=== PATIENT | female | born 1980 | race Caucasian/White ===

== ENCOUNTER 2020-05-04 11:06 | Outpatient (RCR) | payer MEDICAID, SELFPAY | END 2020-07-17 23:59 | LOC: IMMUN 11:06 | PROVIDERS: PCP Internal Medicine; Referring Provider Family Medicine; Visit Provider Family Medicine | DX: Z23 Encounter for immunization (principal) | CPT/HCPCS: 0001A; 0002A; 91300 ==

== ENCOUNTER 2024-07-30 19:14 | Emergency (ER) | payer MEDICAID, SELFPAY ==
[2024-07-30 19:14] VITALS: BP 167/109; PULSE 99; RESP 16; TEMP 37.1; O2SAT 100; BMI 48.2
--- NOTE | 2024-07-30 20:25 | RAD_ITS ---
PROCEDURE: FOOT MIN 3 VIEWS 07/30/2024 REASON FOR EXAM: PAIN TECHNIQUE: FOOT MIN 3 VIEWS, left COMPARISON: None. FINDINGS: Bones: No visible fracture. No suspicious bone lesion. Joints: Mild bunion deformity. Otherwise normal alignment. Soft tissues: Soft tissues are unremarkable. Other: No radiopaque foreign body. RAD/Foot min 3 Views IMPRESSION: NO ACUTE FRACTURE OR DISLOCATION. Reading Location: [id number]
--- OUTSIDE RECORDS SUMMARY | 2024-07-30 20:40 | XMS RPT_ITS | CCD ---
Author Organization [facility] Care Team Providers Care Assistant District Attorney Name Role Phone Sylvie TORO, Errol Primary Care Provider Errol Luu MD Primary Care Provider Lyndon Ladd PA-C Unavailable [phone] Older CERAMIC ENGINEER.CHROME CLEANER, Kiara Unavailable Kate Rivera PA-C Unavailable [phone] SHAKEEL SOLANO Referring Unavailab le GANTA, ERROL Primary Care Unavailable HEATHER LEAL Attending Unavailable ARIA GUILLORYA DAGO Referring Unavailable GANTA, ERROL Primary Care Unavailable Lyndon Ladd PA-C L Unavailable [phone] Guero Rivera PA-Cadette Unavailable [phone] GANTA, ERROL Primary Care Unavailable ROOT, TICO Referring Unavailable GANTA, ERROL Primary Care Unavailable ROOT, TICO Attending Unavailable GANTA, ERROL Referring Unavailable GANTA, ERROL Primary Care Unavailable ROSIE RATLIFF Attending Unavailable GANTA, ERROL Primary Care Unavailable MARIO OSBORNE Referring Unavailable GANTA, ERROL Primary Care Unavailable ROOT, TICO Referring Unavailable GANTA, ERROL Primary Care Unavailable MARIO OSBORNE Attending Unavailable EVELIA ZAMUDIODRA Referring Unavailable GUILLORY SEEMA DAGO Referring Unavailable GANTA, ERROL Primary Care Unavailable GANTA, ERROL Primary Care Unavailable SELF Referring Unavailable ROSIE RATLIFF Attending Unavailable TANKHA, CIERA Referring Unavailable GANTA, ERROL Primary Care Unavailable MARIO TOTH Attending Unavailable GANTA, ERROL Primary Care Unavailable JEREMIAH, YAHAIRA Referring Unavailable GANTA, ERROL Primary Care Unavailable JEREMIAH YAHAIRA Referring Unavailable GANTA, ERROL Primary Care Unavailable IGOR BLAIR Referring Unavailable TANKHA, CIERA Referring Unavailable GANTA, ERROL Primary Care Unavailable BLAIRIGOR LEE Attending Unavailable GANTA, ERROL Primary Care Unavailable VANCE GRAY Attending Unavailable KAE LENNON Referring Unavailable SEEMA GUILLORY Attending Unavailable GANTA, ERROL Primary Care Unavailable ROOT, TICO Referring Unavailable GANTA, ERROL Primary Care Unavailable GANTA, ERROL Primary Care Unavailable NASREEN SOLORZANO Attending Unavailable IGOR BLAIR P Referring Unavailable GANTA, ERROL Primary Care Unavailable KAE LENNON Referring Unavailable VEERAMACHANENI, SHAKEEL Attending Unavailab le GANTA, ERROL Referring Unavailable GANTA, ERROL Primary Care Unavailable GANTA, ERROL Primary Care Unavailable ROSIE RATLIFF Attending Unavailable GANTA, ERROL Primary Care Unavailable GANTA, ERROL Primary Care Unavailable GANTA, ERROL Primary Care Unavailable KHADAR RATLIFFICA Attending Unavailable CHELLY CAM Referring Unavailable MARIO OSBORNE Attending Unavailable GANTA, ERROL Primary Care Unavailable MARIO OSBORNE Referring Unavailable GANTA, ERROL Primary Care Unavailable SELF Referring Unavailable YAHAIRA DANIELS Attending Unavailable GANTA, ERROL Primary Care Unavailable YAHAIRA DANIELS Referring Unavailable GANTA, ERROL Primary Care Unavailable ROOT, TICO Referring Unavailable GANTA, ERROL Primary Care Unavailable BLAIRIGOR LEE P Referring Unavailable GANTA, ERROL Primary Care Unavailable GANTA, ERROL Primary Care Unavailable JUNG ROSIE Referring Unavailable BENNIE ANGEL Attending Unavailable GANTA, ERROL Primary Care Unavailable LIZZ, DESIRAE Attending Unavailable MUKULTOFRANKTZ, DESIRAE Referring Unavailable GANTA, ERROL Primary Care Unavailable FABBY GARCIA Attending Unavailable MERLENE MCHUGH Referring Unavailable GANTA, ERROL Primary Care Unavailable JUNG ROSIE Referring Unavailable CIERA KING Attending Unavailable GANTA, ERROL Primary Care Unavailable KAE LENNON Referring Unavailable GANTA, ERROL Primary Care Unavailable GANTA, ERROL Primary Care Unavailable VETOVITZ, DESIRAE Referring Unavailable GANTA, ERROL Primary Care Unavailable VEERAHENRY, RAVALI Referring Unavailab PIYUSH Escobar Attending Unavailable GANTA, ERROL Primary Care Unavailable BLAIRIGOR LEE P Referring Unavailable MERLENE MCHUGH Attending Unavailable GANTA, ERROL Primary Care Unavailable SELF Referring Unavailable MUKULTOSOLEDAD, DESIRAE Attending Unavailable Physician , Out [facility] Primary Care Provider Unavailable Provider, Caprice Attending Provider Unavailable Allergies Allergy Classification Reported Allergen(s) Allergy Type Date of Onset Reaction(s) Facility (20 sources) Latex; Translations: [LATEX] Propensity to adverse reactions 2009 [facility] (20 sources) Tomatoes; Translations: [TOMATOES] Propensity to adverse reactions 2009 Hives [facility] Medications Current Medications Medication Drug Class(es) Dates Sig (Normalized) Sig (Original) buPROPion hydrochloride 100 mg oral tablet (20 sources) Aminoketone Start: 07-29-2024 Bupropion Hcl 100 mg tablet Active MG ORAL July 29, 2024 12:00am Complies with drug therapy Start: 05-16-2020 End: 10-22-2023 take 1 tablet by mouth once daily buPROPion XL (WELLBUTRIN XL) 150 mg 24 hr tablet Indications: Depression, unspecified depression type Take 1 tablet by mouth once daily. 90 tablet 3 05/16/2020 03/16/2023 Discontinued buPROPion (WELLB UTRIN) 75 mg tablet Take 100 mg by mouth once daily. Active take 1 tablet by rainer th once daily buPROPion SR (WELLBUTRIN SR) 100 mg 12 hr tablet Take 100 mg by mouth once daily. Active take 1 tablet by rainer th once daily buPROPion (WELLBUTRIN) 75 mg tablet Take 75 mg by mouth once daily. Active Comment on above: Take 1 tablet by rainer th once daily. cetirizine hydrochloride 10 mg oral tablet (1 source) Histamine-1 Receptor Antagonist Start: 07-30-19 take 1 tablet by mouth once daily as needed Cetirizine 10 mg tablet Active 10 MG ORAL DAILY as needed for allergy symptoms July 29, 2024 12:00am Complies with drug therapy cyclobenzaprine hydrochloride 10 mg oral tablet (20 sources) Muscle Relaxant Start: 01-27-20 End: 05-02-19 take 1 tablet by mouth every twenty-four hours as needed cyclobenzaprine (FLEXERIL) 10 mg tablet Take 1 tablet by mouth at bedtime as needed for muscle spasm or pain. 30 tablet 1 05/02/2024 Active Start: 10-31-2022 End: 11-26-2023 take 1 tablet by mouth every twenty-four hours as needed cyclobenzaprine (FLEXERIL) 10 mg tablet Take 1 tablet by mouth at bedtime as needed for muscle spasm or pain. 30 tablet 06/17/2023 11/26/2023 Discontinued (Course of therapy completed) Comment on above: Take 1 tablet by rainer at bedtime as needed for muscle spasm or pain. DULoxetine 60 mg delayed release oral capsule (20 sources) Serotonin and Norepinephrine Reuptake Inhibitor Start: take 1 mg by mouth twice daily Duloxetine 60 mg capsule,delayed release(DR/EC) Active MG ORAL TWICE A DAY July 29, 2024 12:00am Complies with drug therapy Start: 07-29-2024 take 1 mg by mouth twice daily Duloxetine 40 mg capsule,delayed release(DR/EC) Active MG ORAL TWICE A DAY July 29, 2024 12:00am Complies with drug therapy End: 06-16-2024 take 2 capsules by mouth once daily DULoxetine (CYMBALTA) 30 mg capsule Take 60 mg by mouth once daily. 06/16/2024 Discontinued take 1 capsule by mo [facility] twice daily DULoxetine (CYMBALTA) 60 mg capsule Take 60 mg by mouth two times a day. Active End: 06-16-2024 take 40 mg by mouth twice daily DULoxetine (CYMBALTA) 40 mg cpDR Take 40 mg by mouth two times a day. 06/16/2024 Discontinued ELDERBERRY FRUIT (20 sources) elderberry fruit (ELDERBERRY ORAL) Take by mouth. Active enteric contrast (will be provided with radiology test) (1 source) Start: 12-03-19 End: 12-03-19 take 1 dose by mouth once, then take 1 dose by mouth once enteric contrast (will be provided with radiology test) Indications: Left lower quadrant abdominal pain , Periumbilical pain , Periumbilical hernia Take 1 Each by mouth one time only for [address] ABD/PEL WO Routine order Administer, As Directed One Time Only, via Oral, Rectal, both Oral and Rectal, Enteric Tube, Stoma or Indwelling Catheter, Enteric Contrast as designated per enteric contrast guidelines 1 Each 12/03/2023 12/03/2023 Active erythromycin 0.005 mg/mg ophthalmic ointment (1 source) Macrolide, Macrolide Antimicrobial Start: 10-02-19 End: 10-09-19 erythromycin (ROMYCIN) 5 mg/gram (0.5 %) ophthalmic ointment Use 1 application in the right eye four times daily for 7 days. 7 g 1 10/02/2023 10/09/2023 Active gluc zimmerman/chondro zimmerman A/vit C/Mn (GLUCOSAMINE 1500 COMPLEX ORAL) (7 sources) End: 06-13-19 gluc zimmerman/chondro zimmerman A/vit C/Mn (GLUCOSAMINE 1500 COMPLEX ORAL) Take by mouth. 0 06/12/2021 Discontinued gluc zimmerman/chondro zimmerman A/vit C/Mn (GLUCOSAMINE 1500 COMPLEX ORAL) Take by mouth. 0 Active Comment on above: Take by mouth. glucosamine-chondr- cart-collag [id number] mg tab (7 sources) End: 06-12-2021 take 1 tablet by mouth once daily qhwysjrwcax-ykztms-vjkn -collag [id number] mg tab Take 1 tablet by mouth once daily. 0 06/12/2021 Discontinued take 1 tablet by rainer th once daily msgpmrltzhr-wycnmq-porr-collag 125-100-4 0-10 mg tab Take 1 tablet by mouth once daily. 0 Active Comment on above: Take 1 tablet by rainer th once daily. haloperidol 2 mg oral tablet (4 sources) Typical Antipsychotic Start: take 1 mg by mouth once daily as needed Haloperidol 2 mg tablet Active MG ORAL DAILY as needed July 29, 2024 12:00am Complies with drug therapy haloperidol (LUIS FERNANDO DOL) 2 mg tablet Take 2 mg by mouth as needed. Active lisdexamfetamine dimesylate 30 mg oral capsule (6 sources) Central Nervous System Stimulant Start: 11-02-2020 End: 06-12-2021 take 1 capsule by mouth once daily lisdexamfetamine (VYVANSE) 30 mg capsule Indications: ADHD (attention deficit hyperactivity disorder), inattentive type Take 1 capsule by mouth once daily for 30 days. Do not start before November 02, 2020. 30 capsule 0 11/02/2020 06/12/2021 Discontinued Comment on above: Take 1 capsule by mo [facility] once daily for 30 days. Do not start before November 02, 2020. LORazepam 0.5 mg oral tablet (20 sources) Benzodiazepine Start: 07-29-2024 take 2 tablets by mouth in the evening as needed Lorazepam 0.5 mg tablet Active MG ORAL In the EVENING as needed July 29, 2024 12:00am Complies with drug therapy Start: 12-07-2023 ATIVAN 0.5 mg at bedtime as needed. Lorazepam 12/07/2023 Active Start: 04-10-2021 End: 11-26-2023 LORazepam (ATIVAN) 0.5 mg Ta ke 0.5 mg by mouth as needed. 04/10/2021 11/26/2023 Discontinued (Course of therapy completed) Comment on above: Take 1 tablet by rainer th twice daily. Take 0.5 mg by mouth as needed. metroNIDAZOLE 500 mg oral tablet (16 sources) Nitroimidazole Antimicrobial Start: 05-21-19 End: 05-28-19 take 1 tablet by mouth twice daily metroNIDAZOLE (FLAGYL) 500 mg tablet Take 1 tablet by mouth two times a day for 7 days. 14 tablet 05/20/2024 Active Start: 07-15-2023 End: 11-26-2023 metroNIDAZOLE (METROGEL) 0.7 5 % Topical Gel Indications: Rosacea Apply to affected skin face twice daily 45 g 2 07/15/2023 11/26/2023 Discontinued (Course of therapy completed) MULTIVITAMIN ORAL (20 sources) MULTIVITAMIN ORA L Take by mouth once daily. Active MULTIVITAMIN ORA L Take by mouth once daily. 0 Active Comment on above: Take by mouth once d aily. norethindrone 0.35 mg oral tablet (20 sources) Start: 07-29-2024 take 1 mg by mouth once daily Norethindrone (Contraceptive) 0.35 mg tablet Active MG ORAL DAILY July 29, 2024 12:00am Complies with drug therapy Start: 01-08-2023 End: 05-01-2024 take 1 tablet by mouth once daily Norethindrone, Contraceptive, (ORTHO MICRONOR) 0.35 mg tablet Take 1 tablet by mouth once daily. 84 tablet 05/02/2024 Active Start: 04-11-2022 take 1 tablet by rainer th once daily Norethindrone, Contraceptive, (ORTHO MICRONOR) 0.35 mg tablet Take 1 tablet by mouth once daily. 84 tablet 2 04/11/2022 Active Start: 04-17-2021 End: 08-01-2021 take 1 tablet by mouth once daily Norethindrone, Contraceptive, (ORTHO MICRONOR) 0.35 mg tablet Take 1 tablet by mouth once daily. 84 tablet 2 08/01/2021 Active Start: 07-24-2020 End: 04-06-2021 take 1 tablet by mouth once daily Norethindrone, Contraceptive, (ORTHO MICRONOR) 0.35 mg tablet Take 1 tablet by mouth once daily. 3 Package 1 07/24/2020 04/06/2021 Discontinued Comment on above: Take 1 tablet by [facility] once daily. predniSONE 20 mg oral tablet (1 source) Start: 06-26-19 End: 07-01-19 take 2 tablets by mouth once daily predniSONE (DELTASONE) 20 mg tablet Indications: Acute pain of left shoulder Take 2 tablets by mouth once daily for 5 days. 10 tablet 0 06/26/2023 07/01/2023 Active 24 hr venlafaxine 37.5 mg extended release oral capsule (7 sources) Serotonin and Norepinephrine Reuptake Inhibitor Start: 09-04-19 End: 06-13-19 take 1 capsule by mouth once daily venlafaxine ER (EFFEXOR XR) 37.5 mg 24 hr capsule Indications: Generalized anxiety disorder , Recurrent major depressive disorder, in partial remission (HCC) Take 1 capsule by mouth once daily. 30 capsule 2 09/03/2020 06/12/2021 Discontinued Comment on above: Take 1 capsule by [facility] once daily. Completed/Discontinued Medications Medication Drug Class(es) Dates Sig (Normalized) Sig (Original) acetylcholine 10% solution - [facility] (2 sources) Start: 12-28-2023 End: 12-28-2023 acetylcholine 10% solution - [facility] Start: 12-28-2023 End: 12-28-2023 20 mL, IRRIGATION, ONCE, 1 d ose, On 12/28/23 at 0930, Protect from Light. Refrigerate, AMB MED ORDERS Amoxicillin (20 sources) Penicillin-class Antibacterial End: 10-31-2022 AMOXICILLIN ORAL Take by mouth. dental 0 10/31/2022 Discontinued AMOXICILLIN ORAL Take by mouth. dental 0 Active Comment on above: Take by mouth. denta l amphetamine aspartate 7.5 mg / amphetamine sulfate 7.5 mg / dextroamphetamine saccharate 7.5 mg / dextroamphetamine sulfate 7.5 mg oral tablet (20 sources) Central Nervous System Stimulant Start: 08-17-2023 End: 10-22-2023 Amphetamine-Dextroamphe tamine (ADDERALL) 30 mg tablet 08/17/2023 10/22/2023 Discontinued Start: 04-10-2021 End: 10-31-2022 take 1 tablet by mouth once daily as needed Amphetamine-Dextroamphetamine (ADDERALL) 30 mg tablet Take 30 mg by mouth once daily. Takes as needed 0 04/10/2021 10/31/2022 Discontinued Start: 04-10-2021 End: 10-31-2022 take 1 tablet by mouth once daily amphetamine-dextroamphetamine 15 mg tabl et Take 1 tablet by mouth once daily. 0 04/10/2021 10/31/2022 Discontinued amphetamine-dext roamphetamine (ADDERALL) 15 mg tablet Take 7 mg by mouth as needed. Active take 1 tablet by rainer th twice daily amphetamine-dextroamphetamine (ADDERALL) 15 mg tablet Take 15 mg by mouth two times a day. Active Comment on above: Take 1 tablet by rainer th once daily. Take 30 mg by mouth once daily. Takes as needed betamethasone 3 mg/ml / betamethasone acetate 3 mg/ml injectable suspension (8 sources) Corticosteroid Start: 07-11-2024 End: 07-11-2024 betamethasone acetate-betamethasone sodium phosphate 6 mg injection (CELESTONE) Start: 07-11-2024 End: 07-11-2024 6 mg, Injection - FOR ORTHO USE ONLY, ONCE, 1 dose, Starting on Thu07/11/24 at 1117, Until Thu07/11/24 at 1117 Start: 09-02-2021 End: 09-02-2021 betamethasone acetate-betame thasone sodium phosphate 6 mg injection (CELESTONE) Start: 09-02-2021 End: 09-02-2021 betamethasone acetate-betame thasone sodium phosphate 6 mg injection (CELESTONE) Start: 06-03-2021 End: 06-03-2021 betamethasone acetate-betame thasone sodium phosphate 6 mg injection (CELESTONE) Start: 06-03-2021 End: 06-03-2021 betamethasone acetate-betame thasone sodium phosphate 6 mg injection (CELESTONE) Biotin / Calcium Carbonate (20 sources) End: 10-22-2023 biotin/calcium carbonate (BI OTIN 100+10 ORAL) Take by mouth once daily. 10/22/2023 Discontinued biotin/calcium c arbonate (BIOTIN 100+10 ORAL) Take by mouth once daily. Active biotin/calcium c arbonate (BIOTIN 100+10 ORAL) Take by mouth once daily. 0 Active biotin/calcium c arbonate (BIOTIN 100+10 ORAL) Take by mouth. 0 Active Comment on above: Take by mouth. Take by mouth once d aily. busPIRone hydrochloride 10 mg oral tablet (1 source) Start: 2020 End: 2020 take 1 tablet by mouth three times daily busPIRone (BUSPAR) 10 mg tablet Indications: Anxiety Take 1 tablet by mouth three times daily. 90 tablet 5 08/06/2020 09/03/2020 Discontinued calcium chloride 0.0014 meq/ml / potassium chloride 0.004 meq/ml / sodium chloride 0.103 meq/ml / sodium lactate 0.028 meq/ml injectable solution (1 source) Start: 2024 End: 2024 take 30 mL intravenously every hour 30 mL/hr, INTRAVENOUS, CONTINUOUS, Starting on Thu03/30/24 at 0800, Until Thu03/30/24 at 0940, Preprocedure cholecalciferol 0.125 mg oral tablet (20 sources) Vitamin D Start: 2016 End: 2023 take 1 tablet by mouth once daily Cholecalciferol, Vitamin D3, 5,000 unit tab Take 1 tablet by mouth once daily. 0 02/21/2016 11/26/2023 Discontinued (Course of therapy completed) Comment on above: Take 1 tablet by rainer once daily. diclofenac sodium 75 mg delayed release oral tablet (20 sources) Nonsteroidal Anti-inflammatory Drug Start: 2022 End: 2023 take 1 tablet by mouth twice daily for pain diclofenac, EC, (VOLTAREN) 75 mg EC tablet Indications: Primary osteoarthritis of both knees TAKE 1 TABLET BY MOUTH TWICE DAILY FOR PAIN 60 tablet 11/17/2022 10/22/2023 Discontinued (Other) Start: 06-30-2022 End: 10-27-2022 take 1 tablet by mouth twice daily for pain diclofenac, EC, (VOLTAREN) 75 mg EC tablet Indications: Primary osteoarthritis of both knees TAKE 1 TABLET BY MOUTH TWICE DAILY FOR PAIN 60 tablet 0 10/27/2022 Active Start: 09-09-2021 End: 02-13-2022 take 1 tablet by mouth twice daily for pain diclofenac, EC, (VOLTAREN) 75 mg EC tablet Indications: Primary osteoarthritis of both knees Take 1 tablet by mouth twice daily. FOR PAIN 60 tablet 0 02/14/2022 Active Start: 07-01-2021 End: 08-01-2021 take 1 tablet by mouth twice daily for pain diclofenac, EC, (VOLTAREN) 75 mg EC tablet Indications: Primary osteoarthritis of both knees Take 1 tablet by mouth twice daily. FOR PAIN 60 tablet 0 08/01/2021 Active Start: 05-14-2021 End: 06-29-2021 take 1 tablet by mouth twice daily for pain diclofenac, EC, (VOLTAREN) 75 mg EC tablet Indications: Primary osteoarthritis of both knees Take 1 tablet by mouth twice daily. FOR PAIN 60 tablet 0 05/14/2021 06/29/2021 Discontinued Start: 04-08-2021 End: 05-10-2021 take 1 tablet by mouth twice daily for pain diclofenac, EC, (VOLTAREN) 75 mg EC tablet Indications: Primary osteoarthritis of both knees Take 1 tablet by mouth twice daily. FOR PAIN 60 tablet 0 04/08/2021 05/10/2021 Discontinued Comment on above: Take 1 tablet by rainer th twice daily. FOR PAIN Take 1 tablet by rainer th twice daily. TAKE 1 TABLET BY RAINER TH TWICE DAILY FOR PAIN gabapentin 100 mg oral capsule (8 sources) Anti-epileptic Agent Start: 4 End: 4 take 1 capsule by mouth once daily at bedtime, then take 1 capsule by mouth twice daily, then take 1 capsule by mouth three times daily gabapentin (NEURONTIN) 100 mg capsule Take 1 capsule by mouth daily at bedtime for 7 days, THEN 1 capsule two times a day for 7 days, THEN 1 capsule three times a day for 14 days. 63 capsule 10/22/2023 11/26/2023 Discontinued (Course of therapy completed) ketoconazole 20 mg/ml medicated shampoo (20 sources) Azole Antifungal Start: End: ketoconazole (NIZORAL) 2 % shampoo Indications: Seborrheic dermatitis of scalp Apply 1 application to affected area two times a week. 120 mL 12/12/2022 10/22/2023 Discontinued Start: 04-08-2021 End: 02-13-2022 ketoconazole (NIZORAL) 2 % s hampoo Indications: Seborrheic dermatitis of scalp Apply 1 application to affected area two times a week. 120 mL 0 02/14/2022 Active Start: 05-16-2020 End: 09-03-2020 ketoconazole (NIZORAL) 2 % s hampoo Indications: Seborrheic dermatitis of scalp Apply 1 application to affected area two times a week. 120 mL 05/16/2020 09/03/2020 Discontinued Comment on above: Apply 1 application to affected area two times a week. L-TYROSINE ORAL (20 sources) End: 10-31-2022 take 1 capsule by mouth twice daily L-TYROSINE ORAL Take 1 capsule by mouth twice daily. 10/31/2022 Discontinued End: 10-31-2022 take 1 capsule by mouth twice daily L-TYROSINE ORAL Take 1 capsule by mouth twice daily. 0 10/31/2022 Discontinued take 1 capsule by mo ut twice daily L-TYROSINE ORAL Take 1 capsule by mouth twice daily. 0 Active Comment on above: Take 1 capsule by mo [facility] twice daily. 10 ml lidocaine hydrochloride 10 mg/ml injection (18 sources) Antiarrhythmic, Amide Local Anesthetic Start: 07-11-2024 End: 07-11-2024 lidocaine (PF) 10 mg/mL (1 %) 5 mL injection (XYLOCAINE) Start: 07-11-2024 End: 07-11-2024 5 mL, Injection - FOR ORTHO USE ONLY, ONCE, 1 dose, Starting on Thu07/11/24 at 1117, Until Thu07/11/24 at 1117 Start: 05-20-2024 End: 05-20-2024 lidocaine (PF) 10 mg/mL (1 % ) 4 mL injection (XYLOCAINE) Start: 05-20-2024 End: 05-20-2024 4 mL, Injection - FOR ORTHO USE ONLY, ONCE, 1 dose, Starting on Thu05/20/24 at 1135, Until Thu05/20/24 at 1135 Start: 02-05-2024 End: 02-05-2024 lidocaine (PF) 10 mg/mL (1 % ) 4 mL injection (XYLOCAINE) Start: 02-05-2024 End: 02-05-2024 4 mL, Injection - FOR ORTHO USE ONLY, ONCE, 1 dose, Starting on Thu02/05/24 at 0938, Until Thu02/05/24 at 0938 Start: 11-03-2023 End: 11-03-2023 lidocaine (PF) 10 mg/mL (1 % ) 4 mL injection (XYLOCAINE) Start: 11-03-2023 End: 11-03-2023 4 mL, Injection - FOR ORTHO USE ONLY, ONCE, 1 dose, Starting on Thu11/03/23 at 1042, Until Thu11/03/23 at 1042 Start: 07-17-2023 End: 07-17-2023 lidocaine (PF) 10 mg/mL (1 % ) 4 mL injection (XYLOCAINE) Start: 09-02-2021 End: 09-02-2021 lidocaine (PF) 10 mg/mL (1 % ) 5 mL injection (XYLOCAINE) Start: 09-02-2021 End: 09-02-2021 lidocaine (PF) 10 mg/mL (1 % ) 5 mL injection (XYLOCAINE) Start: 06-03-2021 End: 06-03-2021 lidocaine (PF) 10 mg/mL (1 % ) 5 mL injection (XYLOCAINE) Start: 06-03-2021 End: 06-03-2021 lidocaine (PF) 10 mg/mL (1 % ) 5 mL injection (XYLOCAINE) magnesium oxide 400 mg oral tablet (20 sources) Start: 08-11-2018 End: 10-31-2022 take 1 tablet by mouth once daily at bedtime magnesium oxide 400 mg magnesium tab Take 400 mg by mouth daily at bedtime. 08/11/2018 10/31/2022 Discontinued Comment on above: Take 400 mg by mouth daily at bedtime. MEDICAL SUPPLY (20 sources) Start: 04-10-2021 End: 10-31-2022 MEDICAL SUPPLY Indications: Acute pain of left knee , Ambulatory dysfunction Cane- 1 Each 0 04/10/2021 10/31/2022 Discontinued Start: 04-10-2021 MEDICAL SUPPLY Indications: Acute pain of left knee , Ambulatory dysfunction Cane- 1 Each 0 04/10/2021 Active Comment on above: Cane- meloxicam 15 mg oral tablet (1 source) Nonsteroidal Anti-inflammatory Drug Start: End: take 1 tablet by mouth once daily for pain meloxicam (MOBIC) 15 mg tablet Indications: Chronic pain of both knees Take 1 tablet by mouth once daily. for pain. Take with food. 30 tablet 08/06/2020 09/03/2020 Discontinued (Course of therapy completed) methylphenidate hydrochloride 5 mg oral tablet (1 source) Central Nervous System Stimulant Start: End: take 1 tablet by mouth twice daily methylphenidate (RITALIN) 5 mg tablet Indications: ADHD (attention deficit hyperactivity disorder), inattentive type Take 1 tablet by mouth twice daily for 30 days. 60 tablet 06/28/2020 09/03/2020 Discontinued (Lack of Efficacy) 24 hr paliperidone 3 mg extended release oral tablet (15 sources) Atypical Antipsychotic Start: End: paliperidone ER (INVEGA) 3 mg 24 hr tablet 12/20/2023 03/11/2024 Discontinued phentermine hydrochloride 37.5 mg oral tablet (20 sources) Sympathomimetic Amine Anorectic Start: End: take 1 tablet by mouth once daily Phentermine HCl 37.5 mg tablet Indications: Morbid obesity with BMI of 40.0-44.9, adult (HCC) Take 1 tablet by mouth once daily for 30 days. 30 tablet 03/06/2023 04/03/2023 Discontinued Start: 10-31-2022 End: 02-23-2023 take 1 tablet by mouth once daily Phentermine HCl 37.5 mg tablet Indications: Morbid obesity with BMI of 40.0-44.9, adult (HCC) Take 1 tablet by mouth once daily for 30 days. Do not start before January 24, 2023. 30 tablet 0 01/24/2023 02/23/2023 Active Comment on above: Take 1 tablet by rainer th once daily for 30 days. Take 1 tablet by rainer th once daily for 30 days. Do not start before January 24, 2023. Take 1 tablet by [facility] once daily for 30 days. Do not start before December 25, 2022. Take 1 tablet by [facility] once daily for 30 days. Do not start before June 03, 2023. Take 1 tablet by [facility] once daily for 30 days. Do not start before May 04, 2023. Take 1 tablet by [facility] once daily for 30 days. Do not start before April 04, 2023. polyethylene glycol 3350 [id number] mg / potassium chloride 2970 mg / sodium bicarbonate 6740 mg / sodium chloride 5860 mg / sodium sulfate 32781 mg powder for oral solution (1 source) Osmotic Laxative Start: 12-07-2023 End: 12-07-2023 peg 3350-Electrolytes (GOLYTELY) 236-22.74-6.74 -5.86 gram suspension Indications: Special screening for malignant neoplasms, colon Take 4,000 mL by mouth one time only for 1 dose. Refer to printed prep instructions from your provider. 4000 mL 12/07/2023 12/07/2023 1 ml triamcinolone acetonide 40 mg/ml injection (10 sources) Corticosteroid Start: 05-20-2024 End: 05-20-2024 triamcinolone acetonide 40 mg injection (KeNALog 40) Start: 05-20-2024 End: 05-20-2024 40 mg, Injection - FOR ORTHO USE ONLY, ONCE, 1 dose, Starting on Thu05/20/24 at 1135, Until Thu05/20/24 at 1135 Start: 02-05-2024 End: 02-05-2024 triamcinolone acetonide 40 m g injection (KeNALog 40) Start: 02-05-2024 End: 02-05-2024 40 mg, Injection - FOR ORTHO USE ONLY, ONCE, 1 dose, Starting on Thu02/05/24 at 0938, Until Thu02/05/24 at 0938 Start: 11-03-2023 End: 11-03-2023 triamcinolone acetonide 40 m g injection (KeNALog 40) Start: 11-03-2023 End: 11-03-2023 40 mg, Injection - FOR ORTHO USE ONLY, ONCE, 1 dose, Starting on Thu11/03/23 at 1042, Until Thu11/03/23 at 1042 Start: 07-17-2023 End: 07-17-2023 triamcinolone acetonide 40 m g injection (KeNALog 40) BGUKANS-OPDG-MKNBT-OREG-CAPR YL ORAL (20 sources) End: 11-26-2023 KLXZMIT-OJUS-XOKTA-OREG-CAPR YL ORAL Take by mouth once daily. 11/26/2023 Discontinued (Course of therapy completed) HXGLGLH-DBHO-GFB QI-QRKT-RPGDPJ ORAL Take by mouth once daily. Active IIPBRUH-RGQX-WRI TT-QMNR-NKKYWA ORAL Take by mouth once daily. 0 Active XHQRRSH-VMYP-MGC ND-TCVR-EOSDWX ORAL Take by mouth. 0 Active Comment on above: Take by mouth. Take by mouth once d aily. Vitamin B Complex (8 sources) Start: 02-21-2016 End: 06-12-2021 take 1 tablet by mouth once daily vitamin b complex (B COMPLETE) tab Take 1 tablet by mouth once daily. 0 02/21/2016 06/12/2021 Discontinued Start: 02-21-2016 take 1 tablet by [facility] once daily vitamin b complex (B COMPLETE) tab Take 1 tablet by mouth once daily. 0 02/21/2016 Active Comment on above: Take 1 tablet by rainer [facility] once daily. VITAMIN E ORAL (17 sources) End: 10-31-2022 VITAMIN E ORAL Take by mouth once daily. 0 10/31/2022 Discontinued VITAMIN E ORAL T gris by mouth once daily. 0 Active Comment on above: Take by mouth once d aily. Problems Active Problems Problem Classification Problem Date Documented Date Episodic/Chronic Adjustment disorders (1 source) Adjustment disorder with depressed mood; Translations: [Adjustment disorder with depressed mood] 01-27-2024 Chronic Anxiety disorders (20 sources) Generalized anxiety disorder; Translations: [Generalized anxiety disorder] Onset: 09-30-2016 03-10-2018 Chronic Attention-deficit, conduct, and disruptive behavior disorders (20 sources) Attention deficit hyperactivity disorder, combined type; Translations: [Attention-deficit hyperactivity disorder, combined type] Onset: 03-10-2018 04-10-2021 Chronic Cardiac dysrhythmias (2 sources) Postural orthostatic tachycardia syndrome ; Translations: [POTS (postural orthostatic tachycardia syndrome)] 10-22-2023 Chronic Disorders of lipid metabolism (2 sources) Mixed hyperlipidemia; Translations: [Mixed hyperlipidemia] Onset: 12-05-2023 12-04-2023 Chronic Disorders usually diagnosed in infancy, childhood, or adolescence (20 sources) Autism spectrum disorder; Translations: [Autistic disorder] Onset: 04-10-2021 04-10-2021 Chronic Immunizations and screening for infectious disease (5 sources) Patient encounter status; Translations: [Encounter for immunization] Onset: 12-03-2023 10-31-2022 Episodic Inflammation; infection of eye (except that caused by tuberculosis or sexually transmitteddisease) (1 source) Hordeolum externum of upper eyelid of right eye; Translations: [Hordeolum externum right upper eyelid] 10-02-2023 Episodic Joint disorders and dislocations; trauma-related (2 sources) Chondromalacia of right patella; Translations: [Chondromalacia patellae, right knee] Chronic Joint disorders and dislocations; trauma-related (2 sources) Chondromalacia of left patella; Translations: [Chondromalacia patellae, left knee] Chronic Malaise and fatigue (20 sources) Chronic fatigue syndrome; Translations: [Chronic fatigue syndrome with fibromyalgia] Onset: 1996 03-15-2024 Chronic Miscellaneous mental health disorders (20 sources) Psychosomatic factor in physical condition; Translations: [Psychological and behavioral factors associated with disorders or diseases classified elsewhere] Onset: 03-10-2018 03-10-2018 Chronic Mood disorders (20 sources) Major depression in partial remission; Translations: [Major depressive disorder, single episode, in partial remission] Onset: 09-30-2016 03-10-2018 Chronic Nonmalignant breast conditions (5 sources) Pseudoangiomatous stromal hyperplasia of breast; Translations: [Other specified disorders of breast] Episodic Osteoarthritis (20 sources) Primary gonarthrosis, bilateral; Translations: [Bilateral primary osteoarthritis of knee] Onset: 05-10-2024 Chronic Other acquired deformities (1 source) Lordosis, unspecified, lumbar region; Translations: [Other lordosis (acquired)] 06-09-2024 Chronic Other connective tissue disease (1 source) Swelling of lower limb; Translations: [Other specified soft tissue disorders] Episodic Other connective tissue disease (3 sources) Fibromyalgia; Translations: [Fibromyalgia] 03-26-2023 Episodic Other connective tissue disease (2 sources) Hypermobility syndrome; Translations: [Hypermobility syndrome] 10-22-2023 Episodic Other ear and sense organ disorders (1 source) Hearing loss; Translations: [Other specified hearing loss, unspecified ear] 01-06-2024 Chronic Other ear and sense organ disorders (1 source) Other specified hearing loss, unspecified ear; Translations: [Other specified hearing loss, unspecified ear] Onset: 01-06-2024 Chronic Other ear and sense organ disorders (3 sources) Bilateral tinnitus; Translations: [Tinnitus, bilateral] 11-26-2023 Episodic Other ear and sense organ disorders (2 sources) Ear sensations - finding; Translations: [Other specified disorders of ear, bilateral] 11-26-2023 Episodic Other inflammatory condition of skin (2 sources) Rosacea; Translations: [Rosacea, unspecified] 03-26-2023 Chronic Other inflammatory condition of skin (1 source) Rosacea, unspecified; Translations: [Rosacea] Onset: 07-15-2023 Chronic Other inflammatory condition of skin (1 source) Seborrheic dermatitis of scalp; Translations: [Seborrheic dermatitis, unspecified] Episodic Other lower respiratory disease (1 source) Dyspnea on exertion; Translations: [Shortness of breath] 12-03-2023 Episodic Other nervous system disorders (1 source) Other chronic pain; Translations: [Chronic midline thoracic back pain] Onset: 06-17-2024 Chronic Other nervous system disorders (1 source) Impairment of balance; Translations: [Other abnormalities of gait and mobility] 11-26-2023 Episodic Other non-traumatic joint disorders (20 sources) Disorder of shoulder; Translations: [Other specified joint disorders, left shoulder] Onset: 05-12-2024 07-17-2023 Episodic Other non-traumatic joint disorders (1 source) Pain in left knee; Translations: [Pain in both knees, unspecified chronicity] Onset: 04-29-2024 Episodic Other nutritional; endocrine; and metabolic disorders (20 sources) Morbid obesity; Translations: [Morbid (severe) obesity due to excess calories] Onset: 09-30-2016 09-30-2016 Chronic Other nutritional; endocrine; and metabolic disorders (3 sources) Body mass index 40+ - severely obese; Translations: [Morbid (severe) obesity due to excess calories] 10-31-2022 Chronic Other nutritional; endocrine; and metabolic disorders (3 sources) Severe obesity; Translations: [Morbid (severe) obesity due to excess calories] 03-26-2023 Chronic Other nutritional; endocrine; and metabolic disorders (1 source) Morbid (severe) obesity due to excess calories; Translations: [Class 3 severe obesity due to excess calories without serious comorbidity with body mass index (BMI) of 40.0 to 44.9 in adult ([facility])] Onset: 01-06-2024 Chronic Other nutritional; endocrine; and metabolic disorders (1 source) Body mass index (BMI) 40.0-44.9, adult; Translations: [Class 3 severe obesity due to excess calories without serious comorbidity with body mass index (BMI) of 40.0 to 44.9 in adult ([facility])] Onset: 01-06-2024 Chronic Other nutritional; endocrine; and metabolic disorders (1 source) Weight gain; Translations: [Abnormal weight gain] 10-31-2022 Episodic Other screening for suspected conditions (not mental disorders or infectious disease) (20 sources) Mammography abnormal; Translations: [Other abnormal and inconclusive findings on diagnostic imaging of breast] Onset: 12-03-2023 Episodic Other upper respiratory infections (1 source) Pharyngitis; Translations: [Acute pharyngitis, unspecified] 12-31-2023 Episodic Residual codes; unclassified (5 sources) Diffuse pain; Translations: [Pain, unspecified] 10-31-2022 Episodic Residual codes; unclassified (2 sources) Pain; Translations: [Pain, unspecified] 10-29-2023 Episodic Residual codes; unclassified (1 source) Intolerant of ambient temperature; Translations: [Other general symptoms and signs] 11-26-2023 Episodic Residual codes; unclassified (1 source) Family history of cancer of colon; Translations: [Family history of malignant neoplasm of digestive organs] 12-03-2023 Episodic Residual codes; unclassified (1 source) FH: Thyroid disorder; Translations: [Family history of other endocrine, nutritional and metabolic diseases] 12-03-2023 Episodic Residual codes; unclassified (1 source) Family history of diabetes mellitus; Translations: [Family history of diabetes mellitus] 12-03-2023 Episodic Residual codes; unclassified (8 sources) At risk of sexually transmitted infection ; Translations: [High risk heterosexual behavior] Onset: 05-19-2024 05-19-2024 Episodic Schizophrenia and other psychotic disorders (20 sources) Schizoaffective disorder; Translations: [Schizoaffective disorder, unspecified] Onset: 12-11-2023 03-15-2024 Chronic Spondylosis; intervertebral disc disorders; other back problems (20 sources) Degeneration of lumbar intervertebral disc; Translations: [Degeneration of intervertebral disc of lumbar region with lower extremity pain] Onset: 05-12-2024 05-09-2024 Chronic Unclassified (1 source) Breast finding 07-11-2024 Unclassified (1 source) Degeneration of intervertebral disc of lumbar region with lower extremity pain; Translations: [Degeneration of intervertebral disc of lumbar region with lower extremity pain] Onset: 05-12-2024 Unclassified (1 source) Class 3 severe obesity due to excess calories without serious comorbidity with body mass index (BMI) of 40.0 to 44.9 in adult ([facility]); Translations: [Class 3 severe obesity due to excess calories without serious comorbidity with body mass index (BMI) of 40.0 to 44.9 in adult (HCC)] Onset: 01-06-2024 Unclassified (1 source) POTS (postural orthostatic tachycardia syndrome); Translations: [POTS (postural orthostatic tachycardia syndrome)] Onset: 11-26-2023 Past or Other Problems Problem Classification Problem Date Documented Date Episodic/Chronic Abdominal hernia (3 sources) Umbilical hernia; Translations: [Umbilical hernia without obstruction or gangrene] Onset: 12-03-2023 12-03-2023 Episodic Abdominal pain (6 sources) Left lower quadrant pain; Translations: [Left lower quadrant pain] Onset: 12-03-2023 12-03-2023 Episodic Administrative/social admission (2 sources) Inadequate community resources; Translations: [Unavailability and inaccessibility of other helping agencies] Onset: 12-03-2023 12-03-2023 Episodic Attention-deficit, conduct, and disruptive behavior disorders (20 sources) Psychosomatic factor in physical condition; Translations: [Other symptoms and signs involving appearance and behavior] Onset: 03-10-2018 03-10-2018 Episodic Cardiac dysrhythmias (3 sources) Tachycardia; Translations: [Tachycardia, unspecified] Onset: 11-26-2023 11-26-2023 Episodic Conditions associated with dizziness or vertigo (20 sources) Dizziness; Translations: [Dizziness and giddiness] Onset: 12-17-2023 11-26-2023 Episodic Other connective tissue disease (1 source) Fibromyalgia; Translations: [Fibromyalgia] Onset: 01-27-2024 Episodic Other ear and sense organ disorders (1 source) Tinnitus, bilateral; Translations: [Tinnitus, bilateral] Onset: 01-06-2024 Episodic Other ear and sense organ disorders (1 source) Other specified disorders of ear, bilateral; Translations: [Sensation of fullness in both ears] Onset: 01-06-2024 Episodic Other lower respiratory disease (1 source) Shortness of breath; Translations: [Shortness of breath on exertion] Onset: 12-03-2023 Episodic Other non-traumatic joint disorders (20 sources) Pain in right knee; Translations: [Pain in joint, lower leg] Onset: 08-20-2020 Resolved: 12-18-2020 Episodic Other non-traumatic joint disorders (3 sources) Pain in left shoulder; Translations: [Pain in joint, shoulder region] Onset: 07-17-2023 06-26-2023 Episodic Other and delivery including normal (20 sources) Normal in primigravida; Translations: [Encounter for supervision of normal first , unspecified trimester] Onset: 10-17-2005 Resolved: 2009 2009 Episodic Other skin disorders (1 source) Nonscarring hair loss, unspecified; Translations: [Loss of hair] Onset: 12-04-2023 Episodic Residual codes; unclassified (1 source) Family history of diabetes mellitus; Translations: [Family history of diabetes mellitus] Onset: 12-03-2023 Episodic Residual codes; unclassified (1 source) Family history of other endocrine, nutritional and metabolic diseases; Translations: [Family history of thyroid disease] Onset: 12-03-2023 Episodic Residual codes; unclassified (1 source) Family history of malignant neoplasm of digestive organs; Translations: [Family history of colon cancer] Onset: 12-03-2023 Episodic Residual codes; unclassified (2 sources) Pain, unspecified; Translations: [Pain] Onset: 10-22-2023 Episodic Spondylosis; intervertebral disc disorders; other back problems (20 sources) Chronic low back pain; Translations: [Chronic bilateral low back pain without sciatica] Onset: 07-01-2018 07-01-2018 Episodic Syncope (2 sources) Near syncope; Translations: [Syncope and collapse] Onset: 12-17-2023 11-26-2023 Episodic Unclassified (1 source) Patient encounter status 03-30-2024 Results Test Name Value Interpretation Reference Range Facil ity CNOVon 07-11-2024 CNOV Office Visit (ORTHWS ) LYNDON BURROUGHS ([id number]) 1980 F Date Time Provider Department 07/11/24 10:30 AM DESIRAE ZAMUDIO During your visit today, we recorded the following information about you: Seema Fofana MA 07/11/2024 11:18 AM Signed Patient presents with: Left Knee - Follow Up Right Knee - Follow Up: 9 weeks post visit OA bilateral knees - Here for injections AMB ROOMING INTAKE FLOWSHEET DATA Pain Pain Level: 6 Pain Location: Knee-Right Description: Aching, Sharp, Stiffness Duration Amount of Time: 5 Duration Units: Years Frequency: Continuous Intervention/Comfort measure: Medication, Reposition, Relaxation Patient here for injections bilateral knees.Using [place] balm for the pain. Desirae Zamudio PA-C 07/11/2024 11:18 AM Signed Patient presents for bilateral knee corticosteroid injections, has an upcoming trip to [place] next week. Large Joint Arthro/Inj: bilateral knee joints 07/11/2024 11:17 AM The procedure site was prepped in the usual sterile fashion. Site: bilateral knee joints Medications (Right): 6 mg betamethasone acetate-betamethasone sodium phosphate 6 mg/mL Medications (Left): 6 mg betamethasone acetate-betamethasone sodium phosphate 6 mg/mL Anesthetics (Right): 5 mL lidocaine (PF) 10 mg/mL (1 %) Anesthetics (Left): 5 mL lidocaine (PF) 10 mg/mL (1 %) Outcome: Tolerated well, no immediate complications Post-injection instructions were reviewed with the patient and the patient voiced understanding of these instructions. Informed Consent Consent Obtained: Verbal Waterfall Protocol A moment to CARE was completed. SIGN IN Sign in communication not applicable due to emergent procedure. Personnel directly involved with the procedure wore the appropriate PPE. Special Equipment: N/A Patient/Surrogate Stated/Verified: Patient name, Date of , Relevant allergies and Intended procedure TIME OUT Relevant labs, photos, and/or imaging studies have been reviewed. Consent documented and matches the intended procedure. Correct side/site marked and visible. Medications required for procedure verified. No fire risk assessment and interventions applicable. No implant(s) inserted. SIGN OUT No specimen collected. No post-procedure POC communication to the patient's multidisciplinary team (including the bedside nurse for hospitalized patients) applicable. Referring Provider: DESIRAE ZAMUDIO [[id number]] Allergies As of Date: 07/11/2024 Noted Allergy Reaction LATEX 2009 TOMATOES 2009 4 - Hives Date Reviewed: 07/11/2024 Reviewed by: Seema Fofana MA - Fully Assessed Reason for Visit: Follow Up [171] Follow Up [171] Cmt: 9 weeks post visit OA bilateral knees - Here for injections Primary Visit Diagnosis:Primary osteoarthritis of both knees [M17.0] Order(s):Large Joint Arthro/Inj: bilateral knee joints [VYN568] Order #: [id number] [] betamethasone acetate-betamethasone sodium phosphate 6 mg injection (CELESTONE)Disp: Rfl: [] betamethasone acetate-betamethasone sodium phosphate 6 mg injection (CELESTONE)Disp: Rfl: [] lidocaine (PF) 10 mg/mL (1 %) 5 mL injection (XYLOCAINE)Disp: Rfl: [] lidocaine (PF) 10 mg/mL (1 %) 5 mL injection (XYLOCAINE)Disp: Rfl: Prescriptions as of 07/11/2024 - DULoxetine (CYMBALTA) 60 mg capsule Take 60 mg by mouth two times a day. - haloperidol (HALDOL) 2 mg tablet Take 2 mg by mouth as needed. - buPROPion SR (WELLBUTRIN SR) 100 mg 12 hr tablet Take 100 mg by mouth once daily. - metroNIDAZOLE (FLAGYL) 500 mg tablet Take 1 tablet by mouth two times a day for 7 days. - Norethindrone, Contraceptive, (ORTHO MICRONOR) 0.35 mg tablet Take 1 tablet by mouth once daily. - cyclobenzaprine (FLEXERIL) 10 mg tablet Take 1 tablet by mouth at bedtime as needed for muscle spasm or pain. - ATIVAN 0.5 mg at bedtime as needed. Lorazepam - buPROPion (WELLBUTRIN) 75 mg tablet Take 100 mg by mouth once daily. - amphetamine-dextroamp hetamine (ADDERALL) 15 mg tablet Take 7 mg by mouth as needed. - MULTIVITAMIN ORAL Take by mouth once daily. Problem List As Of Date 07/11/2024 Noted Resolved Supervision of Normal First [Z34.00] 10/17/2005 2009 Generalized anxiety disorder [F41.1] 09/30/2016 Major depressive disorder in partial remission *09/30/2016 Morbid obesity due to excess calories (HCC) [E6*09/30/2016 ADHD (attention deficit hyperactivity disorder)*03/10/2018 Social anxiety disorder [F40.10] 03/10/2018 Dysthymia [F34.1] 03/10/2018 Chronic bilateral low back pain without sciatic*07/01/2018 Chronic pain of both knees [M25.561, M25.562, G*08/20/2020 12/18/2020 Autism spectrum disorder [F84.0] 04/10/2021 Chronic fatigue syndrome with fibromyalgia [G93*1996 Schizo-affective psychosis (HCC) [F25.9] 12/11/2023 Obsessive compulsive disorder [F42.9] (more content not included)... Normal [facility] Large Joint Arthro/Inj: bila teral knee jointson 07-11-2024 Desirae Zamudio PA-C 07/11/2024 11:18 AM Large Joint Arthro/Inj: bilateral knee joints 07/11/2024 11:17 AM The procedure site was prepped in the usual sterile fashion. Site: bilateral knee joints Medications (Right): 6 mg betamethasone acetate-betamethasone sodium phosphate 6 mg/mL Medications (Left): 6 mg betamethasone acetate-betamethasone sodium phosphate 6 mg/mL Anesthetics (Right): 5 mL lidocaine (PF) 10 mg/mL (1 %) Anesthetics (Left): 5 mL lidocaine (PF) 10 mg/mL (1 %) Outcome: Tolerated well, no immediate complications Post-injection instructions were reviewed with the patient and the patient voiced understanding of these instructions. Informed Consent Consent Obtained: Verbal Waterfall Protocol A moment to CARE was completed. SIGN IN Sign in communication not applicable due to emergent procedure. Personnel directly involved with the procedure wore the appropriate PPE. Special Equipment: N/A Patient/Surrogate Stated/Verified: Patient name, Date of , Relevant allergies and Intended procedure TIME OUT Relevant labs, photos, and/or imaging studies have been reviewed. Consent documented and matches the intended procedure. Correct side/site marked and visible. Medications required for procedure verified. No fire risk assessment and interventions applicable. No implant(s) inserted. SIGN OUT No specimen collected. No post-procedure POC communication to the patient's multidisciplinary team (including the bedside nurse for hospitalized patients) applicable. [facility] CNOVon 06-30-2024 CNOV Office Visit (CDISMN ) LYNDON BURROUGHS ([id number]) 1980 F Date Time Provider Department 06/30/24 12:30 PM [facility] GARCIA [facility] During your visit today, we recorded the following information about you: Fabby Garcia AUD 06/30/2024 3:32 PM Signed [facility] [place] [facility] Department Section of Audiology Vestibular Test Battery Report Name: Lyndon Burroughs [facility]#: [id number] Date of Service: 06/30/2024 Date of : 1980 Age: [age] year old Referred by: Merlene Mchugh PA-C And is a patient of Errol Luu MD Referred for: Evaluation of suspected change in hearing, tinnitus, or balance. Referral documented: In an order in [facility] Pretest Instructions: All pretest instructions were completed prior to testing: no alcohol, no medication for dizziness/motion sickness, no sedatives (sleep aids, tranquilizers, antihistamines), no eye makeup and only have a light meal prior to testing. Impressions and Recommendations OVERALL IMPRESSIONS: Essentially vestibular evaluation. Symmetrical and robust peripheral vestibular responses and normal central vestibular function. Low likelihood of active vestibular system involvement to account for symptoms. However, observed some subclinical left-beating nystagmus (2-4 d/s) during horizontal head-shake, left [place]-Hallpike and head roll left testing which could suggest a subtle asymmetry; non-localizing. It is uncertain if this would account for patient's reported symptoms of lightheadedness upon standing, flashing lights in vision, and seeing spots. Clinical correlation needed. The remainder of today's evaluation revealed the following: - Normal low and high frequency vestibulo-ocular reflex (VOR) function as evident by robust and symmetrical monothermal caloric responses and video head impulse testing. Essentially normal rotational chair testing, however, significantly reduced VOR at some - Ocular and cervical vestibular evoked myogenic potentials (VEMP) results are not consistent with superior semi-circular canal dehiscence (SSCD), otolith, vestibular nerve, and VEMP pathway involvement in both ears. - There were no clinically significant signs of pathophysiologic nystagmus provoked during gaze stability testing with fixation removed. - While there were no subjective or objective indications of Benign Paroxysmal Positional Vertigo, observed subclinical positional nystagmus. Positional nystagmus in isolation is of minor diagnostic utility. This finding has been observed in normal individuals across numerous studies (Agusto, 2020). - There were no indications of central vestibulo-ocular pathway involvement noted. Essentially normal oculomotor examination. - Normal observation of gait and transfers. RECOMMENDATIONS: - Continue medical follow up with Merlene Mchugh PA-C - Continue follow up with your neurologist regarding the above symptoms. - Consider referral to vestibular and balance rehabilitation therapy to improve balance confidence and reduce reported symptoms. - Pereira-Daroff exercises were provided with instructions to complete twice daily over the next 10 days to assist with subjective complaints noted during position changes. - Consider re-evaluation as medically indicated. - Consider maintaining a healthy sleep schedule in addition to diet, hydration, and exercise. The results and recommendations were explained to Marielle Burroughs and she expressed understanding of the information. History Present Illness The following history was obtained by way of Lyndon Burroughs's previous medical record, patient entered questionnaire, and direct patient interview: Marielle presents with dizziness described as room spinning, lightheadedness, feeling faint. She reported a history of vertigo, however, the last episode was around 1 year ago, described as room spinning dizziness when getting out of bed. This lasted hours in duration. Her typical symptoms do not last as long, but can occur spontaneously. She noted that standing up she will always gets a lightheadedness or feeling faint. She tested negative for POTS. Symptoms are provoked by driving for a long period of time, head movements, standing up quickly. Associated symptoms include nausea, pressure in both ears (world goes quiet for a second), seeing spots head thumping in the head and vision changes. Of note, Lyndon has a history of headaches, however they are not associated with dizziness nor occur at similar times/have similar triggers. Lyndon has not fallen two or more times in the past year or fallen once with with injury and denies a fear of falling. Lyndon is not currently using an ambulatory device. Please refer to summary of past medical history section for further details of presenting symptoms, signs and relevant past medical history. Symptom Ratin-2/10 today ( (more content not included)... Normal 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 Disc spaces are relatively well-maintained. No pedicle erosion or paraspinal abnormality is evident. IMPRESSION: Unremarkable thoracic spine. 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 CNOVon 06-16-2024 CNOV Office Visit (SPNMED ) MANJEETLYNDON Alvarez ([id number]) 1980 F Date Time Provider Department 06/16/24 3:40 PM MARIO OSBORNE SPNMED During your visit today, we recorded the following information about you: Pulse Blood pressure Weight Height 77/minute 126/84 127 kg 1.676 m Mario Osborne PA-C 06/16/2024 4:36 PM Signed [facility] [address] [place] [address] 06/16/2024 ASSESSMENT AND PLAN: Assessment : Encounter Diagnosis ICD-10-CM 1. Chronic midline thoracic back pain M54.6 XR THORACIC GENERAL 3V AP/LAT/SWIMMERS G89.29 CONSULT TO PHYSICAL THERAPY 2. 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 Burroughs is a pleasant 43-year-old female that returns to the office here today a week after her last visit for the low back. Now she is being seen today for thoracic symptoms in the mid and upper thoracic region that radiate upward to the neck and sometimes cause headaches. Unfortunately, she has longstanding fibromyalgia and has struggled over the years to keep symptoms under good control. She is doing quite a bit of walking and trying to lose some weight. She says she does about 7000 steps in a day and is trying to continue to ramp that upward as time goes on. She denies numbness, tingling, weakness in upper extremities. Her muscle relaxant has not seem to give her much help in the past for this. She takes daily Flexeril 10 mg. EXAM Highlights: Exam is essentially normal from a neurologic standpoint as noted below. She has full range of motion without deficit but does have pain mostly at the base of the neck with full motion in any direction There is pain on palpation over the musculature in the cervical thoracic junction IMAGING: We did review her prior cervical plain radiographs together. She does not appear to have any abnormal alignment or fracture or listhesis. Disc space heights all seem to be pretty open at every level on her March 2023 cervical flexion and extension views. SUMMARY/PLAN: I will go ahead and try to get some x-rays of the main area of her pain in the upper thoracic region and cervical region with AP, lateral, swimmers view of thoracic. She would just like to see how much degenerative spondylosis that she has She is planning a trip in the very near future to [place] and wants to do quite a bit of walking there. I would agree that this is a good idea for her to walk is much as she is able. She is to return here after PT and x-rays if symptoms do not calm down at all. Plan : DIAGNOSTIC TESTING: -X-ray views will be obtained to better evaluate bony structures. REFERAL FOR SERVICES: -Physical therapy will be instituted. ACTIVITY RECOMMENDATIONS: -The patient is encouraged to avoid bed rest and maintain normal activity. -The patient is encouraged to exercise regularly as tolerated. NUTRITION RECOMMENDATIONS: -The patient is carrying a significant amount of weight above an ideal BMI. We discussed how this impacts overall health and back pain. FOLLOW-UP: -The patient is instructed to return as needed. ADDITIONAL DISCUSSION: -We discussed the difference between hurt vs harm as it relates to chronic pain. This document has been created with the use of voice recognition technology. It may contain inaccuracies: (e.g. misspellings, inaccurate syntax or word sense) that have escaped review. Time spent: 40 minutes today with this patient visit. This includes [id number]-jc-[id number] time, review of chart records regarding conservative care history, spine-pertinent imaging, and communication/care coordination with referring provider, problem-specific history-taking and counseling/education regarding treatment options. cc: Mario Osborne [address] [place] [id number] Results of consultation to be transmitted via electronic medical record for those providers who practice within [facility] or with access to [employer] via [facility] Connect, or via letter. ##################### ##################### ##################### ######### CHIEF COMPLAINT: Patient is here for the neck pain, right shoulder, upper back, pain from the neck goes up to the base of the skull, and also to the eyes (mostly right side). Has this pain for years and it is getting worse, more frequent. Level of the pain is at 5/10. Pain wakes her up. 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 Normal [facility] CNOVon 06-09-2024 CNOV Office Visit (SPNMED ) LYNDON BURROUGHS ([id number]) 1980 F Date Time Provider Department 06/09/24 10:20 AM MARIO OSBORNE SPNMED During your visit today, we recorded the following information about you: Pulse Blood pressure Weight Height 83/minute 121/83 127.6 kg 1.676 m Mario Osborne PA-C 06/09/2024 11:20 AM Signed Mario Osborne PA-C [facility] [address] [address] 06/09/2024 ASSESSMENT AND PLAN: Assessment : Encounter Diagnosis ICD-10-CM 1. Primary osteoarthritis of both knees M17.0 CONSULT BARIATRIC/METABOLIC INSTITUTE CONSULT TO PHYSICAL THERAPY 2. Lumbosacral spondylosis without myelopathy M47.817 CONSULT BARIATRIC/METABOLIC INSTITUTE CONSULT TO PHYSICAL THERAPY 3. Hyperlordosis deformity of lumbar spine M40.56 4. Morbid obesity due to excess calories ([facility]) E66.01 Discussion: Ms. Burroughs is a 43-year-old female here for evaluation of her low back today. She has separate issues in the mid back and neck as well. She is pursuing disability and indicates that she would like to be able to work part-time again. She has described years of central low back pain that now radiates to the LEFT lateral hip on occasion. Main symptoms are in the lumbar region. She describes separate issues with middle and cervical spine and she will make a separate appointment for that in the future. She describes 2 or 3 family members that have EDS and she wonders if she may have the same EXAM Highlights: Normal mobilization, stance. Gait slightly waddles from [id number]-gb-ywwy and balance is normal. There is central low back pain on palpation but she has full motion without any severe pain reproduction. She appears to have normal reflexes, strength, sensation in lower extremities. Seated SLR's are negative bilaterally. IMAGING: We reviewed her x-rays in detail during today's visit. She does have primarily L5-S1 DDD and mild hyperlordosis that may contribute to posterior facet arthrosis L4 through S1. I do not see listhesis or fracture or instability. Hip joints appear essentially normal. We also reviewed her shoulder x-rays briefly because they showed some of the upper thoracic region and there does not appear to be severe abnormalities from a thoracic spine standpoint on those films. SUMMARY/PLAN: She will start with supervised PT and nonsurgical bariatric referral. We talked about how the body has all worked together to create some symptoms and problems. She also has bilateral knee OA and morbid obesity that likely leads to gait abnormalities using her back as accessory musculature to help her gait and this causes additional back strain and wear and tear. She will plan to follow-up at another visit to discuss cervical issues further. Plan : REFERAL FOR SERVICES: -Physical therapy will be instituted. -Referral to nonsurgical bariatric ACTIVITY RECOMMENDATIONS: -The patient is encouraged to avoid bed rest and maintain normal activity. -The patient is encouraged to exercise regularly as tolerated. NUTRITION RECOMMENDATIONS: -The patient is carrying a significant amount of weight above an ideal BMI. We discussed how this impacts overall health and back pain. FOLLOW-UP: -The patient is instructed to return as needed. This document has been created with the use of voice recognition technology. It may contain inaccuracies: (e.g. misspellings, inaccurate syntax or word sense) that have escaped review. Time spent: 50 minutes today with this patient visit. This includes [id number]-rk-[id number] time, review of chart records regarding conservative care history, spine-pertinent imaging, and communication/care coordination with referring provider, problem-specific history-taking and counseling/education regarding treatment options. cc: Desirae Zamudio [address] [place] [address] Fax: Results of consultation to be transmitted via electronic medical record for those providers who practice within [facility] or with access to [employer] via [facility] Connect, or via letter. ##################### ##################### ##################### ######### CHIEF COMPLAINT: Patient is here for the lower back pain, hips (left is worse), pain right above the knees. Has this pain for years and over the years pain is getting worse. Level of the pain is at 5/10. Has shooting pain in the upper legs. Walking and standing makes it more painful. When she bend down to pick something up, and stand up with that weight, her legs will go numb and weakness. 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 Normal [facility] CNOVon 05-20-2024 CNOV Office Visit (SPRTST ) LYNDON BURROUGHS ([id number]) 1980 F Date Time Provider Department 05/20/24 11:30 AM ROSIE RATLIFF SPRTST During your visit today, we recorded the following information about you: Rosie Raltiff PA-C 05/20/2024 11:35 AM Signed FOLLOW UP APPOINTMENT Chief Complaint:/Reason for Visit: Established patient; Scheduled follow up appointment for new or existing problem and/or post-surgical evaluation History of Present Illness: Lyndon Burroughs follows up today for her right shoulder. Here for repeat injection. Continues to get moderate relief. ROS: Constitutional: patient denies any recent fever or significant change in weight Cardiovascular: patient denies any chest pain at rest Respiratory: patient denies any shortness of breath or cough Gastrointestinal: patient denies any current abdominal discomfort Integumentary: patient denies any recent skin changes Musculoskeletal: as noted in the HPI Neurologic: as noted in the HPI Endocrine: patient denies a current diagnosis of diabetes Hematologic/Lymphatic : patient denies any easily bleeding, any recent infection and denies any recent observable lymph node enlargement Psychologic: negative for any recent depression or anxiety issues PAST MEDICAL HISTORY Diagnosis Date ASCUS with positive high risk HPV cervical 05/2017 Chlamydia 1998 [facility] Myopia, bilateral 12/23/2017 Obsessive-compulsive disorders Other specified anemias PMH - PAST MEDICAL HISTORY OF HIATAL HERNIA Psychosis (HCC) Dr. Rocha at [facility] Current Outpatient Medications: metroNIDAZOLE (FLAGYL) 500 mg tablet Norethindrone, Contraceptive, (ORTHO MICRONOR) 0.35 mg tablet cyclobenzaprine (FLEXERIL) 10 mg tablet DULoxetine (CYMBALTA) 30 mg capsule ATIVAN 0.5 mg buPROPion (WELLBUTRIN) 75 mg tablet amphetamine-dextroamp hetamine (ADDERALL) 15 mg tablet MULTIVITAMIN ORAL Problem List: reviewed and updated. Physical Exam: Constitutional: No acute distress, pleasant Resp: Non-labored breathing Vascular: No cyanosis Skin: No rashes noted Focused Musculoskeletal exam: General: Ambulates well; no other joint abnormalities noted. 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 Pulses: 2+ radial, ulnar; hands warm bilat, <2sec CR Compartments: soft and compressible Assessment: (M25.811) Impingement of right shoulder (primary encounter diagnosis) Plan/Medical Decision Making:The nature of the problem and all indicated treatment options available were discussed in detail with the patient. Test(s)/Imaging/Refer ral(s): None 2. Intervention: Continue conservative treatment and CSI 3. Follow-up: as needed All of Lyndon Burroughs questions were answered today. She expressed a clear understanding of our discussion and is in agreement with the outlined treatment plan Rosie Ratliff PA-C Large Joint Arthro/Inj: R subacromial bursa 05/20/2024 11:35 AM The procedure site was prepped in the usual sterile fashion. Site: R subacromial bursa Medications: 40 mg triamcinolone acetonide 40 mg/mL Anesthetics: 4 mL lidocaine (PF) 10 mg/mL (1 %) Outcome: Tolerated well, no immediate complications Post-injection instructions were reviewed with the patient and the patient voiced understanding of these instructions. Informed Consent Consent Obtained: Verbal Waterfall Protocol A moment to CARE was completed. SIGN IN Sign in communication not applicable due to emergent procedure. Personnel directly involved with the procedure wore the appropriate PPE. Special Equipment: N/A Patient/Surrogate Stated/Verified: Patient name, Date of , Relevant allergies and Intended procedure TIME OUT Relevant labs, photos, and/or imaging studies have been reviewed. Consent documented and matches the intended procedure. Correct side/site marked and visible. Medications required for procedure verified. No fire risk assessment and interventions applicable. No implant(s) inserted. SIGN OUT All instruments, equipment, possible retained foreign bodies accounted for. Allergies As of Date: 05/20/2024 Noted Allergy Reaction LATEX 2009 TOMATOES 2009 Date Reviewed: 05/20/2024 Reviewed by: Julia Chong MA - Fully Assessed Reason for Visit: Established Patient [175] Primary Visit Diagnosis:Impingement of right shoulder [M25.811] Order(s):Large Joint Arthro/Inj: R subacromial bursa [TYS399] Order #: [id number] [] lidocaine (PF) 10 mg/mL (1 %) 4 mL injection (XYLOCAINE)Disp: Rfl: [] triamcinolone acetonide 40 mg injection (KeNALog 40)Disp: Rfl: Prescriptions as of 05/20/2024 - metroNIDAZOLE (FLAGYL) 500 mg tablet Take 1 tablet by mouth two times a day for 7 days. (more content not included)... Normal [facility] Large Joint Arthro/Inj: R zimmerman bacromial bursaon 05-20-2024 Rosie Ratliff PA-C 05/20/2024 11:35 AM Large Joint Arthro/Inj: R subacromial bursa 05/20/2024 11:35 AM The procedure site was prepped in the usual sterile fashion. Site: R subacromial bursa Medications: 40 mg triamcinolone acetonide 40 mg/mL Anesthetics: 4 mL lidocaine (PF) 10 mg/mL (1 %) Outcome: Tolerated well, no immediate complications Post-injection instructions were reviewed with the patient and the patient voiced understanding of these instructions. Informed Consent Consent Obtained: Verbal Waterfall Protocol A moment to CARE was completed. SIGN IN Sign in communication not applicable due to emergent procedure. Personnel directly involved with the procedure wore the appropriate PPE. Special Equipment: N/A Patient/Surrogate Stated/Verified: Patient name, Date of , Relevant allergies and Intended procedure TIME OUT Relevant labs, photos, and/or imaging studies have been reviewed. Consent documented and matches the intended procedure. Correct side/site marked and visible. Medications required for procedure verified. No fire risk assessment and interventions applicable. No implant(s) inserted. SIGN OUT All instruments, equipment, possible retained foreign bodies accounted for. [facility] BACTERIAL VAGINOSIS NAATon 0 05-19-2024 Lactobacillus crispatus+gasseri+venkata senii + Gardnerella vaginalis + Atopobium vaginae rRNA EMIL+probe Ql (Vag fld) Detected Abnormal Not detected [facility] Comment on above: Order Comment: Speci men Type: BLOOD SPECIMEN Ordering Facility: [facility] Address: [address] [place] [address] Performed By: #### 5 195-3, 30584-5, 71969-3 #### [facility] CLIA [id number] [address] [place] [address] [place] C. trachomatis+N. gonorrhoea e DNA EMIL+probe Ql (Unsp spec)on 05-19-2024 C. trachomatis rRNA EMIL+probe Ql (Unsp spec) Not detected Normal Not detected [facility] Comment on above: Order Comment: Speci men Type: BLOOD SPECIMEN Ordering Facility: [facility] Address: [address] [place] [address] Performed By: #### 5 195-3, 51042-5, 27321-8 #### [facility] CLIA [id number] [address] [place] [address] [place] N. gonorrhoeae rRNA EMIL+probe Ql (Unsp spec) Not detected Normal Not detected [facility] Comment on above: Order Comment: Speci men Type: BLOOD SPECIMEN Ordering Facility: [facility] Address: [address] [place] [address] Performed By: #### 5 195-3, 06271-8, 09515-1 #### [facility] CLIA [id number] [address] [place] [address] [place] JORDAN/TRICHOMONAS NAATon 0 05-19-2024 C. glabrata RNA EMIL+probe Ql (Vag fld) Not detected Normal Not detected [facility] Comment on above: Order Comment: Speci men Type: BLOOD SPECIMEN Ordering Facility: [facility] Address: [address] [place] [address] Performed By: #### 5 195-3, 10482-9, 97744-5 #### [facility] CLIA [id number] [address] [place] [address] [place] Jordan sp DNA EMIL+probe Ql (Vag fld) Detected Abnormal Not detected [facility] Comment on above: Order Comment: Speci men Type: BLOOD SPECIMEN Ordering Facility: [facility] Address: [address] [place] [address] Result Comment: The Jordan species group target includes C. albicans, C. tropicalis, C. parapsilosis, and C. dubliniensis. Performed By: #### 5 195-3, 45825-4, 69812-6 #### [facility] CLIA [id number] [address] [place] [address] [place] T. vaginalis DNA EMIL+probe Ql (Unsp spec) Not detected Normal Not detected [facility] Comment on above: Order Comment: Speci men Type: BLOOD SPECIMEN Ordering Facility: [facility] Address: [address] [place] [address] Performed By: #### 5 195-3, 32166-1, 23898-7 #### [facility] CLIA [id number] [address] [place] [address] [place] CNOVon 05-19-2024 CNOV Office Visit (OBGYWM ) LYNDON BURROUGHS ([id number]) 1980 F Date Time Provider Department 05/19/24 11:30 AM YAHAIRA DANIELS OBBRANDIE During your visit today, we recorded the following information about you: Blood pressure Weight Height Last Period 128/76 132.5 kg 1.676 m 05/06/24 Yahaira Daniels APRN.CN 05/19/2024 12:19 PM Signed Marielle is a 43 year old who presents for an annual gynecologic exam with complaints, vaginal itching and vulvar irritation. Recently stopped taking antipsychotic meds due to weight gain. Reports mood is stable at this time Still get period: Yes Bleeding amount bothersome: No Bleeding between periods: Yes Period symptoms: None Menopause symptoms: None Time with current partner: Partner 1 - 6 years, Partner 2 - 1 year Number of lifetime partners: 50 control frequency: Always HPV vaccine: No; HPV:negative Last pap smear: 2022- NORMAL History of abnormal pap: Yes, history of abnormal PAP smears Bothersome pelvic pain: No Last mammogram: last week OB History Gravida1 Para1 Term1 Preterm0 AB0 Living1 SAB0 IAB0 Ectopic0 Multiple0 Live Births1 Comment: 1 vaginal delivery Problem Relation Age of Onset Psychiatry Mother DEPRESSION,SUICIDAL IDEATION Cancer Mother cancer in the appendix Leukemia Mother Colon Cancer Mother 70 Appendix cancer Hypertension Father Heart Father [place] Psychiatry Father DEPRESSION, bipolar COPD Father smoked from age 12 other (CHF) Father Diabetes Sister Depression Sister other (HTN) Sister Depression Brother other (htn) Brother Diabetes Brother Bipolar disorder Brother Psychiatry Brother Schizoaffective Alcohol/Drug Maternal Grandmother ALCOHOLIC Alzheimer's Disease Maternal Grandmother Arthritis Maternal Grandmother Colon Cancer Maternal Grandmother Psychiatry Maternal Grandmother Alcohol/Drug Maternal Grandfather ALCOHOLIC Stroke Maternal Grandfather Alcohol/Drug Paternal Grandmother ALCOHOLIC Heart Paternal Grandmother CHF Alcohol/Drug Paternal Grandfather ALCOHOLIC Heart Paternal Grandfather [place] Stroke Paternal Grandfather Alzheimer's Disease Paternal Grandfather Diabetes Maternal Uncle Colon Cancer Maternal Uncle 70 Cancer Maternal Uncle pancreatic cancer Breast Cancer Paternal Aunt 50 - 60 Diabetes Paternal Aunt PAUNT X 5 Diabetes Paternal Uncle Autism Other Anxiety disorder Other Tourette syndrome Other Ovarian cancer Other 28 Malig Hyperthermia No Family History SOCIAL HISTORY Social History Tobacco Use Smoking status: Never Smokeless tobacco: Never Vaping Use Vaping status: Never Used Substance Use Topics Alcohol use: No Drug use: No REVIEW OF SYSTEMS Abdomen: No abdominal pain, nausea, vomiting, diarrhea, or constipation. Bladder: No dysuria, gross hematuria, urinary frequency, urinary urgency, or incontinence. Breast: No breast lumps, nipple d/c, overlying skin changes, redness or skin retraction. Allergies and current medication updated:Yes SENSITIVE EXAM: The sensitive examination was discussed with the Patient or Patient's Authorized Chemist Assistant. As applicable, any other physician, advance practice provider, medical student, or other health professional student that will be observing or involved in the sensitive examination for educational or training purposes was discussed with the Patient or Authorized Chemist Assistant. The Patient or Authorized Chemist Assistant has agreed to proceed with the sensitive examination. (Sensitive examination includes inspection and/or palpation of the breasts, pelvis, prostate and anorectal regions). EXAM: BP 128/76 Ht 5' 6 (1.68m) Wt 292 lb (132.5kg) LMP 05/06/2024 BMI 47.15 kg/(m2). GENERAL: pleasant, female in no apparent distress HEENT: Normocephalic and atraumatic NECK: Supple DERMATOLOGY: Normal and without lesions BREAST: deferred CHEST: Normal inspiratory effort ABDOMEN: soft, non-tender, and pannus large PELVIC: external genitalia normal, normal Bartholin's glands, urethra, Sobieski's glands, no vulvar lesions, no cervical lesions, good vaginal support, physiologic discharge present, normal appearing perineal body and perianal region BIMANUAL: uterus normal size, shape and consistency, no adnexal masses, non-tender, and no cervical motion tenderness RECTOVAGINAL: deferred. NEURO: alert and oriented x3,exam grossly non-focal EXTREMITIES: normal ASSESSMENT/PLAN: 1) Health maintenance: Pap/HPV up to date. Mammogram up to date . Colon cancer screening: up to date with screening Lipids/glucose: followed by PCP Vitamin D: followed by PCP 2) Contraception: Progestin - only contraceptives and vasectomy. Contraceptive options reviewed and informat (more content not included)... Normal [facility] HBV surface Ag Ser Qlon - HBV surface Ag Ql (S) Negative Normal Negative [facility] Comment on above: Order Comment: Speci men Type: BLOOD SPECIMEN Ordering Facility: [facility] Address: [address] [place] [address] Performed By: #### 5 195-3, 53574-2, 99501-3 #### [facility] CLIA [id number] [address] [place], [place] [address] [address] [place] HCV Ab Ser Qlon 05-19-2024 HCV Ab Ql (S) Negative Normal Negative [facility] Comment on above: Order Comment: Specroe ayers Type: BLOOD SPECIMEN Ordering Facility: [facility] Address: [address] [place] [address] Result Comment: The result suggests no evidence of infection with Hepatitis C virus. Should recent infection be suspected, repeat testing may be considered 4-6 weeks after this draw. Performed By: #### 5 195-3, 89397-4, 78558-4 #### [facility] CLIA [id number] [address] [place] [address] [place] HERPES SIMPLEX TYPE 1 AND 2 IGon 05-19-2024 HSV IGG 1 QUALITATIVE Negative Normal Negative [facility] Comment on above: Order Comment: Jamariroe ayers Type: BLOOD SPECIMEN Ordering Facility: [facility] Address: [address] [place] [address] Result Comment: No e vidence of past history of HSV-1 infection. Negative result cannot exclude HSV-1 infection if the specimen collected 3-4 weeks after a primary episode of HSV-1 infection. Early institution of antiviral agents may delay or abrogate specific humoral response. Performed By: #### 5 195-3, 63595-5, 90366-7 #### [facility] CLIA [id number] [address] [place] [address] [place] HSV IGG 2 QUALITATIVE Negative Normal Negative [facility] Comment on above: Order Comment: Jamariroe ayers Type: BLOOD SPECIMEN Ordering Facility: [facility] Address: [address] [place] [address] Result Comment: No e vidence of past history of HSV-2 infection. Negative result cannot exclude HSV-2 infection if the specimen collected 4-6 weeks after a primary episode of HSV-2 infection. Early institution of antiviral agents may delay or abrogate specific humoral response. Performed By: #### 5 195-3, 71178-7, 27553-7 #### [facility] CLIA [id number] [address] [place] [address] [place] HIV 1+2 Ab IA Qlon 04-10-202 5 HIV 1 and 2 Ab IA.rapid Nom (S/P/Bld) Normal [facility] Comment on above: Order Comment: Speci men Type: BLOOD SPECIMEN Ordering Facility: [facility] Address: [address] [place] [address] Result Comment: Test not indicated. Performed By: #### 5 195-3, 48471-4, 07909-3 #### [facility] CLIA [id number] [address] [place] [address] [place] HIV 1+2 Ab+HIV1 p24 Ag IA Ql Non-Reactive Normal Nonreactive [facility] Comment on above: Order Comment: Speci men Type: BLOOD SPECIMEN Ordering Facility: [facility] Address: [address] [place] [address] Performed By: #### 5 195-3, 78245-3, 55934-1 #### [facility] CLIA [id number] [address] [place] [address] [place] HIV immunoassay testing algorithm interpretation (S/P/Bld) [Interp] Normal [facility] Comment on above: Order Comment: Speci men Type: BLOOD SPECIMEN Ordering Facility: [facility] Address: [address] [place] [address] Result Comment: No e vidence of HIV-1 or HIV-2 infection. Should recent infection be suspected, repeat testing may be considered 2-3 weeks after this draw. [place] Rev. Code 3701.243(E): This information has been disclosed to you from confidential records protected from disclosure by state law. ???You shall make no further disclosure of this information without the specific, written, and informed release of the individual to whom it pertains or as otherwise permitted by state law. A general authorization for the release of medical or other information is not sufficient for the purpose of the release of HIV test results or diagnoses. Performed By: #### 5 195-3, 46143-2, 05755-4 #### [facility] CLIA [id number] [address] [place] [address] [place] Reagin and Treponema pallidu m IgG and IgM [Interp]on 05-19-2024 T. pallidum IgG+IgM IA Ql (S) Non-Reactive Normal Nonreactive [facility] Comment on above: Order Comment: Albaro ayers Type: BLOOD SPECIMEN Ordering Facility: [facility] Address: [address] [place] [address] Performed By: #### 5 195-3, 07387-9, 66956-3 #### [facility] CLIA [id number] [address] [place] [address] [place] Reagin+T pallidum IgG+IgM Se rPl-Impon 05-19-2024 Reagin and Treponema pallidum IgG and IgM [Interp] Cannot exclude recent Treponemal infection if specimen collected within 7-10 days after appearance of suspect lesions or 2-3 weeks after an exposure. Clinical correlation is required. Normal [facility] Comment on above: Order Comment: Albaro ayers Type: BLOOD SPECIMEN Ordering Facility: [facility] Address: [address] [place] [address] Performed By: #### 5 195-3, 84151-2, 88259-7 #### [facility] CLIA [id number] [address] [place] [address] [place] [facility] US BREAST LTD RTon 05-17 DOMINIK US BREAST LTD RT * * *Final Report* * * DATE OF EXAM: May 17 2024 11:32AM U 0594 - STEERads BREAST LTD RT / PROCEDURE REASON: Abnormal screening mammogram * * * * Physician Interpretation * * * * [address] [address] [place] [address] #[id number] - [facility] [employer] BREAST LTD RT HISTORY: 43 year-old patient seen for diagnostic evaluation of the finding(s) described on prior mammogram in the right breast. COMPARISON STUDIES: The present examination has been compared to prior imaging studies dated 07/03/2021 (ultrasound), 07/03/2021 (mammogram), 02/19/2022 (mammogram), 05/11/2023 (mammogram) and 05/10/2024 (mammogram). ULTRASOUND TECHNIQUE: Targeted ultrasound of the indicated area was performed. Greene scale images were saved. ULTRASOUND FINDINGS: There is an oval lesion with circumscribed margins measuring 0.6 x 0.6 x 0.4 cm in the right breast at 10 o'clock, 3 cm from the nipple. This likely represents a complicated cyst. IMPRESSION: The 0.6 x 0.6 x 0.4 cm oval lesion in the right breast at 10 o'clock, 3 cm from the nipple is probably benign. This likely represents a complicated cyst. Follow-up with diagnostic mammogram and ultrasound is recommended in 6 months. BI-RADS Category 3: Probably Benign Interpreting Radiologist: Artur Neves M.D. Electronically signed on: 05/17/2024 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: VENITA Transcribe Date/Time: May 17 2024 11:20A Dictated by : ARTUR NEVES MD This examination was interpreted and the report reviewed and electronically signed by: ARTUR NEVES MD on May 17 2024 1:05PM EST [id number] Normal [facility] US Breast - right limitedon 05-17-2024 IMPRESSION: The 0.6 x 0.6 x 0.4 cm oval lesion in the right breast at 10 o'clock, 3 cm from the nipple is probably benign. This likely represents a complicated cyst. Follow-up with diagnostic mammogram and ultrasound is recommended in 6 months. BI-RADS Category 3: Probably Benign Interpreting Radiologist: Artur Neves M.D. Electronically signed on: 05/17/2024 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: VENITA Transcriboston Date/Time: May 17 2024 11:20A Dictated by : ARTUR NEVES MD This examination was interpreted and the report reviewed and electronically signed by: ARTUR NEVES MD on May 17 2024 1:05PM EST DIVISION OF RADIOLOGY * * *Final Report* * * DATE OF EXAM: May 17 2024 11:32AM [facility] 0594 - DOMINIK US BREAST [facility] RT / PROCEDURE REASON: Abnormal screening mammogram * * * * Physician Interpretation * * * * [address] [address] #[id number] - [facility] [employer] BREAST [place] RT HISTORY: 43 year-old patient seen for diagnostic evaluation of the finding(s) described on prior mammogram in the right breast. COMPARISON STUDIES: The present examination has been compared to prior imaging studies dated 07/03/2021 (ultrasound), 07/03/2021 (mammogram), 02/19/2022 (mammogram), 05/11/2023 (mammogram) and 05/10/2024 (mammogram). ULTRASOUND TECHNIQUE: Targeted ultrasound of the indicated area was performed. Greene scale images were saved. ULTRASOUND FINDINGS: There is an oval lesion with circumscribed margins measuring 0.6 x 0.6 x 0.4 cm in the right breast at 10 o'clock, 3 cm from the nipple. This likely represents a complicated cyst. DIVISION OF RADIOLOGY Provider, [facility] - 05/17/2024 * * *Final Report* * * DATE OF EXAM: May 17 2024 11:32AM [facility] 0594 - [facility] [employer] RT / PROCEDURE REASON: Abnormal screening mammogram * * * * Physician Interpretation * * * * [facility] [address] [place] [address] #[id number] - [facility] [employer] RT HISTORY: 43 year-old patient seen for diagnostic evaluation of the finding(s) described on prior mammogram in the right breast. COMPARISON STUDIES: The present examination has been compared to prior imaging studies dated 07/03/2021 (ultrasound), 07/03/2021 (mammogram), 02/19/2022 (mammogram), 05/11/2023 (mammogram) and 05/10/2024 (mammogram). ULTRASOUND TECHNIQUE: Targeted ultrasound of the indicated area was performed. Greene scale images were saved. ULTRASOUND FINDINGS: There is an oval lesion with circumscribed margins measuring 0.6 x 0.6 x 0.4 cm in the right breast at 10 o'clock, 3 cm from the nipple. This likely represents a complicated cyst. IMPRESSION IMPRESSION: The 0.6 x 0.6 x 0.4 cm oval lesion in the right breast at 10 o'clock, 3 cm from the nipple is probably benign. This likely represents a complicated cyst. Follow-up with diagnostic mammogram and ultrasound is recommended in 6 months. BI-RADS Category 3: Probably Benign Interpreting Radiologist: Artur Neves M.D. Electronically signed on: 05/17/2024 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: VENITA Transcribe Date/Time: May 17 2024 11:20A Dictated by : ARTUR NEVES MD This examination was interpreted and the report reviewed and electronically signed by: ARTUR NEVES MD on May 17 2024 1:05PM EST [facility] Radiology Study observation (narrative) [facility] US Breast - right limitedOrd ered By: Ccf Provider on 05-17-2024 [facility] CNPNon 05-13-2024 CNPN Telephone (ANGIE) LYNDON BURROUGHS ([id number]) 1980 F Date Time Provider Department 05/13/24 YAHAIRA DANIELS During your visit today, we recorded the following information about you: Chata Rasheed RDMS 05/13/2024 11:51 AM Signed May we please have LTD right breast ultrasound orders placed for right callback. US Breast LTD Right We are not able to use the orders currently filed (US Breast complete Bilateral) Thank you very much! Yahaira Erazo APRN.CNM 05/13/2024 12:53 PM Signed Orders singed. Yahaira Daniels APRN.CNM Allergies As of Date: 05/13/2024 Noted Allergy Reaction LATEX 2009 TOMATOES 2009 Date Reviewed: 05/09/2024 Reviewed by: Seema Fofana MA - Fully Assessed Reason for Visit: Orders [681] Primary Visit Diagnosis:Abnormal screening mammogram [R92.8] Order(s):US BREAST LTD RIGHT [[id number]] Order #: [id number] FUTURE Prescriptions as of 05/13/2024 - Norethindrone, Contraceptive, (ORTHO MICRONOR) 0.35 mg tablet Take 1 tablet by mouth once daily. - cyclobenzaprine (FLEXERIL) 10 mg tablet Take 1 tablet by mouth at bedtime as needed for muscle spasm or pain. - DULoxetine (CYMBALTA) 30 mg capsule Take 60 mg by mouth once daily. - ATIVAN 0.5 mg - elderberry fruit (ELDERBERRY ORAL) Take by mouth. - buPROPion (WELLBUTRIN) 75 mg tablet Take 100 mg by mouth once daily. - amphetamine-dextroamp hetamine (ADDERALL) 15 mg tablet Take 7 mg by mouth as needed. - MULTIVITAMIN ORAL Take by mouth once daily. Problem List As Of Date 05/13/2024 Noted Resolved Supervision of Normal First [Z34.00] 10/17/2005 2009 Generalized anxiety disorder [F41.1] 09/30/2016 Major depressive disorder in partial remission *09/30/2016 Morbid obesity due to excess calories (HCC) [E6*09/30/2016 ADHD (attention deficit hyperactivity disorder)*03/10/2018 Social anxiety disorder [F40.10] 03/10/2018 Dysthymia [F34.1] 03/10/2018 Chronic bilateral low back pain without sciatic*07/01/2018 Chronic pain of both knees [M25.561, M25.562, G*08/20/2020 12/18/2020 Autism spectrum disorder [F84.0] 04/10/2021 Chronic fatigue syndrome with fibromyalgia [G93*1996 Schizo-affective psychosis (HCC) [F25.9] 12/11/2023 Obsessive compulsive disorder [F42.9] 11/21/2020 Vertigo [R42] 03/15/2024 Primary osteoarthritis of both knees [M17.0] 05/10/2024 Degeneration of intervertebral disc of lumbar r*05/12/2024 Impingement of right shoulder [M25.811] 05/12/2024 Encounter Status:Closed by YAHAIRA DANIELS on 05/13/[address] [facility] [id number] 05-12-2024 [id number] HNO ID: [id number] Author: BENNIE ANGEL PT Service: ? Author Type: Physical Therapist Type: [id number] Filed: 05/12/2024 11:34 Note Text: [facility] Rehabilitation [facility] Sports Therapy Physical Therapy Plan of Care Certification Patient Name: Lyndon Burroughs : 1980 [facility] #: [id number] Date: 05/12/2024 To: Rosie Ratliff PA-C From Therapist: Bennie Angel PT RE: Patient Certification/ Recertification Your review, approval and electronic signature are required in order to comply with Payor: [facility] MEDICAID / Plan: [facility] COMMUNITY PLAN MEDICAID [facility] / Product Type: Medicaid / regulations. The identified Physical Therapy PLAN OF CARE for the patient is as follows: M51.361 Degeneration of intervertebral disc of lumbar region with lower extremity pain (primary encounter diagnosis) M25.811 Impingement of right shoulder PLAN OF CARE: Assessment: Lyndon Burroughs presents with chief complaint of Chronic Low Back AND B Knee Pain as well as R Shoulder pain (started fall 2023) that interferes with stair negotiation, physical activities, walking, lifting, kneeling, sleeping, reaching behind back, reaching overhead, use hand with arm at shoulder level, weight bearing . The patient presents with impairments in ADL's, independence in exercise, overall function, patient reported outcome measures, posture, range of motion, strength, symptom management, and tissue tenderness. PROMIS? (Patient-Reported Outcomes Measurement Information System) scores were reviewed and identified as a rehabilitation concern. Prognosis for therapy is Fair due to: Prognosis may be improved by, chronic nature of impairments, limited tolerance to activity current objective clinical presentation. The patient will benefit from skilled therapy services to meet the goals established for this plan of care as noted below. Classification Pain Mechanism Classification: Nociceptive Low Back Pain Classification: Movement Control Goals for Episode of Care: established 05/12/24 Patient reported outcome of pain Interference will decrease T -score by a minimum of 5 points. Patient reported outcome of physical function will increase T-score by a minimum 5 points. [place] in home exercise program. Perform reaching overhead, across body and behind back with decreased report of symptoms/pain in 6-8 weeks. Perform standing / walking / stairs with decreased report of symptoms/pain in 6-8 weeks. Patient will improve 5 time sit to stand to demonstrate improvement in functional lower extremity strength. Patient will increase strength of trunk to 4+/5 to allow for return to prior functional status and perform ADLs. Increase strength of B lower extremity AND R upper extremity to 5/5 MMT for improved ADL/IADLs. Sleep through night without pain/symptoms. Patient Goals: Alleviate Pain. Time Frame for Goals and Treatment : 07/07/24 Planned Interventions, Frequency, and Duration: Current Frequency: 2x/week Duration: 4 weeks Total Number of Visits Planned: 8 Planned Treatment Interventions: Therapeutic exercise (03775), Neuromuscular re-education (76526), Manual therapy (00742), Therapeutic activities (01928), Self-senior care management (99170), Patient/Family/Caregi howard Education PLAN FOR NEXT VISIT: Review, correct and progress HEP. Tib-Fem Distraction for knee relief. Can trial low back traction. Short step ups as tolerated. Patient demonstrates good understanding of plan of care and treatment. The above goals and plan of care were discussed and agreed upon by patient/family. For further details regarding this patient refer to the Physical Therapy electronically documented visit dated 05/12/2024. Provider Attestation I have reviewed the treatment plan for Lyndon Burroughs, [facility]# [id number] for the period of 05/12/24 -- 06/24/24, established on 05/12/2024. Signature certifies the need for therapy services. Normal [facility] CNTHERAPYon 05-12-2024 CNTHERAPY OT/PT/Speech Visit (PTWS) LYNDON BURROUGHS ([id number]) 1980 F Date Time Provider Department 05/12/24 10:00 AM BENNIE ANGEL PTWS Date Time Provider Department Center 05/12/2024 10:00 AM [id number], COLIN PTDAVID Pineda Reason for Visit: PT Eval [747] Primary Visit Diagnosis:Degeneratio n of intervertebral disc of lumbar region with lower extremity pain [M51.361] Other Visit Diagnosis:Impingement of right shoulder [M25.811] Allergies As of Date: 05/12/2024 Noted Allergy Reaction LATEX 2009 TOMATOES 2009 Date Reviewed: 05/09/2024 Reviewed by: Seema Fofana MA - Fully Assessed Prescriptions as of 05/12/2024 - Norethindrone, Contraceptive, (ORTHO MICRONOR) 0.35 mg tablet Take 1 tablet by mouth once daily. - cyclobenzaprine (FLEXERIL) 10 mg tablet Take 1 tablet by mouth at bedtime as needed for muscle spasm or pain. - DULoxetine (CYMBALTA) 30 mg capsule Take 60 mg by mouth once daily. - ATIVAN 0.5 mg - elderberry fruit (ELDERBERRY ORAL) Take by mouth. - buPROPion (WELLBUTRIN) 75 mg tablet Take 100 mg by mouth once daily. - amphetamine-dextroamp hetamine (ADDERALL) 15 mg tablet Take 7 mg by mouth as needed. - MULTIVITAMIN ORAL Take by mouth once daily. Art Appraiser: Addendum Therapy (PT/OT/Speech/Resp) ID: [id number] 05/12/2024 10:51 AM Author: BENNIE ANGEL Signed by BENNIE ANGEL PT on 05/12/2024 at 10:51 AM * * * This document replaces document [id number] * * * Document text: Program_ID:[id number] Access Code: [email or web address] URL: [email or web address] Date: 05-12-2024 Prepared By: Bennie Angel Program Notes Exercises - Supine Transversus Abdominis Bracing - Hands on Ground - 2 x daily - 7 x weekly - 2-3 sets - 10 reps - Hooklying Single Knee to Chest Stretch - 2 x daily - 7 x weekly - sets - 3 reps - Supine Lower Trunk Rotation - 2 x daily - 7 x weekly - 2 sets - 10-15 reps - Supine Fig-4 Stretch. - 2 x daily - 7 x weekly - sets - 3 reps - Active Straight Leg Raise with Quad Set - 2 x daily - 7 x weekly - 3 sets - 8-10 reps - Standing Hip Abduction - 2 x daily - 7 x weekly - 2 sets - 10 reps ----- Therapy (PT/OT/Speech/Resp) ID: [id number] 05/12/2024 10:48 AM Author: BENNIE ANGEL Signed by BENNIE ANGEL PT on 05/12/2024 at 10:49 AM Document text: Program_ID:[id number] Access Code: [email or web address] URL: [email or web address] Date: 05-12-2024 Prepared By: Bennie Angel Program Notes Exercises - Sidelying Shoulder External Rotation - 2 x daily - 7 x weekly - 2 sets - 10 reps - Single Arm Scaption with Dumbbell - 2 x daily - 7 x weekly - 2 sets - 8-10 reps - Seated Scapular Retraction - 2 x daily - 7 x weekly - 2 sets - 10 reps ----- Normal [facility] THERAPY NTon 05-12-2024 THERAPY NT HNO ID: [id number] Author: BENNIE ANGEL PT Service: ? Author Type: Physical Therapist Type: Therapy (PT/OT/Speech/Resp) Filed: 05/12/2024 10:51 Note Text: Program_ID:[id number] Access Code: [email or web address] URL: [email or web address] Date: 05-12-2024 Prepared By: Bennie Angel Program Notes Exercises - Supine Transversus Abdominis Bracing - Hands on Ground - 2 x daily - 7 x weekly - 2-3 sets - 10 reps - Hooklying Single Knee to Chest Stretch - 2 x daily - 7 x weekly - sets - 3 reps - Supine Lower Trunk Rotation - 2 x daily - 7 x weekly - 2 sets - 10-15 reps - Supine Fig-4 Stretch. - 2 x daily - 7 x weekly - sets - 3 reps - Active Straight Leg Raise with Quad Set - 2 x daily - 7 x weekly - 3 sets - 8-10 reps - Standing Hip Abduction - 2 x daily - 7 x weekly - 2 sets - 10 reps [address] [facility] THERAPY NT HNO ID: [id number] Author: BENNIE ANGEL, PT Service: ? Author Type: Physical Therapist Type: Therapy (PT/OT/Speech/Resp) Filed: 05/12/2024 10:49 Note Text: Program_ID:[id number] Access Code: [email or web address] URL: [email or web address] Date: 05-12-2024 Prepared By: Bennie Angel Program Notes Exercises - Sidelying Shoulder External Rotation - 2 x daily - 7 x weekly - 2 sets - 10 reps - Single Arm Scaption with Dumbbell - 2 x daily - 7 x weekly - 2 sets - 8-10 reps - Seated Scapular Retraction - 2 x daily - 7 x weekly - 2 sets - [address] [facility] DOMINIK SCREENING W TOMOon 05-10 DOMINIK SCREENING W JUVE * * *Final Report* * * DATE OF EXAM: May 10 2024 1:10PM [facility] 0582 - DOMINIK SCREENING W JUVE / PROCEDURE REASON: Encounter for other screening for malignant neoplasm of breast * * * * Physician Interpretation * * * * RESULT: [address] [address] [place] [address] #[id number] - DOMINIK SCREENING W JUVE HISTORY: 43 year-old patient seen for screening. Patient is asymptomatic in both breasts. Patient states no personal history of breast cancer. The patient has a family history of breast cancer. COMPARISON STUDIES: The present examination has been compared to prior imaging studies dated 06/05/2021 (mammogram), 07/03/2021 (mammogram), 07/03/2021 (ultrasound), 02/19/2022 (mammogram) and 05/11/2023 (mammogram). MAMMOGRAM TECHNIQUE: The study was acquired using full field digital technology and interpreted from soft copy. Digital Breast Tomosynthesis (DBT) images were obtained and used to assist in the interpretation of this examination. MAMMOGRAM FINDINGS: There are scattered areas of fibroglandular density. There is a focal asymmetry in the upper outer quadrant of the right breast. No suspicious masses, calcifications or other abnormalities are seen in the left breast. IMPRESSION: The focal asymmetry in the upper outer quadrant of the right breast requires additional evaluation. Diagnostic ultrasound is recommended. BI-RADS Category 0: Incomplete: Needs Additional Imaging Evaluation RISK: Based on the Tyrer-Cuzick (TC) risk assessment model, this patient has a 10.4% lifetime risk of developing breast cancer, meaning they are at average risk for developing breast cancer. However, this is only an estimate based on available history provided on the patient's questionnaire. We encourage all patients to talk with their providers about these results, further recommendations for managing breast health, and appropriate supplemental screening options if the patient has dense breast tissue. Interpreting Radiologist: Jocelyn Cobos M.D. Electronically signed on: 05/11/2024 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: VENITA Transcriboston Date/Time: May 10 2024 12:56P Dictated by: JOCELYN COBOS MD This examination was interpreted and the report reviewed and electronically signed by: JOCELYN COBOS MD on May 11 2024 1:12PM EST [id number] Normal [facility] CNOVon 05-09-2024 CNOV Office Visit (ORTHWS ) LYNDON BURROUGHS ([id number]) 1980 F Date Time Provider Department 3/31/25 10:30 AM DESIRAE ZAMUDIO During your visit today, we recorded the following information about you: Seema Fofana MA 05/09/2024 11:59 AM Signed Patient presents with: Left Knee - Established Patient, Knee Pain Right Knee - Established Patient, Knee Pain: 5 months post visit OA bilateral knees with injections given AMB ROOMING INTAKE FLOWSHEET DATA Pain Pain Level: 5 Pain Location: (Bilateral knees) Description: Dull, Aching Duration Amount of Time: 3 Duration Units: Months Frequency: Continuous Intervention/Comfort measure: Medication Patient here for follow up bilateral knee pain. States injections have helped. She would like injections today. Taking Tylenol and Ibuprofen for the pain. Has been applying tiger balm and feels it helps the most. New x-rays done on 05/09/24. Desirae Zamudio PA-C 05/09/2024 11:59 AM Signed Desirae Zamudio PA-C Department of Orthopaedics Orthopaedics [address] [place] [address] Dept: [phone] Dept May 09, 2024 CHIEF COMPLAINT: Established Patient and Knee Pain of the Left Knee and Established Patient and Knee Pain of the Right Knee (5 months post visit OA bilateral knees with injections given) Ms. Lyndon Burroughs is a 43 year old female who presents with ongoing pain in both of her knees. Pain is a 5 out of 10 aching that is worse with activity. She has not upcoming trip to [place] and would like to discuss corticosteroid injections prior. She has had corticosteroid injections in the past which have been of benefit. She is a bit discouraged as she has gained some weight after some adjustments were made to her mental health medications. She admits that her diet is not the best, she does have a dietary consult plan for early May. She was walking quite a bit in the past but has kind of gotten out of her routine. She is also tried oral diclofenac, she finds that the Tylenol and ibuprofen [id number] are much more effective for her. She also complains of pain across her low back, the pain in her low back does bother her when she is standing or walking for long periods of time. She also notes that direct pressure over the area, like if her cat walks across her back, is uncomfortable. 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 I would like to get her into some PT for her low back as well. Advised her to proceed with dietary consult as planned. Will continue to monitor patient for Degeneration of intervertebral disc of lumbar region with lower extremity pain Primary osteoarthritis of both knees (primary encounter diagnosis), patient to schedule visit as per follow up discussed. Ms. Lyndon Burroughs was advised as to contrast therapies and/or to take analgesics/anti-infla mmatories as needed and all contraindications were reviewed. OBJECTIVE: Ms. Lyndon Burroughs is a pleasant 43 year old in no apparent distress. Gen:LMP 03/06/2024 nl development, obese, no deformities ENT: Normocephalic, normal hearing, moist mucosa CV: Pulses:DP/PT= 2+ and symmetric, capillary refill < 2 secs, no peripheral edema/varicosities Skin: no rash, bruising or lesions. Good turgor. Psych: cooperative and appropriate, alert and oriented x 3, good mood and affect. Musculoskeletal: KNEE EXAM: Left: Alignment: Neutral Range of motion is lacking a few degrees secondary to tight hamstrings degrees in extension and 120 degrees of flexion. Extension La degrees Pain with ROM: No Effusion: None Tender to the palpation of Patellar tendon and Medial joint line Pain with patellar compression: Yes Stability: Anterior/Posterior stable and Varus/Valgus stable Hip Exam: flexion to 100+ degrees, full extension, internal/external rotation adequate and no pain with log roll Neurovascular Status: Sensation Intact, Moves foot and ankle up AND down and 2+ dorsalis pedis Right: Alignment: Valgus deformity, Correctable Range of motion is lacking a few degrees secondary to tight hamstrings degrees in extension and 120 degrees of flexion. Extension La degrees Pain with ROM: Yes Effusion: Mild Tender to the palpation of Patellar tendon and Medial femoral condyle Pain with patellar compression: Yes Stability: Anterior/Posterior stable and Varus/Valgus stable Hip Exam: flexion to 100+ degrees, full extension, internal/external rotation adequate and no pain with log roll Neurovascular Status: Sensation Intact, Moves foot and ankle up AND down and 2+ dorsalis pedis Imaging: (more content not included)... Normal [facility] XR KNEE 4V AP/PA/LAT/MERCH B ILon 04-29-2024 XR KNEE 4V AP/PA/LAT/MERCH JEANMARIE * * *Final Report* * * DATE OF EXAM: Apr 29 2024 12:43PM WOX [id number] - XR KNEE 4V AP/PA/LAT/MERCH JEANMARIE / PROCEDURE REASON: multiple diagnoses * * * * Physician Interpretation * * * * EXAMINATION / TECHNIQUE: XR KNEE 4V AP/PA/LAT/MERCH JEANMARIE HISTORY: chronic bilateral knee pain. Pain in both knees, unspecified chronicity Pain in both knees, unspecified chronicity COMPARISON: 03/27/2023. RESULT: No acute fracture or dislocation in either knee. Severe bilateral medial compartment osteoarthritis. No large joint effusion in either knee. IMPRESSION: Severe bilateral medial compartment osteoarthritis. 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 ANES POSTPROC EVALon 025 ANES POSTPROC EVAL HNO ID: [id number] Author: HEATHER LEAL MD Service: ? Author Type: Anesthesiologist Type: Anesthesia Postprocedure Evaluation Filed: 03/30/2024 14:21 Note Text: POST ANESTHESIA EVALUATION NOTE : 1980 Procedure Summary Date: 03/30/24 Room / Location: [facility] Endoscopy Anesthesia Start: 910 Anesthesia Stop: 936 Procedure: COLONOSCOPY SCREENING Diagnosis: Special screening for malignant neoplasms, colon (Screening for colorectal malignant neoplasm) Scheduled Providers: Seema Guillory MD; Shannan Dasilva APRN.DIRECTOR WORKERS COMPENSATION; Heather Leal MD Responsible Provider: Heather Leal MD Anesthesia Type: MAC ASA Status: 3 Anesthesia Type: MAC Last Vitals Vitals Value Taken Time BP 148/92 03/30/24 0955 Temp 36.7 ?C (98.1 ?F) 03/30/24 0935 Pulse 86 03/30/24 0955 Resp 16 03/30/24 0955 SpO2 98 % 03/30/24 0955 Post Anesthesia Patient Status Patient Evaluation: bedside. Anticipated Disposition: phase 2 then home. Neurological Status: aware and responsive. Pulmonary Status: breathing comfortably on room air Airway Control: returned to baseline unsupported. Cardiovascular Status: stable. Pain Management: clinically adequate Postoperative Hydration: acceptable. Intraoperative Events: no significant anesthesia events Post Operative Nausea/Vomiting Status: no significant post operative nausea or vomiting Recommendation: continue current plan of care. Anesthesia Observations No notable events were associated with this procedure. Documented by Shannan Dasilva APRN.DIRECTOR WORKERS COMPENSATION 03/30/2024 9:37 AM EST SIGNATURE: Heather Leal MD PATIENT NAME: Lyndon Burroughs DATE: March 30, 2024 TIME: 2:19 PM CSN: [id number] Normal [facility] ANES PRE-OPon 03-30-2024 ANES PRE-OP HNO ID: [id number] Author: HEATHER LEAL MD Service: ? Author Type: Anesthesiologist Type: Anesthesia Preprocedure Evaluation Filed: 03/30/2024 09:11 Note Text: ANESTHESIOLOGY DAY OF SURGERY NOTE : 1980 Procedure Information Date/Time: 03/30/24914 Scheduled providers: Seema Guillory MD; Shannan Dasilva APRN.DIRECTOR WORKERS COMPENSATION; Heather Leal MD Procedure: COLONOSCOPY SCREENING Location: [facility] Endoscopy Estimated body mass index is 45.52 kg/m? as calculated from the following: Height as of 03/11/24: 167.6 cm (5' 6). Weight as of 03/11/24: 127.9 kg (282 lb). Most recent hematocrit and potassium results: Hematocrit 45.6 11/26/2023 Potassium 4.9 12/03/2023 Relevant Problems No relevant active problems I - PHYSICAL EVALUATION AIRWAY Patient intubated: No. Tracheostomy tube not present Mallampati: II. TM distance: >3 FB. Neck ROM: full ROM without neurological symptoms. Mouth opening: adequate. Short neck: no. Thick neck: no DENTAL Dental findings: teeth intact. Additional exam findings: yes. CARDIOVASCULAR Rhythm: regular Rate: normal PULMONARY Breath sounds clear to auscultation. II - ANESTHESIA PLAN ASA Score: 3 Anesthetic Plan: MAC The patient is not a current smoker. NPO Status: adequate Beta Kevin Monitoring Plan Monitoring plan: standard ASA. Post Procedure Analgesic Plan Informed Consent Anesthetic risks, benefits, alternatives, personnel and consent discussed: yes. Patient / Responsible Green Party agrees to proceed: yes Patient / Surrogate agrees to blood products: Yes DNR status not reviewed with patient and/or family prior to surgery. Significant changes in the patient condition since the History and Physical, not otherwise documented in primary service progress note: no. Potential Anesthesia issues that may suggest increased risk of complications or contraindication to planned procedure: none. Vitals Value Taken Time BP 171/94 03/30/24804 Pulse Resp 20 03/30/24804 Temp 36.1 ?C (97 ?F) 03/30/24804 SpO2 98 % 03/30/24804 Outpatient Medications as of 03/30/2024 Medication Sig DULoxetine (CYMBALTA) 30 mg capsule Take 60 mg by mouth once daily. Norethindrone, Contraceptive, (ORTHO MICRONOR) 0.35 mg tablet Take 1 tablet by mouth once daily. buPROPion (WELLBUTRIN) 75 mg tablet Take 100 mg by mouth once daily. cyclobenzaprine (FLEXERIL) 10 mg tablet Take 1 tablet by mouth at bedtime as needed for muscle spasm or pain. ATIVAN 0.5 mg elderberry fruit (ELDERBERRY ORAL) Take by mouth. amphetamine-dextroamp hetamine (ADDERALL) 15 mg tablet Take 7 mg by mouth as needed. MULTIVITAMIN ORAL Take by mouth once daily. Facility-Administered Medications as of 03/30/2024 Medication Dose Route Frequency lidocaine (PF) 10 mg/mL (1 %) 1-2 mg injection (XYLOCAINE) 0.1-0.2 mL INTRADERMAL PRN lactated ringers iv infusion 30 mL/hr INTRAVENOUS CONTINUOUS I have interviewed and examined the patient. I have reviewed the medical record and/or the pre-anesthesia evaluation, pertinent labs, and test results. This contains updated information obtained within 48 hours of Surgery/Procedure. SIGNATURE: Heather Leal MD PATIENT NAME: Lyndon Burroughs DATE: March 30, 2024 TIME: 9:11 AM CSN: [id number] Normal [facility] Colonoscopyon 03-30-2024 Colonoscopy [facility] Gastrointestinal Endoscopy Patient Name: Lyndon Burroughs Procedure Date: 03/30/2024 8:52 AM Date of : 1980 Admit Type: Outpatient Age: 43 Room: [facility] Gender: Female Note Status: Finalized Attending MD: Seema Guillory MD, [id number] Procedure: Colonoscopy Indications: Screening for colorectal malignant neoplasm Providers: Seema Guillory MD Patient Profile: Refer to note in patient chart for documentation of history and physical. Last Colonoscopy: more than 10 years ago. Referring Physician: Seema Guillory MD (Referring MD) Medicines: See the Anesthesia note for documentation of the administered medications Complications: No immediate complications. Requesting Provider: Procedure: Pre-Anesthesia Assessment: - Monitored anesthesia care under the supervision of a DIRECTOR WORKERS COMPENSATION was determined to be medically necessary for this procedure based on review of the patient's medical history, medications, and prior anesthesia history. After I obtained informed consent, the scope was passed under direct vision. Throughout the procedure, the patient's blood pressure, pulse, and oxygen saturations were monitored continuously. The Colonoscope was introduced through the anus and advanced to the cecum, identified by the appendiceal orifice, ileocecal valve and palpation. The colonoscopy was performed without difficulty. The patient tolerated the procedure well. The quality of the bowel preparation was adequate to identify polyps greater than 5 mm in size. The appendiceal orifice and the rectum were photographed. Scope Withdrawal Time: 0 hours 8 minutes 31 seconds Moderate Sedation: MAC anesthesia was administered by the anesthesia team. Total Procedure Duration: 0 hours 12 minutes 28 seconds Findings: The perianal and digital rectal examinations were normal. Non-bleeding internal hemorrhoids were found. A 2 to 4 mm polyp was found in the transverse colon. The polyp was sessile. The polyp was removed with a cold snare. Resection and retrieval were complete. Verification of patient identification for the specimen was done by the nurse. Estimated blood loss was minimal. Impression: - Non-bleeding internal hemorrhoids. - One 2 to 4 mm polyp in the transverse colon, removed with a cold snare. Resected and retrieved. Recommendation: - Discharge patient to home (ambulatory). - Resume previous diet. - Continue present medications. - Await pathology results. - - Follow up with Kelli Otero NP, may be via televisit for discussion of pathology results and determination of timing of future endoscopies - Patient has a contact number available for emergencies. The signs and symptoms of potential delayed complications were discussed with the patient. Return to normal activities tomorrow. Written discharge instructions were provided to the patient. - Repeat colonoscopy is recommended for surveillance. The colonoscopy date will be determined based on pathology results from today's exam and current guidelines. Procedure Code(s): --- Professional --- 07527, Colonoscopy, flexible; with removal of tumor(s), polyp(s), or other lesion(s) by snare technique Diagnosis Code(s): --- Professional --- D12.3, Benign neoplasm of transverse colon (hepatic flexure or splenic flexure) K64.8, Other hemorrhoids Z12.11, Encounter for screening for malignant neoplasm of colon CPT copyright 2020 [employer] [place] [employer]. All rights reserved. The codes documented in this report are preliminary and upon broadcast journalist review may be revised to meet current compliance requirements. Attending Participation: I personally performed the entire procedure. Scope In: 9:16:10 AM Scope Out: 9:28:38 AM MD Seema Pina MD 03/30/2024 9:32:33 AM This report has been signed electronically by Seema Guillory MD Number of Addenda: 0 Note Initiated On: 03/30/2024 8:52 AM Estimated Blood Loss: Estimated blood loss was minimal. Normal [facility] Colonoscopy Study observatio non 03-30-2024 [facility] Gastrointestinal Endoscopy Patient Name: Lyndon Burroughs Procedure Date: 03/30/2024 8:52 AM Date of : 1980 Admit Type: Outpatient Age: 43 Room: [facility] Gender: Female Note Status: Finalized Attending MD: Seema Guillory MD, [id number] Procedure: Colonoscopy Indications: Screening for colorectal malignant neoplasm Providers: Seema Guillory MD Patient Profile: Refer to note in patient chart for documentation of history and physical. Last Colonoscopy: more than 10 years ago. Referring Physician: Seema Guillory MD (Referring MD) Medicines: See the Anesthesia note for documentation of the administered medications Complications: No immediate complications. Requesting Provider: Procedure: Pre-Anesthesia Assessment: - Monitored anesthesia care under the supervision of a DIRECTOR WORKERS COMPENSATION was determined to be medically necessary for this procedure based on review of the patient's medical history, medications, and prior anesthesia history. After I obtained informed consent, the scope was passed under direct vision. Throughout the procedure, the patient's blood pressure, pulse, and oxygen saturations were monitored continuously. The Colonoscope was introduced through the anus and advanced to the cecum, identified by the appendiceal orifice, ileocecal valve and palpation. The colonoscopy was performed without difficulty. The patient tolerated the procedure well. The quality of the bowel preparation was adequate to identify polyps greater than 5 mm in size. The appendiceal orifice and the rectum were photographed. Scope Withdrawal Time: 0 hours 8 minutes 31 seconds Moderate Sedation: MAC anesthesia was administered by the anesthesia team. Total Procedure Duration: 0 hours 12 minutes 28 seconds Findings: The perianal and digital rectal examinations were normal. Non-bleeding internal hemorrhoids were found. A 2 to 4 mm polyp was found in the transverse colon. The polyp was sessile. The polyp was removed with a cold snare. Resection and retrieval were complete. Verification of patient identification for the specimen was done by the nurse. Estimated blood loss was minimal. Impression: - Non-bleeding internal hemorrhoids. - One 2 to 4 mm polyp in the transverse colon, removed with a cold snare. Resected and retrieved. Recommendation: - Discharge patient to home (ambulatory). - Resume previous diet. - Continue present medications. - Await pathology results. - - Follow up with Kelli Otero NP, may be via televisit for discussion of pathology results and determination of timing of future endoscopies - Patient has a contact number available for emergencies. The signs and symptoms of potential delayed complications were discussed with the patient. Return to normal activities tomorrow. Written discharge instructions were provided to the patient. - Repeat colonoscopy is recommended for surveillance. The colonoscopy date will be determined based on pathology results from today's exam and current guidelines. Procedure Code(s): --- Professional --- 98415, Colonoscopy, flexible; with removal of tumor(s), polyp(s), or other lesion(s) by snare technique Diagnosis Code(s): --- Professional --- D12.3, Benign neoplasm of transverse colon (hepatic flexure or splenic flexure) K64.8, Other hemorrhoids Z12.11, Encounter for screening for malignant neoplasm of colon CPT copyright 2020 [employer] [place] [employer]. All rights reserved. The codes documented in this report are preliminary and upon broadcast journalist review may be revised to meet current compliance requirements. Attending Participation: I personally performed the entire procedure. Scope In: 9:16:10 AM Scope Out: 9:28:38 AM (more content not included)... PROVATION [facility] Radiology Study observation (narrative) [facility] Pathology biopsy report Eddie (Tiss)on 03-30-2024 CASE REPORT Normal [facility] Comment on above: Order Comment: Speci men Type: TISSUE SPECIMEN Ordering Facility: [facility] Address: [address] [place] [address] Result Comment: Surg [facility] Pathology Report Case: [id number] Authorizing Provider: Seema Guillory MD Collected: 03/30/2024 09:22 AM Ordering Location: [facility] Endoscopy Received: 03/30/2024 10:29 AM Pathologist: Enma Fonseca MD Specimen: Colon, Transverse, Polyp Performed By: #### 6 6121-5 #### [facility] CLIA [id number] [address] [place] [address] LAB CLIA [id number] [address] [place] [address] FINAL DIAGNOSIS Normal [facility] Comment on above: Order Comment: Speci men Type: TISSUE SPECIMEN Ordering Facility: [facility] Address: [address] [place] [address] Result Comment: A. C olon, transverse polyp, biopsy: - Hyperplastic polyp. at 0842 EST Performed By: #### 6 6121-5 #### [facility] CLIA [id number] [address] [place] [address] STATES OF [facility] CLIA [id number] [address] [place] [address] OF [facility] FINAL PERFORMING LAB Normal [facility] Comment on above: Order Comment: Speci men Type: TISSUE SPECIMEN Ordering Facility: [facility] Address: [address] [place] [address] Result Comment: Diag nostic interpretation performed at: [facility], [id number] [place] [address] CLIA# [id number] Vacuum Cleaner Assembler: Enma Fonseca MD Performed By: #### 6 6121-5 #### [facility] CLIA [id number] [place] [address] [place] [facility] CLIA [id number] [address] [place] [address] STATES OF [place] [facility] Normal [facility] Comment on above: Order Comment: Speci men Type: TISSUE SPECIMEN Ordering Facility: [facility] Address: [address] [place] [address] Result Comment: Sarah lou, Transverse, Polyp Received in formalin is a pink polypoid segment of tissue measuring 1.6 x 0.3 x 0.3 cm. No stalk is noted. The apparent line of resection is noted. The specimen is not sectioned. Totally submitted in one cassette. CL March 30, 2024 3:13 PM Gross examination performed at [facility], [address] [place] [address] Performed By: #### 6 6121-5 #### [facility] CLIA [id number] [address] [place] [address] STATES OF [facility] CLIA [id number] [address] [place] [address] [place] OF [place] HISTORY PHYSICALon HISTORY PHYSICAL HNO ID: [id number] Author: DOLLY HASKINS APRN.CHROME CLEANER Service: ? Author Type: Nurse Practitioner Type: H&P Filed: 03/15/2024 15:22 Note Text: Center for Perioperative Medicine Pre-Anesthesia Consultation Clinic HISTORY AND PHYSICAL EXAMINATION SERVICE DATE: 03/11/2024 SERVICE TIME: 3:21 PM PRIMARY CARE PHYSICIAN: Errol Luu MD Assessment Patient has the following medical conditions which may affect karyn-operative course: Morbid obesity due to excess calories (HCC) Assessment: Body mass index is 45.52 kg/m?. Autism spectrum disorder Assessment: high functioning Schizo-affective psychosis (HCC) Assessment: following psych, stable on rx per pt Obsessive compulsive disorder Assessment: stable on rx per pt Chronic fatigue syndrome with fibromyalgia Assessment: controlled on rx and as needed Chronic bilateral low back pain without sciatica Assessment: controlled on rx and as needed Vertigo Assessment: recently evaluated by ENT and neurology 01/06/2024 Merlene Mchugh PA-C Assessment and Plan: (R42) Vertigo (primary encounter diagnosis) (H93.13) Tinnitus, bilateral (R42) Dizziness (H93.8X3) Sensation of fullness in both ears ~audiogram demonstrates normal hearing and normal middle ear function ~discussed masking and distraction for tinnitus. Does not qualify for Tinnitus Management Clinic due to medicaid. Referral submitted for [facility] for tinnitus ~referral to Vestibular Rehab and Vestibular Test Battery - I will MyChart with results ~follow up with me as needed HPI: Lyndon is a 43 year old who reports vertigo and tinnitus. Tinnitus started 10-15 years ago. Hears it primarily when it's quiet in both ears. Bothers her quite a bit and struggles despite use of background noises. Denies hearing loss, otalgia, otorrhea, h/o ear surgeries, or tubes. Known cervicalgia. Known bruxism, unable to tolerate bite guard. Vertigo started about 3 years ago. Occurs for a few seconds after turning her head to the left or right or rolling over in bed. She tried Albert/Pereira Daroff Maneuvers at home which helped with her symptoms partially, but she did not try again due to intense symptoms while performing. Recalls 2 particularly bad episodes that lasted 30-40 minutes after waking. No associated hearing changes. Dizziness also started 3 years ago described as unsteadiness, lightheadedness, or feeling like she could pass out. This occurs when she stands and usually lasts for a brief period. Faye Activity Status Index: METS: Climb a flight of stairs or walk up a hill (5.50 METs) DASI Score: 5.5 Patient denies any chest pain or undue shortness of breath with the above physical activity. Clinical Frailty Scale: 3. Well, with treated comorbid disease STOP-Bang Score: BMI greater than 35 kg/m2 Has a large neck Denies snoring loudly Denies feeling tired, fatigued, or sleepy during the daytime Has not been observed to stop breathing or choking/gasping during sleep Denies having high blood pressure Patient 50 years old or younger Non-male patient STOP-Bang Score: 2 [id number] Score: Age: <65 Sex: female CHF history: No Hypertension history: No Vascular disease history: No Diabetes history: No [id number] Score: ARISCAT Score: Age: <=50 Preoperative SpO2: >=96% Respiratory infection in the last month: No Preoperative anemia: No Surgical incision: peripheral Duration of surgery: <2 hrs Emergency procedure: No ARISCAT Score: 0 ANESTHESIA FINDINGS: Intubation History: No history of difficult intubation Significant Anesthesia Considerations: none Airway History: No history of difficult airway I - PHYSICAL EVALUATION AIRWAY Patient intubated: No. Tracheostomy tube not present Mallampati: II. TM distance: >3 FB. Neck ROM: full ROM without neurological symptoms. Mouth opening: adequate. Short neck: no. Thick neck: yes Herr present: no Lip Bite Test: III Microretrognathia/Scot ronagthia/Recessed Chin: Yes DENTAL Dental findings: teeth intact. II - ANESTHESIA PLAN Anesthetic Plan: other Beta Kevin Monitoring Plan Post Procedure Analgesic Plan Prepared for Surgery: optimally prepared for surgery. CONSULTS: Patient does not require consults for optimization at this time Planned Anesthetic: other anesthesia choice The Following Tests/Procedures Have Been Initiated: Orders Placed This Encounter DULoxetine (CYMBALTA) 30 mg capsule Sig: Take 60 mg by mouth once daily. REASON FOR VISIT: Lyndon Burroughs is a 43 year old female who is scheduled for * No surgery found * at the request of Dr. Seema Guillory for consultation. My final recommendation will be communicated back to the requesting physician by way of shared medical record or letter. Subjective The patient has the following: COVID-19 Immunization Status Covid-19 Vaccine (Series Information) Completed 12/03/2023 Imm Admin: C (more content not included)... Normal [facility] CNOVon 02-05-2024 CNOV Office Visit (SPRTST ) LYNDON BURROUGHS ([id number]) 1980 F Date Time Provider Department 02/05/24 9:30 AM ROSIE RATLIFF During your visit today, we recorded the following information about you: Rosie Ratliff PA-C 02/05/2024 9:39 AM Signed FOLLOW UP APPOINTMENT Chief Complaint:/Reason for Visit: Established patient; Scheduled follow up appointment for new or existing problem and/or post-surgical evaluation History of Present Illness: Lyndon Burroughs follows up today for her right shoulder. She is here for repeat injection. Continues to get moderate relief. ROS: Constitutional: patient denies any recent fever or significant change in weight Cardiovascular: patient denies any chest pain at rest Respiratory: patient denies any shortness of breath or cough Gastrointestinal: patient denies any current abdominal discomfort Integumentary: patient denies any recent skin changes Musculoskeletal: as noted in the HPI Neurologic: as noted in the HPI Endocrine: patient denies a current diagnosis of diabetes Hematologic/Lymphatic : patient denies any easily bleeding, any recent infection and denies any recent observable lymph node enlargement Psychologic: negative for any recent depression or anxiety issues PAST MEDICAL HISTORY Diagnosis Date ASCUS with positive high risk HPV cervical 05/2017 Mood disorder (HCC) counseling center Myopia, bilateral 12/23/2017 Obsessive-compulsive disorders Other specified anemias PMH - PAST MEDICAL HISTORY OF HIATAL HERNIA Psychosis (HCC) Dr. Rocha at counseling center Current Outpatient Medications: cyclobenzaprine (FLEXERIL) 10 mg tablet ATIVAN 0.5 mg paliperidone ER (INVEGA) 3 mg 24 hr tablet Norethindrone, Contraceptive, (ORTHO MICRONOR) 0.35 mg tablet elderberry fruit (ELDERBERRY ORAL) buPROPion (WELLBUTRIN) 75 mg tablet amphetamine-dextroamp hetamine (ADDERALL) 15 mg tablet MULTIVITAMIN ORAL Problem List: reviewed and updated. Physical Exam: Constitutional: No acute distress, pleasant Resp: Non-labored breathing Vascular: No cyanosis Skin: No rashes noted Focused Musculoskeletal exam: General: Ambulates well; no other joint abnormalities noted. 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 Pulses: 2+ radial, ulnar; hands warm bilat, <2sec CR Compartments: soft and compressible Assessment: (M25.811) Impingement of right shoulder (primary encounter diagnosis) Plan/Medical Decision Making:The nature of the problem and all indicated treatment options available were discussed in detail with the patient. Test(s)/Imaging/Refer ral(s): None 2. Intervention: Continue conservative treatment and CSI 3. Follow-up: as needed All of Lyndon Burroughs questions were answered today. She expressed a clear understanding of our discussion and is in agreement with the outlined treatment plan Rosie Ratliff PA-C Large Joint Arthro/Inj: R subacromial bursa Informed Consent Consent Obtained: Verbal Waterfall Protocol A moment to CARE was completed. SIGN IN Sign in communication not applicable due to emergent procedure. Personnel directly involved with the procedure wore the appropriate PPE. Special Equipment: N/A Patient/Surrogate Stated/Verified: Patient name, Date of , Relevant allergies and Intended procedure TIME OUT Intended patient and procedure match the source document(s). Consent documented and matches the intended procedure. Relevant labs, photos, and/or imaging studies have been reviewed. Correct side/site marked and visible. Medications required for procedure verified. No fire risk assessment and interventions applicable. No implant(s) inserted. 02/05/2024 9:38 AM The procedure site was prepped in the usual sterile fashion. Site: R subacromial bursa Medications: 40 mg triamcinolone acetonide 40 mg/mL Anesthetics: 4 mL lidocaine (PF) 10 mg/mL (1 %) Outcome: Tolerated well, no immediate complications Post-injection instructions were reviewed with the patient and the patient voiced understanding of these instructions. SIGN OUT All instruments, equipment, possible retained foreign bodies accounted for. Referring Provider: SELF [200] Allergies As of Date: 02/05/2024 Noted Allergy Reaction LATEX 2009 TOMATOES 2009 Date Reviewed: 02/05/2024 Reviewed by: Rosie Ratliff PA-C - Fully Assessed Reason for Visit: Established Patient [175] Established Patient [175] Primary Visit Diagnosis:Impingement of right shoulder [M25.811] Order(s):Large Joint Arthro/Inj: R subacromial bursa [AFK387] Order #: [id number] [] lidocaine (PF) 10 mg/mL (1 %) 4 mL injection (XYLOCAINE)Disp: Rfl: [] triamcinolone acetonide 40 mg injection (KeNALog 40)Disp: (more content not included)... Normal [facility] Large Joint Arthro/Inj: R zimmerman bacromial bursaon 02-05-2024 Rosie Ratliff PA-C 02/05/2024 9:39 AM Large Joint Arthro/Inj: R subacromial bursa Informed Consent Consent Obtained: Verbal Waterfall Protocol A moment to CARE was completed. SIGN IN Sign in communication not applicable due to emergent procedure. Personnel directly involved with the procedure wore the appropriate PPE. Special Equipment: N/A Patient/Surrogate Stated/Verified: Patient name, Date of , Relevant allergies and Intended procedure TIME OUT Intended patient and procedure match the source document(s). Consent documented and matches the intended procedure. Relevant labs, photos, and/or imaging studies have been reviewed. Correct side/site marked and visible. Medications required for procedure verified. No fire risk assessment and interventions applicable. No implant(s) inserted. 02/05/2024 9:38 AM The procedure site was prepped in the usual sterile fashion. Site: R subacromial bursa Medications: 40 mg triamcinolone acetonide 40 mg/mL Anesthetics: 4 mL lidocaine (PF) 10 mg/mL (1 %) Outcome: Tolerated well, no immediate complications Post-injection instructions were reviewed with the patient and the patient voiced understanding of these instructions. SIGN OUT All instruments, equipment, possible retained foreign bodies accounted for. [facility] [place] 01-21-2024 TAMI Telephone (NIQ) LYNDON BURROUGHS ([id number]) 1980 F Date Time Provider Department 01/21/24 TRIAGE PSYC MAIN NIQ During your visit today, we recorded the following information about you: Ana Moyer 01/21/2024 8:11 AM Signed Patient wanted to reschedule the appointment she has to cancel for today because she does not feel well. Today's appointment was scheduled as new patient mentioned she had been seen in October. She was hoping to do a virtual visit since she lives over an hour away. Not sure if the appointment was purposely scheduled as new and if she has to be seen in person. Please advise. Allergies As of Date: 01/21/2024 Noted Allergy Reaction LATEX 2009 TOMATOES 2009 Date Reviewed: 01/06/2024 Reviewed by: Lolis White MA - Fully Assessed Reason for Visit: Appointment [186] Prescriptions as of 02/08/2024 - cyclobenzaprine (FLEXERIL) 10 mg tablet Take 1 tablet by mouth at bedtime as needed for muscle spasm or pain. - ATIVAN 0.5 mg - paliperidone ER (INVEGA) 3 mg 24 hr tablet - Norethindrone, Contraceptive, (ORTHO MICRONOR) 0.35 mg tablet Take 1 tablet by mouth once daily. - elderberry fruit (ELDERBERRY ORAL) Take by mouth. - buPROPion (WELLBUTRIN) 75 mg tablet Take 75 mg by mouth once daily. - amphetamine-dextroamp hetamine (ADDERALL) 15 mg tablet Take 15 mg by mouth two times a day. - MULTIVITAMIN ORAL Take by mouth once daily. Problem List As Of Date 01/21/2024 Noted Resolved Supervision of Normal First [Z34.00] 10/17/2005 2009 Generalized anxiety disorder [F41.1] 09/30/2016 Major depressive disorder in partial remission *09/30/2016 Morbid obesity due to excess calories (HCC) [E6*09/30/2016 ADHD (attention deficit hyperactivity disorder)*03/10/2018 Social anxiety disorder [F40.10] 03/10/2018 Personality traits affecting medical condition *03/10/2018 Dysthymia [F34.1] 03/10/2018 Chronic bilateral low back pain without sciatic*07/01/2018 Chronic pain of both knees [M25.561, M25.562, G*08/20/2020 12/18/2020 Autism spectrum disorder [F84.0] 04/10/2021 Mixed obsessional thoughts and acts [F42.2] 04/10/2021 Encounter Status:Closed by ANA MOYER on 02/08/24 [facility] Telephone (NIQ) LYNDON BURROUGHS ([id number]) 1980 F Date Time Provider Department 01/21/24 CIERA KING NIBrenda During your visit today, we recorded the following information about you: Chriss Deleon 01/21/2024 10:35 AM Signed Spoke with patient- She needed a follow up with you regarding the medication that did not work. She cancelled today, let me know how you would like to proceed. Allergies As of Date: 01/21/2024 Noted Allergy Reaction LATEX 2009 TOMATOES 2009 Date Reviewed: 01/06/2024 Reviewed by: Lolis White MA - Fully Assessed Prescriptions as of 01/25/2024 - ATIVAN 0.5 mg - paliperidone ER (INVEGA) 3 mg 24 hr tablet - Norethindrone, Contraceptive, (ORTHO MICRONOR) 0.35 mg tablet Take 1 tablet by mouth once daily. - elderberry fruit (ELDERBERRY ORAL) Take by mouth. - buPROPion (WELLBUTRIN) 75 mg tablet Take 75 mg by mouth once daily. - amphetamine-dextroamp hetamine (ADDERALL) 15 mg tablet Take 15 mg by mouth two times a day. - MULTIVITAMIN ORAL Take by mouth once daily. Problem List As Of Date 01/21/2024 Noted Resolved Supervision of Normal First [Z34.00] 10/17/2005 2009 Generalized anxiety disorder [F41.1] 09/30/2016 Major depressive disorder in partial remission *09/30/2016 Morbid obesity due to excess calories (HCC) [E6*09/30/2016 ADHD (attention deficit hyperactivity disorder)*03/10/2018 Social anxiety disorder [F40.10] 03/10/2018 Personality traits affecting medical condition *03/10/2018 Dysthymia [F34.1] 03/10/2018 Chronic bilateral low back pain without sciatic*07/01/2018 Chronic pain of both knees [M25.561, M25.562, G*08/20/2020 12/18/2020 Autism spectrum disorder [F84.0] 04/10/2021 Mixed obsessional thoughts and acts [F42.2] 04/10/2021 Encounter Status:Closed by CHRISS DELEON on 01/21/24 [facility] CNOVon 01-06-2024 CNOV Office Visit (STED) LYNDON BURROUGHS ([id number]) 1980 F Date Time Provider Department 01/06/24 12:30 PM SHAKEEL SOLANO During your visit today, we recorded the following information about you: Pulse Blood pressure Weight Height 83/minute 145/86 123.6 kg 1.676 m Last Period 01/01/24 Shakeel Solano MD 01/06/2024 1:19 PM Signed Endocrinology and Metabolism [facility] - Initial Visit Patient Name: Lyndon Burroughs Referring Provider: Kae Lennon [facility] [id number] My final recommendations will be communicated back to the requesting physician by way of shared medical record or letter via [place] mail. Chief complaint: medical weight management HPI: Lyndon Burroughs is a 43 year old female who presents on January 06, 2024 for medical weight management. Weight history: Struggled with weight - whole life Previous attempts at weight loss: - first diet at age 10 - pre-COVID low 90lbs with diet and exercise (gym) - phentermine Maximum weight: 272 lbs Lowest weight: 232 lbs Current weight: 272 lbs Patient goal or motivation for weight loss: feel better Factors associated with weight gain: Family history of overweight: everyone or menopause: gained 36lbs but lost most of it post- Tobacco use: no Weight gain associated with shift work: 2-10pm at work Poor quality, unrestful sleep: 6 hrs of sleep Medications may be associated with weight gain: paliperidone Weight graph: Target Weight : 200 pounds Last Wt 01/06/24 : 123.6 kg (272 lb 7.8 oz) 5% weight loss = 259 lbs, 10% weight loss = 245 lbs 24-HR RECALL OF MEALS: Breakfast: oatmeal apple cinnamon and hash brown and small coffee zohaib today Lunch: salad from [employer] whole portion Dinner: yday does not remember Typical beverages: water, black coffee Sugar-containing beverages: occasionally orange juice EtOH: No Eating out/take out: 5 times a week will have salad at [employer] Feel hungry frequently: Takes more food than average to feel full: No Feels hungry quickly after eating a meal: No Eat when not hungry (boredom, stress/emotional): Yes, twice a month atleast Frequent cravings or preoccupation with food: Yes (carb-heavy) Frequently overeating or binge eating: Yes Portion control: No Late night or middle of night eating: No Exercise/activity level: In the past going to gym but hasn't been back lately Sleep: Inadequate REM sleep, poor quality Goes to bed at 10pm and wakes up at 6am ANTHONY: no CPAP: n/a Mood, stress: Hx of CAROLINE, MDD, social anxiety disorder, dysthymia, ADHD Social: Employment: [employer], various other jobs from home Substance use: none Previous experience with weight loss medications: Bupropion/naltrexone: takes wellbutrin now for depression Phentermine: in the past, currently on adderall Topiramate: no GLP-1/GIP: no Metformin: no History of bariatric surgery or interest in bariatric surgery: no Medical history pertaining to weight loss medications: History of pancreatitis or gallstones: no History of kidney stones: no History of seizures: no Current opiate use: no History of glaucoma: no History of CAD or uncontrolled HTN: no Personal/family history of MEN2, MTC: no History of diabetic retinopathy: n/a Method of contraception if woman of child bearing age: none CO-MORBIDITIES: Depression and Anxiety ALLERGIES: ALLERGIES Allergen Reactions Latex Tomatoes Current Outpatient Medications on File Prior to Visit Medication Sig ATIVAN 0.5 mg paliperidone ER (INVEGA) 3 mg 24 hr tablet Norethindrone, Contraceptive, (ORTHO MICRONOR) 0.35 mg tablet Take 1 tablet by mouth once daily. elderberry fruit (ELDERBERRY ORAL) Take by mouth. buPROPion (WELLBUTRIN) 75 mg tablet Take 75 mg by mouth once daily. amphetamine-dextroamp hetamine (ADDERALL) 15 mg tablet Take 15 mg by mouth two times a day. MULTIVITAMIN ORAL Take by mouth once daily. No current facility-administered medications on file prior to visit. PAST MEDICAL HISTORY Diagnosis Date ASCUS with positive high risk HPV cervical 05/2017 Mood disorder ([facility]) counseling center Myopia, bilateral 12/23/2017 Obsessive-compulsive disorders Other specified anemias PMH - PAST MEDICAL HISTORY OF HIATAL HERNIA Psychosis ([facility]) Dr. Rocha at counseling center PAST SURGICAL HISTORY Procedure Laterality Date ENDOSCOPY PROC FAMILY HISTORY Problem Relation Age of Onset Psychiatry Mother DEPRESSION,SUICIDAL IDEATION Cancer Mother cancer in the appendix Leukemia Mother Hypertension Father Heart Father [place] Psychiatry Father DEPRESSION, bipolar COPD Father smoked from age 12 other (CHF) Father Diabetes Sister Depression Sister other (HTN) Sister Depression Brother other (htn) Br (more content not included)... Normal [facility] CN Office Visit (MARCO ) LYNDON BURROUGHS ([id number]) 1980 F Date Time Provider Department 01/06/24 8:50 AM MERLENE MCHUGH During your visit today, we recorded the following information about you: Merlene Mchugh PA-C 01/06/2024 9:16 AM Signed Schedule the vestibular rehab and vestibular test battery ~~~~~~~~~~~~~~~~~~~~~ ~~~~~~~~~~~~~~~~~~~~~ ~~~~~~~~~ Tinnitus What is tinnitus? Tinnitus is a condition in which you hear noises when there is no outside source of the sounds. The noises can have many different qualities (ringing, clicking, buzzing, roaring, whistling, or hissing) and can be soft or loud. Usually, only the person experiencing the tinnitus can hear the sounds. Tinnitus can occur either with or without hearing loss, and can be perceived in one or both ears or in the head. Approximately 50 million Americans have some form of tinnitus. For most people, the sensation usually lasts only a few minutes at a time. About 12 million people have constant or recurring tinnitus that interferes with their daily life so much that they seek professional treatment. For these individuals, tinnitus may result in a loss of sleep, interfere with concentration, and create negative emotional reactions such as despair, frustration, and depression. People of any age can suffer from tinnitus, although it does not typically occur in children. Children with tinnitus should be evaluated for hearing loss or other underlying cause. What causes tinnitus? Although tinnitus often has no specific cause, the most common identifiable causes of tinnitus include the following: hearing loss exposure to loud noises head injury medication side effects high or low blood pressure wax buildup in the ear canal fluid buildup behind the eardrum problems of the heart, blood vessels, neck, jaw, or teeth Your doctor will try to determine what is causing the condition. If it is not due to a medication side effect or a general medical condition (such as high blood pressure), he or she may refer you to an time study observer (an ear, nose, and throat doctor) or an network technician (hearing therapy director). It is especially important to see an time study observer if you experience tinnitus in only one ear, tinnitus that sounds like your heartbeat or pulse (pulsatile tinnitus), tinnitus with sudden or fluctuating hearing loss, pressure or fullness in one or both ears, and/or dizziness or balance problems. Unless the cause of the tinnitus is obvious on physical examination, a hearing test is usually required. What is the treatment for tinnitus? Learning the cause of tinnitus is often the most important step to determining treatment options. In many cases there are no medical or surgical treatments for tinnitus; however, there are management strategies that can provide some relief. Treatment options for tinnitus include the following: Hearing aids. Many people who have tinnitus also have hearing loss. Hearing aids may help provide relief from tinnitus by making it less noticeable. This is done by increasing the background noise level. Another benefit of hearing aids is that they improve communication by increasing incoming speech sounds. Sound generators. These adjustable ear-level devices produce a broadband sound (pleasant shower-like sound) that is delivered directly to the ear. These devices help people pay less attention to their tinnitus by masking it with other sounds. Sound generators are also used for tinnitus retraining therapy. (This therapy combines individualized counseling with use of sound generators.) Combination instruments. A hearing aid and sound generator can be housed in a single unit. These units are best for people who need hearing aids and may benefit from the use of sound generators. Environmental enrichment devices. A variety of [id number] devices can be used to increase the level of background sound in order to decrease the perception of tinnitus. These include tabletop sound machines that can generate different types of sounds (for example, rain, wind, waterfalls), CD/mp3 recordings of music and/or nature/environmental sounds and apps specifically created for tinnitus relief that can be used with smartphones or tablets. Neuromonics. A pleasant acoustic signal (embedded in music) is delivered to the ear through high fidelity earphones and a small credit-card size processor. This form of music therapy is a very pleasant alternative to other types of sound therapy and requires at least 6 months of active treatment time. The music also tends to further improve relaxation, which helps people cope with their tinnitus. Relaxation techniques. Many people who have tinnitus find that it worsens when they are under stress. Learning techniques to increase relaxation and ease stress can help people better deal (more content not included)... Normal [facility] PO Office Visit (NORMA ) LYNDON BURROUGHS ([id number]) 1980 F Date Time Provider Department 01/06/24 8:00 AM NASREEN SOLORZAON During your visit today, we recorded the following information about you: Nasreen Solorzano, Jose, CCC-A 01/06/2024 8:34 AM Signed [facility] Head and Neck Department AUDIOLOGIC EVALUATION REPORT Name: Lyndon Burroughs CCF#: [id number] Date of Service: 01/06/2024 Date of : 1980 Age: [age] year old Referred by: Igor Blair APRN.* Referred for: Evaluation of the cause of disorder of hearing, tinnitus, or balance. Referral documented: In an order in Epic Patient's major complaints: Tinnitus in both ears, Dizziness/vertigo/imb alance, Pressure/fullness left ear greater than right ear Hearing loss: denied Tinnitus: intermittent in both ears for at least the last 10 years Ear pain: denied Aural fullness: feels fullness in left ear more than right Otorrhea: denied History of ear infections: denied History of otologic surgeries: denied Dizziness: she experiences both room spinning and lightheadedness. She can be standing up, rolling over in bed, turning her head. Noted more left than right. Noise exposure: in band in high school. Attending concerts. She tries to use hearing protection. History of chemotherapy or radiation: denied History of head trauma: denied Family history of hearing loss: denied Hearing aids: no Other concerns: none Lyndon Burroughs was seen for an initial audiologic evaluation. See Audiogram in Procedures Tab for additional reported history and symptoms. Risk of Falls Documentation for over 65 years old: Does not apply IMPRESSIONS RIGHT EAR: Hearing within normal limits LEFT EAR: Essentially WNL Comparison of today's results with previous test results (): No previous results available AUDIOLOGIC EVALUATION Following is a brief interpretation of the obtained findings from the audiologic evaluation. Refer to the Auditory Test Record for complete audiometric results. The patient was counseled about the test findings and appropriate audiologic recommendations were made. SUMMARY: Audiogram can be viewed under Procedures Tab OTOSCOPY RIGHT EAR: Otoscopic inspection revealed ear canal was clear with minimal amount of non-occluding cerumen present and identifiable cone of light suggesting WNL middle ear system. LEFT EAR: Otoscopic inspection revealed ear canal was clear with an identifiable cone of light suggesting WNL middle ear system. TYMPANOMETRY Description of procedure: This test is an objective evaluation of middle ear function. CPT code: 75492 RIGHT EAR: Normal ME function. LEFT EAR: Normal ME function. ACOUSTIC REFLEXES Description of procedure: This test is an objective measure of auditory and facial nerve pathways. CPT code: 34431, 86757 RIGHT EAR PROBE EAR: (ipsi right stimulus ear; contralateral left stimulus ear): Acoustic Reflex Pattern Did not test Acoustic Reflex Decay (left stimulus ear): Did not test. LEFT EAR PROBE EAR: (ipsi left stimulus ear; contralateral right stimulus ear): Acoustic Reflex Pattern Did not test Acoustic Reflex Decay (right stimulus ear):Did not test. PURE TONE AUDIOMETRY AND SPEECH TESTING Description of procedure: This test is an objective evaluation hearing sensitivity via air and bone conduction and speech recognition testing. CPT code: 51305 RIGHT EAR: Hearing Sensitivity: WNL Word Recognition Score: Excellent (100%). WRS is consistent with hearing sensitivity. Words were presented at 50 dB HL approximates (45-55 dB HL) intensity level for average conversational speech. The NU-6 Ordered by Difficulty Word List (10 words) was used for testing. and Contralateral masking was used. LEFT EAR: Hearing Sensitivity: WNL to mild unspecified loss at 8000 Hz. Word Recognition Score: Excellent (100%). WRS is consistent with hearing sensitivity. Words were presented at 50 dB HL which approximates (45-55 dB HL) intensity level for average conversational speech. The NU-6 Ordered by Difficulty Word List (10 words) was used for testing. and Contralateral masking was used. RECOMMENDATIONS * Continue medical follow-up with Merlene Mchugh PA-C. * Re-evaluation as medically indicated. * Return if a change in hearing is noted. * Consider assessment of vestibular and balance system (Vestibular Battery). Jose Keane., [facility]-A Senior Human Resource Internship copied to: Errol Luu MD GERARDO Abbrev- iation Definition Degree of hearing sensitivity dB range WNL within normal limits WNL 0 - 20 SNHL sensorineural hearing loss Mild 20-40 CHL conductive hearing loss Moderate 40-55 MHL mixed hearing loss Moderately-Severe 55-70 WRS word recognition score Severe 70-90 ME middle ear Profound 90 + TM tympanic membrane Referring Provider: IGOR BLAIR [[id number] (more content not included)... Normal [facility] HEARING TEST/AUDIOGRAMon [facility] CNOVon 12-31-2023 CNOV Office Visit (UCWSTR ) LYNDON BURROUGHS ([id number]) 1980 F Date Time Provider Department 12/31/23 9:00 AM ROSIE SORIANO [facility] During your visit today, we recorded the following information about you: Temperature Pulse Respiration Blood pressure 97.6 degrees 85/minute 18/minute 145/72 Weight 126.8 kg Rosie Soriano APRN.CHROME CLEANER 12/31/2023 9:21 AM Signed This note was created using UpNextriter. Subjective Lyndon Burroughs is a 43 year old female. 43 year old female with PMH anxiety, ADHD, Acute onset yesterday +irritated +white spots Denies eye, ear nose Denies cough Denies fever or chills Denies malaise or fatigue Denies URI sx. 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 No saw edge fuser circular was used. Sore Throat This is a new problem. The current episode started yesterday. The problem has been unchanged. Neither side of throat is experiencing more pain than the other. There has been no fever. The pain is at a severity of 5/10. The pain is moderate. Associated symptoms include swollen glands. Pertinent negatives include no abdominal pain, congestion, coughing, diarrhea, drooling, ear discharge, ear pain, headaches, hoarse voice, plugged ear sensation, neck pain, shortness of breath, stridor, trouble swallowing or vomiting. She has had no exposure to strep or mono. She has tried nothing for the symptoms. The treatment provided no relief. PAST MEDICAL HISTORY Diagnosis Date ASCUS with positive high risk HPV cervical 05/2017 Mood disorder (HCC) counseling center Myopia, bilateral 12/23/2017 Obsessive-compulsive disorders Other specified anemias PMH - PAST MEDICAL HISTORY OF HIATAL HERNIA Psychosis (HCC) Dr. Rocha at counseling center PAST SURGICAL HISTORY Procedure Laterality Date ENDOSCOPY PROC ALLERGIES Latex and Tomatoes MEDICATIONS ATIVAN 0.5 mg paliperidone ER (INVEGA) 3 mg 24 hr tablet Norethindrone, Contraceptive, (ORTHO MICRONOR) 0.35 mg tablet Take 1 tablet by mouth once daily. elderberry fruit (ELDERBERRY ORAL) Take by mouth. buPROPion (WELLBUTRIN) 75 mg tablet Take 75 mg by mouth once daily. amphetamine-dextroamp hetamine (ADDERALL) 15 mg tablet Take 15 mg by mouth two times a day. MULTIVITAMIN ORAL Take by mouth once daily. FAMILY HISTORY Problem Relation Age of Onset Psychiatry Mother DEPRESSION,SUICIDAL IDEATION Cancer Mother cancer in the appendix Leukemia Mother Hypertension Father Heart Father OK Psychiatry Father DEPRESSION, bipolar COPD Father smoked from age 12 other (CHF) Father Diabetes Sister Depression Sister other (HTN) Sister Depression Brother other (htn) Brother Diabetes Brother Bipolar disorder Brother Psychiatry Brother Schizoaffective Alcohol/Drug Maternal Grandmother ALCOHOLIC Alzheimer's Disease Maternal Grandmother Arthritis Maternal Grandmother Colon Cancer Maternal Grandmother Psychiatry Maternal Grandmother Alcohol/Drug Maternal Grandfather ALCOHOLIC Stroke Maternal Grandfather Alcohol/Drug Paternal Grandmother ALCOHOLIC Heart Paternal Grandmother CHF Alcohol/Drug Paternal Grandfather ALCOHOLIC Heart Paternal Grandfather OK Stroke Paternal Grandfather Alzheimer's Disease Paternal Grandfather Diabetes Maternal Uncle Colon Cancer Maternal Uncle Cancer Maternal Uncle pancreatic cancer Breast Cancer Paternal Aunt Diabetes Paternal Aunt PAUNT X 5 Diabetes Paternal Uncle Autism Other Anxiety disorder Other Tourette syndrome Other Social History Tobacco Use Smoking status: Never Smokeless tobacco: Never Vaping Use Vaping status: Never Used Substance Use Topics Alcohol use: No Drug use: No Review of Systems Constitutional: Negative for activity change, appetite change, chills and diaphoresis. HENT: Positive for sore throat. Negative for congestion, drooling, ear discharge, ear pain, hoarse voice and trouble swallowing. Eyes: Negative for pain, discharge and itching. Respiratory: Negative for cough, shortness of breath and stridor. Gastrointestinal: Negative for abdominal pain, diarrhea and vomiting. Musculoskeletal: Negative for neck pain. Allergic/Immunologic: Negative for environmental allergies, food allergies and immunocompromised state. Neurological: Negative for headaches. Hematological: Negative for adenopathy. Does not bruise/bleed easily. Objective BP 145/72 Pulse 85 Temp 36.4 ?C (97.6 ?F) Resp 18 Wt 126.8 kg (279 lb 8.7 oz) LMP 11/24/2023 (Exact Date) SpO2 98% BMI 45.12 kg/m? Physical Exam Vitals and nursing note reviewed. Constitutional: General: She is not in acute distress. Appearance: Normal appearance. She is obese. She is not ill-appearing, toxic-appearing or diaphoretic. HENT: Head: Normocephalic and atraumatic. Right Ear: Ear santana (more content not included)... Normal [facility] STREP A MOLECULAR (POC)on Procedural Control Valid [facility] Strep A (POCT) Negative Negative [facility] CT ABD/PEL WO IVCONon 2023 CT ABD/PEL WO IVCON * * *Final Report* * * DATE OF EXAM: Dec 17 2023 10:54AM [facility] 0531 - CT ABD/PEL WO IVCON / PROCEDURE REASON: multiple diagnoses * * * * Physician Interpretation * * * * EXAMINATION: CT ABDOMEN AND PELVIS WITHOUT IV CONTRAST CLINICAL HISTORY: Left lower quadrant abdominal pain TECHNIQUE: Non-IV contrast imaging of the abdomen and pelvis was performed using standard technique, scanning from just above the dome of the diaphragm to the symphysis pubis. Unenhanced imaging is limited for the evaluation of some intra-abdominal and pelvic pathology. MQ: CTAPWO_3 Contrast: IV: None Oral: 12 ml of Omni 240 10-25ml diluted with water CT Radiation dose: Integrated Dose-length product (DLP) for this visit = 986 mGy*cm. CT Dose Reduction Employed: Automated exposure control(AEC) and iterative recon COMPARISON: 01/07/2016 RESULT: Abdomen / Pelvis: Liver: Unremarkable. Biliary: The gallbladder is unremarkable. Spleen: No splenomegaly. Pancreas: Unremarkable. Adrenals: No mass. Kidneys: No calculus, hydronephrosis or finding to suggest a cyst or mass in the unenhanced kidney. GI Tract: No bowel dilation. Normal appendix. Lymph Nodes: No lymphadenopathy. Mesentery/peritoneum: No ascites. Retroperitoneum: No mass. Vasculature: No abdominal aortic or iliac artery aneurysm. Pelvis: No mass or ascites. Bones/Soft Tissues: No acute abnormality. Lower thorax: Unremarkable. Localizer images: Unremarkable. IMPRESSION: No acute intra-abdominal or pelvic process identified. 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: GIUSEPPE Transcribe Date/Time: Dec 19 2023 9:04A Dictated by : EDIN RUDOLPH MD This examination was interpreted and the report reviewed and electronically signed by: EDIN RUDOLPH MD on Dec 19 2023 9:06AM EST [id number] Normal [facility] ECHOon 12-17-2023 Echocardiography Echocardiography Report: Transthoracic Echo [facility] Date of service: 12/17/2023 7:59:13 AM CAR LOADER Ordering physician: IGOR BLAIR Indication: Palpitations Technologist: Germaine Cosme [facility] Interpreting physician: Gianfranco Hall MD PATIENT: Name: MISS LYNDON BURROUGHS : 1980 Age: 43 years Gender: F Primary rhythm: sinus. Height: 167.60 cm BSA: 2.40 m Weight: 123.30 kg BMI: 43.9 kg/m Heart rate 89 bpm Blood pressure 139/83 mmHg Color Doppler was utilized to interrogate the cardiac valves assessed and spectral Doppler was utilized to determine the flow velocities and pressure gradients reported in this exam. Myocardial strain analysis was performed in this exam to aid in the assessment of cardiac function. MEASUREMENTS: Value Indexed Normal Max aortic dimension 3.3 cm Ao < 3.8 Left atrial volume 53 ml (biplane A-L) 22 ml/m Zuhair <= 34 LV ID (diastole) 4.3 cm (2D) 1.79 cm/m LV ID (systole) 3.0 cm (2D) 1.26 cm/m IVS, leaflet tips 0.9 cm (2D) Posterior wall thickness 1.1 cm (2D) Left ventricular mass 148 g (2D) 62 g/m Global peak long strain -18.8 % LV stroke volume 55 ml (2D biplane) LV end diastolic volume 95 ml (2D biplane) 39.7 ml/m 29<=EDVi<62 LV end systolic volume 40 ml (2D biplane) 16.7 ml/m Ejection Fraction 58 % (2D biplane) EF > 54 FINDINGS: LEFT VENTRICLE The left ventricle is normal in size. Left ventricular systolic function is normal. Global LV myocardial strain is normal. Normal left ventricular diastolic function. Mitral annular lateral E/e': 9.2. Mitral annular septal E/e': 11.2. Wall Motion: All scored segments are normal. RIGHT VENTRICLE The right ventricle is normal in size. Right ventricular systolic function is normal. RV systolic tissue Doppler velocity is 15.0 cm/s. Estimated right ventricular systolic pressure is 29 mmHg consistent with normal pulmonary artery pressures. Estimated right atrial pressure is 3 mmHg (although IVC not seen). LEFT ATRIUM The left atrial cavity is normal in size. Pulmonary Veins: The pulmonary venous pattern showed normal systolic flow. RIGHT ATRIUM The right atrial cavity is normal in size. Inferior Vena Cava: The inferior vena cava appears normal measuring 1.8 cm. MITRAL VALVE The mitral valve leaflets are structurally normal. There is no mitral valve regurgitation. The pressure half time is 36 msec. The peak mitral E/A ratio is 0.88. The average mitral E/e' ratio is 10.2. The mitral flow deceleration time is 124 msec. TRICUSPID VALVE The tricuspid valve leaflets are structurally normal. There is trace (trace - 1+) tricuspid valve regurgitation. AORTIC VALVE The aortic valve cusps are structurally normal. There is no aortic valve regurgitation. Tricuspid aortic valve. The peak gradient is 12 mmHg (peak velocity = 170.0 cm/s). PULMONIC VALVE The pulmonic valve cusps are structurally normal. There is no pulmonic valve regurgitation. AORTA The visualized aorta is normal in size. Measurements - Mid ascending aorta 3.3 cm. PERICARDIUM There is no pericardial effusion. There is an epicardial fat pad. CONCLUSIONS: - Exam indication: Palpitations - The left ventricle is normal in size. Left ventricular systolic function is normal. EF = 58 5% (2D biplane) Normal left ventricular diastolic function. - The right ventricle is normal in size. Right ventricular systolic function is normal. - There are no significant valvular abnormalities. - The patient has not had a prior CC echocardiographic exam for comparison. * * * Final * * * CC Pocket Video Medical Image : [id number] amicsSISUID Normal [facility]UR[facility]OUGHS ([id number]) 1980 F Date Time Provider Department 12/08/23 ERROL LUU INTWS During your visit today, we recorded the following information about you: Yara Lock LPN 12/08/2023 9:16 AM Signed ----- Message from Errol Luu MD sent at 12/07/2023 7:28 PM EDT ----- Please review lipid labs and if you have any questions let me know. In general weight loss and exercising for at least 30 minutes every day along with eating red meat may help with reducing these numbers. Yara Lock LPN 12/08/2023 9:19 AM Signed Spoke with pt and results below given. Double checking on eating red meat. I instructed eating less red meat. If this is incorrect please advise pt. Pt reports she doesn't eat a lot of red meat. Yara Lock LPN Allergies As of Date: 12/08/2023 Noted Allergy Reaction LATEX 2009 TOMATOES 2009 Date Reviewed: 12/07/2023 Reviewed by: Rosie Molina, OLVIN - Fully Assessed Reason for Visit: Results [95] Prescriptions as of 12/08/2023 - elderberry fruit (ELDERBERRY ORAL) Take by mouth. - buPROPion (WELLBUTRIN) 75 mg tablet Take 75 mg by mouth once daily. - amphetamine-dextroamp hetamine (ADDERALL) 15 mg tablet Take 15 mg by mouth two times a day. - Norethindrone, Contraceptive, (ORTHO MICRONOR) 0.35 mg tablet Take 1 tablet by mouth once daily. - MULTIVITAMIN ORAL Take by mouth once daily. Problem List As Of Date 12/08/2023 Noted Resolved Supervision of Normal First [Z34.00] 10/17/2005 2009 Generalized anxiety disorder [F41.1] 09/30/2016 Major depressive disorder in partial remission *09/30/2016 Morbid obesity due to excess calories (HCC) [E6*09/30/2016 ADHD (attention deficit hyperactivity disorder)*03/10/2018 Social anxiety disorder [F40.10] 03/10/2018 Personality traits affecting medical condition *03/10/2018 Dysthymia [F34.1] 03/10/2018 Chronic bilateral low back pain without sciatic*07/01/2018 Chronic pain of both knees [M25.561, M25.562, G*08/20/2020 12/18/2020 Autism spectrum disorder [F84.0] 04/10/2021 Mixed obsessional thoughts and acts [F42.2] 04/10/2021 Encounter Status:Closed by ERROL LUU on 12/08/23 [facility] CNOVon 12-07-2023 CNOV Office Visit (GENSWS ) LYNDON BURROUGHS ([id number]) 1980 F Date Time Provider Department 12/07/23 8:45 AM SEEMA GULILORY During your visit today, we recorded the following information about you: Pulse Respiration Blood pressure Weight 97/minute 16/minute 158/77 124.7 kg Height Last Period 1.676 m 11/24/23 Seema Guillory MD 12/08/2023 3:32 PM Signed HISTORY AND PHYSICAL Lyndon Burroughs 1980 REFERRING PHYSICIAN: Tico Root APRN.BATCH AND FURNACE MANAGER CHIEF COMPLAINT: No chief complaint on file. HPI: The patient is a 43 year old female referred for endoscopy. Lyndon notes presents for screening for colon cancer via colonoscopy The patient denies blood in stools, denies abdominal pain, and denies changes in bowel habits. Patient's mother had appendiceal cancer, diagnosed in her late 60s and has passed due to this. Her maternal grandmother had colon cancer She denies previous colonoscopy. She did have previous EGD at age 17. PAST MEDICAL HISTORY Diagnosis Date ASCUS with positive high risk HPV cervical 05/2017 Mood disorder (HCC) counseling center Myopia, bilateral 12/23/2017 Obsessive-compulsive disorders Other specified anemias PMH - PAST MEDICAL HISTORY OF HIATAL HERNIA Psychosis (HCC) Dr. Rocha at [facility] center PAST SURGICAL HISTORY Procedure Laterality Date ENDOSCOPY PROC Current Outpatient Medications Medication Sig buPROPion (WELLBUTRIN) 75 mg tablet Take 75 mg by mouth once daily. amphetamine-dextroamp hetamine (ADDERALL) 15 mg tablet Take 15 mg by mouth two times a day. Norethindrone, Contraceptive, (ORTHO MICRONOR) 0.35 mg tablet Take 1 tablet by mouth once daily. MULTIVITAMIN ORAL Take by mouth once daily. No current facility-administered medications for this visit. ALLERGIES: Latex and Tomatoes PERSONAL HISTORY: Social History Tobacco Use Smoking status: Never Smokeless tobacco: Never Vaping Use Vaping status: Never Used Substance Use Topics Alcohol use: No Drug use: No FAMILY HISTORY Problem Relation Age of Onset Psychiatry Mother DEPRESSION,SUICIDAL IDEATION Cancer Mother cancer in the appendix Leukemia Mother Hypertension Father Heart Father [place] Psychiatry Father DEPRESSION, bipolar COPD Father smoked from age 12 other (CHF) Father Diabetes Sister Depression Sister other (HTN) Sister Depression Brother other (htn) Brother Diabetes Brother Bipolar disorder Brother Psychiatry Brother Schizoaffective Alcohol/Drug Maternal Grandmother ALCOHOLIC Alzheimer's Disease Maternal Grandmother Arthritis Maternal Grandmother Colon Cancer Maternal Grandmother Psychiatry Maternal Grandmother Alcohol/Drug Maternal Grandfather ALCOHOLIC Stroke Maternal Grandfather Alcohol/Drug Paternal Grandmother ALCOHOLIC Heart Paternal Grandmother CHF Alcohol/Drug Paternal Grandfather ALCOHOLIC Heart Paternal Grandfather [place] Stroke Paternal Grandfather Alzheimer's Disease Paternal Grandfather Diabetes Maternal Uncle Colon Cancer Maternal Uncle Cancer Maternal Uncle pancreatic cancer Breast Cancer Paternal Aunt Diabetes Paternal Aunt PAUNT X 5 Diabetes Paternal Uncle Autism Other Anxiety disorder Other Tourette syndrome Other REVIEW OF SYMPTOMS: The review of systems data was entered by the nurse and reviewed by me There are no exam notes on file for this visit. She denies chest pain; she notes occasional shortness of breath with exertion PHYSICAL EXAMINATION: General: The patient is 43 year old female, well nourished, well hydrated in no acute distress. The patient is oriented to time, place, and person. VITALS: Blood pressure 158/77, pulse 97, resp. rate 16, height 167.6 cm (5' 6), weight 124.7 kg (275 lb), last menstrual period 11/24/2023, SpO2 99%. Head: Normal cephalic, atraumatic Eyes: pupils are equally round, sclera are clear/anicteric, wearing glasses Neck is supple with no tracheal deviation Cardiac: normal heart sounds, regular Respiratory: Normal respiratory excursion and pattern. Abdominal exam: benign Extremities: no clubbing, cyanosis or edema. Neuro: non focal Psych: normal mood Assessment IMPRESSION: screening for colon cancer via colonoscopy PLAN: I have discussed the above with the patient. I have offered colonoscopy , possible biopsies I have explained the procedure to the patient. I have counseled the patient as to the risks of the procedure, including but not limited to: infection, bleeding, injury to any intrabdominal organs such as liver/spleen, perforation of the GI tract, inability to complete the procedure, complications of anesthesia, etc. - the patient understands. The patient wishes to proceed. I have answered all questions to the patient?s satisfaction and the patient has no further questions. My clinic staff has edu (more content not included)... Normal [facility] Lipid 1996 panelon 4 Cholesterol [Mass/Vol] 199 mg/dL Normal <[address] [facility] Comment on above: Order Comment: Speci men Type: BLOOD SPECIMENOrdering Facility: [facility] Address: [address] [place] [address] Result Comment: <200 mg/dL, Desirable 200-239 mg/dL, Borderline high >239 mg/dL, High Performed By: #### 2 4331-1 ####[facility] LABCLIA [id number] [facility] [id number] [address] [place] Cholesterol in HDL [Mass/Vol] 50 mg/dL Normal >[address] [facility] Comment on above: Order Comment: Albaro armen Type: BLOOD SPECIMENOrdering Facility: [facility] Address: [address] [place] [address] Result Comment: 40-5 9 mg/dL, Acceptable >59 mg/dL, High: Negative risk factor for coronary heart disease <40 mg/dL, Low: Positive risk factor for coronary heart disease Performed By: #### 2 4331-1 ####[facility] LABCLIA [id number] [address] [place] Cholesterol in LDL [Mass/Vol] 129 mg/dL High <[address] [facility] Comment on above: Order Comment: Albaro armen Type: BLOOD SPECIMENOrdering Facility: [facility] Address: [address] [place] [address] Result Comment: <100 mg/dL, Optimal 100-129 mg/dL, Near optimal/above optimal 130-159 mg/dL, Borderline high 160-189 mg/dL, High >189 mg/dL, Very high Secondary prevention optimal LDL Cholesterol levels are recommended to be < 70 mg/dL Performed By: #### 2 4331-1 ####[facility] LAB[facility]IA [id number] [address] [place] Cholesterol in LDL/Cholesterol in HDL [Mass ratio] 2.58 {ratio} High <2.[address] [facility] Comment on above: Order Comment: Jamariroe ayers Type: BLOOD SPECIMENOrdering Facility: [facility] Address: [address] [place] [address] Result Comment: Refe bobce: 1. National Cholesterol Education Program ATP III Guideline At-A-Glance Quick Desk Reference: National Heart, Lung, and Blood [place]. National Institutes of Health. 2001: NIH Publication No. 01-3305. 2. An International Atherosclerosis Society position paper: global recommendations for the management of dyslipidemia: executive summary, Atherosclerosis. 2014: 232(2):410-413. Performed By: #### 2 4331-1 ####[facility] LABCLIA [id number] [address] [id number] [address] [place] Cholesterol in VLDL [Mass/Vol] 20 mg/dL Normal <[address] [facility] Comment on above: Order Comment: Speci men Type: BLOOD SPECIMENOrdering Facility: [facility] Address: [address] [place] [address] Performed By: #### 2 4331-1 ####[facility]CLIA [id number] [place] [address] [place] Cholesterol non HDL [Mass/Vol] 149 mg/dL High <[address] [facility] Comment on above: Order Comment: Speci men Type: BLOOD SPECIMENOrdering Facility: [facility] Address: [address] [place] [address] Result Comment: <130 mg/dL, Optimal 130-159 mg/dL, Near optimal/above optimal 160-189 mg/dL, Borderline high 190-219 mg/dL, High >219 mg/dL, Very high Secondary prevention optimal non HDL Cholesterol levels are recommended to be <100 mg/dL Performed By: #### 2 4331-1 ####[facility]CLIA [id number] [place] [address] [place] Cholesterol.total/Cho lesterol in HDL [Mass ratio] 3.98 {ratio} Normal <5.[address] [facility] Comment on above: Order Comment: Speci men Type: BLOOD SPECIMENOrdering Facility: [facility] Address: [address] [place] [address] Performed By: #### 2 4331-1 ####[facility]CLIA [id number] [place] [address] [place] FASTING TIME 12 hrs Normal [facility] Comment on above: Order Comment: Speci men Type: BLOOD SPECIMENOrdering Facility: [facility] Address: [address] [place] [address] Performed By: #### 2 4331-1 ####[facility]CLIA [id number] [place] [address] [place] Triglyceride [Mass/Vol] 101 mg/dL Normal <[address] [facility] Comment on above: Order Comment: Speci men Type: BLOOD SPECIMENOrdering Facility: [facility] Address: [address] [place] [id number] Result Comment: <150 mg/dL, Normal 150-199 mg/dL, Borderline high 200-499 mg/dL, High >499 mg/dL, Very high Performed By: #### 2 4331-1 ####[facility]IA [id number] [address] [id number] [id number] [place] CNPNon 12-04-2023 CNPN Telephone (MANUELWST) LYNDON BURROUGHS ([id number]) 1980 F Date Time Provider Department 12/04/23 ANASTASIIA [place] During your visit today, we recorded the following information about you: Anastasiia [place] MSW 12/04/2023 10:41 AM Signed received consult requesting Sw reach out to patient to discuss financial assistance needs. Tez left message for patient to return call. Tez will also send My Chart message as well to see if that is an easier way to connect. Anastasiia [place] MSW 12/09/2023 12:19 PM Signed Tez left message for patient to return call to discuss social service needs. Allergies As of Date: 12/04/2023 Noted Allergy Reaction LATEX 2009 TOMATOES 2009 Date Reviewed: 12/03/2023 Reviewed by: Susie Angeles LPN - Fully Assessed Prescriptions as of 12/09/2023 - elderberry fruit (ELDERBERRY ORAL) Take by mouth. - buPROPion (WELLBUTRIN) 75 mg tablet Take 75 mg by mouth once daily. - amphetamine-dextroamp hetamine (ADDERALL) 15 mg tablet Take 15 mg by mouth two times a day. - Norethindrone, Contraceptive, (ORTHO MICRONOR) 0.35 mg tablet Take 1 tablet by mouth once daily. - MULTIVITAMIN ORAL Take by mouth once daily. Problem List As Of Date 12/04/2023 Noted Resolved Supervision of Normal First [Z34.00] 10/17/2005 2009 Generalized anxiety disorder [F41.1] 09/30/2016 Major depressive disorder in partial remission *09/30/2016 Morbid obesity due to excess calories (HCC) [E6*09/30/2016 ADHD (attention deficit hyperactivity disorder)*03/10/2018 Social anxiety disorder [F40.10] 03/10/2018 Personality traits affecting medical condition *03/10/2018 Dysthymia [F34.1] 03/10/2018 Chronic bilateral low back pain without sciatic*07/01/2018 Chronic pain of both knees [M25.561, M25.562, G*08/20/2020 12/18/2020 Autism spectrum disorder [F84.0] 04/10/2021 Mixed obsessional thoughts and acts [F42.2] 04/10/2021 Encounter Status:Closed by ANASTASIIA [place]ORADO on 12/09/[address] [facility] Ferrit[facility] [Mass/Vol] 36.0 ng/mL Normal 14.7-205.1 [facility] Comment on above: Order Comment: Albaro ayers Type: BLOOD SPECIMEN Ordering Facility: [facility] Address: [facility] [address], [place] [address] Performed By: #### 2 276-4 #### [facility] CLIA [id number] [address] [place] [address] [place] THYROID PEROXIDASE ANTIBODYo n 12-04-2023 TPO Ab Qn [IU]/mL Normal <5.[address] [facility] Comment on above: Order Comment: Albaro ayers Type: BLOOD SPECIMENOrdering Facility: [facility] Address: [address], [place] [address] Result Comment: Thyr oid Peroxidase Antibody test is used as an aid in diagnosis of autoimmune thyroid disease. Clinical correlation is required. Performed By: #### M ICRO ####[facility]CLIA [id number] [place] [address] [place] Zinc SerPl-mCncon 12-04-2023 Zinc [Mass/Vol] 69 ug/dL Normal 60-[address] [facility] Comment on above: Order Comment: Albaro ayers Type: BLOOD SPECIMEN Ordering Facility: [facility] Address: [address], [place] [address] Result Comment: This test was developed, and its performance characteristics determined by the [facility] Department of Pathology and Laboratory Medicine. It has not been cleared or approved by the FDA. The [facility] Department of Pathology and Laboratory Medicine is regulated under CLIA as qualified to perform high-complexity testing. This test is used for clinical purposes. It should not be regarded as investigational or for research. Performed By: #### 5 763-8 #### [facility] CLIA [id number] [address] [place] [address] [place] CNOVon 12-03-2023 CNOV Office Visit (INTMWS ) LYNDON BURROUGHS ([id number]) 1980 F Date Time Provider Department 12/03/23 8:20 AM TICO ROOT INTMWS During your visit today, we recorded the following information about you: Pulse Respiration Blood pressure Weight 86/minute 16/minute 129/84 123.8 kg Tico Root APRN.CNS 12/03/2023 3:51 PM Signed SUBJECTIVE: Influenza Vaccine(1) due on 10/11/2023 Covid-19 Vaccine(2023- season) due on 10/11/2023 Colorectal Cancer Screening Never done Mammogram Screening due on 05/10/2024 HPI Lyndon Burroughs is a 43 year old female. PMH significant for ACTIVE PROBLEM LIST Generalized Anxiety Disorder Major Depressive Disorder in Partial Remission (Hcc) Morbid Obesity Due to Excess Calories (Hcc) Adhd (Attention Deficit Hyperactivity Disorder), Combined Type Social Anxiety Disorder Personality Traits Affecting Medical Condition Dysthymia Chronic Bilateral Low Back Pain Without Sciatica Autism Spectrum Disorder Mixed Obsessional Thoughts and Acts PCP: Errol Luu MD Presents today for follow-up visit. She continues to have significant amounts of stress. Continue to follow-up with behavioral health. She reports son currently is ill with feeling fatigued. She reports no recent illness herself. No longer taking phentermine for weight loss. Notes try to eat healthy. Limited exercise due to diffuse pain and fibromyalgia. Since last here she had a July 17, 2023 appointment for impingement of left shoulder with orthopedics. She underwent a joint injection was referred to physical therapy. She had a October 22, 2023 visit with neurology regarding POTS. Impression was fibromyalgia depression anxiety OCD ADHD autism chronic pain syndrome. She was started on a trial of gabapentin. Followed by Sylvain Garay APRN [facility]. Today reports periumbical discomfort which is constant mild at rest moderate with movement. Pulling sensation is noted. Notes increased discomfort when lifting litter box wearing tight pants. Not increased with coughing or bearing down. Has not felt anything abnormal in the area. Pain is present left side of the umbilicus and a bit lateral to this on the left side as well. Heartburn: no Reflux: no Abdominal pain: LLQ, periumbilical Nausea: no Vomiting: no Alternating diarrhea and constipation, chronic. Daily BM BRBPR: no Black tarry:no She reports both her sister and mother had thyroid disease. Mother had colonic polyps. Paternal grandmother had colon cancer. Review of Systems Constitutional: Positive for unexpected weight change. Musculoskeletal: Positive for arthralgias and back pain. Psychiatric/Behaviora l: Positive for decreased concentration, dysphoric mood and sleep disturbance. The patient is nervous/anxious. Objective BP 129/84 Pulse 86 Resp 16 Wt 123.8 kg (272 lb 14.9 oz) LMP 06/21/2023 (Exact Date) BMI 44.05 kg/m? Physical Exam Vitals and nursing note reviewed. Constitutional: Appearance: Normal appearance. HENT: Head: Normocephalic and atraumatic. Eyes: Conjunctiva/sclera: Conjunctivae normal. Cardiovascular: Rate and Rhythm: Normal rate and regular rhythm. Pulses: Carotid pulses are 2+ on the right side and 2+ on the left side. Radial pulses are 2+ on the right side and 2+ on the left side. Heart sounds: Normal heart sounds. Pulmonary: Effort: Pulmonary effort is normal. Breath sounds: Normal breath sounds. Abdominal: General: Bowel sounds are normal. Palpations: Abdomen is soft. Musculoskeletal: Right lower leg: No edema. Left lower leg: No edema. Skin: General: Skin is warm and dry. Neurological: General: No focal deficit present. Mental Status: She is alert and oriented to person, place, and time. ALLERGIES Allergen Reactions Latex Tomatoes Medications buPROPion (WELLBUTRIN) 75 mg tablet Take 75 mg by mouth once daily. amphetamine-dextroamp hetamine (ADDERALL) 15 mg tablet Take 15 mg by mouth two times a day. Norethindrone, Contraceptive, (ORTHO MICRONOR) 0.35 mg tablet Take 1 tablet by mouth once daily. MULTIVITAMIN ORAL Take by mouth once daily. PAST MEDICAL HISTORY Diagnosis Date ASCUS with positive high risk HPV cervical 05/2017 Mood disorder (HCC) counseling center Myopia, bilateral 12/23/2017 Obsessive-compulsive disorders Other specified anemias PMH - PAST MEDICAL HISTORY OF HIATAL HERNIA Psychosis (HCC) Dr. Rocha at counseling center Social History Tobacco Use Smoking status: Never Smokeless tobacco: Never Vaping Use Vaping status: Never Used Substance Use Topics Alcohol use: No Drug use: No Latest Ref Rng 11/01/2022 01/09/2023 06/26/2023 11/26/2023 WBC 3.70 - 11.00 k/uL 6.20 12.18 (H) RBC 3.90 - 5.20 m/uL 4.86 5.23 (H) Hemoglobin 11.5 - 15.5 g/dL 13.6 14.4 Hematocrit 36.0 - 46.0 % 43.7 45. (more content not included)... Normal [facility] metabolic 2000 panelon 12-03-2023 Albumin [Mass/Vol] 4.3 g/dL 3.9 - 4.9 g/dL [facility] ALP [Catalytic activity/Vol] 89 U/L 34 - 123 U/L [facility] ALT [Catalytic activity/Vol] 18 U/L 7 - 38 U/L [facility] Anion gap [Moles/Vol] 11 mmol/L 8 - 15 mmol/L [facility] AST [Catalytic activity/Vol] 22 U/L 13 - 35 U/L [facility] Comment on above: Results may be false ly increased due to interference from hemolysis. Suggest reorder as clinically indicated. Bilirubin [Mass/Vol] 0.4 mg/dL 0.2 - 1.3 mg/dL [facility] Calcium [Mass/Vol] 9.4 mg/dL 8.5 - 10. 2 mg/dL [facility] Chloride [Moles/Vol] 104 mmol/L 98 - 107 mmol/L [facility] CO2 [Moles/Vol] 23 mmol/L 22 - 30 mmol/L [facility] Creatinine [Mass/Vol] 0.55 mg/dL Low 0.58 - 0.96 mg/dL [facility] GFR/1.73 sq M.predicted among non-blacks MDRD (S/P/Bld) [Vol rate/Area] 115 mL/min/{1.73_m2} - PINF [facility] Comment on above: Estimated Glomerular Filtration Rate (eGFR) is calculated using the 2020 CKD-EPI creatinine equation. This equation utilizes serum creatinine, sex, and age as parameters. The creatinine assay has traceable calibration to isotope dilution-mass spectrometry. Refer to KDIGO guidelines for clinical interpretation. In patients with unstable renal function, e.g. those with acute kidney injury, the eGFR may not accurately reflect actual GFR. Glucose [Mass/Vol] 89 mg/dL 74 - 99 mg/dL [facility] Comment on above: The [place] Diabete s Association (ADA) provides guidance for cutoff values for fasting glucose and random glucose. The ADA defines fasting as no caloric intake for at least 8 hours. Fasting plasma glucose results between 100 to 125 mg/dL indicate increased risk for diabetes (prediabetes). Fasting plasma glucose results greater than or equal to 126 mg/dL meet the criteria for diagnosis of diabetes. In the absence of unequivocal hyperglycemia, results should be confirmed by repeat testing. In a patient with classic symptoms of hyperglycemia or hyperglycemic crisis, random plasma glucose results greater than or equal to 200 mg/dL meet the criteria for diagnosis of diabetes. Reference: Standards of Medical Care in Diabetes 2016, [place] Diabetes Association. Diabetes Care. 2016.39(Suppl 1). Interpretation and review of laboratory results Abnormal [facility] Potassium [Moles/Vol] 4.9 mmol/L 3.7 - 5.1 mmol/L [facility] Protein [Mass/Vol] 7.7 g/dL 6.3 - 8.0 g/dL [facility] Sodium [Moles/Vol] 138 mmol/L 136 - 144 mmol/L [facility] Urea nitrogen [Mass/Vol] 11 mg/dL 7 - 21 mg/dL [facility] Albumin [Mass/Vol] 4.3 g/dL Normal 3.9-4.9 [facility] Comment on above: Order Comment: Speci men Type: BLOOD SPECIMEN [facility] Address: [address] [place] [address] Performed By: #### 2 4323-8 #### [facility] CLIA [id number] [address] [place] [address] [place] ALP [Catalytic activity/Vol] 89 U/L Normal 34-[address] [facility] Comment on above: Order Comment: Speci men Type: BLOOD SPECIMEN [facility] Address: [address] [place] [address] Performed By: #### 2 4323-8 #### [facility] CLIA [id number] [address] [place] [address] [place] ALT [Catalytic activity/Vol] 18 U/L Normal 7-[address] [facility] Comment on above: Order Comment: Speci men Type: BLOOD SPECIMEN [facility] Address: [address] [place] [address] Performed By: #### 2 4323-8 #### [facility] CLIA [id number] [address] [place] [address] [place] Anion gap [Moles/Vol] 11 mmol/L Normal 8-15 [facility] Comment on above: Order Comment: Speci men Type: BLOOD SPECIMEN [facility] Address: [address] [place] [address] Performed By: #### 2 4323-8 #### [facility] CLIA [id number] [address] [place] [address] [place] AST [Catalytic activity/Vol] 22 U/L Normal 13-[address] [facility] Comment on above: Order Comment: Speci men Type: BLOOD SPECIMEN [facility] Address: [address] [place] [address] Result Comment: Resu lts may be falsely increased due to interference from hemolysis. Suggest reorder as clinically indicated. Performed By: #### 2 4323-8 #### [facility] CLIA [id number] [address] [place] [address] [place] Bilirubin [Mass/Vol] 0.4 mg/dL Normal 0.2-1.3 [facility] Comment on above: Order Comment: Speci men Type: BLOOD SPECIMEN [facility] Address: [address] [place] [address] Performed By: #### 2 4323-8 #### [facility] CLIA [id number] [address] [place] [address] [place] Calcium [Mass/Vol] 9.4 mg/dL Normal 8.5-10.2 [facility] Comment on above: Order Comment: Speci men Type: BLOOD SPECIMEN [facility] Address: [address] [place] [address] Performed By: #### 2 4323-8 #### [facility] CLIA [id number] [address] [place] [address] [place] Chloride [Moles/Vol] 104 mmol/L Normal 98-107 [facility] Comment on above: Order Comment: Speci men Type: BLOOD SPECIMEN [facility] Address: [address] [place] [address] Performed By: #### 2 4323-8 #### [facility] CLIA [id number] [address] [place] [address] [place] CO2 [Moles/Vol] 23 mmol/L Normal 22-[address] [facility] Comment on above: Order Comment: Speci men Type: BLOOD SPECIMEN [facility] Address: [address] [place] [address] Performed By: #### 2 4323-8 #### [facility] CLIA [id number] [address] [place] [address] [place] Creatinine [Mass/Vol] 0.55 mg/dL Low 0.58-0.96 [facility] Comment on above: Order Comment: Speci men Type: BLOOD SPECIMEN [facility] Address: [address] [place] [address] Performed By: #### 2 4323-8 #### [facility] IA [id number] [address] [place] [address] [place] Creatinine and Glomerular filtration rate.predicted panel (S/P/Bld) 115 mL/min/1.73m??? Normal >=[address] [facility] Comment on above: Order Comment: Speci men Type: BLOOD SPECIMEN [facility] Address: [address] [place] [address] Result Comment: Madhavi mated Glomerular Filtration Rate (eGFR) is calculated using the 2020 CKD-EPI creatinine equation. This equation utilizes serum creatinine, sex, and age as parameters. The creatinine assay has traceable calibration to isotope dilution-mass spectrometry. Refer to KDIGO guidelines for clinical interpretation. In patients with unstable renal function, e.g. those with acute kidney injury, the eGFR may not accurately reflect actual GFR. Performed By: #### 2 4323-8 #### [facility] CLIA [id number] [address] [place] [address] [place] Glucose [Mass/Vol] 89 mg/dL Normal 74-99 [facility] Comment on above: Order Comment: Speci men Type: BLOOD SPECIMEN [facility] Address: [address] [place] [address] Result Comment: The [place] Diabetes Association (ADA) provides guidance for cutoff values for fasting glucose and random glucose. The ADA defines fasting as no caloric intake for at least 8 hours. Fasting plasma glucose results between 100 to 125 mg/dL indicate increased risk for diabetes (prediabetes). Fasting plasma glucose results greater than or equal to 126 mg/dL meet the criteria for diagnosis of diabetes. In the absence of unequivocal hyperglycemia, results should be confirmed by repeat testing. In a patient with classic symptoms of hyperglycemia or hyperglycemic crisis, random plasma glucose results greater than or equal to 200 mg/dL meet the criteria for diagnosis of diabetes. Reference: Standards of Medical Care in Diabetes 2016, [place] Diabetes Association. Diabetes Care. 2016.39(Suppl 1). Performed By: #### 2 4323-8 #### [facility] CLIA [id number] [address] [place] [address] [place] Potassium [Moles/Vol] 4.9 mmol/L Normal 3.7-5.1 [facility] Comment on above: Order Comment: Speci men Type: BLOOD SPECIMEN [facility] Address: [address] [place] [address] Performed By: #### 2 4323-8 #### [facility] CLIA [id number] [address] [place] [address] [place] Protein [Mass/Vol] 7.7 g/dL Normal 6.3-8.0 [facility] Comment on above: Order Comment: Speci men Type: BLOOD SPECIMEN [facility] Address: [address] [place] [address] Performed By: #### 2 4323-8 #### [facility] CLIA [id number] [address] [place] [address] [place] Sodium [Moles/Vol] 138 mmol/L Normal 136-144 [facility] Comment on above: Order Comment: Speci men Type: BLOOD SPECIMEN [facility]ing [facility] Address: [address] [place] [address] Performed By: #### 2 4323-8 #### [facility] CLIA [id number] [address] [place] [address] [place] Urea nitrogen [Mass/Vol] 11 mg/dL Normal 7-[address] [facility] Comment on above: Order Comment: Speci men Type: BLOOD SPECIMEN [facility] Address: [address] [place] [address] Performed By: #### 2 4323-8 #### [facility] CLIA [id number] [address] [place] [address] [place] THYROID PEROXIDASE ANTIBODYo n 12-03-2023 Interpretation and review of laboratory results Normal [facility] TPO Ab Qn NINF [facility] Comment on above: Thyroid Peroxidase A ntibody test is used as an aid in diagnosis of autoimmune thyroid disease. Clinical correlation is required. [facility] TPO Ab Qn [IU]/mL Normal <5.[address] [facility] Comment on above: Order Comment: Albaro ayers Type: BLOOD SPECIMEN [facility] Address: [address] [place] [address] Result Comment: Thyr oid Peroxidase Antibody test is used as an aid in diagnosis of autoimmune thyroid disease. Clinical correlation is required. Performed By: #### 5 195-3, 61147-6, 14618-5 #### [facility] CLIA [id number] [address] [place] [address] [place] CBC W Auto Differential pane l (Bld)on 11-26-2023 Basophils (Bld) [#/Vol] 0.06 10*3/uL Normal <0.[address] [facility] Comment on above: Order Comment: Albaro ayers Type: BLOOD SPECIMEN [facility] Address: [address] [place] [address] Performed By: #### 5 195-3, 36299-6, 32757-0 #### [facility] CLIA [id number] [address] [place], [place] [address] [place] Basophils/100 WBC (Bld) 0.5 % Normal [facility] Comment on above: Order Comment: Speci men Type: BLOOD SPECIMEN Ordering Facility: [facility] Address: [address] [place] [address] Performed By: #### 5 195-3, 09391-9, 00457-8 #### [facility] CLIA [id number] [address] [place] [address] [place] Differential cell count method Nom (Bld) Auto Normal [facility] Comment on above: Order Comment: Speci men Type: BLOOD SPECIMEN Ordering Facility: [facility] Address: [address] [place] [address] Performed By: #### 5 195-3, 82913-1, 84479-9 #### [facility] CLIA [id number] [address] [place] [address] [place] Eosinophils (Bld) [#/Vol] 0.06 10*3/uL Normal <0.[address] [facility] Comment on above: Order Comment: Speci men Type: BLOOD SPECIMEN Ordering Facility: [facility] Address: [address] [place] [address] Performed By: #### 5 195-3, 06938-9, 56120-1 #### [facility] CLIA [id number] [address] [place] [address] [place] Eosinophils/100 WBC (Bld) 0.5 % Normal [facility] Comment on above: Order Comment: Speci men Type: BLOOD SPECIMEN Ordering Facility: [facility] Address: [address] [place] [address] Performed By: #### 5 195-3, 14089-5, 93017-6 #### [facility] CLIA [id number] [address] [place] [address] [place] Erythrocyte distribution width (RBC) [Ratio] 14.3 % Normal 11.5-15.[address] [facility] Comment on above: Order Comment: Speci men Type: BLOOD SPECIMEN Ordering Facility: [facility] Address: [address] [place] [address] Performed By: #### 5 195-3, 77106-2, 23935-1 #### [facility] CLIA [id number] [address] [place] [address] [place] Hematocrit (Bld) [Volume fraction] 45.6 % Normal 36.0-46.[address] [facility] Comment on above: Order Comment: Speci men Type: BLOOD SPECIMEN Ordering Facility: [facility] Address: [address] [place] [address] Performed By: #### 5 195-3, 37909-5, 75683-8 #### [facility] CLIA [id number] [address] [place] [address] [place] Hemoglobin (Bld) [Mass/Vol] 14.4 g/dL Normal 11.5-15.[address] [facility] Comment on above: Order Comment: Speci men Type: BLOOD SPECIMEN Ordering Facility: [facility] Address: [address] [place] [address] Performed By: #### 5 195-3, 63549-0, 80182-2 #### [facility] CLIA [id number] [address] [place] [address] [place] Immature granulocytes (Bld) [#/Vol] 0.03 10*3/uL Normal <0.[address] [facility] Comment on above: Order Comment: Speci men Type: BLOOD SPECIMEN Ordering Facility: [facility] Address: [address] [place] [address] Performed By: #### 5 195-3, 11586-5, 45192-4 #### [facility] CLIA [id number] [address] [place] [address] [place] Immature granulocytes/100 WBC (Bld) 0.2 % Normal [facility] Comment on above: Order Comment: Speci men Type: BLOOD SPECIMEN Ordering Facility: [facility] Address: [address] [place] [address] Performed By: #### 5 195-3, 84663-7, 82529-7 #### [facility] CLIA [id number] [address] [place] [address] [place] Lymphocytes (Bld) [#/Vol] 3.51 10*3/uL Normal 1.00-4.[address] [facility] Comment on above: Order Comment: Speci men Type: BLOOD SPECIMEN Ordering Facility: [facility] Address: [address] [place] [address] Performed By: #### 5 195-3, 09153-4, 45462-5 #### [facility] CLIA [id number] [address] [place] [address] [place] Lymphocytes/100 WBC (Bld) 28.8 % Normal [facility] Comment on above: Order Comment: Speci men Type: BLOOD SPECIMEN Ordering Facility: [facility] Address: [address] [place] [address] Performed By: #### 5 195-3, 08577-9, 36245-9 #### [facility] CLIA [id number] [address] [place] [address] [place] MCH (RBC) [Entitic mass] 27.5 pg Normal 26.0-34.[address] [facility] Comment on above: Order Comment: Speci men Type: BLOOD SPECIMEN Ordering Facility: [facility] Address: [address] [place] [address] Performed By: #### 5 195-3, 00323-5, 60268-5 #### [facility] CLIA [id number] [address] [place] [address] [place] MCHC (RBC) [Mass/Vol] 31.6 g/dL Normal 30.5-36.0 [facility] Comment on above: Order Comment: Speci men Type: BLOOD SPECIMEN Ordering Facility: [facility] Address: [address] [place] [address] Performed By: #### 5 195-3, 31938-4, 48438-9 #### [facility] CLIA [id number] [address] [place] [address] [place] MCV (RBC) [Entitic vol] 87.2 fL Normal 80.0-100.[address] [facility] Comment on above: Order Comment: Speci men Type: BLOOD SPECIMEN Ordering Facility: [facility] Address: [address] [place] [address] Performed By: #### 5 195-3, 33017-1, 27744-3 #### [facility] CLIA [id number] [address] [place] [address] [place] Monocytes (Bld) [#/Vol] 0.62 10*3/uL Normal <0.[address] [facility] Comment on above: Order Comment: Speci men Type: BLOOD SPECIMEN Ordering Facility: [facility] Address: [address] [place] [address] Performed By: #### 5 195-3, 04153-8, 24602-5 #### [facility] CLIA [id number] [address] [place] [address] [place] Monocytes/100 WBC (Bld) 5.1 % Normal [facility] Comment on above: Order Comment: Speci men Type: BLOOD SPECIMEN Ordering Facility: [facility] Address: [address] [place] [address] Performed By: #### 5 195-3, 51568-7, 85628-2 #### [facility] CLIA [id number] [address] [place] [address] [place] Neutrophils (Bld) [#/Vol] 7.90 10*3/uL High 1.45-7.[address] [facility] Comment on above: Order Comment: Speci men Type: BLOOD SPECIMEN Ordering Facility: [facility] Address: [address] [place] [address] Performed By: #### 5 195-3, 19285-5, 49072-1 #### [facility] CLIA [id number] [address] [place] [address] [place] Neutrophils/100 WBC (Bld) 64.9 % Normal [facility] Comment on above: Order Comment: Speci men Type: BLOOD SPECIMEN Ordering Facility: [facility] Address: [address] [place] [address] Performed By: #### 5 195-3, 47435-0, 48773-5 #### [facility] CLIA [id number] [address] [place] [address] [place] Nucleated RBC (Bld) [#/Vol] 10*3/uL Normal <0.[address] [facility] Comment on above: Order Comment: Speci men Type: BLOOD SPECIMEN Ordering Facility: [facility] Address: [address] [place] [address] Performed By: #### 5 195-3, 88013-2, 95256-2 #### [facility] CLIA [id number] [address] [place] [address] [place] Nucleated RBC/100 WBC (Bld) [Ratio] 0.0 /100 WBC Normal [facility] Comment on above: Order Comment: Speci men Type: BLOOD SPECIMEN Ordering Facility: [facility] Address: [address] [place] [address] Performed By: #### 5 195-3, 81764-1, 30698-8 #### [facility] CLIA [id number] [address] [place] [address] [place] Platelet mean volume (Bld) [Entitic vol] 11.6 fL Normal 9.0-12.[address] [facility] Comment on above: Order Comment: Speci men Type: BLOOD SPECIMEN Ordering Facility: [facility] Address: [address] [place] [address] Performed By: #### 5 195-3, 12630-8, 59507-2 #### [facility] CLIA [id number] [address] [place] [address] [place] Platelets (Bld) [#/Vol] 284 10*3/uL Normal 150-[address] [facility] Comment on above: Order Comment: Speci men Type: BLOOD SPECIMEN Ordering Facility: [facility] Address: [address] [place] [address] Performed By: #### 5 195-3, 82941-0, 71531-6 #### [facility] CLIA [id number] [address] [place] [address] [place] RBC (Bld) [#/Vol] 5.23 10*6/uL High 3.90-5.20 [facility] Comment on above: Order Comment: Speci men Type: BLOOD SPECIMEN Ordering Facility: [facility] Address: [address] [place] [address] Performed By: #### 5 195-3, 27470-0, 49457-1 #### [facility] CLIA [id number] [address] [place] [address] [place] WBC (Bld) [#/Vol] 12.18 10*3/uL High 3.70-11.00 [facility] Comment on above: Order Comment: Speci men Type: BLOOD SPECIMEN Ordering Facility: [facility] Address: [address] [place] [address] Performed By: #### 5 195-3, 92461-6, 39719-0 #### [facility] CLIA [id number] [address] [place] [address] [place] CNOVon 11-26-2023 CNOV Office Visit (NEADMN ) LYNDON BURROUGHS ([id number]) 1980 F Date Time Provider Department 11/26/23 10:00 AM IGOR BLAIR During your visit today, we recorded the following information about you: Pulse Blood pressure Weight Height 96/minute 140/89 123.3 kg 1.676 m Igor Blair, CERAMIC ENGINEER.CHROME CLEANER 11/26/2023 2:09 PM Addendum [facility] for General Neurology New Patient Evaluation Consultation requested by Dr. King for an opinion regarding POTS. My final recommendations will be communicated back to the requesting physician by way of shared Medical record or letter to requesting physician via [place] mail. Chief Complaint/Issues: Lyndon Burroguhs is a 43 year old right handed female. New patient POTS HPI: Saw pain management provider, in the office she stood up and almost fell over, said this happens a lot since childhood. States her child has POTS, sister has POTS, mother may have had POTS. Has had no prior workup done. As a kid, developed symptoms of orthostatic dizziness and imbalance, which were not daily but would occur with heat and during gym class/exertion. Symptoms currently occur daily, multiple times per day. Typically, events last 30-60 seconds, but are worsened by stress/anxiety, lack of PO intake, or warm temperatures (which may cause episodes to last as long as 5-10 minutes). Endorses feeling tired and drained after episodes. Upon standing, feels dizzy (described as room spinning), lightheaded, and sometimes sees spots. Heart races, diaphoretic, face gets warm, feels as though she is having an anxiety attack. Has palpitations, but denies SOB or CP. Has never passed out,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 symptoms. All available outside records have been reviewed. REVIEW OF SYSTEMS: Constitutional: patient denies any recent fever or significant change in weight Cardiovascular: patient denies any chest pain at rest Respiratory: patient denies any shortness of breath or cough Gastrointestinal: patient denies any current abdominal discomfort Integumentary: patient denies any recent skin changes Musculoskeletal: as noted in the HPI Neurologic: as noted in the HPI Endocrine: patient denies a current diagnosis of diabetes Hematologic/Lymphatic : patient denies any easily bleeding, any recent infection and denies any recent observable lymph node enlargement Psychologic: negative for any recent depression or anxiety issues FAMILY HISTORY Problem Relation Age of Onset Psychiatry Mother DEPRESSION,SUICIDAL IDEATION Cancer Mother cancer in the appendix Leukemia Mother Hypertension Father Heart Father OK Psychiatry Father DEPRESSION, bipolar COPD Father smoked from age 12 other (CHF) Father Diabetes Sister Depression Sister other (HTN) Sister Depression Brother other (htn) Brother Diabetes Brother Bipolar disorder Brother Psychiatry Brother Schizoaffective Alcohol/Drug Maternal Grandmother ALCOHOLIC Alzheimer's Disease Maternal Grandmother Arthritis Maternal Grandmother Colon Cancer Maternal Grandmother Psychiatry Maternal Grandmother Alcohol/Drug Maternal Grandfather ALCOHOLIC Stroke Maternal Grandfather Alcohol/Drug Paternal Grandmother ALCOHOLIC Heart Paternal Grandmother CHF Alcohol/Drug Paternal Grandfather ALCOHOLIC Heart Paternal Grandfather OK Stroke Paternal Grandfather Alzheimer's Disease Paternal Grandfather Diabetes Maternal Uncle Colon Cancer Maternal Uncle Cancer Maternal Uncle pancreatic cancer Breast Cancer Paternal Aunt Diabetes Paternal Aunt PAUNT X 5 Diabetes Paternal Uncle Autism Other Anxiety disorder Other Tourette syndrome Other PAST MEDICAL HISTORY Diagnosis Date ASCUS with positive high risk HPV cervical 05/2017 Mood disorder (HCC) counseling center Myopia, bilateral 12/23/2017 Obsessive-compulsive disorders Other specified anemias PMH - PAST MEDICAL HISTORY OF HIATAL HERNIA Psychosis (HCC) Dr. Rocha at [facility] PAST SURGICAL HISTORY Procedure Laterality Date ENDOSCOPY PROC ALLERGIES Allergen Reactions Latex Tomatoes Problem List: reviewed and updated. Contributory Co-morbidities: Assessed as indicated; currently managed. Social History: Social History Tobacco Use Smoking status: Never Smokeless tobacco: Never Vaping Use Vaping Use: Never used Substance Use Topics Alcohol use: No Drug use: No Current Outpatient Medications Medication Sig metroNIDAZOLE (METROGEL) 0.75 % Topical Gel Apply to affected skin face twice daily cyclobenzaprine (FLEXERIL) 10 mg tablet Take 1 tablet by mouth at bedtime as needed for muscle spasm or pain. buPROPion XL (WELLBUTRIN XL) 150 mg 24 hr tablet Take 1 tablet by mouth once daily. Norethindrone, Contraceptive, (ORTHO MICRONOR) 0.35 mg tablet Take 1 tablet by mouth once daily. ketoconazole (NIZORAL) 2 % shampoo Apply 1 application to affected area two times a week. diclofenac, EC, (VOLTAREN) 75 mg EC tablet TAKE 1 TABLET BY MOUTH TWICE DAILY FOR PAIN MULTIVITAMIN ORAL Take by mouth once daily. LORazepam (ATIVAN) 0.5 mg Take 0.5 mg by mouth as needed. PHFROWH-IPMC-AYGUF-OR EG-CAPRYL ORAL Take by mouth once daily. biotin/calcium carbonate (BIOTIN 100+10 ORAL) Take by mouth once daily. Cholecalciferol, Vitamin D3, 5,000 unit tab Take 1 tablet by mouth once d (more content not included)... Normal [facility] Large Joint Arthro/Inj: L zimmerman bacromial bursaon 07-17-2023 Rosie Ratliff PA-C 07/17/2023 11:20 AM Large Joint Arthro/Inj: L subacromial bursa Informed Consent Consent Obtained: Verbal Waterfall Protocol A moment to CARE was completed. SIGN IN Personnel directly involved with the procedure wore the appropriate PPE. Special Equipment: N/A Patient/Surrogate Stated/Verified: Patient name, Date of , Relevant allergies and Intended procedure TIME OUT Intended patient and procedure match the source document(s). Consent documented and matches the intended procedure. Relevant labs, photos, and/or imaging studies have been reviewed. Correct side/site marked and visible. Medications required for procedure verified. No fire risk assessment and interventions applicable. No implant(s) inserted. 07/17/2023 11:00 AM The procedure site was prepped in the usual sterile fashion. Site: L subacromial bursa Medications: 40 mg triamcinolone acetonide 40 mg/mL Anesthetics: 4 mL lidocaine (PF) 10 mg/mL (1 %) Outcome: Tolerated well, no immediate complications Post-injection instructions were reviewed with the patient and the patient voiced understanding of these instructions. SIGN OUT All instruments, equipment, possible retained foreign bodies accounted for. [facility] CNOVon 07-15-2023 CNOV Office Visit (DERMIN ) LYNDON BURROUGHS ([id number]) 1980 F Date Time Provider Department 07/15/23 10:45 AM VANCE GRAY DERMIN During your visit today, we recorded the following information about you: Vance Gray MD 07/15/2023 11:13 AM Signed CHIEF COMPLAINT: Patient presents with: Rosacea : no Last menstrual period: 06-21-2023 Last Dermatology Visit: new REFERRAL: Consultation requested by Kae Lennon PA-C for an opinoin regarding the evaluation and treatment of Rosacea [L71.9 (ICD-10-CM)] . My final recommendations will be communicated back to the requesting physician by way of shared medical record or letter via US mail. RELEVANT DERMATOLOGY HISTORY: Personal Hx of skin cancer: no Personal Hx of atypical moles: no Family Hx of malignant melanoma: no Antibiotics before dental or other procedures: yes Artificial joints: no Pacemaker: no Anticoagulants: no DERMATOLOGY PROGRESS NOTE HISTORY: Lyndon Burroughs is a 42 year old female who presents with CC/HPI: Chief Complaint Rosacea Location Right cheek Duration 10 years Timing constant Severity mild Quality Red spot Modifying Factors: No prior tx Has sens skin Sunscreen breaks her out PAST MEDICAL HISTORY: PAST MEDICAL HISTORY Diagnosis Date ASCUS with positive high risk HPV cervical 05/2017 Mood disorder (HCC) counseling center Myopia, bilateral 12/23/2017 Obsessive-compulsive disorders Other specified anemias PMH - PAST MEDICAL HISTORY OF HIATAL HERNIA Psychosis (HCC) Dr. Rocha at 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 buPROPion XL (WELLBUTRIN XL) 150 mg 24 hr tablet Take 1 tablet by mouth once daily. Norethindrone, Contraceptive, (ORTHO MICRONOR) 0.35 mg tablet Take 1 tablet by mouth once daily. ketoconazole (NIZORAL) 2 % shampoo Apply 1 application to affected area two times a week. diclofenac, EC, (VOLTAREN) 75 mg EC tablet TAKE 1 TABLET BY MOUTH TWICE DAILY FOR PAIN (Patient not taking: Reported on 04/03/2023) MULTIVITAMIN ORAL Take by mouth once daily. LORazepam (ATIVAN) 0.5 mg Take 0.5 mg by mouth as needed. [id number]-LPFLN-OR EG-CAPRYL ORAL Take by mouth once daily. biotin/calcium carbonate (BIOTIN 100+10 ORAL) Take by mouth once daily. Cholecalciferol, Vitamin D3, 5,000 unit tab Take 1 tablet by mouth once daily. No current facility-administered medications for this visit. 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 No dyspnea, chest pain, abdominal pain, dysuria. All other review of systems is negative FAMILY MEDICAL HISTORY: FAMILY HISTORY Problem Relation Age of Onset Psychiatry Mother DEPRESSION,SUICIDAL IDEATION Cancer Mother cancer in the appendix Leukemia Mother Hypertension Father Heart Father OK Psychiatry Father DEPRESSION, bipolar COPD Father smoked from age 12 other (CHF) Father Diabetes Sister Depression Sister other (HTN) Sister Depression Brother other (htn) Brother Diabetes Brother Bipolar disorder Brother Psychiatry Brother Schizoaffective Alcohol/Drug Maternal Grandmother ALCOHOLIC Alzheimer's Disease Maternal Grandmother Arthritis Maternal Grandmother Colon Cancer Maternal Grandmother Psychiatry Maternal Grandmother Alcohol/Drug Maternal Grandfather ALCOHOLIC Stroke Maternal Grandfather Alcohol/Drug Paternal Grandmother ALCOHOLIC Heart Paternal Grandmother CHF Alcohol/Drug Paternal Grandfather ALCOHOLIC Heart Paternal Grandfather OK Stroke Paternal Grandfather Alzheimer's Disease Paternal Grandfather Diabetes Maternal Uncle Colon Cancer Maternal Uncle Cancer Maternal Uncle pancreatic cancer Breast Cancer Paternal Aunt Diabetes Paternal Aunt PAUNT X 5 Diabetes Paternal Uncle Autism Other Anxiety disorder Other Tourette syndrome Other SOCIAL HISTORY: Social History Tobacco Use Smoking status: Never Smokeless tobacco: Never Vaping Use Vaping Use: Never used Substance Use Topics Alcohol use: No Drug use: No PHYSICAL EXAMINATION: GENERAL: Patient is a well appearing, well nourished, and pleasant, female alert a (more content not included)... Normal [facility] XR Shoulder - left 3 Viewson 06-26-2023 IMPRESSION: Acromioclavicular joint space narrowing likely degenerative. 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: [id number] Transcribe Date/Time: Jun 26 2023 11:29A Dictated by : CHOLO MILLER MD This examination was interpreted and the report reviewed and electronically signed by: CHOLO MILLER MD on Jun 26 2023 11:31AM [facility] DIVISION OF RADIOLOGY * * *Final Report* * * DATE OF EXAM: Jun 26 2023 11:12AM WOX [id number] - XR SHLDR >/=3V AP/NABIL AP/OTHR LT / PROCEDURE REASON: Acute pain of left shoulder * * * * Physician Interpretation * * * * EXAM TITLE: XR SHLDR >/=3V AP/NABIL AP/OTHR LT EXAM DATE/TIME: 06/26/2023 11:12 AM COMPARISON: None. CLINICAL INDICATION/HISTORY: Acute left shoulder pain TECHNIQUE: AP, true AP and axillary views of the left shoulder are presented FINDINGS: No acute fractures or subluxations are noted. Acromioclavicular joint space narrowing is demonstrated, without obvious osteophyte formation. The glenohumeral joint appears unremarkable. Normal acromiohumeral interval. The mineralization of the bones is normal. There is no significant soft tissue swelling. DIVISION OF RADIOLOGY Provider, Susan Ingrid [facility] - 06/26/2023 * * *Final Report* * * DATE OF EXAM: Jun 26 2023 11:12AM WOX [id number] - XR SHLDR >/=3V AP/NABIL AP/OTHR LT / PROCEDURE REASON: Acute pain of left shoulder * * * * Physician Interpretation * * * * EXAM TITLE: XR SHLDR >/=3V AP/NABIL AP/OTHR LT EXAM DATE/TIME: 06/26/2023 11:12 AM COMPARISON: None. CLINICAL INDICATION/HISTORY: Acute left shoulder pain TECHNIQUE: AP, true AP and axillary views of the left shoulder are presented FINDINGS: No acute fractures or subluxations are noted. Acromioclavicular joint space narrowing is demonstrated, without obvious osteophyte formation. The glenohumeral joint appears unremarkable. Normal acromiohumeral interval. The mineralization of the bones is normal. There is no significant soft tissue swelling. IMPRESSION IMPRESSION: Acromioclavicular joint space narrowing likely degenerative. 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: [email or web address] Transcribe Date/Time: Jun 26 2023 11:29A Dictated by : CHOLO MILLER MD This examination was interpreted and the report reviewed and electronically signed by: CHOLO MILLER MD on Jun 26 2023 11:31AM EST [facility] Radiology Study observation (narrative) [facility] XR Shoulder - left 3 ViewsOr dered By: [facility] Provider on 06-26-2023 [facility] MG Breast Screeningon 2023 [facility] [facility] No Panel Informationon 03-29 [facility] XR HIP BILATERAL 5V PEL/AP/L AT EACH HIPon 03-29-2023 * * *Final Report* * * DATE OF EXAM: Mar 27 2023 10:26AM WOX [id number] - XR HIP JEANMARIE 5V PEL+ AP/LAT EA HIP / PROCEDURE REASON: Diffuse pain * * * * Physician Interpretation * * * * PROCEDURE: Bilateral knees, pelvis and bilateral hips and SI joints INDICATION: Diffuse pain .checking for arthritis vs. autoimmune dis. Has had pain in entire body for many years. No inj TECHNIQUE: XR KNEE 4V AP/PA/LAT/MERCH JEANMARIE, XR HIP JEANMARIE 5V PEL+ AP/LAT EA HIP, XR SI JTS 2V AP PELV/MAJOR COMPARISON: Bilateral knees 08/06/2020 FINDINGS: Bilateral knees: Significant medial and moderate patellofemoral joint compartment narrowing with tricompartment spur formation bilaterally, greater than previous. No fracture, erosion or joint effusion. Pelvis, bilateral hips and SI joints: Minimal bilateral hip osteoarthrosis with minimal acetabular and femoral collar spur formation. Slight superior joint space narrowing. Femoral heads are smooth. Sacroiliac joints appear normal bilaterally. No erosions or ankylosis. Spina bifida occulta of L5. Soft tissues are unremarkable. DIVISION OF RADIOLOGY Provider, [facility] Ingrid [facility] - 03/29/2023 * * *Final Report* * * DATE OF EXAM: Mar 27 2023 10:26AM WOX [id number] - XR HIP JEANMARIE 5V PEL+ AP/LAT EA HIP / PROCEDURE REASON: Diffuse pain * * * * Physician Interpretation * * * * PROCEDURE: Bilateral knees, pelvis and bilateral hips and SI joints INDICATION: Diffuse pain .checking for arthritis vs. autoimmune dis. Has had pain in entire body for many years. No inj TECHNIQUE: XR KNEE 4V AP/PA/LAT/MERCH JEAMNARIE, XR HIP JEANMARIE 5V PEL+ AP/LAT EA HIP, XR SI JTS 2V AP PELV/MAJOR COMPARISON: Bilateral knees 08/06/2020 FINDINGS: Bilateral knees: Significant medial and moderate patellofemoral joint compartment narrowing with tricompartment spur formation bilaterally, greater than previous. No fracture, erosion or joint effusion. Pelvis, bilateral hips and SI joints: Minimal bilateral hip osteoarthrosis with minimal acetabular and femoral collar spur formation. Slight superior joint space narrowing. Femoral heads are smooth. Sacroiliac joints appear normal bilaterally. No erosions or ankylosis. Spina bifida occulta of L5. Soft tissues are unremarkable. IMPRESSION IMPRESSION: 1. Progressive advanced bilateral knee osteoarthrosis 2. Minimal bilateral hip osteoarthrosis 3. Unremarkable SI joints 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: [facility] Transcribe Date/Time: Mar 29 2023 9:32A Dictated by : GABY COLEMAN MD This examination was interpreted and the report reviewed and electronically signed by: GABY COLEMAN MD on Mar 29 2023 9:35AM [facility] XR Knee - bilateral 4 Viewso n 03-29-2023 * * *Final Report* * * DATE OF EXAM: Mar 27 2023 10:26AM WOX [id number] - XR KNEE 4V AP/PA/LAT/MERCH JEANMARIE / PROCEDURE REASON: Diffuse pain * * * * Physician Interpretation * * * * PROCEDURE: Bilateral knees, pelvis and bilateral hips and SI joints INDICATION: Diffuse pain .checking for arthritis vs. autoimmune dis. Has had pain in entire body for many years. No inj TECHNIQUE: XR KNEE 4V AP/PA/LAT/MERCH JEANMARIE, XR HIP JEANMARIE 5V PEL+ AP/LAT EA HIP, XR SI JTS 2V AP PELV/MAJOR COMPARISON: Bilateral knees 08/06/2020 FINDINGS: Bilateral knees: Significant medial and moderate patellofemoral joint compartment narrowing with tricompartment spur formation bilaterally, greater than previous. No fracture, erosion or joint effusion. Pelvis, bilateral hips and SI joints: Minimal bilateral hip osteoarthrosis with minimal acetabular and femoral collar spur formation. Slight superior joint space narrowing. Femoral heads are smooth. Sacroiliac joints appear normal bilaterally. No erosions or ankylosis. Spina bifida occulta of L5. Soft tissues are unremarkable. DIVISION OF RADIOLOGY Provider, [facility] - 03/29/2023 * * *Final Report* * * DATE OF EXAM: Mar 27 2023 10:26AM WOX [id number] - XR KNEE 4V AP/PA/LAT/MERCH JEANMARIE / PROCEDURE REASON: Diffuse pain * * * * Physician Interpretation * * * * PROCEDURE: Bilateral knees, pelvis and bilateral hips and SI joints INDICATION: Diffuse pain .checking for arthritis vs. autoimmune dis. Has had pain in entire body for many years. No inj TECHNIQUE: XR KNEE 4V AP/PA/LAT/MERCH JEANMARIE, XR HIP JEANMARIE 5V PEL+ AP/LAT EA HIP, XR SI JTS 2V AP PELV/MAJOR COMPARISON: Bilateral knees 08/06/2020 FINDINGS: Bilateral knees: Significant medial and moderate patellofemoral joint compartment narrowing with tricompartment spur formation bilaterally, greater than previous. No fracture, erosion or joint effusion. Pelvis, bilateral hips and SI joints: Minimal bilateral hip osteoarthrosis with minimal acetabular and femoral collar spur formation. Slight superior joint space narrowing. Femoral heads are smooth. Sacroiliac joints appear normal bilaterally. No erosions or ankylosis. Spina bifida occulta of L5. Soft tissues are unremarkable. IMPRESSION IMPRESSION: 1. Progressive advanced bilateral knee osteoarthrosis 2. Minimal bilateral hip osteoarthrosis 3. Unremarkable SI joints 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: [email or web address] Transcribe Date/Time: Mar 29 2023 9:32A Dictated by : GABY COLEMAN MD This examination was interpreted and the report reviewed and electronically signed by: GABY COLEMAN MD on Mar 29 2023 9:35AM [facility] XR Sacroiliac Joint Viewson 03-29-2023 * * *Final Report* * * DATE OF EXAM: Mar 27 2023 10:26AM WOX [id number] - XR SI JTS 2V AP PELV/MAJOR / PROCEDURE REASON: multiple diagnoses * * * * Physician Interpretation * * * * PROCEDURE: Bilateral knees, pelvis and bilateral hips and SI joints INDICATION: Diffuse pain .checking for arthritis vs. autoimmune dis. Has had pain in entire body for many years. No inj TECHNIQUE: XR KNEE 4V AP/PA/LAT/MERCH JEANMARIE, XR HIP JEANMARIE 5V PEL+ AP/LAT EA HIP, XR SI JTS 2V AP PELV/MAJOR COMPARISON: Bilateral knees 08/06/2020 FINDINGS: Bilateral knees: Significant medial and moderate patellofemoral joint compartment narrowing with tricompartment spur formation bilaterally, greater than previous. No fracture, erosion or joint effusion. Pelvis, bilateral hips and SI joints: Minimal bilateral hip osteoarthrosis with minimal acetabular and femoral collar spur formation. Slight superior joint space narrowing. Femoral heads are smooth. Sacroiliac joints appear normal bilaterally. No erosions or ankylosis. Spina bifida occulta of L5. Soft tissues are unremarkable. DIVISION OF RADIOLOGY Provider, [facility] - 03/29/2023 * * *Final Report* * * DATE OF EXAM: Mar 27 2023 10:26AM WOX [id number] - XR SI JTS 2V AP PELV/MAJOR / PROCEDURE REASON: multiple diagnoses * * * * Physician Interpretation * * * * PROCEDURE: Bilateral knees, pelvis and bilateral hips and SI joints INDICATION: Diffuse pain .checking for arthritis vs. autoimmune dis. Has had pain in entire body for many years. No inj TECHNIQUE: XR KNEE 4V AP/PA/LAT/MERCH JEANMARIE, XR HIP JEANMARIE 5V PEL+ AP/LAT EA HIP, XR SI JTS 2V AP PELV/MAJOR COMPARISON: Bilateral knees 08/06/2020 FINDINGS: Bilateral knees: Significant medial and moderate patellofemoral joint compartment narrowing with tricompartment spur formation bilaterally, greater than previous. No fracture, erosion or joint effusion. Pelvis, bilateral hips and SI joints: Minimal bilateral hip osteoarthrosis with minimal acetabular and femoral collar spur formation. Slight superior joint space narrowing. Femoral heads are smooth. Sacroiliac joints appear normal bilaterally. No erosions or ankylosis. Spina bifida occulta of L5. Soft tissues are unremarkable. IMPRESSION IMPRESSION: 1. Progressive advanced bilateral knee osteoarthrosis 2. Minimal bilateral hip osteoarthrosis 3. Unremarkable SI joints 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: [facility] Transcribe Date/Time: Mar 29 2023 9:32A Dictated by : GABY COLEMAN MD This examination was interpreted and the report reviewed and electronically signed by: GABY COLEMAN MD on Mar 29 2023 9:35AM [facility] No Panel Informationon 03-27 Radiology Study observation (narrative) [facility] XR Cervical spine 2 or 3 vie ws and (Views W flexion and W extension)on 03-27-2023 IMPRESSION: Unremarkable cervical spine X-ray. 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: [facility] Transcribe Date/Time: Mar 27 2023 4:24P Dictated by : CHOLO MILLER MD This examination was interpreted and the report reviewed and electronically signed by: CHOLO MILLER MD on Mar 27 2023 4:25PM [facility] DIVISION OF RADIOLOGY * * *Final Report* * * DATE OF EXAM: Mar 27 2023 10:26AM WOX [id number] - XR CERVICAL 2V FLEX/EXT / PROCEDURE REASON: Diffuse pain * * * * Physician Interpretation * * * * EXAM TITLE: XR CERVICAL 2V FLEX/EXT EXAM DATE/TIME: 03/27/2023 10:26 AM COMPARISON: None. CLINICAL INDICATION/HISTORY: Pain TECHNIQUE: Lateral extension and lateral flexion views of the cervical spine are presented. FINDINGS: No acute fractures or subluxations are noted along the lateral projections. No change in alignment of the cervical spine with lateral extension and lateral flexion. The disc spaces are well preserved. There is no significant osteophyte formation. The prevertebral soft tissues are normal. DIVISION OF RADIOLOGY Provider, [facility] - 03/27/2023 * * *Final Report* * * DATE OF EXAM: Mar 27 2023 10:26AM WOX [id number] - XR CERVICAL 2V FLEX/EXT / PROCEDURE REASON: Diffuse pain * * * * Physician Interpretation * * * * EXAM TITLE: XR CERVICAL 2V FLEX/EXT EXAM DATE/TIME: 03/27/2023 10:26 AM COMPARISON: None. CLINICAL INDICATION/HISTORY: Pain TECHNIQUE: Lateral extension and lateral flexion views of the cervical spine are presented. FINDINGS: No acute fractures or subluxations are noted along the lateral projections. No change in alignment of the cervical spine with lateral extension and lateral flexion. The disc spaces are well preserved. There is no significant osteophyte formation. The prevertebral soft tissues are normal. IMPRESSION IMPRESSION: Unremarkable cervical spine X-ray. 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: [email or web address] Transcribe Date/Time: Mar 27 2023 4:24P Dictated by : CHOLO MILLRE MD This examination was interpreted and the report reviewed and electronically signed by: CHOLO MILLER MD on Mar 27 2023 4:25PM [facility] XR Lumbar spine AP and Later al and obliqueon 03-27-2023 IMPRESSION: Lumbar spine degenerative changes with L5-S1 disc space narrowing. 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: [facility] Transcribe Date/Time: Mar 27 2023 10:51A Dictated by : CHOLO MILLER MD This examination was interpreted and the report reviewed and electronically signed by: CHOLO MILLER MD on Mar 27 2023 10:52AM [facility] DIVISION OF RADIOLOGY * * *Final Report* * * DATE OF EXAM: Mar 27 2023 10:26AM WOX [id number] - XR LUMBAR PARS 4V AP/LAT/OBL X2 / PROCEDURE REASON: multiple diagnoses * * * * Physician Interpretation * * * * EXAM TITLE: XR LUMBAR PARS 4V AP/LAT/OBL X2 EXAM DATE/TIME: 03/27/2023 10:26 AM COMPARISON: X-ray lumbar spine on 06/16/2018 CLINICAL INDICATION/HISTORY: Low back pain. TECHNIQUE: AP, lateral, oblique and cone down lateral views of the lumbar spine are presented. FINDINGS: There are five [id number] lumbar vertebrae. No fracture or subluxations are noted. There is L5-S1 disc space narrowing. There is mild osteophyte formation. Facet arthrosis seen in the lower lumbar spine. DIVISION OF RADIOLOGY Provider, Jamia Simpson - 03/27/2023 * * *Final Report* * * DATE OF EXAM: Mar 27 2023 10:26AM WOX [id number] - XR LUMBAR PARS 4V AP/LAT/OBL X2 / PROCEDURE REASON: multiple diagnoses * * * * Physician Interpretation * * * * EXAM TITLE: XR LUMBAR PARS 4V AP/LAT/OBL X2 EXAM DATE/TIME: 03/27/2023 10:26 AM COMPARISON: X-ray lumbar spine on 06/16/2018 CLINICAL INDICATION/HISTORY: Low back pain. TECHNIQUE: AP, lateral, oblique and cone down lateral views of the lumbar spine are presented. FINDINGS: There are five [id number] lumbar vertebrae. No fracture or subluxations are noted. There is L5-S1 disc space narrowing. There is mild osteophyte formation. Facet arthrosis seen in the lower lumbar spine. IMPRESSION IMPRESSION: Lumbar spine degenerative changes with L5-S1 disc space narrowing. 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: [facility] Transcribe Date/Time: Mar 27 2023 10:51A Dictated by : CHOLO MILLER MD This examination was interpreted and the report reviewed and electronically signed by: CHOLO MILLER MD on Mar 27 2023 10:52AM EST [facility] XR Lumbar spine AP and Later al and obliqueOrdered By: [facility] Provider on 03-27-2023 [facility] DOMINIK DIAGNOSTIC RTon 07-04-19 22 [facility] BIOPSY BREAST RTon 2021 [facility] BREAST LTD RTon 2 [facility] DOMINIK DIAG W JUVE RTon 022 [facility] No Panel Informationon 06-05 [facility] Basic metabolic 2000 panelon 06-03-2021 Anion gap [Moles/Vol] 12 mmol/L 9 - 18 mmol/L [facility] Calcium [Mass/Vol] 9.5 mg/dL 8.5 - 10. 2 mg/dL [facility] Chloride [Moles/Vol] 103 mmol/L 97 - 105 mmol/L [facility] CO2 [Moles/Vol] 24 mmol/L 22 - 30 mmol/L [facility] Creatinine [Mass/Vol] 0.60 mg/dL 0.58 - 0.96 mg/dL [facility] Estimated Glomerular Filtration Rate 115 mL/min/1.73m >=60 mL/min/1.73m [facility] Glucose [Mass/Vol] 93 mg/dL 74 - 99 mg/dL [facility] Potassium [Moles/Vol] 4.1 mmol/L 3.7 - 5.1 mmol/L [facility] Sodium [Moles/Vol] 139 mmol/L 136 - 144 mmol/L [facility] Urea nitrogen [Mass/Vol] 15 mg/dL 7 - 21 mg/dL [facility] XR Knee - bilateral 4 Viewso n 08-06-2020 IMPRESSION: Tricompartmental degenerative changes of bilateral knees without acute osseous abnormality or joint effusion. 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: [email or web address] Transcribe Date/Time: Aug 06 2020 9:44A Dictated by : ROSARIO MATHUR MD This examination was interpreted and the report reviewed and electronically signed by: ROSARIO MATHUR MD on Aug 06 2020 9:47AM [facility] DIVISION OF RADIOLOGY * * *Final Report* * * DATE OF EXAM: Aug 06 2020 9:42AM WOX [id number] - XR KNEE 4V AP/PA/LAT/MERCH JEANMARIE / PROCEDURE REASON: multiple diagnoses * * * * Physician Interpretation * * * * EXAMINATION: XR KNEE 4V AP/PA/LAT/MERCH JEANMARIE CLINICAL HISTORY: Pt. states bilateral knee pain. No known injury. Chronic pain of both knees Technique: XR KNEE 4V AP/PA/LAT/MERCH JEANMARIE -- BILATERAL knees with 5 views on 5 images Comparison: None RESULT: RIGHT knee: No acute fracture or dislocation. There is narrowing of the medial compartment of the RIGHT knee. Narrowing is noted at the lateral aspect of the patellofemoral joint. Tricompartmental degenerative spurring with a small enthesophyte at the quadriceps tendon insertion. No RIGHT knee joint effusion. LEFT knee: No acute fracture or dislocation. There is narrowing at the lateral aspect of the patellofemoral joint. Tricompartmental degenerative spurring. No LEFT knee joint effusion. DIVISION OF RADIOLOGY Provider, [facility] Ingrid Simpson - 08/06/2020 * * *Final Report* * * DATE OF EXAM: Aug 06 2020 9:42AM WOX [id number] - XR KNEE 4V AP/PA/LAT/MERCH JEANMARIE / PROCEDURE REASON: multiple diagnoses * * * * Physician Interpretation * * * * EXAMINATION: XR KNEE 4V AP/PA/LAT/MERCH JEANMARIE CLINICAL HISTORY: Pt. states bilateral knee pain. No known injury. Chronic pain of both knees Technique: XR KNEE 4V AP/PA/LAT/MERCH JEANMARIE -- BILATERAL knees with 5 views on 5 images Comparison: None RESULT: RIGHT knee: No acute fracture or dislocation. There is narrowing of the medial compartment of the RIGHT knee. Narrowing is noted at the lateral aspect of the patellofemoral joint. Tricompartmental degenerative spurring with a small enthesophyte at the quadriceps tendon insertion. No RIGHT knee joint effusion. LEFT knee: No acute fracture or dislocation. There is narrowing at the lateral aspect of the patellofemoral joint. Tricompartmental degenerative spurring. No LEFT knee joint effusion. IMPRESSION IMPRESSION: Tricompartmental degenerative changes of bilateral knees without acute osseous abnormality or joint effusion. 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: [facility] Transcribe Date/Time: Aug 06 2020 9:44A Dictated by : ROSARIO MATHUR MD This examination was interpreted and the report reviewed and electronically signed by: ROSARIO MATHUR MD on Aug 06 2020 9:47AM EST [facility] Radiology Study observation (narrative) [facility] XR Knee - bilateral 4 ViewsO rdered By: [facility]cf Provider on 08-06-2020 [facility] No Panel Information [facility] Vital Signs Date Time Vital Sign Value Performing Clinician Faci ej 07-29-2024 19:30-0400 Diastolic blood pressure 78 mm[Hg] Out of Physician [facility] 07-29-2024 19:30-0400 Systolic blood pressure 157 mm[Hg] Out of Physician [facility] 07-29-2024 19:05-0400 Body temperature 97.2 [degF] Out of Physician [facility] 07-29-2024 19:05-0400 Body weight 131.7 kg Out of Physician MD [facility] 07-29-2024 19:05-0400 Heart rate 103 /min Out of Physician MD [facility] 07-29-2024 19:05-0400 Respiratory rate 16 /min Out of Physician [facility] 07-29-2024 19:05-0400 SaO2% (BldA) [Mass fraction] 98 % Out of Physician [facility] 06-16-2024 15:45-0400 Body height 167.6 cm Mario VARGAS-C Work Phone: [facility] 06-16-2024 15:45-0400 Body mass index (BMI) [Ratio] 45.19 kg/m2 Mario Osborne PA-C Work Phone: [facility] 06-16-2024 15:45-0400 Body weight 127 kg Mario Osborne PA-C Work Phone: [facility] 06-16-2024 15:45-0400 Diastolic blood pressure 84 mm[Hg] Mario Osborne PA-C Work Phone: [facility] 06-16-2024 15:45-0400 Heart rate 77 /min Mario Osborne PA-C Work Phone: [facility] 06-16-2024 15:45-0400 SaO2% (BldA) [Mass fraction] 99 % Mario Osborne PA-C Work Phone: [facility] 06-16-2024 15:45-0400 Systolic blood pressure 126 mm[Hg] Mario Osborne PA-C Work Phone: [facility] 06-09-2024 10:18-0400 Body height 167.6 cm Mario Osborne PA-C Work Phone: [facility] 06-09-2024 10:18-0400 Body mass index (BMI) [Ratio] 45.4 kg/m2 Mario Osborne PA-C Work Phone: [facility] 06-09-2024 10:18-0400 Body weight 127.6 kg Mario Osborne PA-C Work Phone: [facility] 06-09-2024 10:18-0400 Diastolic blood pressure 83 mm[Hg] Mario Osborne PA-C Work Phone: [facility] 06-09-2024 10:18-0400 Heart rate 83 /min Mario Osborne PA-C Work Phone: [facility] 06-09-2024 10:18-0400 SaO2% (BldA) [Mass fraction] 96 % Mario VARGAS-C Work Phone: [facility] 06-09-2024 10:18-0400 Systolic blood pressure 121 mm[Hg] Mario VARGAS-C Work Phone: [facility] 03-30-2024 09:55-0500 Diastolic blood pressure 92 mm[Hg] Seema Guillory MD Work Phone: [facility] 03-30-2024 09:55-0500 Heart rate 86 /min Seema Guillory MD Work Phone: [facility] 03-30-2024 09:55-0500 Respiratory rate 16 /min Seema Guillory MD Work Phone: [facility] 03-30-2024 09:55-0500 SaO2% (BldA) [Mass fraction] 98 % Seema Guillory MD Work Phone: [facility] 03-30-2024 09:55-0500 Systolic blood pressure 148 mm[Hg] Seema Guillory MD Work Phone: [facility] 03-30-2024 09:35-0500 Body temperature 98.1 [degF] Seema Guillory MD Work Phone: [facility] 03-11-2024 09:52-0500 Body height 167.6 cm Pacc 1 Work Phone: [facility] 03-11-2024 09:52-0500 Body mass index (BMI) [Ratio] 45.52 kg/m2 Pacc 1 Work Phone: [facility] 03-11-2024 09:52-0500 Body temperature 97.5 [degF] Pacc 1 Work Phone: [facility] 03-11-2024 09:52-0500 Body weight 127.91 kg Pacc 1 Work Phone: [facility] 03-11-2024 09:52-0500 Diastolic blood pressure 88 mm[Hg] Pacc 1 Work Phone: [facility] 03-11-2024 09:52-0500 Heart rate 110 /min Pacc 1 Work Phone: [facility] 03-11-2024 09:52-0500 Respiratory rate 14 /min Pacc 1 Work Phone: [facility] 03-11-2024 09:52-0500 SaO2% (BldA) [Mass fraction] 98 % Pacc 1 Work Phone: [facility] 03-11-2024 09:52-0500 Systolic blood pressure 120 mm[Hg] Pacc 1 Work Phone: [facility] 01-06-2024 12:35-0500 Body height 167.6 cm Shakeel Conner i, MD Work Phone: [facility] 01-06-2024 12:35-0500 Body mass index (BMI) [Ratio] 43.98 kg/m2 Shakeel Solano MD Work Phone: [facility] 01-06-2024 12:35-0500 Body weight 123.6 kg Shakeel Conner i, MD Work Phone: [facility] 01-06-2024 12:35-0500 Diastolic blood pressure 86 mm[Hg] Shakeel Solano MD Work Phone: [facility] 01-06-2024 12:35-0500 Heart rate 83 /min Shakeel Conner i, MD Work Phone: [facility] 01-06-2024 12:35-0500 SaO2% (BldA) [Mass fraction] 97 % Shakeel Solano MD Work Phone: [facility] 01-06-2024 12:35-0500 Systolic blood pressure 145 mm[Hg] Shakeel Solano MD Work Phone: [facility] 12-31-2023 09:03-0500 Body mass index (BMI) [Ratio] 45.12 kg/m2 Rosie Soriano CERAMIC ENGINEER.CHROME CLEANER Work Phone: [facility] 12-31-2023 09:03-0500 Body temperature 97.59 [degF] Rosie Soriano CERAMIC ENGINEER.C RUBBER STAMP ASSEMBLER Work Phone: [facility] 12-31-2023 09:03-0500 Body weight 126.8 kg Rosie Soriano CERAMIC ENGINEER.C RUBBER STAMP ASSEMBLER Work Phone: [facility] 12-31-2023 09:03-0500 Diastolic blood pressure 72 mm[Hg] Rosie Soriano CERAMIC ENGINEER.CHROME CLEANER Work Phone: [facility] 12-31-2023 09:03-0500 Heart rate 85 /min Rosie Soriano CERAMIC ENGINEER.C RUBBER STAMP ASSEMBLER Work Phone: [facility] 12-31-2023 09:03-0500 Respiratory rate 18 /min Rosie Soriano CERAMIC ENGINEER.C RUBBER STAMP ASSEMBLER Work Phone: [facility] 12-31-2023 09:03-0500 SaO2% (BldA) [Mass fraction] 98 % Rosie Soriano CERAMIC ENGINEER.CHROME CLEANER Work Phone: [facility] 12-31-2023 09:03-0500 Systolic blood pressure 145 mm[Hg] Rosie Soriano CERAMIC ENGINEER.CHROME CLEANER Work Phone: [facility] 12-07-2023 08:41-0400 Body height 167.6 cm Seema Guillory MD Work Phone: [facility] 12-07-2023 08:41-0400 Body mass index (BMI) [Ratio] 44.39 kg/m2 Seema Guillory MD Work Phone: [facility] 12-07-2023 08:41-0400 Body weight 124.74 kg Seema Guillory MD Work Phone: [facility] 12-07-2023 08:41-0400 Diastolic blood pressure 77 mm[Hg] Seema Guillory MD Work Phone: [facility] 12-07-2023 08:41-0400 Heart rate 97 /min Seema Guillory MD Work Phone: [facility] 12-07-2023 08:41-0400 Respiratory rate 16 /min Seema Guillory MD Work Phone: [facility] 12-07-2023 08:41-0400 SaO2% (BldA) [Mass fraction] 99 % Seema Guillory MD Work Phone: [facility] 12-07-2023 08:41-0400 Systolic blood pressure 158 mm[Hg] Seema Guillory MD Work Phone: [facility] 12-03-2023 08:20-0400 Body mass index (BMI) [Ratio] 44.05 kg/m2 Tico Root CERAMIC ENGINEER.BATCH AND FURNACE MANAGER Work Phone: [facility] 12-03-2023 08:20-0400 Body weight 123.8 kg Tico Root CERAMIC ENGINEER.CN S Work Phone: [facility] 12-03-2023 08:20-0400 Diastolic blood pressure 84 mm[Hg] Tico Root CERAMIC ENGINEER.BATCH AND FURNACE MANAGER Work Phone: [facility] 12-03-2023 08:20-0400 Heart rate 86 /min Tico Root CERAMIC ENGINEER.CN S Work Phone: [facility] 12-03-2023 08:20-0400 Respiratory rate 16 /min Tico Root CERAMIC ENGINEER.CN S Work Phone: [facility] 12-03-2023 08:20-0400 Systolic blood pressure 129 mm[Hg] Tico Root CERAMIC ENGINEER.BATCH AND FURNACE MANAGER Work Phone: [facility] 11-26-2023 10:50-0400 Diastolic blood pressure 89 mm[Hg] Igor Blair CERAMIC ENGINEER.CHROME CLEANER Work Phone: [facility] 11-26-2023 10:50-0400 Heart rate 96 /min Igor Blair CERAMIC ENGINEER.C RUBBER STAMP ASSEMBLER Work Phone: [facility] 11-26-2023 10:50-0400 SaO2% (BldA) [Mass fraction] 96 % Igor Blair CERAMIC ENGINEER.CHROME CLEANER Work Phone: [facility] 11-26-2023 10:50-0400 Systolic blood pressure 140 mm[Hg] Igor Onofreing CERAMIC ENGINEER.CHROME CLEANER Work Phone: [facility] 11-26-2023 09:48-0400 Body height 167.6 cm Igor Blair CERAMIC ENGINEER.C RUBBER STAMP ASSEMBLER Work Phone: [facility] 11-26-2023 09:48-0400 Body mass index (BMI) [Ratio] 43.87 kg/m2 Igor Blair CERAMIC ENGINEER.CHROME CLEANER Work Phone: [facility] 11-26-2023 09:48-0400 Body weight 123.3 kg Igor Blair CERAMIC ENGINEER.C RUBBER STAMP ASSEMBLER Work Phone: [facility] 10-22-2023 10:15-0400 Body mass index (BMI) [Ratio] 43.98 kg/m2 Ciera Tankha DO Work Phone: [facility] 10-22-2023 10:15-0400 Body weight 123.61 kg Ciera Tankha DO Work Phone: [facility] 10-22-2023 10:15-0400 Diastolic blood pressure 83 mm[Hg] Ciera Tankha DO Work Phone: [facility] 10-22-2023 10:15-0400 Heart rate 92 /min Ciera Tankha DO Work Phone: [facility] 10-22-2023 10:15-0400 Respiratory rate 16 /min Ciera Tankha DO Work Phone: [facility] 10-22-2023 10:15-0400 SaO2% (BldA) [Mass fraction] 97 % Ciera Tankha DO Work Phone: [facility] 10-22-2023 10:15-0400 Systolic blood pressure 145 mm[Hg] Ciera Tankha DO Work Phone: [facility] 10-02-2023 09:14-0400 Body mass index (BMI) [Ratio] 44.48 kg/m2 Rosie Soriano CERAMIC ENGINEER.CHROME CLEANER Work Phone: [facility] 10-02-2023 09:14-0400 Body temperature 98.1 [degF] Rsoie Soriano CERAMIC ENGINEER.C RUBBER STAMP ASSEMBLER Work Phone: [facility] 10-02-2023 09:14-0400 Body weight 125 kg Rosie Soriano CERAMIC ENGINEER.C RUBBER STAMP ASSEMBLER Work Phone: [facility] 10-02-2023 09:14-0400 Diastolic blood pressure 88 mm[Hg] Rosie Soriano CERAMIC ENGINEER.CHROME CLEANER Work Phone: [facility] 10-02-2023 09:14-0400 Heart rate 103 /min Rosie Soriano CERAMIC ENGINEER.C RUBBER STAMP ASSEMBLER Work Phone: [facility] 10-02-2023 09:14-0400 Respiratory rate 21 /min Rosie Soriano CERAMIC ENGINEER.C RUBBER STAMP ASSEMBLER Work Phone: [facility] 10-02-2023 09:14-0400 SaO2% (BldA) [Mass fraction] 98 % Rosie Soriano CERAMIC ENGINEER.CHROME CLEANER Work Phone: [facility] 10-02-2023 09:14-0400 Systolic blood pressure 142 mm[Hg] Rosie Soriano CERAMIC ENGINEER.CHROME CLEANER Work Phone: [facility] 06-26-2023 10:41-0400 Body mass index (BMI) [Ratio] 42.7 kg/m2 Chelly Athy PA-C Work Phone: [facility] 06-26-2023 10:41-0400 Body temperature 97.11 [degF] Chelly Athy PA-C Work Phone: [facility] 06-26-2023 10:41-0400 Body weight 120 kg Chelly Athy PA-C Work Phone: [facility] 06-26-2023 10:41-0400 Diastolic blood pressure 88 mm[Hg] Chelly Athy PA-C Work Phone: [facility] 06-26-2023 10:41-0400 Heart rate 94 /min Chelly Athy PA-C Work Phone: [facility] 06-26-2023 10:41-0400 Respiratory rate 20 /min Chelly Athy PA-C Work Phone: [facility] 06-26-2023 10:41-0400 SaO2% (BldA) [Mass fraction] 98 % Chelly Athy PA-C Work Phone: [facility] 06-26-2023 10:41-0400 Systolic blood pressure 132 mm[Hg] Chelly Athy PA-C Work Phone: [facility] 06-26-2023 09:34-0400 Body mass index (BMI) [Ratio] 42.71 kg/m2 Yahaira Daniels CERAMIC ENGINEER.CNM Work Phone: [facility] 06-26-2023 09:34-0400 Body weight 120.02 kg Yahaira Daniels CERAMIC ENGINEER.CNM Work Phone: [facility] 06-26-2023 09:34-0400 Diastolic blood pressure 90 mm[Hg] Yahaira Lockts CERAMIC ENGINEER.CNM Work Phone: [facility] 06-26-2023 09:34-0400 Systolic blood pressure 128 mm[Hg] Yahaira Lockts CERAMIC ENGINEER.CNM Work Phone: [facility] 04-03-2023 08:23-0500 Body weight 118.39 kg Tico Root CERAMIC ENGINEER.CN S Work Phone: [facility] 04-03-2023 08:23-0500 Diastolic blood pressure 84 mm[Hg] Tico Gonzalezs CERAMIC ENGINEER.BATCH AND FURNACE MANAGER Work Phone: [facility] 04-03-2023 08:23-0500 Heart rate 98 /min Tico Gonzalezs CERAMIC ENGINEER.CN S Work Phone: [facility] 02-23-2024 08:23-0500 Respiratory rate 16 /min Tico Root CERAMIC ENGINEER.CN S Work Phone: [facility] 04-03-2023 08:23-0500 Systolic blood pressure 129 mm[Hg] Tico Root CERAMIC ENGINEER.BATCH AND FURNACE MANAGER Work Phone: [facility] 03-26-2023 14:01-0500 Diastolic blood pressure 80 mm[Hg] Kae Lennon PA-C Work Phone: [facility] 03-26-2023 14:01-0500 Systolic blood pressure 140 mm[Hg] Kae Lennon PA-C Work Phone: [facility] 03-26-2023 12:51-0500 Body weight 120.7 kg Kae Lennon PA-C Work Phone: [facility] 03-26-2023 12:51-0500 Heart rate 93 /min Kae Lennon PA-C Work Phone: [facility] 10-31-2022 12:47-0400 Body weight 122.92 kg Tico Root CERAMIC ENGINEER.CN S Work Phone: [facility] 10-31-2022 12:47-0400 Diastolic blood pressure 80 mm[Hg] Tico Root CERAMIC ENGINEER.BATCH AND FURNACE MANAGER Work Phone: [facility] 10-31-2022 12:47-0400 Heart rate 83 /min Tico Root CERAMIC ENGINEER.CN S Work Phone: [facility] 10-31-2022 12:47-0400 Respiratory rate 16 /min Tico Root CERAMIC ENGINEER.CN S Work Phone: [facility] 10-31-2022 12:47-0400 Systolic blood pressure 132 mm[Hg] Tico Root CERAMIC ENGINEER.BATCH AND FURNACE MANAGER Work Phone: [facility] 02-20-2022 08:46-0500 Body height 167.6 cm Sylvain Mckeon MD Work Phone: [facility] 02-20-2022 08:46-0500 Body temperature 97.81 [degF] Sylvain Mckeon MD Work Phone: [facility] 02-20-2022 08:46-0500 Body weight 122.47 kg Sylvain Mckeon MD Work Phone: [facility] 02-20-2022 08:46-0500 Diastolic blood pressure 90 mm[Hg] Sylvain Mckeon MD Work Phone: [facility] 02-20-2022 08:46-0500 Heart rate 94 /min Sylvain Mckeon MD Work Phone: [facility] 02-20-2022 08:46-0500 Respiratory rate 14 /min Sylvain Mckeon MD Work Phone: [facility] 02-20-2022 08:46-0500 SaO2% (BldA) [Mass fraction] 98 % Sylvain Mckeon MD Work Phone: [facility] 02-20-2022 08:46-0500 Systolic blood pressure 124 mm[Hg] Sylvain Mckeon MD Work Phone: [facility] 09-02-2021 14:10-0400 Body weight 116.48 kg Desirae Zamudio PA-C Work Phone: [facility] 06-12-2021 08:42-0400 Body height 167.6 cm Sylvain Mckeon MD Work Phone: [facility] 06-12-2021 08:42-0400 Body temperature 97.59 [degF] Sylvain Mckeon MD Work Phone: [facility] 06-12-2021 08:42-0400 Body weight 120.93 kg Sylvain Mckeon MD Work Phone: [facility] 06-12-2021 08:42-0400 Diastolic blood pressure 70 mm[Hg] Sylvain Mckeon MD Work Phone: [facility] 06-12-2021 08:42-0400 Heart rate 120 /min Sylvain Mckeon MD Work Phone: [facility] 06-12-2021 08:42-0400 SaO2% (BldA) [Mass fraction] 99 % Sylvain Mckeon MD Work Phone: [facility] 06-12-2021 08:42-0400 Systolic blood pressure 124 mm[Hg] Sylvain Mckeon MD Work Phone: [facility] Encounters Encounter Date Encounter Type Care Provider Facility Start: 07-29-2024 Non-patient / Non-visit [facility] Start: 07-11-2024 End: 07-11-2024 ambulatory [facility] Facility:[facility] Start: 07-11-2024 End: 07-11-2024 Patient encounter procedure Desirae Zamudio PA-C Work Phone: Orthopaedics Comment on above: Primary osteoarthrit is of both knees (Primary Dx) Start: 06-30-2024 End: 06-30-2024 [facility] Facility:[facility] Start: 06-17-2024 [facility] Facility:[facility] Start: 06-17-2024 End: 06-17-2024 Subsequent hospital visit by physician [facility] [place] Starkey Work Phone: Radiology Comment on above: Chronic midline thor acic back pain [M54.6, G89.29] Start: 06-16-2024 End: 06-16-2024 Patient encounter procedure Mario Osborne PA-C Work Phone: [facility] [place] Comment on above: Chronic midline thor acic back pain (Primary Dx); 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 Start: 06-16-2024 End: 06-16-2024 ambulatory MARIO OSBORNE Facility:[facility] Start: 06-09-2024 End: 06-09-2024 Patient encounter procedure Mario Osborne PA-C Work Phone: [facility] [place] Comment on above: Primary osteoarthrit is of both knees (Primary Dx); Lumbosacral spondylosis without myelopathy; Hyperlordosis deformity of lumbar spine; Morbid obesity due to excess calories (HCC) Start: 06-09-2024 [facility] Facility:[facility] Start: 05-20-2024 End: 07-20-2024 Follow-up encounter Yahaira Daniels APRN.CNM Work Phone: OB/Gynecology Start: 05-20-2024 End: 05-20-2024 ambulatory [facility] Facility:[facility] Start: 05-20-2024 End: 05-20-2024 Patient encounter procedure Rosie Ratliff PA-C Work Phone: [facility] Comment on above: Impingement of right shoulder (Primary Dx) Start: 05-19-2024 End: 05-19-2024 [facility] Facility:[facility] Start: 05-18-2024 End: 07-18-2024 Follow-up encounter Yahaira Daniels APRN.CNM Work Phone: OB/Gynecology Start: 05-17-2024 End: 05-17-2024 [facility] Facility:[facility] Start: 05-17-2024 End: 05-17-2024 Subsequent hospital visit by physician [facility] Work Phone: Radiology Comment on above: Abnormal screening m ammogram [R92.8] Start: 05-13-2024 End: 05-13-2024 Telephone encounter Yahaira Daniels APRN.CNM Work Phone: Radiology Comment on above: Orders Start: 05-12-2024 End: 05-12-2024 ambulatory Bennie Angel PT Work Phone: [facility] Physical Therapy Comment on above: Degeneration of inte rvertebral disc of lumbar region with lower extremity pain (Primary Dx); Impingement of right shoulder Impingement of right shoulder (Primary Dx) Start: 05-11-2024 End: 07-11-2024 Follow-up encounter Yahaira Daniels APRN.CNM Work Phone: OB/Gynecology Start: 05-10-2024 End: 05-10-2024 ambulatory [facility] Facility:[facility] Start: 05-10-2024 End: 05-10-2024 Subsequent hospital visit by physician [facility] Mamm[facility] Comment on above: Encounter for other screening for malignant neoplasm of breast [Z12.39] Start: 05-09-2024 End: 05-10-2024 ambulatory Desirae Trianarober PA-C Work Phone: Orthopaedics Comment on above: Current Health Issue s Start: 05-09-2024 End: 05-09-2024 Patient encounter procedure Desirae Zamudio PA-C Work Phone: Orthopaedics Comment on above: Primary osteoarthrit is of both knees (Primary Dx); Degeneration of intervertebral disc of lumbar region with lower extremity pain Start: 05-01-2024 End: 05-02-2024 Refill Yahaira Daniels APRN.CNM Work Phone: OB/Gynecology Comment on above: Refill Request Start: 04-29-2024 End: 04-29-2024 ambulatory [facility] Facility:[facility] Start: 04-29-2024 End: 04-29-2024 Subsequent hospital visit by physician [facility] Laura Work Phone: Radiology Comment on above: Pain in both knees, unspecified chronicity [M25.561, M25.562] Start: 04-05-2024 End: 04-05-[address] Work Phone: Endocrinology Comment on above: 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 with body mass index (BMI) of 40.0 to 44.9 in adult (HCC) Start: 04-05-2024 End: 04-05-2024 Telemedicine consultation with patient Piyush Lopez RD Work Phone: Endocrinology Start: 03-30-[address] [facility] Facility:[facility] Start: 03-30-2024 End: 03-30-2024 Subsequent hospital visit by physician Seema Guillory MD Work Phone: [facility] Endoscopy Comment on above: Special screening fo r malignant neoplasms, colon [Z12.11] Start: 03-20-2024 End: 03-21-2024 Admission to same day surgery center Seema Guillory MD Work Phone: General Surgery Comment on above: Colonoscopy prep Start: 03-20-2024 End: 03-21-2024 ambulatory Seema Guillory MD Work Phone: General Surgery Start: 03-11-2024 End: 03-11-2024 PAT Pac [facility] 1 Work Phone: Pre Anesthesia Comment on above: Morbid obesity due t o excess calories (HCC) (Primary Dx); Autism spectrum disorder; Schizoaffective disorder, unspecified type (HCC); Obsessive-compulsive disorder, unspecified type; Chronic fatigue syndrome with fibromyalgia; Chronic bilateral low back pain without sciatica; Vertigo Start: 03-08-2024 End: 03-09-2024 ambulatory Igor Blair APRN.CHROME CLEANER Work Phone: Neurology Start: 03-08-2024 End: 03-09-2024 Patient encounter procedure Igor Blair APRN.CHROME CLEANER Work Phone: Neurology Comment on above: Missed appointment Start: 02-15-2024 End: 02-15-2024 Social Work Kevin GILESW Work Phone: Endocrinology Start: 02-05-2024 End: 02-05-2024 ambulatory [facility] Facility:[facility] Start: 02-05-2024 End: 02-05-2024 Patient encounter procedure Rosie Ratliff PA-C Work Phone: [facility] Comment on above: Impingement of right shoulder (Primary Dx) Start: 02-01-2024 End: 02-01-2024 Orders Only Desirae Zamudio PA-C Work Phone: Orthopaedics Comment on above: Pain in both knees, unspecified chronicity (Primary Dx) Start: 01-27-2024 End: 01-27-2024 E-mail encounter from caregiver Mario Toth Therapist Work Phone: Pain Recovery Start: 01-27-2024 End: 01-27-2024 ambulatory Kiara Pedraza APRN.CHROME CLEANER Work Phone: Internal Medicine [place] Comment on above: Flexeril Adjustment disorder with depressed mood (Primary Dx); Fibromyalgia; Diffuse pain; Hypermobility syndrome resources Start: 01-27-2024 End: 01-27-2024 Telemedicine consultation with patient Mario Toth Therapist Work Phone: Pain Recovery Start: 01-26-2024 End: 02-01-2024 ambulatory Desirae Zamudio PA-C Work Phone: Orthopaedics Comment on above: Injection question Start: 01-21-2024 End: 02-08-2024 Telephone encounter Ciera King DO Work Phone: Neurology Comment on above: Appointment Start: 01-06-2024 End: 01-06-2024 [facility] Facility:[facility] Start: 01-06-2024 End: 01-06-2024 [facility] Facility:[facility] Start: 01-06-2024 End: 01-06-2024 Patient encounter procedure Nasreen Garcia, CCC-A Work Phone: Audiology Comment on above: Dizziness (Primary D x); Other specified hearing loss, unspecified ear; Tinnitus, bilateral 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 with body mass index (BMI) of 40.0 to 44.9 in adult (HCC) (Primary Dx) Vertigo (Primary Dx) ; Tinnitus, bilateral; Dizziness; Sensation of fullness in both ears Start: 12-31-2023 End: 12-31-2023 [facility] Facility:[facility] Start: 12-31-2023 End: 12-31-2023 Patient encounter procedure Rosie Soriano APRN.CHROME CLEANER Work Phone: [facility] Comment on above: Pharyngitis, unspeci fied etiology (Primary Dx) Start: 12-28-2023 End: 12-28-2023 ambulatory [facility] Neurology Start: 12-28-2023 End: 12-28-2023 Patient encounter procedure Autonomic 2 Neur Main Neurology Start: 12-27-2023 End: 12-28-2023 Refill Yahaira Daniels APRN.CNM Work Phone: OB/Gynecology Comment on above: Refill Request Start: 12-17-2023 End: [facility] Start: 12-17-2023 End: 12-17-2023 Subsequent hospital visit by physician Fiordaliza Tapia [facility] Cat Scan Comment on above: Left lower quadrant abdominal pain [R10.32] Start: 12-10-2023 End: 12-10-2023 E-mail encounter from caregiver [facility] Work Phone: General Surgery Start: 12-10-2023 End: 12-10-2023 Follow-up encounter Nurse [facility] Work Phone: General Surgery Comment on above: Colonoscopy follow-u p Start: 12-08-2023 End: 12-08-2023 Telephone encounter Errol Luu MD Work Phone: Internal Medicine [place] Comment on above: Results Start: 12-07-2023 End: 12-07-2023 ambulatory SEEMA GUILLORY Facility:[facility] Start: 12-07-2023 End: 12-07-2023 Patient encounter procedure Seema Guillory MD Work Phone: General Surgery Comment on above: Special screening fo r malignant neoplasms, colon Start: 12-05-2023 End: 12-05-2023 [facility] Facility:[facility] Start: 12-04-2023 End: 12-09-2023 Telephone encounter Anastasiia ALY Navigation Start: 12-04-2023 End: 12-04-2023 [facility] Start: 12-03-2023 End: 12-03-2023 Patient encounter procedure Tico Root APRN.BATCH AND FURNACE MANAGER Work Phone: Internal Medicine [place] Comment on above: Routine medical exam (Primary Dx); Encounter for immunization; Screening for colon cancer; Special screening for malignant neoplasms, colon; Left lower quadrant abdominal pain; Periumbilical pain; Periumbilical hernia; Inadequate community resources; Shortness of breath on exertion; Family history of colon cancer; Family history of thyroid disease; Family history of diabetes mellitus Start: 12-03-2023 End: 12-03-2023 Patient encounter status Tico Root APRN.BATCH AND FURNACE MANAGER Work Phone: [facility] Start: 12-03-2023 End: 12-04-2023 ambulatory Tico Root CERAMIC ENGINEER.BATCH AND FURNACE MANAGER Work Phone: Internal Medicine [place] Comment on above: Lipid panel Start: 12-03-2023 Encounter for genera l adult medical examination without abnormal findings TICO ROOT [facility] Start: 11-27-2023 End: 11-27-2023 ambulatory Tico Root CERAMIC ENGINEER.BATCH AND FURNACE MANAGER Work Phone: Internal Medicine [place] Comment on above: Labs? Start: 11-26-2023 End: 11-27-2023 ambulatory Ciera Tankha DO Work Phone: Neurology Pain Comment on above: Gabapentin Start: 11-26-2023 End: 11-26-2023 Patient encounter procedure Igor Blair CERAMIC ENGINEER.CHROME CLEANER Work Phone: Neurology Comment on above: Tinnitus, bilateral (Primary Dx); POTS (postural orthostatic tachycardia syndrome); Dizziness; Sensation of fullness in both ears; Pre-syncope; Orthostatic lightheadedness; Tachycardia; Palpitations; Temperature intolerance; Imbalance Start: 11-13-2023 End: 11-13-2023 Telephone encounter Yahaira Daniels APRN.CNM Work Phone: OB/Gynecology Start: 11-11-2023 End: 11-13-2023 E-mail encounter from caregiver Yahaira Daniels ABRAM Work Phone: OB/Gynecology Start: 11-11-2023 End: 11-13-2023 Patient encounter procedure Yahairanicole Daniels APRN.CNM Work Phone: OB/Gynecology Comment on above: Appointment Request (HM) Start: 11-03-2023 End: 11-03-2023 ambulatory ERROL LUU Facility:[facility] Start: 11-03-2023 End: 11-03-2023 Office outpatient visit 10 minutes Rosie Ratliff PA-C Work Phone: [place] Comment on above: Impingement of left shoulder (Primary Dx); Impingement of right shoulder Start: 10-29-2023 End: 10-29-2023 Orders Only Rosie Rtaliff PA-C Work Phone: [facility] [place] Comment on above: Pain (Primary Dx) Pain [R52] Start: 10-22-2023 End: 11-16-2023 ambulatory Ciera King DO Work Phone: Neurology Pain Start: 10-22-2023 End: 11-16-2023 Patient encounter procedure Ciera King DO Work Phone: Neurology Pain Comment on above: POTS (postural ortho static tachycardia syndrome) (Primary Dx); Diffuse pain; Fibromyalgia; Hypermobility syndrome POTS & EDS Referral Start: 10-02-2023 End: 10-02-2023 [facility] Facility:[facility] Start: 10-02-2023 End: 10-02-2023 Patient encounter procedure Rosie Soriano APRN.CNP Work Phone: [facility] Comment on above: Hordeolum externum o f right upper eyelid (Primary Dx) Start: 07-17-2023 End: 07-17-2023 [facility] Facility:[facility] Start: 07-17-2023 End: 07-17-2023 Office outpatient visit 15 minutes Rosie Ratliff PA-C Work Phone: [facility] Comment on above: Impingement of left shoulder (Primary Dx) Start: 07-15-2023 End: 07-15-2023 [facility] Facility:[facility] Start: 07-15-2023 End: 07-15-2023 Patient encounter procedure Vance Gray MD Work Phone: Dermatology Comment on above: Rosacea Start: 06-26-2023 End: 06-26-2023 Subsequent hospital visit by physician [facility] Laura Work Phone: Radiology Comment on above: Acute pain of left s houlder [M25.512] Start: 06-26-2023 End: 06-26-2023 Patient encounter procedure Chelly Cam PA-C Work Phone: [facility] Comment on above: Acute pain of left s houlder (Primary Dx) Start: 06-26-2023 End: 06-26-2023 Patient encounter procedure Yahaira Daniels CERAMIC ENGINEER.CNM Work Phone: OB/Gynecology Comment on above: Screen for STD (sexu ally transmitted disease) (Primary Dx) Start: 06-17-2023 Refill Kiara Pedraza CERAMIC ENGINEER .CHROME CLEANER Work Phone: Internal Medicine [place] Comment on above: Refill Request Start: 05-13-2023 Refill Yahaira Vargas s CERAMIC ENGINEER.CNM Work Phone: OB/Gynecology Comment on above: Refill Request Start: 05-11-2023 Documentation procedure Mammog quan Coordinator [facility] Start: 05-11-2023 Letter encounter Mammography Coordinator [facility] Department Start: 05-11-2023 End: 05-11-2023 Subsequent hospital visit by physician [facility] Comment on above: Encounter for screen ing mammogram for breast cancer [Z12.31] Start: 04-03-2023 End: 04-03-2023 Office outpatient visit 25 minutes Tico Root CERAMIC ENGINEER.BATCH AND FURNACE MANAGER Work Phone: Internal Medicine [place] Comment on above: Morbid obesity with BMI of 40.0-44.9, adult ([facility]) Start: 03-27-2023 End: 03-27-2023 Subsequent hospital visit by physician [facility] Work Phone: Radiology Comment on above: Chronic bilateral lo w back pain without sciatica [M54.50, G89.29] Start: 03-26-2023 ambulatory Kae OLVERAC Work Phone: Rheumatology Comment on above: Endocrinology Start: 03-26-2023 End: 03-26-2023 Office outpatient new 60 minutes Kae Lennon PA-C Work Phone: Rheumatology Comment on above: Fibromyalgia (Primar y Dx); Diffuse pain; Chronic bilateral low back pain without sciatica; Class 3 severe obesity due to excess calories without serious comorbidity with body mass index (BMI) of 40.0 to 44.9 in adult ([facility]); Rosacea Start: 03-16-2023 ambulatory Tico Gonzalezs CERAMIC ENGINEER.BATCH AND FURNACE MANAGER Work Phone: Internal [facility] [place] Comment on above: Wellbutrin Start: 11-25-2022 ambulatory Tico Gonzalezargentina JOHANSENN.BATCH AND FURNACE MANAGER Work Phone: Internal Medicine [place] Comment on above: Phentermine HCl (EWA PEX-P) 37.5 mg tablet Start: 10-31-2022 End: 10-31-2022 Office outpatient visit 25 minutes Tico Gonzalezargentina ACHARYA.BATCH AND FURNACE MANAGER Work Phone: Internal Medicine [place] Comment on above: Morbid obesity with BMI of 40.0-44.9, adult (HCC) (Primary Dx); Encounter for immunization; Weight gain; Morbid obesity due to excess calories (HCC); Chronic insomnia; Diffuse pain; ADHD (attention deficit hyperactivity disorder), combined type; Social anxiety disorder; Dysthymia; Chronic bilateral low back pain without sciatica Start: 10-26-2022 Refill Edin Jimenez PA-C Work Phone: Orthopaedics Comment on above: Refill Request Start: 10-03-2022 Refill Edin Jimenez PA-C Work Phone: Orthopaedics Comment on above: Refill Request Start: 07-22-2022 Refill Edin Jimenez PA-C Work Phone: Orthopaedics Comment on above: Refill Request Start: 06-30-2022 Refill Lakia swift APRN.CHROME CLEANER Work Phone: [facility] Comment on above: Refill Request Start: 05-21-2022 ambulatory Errol Ojeda Work Phone: Internal Medicine [facility] [place] Start: 02-20-2022 End: 02-20-2022 Patient encounter procedure Sylvain Mckeon MD Work Phone: General Surgery Comment on above: 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) Start: 02-19-2022 Documentation procedure Mammog quan [facility]inator [facility] Start: 02-19-2022 Letter encounter Mammography Coordinator [facility] Department Start: 02-13-2022 Refill Kiara Pedraza APRN, .CNP Work Phone: Internal Medicine [place] Comment on above: Refill Request Start: 01-05-2022 Refill Desirae Vetovit z PA-C Work Phone: Orthopaedics Comment on above: Refill Request Start: 11-28-2021 Refill Desirae Vetovit z PA-C Work Phone: Orthopaedics Comment on above: Refill Request Start: 11-07-2021 ambulatory Phil Flowers MD Work Phone: Orthopaedics Comment on above: Disability Placard Start: 10-06-2021 Refill Desirae Vetovit z PA-C Work Phone: Orthopaedics Comment on above: Refill Request Start: 09-02-2021 End: 09-02-2021 Patient encounter procedure Desirae Vetovitz PA-C Work Phone: Orthopaedics Comment on above: Primary osteoarthrit is of both knees (Primary Dx) Start: 08-01-2021 Refill Desirae Vetovit z PA-C Work Phone: Orthopaedics Comment on above: Refill Request Rx Frequency Start: 07-03-2021 ambulatory Sandhya Ojeda Work Phone: Mammography Comment on above: Breast Problem Start: 07-03-2021 Patient encounter procedure Sandhya Renteria MD Work Phone: [facility] Start: 07-03-2021 End: 07-03-2021 Subsequent hospital visit by physician [facility] Work Phone: Mammography Comment on above: Abnormal finding on breast imaging [R92.8] Abnormal mammogram [ R92.8] Start: 06-29-2021 Refill Isela veronica PA-C Work Phone: Orthopaedics Comment on above: Refill Request Start: 06-12-2021 Telephone encounter Sylvain Mckeon MD Work Phone: General Surgery Comment on above: Schedule Biopsy (US guided right breast biopsy at [facility]) Start: 06-12-2021 End: 06-12-2021 Patient encounter procedure Sylvain Mckeon MD Work Phone: General Surgery Comment on above: Abnormal finding on breast imaging (Primary Dx) Start: 06-05-2021 End: 06-05-2021 Subsequent hospital visit by physician [facility] Work Phone: Radiology Comment on above: Abnormal mammogram [ R92.8] Start: 06-03-2021 End: 06-03-2021 Patient encounter procedure Desirae Zamudio PA-C Work Phone: Orthopaedics Comment on above: Chondromalacia of le ft patella (Primary Dx); Leg swelling; Chondromalacia of right patella Start: 05-27-2021 End: 05-27-2021 Patient encounter procedure Phil Flowers MD Work Phone: Orthopaedics Comment on above: Chondromalacia of ri ght patella (Primary Dx); Chondromalacia of left patella; Chronic pain of both knees; Primary osteoarthritis of both knees Start: 05-10-2021 Refill Isela veronica PA-C Work Phone: Orthopaedics Comment on above: Refill Request Start: 04-23-2021 Telephone encounter Errol leija MD Work Phone: Mammogram Comment on above: Orders (Mammogram) Start: 08-06-2020 End: 08-06-2020 Subsequent hospital visit by physician [facility] Work Phone: Radiology Comment on above: Chronic pain of both knees [M25.561, M25.562, G89.29] Start: 05-04-2020 End: 05-04-2020 Discharged [facility]ring [facility]-Immun[facility] s Procedures Date Procedure Procedure Detail Performing Clinician Start: 07-11-2024 Arthrocentesis aspir &/inj major jt/bursa w/o us Desirae Zamudio PA-C Work Phone: Start: 05-20-2024 Arthrocentesis aspir &/inj major jt/bursa w/o us Rosie Ratliff PA-C Work Phone: Start: 05-17-2024 Us breast uni real t karol with image limited Yahaira Daniels CERAMIC ENGINEER.CNM Work Phone: Start: 03-30-2024 Colonoscopy flx dx w /collj spec when pfrmd Seema Guillory MD Work Phone: Start: 03-30-2024 Colonoscopy Seema Guillory MD Work Phone: Start: 02-05-2024 Arthrocentesis aspir &/inj major jt/bursa w/o us Rosie Ratliff PA-C Work Phone: Start: 01-06-2024 HEARING TEST/AUDIOGRAM Merlene Mchugh PA-C Work Phone: Start: 12-31-2023 STREP A MOLECULAR (POC) Rosie Soriano CERAMIC ENGINEER.CHROME CLEANER Work Phone: Start: 12-05-2023 Lipid 1996 panel - S mike or Plasma Seema Guillory MD Work Phone: Start: 12-03-2023 PFIZER-BIONTflatev COVI D-19 VACCINE AGE 12+ YR (COMIRNATY) Tico Root CERAMIC ENGINEER.BATCH AND FURNACE MANAGER Work Phone: Start: 11-03-2023 Arthrocentesis aspir &/inj major jt/bursa w/o us Rosie Ratliff PA-C Work Phone: Start: 07-17-2023 Arthrocentesis aspir &/inj major jt/bursa w/o us Rosie Ratliff PA-C Work Phone: Start: 06-26-2023 Radex shoulder compl ete minimum 2 views Chelly Cam PA-C Work Phone: Start: 05-11-2023 Screening mammograph y bi 2-view breast inc cad Bulk Order Provider Start: 03-27-2023 Radex hips bilateral with pelvis minimum 5 views Kae Lennon PA-C Work Phone: Start: 01-09-2023 Lipid 1996 panel - S mike or Plasma Xr [facility] Work Phone: Start: 09-02-2021 Arthrocentesis aspir &/inj major jt/bursa w/o us Desirae Vetovitz PA-C Work Phone: Start: 07-03-2021 Us breast uni real t karol with image limited Esther Osorio MD Work Phone: Start: 07-03-2021 Diagnostic mammograp hy computer-aided detcj uni Sandhya Renteria MD Work Phone: Start: 07-03-2021 Bx breast w/device 1 st lesion ultrasound guid Sylvain Mckeon MD Work Phone: Start: 06-05-2021 Us breast uni real t karol with image limited Kiara Pedraza CERAMIC ENGINEER.CHROME CLEANER Work Phone: Start: 06-05-2021 DOMINIK DIAG W JUVE RT Kiara Older CERAMIC ENGINEER.CHROME CLEANER Work Phone: Start: 06-03-2021 Arthrocentesis aspir &/inj major jt/bursa w/o us Desirae Vetovitz PA-C Work Phone: Start: 04-17-2021 Mammography Errol leija MD Work Phone: Start: 08-06-2020 Radiologic exam knee complete 4/more views Tico Root CERAMIC ENGINEER.BATCH AND FURNACE MANAGER Work Phone: Plan of Treatment Date Care Activity Detail Author Start: 12-04-2028 Lipid panel Lipid Screening [facility] Start: 04-19-2028 Urine microalbumin profile [facility] Start: 01-10-2028 Lipid panel Lipid Screening [facility] Start: 01-09-2028 Screening for malignant neoplasm of cervix [facility] Start: 12-02-2026 Diabetes Screening Diabetes Screening [facility] Start: 04-17-2026 HPV TESTING HPV TESTING [facility] Start: 04-17-2026 PAP TESTING PAP TESTING [facility] Start: 01-09-2026 Diabetes Screening Diabetes Screening [facility] Start: 05-26-2025 End: 05-26-2025 Patient encounter procedure 05/26/2025 11:30 AM EDT Office Visit OB/Gynecology [address] [place] [address] Yahaira Daniels APRN.CNM [address] [place] [address] annual OB/Gynecology Comment on above: annual Start: 05-10-2025 Screening for malignant neoplasm of breast Mammogram Screening [facility] Start: 03-30-2025 Screening for malignant neoplasm of colon [facility] Start: 11-17-2024 End: 06-17-2025 MG Breast - right Diagnostic for implant DOMINIK DIAGNOSTIC RIGHT Radiology Routine Mass of upper outer quadrant of right breast Expected: 11/17/2024, Expires: 06/17/2025 [facility] Comment on above: Expected: 11/17/2024, Expires: Start: 11-17-2024 End: 06-17-2025 US Breast - right limited US BREAST LTD RIGHT Radiology Routine Mass of upper outer quadrant of right breast Expected: 11/17/2024, Expires: 06/17/2025 [facility] Work Phone: Comment on above: Expected: 11/17/2024, Expires: Start: 10-19-2024 End: 10-19-2024 ambulatory 10/19/2024 9:00 AM EDT [facility] [address] [place] [address] Annemarie Anton, Warehouse Checker [address] [place] [address] General fitness Endocrinology Comment on above: General fitness Start: 09-02-2024 End: 09-02-2024 ambulatory 09/02/2024 10:00 AM EDT [facility] [address] [place] [address] [place] [address] [place] [address] Weight management Endocrinology Comment on above: Weight management Start: 08-17-2024 End: 08-17-2024 Patient encounter procedure Internal Medicine [place] Comment on above: 6 mo follow up Start: 07-15-2024 End: 07-15-2024 ambulatory 07/15/2024 12:30 PM EDT [facility] [address] [place] [address] Annemarie Anton, Warehouse Checker [address] [place] [address] General fitness Endocrinology Comment on above: General fitness Start: 07-11-2024 End: 07-11-2024 Patient encounter procedure 07/11/2024 10:30 AM EDT Office Visit Orthopaedics [address] [place], [place] [id number] Desirae Zamudio PA-C [address] [place] [address] Follow up bilateral knee pain Orthopaedics Comment on above: Follow up bilateral knee pain Start: 07-01-2024 End: 07-01-2024 ambulatory [facility] Comment on above: Dx: Degeneration of intervertebral disc of lumbar region with lower extremity pain [M51.361 (ICD-10-CM)]; Impingement of right shoulder [M25.811 (ICD-10-CM)] Weight management Start: 06-30-2024 End: 06-30-2024 Patient encounter procedure Audiology Comment on above: Dizziness [R42] Start: 06-28-2024 End: 06-28-2024 ambulatory 06/28/2024 9:15 AM EDT OT/PT/Speech Visit [facility] [address] [place], [place] [id number] Bennie Angel, PT [address] [place], [place] [id number] Dx: Degeneration of intervertebral disc of lumbar region with lower extremity pain [M51.361 (ICD-10-CM)]; Impingement of right shoulder [M25.811 (ICD-10-CM)] [facility] Comment on above: Dx: Degeneration of intervertebral disc of lumbar region with lower extremity pain [M51.361 (ICD-10-CM)]; Impingement of right shoulder [M25.811 (ICD-10-CM)] Start: 06-24-2024 End: 06-24-2024 ambulatory 06/24/2024 11:15 AM EDT OT/PT/Speech Visit [facility] [address] [place] [address] Bennie Angel, PT [address] [place], [place] [id number] Dx: Degeneration of intervertebral disc of lumbar region with lower extremity pain [M51.361 (ICD-10-CM)]; Impingement of right shoulder [M25.811 (ICD-10-CM)] [facility] Comment on above: Dx: Degeneration of intervertebral disc of lumbar region with lower extremity pain [M51.361 (ICD-10-CM)]; Impingement of right shoulder [M25.811 (ICD-10-CM)] Start: 06-24-2024 End: 06-24-2024 ambulatory 06/24/2024 9:15 AM EDT OT/PT/Speech Visit [facility] [address] [place] [address] Bennie Angel, PT [address] [place], [place] [id number] Dx: Degeneration of intervertebral disc of lumbar region with lower extremity pain [M51.361 (ICD-10-CM)]; Impingement of right shoulder [M25.811 (ICD-10-CM)] [facility] Comment on above: Dx: Degeneration of intervertebral disc of lumbar region with lower extremity pain [M51.361 (ICD-10-CM)]; Impingement of right shoulder [M25.811 (ICD-10-CM)] Start: 06-21-2024 End: 06-21-2024 ambulatory 06/21/2024 9:15 AM EDT OT/PT/Speech Visit [facility] [address] [place] [address] Bennie Angel, PT [address] [place] [address] Dx: Degeneration of intervertebral disc of lumbar region with lower extremity pain [M51.361 (ICD-10-CM)]; Impingement of right shoulder [M25.811 (ICD-10-CM)] [facility] Comment on above: Dx: Degeneration of intervertebral disc of lumbar region with lower extremity pain [M51.361 (ICD-10-CM)]; Impingement of right shoulder [M25.811 (ICD-10-CM)] Start: 06-17-2024 End: 06-17-2024 ambulatory 06/17/2024 11:45 AM EDT OT/PT/Speech Visit [facility] [address] [place] [address] Lexie Mosley, PAINTER FOREMAN [address] [place] [address] Dx: Degeneration of intervertebral disc of lumbar region with lower extremity pain [M51.361 (ICD-10-CM)]; Impingement of right shoulder [M25.811 (ICD-10-CM)] [facility] Comment on above: Dx: Degeneration of intervertebral disc of lumbar region with lower extremity pain [M51.361 (ICD-10-CM)]; Impingement of right shoulder [M25.811 (ICD-10-CM)] Start: 06-16-2024 End: 06-16-2024 Patient encounter procedure 06/16/2024 3:40 PM EDT Office Visit [facility] [address] [place] [address] Mario Osborne PA-C [address] [place] [id number] neck pain [facility] Comment on above: neck pain Start: 06-15-2024 End: 06-15-2024 Patient encounter procedure 06/15/2024 9:20 AM EDT Office Visit Internal Medicine [place] [address] [place] [address] Errol Luu MD [address] [place] [address] 6 mo follow up Internal Medicine [place] Comment on above: 6 mo follow up Start: 06-10-2024 End: 06-10-2024 ambulatory 06/10/2024 11:45 AM EDT OT/PT/Speech Visit [facility] [address] [place] [address] Lexie Mosley, PAINTER FOREMAN [address] [place] [address] Dx: Degeneration of intervertebral disc of lumbar region with lower extremity pain [M51.361 (ICD-10-CM)]; Impingement of right shoulder [M25.811 (ICD-10-CM)] [facility] Comment on above: Dx: Degeneration of intervertebral disc of lumbar region with lower extremity pain [M51.361 (ICD-10-CM)]; Impingement of right shoulder [M25.811 (ICD-10-CM)] Start: 06-09-2024 End: 06-09-2024 Patient encounter procedure 06/09/2024 10:20 AM EDT Office Visit [facility] [address] [address] Mario Osborne PA-C [address] [place] [address] Lower back pain [facility] Comment on above: Lower back pain Start: 06-07-2024 End: 06-07-2024 Follow-up encounter 06/07/2024 11:45 AM EDT OT/PT/Speech Visit [facility] [address] [place], [place] [phone] Lexie Mosley, PAINTER FOREMAN [address] [place] [address] follow up [facility] Comment on above: follow up Start: 06-03-2024 End: 06-03-2024 Patient encounter procedure 06/03/2024 9:20 AM EDT Office Visit Internal Medicine [place] [address] [place] [address] Errol Luu MD [address] [place] [address] 6 mo follow up Internal Medicine [place] Comment on above: 6 mo follow up Start: 05-30-2024 End: 05-30-2024 ambulatory 05/30/2024 9:15 AM EDT OT/PT/Speech Visit [facility] [address] [place] [facility] [address] Bennie Angel, PT [address] [place], [place] [phone] Dx: Degeneration of intervertebral disc of lumbar region with lower extremity pain [M51.361 (ICD-10-CM)]; Impingement of right shoulder [M25.811 (ICD-10-CM)] [facility] Comment on above: Dx: Degeneration of intervertebral disc of lumbar region with lower extremity pain [M51.361 (ICD-10-CM)]; Impingement of right shoulder [M25.811 (ICD-10-CM)] Start: 05-27-2024 End: 05-27-2024 ambulatory 05/27/2024 1:45 PM EDT OT/PT/Speech Visit [facility] [address] [facility], [place] [id number] Bennie Angel, PT [address] [place], [place] [phone] Dx: Degeneration of intervertebral disc of lumbar region with lower extremity pain [M51.361 (ICD-10-CM)]; Impingement of right shoulder [M25.811 (ICD-10-CM)] [facility] Comment on above: Dx: Degeneration of intervertebral disc of lumbar region with lower extremity pain [M51.361 (ICD-10-CM)]; Impingement of right shoulder [M25.811 (ICD-10-CM)] Start: 05-24-2024 End: 05-24-2024 ambulatory 05/24/2024 10:00 AM EDT [facility] [address] [place] [address] [place] [address] [place] [address] Weight management Endocrinology Comment on above: Weight management Start: 05-20-2024 End: 05-20-2024 Patient encounter procedure 05/20/2024 11:30 AM EDT Office Visit [facility] [address] [place] [address] Rosie Ratliff PA-C [address] [place], [place] [phone] shoulder req cortisone inj - mc request [facility] Comment on above: shoulder req cortisone inj - mc request Start: 05-19-2024 End: 05-19-2024 Patient encounter procedure 05/19/2024 11:30 AM EDT Office Visit OB/Gynecology [address] [place] [address] Yahaira Daniels APRN.CN [address] [place] [address] Annual OB/Gynecology Comment on above: Annual Start: 05-17-2024 End: 05-17-2024 Patient encounter procedure 05/17/2024 11:30 AM EDT Appointment Radiology [address] [place] [address] Dense breast tissue [R92.30] Radiology Comment on above: Dense breast tissue [R92.30] Start: 05-12-2024 End: 05-12-2024 ambulatory 05/12/2024 10:00 AM EDT [facility] [address] [place] [address] Bennie Angel, PT [address] [place] [address] Shoulder pain [facility] Comment on above: Shoulder pain Start: 05-11-2024 End: 05-11-2024 Patient encounter procedure 05/11/2024 8:30 AM EDT Appointment Mammogram [address] [place] [address] Encounter for other screening for malignant neoplasm of breast [Z12.39] Mammogram Comment on above: Encounter for other screening for malign ant neoplasm of breast [Z12.39] Start: 05-10-2024 Screening for malignant neoplasm of breast Mammogram Screening [facility] Start: 05-10-2024 End: 05-10-2024 Patient encounter procedure 05/10/2024 12:50 PM EDT Appointment Mammogram [address] [place] [address] Mammogram Start: 05-10-2024 End: 05-10-2024 Patient encounter procedure 05/10/2024 11:30 AM EDT Office Visit [facility] [address] [place] [address] Rosie Ratliff PA-C [address] [place] [address] shoulder req cortisone inj - mc request [facility] Comment on above: shoulder req cortisone inj - mc request Start: 05-09-2024 End: 05-09-2024 Patient encounter procedure 05/09/2024 10:30 AM EDT Office Visit Orthopaedics [address] [place], [place] [address] Desirae Zamudio PA-C [address] [place] [address] Follow up bilateral knee pain Orthopaedics Comment on above: Follow up bilateral knee pain Start: 04-15-2024 End: 04-15-2024 Patient encounter procedure 04/15/2024 10:00 AM EST Office Visit Orthopaedics [address] [place] [address] Desirae Zamudio PA-C [address] [place] [address] Follow up bilateral knee pain Orthopaedics Comment on above: Follow up bilateral knee pain Start: 04-11-2024 End: 04-11-2024 Patient encounter procedure 04/11/2024 11:30 AM EST Office Visit OB/Gynecology [address] [place] [address] Yahaira Daniels APRN.CNM [address] [place] [address] Annual OB/Gynecology Comment on above: Annual Start: 04-05-2024 End: 04-05-2024 ambulatory 04/05/2024 10:00 AM EST [employer] [facility] Endocrinology [address] [place] [address] [place] [address] [place] [address] Weight management Endocrinology Comment on above: Weight management Start: 03-30-2024 End: 03-30-2024 Patient encounter procedure [facility] Endoscopy Comment on above: colon Start: 03-28-2024 End: 03-28-2024 Patient encounter procedure 03/28/2024 10:30 AM EST Office Visit Orthopaedics [address] [place] [address] Desirae Zamudio PA-C [address] [place] [address] Follow up bilateral knee pain Orthopaedics Comment on above: Follow up bilateral knee pain Start: 03-24-2024 End: 03-24-2024 ambulatory 03/24/2024 10:00 AM EST [facility] [address] [place] [address] Laura Javier, Warehouse Checker [address] [place] [address] Weight management Endocrinology Comment on above: Weight management Start: 03-23-2024 End: 03-23-2024 Follow-up encounter 03/23/2024 9:00 AM EST [facility] [address] [place] [address] Igor Blair, CERAMIC ENGINEER.CHROME CLEANER [address] [place] [address] [facility] Follow Up Neurology Comment on above: Virtual Autonomic Follow Up Start: 03-14-2024 End: 03-14-2024 Patient encounter procedure 03/14/2024 9:15 AM EST Office Visit Audiology [address] [address] Sandhya Perez, PhD [address] [place] [address] Dizziness [R42] Audiology Comment on above: Dizziness [R42] Start: 03-11-2024 End: 03-11-2024 Anesthesia consultation 03/11/2024 10:00 AM EST PAT Pre Anesthesia [address] [place] [address] 1, Pacc [place] [address] [place] [address] colonoscopy declined vv dos 2/ Pre Anesthesia Comment on above: colonoscopy declined vv dos 2/19 Start: 03-07-2024 End: 03-07-2024 Patient encounter procedure 03/07/2024 10:45 AM EST Office Visit OB/Gynecology [address] [place] [address] Yahaira Daniels, MARCK.CNM [address] [place] [address] Annual OB/Gynecology Comment on above: Annual Start: 03-01-2024 End: 03-01-2024 ambulatory 03/01/2024 9:00 AM EST [facility] [address] [place] [address] [place] [address] [place] [address] Weight management Endocrinology Comment on above: Weight management Start: 02-29-2024 End: 02-29-2024 Patient encounter procedure 02/29/2024 9:00 AM EST Office Visit Orthopaedics [address] [place] [address] Desirae Zamudio PA-C [address] [place] [address] Follow up bilateral knee pain Orthopaedics Comment on above: Follow up bilateral knee pain Start: 02-15-2024 End: 02-15-2024 Social Work 02/15/2024 12:00 PM EST Social Work Endocrinology [address] [place] [address] Kevin Dawson, [facility] [address] [place] [address] Weight management Endocrinology Comment on above: Weight management Start: 02-12-2024 End: 02-12-2024 Patient encounter procedure 02/12/2024 8:15 AM EST Office Visit OB/Gynecology [address] [place], [place] [phone] Yahaira Daniels APRN.CN [address] [place] [address] Annual OB/Gynecology Comment on above: Annual Start: 02-05-2024 End: 02-05-2024 Patient encounter procedure 02/05/2024 9:30 AM EST Office Visit [facility] [address] [place] [address] Rosie Ratliff PA-C [address] [place] [address] bilat shoulder [facility] Comment on above: bilat shoulder Start: 02-02-2024 End: 02-02-2024 ambulatory 02/02/2024 9:45 AM EST OT/PT/Speech Visit [facility] [address] [place] [address] Rosie Santoyo, PT Dizziness [R42] [facility] Comment on above: Dizziness [R42] Start: 01-27-2024 End: 01-27-2024 ambulatory 01/27/2024 9:00 AM EST [facility] [address] [place] [address] Mario Toth, Therapist [address] [place], [place] [id number] Fibromyalgia [M79.7] Pain Recovery Comment on above: Fibromyalgia [M79.7] Start: 01-25-2024 End: 01-25-2024 Nutrition therapy 01/25/2024 3:00 PM EST [facility] Main [address] [place] [address] [place] [address] Nutrition, diet, weight loss Diabetic Education Main X20 Comment on above: Nutrition, diet, weight loss Start: 01-21-2024 End: 01-21-2024 Patient encounter procedure Neurology Pain Comment on above: Diffuse pain [R52] Start: 01-11-2024 End: 01-11-2024 Patient encounter procedure 01/11/2024 8:15 AM EST Office Visit OB/Gynecology [address] [place] [address] Yahaira Daniels APRN.[facility] [address] [place] [address] Annual OB/Gynecology Comment on above: Annual Start: 01-06-2024 End: 01-06-2024 Patient encounter procedure Otolaryngology Comment on above: Tinnitus, bilateral,Dizziness Start: 01-06-2024 End: 01-06-2024 Patient encounter procedure Endocrinology Comment on above: Class 3 severe obesity due to excess ubaldo ories without serious comorbidity with body mass index (BMI) of 40.0 to 44.9 in adult (HCC) [E66.01, Z68.41] Tinnitus, bilateral [H93.13] Start: 01-04-2024 End: 01-04-2024 ambulatory 01/04/2024 8:00 AM EST OT/PT/Speech Visit [facility] [address] [place] [address] ORosie Malagon, PT Tinnitus, bilateral [H93.13]; Dizziness [R42 [facility] Comment on above: Tinnitus, bilateral [H93.13]; Dizziness [R42 Start: 12-28-2023 End: 12-28-2023 Procedure Neurology Comment on above: NEURO QSART (Order #[id number]) on 11/25 NEURO CARDIO AUTONOM IC REFLEX W/WO TILT (Order #[id number]) on 11/26/23 QSART ANS TILT Start: 12-17-2023 End: 12-17-2023 Patient encounter procedure Cardiology Comment on above: Pre-syncope [R55]; Orthostatic lighthead edness [R42]; Palpitations [R00.2] Left lower quadrant abdominal pain [R10.32]; Periumbilical pain [R10.33]; Periumbilical hernia [K42.9] Start: 12-08-2023 End: 12-08-2023 Patient encounter procedure 12/08/2023 9:40 AM EDT Office Visit Cardiology [address] [place] [address] Pre-syncope [R55]; Orthostatic lightheadedness [R42]; Palpitations [R00.2] Cardiology Comment on above: Pre-syncope [R55]; Orthostatic lighthead edness [R42]; Palpitations [R00.2] Start: 12-07-2023 End: 12-07-2023 Patient encounter procedure General Surgery Comment on above: Special screening for malignant neoplasm s, colon [Z12.11] Special screening fo r malignant neoplasms, colon Start: 12-04-2023 End: 03-04-2024 Lipid 1996 panel - Serum or Plasma LIPID PANEL BASIC Lab Routine Hyperlipidemia, mixed Expected: 12/04/2023, Expires: 03/04/2024 [facility] Work Phone: Comment on above: Expected: 12/04/2023, Expires: Start: 12-03-2023 End: 12-03-2023 ambulatory 12/03/2023 1:00 PM EDT [facility] [address] [place] [address] Mario Toth, Therapist [address] [place] [address] Fibromyalgia [M79.7] Pain Recovery Comment on above: Fibromyalgia [M79.7] Start: 11-26-2023 End: 02-25-2024 CBC W Auto Differential panel - Blood [facility] Comment on above: Expected: 11/26/2023, Expires: Start: 11-26-2023 End: 02-25-2024 Thyrotropin [Units/volume] in Serum or Plasma [facility] Comment on above: Expected: 11/26/2023, Expires: Start: 11-26-2023 End: 02-25-2024 Thyroxine (T4) free [Mass/volume] in Serum or Plasma [facility] Comment on above: Expected: 11/26/2023, Expires: Start: 11-26-2023 End: 11-26-2023 Patient encounter procedure 11/26/2023 10:00 AM EDT Office Visit Neurology [address] [place] [address] Igor Blair, CERAMIC ENGINEER.CHROME CLEANER [address] [place], [place] [id number] POTS Neurology Comment on above: POTS Start: 11-17-2023 End: 11-17-2023 ambulatory 11/17/2023 10:45 AM EDT OT/PT/Speech Visit [facility] [address] [place], [place] [id number] Bennie Angel, PT [address] [place], [place] [id number] Shoulder pain (both sides) [facility] Comment on above: Shoulder pain (both sides) Start: 11-03-2023 End: 11-03-2023 Patient encounter procedure 11/03/2023 10:30 AM EDT Office Visit [facility] [address] [place] [address] Rosie Ratliff PA-C [address] [place] [address] Consult rt shoulder req cortisone injection [facility] Comment on above: Consult rt shoulder req cortisone inject ion Start: 11-02-2023 End: 11-02-2023 ambulatory 11/02/2023 11:30 AM EDT OT/PT/Speech Visit [facility] [address] [place] [address] Thompson Banda, PT [address] [place], [place] [phone] Impingement of left shoulder [M25.812] [facility] Comment on above: Impingement of left shoulder [M25.812] Start: 10-28-2023 End: 10-28-2023 Patient encounter procedure 10/28/2023 10:45 AM EDT Office Visit Dermatology [address] [place] [address] Vance Gray MD [address] [place] [address] Rosacea Follow-Up Dermatology Comment on above: Rosacea Follow-Up Start: 10-22-2023 End: 10-22-2023 Patient encounter procedure 10/22/2023 10:00 AM EDT Office Visit Neurology Pain [address] [place] [address] Ciera King DO [address] [place] [address] Diffuse pain [R52] Neurology Pain Comment on above: Diffuse pain [R52] Start: 10-13-2023 Screening for malignant neoplasm of colon [facility] Start: 10-11-2023 Covid-19 Vaccine () Covid-19 Vaccine () [facility] Start: 10-11-2023 Covid-19 Vaccine () Covid-19 Vaccine () [facility] Start: 10-11-2023 Influenza vaccination [facility] Start: 10-01-2023 End: 10-01-2023 Patient encounter procedure 10/01/2023 8:40 AM EDT Office Visit Internal [facility] [address] [place], [place] [address] Errol Luu MD [address] [place], [place] [phone] weight follow up [facility] Comment on above: weight follow up Start: 09-03-2023 End: 09-03-2023 Patient encounter procedure 09/03/2023 10:00 AM EDT Office Visit Neurology Pain [address] [place] [address] Ciera King DO [address] [place], [place] [phone] Diffuse pain [R52] Neurology Pain Comment on above: Diffuse pain [R52] Start: 07-31-2023 End: 07-31-2023 Patient encounter procedure 07/31/2023 9:20 AM EDT Office Visit Internal Medicine [place] [address] [place], [place] [phone] Tico Root APRN.BATCH AND FURNACE MANAGER [address] [place], [place] [address] weight follow up Internal Medicine [facility] Comment on above: weight follow up Start: 07-17-2023 End: 07-17-2023 Patient encounter procedure 07/17/2023 10:50 AM EDT Office Visit [facility] [address] [place] [address] Rosie Ratliff PA-C [address] [place] [address] Express care fu xray in system cute pain of left shoulder [M25.512] [facility] Comment on above: Express care fu xray in system cute pain of left shoulder [M25.512] Start: 07-15-2023 End: 07-15-2023 Patient encounter procedure 07/15/2023 10:45 AM EDT Office Visit Dermatology [address] [place] [address] Vance Gray MD [address] [place] [address] Rosacea [L71.9] Dermatology Comment on above: Rosacea [L71.9] Start: 06-26-2023 End: 09-25-2023 Hepatitis B virus surface Ag [Presence] in Serum [facility] Comment on above: Expected: 06/26/2023, Expires: 4 Start: 06-26-2023 End: 09-25-2023 Hepatitis C virus Ab [Presence] in Serum [facility] Comment on above: Expected: 06/26/2023, Expires: 4 Start: 06-26-2023 End: 09-25-2023 HIV 1+2 Ab [Presence] in Serum or Plasma by Immunoassay [facility] Comment on above: Expected: 06/26/2023, Expires: 4 Start: 06-26-2023 End: 09-25-2023 SYPHILIS TOTAL W/REFLEX [facility] Work Phone: Comment on above: Expected: 06/26/2023, Expires: 4 Start: 02-19-2023 Screening for malignant neoplasm of breast Mammogram Screening [facility] Start: 10-31-2022 End: 12-31-2022 25-hydroxyvitamin D3 [Mass/volume] in Serum or Plasma VITAMIN D 25 HYDROXY Lab Routine Weight gain Expected: 10/31/2022, Expires: 12/31/2022 [facility] Work Phone: Comment on above: Expected: 10/31/2022, Expires: 3 Start: 10-31-2022 End: 12-31-2022 KYLE BY IFA SCREEN KYLE BY IFA SCREEN Lab Routine Diffuse pain Chronic bilateral low back pain without sciatica Expected: 10/31/2022, Expires: 12/31/2022 [facility] Work Phone: Comment on above: Expected: 10/31/2022, Expires: 3 Start: 10-31-2022 End: 12-31-2022 C reactive protein [Mass/volume] in Serum or Plasma C-REACTIVE PROTEIN (CRP) Lab Routine Diffuse pain Chronic bilateral low back pain without sciatica Expected: 10/31/2022, Expires: 12/31/2022 [facility] Work Phone: Comment on above: Expected: 10/31/2022, Expires: 3 Start: 10-31-2022 End: 12-31-2022 CBC W Auto Differential panel - Blood CBC + DIFF Lab Routine Weight gain Expected: 10/31/2022, Expires: 12/31/2022 [facility] Work Phone: Comment on above: Expected: 10/31/2022, Expires: 3 Start: 10-31-2022 End: 12-31-2022 Comprehensive metabolic 2000 panel - Serum or Plasma COMP METABOLIC PANEL Lab Routine Weight gain Expected: 10/31/2022, Expires: 12/31/2022 [facility] Work Phone: Comment on above: Expected: 10/31/2022, Expires: 3 Start: 10-31-2022 End: 12-31-2022 Erythrocyte sedimentation rate SED RATE WESTERGREN Lab Routine Diffuse pain Chronic bilateral low back pain without sciatica Expected: 10/31/2022, Expires: 12/31/2022 [facility] Work Phone: Comment on above: Expected: 10/31/2022, Expires: Start: 10-31-2022 End: 12-31-2022 Ferritin [Mass/volume] in Serum or Plasma FERRITIN BLD Lab Routine Weight gain Expected: 10/31/2022, Expires: 12/31/2022 [facility] Work Phone: Comment on above: Expected: 10/31/2022, Expires: Start: 10-31-2022 End: 12-31-2022 Iron and Iron binding capacity panel - Serum or Plasma IRON + TIBC Lab Routine Weight gain Expected: 10/31/2022, Expires: 12/31/2022 [facility] Work Phone: Comment on above: Expected: 10/31/2022, Expires: Start: 10-31-2022 End: 12-31-2022 Rheumatoid factor [Units/volume] in Serum or Plasma RHEUMATOID FACTOR BL Lab Routine Diffuse pain Chronic bilateral low back pain without sciatica Expected: 10/31/2022, Expires: 12/31/2022 [facility] Work Phone: Comment on above: Expected: 10/31/2022, Expires: Start: 10-31-2022 End: 12-31-2022 Thyrotropin [Units/volume] in Serum or Plasma TSH BLD Lab Routine Weight gain Expected: 10/31/2022, Expires: 12/31/2022 [facility] Work Phone: Comment on above: Expected: 10/31/2022, Expires: 3 Start: 10-31-2022 End: 12-31-2022 TOX SCREEN ROUT UR TOX SCREEN ROUT UR Lab Routine Morbid obesity due to excess calories (HCC) Expected: 10/31/2022, Expires: 12/31/2022 [facility] Work Phone: Comment on above: Expected: 10/31/2022, Expires: 3 Start: 10-10-2022 Covid-19 Vaccine () Covid-19 Vaccine () [facility] Start: 10-10-2022 Influenza vaccination [facility] Start: 04-17-2022 Mammography [facility] Start: 04-17-2022 Screening for malignant neoplasm of breast Mammogram Screening [facility] Start: 10-10-2021 Influenza vaccination [facility] Start: 06-07-2021 COVID-19 VACCINE (3 - Booster for Pfizer series) COVID-19 VACCINE (3 - Booster for Pfizer series) [facility] Start: 06-07-2021 COVID-19 VACCINE (4 - Booster) COVID-19 VACCINE (4 - Booster) [facility] Start: 06-07-2021 COVID-19 VACCINE (4 - Pfizer series) COVID-19 VACCINE (4 - Pfizer series) [facility] Start: 10-10-2020 Influenza vaccination INFLUENZA (#1) [facility] Start: 1997 Hepatitis B Vaccine (1 of 3 - 19+ 3-dose series) Hepatitis B Vaccine (1 of 3 - 19+ 3-dose series) [facility] Start: 1978 HEPATITIS B (1 of 3 - 3-dose series) HEPATITIS B (1 of 3 - 3-dose series) [facility] Start: 1978 Hepatitis B Vaccine (1 of 3 - 3-dose series) Hepatitis B Vaccine (1 of 3 - 3-dose series) [facility] BACTERIAL VAGINOSIS NAAT BACTERI AL VAGINOSIS NAAT Lab Routine Screen for STD (sexually transmitted disease) 06/26/2023 9:55 AM EDT [facility] End: 07-12-2022 Bx breast w/device 1st lesion ultrasound guid US BIOPSY BREAST RT Radiology Routine Abnormal finding on breast imaging 1 Occurrences starting 06/12/2021 until 07/12/2022 [facility] Work Phone: Comment on above: 1 Occurrences starting 06/12/2021 until 07/12/2022 JORDAN/TRICHOMONAS NAAT JORDAN /TRICHOMONAS NAAT Lab Routine Screen for STD (sexually transmitted disease) 06/26/2023 9:55 AM EDT [facility] Chlamydia trachomatis+Neisseria gonorrhoeae DNA [Presence] in Unspecified specimen by EMIL with probe detection GONORRHEA/CHLAMYDIA NAAT Lab Routine Screen for STD (sexually transmitted disease) 06/26/2023 9:55 AM EDT [facility] End: 01-01-2025 CT Abdomen and Pelvis WO contrast CT ABD/PEL WO IVCON Radiology Routine Left lower quadrant abdominal pain Periumbilical pain Periumbilical hernia 1 Occurrences starting 12/03/2023 until 01/01/2025 [facility] Work Phone: Comment on above: 1 Occurrences starting 12/03/2023 until 01/01/2025 CT Abdomen and Pelvi s WO contrast CT ABD/PEL WO IVCON Radiology Routine Left lower quadrant abdominal pain Periumbilical pain Periumbilical hernia 12/17/2023 10:54 AM EST [facility] Work Phone: End: 12-12-2024 DBT Breast - bilateral screening DOMINIK SCREENING W JUVE Radiology Routine Encounter for other screening for malignant neoplasm of breast 1 Occurrences starting 11/13/2023 until 12/12/2024 [facility] Work Phone: Comment on above: 1 Occurrences starting 11/13/2023 until 12/12/2024 DBT Breast - bilater al screening DOMINIK SCREENING W JUVE Radiology Routine Encounter for other screening for malignant neoplasm of breast 05/10/2024 1:10 PM EDT [facility] Work Phone: End: 06-05-2022 Diagnostic mammography computer-aided detcj uni DOMINIK DIAGNOSTIC RT Radiology Routine Abnormal mammogram 1 Occurrences starting 05/06/2021 until 06/05/2022 [facility] Work Phone: Comment on above: 1 Occurrences starting 05/06/2021 until 06/05/2022 End: 11-25-2024 Echocardiography ECHO Cardiology Routine Pre-syncope Orthostatic lightheadedness Palpitations 1 Occurrences starting 11/26/2023 until 11/25/2024 [facility] Comment on above: 1 Occurrences starting 11/26/2023 until 11/25/2024 INFLUENZA VACCINE, A GE 6 MO - 64 YR, QUADRIVALENT (AFLURIA, FLULAVAL, FLUZONE) INFLUENZA VACCINE, AGE 6 MO - 64 YR, QUADRIVALENT (AFLURIA, FLULAVAL, FLUZONE) Immunization/Injection Routine Encounter for immunization Ordered: 10/31/2022 [facility] Work Phone: Comment on above: Ordered: 10/31/2022 End: 06-20-2023 DOMINIK SCREENING DOMINIK SCREENING Radiology Routine Encounter for screening mammogram for breast cancer 1 Occurrences starting 05/21/2022 until 06/20/2023 [facility] Work Phone: Comment on above: 1 Occurrences starting 05/21/2022 until 06/20/2023 NEURO CARDIO AUTONOM IC REFLEX W/WO TILT NEURO CARDIO AUTONOMIC REFLEX W/WO TILT Procedures Routine Pre-syncope Orthostatic lightheadedness Ordered: 11/26/2023 [facility] Comment on above: Ordered: 11/26/2023 NEURO QSART NEURO QSART Proc edures Routine Temperature intolerance Ordered: 11/26/2023 [facility] Comment on above: Ordered: 11/26/2023 OUTSIDE VENDOR CARDI AC OUTPATIENT EXTENDED RHYTHM RECORDING (WITHOUT TELEMETRY) OUTSIDE VENDOR CARDIAC OUTPATIENT EXTENDED RHYTHM RECORDING (WITHOUT TELEMETRY) Holter Routine Pre-syncope Orthostatic lightheadedness Palpitations Ordered: 11/26/2023 [facility] Work Phone: Comment on above: Ordered: 11/26/2023 End: 12-06-2024 Screening colonoscopy COLONOSCOPY SCREENING Endoscopy Routine Special screening for malignant neoplasms, colon 1 Occurrences starting 12/07/2023 until 12/06/2024 [facility] Work Phone: Comment on above: 1 Occurrences starting 12/07/2023 until 12/06/2024 SURGICAL PATHOLOGY [facility] Work Phone: Comment on above: Release Upon Ordering for 1 Occurrences starting 07/03/2021, 1 completed Tissue Pathology bio psy report [facility] Work Phone: Comment on above: Release Upon Ordering for 1 Occurrences starting 03/30/2024, 1 completed End: 06-10-2025 US Breast - bilateral US BREAST COMPLETE BILATERAL Radiology Routine Dense breast tissue 1 Occurrences starting 05/11/2024 until 06/10/2025 [facility] Work Phone: Comment on above: 1 Occurrences starting 05/11/2024 until 06/10/2025 End: 06-12-2025 US Breast - right limited US BREAST LTD RIGHT Radiology Routine Abnormal screening mammogram 1 Occurrences starting 05/13/2024 until 06/12/2025 [facility] Work Phone: Comment on above: 1 Occurrences starting 05/13/2024 until 06/12/2025 End: 06-05-2022 Us breast uni real time with image limited [facility] Work Phone: Comment on above: 1 Occurrences starting 05/06/2021 until 06/05/2022 VESTIBULAR TEST BATTERY VESTIBUL AR TEST BATTERY Audiology Routine Dizziness Vertigo Ordered: 01/06/2024 [facility] Work Phone: Comment on above: Ordered: 01/06/2024 End: 03-02-2025 XR Knee - bilateral 4 Views XR KNEE GENERAL 4V AP BOTH/PA BOTH/LAT/MERC BILATERAL Radiology Routine Pain in both knees, unspecified chronicity 1 Occurrences starting 02/01/2024 until 03/02/2025 [facility] Work Phone: Comment on above: 1 Occurrences starting 02/01/2024 until 03/02/2025 XR Knee - bilateral 4 Views XR KNEE GENERAL 4V AP BOTH/PA BOTH/LAT/MERC BILATERAL Radiology Routine Pain in both knees, unspecified chronicity 04/29/2024 12:43 PM EDT [facility] Work Phone: End: 11-27-2024 XR Shoulder - right 3 Views XR SHOULDER GENERAL 3V OR MORE AP/TRUE AP/OTHER RIGHT Radiology Routine Pain 1 Occurrences starting 10/29/2023 until 11/27/2024 [facility] Work Phone: Comment on above: 1 Occurrences starting 10/29/2023 until 11/27/2024 XR Shoulder - right 3 Views XR SHOULDER GENERAL 3V OR MORE AP/TRUE AP/OTHER RIGHT Radiology Routine Pain 10/29/2023 9:33 AM EDT [facility] End: 07-16-2025 XR Thoracic spine AP and Lateral and Swimmers XR THORACIC GENERAL 3V AP/LAT/SWIMMERS Radiology Routine Chronic midline thoracic back pain 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 1 Occurrences starting 06/16/2024 until 07/16/2025 [facility] Work Phone: Comment on above: 1 Occurrences starting 06/16/2024 until 07/16/2025 XR Thoracic spine AP and Lateral and Swimmers XR THORACIC GENERAL 3V AP/LAT/SWIMMERS Radiology Routine Chronic midline thoracic back pain 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 06/17/2024 10:37 AM EDT [facility] Work Phone: [facility] Immunizations Immunization Date Immunization Notes Care Provider Sushil [facility] 12-03-2023 COVID-19 vaccine, ag e 12+ yr (PFIZER-BIONTECH COMIRNATY) Tico Root CERAMIC ENGINEER.BATCH AND FURNACE MANAGER Work Phone: [facility] 12-03-2023 influenza, seasonal, injectable Ticoroe Root CERAMIC ENGINEER.BATCH AND FURNACE MANAGER Work Phone: [facility] 04-12-2021 COVID-19 vaccine, ag e 12+ yr (PFIZER-BIONTECH - MUNGUIA TOP) Errol Luu MD Work Phone: [facility] Work Phone: 05-11-2020 COVID-19 vaccine, ag e 12+ yr (PFIZER-BIONTECH - PURPLE TOP) Errol Luu MD Work Phone: [facility] Work Phone: 05-04-2020 COVID-19 vaccine, ag e 12+ yr (PFIZER-BIONTECH - PURPLE TOP) Errol Luu MD Work Phone: [facility] Work Phone: 04-19-2018 tetanus toxoid, reduced diphtheria toxoid, and acellular pertussis vaccine, adsorbed Errol Luu MD Work Phone: [facility] Work Phone: 03-16-2018 influenza virus vaccine, unspecified formulation Edin Jimenez PA-C Work Phone: [facility] 05-10-2000 hepatitis B vaccine, unspecified formulation Tico Root APRN.BATCH AND FURNACE MANAGER Work Phone: [facility] NEGATED: Highlighted row has not occurred!10-31-2022 influenza, injectable, quadrivalent, contains preservative Tico Root APRN.BATCH AND FURNACE MANAGER Work Phone: [facility] Work Phone: Comment on above: Deferred: Postponed Payers Date Payer Category Payer Medicaid [id number] 2016 Medicaid UHC MEDICAID [employer] MEDICAID [id number] 2016-Present [phone] [address] [place] [address] Medicaid [id number] 2016 Medicaid [id number] Self-pay SELF PAY INSURANCE [id number] Unknown SELF PAY INSURANCE [id number] Unknown SELF PAY INSURANCE [id number] Social History Date Type Detail Facility Start: 05-04-2020 End: 07-29-2024 Tobacco smoking status ILIS Unknown if ever smoked [facility] Start: 1980 Sex Assigned At Female C [facility] Start: 10-15-2010 End: 12-02-2021 Tobacco smoking status NHIS Never smoked tobacco [facility] Start: 04-17-2021 End: 05-19-2024 Alcohol intake Current non-drinker of alcohol (finding) [facility] Start: 05-11-2019 End: 07-15-2022 History SDOH Alcohol Frequency 1 [facility] Start: 05-11-2019 End: 12-20-2019 History SDOH Alcohol Std Drinks 98 [facility] Start: 05-11-2019 End: 07-15-2022 History SDOH Social Connections Phone 5 [facility] Start: 05-11-2019 History SDOH Social Connections Meetings 3 [facility] Start: 12-20-2019 End: 07-15-2022 History SDOH Social Connections Living 8 [facility] Start: 12-20-2019 End: 07-15-2022 History SDOH Stress 2 [facility] Start: 05-11-2019 End: 07-15-2022 History SDOH Financial 4 [facility] Start: 05-11-2019 Education 15 [facility] Start: 07-07-2020 End: 12-02-2021 Exposure to SARS-CoV-2 (event) Not sure [facility] Start: 07-13-2021 End: 07-23-2021 Exposure to SARS-CoV-2 (event) Unable to assess [facility] Work Phone: Start: 10-15-2010 End: 12-02-2021 Tobacco use and exposure Smokeless tobacco non-user [facility] Start: 07-15-2022 History SDOH Alcohol Std Drinks 0 [facility] Start: 07-14-2022 End: 12-03-2023 History of Social function [facility] Start: 07-14-2022 End: 12-03-2023 Social connection and isolation panel [facility] Do you belong to any clubs or organizations such as denominational groups, unions, fraternal or athletic groups, or school groups? No [facility] Are you now , , , , never or living with a partner? Living with partner [facility] How often to you hav e a drink containing alcohol? Never [facility] Start: 01-12-[address] inks containing alcohol do you have on a typical day? Patient does not drink [facility] How hard is it for y ou to pay for the very basics like food, housing, medical care, and heating Not very hard [facility] Do you feel stress - tense, restless, nervous, or anxious, or unable to sleep at night because your mind is troubled all the time - these days [OSQ] Very much [facility] (I/We) worried tanvi er (my/our) food would run out before (I/we) got money to buy more. Never true [facility] In the past 12 month s, was there a time when you were not able to pay the mortgage or rent on time? Yes [facility] Start: 04-17-2018 Gender identity Identifies as female gender (finding) [facility] Start: 03-23-2023 Sexual orientation Bisexual (finding ) [facility] Do you feel stress - tense, restless, nervous, or anxious, or unable to sleep at night because your mind is troubled all the time - these days [OSQ] Only a little [facility] Are you now , , , , never or living with a partner? Never [facility] How hard is it for y ou to pay for the very basics like food, housing, medical care, and heating Somewhat hard [facility] (I/We) worried [place] (my/our) food would run out before (I/we) got money to buy more. Sometimes true [facility] Sex Female (finding) [facility] Functional Status Date Assessment Result Facility 08-11-2013 Are you deaf, or do you have serious difficulty hearing No 08/11/2013 3:58 PM EDT Papito Mendoza LPN No [facility] 08-11-2013 Are you blind, or do you have serious difficulty seeing, even when wearing glasses No 08/11/2013 3:58 PM EDT Papito Mendoza LPN No [facility] 08-11-2013 Do you have serious difficulty walking or climbing stairs No 08/11/2013 3:58 PM EDT Papito Mendoza LPN No [facility] 08-11-2013 Do you have difficul ty dressing or bathing No 08/11/2013 3:58 PM EDT Papito Mendoza LPN No [facility] 08-11-2013 Because of a physica l, mental, or emotional condition, do you have difficulty doing errands alone such as visiting a physician's office or shopping No 08/11/2013 3:58 PM EDT Papito Mendoza LPN No [facility] Mental Status Date Assessment Result Facility 08-11-2013 Because of a physica l, mental, or emotional condition, do you have serious difficulty concentrating, remembering, or making decisions No 08/11/2013 3:58 PM EDT Papito Mendoza LPN No [facility] Clinical Notes 08-06-2020 to 07-11-2024 Desirae Zamudio PA-C - 07/11/2024 11:17 AM EDTFSeema malcolm MA - 07/11/2024 10:57 AM EDTPatient InstructionsMario Osborne PA-C - 06/16/2024 3:40 PM EDTPatient InstructionsPatient Instructions Note Date & Type Note Facility 07-11-2024 Note HNO ID: [id number] Author: DESIRAE ZAMUDIO PA-C Service: ? Author Type: Physician Recreational Therapy Aide Type: Progress Notes Filed: 07/11/2024 11:18 Note Text: Patient presents for bilateral knee corticosteroid injections, has an upcoming trip to [place] next week. Large Joint Arthro/Inj: bilateral knee joints 07/11/2024 11:17 AM The procedure site was prepped in the usual sterile fashion. Site: bilateral knee joints Medications (Right): 6 mg betamethasone acetate-betamethasone sodium phosphate 6 mg/mL Medications (Left): 6 mg betamethasone acetate-betamethasone sodium phosphate 6 mg/mL Anesthetics (Right): 5 mL lidocaine (PF) 10 mg/mL (1 %) Anesthetics (Left): 5 mL lidocaine (PF) 10 mg/mL (1 %) Outcome: Tolerated well, no immediate complications Post-injection instructions were reviewed with the patient and the patient voiced understanding of these instructions. Informed Consent Consent Obtained: Verbal Waterfall Protocol A moment to CARE was completed. SIGN IN Sign in communication not applicable due to emergent procedure. Personnel directly involved with the procedure wore the appropriate PPE. Special Equipment: N/A Patient/Surrogate Stated/Verified: Patient name, Date of , Relevant allergies and Intended procedure TIME OUT Relevant labs, photos, and/or imaging studies have been reviewed. Consent documented and matches the intended procedure. Correct side/site marked and visible. Medications required for procedure verified. No fire risk assessment and interventions applicable. No implant(s) inserted. SIGN OUT No specimen collected. No post-procedure POC communication to the patient's multidisciplinary team (including the bedside nurse for hospitalized patients) applicable. [facility] 07-11-2024 History of Present illness Narrative Associated Order(s): Large Joint Arthro/Inj: bilateral knee joints Post-Procedure Diagnose(s): Primary osteoarthritis of both knees Patient presents for bilateral knee corticosteroid injections, has an upcoming trip to [place] next week. Large Joint Arthro/Inj: bilateral knee joints 07/11/2024 11:17 AM The procedure site was prepped in the usual sterile fashion. Site: bilateral knee joints Medications (Right): 6 mg betamethasone acetate-betamethasone sodium phosphate 6 mg/mL Medications (Left): 6 mg betamethasone acetate-betamethasone sodium phosphate 6 mg/mL Anesthetics (Right): 5 mL lidocaine (PF) 10 mg/mL (1 %) Anesthetics (Left): 5 mL lidocaine (PF) 10 mg/mL (1 %) Outcome: Tolerated well, no immediate complications Post-injection instructions were reviewed with the patient and the patient voiced understanding of these instructions. Informed Consent Consent Obtained: Verbal Waterfall Protocol A moment to CARE was completed. SIGN IN Sign in communication not applicable due to emergent procedure. Personnel directly involved with the procedure wore the appropriate PPE. Special Equipment: N/A Patient/Surrogate Stated/Verified: Patient name, Date of , Relevant allergies and Intended procedure TIME OUT Relevant labs, photos, and/or imaging studies have been reviewed. Consent documented and matches the intended procedure. Correct side/site marked and visible. Medications required for procedure verified. No fire risk assessment and interventions applicable. No implant(s) inserted. SIGN OUT No specimen collected. No post-procedure POC communication to the patient's multidisciplinary team (including the bedside nurse for hospitalized patients) applicable. Patient presents with: Left Knee - Follow Up Right Knee - Follow Up: 9 weeks post visit OA bilateral knees - Here for injections AMB ROOMING INTAKE FLOWSHEET DATA Pain Pain Level: 6 Pain Location: Knee-Right Description: Aching, Sharp, Stiffness Duration Amount of Time: 5 Duration Units: Years Frequency: Continuous Intervention/Comfort measure: Medication, Reposition, Relaxation Patient here for injections bilateral knees.Using Hurst balm for the pain. documented in this encounter [facility] 07-11-2024 Note HNO ID: [id number] Author: SEEMA FOFANA MA Service: ? Author Type: Director Foundation Type: Progress Notes Filed: 07/11/2024 11:18 Note Text: Patient presents with: Left Knee - Follow Up Right Knee - Follow Up: 9 weeks post visit OA bilateral knees - Here for injections AMB ROOMING INTAKE FLOWSHEET DATA Pain Pain Level: 6 Pain Location: Knee-Right Description: Aching, Sharp, Stiffness Duration Amount of Time: 5 Duration Units: Years Frequency: Continuous Intervention/Comfort measure: Medication, Reposition, Relaxation Patient here for injections bilateral knees.Using Hurst balm for the pain. [facility] 06-30-2024 Note HNO ID: [id number] Author: FABBY GARCIA AUD Service: ? Author Type: Human Resource Internship Type: Progress Notes Filed: 06/30/2024 15:32 Note Text: [facility] [place] [facility] Department Section of Audiology Vestibular Test Battery Report Name: Lyndon Burroughs [facility]#: [id number] Date of Service: 06/30/2024 Date of : 1980 Age: [age] year old Referred by: Merlene Mchugh PA-C And is a patient of Errol Luu MD Referred for: Evaluation of suspected change in hearing, tinnitus, or balance. Referral documented: In an order in [facility] Pretest Instructions: All pretest instructions were completed prior to testing: no alcohol, no medication for dizziness/motion sickness, no sedatives (sleep aids, tranquilizers, antihistamines), no eye makeup and only have a light meal prior to testing. Impressions and Recommendations OVERALL IMPRESSIONS: Essentially vestibular evaluation. Symmetrical and robust peripheral vestibular responses and normal central vestibular function. Low likelihood of active vestibular system involvement to account for symptoms. However, observed some subclinical left-beating nystagmus (2-4 d/s) during horizontal head-shake, left Ruba-Hallpike and head roll left testing which could suggest a subtle asymmetry; non-localizing. It is uncertain if this would account for patient's reported symptoms of lightheadedness upon standing, flashing lights in vision, and seeing spots. Clinical correlation needed. The remainder of today's evaluation revealed the following: - Normal low and high frequency vestibulo-ocular reflex (VOR) function as evident by robust and symmetrical monothermal caloric responses and video head impulse testing. Essentially normal rotational chair testing, however, significantly reduced VOR at some - Ocular and cervical vestibular evoked myogenic potentials (VEMP) results are not consistent with superior semi-circular canal dehiscence (SSCD), otolith, vestibular nerve, and VEMP pathway involvement in both ears. - There were no clinically significant signs of pathophysiologic nystagmus provoked during gaze stability testing with fixation removed. - While there were no subjective or objective indications of Benign Paroxysmal Positional Vertigo, observed subclinical positional nystagmus. Positional nystagmus in isolation is of minor diagnostic utility. This finding has been observed in normal individuals across numerous studies (Agusto, 2020). - There were no indications of central vestibulo-ocular pathway involvement noted. Essentially normal oculomotor examination. - Normal observation of gait and transfers. RECOMMENDATIONS: - Continue medical follow up with Merlene Mchugh PA-C - Continue follow up with your neurologist regarding the above symptoms. - Consider referral to vestibular and balance rehabilitation therapy to improve balance confidence and reduce reported symptoms. - Pereira-Daroff exercises were provided with instructions to complete twice daily over the next 10 days to assist with subjective complaints noted during position changes. - Consider re-evaluation as medically indicated. - Consider maintaining a healthy sleep schedule in addition to diet, hydration, and exercise. The results and recommendations were explained to Marielle Burroughs and she expressed understanding of the information. History Present Illness The following history was obtained by way of Lyndon Burroughs's previous medical record, patient entered questionnaire, and direct patient interview: Marielle presents with dizziness described as room spinning, lightheadedness, feeling faint. She reported a history of vertigo, however, the last episode was around 1 year ago, described as room spinning dizziness when getting out of bed. This lasted hours in duration. Her typical symptoms do not last as long, but can occur spontaneously. She noted that standing up she will always gets a lightheadedness or feeling faint. She tested negative for POTS. Symptoms are provoked by driving for a long period of time, head movements, standing up quickly. Associated symptoms include nausea, pressure in both ears (world goes quiet for a second), seeing spots head thumping in the head and vision changes. Of note, Lyndon has a history of headaches, however they are not associated with dizziness nor occur at similar times/have similar triggers. Lyndon has not fallen two or more times in the past year or fallen once with with injury and denies a fear of falling. Lyndon is not currently using an ambulatory device. Please refer to summary of past medical history section for further details of presenting symptoms, signs and relevant past medical history. Symptom Ratin-2/10 today (0 = no symptoms, 10 = severe symptoms). SUMMARY OF PAST MEDICAL HISTORY: - She has a past medical history of ASCUS with positive high risk HPV cervical (05/2017), Chlamydia (1997), Mood d (more content not included)... [facility] 06-16-2024 Instructions Mario Osborne PA-C - 06/16/2024 4:18 PM EDT Use a 1/4 heel lift in all of the LEFT shoes documented in this encounter [facility] 06-16-2024 Note HNO ID: [id number] Author: MARIO OSBORNE PA-C Service: ? Author Type: Physician Recreational Therapy Aide Type: Progress Notes Filed: 06/16/2024 16:36 Note Text: [facility] [address] [place] [address] 06/16/2024 ASSESSMENT AND PLAN: Assessment : Encounter Diagnosis ICD-10-CM 1. Chronic midline thoracic back pain M54.6 XR THORACIC GENERAL 3V AP/LAT/SWIMMERS G89.29 CONSULT TO PHYSICAL THERAPY 2. 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 Burroughs is a pleasant 43-year-old female that returns to the office here today a week after her last visit for the low back. Now she is being seen today for thoracic symptoms in the mid and upper thoracic region that radiate upward to the neck and sometimes cause headaches. Unfortunately, she has longstanding fibromyalgia and has struggled over the years to keep symptoms under good control. She is doing quite a bit of walking and trying to lose some weight. She says she does about 7000 steps in a day and is trying to continue to ramp that upward as time goes on. She denies numbness, tingling, weakness in upper extremities. Her muscle relaxant has not seem to give her much help in the past for this. She takes daily Flexeril 10 mg. EXAM Highlights: Exam is essentially normal from a neurologic standpoint as noted below. She has full range of motion without deficit but does have pain mostly at the base of the neck with full motion in any direction There is pain on palpation over the musculature in the cervical thoracic junction IMAGING: We did review her prior cervical plain radiographs together. She does not appear to have any abnormal alignment or fracture or listhesis. Disc space heights all seem to be pretty open at every level on her March 2023 cervical flexion and extension views. SUMMARY/PLAN: I will go ahead and try to get some x-rays of the main area of her pain in the upper thoracic region and cervical region with AP, lateral, swimmers view of thoracic. She would just like to see how much degenerative spondylosis that she has She is planning a trip in the very near future to [place] and wants to do quite a bit of walking there. I would agree that this is a good idea for her to walk is much as she is able. She is to return here after PT and x-rays if symptoms do not calm down at all. Plan : DIAGNOSTIC TESTING: -X-ray views will be obtained to better evaluate bony structures. REFERAL FOR SERVICES: -Physical therapy will be instituted. ACTIVITY RECOMMENDATIONS: -The patient is encouraged to avoid bed rest and maintain normal activity. -The patient is encouraged to exercise regularly as tolerated. NUTRITION RECOMMENDATIONS: -The patient is carrying a significant amount of weight above an ideal BMI. We discussed how this impacts overall health and back pain. FOLLOW-UP: -The patient is instructed to return as needed. ADDITIONAL DISCUSSION: -We discussed the difference between hurt vs harm as it relates to chronic pain. This document has been created with the use of voice recognition technology. It may contain inaccuracies: (e.g. misspellings, inaccurate syntax or word sense) that have escaped review. Time spent: 40 minutes today with this patient visit. This includes [id number] time, review of chart records regarding conservative care history, spine-pertinent imaging, and communication/care coordination with referring provider, problem-specific history-taking and counseling/education regarding treatment options. cc: Mario Osborne 0 [facility] [id number] Results of consultation to be transmitted via electronic medical record for those providers who practice within [facility] or with access to [employer] via [facility], or via letter. ____ ################################## ################################## #### CHIEF COMPLAINT: Patient is here for the neck pain, right shoulder, upper back, pain from the neck goes up to the base of the skull, and also to the eyes (mostly right side). Has this pain for years and it is getting worse, more frequent. Level of the pain is at 5/10. Pain wakes her up. 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 Spinal Injections: She has not gotten prior spinal injections. Other: None Current Outpatient M (more content not included)... [facility] 06-16-2024 History of Present illness Narrative Images from the original note were not included. Mario Osborne PA-C [facility] [address] [facility] [address] [place] [id number] 06/16/2024 ASSESSMENT AND PLAN: Assessment : Encounter Diagnosis ICD-10-CM 1. Chronic midline thoracic back pain M54.6 XR THORACIC GENERAL 3V AP/LAT/SWIMMERS G89.29 CONSULT TO PHYSICAL THERAPY 2. 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 uBrroughs is a pleasant 43-year-old female that returns to the office here today a week after her last visit for the low back. Now she is being seen today for thoracic symptoms in the mid and upper thoracic region that radiate upward to the neck and sometimes cause headaches. Unfortunately, she has longstanding fibromyalgia and has struggled over the years to keep symptoms under good control. She is doing quite a bit of walking and trying to lose some weight. She says she does about 7000 steps in a day and is trying to continue to ramp that upward as time goes on. She denies numbness, tingling, weakness in upper extremities. Her muscle relaxant has not seem to give her much help in the past for this. She takes daily Flexeril 10 mg. EXAM Highlights: Exam is essentially normal from a neurologic standpoint as noted below. She has full range of motion without deficit but does have pain mostly at the base of the neck with full motion in any direction There is pain on palpation over the musculature in the cervical thoracic junction IMAGING: We did review her prior cervical plain radiographs together. She does not appear to have any abnormal alignment or fracture or listhesis. Disc space heights all seem to be pretty open at every level on her March 2023 cervical flexion and extension views. SUMMARY/PLAN: I will go ahead and try to get some x-rays of the main area of her pain in the upper thoracic region and cervical region with AP, lateral, swimmers view of thoracic. She would just like to see how much degenerative spondylosis that she has She is planning a trip in the very near future to [place] and wants to do quite a bit of walking there. I would agree that this is a good idea for her to walk is much as she is able. She is to return here after PT and x-rays if symptoms do not calm down at all. Plan : DIAGNOSTIC TESTING: -X-ray views will be obtained to better evaluate bony structures. REFERAL FOR SERVICES: -Physical therapy will be instituted. ACTIVITY RECOMMENDATIONS: -The patient is encouraged to avoid bed rest and maintain normal activity. -The patient is encouraged to exercise regularly as tolerated. NUTRITION RECOMMENDATIONS: -The patient is carrying a significant amount of weight above an ideal BMI. We discussed how this impacts overall health and back pain. FOLLOW-UP: -The patient is instructed to return as needed. ADDITIONAL DISCUSSION: -We discussed the difference between hurt vs harm as it relates to chronic pain. This document has been created with the use of voice recognition technology. It may contain inaccuracies: (e.g. misspellings, inaccurate syntax or word sense) that have escaped review. Time spent: 40 minutes today with this patient visit. This includes [id number] time, review of chart records regarding conservative care history, spine-pertinent imaging, and communication/care coordination with referring provider, problem-specific history-taking and counseling/education regarding treatment options. cc: Mario Osborne [address] [place] [id number] Results of consultation to be transmitted via electronic medical record for those providers who practice within [facility] or with access to [employer] via [facility], or via letter. ____ ################################## ################################## #### CHIEF COMPLAINT: Patient is here for the neck pain, right shoulder, upper back, pain from the neck goes up to the base of the skull, and also to the eyes (mostly right side). Has this pain for years and it is getting worse, more frequent. Level of the pain is at 5/10. Pain wakes her up. 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 Spinal Injections: She has not gotten prior spinal injections. Other: None Current Outpatient Medications Medication Sig Dispense Refill DULoxetine (CYMBALTA) 60 mg capsule Take 60 mg by mouth two times a day. haloperidol (HALDOL) 2 mg tablet Take 2 mg by mouth as needed. buPROPion SR (WELLBUTRIN SR) 100 mg 12 hr tablet Take 100 mg by mouth once daily. Norethindrone, Contraceptive, (ORTHO MICRONOR) 0.35 mg tablet Take 1 tablet by mouth once daily. 84 tablet 0 cyclobenzaprine (FLEXERIL) 10 mg tablet Take 1 tablet by mouth at bedtime as needed for muscle spasm or pain. 30 tablet 1 ATIVAN 0.5 mg at bedtime as needed. Lorazepam amphetamine-dextroamphetamine (ADDERALL) 15 mg tablet Take 7 mg by mouth as needed. MULTIVITAMIN ORAL Take by mouth once daily. metroNIDAZOLE (FLAGYL) 500 mg tablet Take 1 tablet by mouth two times a day for 7 days. (Patient not taking: Reported on 06/09/2024) 14 tablet 0 buPROPion (WELLBUTRIN) 75 mg tablet Take 100 mg by mouth once daily. (Patient not taking: Reported on 06/16/2024) No current facility-administered medications for this visit. Allergies: Latex and Tomatoes PAST MEDICAL HISTORY Diagnosis Date ASCUS with positive high risk HPV cervical 05/2017 Chlamydia 1998 [facility] Myopia, bilateral 12/23/2017 Obsessive-compulsive disorders Other specified anemias PMH - PAST MEDICAL HISTORY OF HIATAL HERNIA Psychosis (HCC) Dr. Rocha at counseling center PAST SURGICAL HISTORY Procedure Laterality Date COLPOSCOPY CERVIX VAG LOOP ELTRD BX CERVIX ENDOSCOPY PROC Social History Tobacco Use Smoking status: Never Smokeless tobacco: Never Vaping Use Vaping status: Never Used Substance Use Topics Alcohol use: No Drug use: No FAMILY HISTORY Problem Relation Age of Onset Psychiatry Mother DEPRESSION,SUICIDAL IDEATION Cancer Mother cancer in the appendix Leukemia Mother Colon Cancer Mother 70 Appendix cancer Hypertension Father Heart Father [place] Psychiatry Father DEPRESSION, bipolar COPD Father smoked from age 12 other (CHF) Father Diabetes Sister Depression Sister other (HTN) Sister Depression Brother other (htn) Brother Diabetes Brother Bipolar disorder Brother Psychiatry Brother Schizoaffective Alcohol/Drug Maternal Grandmother ALCOHOLIC Alzheimer's Disease Maternal Grandmother Arthritis Maternal Grandmother Colon Cancer Maternal Grandmother Psychiatry Maternal Grandmother Alcohol/Drug Maternal Grandfather ALCOHOLIC Stroke Maternal Grandfather Alcohol/Drug Paternal Grandmother ALCOHOLIC Heart Paternal Grandmother CHF Alcohol/Drug Paternal Grandfather ALCOHOLIC Heart Paternal Grandfather [place] Stroke Paternal Grandfather Alzheimer's Disease Paternal Grandfather Diabetes Maternal Uncle Colon Cancer Maternal Uncle 70 Cancer Maternal Uncle pancreatic cancer Breast Cancer Paternal Aunt 50 - 60 Diabetes Paternal Aunt PAUNT X 5 Diabetes Paternal Uncle Autism Other Anxiety disorder Other Tourette syndrome Other Ovarian cancer Other 28 [place]ig Hyperthermia No Family History REVIEW OF SYSTEMS: Constitutional: (-) Fever/Chills (-) Night Sweats (-) Weight Gain (-) Weight Loss Gastrointestinal: (-) Abdominal Pain (-) Diarrhea (+) Constipation (-) Heart Burn Cardiovascular: (-) Chest Pain (+) Palpitations (+) Lightheadedness (-) Hx Heart Surgery/Stent Respiratory: (-) Short of Breath (-) Cough (-) Snoring Neurologic: (+) Headache (-) Blurry Vision (-) Fainting Skin: (-) Rashes (-) Itching (-) Other Lesions Psychiatric: (+) Depression (+) Anxiety (-) Suicidal Thoughts Genitourinary: (+) Frequency (-) Urgency Endocrine: (-) Thyroid Disorder (-) Diabetes Hematologic: (-) Prolonged Bleeding (+) Easy Bruising ################################## ################################## ################################## ########################### PHYSICAL EXAM: Blood pressure 126/84, pulse 77, height 167.6 cm (5' 6), weight 127 kg (279 lb 15.8 oz), last menstrual period 05/06/2024, SpO2 99%. Body mass index is 45.19 kg/m . General: Patient is a(n) good and but overinclusive historian. The patient appears approximately the recorded age and is sitting comfortably in the examining room. The patient is average height in stature and is morbidly obese in appearance. This individual has no difficulty arising from a sitting position and does not have difficulty acquiring a full, upright position when standing. Station and Gait: Normal stance, normal gait.. MENTAL STATUS EXAMINATION: The patient was well groomed and casually attired. The patient had good eye contact and rapport was average to establish. The patient appeared to be alert and oriented in all spheres. The patient's overall medical judgment appeared to be good.The patient's motivation for treatment was judged based on today's encounter to be good. SPINE: Cervical Lordosis: Increased Thoracic Kyphosis: Increased Skin: Normal-no rashes, bruises, lesions, or signs of localized trauma., Skin color, texture and turgor normal. Paraspinal atrophy: No Range of Motion: Flexion: 0 fingerbreadths from chin to chest Pain: Yes Extension: painful at end range of motion Rotation: Right: painful at end range of motion Left: painful at end range of motion PALPATION TENDERNESS: Severe tenderness at: cervical spine and shoulders/trapezius Hyperesthesia present: No Regional symptoms present: No Increased pain with axial loading: No Distraction: Normal Pain responses: appropriate NEUROLOGIC EXAM: Requires verbal cues to minimize cog-wheel or give-way resistance: No MOTOR: Deltoid R: 5/5 L: 5/5 Biceps R: 5/5 L: 5/5 Wrist Extension R: 5/5 L: 5/5 Wrist Flexion R: 5/5 L: 5/5 Triceps R: 5/5 L: 5/5 Substation Manager R: 5/5 L: 5/5 Interossei R: 5/5 L: 5/5 SENSATION to Light Touch: Cervical: C2-T2 symmetrically normal. Thoracic: T1-L1 symmetrically normal. Spurling's: Negative bilaterally. REFLEXES: Upper Extremity: All Upper Extremity reflexes symmetrically normal. Lower Extremity: All Lower Extremity reflexes symmetrically normal. Trammell's: Negative bilaterally. Clonus: R: 0 beats/Normal L: 0 beats/Normal Babinski Sign Present: Negative bilaterally. IMAGING STUDIES: See discussion above documented in this encounter [facility] 06-09-2024 Note HNO ID: [id number] Author: MARIO OSBORNE PA-C Service: ? Author Type: Physician Recreational Therapy Aide Type: Progress Notes Filed: 06/09/2024 11:20 Note Text: Mario [facility]borne [facility] [address] [address] 06/09/2024 ASSESSMENT AND PLAN: Assessment : Encounter Diagnosis ICD-10-CM 1. Primary osteoarthritis of both knees M17.0 [facility]ULT [facility] CONSULT TO PHYSICAL THERAPY 2. Lumbosacral spondylosis without myelopathy M47.817 CON[facility]ULT [facility]ATR[facility] CONSULT TO PHYSICAL THERAPY 3. Hyperlordosis deformity of lumbar spine M40.56 4. Morbid obesity due to excess calories (HCC) E66.01 Discussion: Ms. Burroughs is a 43-year-old female here for evaluation of her low back today. She has separate issues in the mid back and neck as well. She is pursuing disability and indicates that she would like to be able to work part-time again. She has described years of central low back pain that now radiates to the LEFT lateral hip on occasion. Main symptoms are in the lumbar region. She describes separate issues with middle and cervical spine and she will make a separate appointment for that in the future. She describes 2 or 3 family members that have EDS and she wonders if she may have the same EXAM Highlights: Normal mobilization, stance. Gait slightly waddles from cyfb-wh-hqam and balance is normal. There is central low back pain on palpation but she has full motion without any severe pain reproduction. She appears to have normal reflexes, strength, sensation in lower extremities. Seated SLR's are negative bilaterally. IMAGING: We reviewed her x-rays in detail during today's visit. She does have primarily L5-S1 DDD and mild hyperlordosis that may contribute to posterior facet arthrosis L4 through S1. I do not see listhesis or fracture or instability. Hip joints appear essentially normal. We also reviewed her shoulder x-rays briefly because they showed some of the upper thoracic region and there does not appear to be severe abnormalities from a thoracic spine standpoint on those films. SUMMARY/PLAN: She will start with supervised PT and nonsurgical bariatric referral. We talked about how the body has all worked together to create some symptoms and problems. She also has bilateral knee OA and morbid obesity that likely leads to gait abnormalities using her back as accessory musculature to help her gait and this causes additional back strain and wear and tear. She will plan to follow-up at another visit to discuss cervical issues further. Plan : REFERAL FOR SERVICES: -Physical therapy will be instituted. -Referral to nonsurgical bariatric ACTIVITY RECOMMENDATIONS: -The patient is encouraged to avoid bed rest and maintain normal activity. -The patient is encouraged to exercise regularly as tolerated. NUTRITION RECOMMENDATIONS: -The patient is carrying a significant amount of weight above an ideal BMI. We discussed how this impacts overall health and back pain. FOLLOW-UP: -The patient is instructed to return as needed. This document has been created with the use of voice recognition technology. It may contain inaccuracies: (e.g. misspellings, inaccurate syntax or word sense) that have escaped review. Time spent: 50 minutes today with this patient visit. This includes [id number] time, review of chart records regarding conservative care history, spine-pertinent imaging, and communication/care coordination with referring provider, problem-specific history-taking and counseling/education regarding treatment options. cc: Desirae Zamudio [address] [facility] [id number] Fax: Results of consultation to be transmitted via electronic medical record for those providers who practice within [facility] or with access to [employer] via [facility], or via letter. ____ ################################## ################################## #### CHIEF COMPLAINT: Patient is here for the lower back pain, hips (left is worse), pain right above the knees. Has this pain for years and over the years pain is getting worse. Level of the pain is at 5/10. Has shooting pain in the upper legs. Walking and standing makes it more painful. When she bend down to pick something up, and stand up with that weight, her legs will go numb and weakness. 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 [facility] 06-09-2024 History of Present illness Narrative Images from the original note were not included. Mario Osborne PA-C [facility] [address] [address] 06/09/2024 ASSESSMENT AND PLAN: Assessment : Encounter Diagnosis ICD-10-CM 1. Primary osteoarthritis of both knees M17.0 [facility]ULT [facility] CONSULT TO PHYSICAL THERAPY 2. Lumbosacral spondylosis without myelopathy M47.817 CONSULT BAR[facility]ATRIC[facility]IC [facility] CONSULT TO PHYSICAL THERAPY 3. Hyperlordosis deformity of lumbar spine M40.56 4. Morbid obesity due to excess calories (HCC) E66.01 Discussion: Ms. Burroughs is a 43-year-old female here for evaluation of her low back today. She has separate issues in the mid back and neck as well. She is pursuing disability and indicates that she would like to be able to work part-time again. She has described years of central low back pain that now radiates to the LEFT lateral hip on occasion. Main symptoms are in the lumbar region. She describes separate issues with middle and cervical spine and she will make a separate appointment for that in the future. She describes 2 or 3 family members that have EDS and she wonders if she may have the same EXAM Highlights: Normal mobilization, stance. Gait slightly waddles from hxau-en-wdkg and balance is normal. There is central low back pain on palpation but she has full motion without any severe pain reproduction. She appears to have normal reflexes, strength, sensation in lower extremities. Seated SLR's are negative bilaterally. IMAGING: We reviewed her x-rays in detail during today's visit. She does have primarily L5-S1 DDD and mild hyperlordosis that may contribute to posterior facet arthrosis L4 through S1. I do not see listhesis or fracture or instability. Hip joints appear essentially normal. We also reviewed her shoulder x-rays briefly because they showed some of the upper thoracic region and there does not appear to be severe abnormalities from a thoracic spine standpoint on those films. SUMMARY/PLAN: She will start with supervised PT and nonsurgical bariatric referral. We talked about how the body has all worked together to create some symptoms and problems. She also has bilateral knee OA and morbid obesity that likely leads to gait abnormalities using her back as accessory musculature to help her gait and this causes additional back strain and wear and tear. She will plan to follow-up at another visit to discuss cervical issues further. Plan : REFERAL FOR SERVICES: -Physical therapy will be instituted. -Referral to nonsurgical bariatric ACTIVITY RECOMMENDATIONS: -The patient is encouraged to avoid bed rest and maintain normal activity. -The patient is encouraged to exercise regularly as tolerated. NUTRITION RECOMMENDATIONS: -The patient is carrying a significant amount of weight above an ideal BMI. We discussed how this impacts overall health and back pain. FOLLOW-UP: -The patient is instructed to return as needed. This document has been created with the use of voice recognition technology. It may contain inaccuracies: (e.g. misspellings, inaccurate syntax or word sense) that have escaped review. Time spent: 50 minutes today with this patient visit. This includes erpv-rq-lyln time, review of chart records regarding conservative care history, spine-pertinent imaging, and communication/care coordination with referring provider, problem-specific history-taking and counseling/education regarding treatment options. cc: Desirae Zamudio [address] [facility] [id number] Fax: Results of consultation to be transmitted via electronic medical record for those providers who practice within [facility] or with access to [employer] via [facility], or via letter. ____ ################################## ################################## #### CHIEF COMPLAINT: Patient is here for the lower back pain, hips (left is worse), pain right above the knees. Has this pain for years and over the years pain is getting worse. Level of the pain is at 5/10. Has shooting pain in the upper legs. Walking and standing makes it more painful. When she bend down to pick something up, and stand up with that weight, her legs will go numb and weakness. 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 Spinal Injections: She has not gotten prior spinal injections. Other: None Current Outpatient Medications Medication Sig Dispense Refill buPROPion SR (WELLBUTRIN SR) 100 mg 12 hr tablet Take 100 mg by mouth once daily. DULoxetine (CYMBALTA) 40 mg cpDR Take 40 mg by mouth two times a day. Norethindrone, Contraceptive, (ORTHO MICRONOR) 0.35 mg tablet Take 1 tablet by mouth once daily. 84 tablet 0 cyclobenzaprine (FLEXERIL) 10 mg tablet Take 1 tablet by mouth at bedtime as needed for muscle spasm or pain. 30 tablet 1 DULoxetine (CYMBALTA) 30 mg capsule Take 60 mg by mouth once daily. ATIVAN 0.5 mg as needed. buPROPion (WELLBUTRIN) 75 mg tablet Take 100 mg by mouth once daily. amphetamine-dextroamphetamine (ADDERALL) 15 mg tablet Take 7 mg by mouth as needed. MULTIVITAMIN ORAL Take by mouth once daily. metroNIDAZOLE (FLAGYL) 500 mg tablet Take 1 tablet by mouth two times a day for 7 days. (Patient not taking: Reported on 06/09/2024) 14 tablet 0 No current facility-administered medications for this visit. Allergies: Latex and Tomatoes PAST MEDICAL HISTORY Diagnosis Date ASCUS with positive high risk HPV cervical 05/2017 [facility]lamydia [facility] Myopia, bilateral 12/23/2017 Obsessive-compulsive disorders Other specified anemias PMH - PAST MEDICAL HISTORY OF HIATAL HERNIA Psychosis (HCC) Dr. Rocha at counseling center PAST SURGICAL HISTORY Procedure Laterality Date COLPOSCOPY CERVIX VAG LOOP ELTRD BX CERVIX ENDOSCOPY PROC Social History Tobacco Use Smoking status: Never Smokeless tobacco: Never Vaping Use Vaping status: Never Used Substance Use Topics Alcohol use: No Drug use: No FAMILY HISTORY Problem Relation Age of Onset Psychiatry Mother DEPRESSION,SUICIDAL IDEATION Cancer Mother cancer in the appendix Leukemia Mother Colon Cancer Mother 70 Appendix cancer Hypertension Father Heart Father [place] Psychiatry Father DEPRESSION, bipolar COPD Father smoked from age 12 other (CHF) Father Diabetes Sister Depression Sister other (HTN) Sister Depression Brother other (htn) Brother Diabetes Brother Bipolar disorder Brother Psychiatry Brother Schizoaffective Alcohol/Drug Maternal Grandmother ALCOHOLIC Alzheimer's Disease Maternal Grandmother Arthritis Maternal Grandmother Colon Cancer Maternal Grandmother Psychiatry Maternal Grandmother Alcohol/Drug Maternal Grandfather ALCOHOLIC Stroke Maternal Grandfather Alcohol/Drug Paternal Grandmother ALCOHOLIC Heart Paternal Grandmother CHF Alcohol/Drug Paternal Grandfather ALCOHOLIC Heart Paternal Grandfather [place] Stroke Paternal Grandfather Alzheimer's Disease Paternal Grandfather Diabetes Maternal Uncle Colon Cancer Maternal Uncle 70 Cancer Maternal Uncle pancreatic cancer Breast Cancer Paternal Aunt 50 - 60 Diabetes Paternal Aunt PAUNT X 5 Diabetes Paternal Uncle Autism Other Anxiety disorder Other Tourette syndrome Other Ovarian cancer Other 28 Malig Hyperthermia No Family History REVIEW OF SYSTEMS: Constitutional: (-) Fever/Chills (-) Night Sweats (-) Weight Gain (-) Weight Loss Gastrointestinal: (-) Abdominal Pain (-) Diarrhea (+) Constipation (-) Heart Burn Cardiovascular: (-) Chest Pain (+) Palpitations (+) Lightheadedness (-) Hx Heart Surgery/Stent Respiratory: (+) Short of Breath (-) Cough (-) Snoring Neurologic: (+) Headache (+) Blurry Vision (-) Fainting Skin: (-) Rashes (-) Itching (-) Other Lesions Psychiatric: (+) Depression (+) Anxiety (-) Suicidal Thoughts Genitourinary: (+) Frequency (-) Urgency Endocrine: (-) Thyroid Disorder (-) Diabetes Hematologic: (-) Prolonged Bleeding (+) Easy Bruising ################################## ################################## ################################## ########################### PHYSICAL EXAM: Blood pressure 121/83, pulse 83, height 167.6 cm (5' 6), weight 127.6 kg (281 lb 4.9 oz), last menstrual period 05/06/2024, SpO2 96%. Body mass index is 45.4 kg/m . General: Patient is a(n) average historian. The patient appears approximately the recorded age and is sitting comfortably in the examining room. The patient is tall in stature and is morbidly obese in appearance. This individual has no difficulty arising from a sitting position and does not have difficulty acquiring a full, upright position when standing. Station and Gait: wide-based The patient is able to but has difficulty in attempting to walk in a tandem gait. MENTAL STATUS EXAMINATION: The patient was well groomed and casually attired. The patient had good eye contact and rapport was average to establish. The patient appeared to be alert and oriented in all spheres. The patient's overall medical judgment appeared to be good.The patient's motivation for treatment was judged based on today's encounter to be good. SPINE: Lumbar Lordosis: Increased Thoracic Kyphosis: Normal RANGE OF MOTION: Flexion: normal, as expected for age and weight Pain: No Extension: normal, as expected for age and weight Pain: No Lateral Bending: Right normal, as expected for age and weight Pain: No Left normal, as expected for age and weight Pain: No PALPATION TENDERNESS: Moderate tenderness at: lumbar region and posterior pelvis Hyperesthesia present: No Regional symptoms present: No Increased pain with axial loading: No Distraction: Normal Pain responses: appropriate NEUROLOGIC EXAM: MOTOR: Walk on Toes: Right: Yes Left: Yes Walk on Heels: Right: Yes Left: Yes Requires verbal cues to minimize cog-wheel or give-way resistance: No Hip Flexor R: 5/5 L: 5/5 Hip Abductor R: 5/5 L: 5/5 Hip Adductor R: 5/5 L: 5/5 Knee Extension R: 5/5 L: 5/5 Foot Dorsiflexion R: 5/5 L: 5/5 Foot Plantar Flexion R: 5/5 L: 5/5 Ext Hallicus Longus R: 5/5 L: 5/5 Toe Extensors R: 5/5 L: 5/5 SENSATION to Light Touch: Lumbar: L2-S1 symmetrically normal. REFLEXES: Lower Extremity: All Lower Extremity reflexes symmetrically normal. Clonus: R: 0 beats/Normal L: 0 beats/Normal Babinski Sign: Negative bilaterally. VASCULAR: Skin appearance: Right: Warm/pink Left: Warm/pink Capillary refill: Right: brisk Left: brisk ADDITIONAL MUSCULOSKELETAL EXAM: HIP/PELVIS EXAM: Tenderness over the PSIS: Right: No Left: Yes Greater Trochanteric pain: Right: Yes Left: Yes Motion restriction: Right: No Left: No Pain: Right: No Left: No SPECIAL TESTS: Straight Leg Raise: negative bilaterally Contralateral Straight Leg Raise: negative bilaterally IMAGING STUDIES: See discussion above documented in this encounter [facility] 05-20-2024 Note HNO ID: [id number] Author: ROSIE RATLIFF PA-C Service: ? Author Type: Physician Recreational Therapy Aide Type: Progress Notes Filed: 05/20/2024 11:35 Note Text: FOLLOW UP APPOINTMENT Chief Complaint:/Reason for Visit: Established patient; Scheduled follow up appointment for new or existing problem and/or post-surgical evaluation History of Present Illness: Lyndon Burroughs follows up today for her right shoulder. Here for repeat injection. Continues to get moderate relief. ROS: Constitutional: patient denies any recent fever or significant change in weight Cardiovascular: patient denies any chest pain at rest Respiratory: patient denies any shortness of breath or cough Gastrointestinal: patient denies any current abdominal discomfort Integumentary: patient denies any recent skin changes Musculoskeletal: as noted in the HPI Neurologic: as noted in the HPI Endocrine: patient denies a current diagnosis of diabetes Hematologic/Lymphatic: patient denies any easily bleeding, any recent infection and denies any recent observable lymph node enlargement Psychologic: negative for any recent depression or anxiety issues PAST MEDICAL HISTORY Diagnosis Date ASCUS with positive high risk HPV cervical 05/2017 Chlamydia 1998 [facility] Myopia, bilateral 12/23/2017 Obsessive-compulsive disorders Other specified anemias PMH - PAST MEDICAL HISTORY OF HIATAL HERNIA Psychosis (HCC) Dr. Rocha at [facility] Current Outpatient Medications: metroNIDAZOLE (FLAGYL) 500 mg tablet Norethindrone, Contraceptive, (ORTHO MICRONOR) 0.35 mg tablet cyclobenzaprine (FLEXERIL) 10 mg tablet DULoxetine (CYMBALTA) 30 mg capsule ATIVAN 0.5 mg buPROPion (WELLBUTRIN) 75 mg tablet amphetamine-dextroamphetamine (ADDERALL) 15 mg tablet MULTIVITAMIN ORAL Problem List: reviewed and updated. Physical Exam: Constitutional: No acute distress, pleasant Resp: Non-labored breathing Vascular: No cyanosis Skin: No rashes noted Focused Musculoskeletal exam: General: Ambulates well; no other joint abnormalities noted. 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 Pulses: 2+ radial, ulnar; hands warm bilat, <2sec CR Compartments: soft and compressible Assessment: (M25.811) Impingement of right shoulder (primary encounter diagnosis) Plan/Medical Decision Making:The nature of the problem and all indicated treatment options available were discussed in detail with the patient. Test(s)/Imaging/Referral(s): None 2. Intervention: Continue conservative treatment and CSI 3. Follow-up: as needed All of Lyndon Burroughs questions were answered today. She expressed a clear understanding of our discussion and is in agreement with the outlined treatment plan Rosie Ratliff PA-C Large Joint Arthro/Inj: R subacromial bursa 05/20/2024 11:35 AM The procedure site was prepped in the usual sterile fashion. Site: R subacromial bursa Medications: 40 mg triamcinolone acetonide 40 mg/mL Anesthetics: 4 mL lidocaine (PF) 10 mg/mL (1 %) Outcome: Tolerated well, no immediate complications Post-injection instructions were reviewed with the patient and the patient voiced understanding of these instructions. Informed Consent Consent Obtained: Verbal Waterfall Protocol A moment to CARE was completed. SIGN IN Sign in communication not applicable due to emergent procedure. Personnel directly involved with the procedure wore the appropriate PPE. Special Equipment: N/A Patient/Surrogate Stated/Verified: Patient name, Date of , Relevant allergies and Intended procedure TIME OUT Relevant labs, photos, and/or imaging studies have been reviewed. Consent documented and matches the intended procedure. Correct side/site marked and visible. Medications required for procedure verified. No fire risk assessment and interventions applicable. No implant(s) inserted. SIGN OUT All instruments, equipment, possible retained foreign bodies accounted for. [facility] 05-20-2024 History of Present illness Narrative Associated Order(s): Large Joint Arthro/Inj: R subacromial bursa Post-Procedure Diagnose(s): Impingement of right shoulder FOLLOW UP APPOINTMENT Chief Complaint:/Reason for Visit: Established patient; Scheduled follow up appointment for new or existing problem and/or post-surgical evaluation History of Present Illness: Lyndon Burroughs follows up today for her right shoulder. Here for repeat injection. Continues to get moderate relief. ROS: Constitutional: patient denies any recent fever or significant change in weight Cardiovascular: patient denies any chest pain at rest Respiratory: patient denies any shortness of breath or cough Gastrointestinal: patient denies any current abdominal discomfort Integumentary: patient denies any recent skin changes Musculoskeletal: as noted in the HPI Neurologic: as noted in the HPI Endocrine: patient denies a current diagnosis of diabetes Hematologic/Lymphatic: patient denies any easily bleeding, any recent infection and denies any recent observable lymph node enlargement Psychologic: negative for any recent depression or anxiety issues PAST MEDICAL HISTORY Diagnosis Date ASCUS with positive high risk HPV cervical 05/2017 Chlamydia [facility] Myopia, bilateral 12/23/2017 Obsessive-compulsive disorders Other specified anemias PMH - PAST MEDICAL HISTORY OF HIATAL HERNIA Psychosis (HCC) Dr. Rocha at [facility] Current Outpatient Medications: metroNIDAZOLE (FLAGYL) 500 mg tablet Norethindrone, Contraceptive, (ORTHO MICRONOR) 0.35 mg tablet cyclobenzaprine (FLEXERIL) 10 mg tablet DULoxetine (CYMBALTA) 30 mg capsule ATIVAN 0.5 mg buPROPion (WELLBUTRIN) 75 mg tablet amphetamine-dextroamphetamine (ADDERALL) 15 mg tablet MULTIVITAMIN ORAL Problem List: reviewed and updated. Physical Exam: Constitutional: No acute distress, pleasant Resp: Non-labored breathing Vascular: No cyanosis Skin: No rashes noted Focused Musculoskeletal exam: General: Ambulates well; no other joint abnormalities noted. 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 Pulses: 2+ radial, ulnar; hands warm bilat, <2sec CR Compartments: soft and compressible Assessment: (M25.811) Impingement of right shoulder (primary encounter diagnosis) Plan/Medical Decision Making:The nature of the problem and all indicated treatment options available were discussed in detail with the patient. Test(s)/Imaging/Referral(s): None 2. Intervention: Continue conservative treatment and CSI 3. Follow-up: as needed All of Lyndon Burroughs questions were answered today. She expressed a clear understanding of our discussion and is in agreement with the outlined treatment plan Rosie Ratliff PA-C Large Joint Arthro/Inj: R subacromial bursa 05/20/2024 11:35 AM The procedure site was prepped in the usual sterile fashion. Site: R subacromial bursa Medications: 40 mg triamcinolone acetonide 40 mg/mL Anesthetics: 4 mL lidocaine (PF) 10 mg/mL (1 %) Outcome: Tolerated well, no immediate complications Post-injection instructions were reviewed with the patient and the patient voiced understanding of these instructions. Informed Consent Consent Obtained: Verbal Waterfall Protocol A moment to CARE was completed. SIGN IN Sign in communication not applicable due to emergent procedure. Personnel directly involved with the procedure wore the appropriate PPE. Special Equipment: N/A Patient/Surrogate Stated/Verified: Patient name, Date of , Relevant allergies and Intended procedure TIME OUT Relevant labs, photos, and/or imaging studies have been reviewed. Consent documented and matches the intended procedure. Correct side/site marked and visible. Medications required for procedure verified. No fire risk assessment and interventions applicable. No implant(s) inserted. SIGN OUT All instruments, equipment, possible retained foreign bodies accounted for. documented in this encounter [facility] 05-19-2024 Note HNO ID: [id number] Author: YAHAIRA DANEILS APRN.CNM Service: ? Author Type: Clinical Specialist Medical Device Type: Progress Notes Filed: 05/19/2024 12:19 Note Text: Marielle is a 43 year old who presents for an annual gynecologic exam with complaints, vaginal itching and vulvar irritation. Recently stopped taking antipsychotic meds due to weight gain. Reports mood is stable at this time Still get period: Yes Bleeding amount bothersome: No Bleeding between periods: Yes Period symptoms: None Menopause symptoms: None Time with current partner: Partner 1 - 6 years, Partner 2 - 1 year Number of lifetime partners: 50 control frequency: Always HPV vaccine: No; HPV:negative Last pap smear: 2022- NORMAL History of abnormal pap: Yes, history of abnormal PAP smears Bothersome pelvic pain: No Last mammogram: last week OB History Gravida1 Para1 Term1 Preterm0 AB0 Living1 SAB0 IAB0 Ectopic0 Multiple0 Live Births1 Comment: 1 vaginal delivery Problem Relation Age of Onset Psychiatry Mother DEPRESSION,SUICIDAL IDEATION Cancer Mother cancer in the appendix Leukemia Mother Colon Cancer Mother 70 Appendix cancer Hypertension Father Heart Father [place] Psychiatry Father DEPRESSION, bipolar COPD Father smoked from age 12 other (CHF) Father Diabetes Sister Depression Sister other (HTN) Sister Depression Brother other (htn) Brother Diabetes Brother Bipolar disorder Brother Psychiatry Brother Schizoaffective Alcohol/Drug Maternal Grandmother ALCOHOLIC Alzheimer's Disease Maternal Grandmother Arthritis Maternal Grandmother Colon Cancer Maternal Grandmother Psychiatry Maternal Grandmother Alcohol/Drug Maternal Grandfather ALCOHOLIC Stroke Maternal Grandfather Alcohol/Drug Paternal Grandmother ALCOHOLIC Heart Paternal Grandmother CHF Alcohol/Drug Paternal Grandfather ALCOHOLIC Heart Paternal Grandfather [place] Stroke Paternal Grandfather Alzheimer's Disease Paternal Grandfather Diabetes Maternal Uncle Colon Cancer Maternal Uncle 70 Cancer Maternal Uncle pancreatic cancer Breast Cancer Paternal Aunt 50 - 60 Diabetes Paternal Aunt PAUNT X 5 Diabetes Paternal Uncle Autism Other Anxiety disorder Other Tourette syndrome Other Ovarian cancer Other 28 Malig Hyperthermia No Family History SOCIAL HISTORY Social History Tobacco Use Smoking status: Never Smokeless tobacco: Never Vaping Use Vaping status: Never Used Substance Use Topics Alcohol use: No Drug use: No REVIEW OF SYSTEMS Abdomen: No abdominal pain, nausea, vomiting, diarrhea, or constipation. Bladder: No dysuria, gross hematuria, urinary frequency, urinary urgency, or incontinence. Breast: No breast lumps, nipple d/c, overlying skin changes, redness or skin retraction. Allergies and current medication updated:Yes SENSITIVE EXAM: The sensitive examination was discussed with the Patient or Patient's Authorized Chemist Assistant. As applicable, any other physician, advance practice provider, medical student, or other health professional student that will be observing or involved in the sensitive examination for educational or training purposes was discussed with the Patient or Authorized Chemist Assistant. The Patient or Authorized Chemist Assistant has agreed to proceed with the sensitive examination. (Sensitive examination includes inspection and/or palpation of the breasts, pelvis, prostate and anorectal regions). EXAM: BP 128/76 Ht 5' 6 (1.68m) Wt 292 lb (132.5kg) LMP 05/06/2024 BMI 47.15 kg/(m2). GENERAL: pleasant, female in no apparent distress HEENT: Normocephalic and atraumatic NECK: Supple DERMATOLOGY: Normal and without lesions BREAST: deferred CHEST: Normal inspiratory effort ABDOMEN: soft, non-tender, and pannus large PELVIC: external genitalia normal, normal Bartholin's glands, urethra, Sobieski's glands, no vulvar lesions, no cervical lesions, good vaginal support, physiologic discharge present, normal appearing perineal body and perianal region BIMANUAL: uterus normal size, shape and consistency, no adnexal masses, non-tender, and no cervical motion tenderness RECTOVAGINAL: deferred. NEURO: alert and oriented x3,exam grossly non-focal EXTREMITIES: normal ASSESSMENT/PLAN: 1) Health maintenance: Pap/HPV up to date. Mammogram up to date . Colon cancer screening: up to date with screening Lipids/glucose: followed by PCP Vitamin D: followed by PCP 2) Contraception: Progestin - only contraceptives and vasectomy. Contraceptive options reviewed and information provided. 3) STD screening: Accepts full STD screeening including HIV, Syphilis, HEP B ANDC, HSV 1AND2 antibodies GC/CH- BV/Yeast collected and sent- (vaginitis) Patient reports currently having 2 sexual partners. Does not use condoms due to latex allergy and on (more content not included)... [facility] 05-17-2024 History of Present illness Narrative Radiology Service Progress Note PATIENT NAME: Lyndon Burroughs DATE OF SERVICE: May 17, 2024 TIME: 2:34 PM PATIENT IDENTITY VERIFICATION COMPLETED USING TWO (2) IDENTIFIERS: Name and Date of confirmed by patient verbally. FALL SCREENING: Has the patient had 2 falls in the last year or 1 fall with injury or currently using an Ambulatory Assistive Device (Walker, Cane, Wheelchair, Crutches, etc.)? No PATIENT GENDER DATA: Assigned female at . status: : No status: NO. PATIENT RELEVANT IMPLANT DATA REVIEWED: Not Applicable PATIENT PRESENTS WITH AN IMPLANTABLE OR ATTACHED POOLING OPERATOR: No RADIOLOGY DEPARTMENT: Ultrasound PERIPHERAL IV DATA: Not applicable SIGNED BY: Chata Rasheed RDMS May 17, 2024 2:34 PM documented in this encounter [facility] 05-17-2024 Note HNO ID: [id number] Author: CHATA RASHEED RDMS Service: ? Author Type: Inside Sales Supervisor Type: Progress Notes Filed: 05/17/2024 14:35 Note Text: Radiology Service Progress Note PATIENT NAME: Lyndon Burroughs DATE OF SERVICE: May 17, 2024 TIME: 2:34 PM PATIENT IDENTITY VERIFICATION COMPLETED USING TWO (2) IDENTIFIERS: Name and Date of confirmed by patient verbally. FALL SCREENING: Has the patient had 2 falls in the last year or 1 fall with injury or currently using an Ambulatory Assistive Device (Walker, Cane, Wheelchair, Crutches, etc.)? No PATIENT GENDER DATA: Assigned female at . status: : No status: NO. PATIENT RELEVANT IMPLANT DATA REVIEWED: Not Applicable PATIENT PRESENTS WITH AN IMPLANTABLE OR ATTACHED POOLING OPERATOR: No RADIOLOGY DEPARTMENT: Ultrasound PERIPHERAL IV DATA: Not applicable SIGNED BY: Chata Rasheed RDMS May 17, 2024 2:[address] [facility] 05-13-2024 Telephone encounter Note Orders singed. Yahaira Daniels APRN.CNM [facility] 05-13-2024 Miscellaneous Notes Orders singed. Yahaira Daniels APRN.CNM May we please have LTD right breast ultrasound orders placed for right callback. US Breast LTD Right We are not able to use the orders currently filed (US Breast complete Bilateral) Thank you very much! Chata Rasheed documented in this encounter [facility] 05-13-2024 Telephone encounter Note May we please have LTD right breast ultrasound orders placed for right callback. US Breast LTD Right We are not able to use the orders currently filed (US Breast complete Bilateral) Thank you very much! Chata Rasheed [facility] 05-12-2024 History of Present illness Narrative Program_ID:[id number] Access Code: [email or web address] URL: [email or web address] Date: 05-12-2024 Prepared By: Bennie Angel Program Notes Exercises - Supine Transversus Abdominis Bracing - Hands on Ground - 2 x daily - 7 x weekly - 2-3 sets - 10 reps - Hooklying Single Knee to Chest Stretch - 2 x daily - 7 x weekly - sets - 3 reps - Supine Lower Trunk Rotation - 2 x daily - 7 x weekly - 2 sets - 10-15 reps - Supine Fig-4 Stretch. - 2 x daily - 7 x weekly - sets - 3 reps - Active Straight Leg Raise with Quad Set - 2 x daily - 7 x weekly - 3 sets - 8-10 reps - Standing Hip Abduction - 2 x daily - 7 x weekly - 2 sets - 10 reps Program_ID:[id number] Access Code: [email or web address] URL: [email or web address] Date: 05-12-2024 Prepared By: Bennie Angel Program Notes Exercises - Sidelying Shoulder External Rotation - 2 x daily - 7 x weekly - 2 sets - 10 reps - Single Arm Scaption with Dumbbell - 2 x daily - 7 x weekly - 2 sets - 8-10 reps - Seated Scapular Retraction - 2 x daily - 7 x weekly - 2 sets - 10 reps Images from the original note were not included. Episode Visit Count: 1 Therapist That Will Accept/Oversee The Plan Of Care: Bennie Angel, PT. Start of Care Date: 05/12/24 Onset Date: (Low Back since 14 years old, B Knees 15 years ago, and R Shoulder Fall 2023.) Plan of Care Certification Date: 05/12/24 Next Certification Due Date: 06/24/24 Patient Identified by Name and Date of : Yes REHABILITATION AND SPORTS THERAPY PHYSICAL THERAPY EVALUATION PLAN OF CARE: Assessment: Lyndon Burroughs presents with chief complaint of Chronic Low Back & B Knee Pain as well as R Shoulder pain (started fall 2023) that interferes with stair negotiation, physical activities, walking, lifting, kneeling, sleeping, reaching behind back, reaching overhead, use hand with arm at shoulder level, weight bearing . The patient presents with impairments in ADL's, independence in exercise, overall function, patient reported outcome measures, posture, range of motion, strength, symptom management, and tissue tenderness. PROMIS (Patient-Reported Outcomes Measurement Information System) scores were reviewed and identified as a rehabilitation concern. Prognosis for therapy is Fair due to: Prognosis may be improved by, chronic nature of impairments, limited tolerance to activity current objective clinical presentation. The patient will benefit from skilled therapy services to meet the goals established for this plan of care as noted below. Classification Pain Mechanism Classification: Nociceptive Low Back Pain Classification: Movement Control Goals for Episode of Care: established 05/12/24 Patient reported outcome of pain Interference will decrease T -score by a minimum of 5 points. Patient reported outcome of physical function will increase T-score by a minimum 5 points. [place] in home exercise program. Perform reaching overhead, across body and behind back with decreased report of symptoms/pain in 6-8 weeks. Perform standing / walking / stairs with decreased report of symptoms/pain in 6-8 weeks. Patient will improve 5 time sit to stand to demonstrate improvement in functional lower extremity strength. Patient will increase strength of trunk to 4+/5 to allow for return to prior functional status and perform ADLs. Increase strength of B lower extremity & R upper extremity to 5/5 MMT for improved ADL/IADLs. Sleep through night without pain/symptoms. Patient Goals: Alleviate Pain. Time Frame for Goals and Treatment : 07/07/24 Planned Interventions, Frequency, and Duration: Current Frequency: 2x/week Duration: 4 weeks Total Number of Visits Planned: 8 Planned Treatment Interventions: Therapeutic exercise (36570), Neuromuscular re-education (13562), Manual therapy (65082), Therapeutic activities (25177), Self-senior care management (55792), Patient/Family/Caregiver Education PLAN FOR NEXT VISIT: Review, correct and progress HEP. Tib-Fem Distraction for knee relief. Can trial low back traction. Short step ups as tolerated. Patient demonstrates good understanding of plan of care and treatment. The above goals and plan of care were discussed and agreed upon by patient/family. SUBJECTIVE: States I am here for my entire body. States it is a good day for her pain despite having pain. R Shoulder pain came on in Fall 2023 insidiously. Worst with reaching across and overhead, trouble with turning in to look at her watch. Long history of low back & B knee pain for her. Saw Ortho for B Knees & DORA wanted her to see a resource management specialist. Back hurts constantly with standing and walking, has to take breaks frequently, good day can walk a 1/2 mile, bad day hard getting outside to her car. Stairs and decline walking are troublesome for knees. Low back is midline pain that radiates out. Knee pain is inferior and medial. R Shoulder pain is deep, can radiate down to mid-delt. Denies N/T down bilateral legs. Has done multiple injections for her knees and shoulders. Tylenol, & NSAIDs dull all her pain. Patient Goals: Alleviate Pain. Functional Limitations: stair negotiation, physical activities, walking, lifting, kneeling, sleeping, reaching behind back, reaching overhead, use hand with arm at shoulder level, weight bearing Prior Level of Function: Independent without limitations Relevant History Past Relevant Medical Conditions: Comments Relevant Medical Conditions Comments: See Eval Note Right or Left Handed: Ambidextrous Employment: Unemployed (Not on disability right now.) Intake Information: Prescription present Previous Treatment: Pain meds , NSAIDs , Injections (Injections for both shoulders previously and B Knees at least 3.) Falls Interview: No positive findings with falls interview Spine History Pain is Better Sometimes: (Lying Prone.) Sleep Affected by Pain: Pain keeps from falling asleep, Pain awakens Pain: Pain Pain Level: 3 Pain Location: Shoulder - Right Description: Dull, Aching Additional Pain Information : Location 2 Pain Level 2: 4 Pain Location 2: Low Back/Lumbar Spine- Midline, Knee - Right, Knee - Left Description 2: Aching PAST MEDICAL HISTORY Diagnosis Date ASCUS with positive high risk HPV cervical 05/2017 [facility] Myopia, bilateral 12/23/2017 Obsessive-compulsive disorders Other specified anemias PMH - PAST MEDICAL HISTORY OF HIATAL HERNIA Psychosis (HCC) Dr. Rocha at counseling center PROMIS Scales 05/09/2024 01/20/2024 10/20/2023 Higher is Better Phys Func - T Score 33 (moderate dysfunction) 30 (moderate dysfunction) 33 (moderate dysfunction) Phys Func - Percentile 4 2 4 Self-Eff Symptom - T Score 37 (Low) 39 (Low) 39 (Low) Self-Eff Symptom - Percentile 10 14 14 01/20/2024 10/20/2023 03/23/2023 Lower is Better Pain Interference - T Score 70 (moderate) 72 (severe) 70 (moderate) Pain Interference - Percentile 2 1 2 T-scores: mean of general population = 50. 5 points is clinically meaningfully difference Percentiles provide an indication of how the patient's score ranks in relation to the general population. Higher percentile rankings indicate better function/quality of life. 50th percentile is the average of the general population and indicates half of respondents had a worse score. OBJECTIVE MEASURES WITH LEVEL OF FUNCTION: Posture / Alignment Posture: Forward head, Rounded shoulders, Increased lumbar lordosis Shoulder Observations R Shoulder Palpation Tenderness: Bicipital groove, AC joint, Comments R Shoulder Palpation Tenderness Comments: RC Attachment at GT. Knee Observations R Knee Palpation Tenderness: Medial joint line L Knee Palpation Tenderness: Medial joint line Spine Observations Spine Observations: Increased Lumbar Lordosis R Lumbar Spine Palpation Tenderness: Paraspinals, Spinous process, Quadratus Lumborum L Lumbar Spine Palpation Tenderness: Paraspinals, Spinous process, Quadratus Lumborum Lumbar Spine AROM Lumbar Flexion: Normal Lumbar Extension: Normal Lumbar R Side [place]: Minimal limitation Lumbar L Side [place]: Minimal limitation Lumbar R Side-Bend: Normal, Pain during movement Lumbar L Side-Bend: Normal Lumbar R Rotation: Normal Lumbar L Rotation: Normal Lumbar Spine AROM Comments: No Radicular Sxs down the legs. UE AROM R Shoulder Flex: 170 Degrees (No-Pain) R Shoulder ABduction: 150 Degrees (Painful) R Shoulder Internal Rotation (Functional): T6 Aberrant Movement R Shoulder External Rotation (Functional): T2 L Shoulder Internal Rotation (Functional): T6 Aberrant Movement L Shoulder External Rotation (Functional): T2 LE AROM R LE AROM: flexion to 100+ degrees, full extension, internal/external rotation adequate and no pain L LE AROM: flexion to 100+ degrees, full extension, internal/external rotation adequate and no pain LE PROM R Knee Extension: 0 Degrees R Knee Flexion: 125 Degrees L Knee Extension: 0 Degrees L Knee Flexion: 125 Degrees LE Joint Mobility R Patellar Mobility: WNL L Patellar Mobility: WNL UE and Cervical Strength R UE Strength: Grossly 5/5, 4/5 with scaption, abd and ER. L UE Strength: Grossly 5/5 LE Strength R LE Strength: SLR: 13 L LE Strength: SLR: 10 R Hip Flexion (L2): 4/5 R Hip ABduction: 4/5 R Knee Extension (L3): 5/5 R Knee Flexion: 5/5 L Hip Flexion (L2): 4/5 L Hip ABduction: 4/5 L Knee Extension (L3): 5/5 L Knee Flexion: 5/5 Lower Extremity Dynamometer Testing : Yes Dynamometer Strength Right Quadriceps Strength (lbs): 29.1 Left Quadriceps Strength (lbs): 27.4 Quad Strength Limb Symmetry Index (%): 106.20 Right Hamstring Strength (lbs): 28.9 Left Hamstring Strength (lbs): 27.9 Hamstring Strength Limb Symmetry Index(%): 103.58 Special Tests - Shoulder Shoulder Special Tests: Neer, Empty Can, Solano-Eduar Empty Can: Right Positive Solano-Eduar: Right Positive Neer: Right Positive Gait Weight Bearing Status: FWB Gait Observation: Non-remarkable. Stairs: Non-remarkable. However, subjectively painful. Functional Performance Test Results 30 Second Chair Stand Test: 11 reps (Bother Knees at 9 reps.) 5 Times Sit to Stand Test : 13.39 sec Education: Education Learning Preferences: Demonstration, Explanation, Printed Materials Barriers: None Learning/educational needs: Home exercise program, Safety, Plan of Care, Health promotion, Lifestyle changes, Posture, Body Mechanics Education Provided: Yes, see treatment interventions for education provided Education Provided To: Patient Education Mode/Type: Demonstration, Explanation/Discussion, Literature/Printed Materials Response to Education/Teach Back: States/Identifies TREATMENT: PT Treatment Interventions: Therapeutic Exercise, Self-Jail Management Evaluation Therapeutic Exercise: 1: Reviewed HEP Exercises. PT provided demonstration and cueing of exercises for proper completion. Pt demonstrated understanding. 2: Discussed therapy goals, exercise purpose, HEP handout provided. Discussed exam findings. 3: *R ER in S/L: x10, towel placement. 4: *R Scaption in Stand: x10. 5: *Scap Squeezes: x10, 2-3sec hold. no shrugs. 6: *TrA Bracing: x10, 5-sec hold. Demoed proper form. 7: *HL SKC: x30 bilat. 8: *HL Regino: x30 bilat. 9: *HL LTR: x10 jeanmarie, 3-5 hold. 10: *HL SLR: x10 each. 11: *Standing Hip ABD: x10 jeanmarie. 12: Discussed exercise purposes and rationale for. Discussed treatment options moving forward. Skilled Intervention: Patient was educated in proper exercise technique and purpose for exercises. Reviewed and educated patient on additions/changes for home exercise program as above (*). Skilled judgment was used in selection of appropriate interventions. Provided written instruction for home exercise program to facilitate proper performance and compliance. Correct performance of therapeutic exercises was facilitated with verbal and visual cuing. Self-Jail Management: 1: *Discussed POC; educated on rehab process for current findings and rehab for degenerative changes at the low back, knees & shoulder. 2: *Reviewed, discussed and light education on patients radiographic images (shoulder, knee and low back). Educated on anatomy of the low back, knees and shoulder with images/pictures. Discussed rehab implications regarding images. Skilled Intervention: Skilled judgment in the selection of proper modification for activity of daily living/home management based on clinical presentation, deficits, and needs. Activity progression based on professional judgement. Billing * Evaluation Low Complexity: 1 Unit Therapeutic Exercise Treatment Minutes: 24 Self-Care/Home Management Treatment Minutes: 15 Skilled Treatment Time Minutes (timed and untimed codes): 60 Total Session Time (minutes): 60 Session Start Time : 1000 Session Stop Time : 1100 Bennie Angel PT documented in this encounter [facility] 05-12-2024 Note HNO ID: [id number] Author: BENNIE ANGEL PT Service: ? Author Type: Physical Therapist Type: Progress Notes Filed: 05/12/2024 11:35 Note Text: Episode Visit Count: 1 Therapist That Will Accept/Oversee The Plan Of Care: Bennie Angel PT. Start of Care Date: 05/12/24 Onset Date: (Low Back since 14 years old, B Knees 15 years ago, and R Shoulder Fall 2023.) Plan of Care Certification Date: 05/12/24 Next Certification Due Date: 06/24/24 Patient Identified by Name and Date of : Yes REHABILITATION AND SPORTS THERAPY PHYSICAL THERAPY EVALUATION PLAN OF CARE: Assessment: Lyndon Burroughs presents with chief complaint of Chronic Low Back AND B Knee Pain as well as R Shoulder pain (started fall 2023) that interferes with stair negotiation, physical activities, walking, lifting, kneeling, sleeping, reaching behind back, reaching overhead, use hand with arm at shoulder level, weight bearing . The patient presents with impairments in ADL's, independence in exercise, overall function, patient reported outcome measures, posture, range of motion, strength, symptom management, and tissue tenderness. PROMIS? (Patient-Reported Outcomes Measurement Information System) scores were reviewed and identified as a rehabilitation concern. Prognosis for therapy is Fair due to: Prognosis may be improved by, chronic nature of impairments, limited tolerance to activity current objective clinical presentation. The patient will benefit from skilled therapy services to meet the goals established for this plan of care as noted below. Classification Pain Mechanism Classification: Nociceptive Low Back Pain Classification: Movement Control Goals for Episode of Care: established 05/12/24 Patient reported outcome of pain Interference will decrease T -score by a minimum of 5 points. Patient reported outcome of physical function will increase T-score by a minimum 5 points. [place] in home exercise program. Perform reaching overhead, across body and behind back with decreased report of symptoms/pain in 6-8 weeks. Perform standing / walking / stairs with decreased report of symptoms/pain in 6-8 weeks. Patient will improve 5 time sit to stand to demonstrate improvement in functional lower extremity strength. Patient will increase strength of trunk to 4+/5 to allow for return to prior functional status and perform ADLs. Increase strength of B lower extremity AND R upper extremity to 5/5 MMT for improved ADL/IADLs. Sleep through night without pain/symptoms. Patient Goals: Alleviate Pain. Time Frame for Goals and Treatment : 07/07/24 Planned Interventions, Frequency, and Duration: Current Frequency: 2x/week Duration: 4 weeks Total Number of Visits Planned: 8 Planned Treatment Interventions: Therapeutic exercise (69124), Neuromuscular re-education (84218), Manual therapy (64024), Therapeutic activities (98053), Self-senior care management (04467), Patient/Family/Caregiver Education PLAN FOR NEXT VISIT: Review, correct and progress HEP. Tib-Fem Distraction for knee relief. Can trial low back traction. Short step ups as tolerated. Patient demonstrates good understanding of plan of care and treatment. The above goals and plan of care were discussed and agreed upon by patient/family. SUBJECTIVE: States I am here for my entire body. States it is a good day for her pain despite having pain. R Shoulder pain came on in Fall 2023 insidiously. Worst with reaching across and overhead, trouble with turning in to look at her watch. Long history of low back AND B knee pain for her. Saw Ortho for B Knees AND DORA wanted her to see a resource management specialist. Back hurts constantly with standing and walking, has to take breaks frequently, good day can walk a 1/2 mile, bad day hard getting outside to her car. Stairs and decline walking are troublesome for knees. Low back is midline pain that radiates out. Knee pain is inferior and medial. R Shoulder pain is deep, can radiate down to mid-delt. Denies N/T down bilateral legs. Has done multiple injections for her knees and shoulders. Tylenol, AND NSAIDs dull all her pain. Patient Goals: Alleviate Pain. Functional Limitations: stair negotiation, physical activities, walking, lifting, kneeling, sleeping, reaching behind back, reaching overhead, use hand with arm at shoulder level, weight bearing Prior Level of Function: Independent without limitations Relevant History Past Relevant Medical Conditions: Comments Relevant Medical Conditions Comments: See Eval Note Right or Left Handed: Ambidextrous Employment: Unemployed (Not on disability right now.) Intake Information: Prescription present Previous Treatment: Pain meds , NSAIDs , Injections (Injections for both shoulders previously and B Knees at least 3.) Falls Interview: No positive findings with falls interview Spine History Pain is Better Sometimes: (Lying Prone.) Sleep Affected by Pain (more content not included)... [facility] 05-10-2024 History of Present illness Narrative Radiology Service Progress Note PATIENT NAME: Lyndon Burroughs DATE OF SERVICE: May 10, 2024 TIME: 1:13 PM PATIENT IDENTITY VERIFICATION COMPLETED USING TWO (2) IDENTIFIERS: Name and Date of confirmed by patient verbally. FALL SCREENING: Has the patient had 2 falls in the last year or 1 fall with injury or currently using an Ambulatory Assistive Device (Walker, Cane, Wheelchair, Crutches, etc.)? No PATIENT GENDER DATA: Assigned female at . status: : No status: NO. PATIENT RELEVANT IMPLANT DATA REVIEWED: Not Applicable PATIENT PRESENTS WITH AN IMPLANTABLE OR ATTACHED POOLING OPERATOR: No RADIOLOGY DEPARTMENT: Mammography PERIPHERAL IV DATA: Not applicable SIGNED BY: RT Asher(Karina) May 10, 2024 1:13 PM documented in this encounter [facility] 05-10-2024 Note HNO ID: [id number] Author: SHARON RAMIREZ RT(R) Service: ? Author Type: Technologist Type: Progress Notes Filed: 05/10/2024 13:14 Note Text: Radiology Service Progress Note PATIENT NAME: Lyndon Burroughs DATE OF SERVICE: May 10, 2024 TIME: 1:13 PM PATIENT IDENTITY VERIFICATION COMPLETED USING TWO (2) IDENTIFIERS: Name and Date of confirmed by patient verbally. FALL SCREENING: Has the patient had 2 falls in the last year or 1 fall with injury or currently using an Ambulatory Assistive Device (Walker, Cane, Wheelchair, Crutches, etc.)? No PATIENT GENDER DATA: Assigned female at . status: : No status: NO. PATIENT RELEVANT IMPLANT DATA REVIEWED: Not Applicable PATIENT PRESENTS WITH AN IMPLANTABLE OR ATTACHED POOLING OPERATOR: No RADIOLOGY DEPARTMENT: Mammography PERIPHERAL IV DATA: Not applicable SIGNED BY: RT Asher(Karina) May 10, 2024 1:[address] [facility] 05-09-2024 Note HNO ID: [id number] Author: DESIRAE ZAMUDIO PA-C Service: ? Author Type: Physician Recreational Therapy Aide Type: Progress Notes Filed: 05/09/2024 11:59 Note Text: Desirae Zamudio PA-C Department of Orthopaedics Orthopaedics [address] [facility] [address] Dept: [phone] Dept May 09, 2024 CHIEF COMPLAINT: Established Patient and Knee Pain of the Left Knee and Established Patient and Knee Pain of the Right Knee (5 months post visit OA bilateral knees with injections given) Ms. Lyndon Burroughs is a 43 year old female who presents with ongoing pain in both of her knees. Pain is a 5 out of 10 aching that is worse with activity. She has not upcoming trip to [place] and would like to discuss corticosteroid injections prior. She has had corticosteroid injections in the past which have been of benefit. She is a bit discouraged as she has gained some weight after some adjustments were made to her mental health medications. She admits that her diet is not the best, she does have a dietary consult plan for early May. She was walking quite a bit in the past but has kind of gotten out of her routine. She is also tried oral diclofenac, she finds that the Tylenol and ibuprofen [id number] are much more effective for her. She also complains of pain across her low back, the pain in her low back does bother her when she is standing or walking for long periods of time. She also notes that direct pressure over the area, like if her cat walks across her back, is uncomfortable. 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 I would like to get her into some PT for her low back as well. Advised her to proceed with dietary consult as planned. Will continue to monitor patient for Degeneration of intervertebral disc of lumbar region with lower extremity pain Primary osteoarthritis of both knees (primary encounter diagnosis), patient to schedule visit as per follow up discussed. Ms. Lyndon Burroughs was advised as to contrast therapies and/or to take analgesics/anti-inflammatories as needed and all contraindications were reviewed. OBJECTIVE: Ms. Lyndon Burroughs is a pleasant 43 year old in no apparent distress. Gen:LMP 03/06/2024 nl development, obese, no deformities ENT: Normocephalic, normal hearing, moist mucosa CV: Pulses:DP/PT= 2+ and symmetric, capillary refill < 2 secs, no peripheral edema/varicosities Skin: no rash, bruising or lesions. Good turgor. Psych: cooperative and appropriate, alert and oriented x 3, good mood and affect. Musculoskeletal: KNEE EXAM: Left: Alignment: Neutral Range of motion is lacking a few degrees secondary to tight hamstrings degrees in extension and 120 degrees of flexion. Extension La degrees Pain with ROM: No Effusion: None Tender to the palpation of Patellar tendon and Medial joint line Pain with patellar compression: Yes Stability: Anterior/Posterior stable and Varus/Valgus stable Hip Exam: flexion to 100+ degrees, full extension, internal/external rotation adequate and no pain with log roll Neurovascular Status: Sensation Intact, Moves foot and ankle up AND down and 2+ dorsalis pedis Right: Alignment: Valgus deformity, Correctable Range of motion is lacking a few degrees secondary to tight hamstrings degrees in extension and 120 degrees of flexion. Extension La degrees Pain with ROM: Yes Effusion: Mild Tender to the palpation of Patellar tendon and Medial femoral condyle Pain with patellar compression: Yes Stability: Anterior/Posterior stable and Varus/Valgus stable Hip Exam: flexion to 100+ degrees, full extension, internal/external rotation adequate and no pain with log roll Neurovascular Status: Sensation Intact, Moves foot and ankle up AND down and 2+ dorsalis pedis Imaging: IMPRESSION: Severe bilateral medial compartment osteoarthritis. 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: GIUSEPPE Transcribe Date/Time: May 05 2024 7:26P Dictated by : NATA LOYD MD This examination was interpreted and the report reviewed and electronically signed by: NATA LOYD MD on May 05 2024 7:26PM EST Results-Findings * * *Final Report* * * DATE OF EXAM: Apr 29 2024 12:43PM WOX [id number] - XR KNEE 4V AP/PA/LAT/MERCH JEANMARIE / PROCEDURE REASON: multiple diagnoses * * * * Physician Interpretation * * * * EXAMINATION / TECHNIQUE: XR KNEE 4V AP/PA/LAT/MERCH JEANMARIE HISTORY: chronic bilateral knee pain. Pain in both knees, unspecified chronicity Pain in both knees, unspecified chronicity COMPARISON: 03/27/2023. RESULT: No acute fracture or dislocation in either knee. Severe bilateral medial compartment osteoarthritis. No large joint effusion in eithe (more content not included)... [facility] 05-09-2024 History of Present illness Narrative Desirae Zamudio PA-C Department of Orthopaedics Orthopaedics [address] [facility] [address] Dept: [phone] Dept May 09, 2024 CHIEF COMPLAINT: Established Patient and Knee Pain of the Left Knee and Established Patient and Knee Pain of the Right Knee (5 months post visit OA bilateral knees with injections given) Ms. Lyndon Burroughs is a 43 year old female who presents with ongoing pain in both of her knees. Pain is a 5 out of 10 aching that is worse with activity. She has not upcoming trip to [place] and would like to discuss corticosteroid injections prior. She has had corticosteroid injections in the past which have been of benefit. She is a bit discouraged as she has gained some weight after some adjustments were made to her mental health medications. She admits that her diet is not the best, she does have a dietary consult plan for early May. She was walking quite a bit in the past but has kind of gotten out of her routine. She is also tried oral diclofenac, she finds that the Tylenol and ibuprofen [id number]-iltrqnt are much more effective for her. She also complains of pain across her low back, the pain in her low back does bother her when she is standing or walking for long periods of time. She also notes that direct pressure over the area, like if her cat walks across her back, is uncomfortable. 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 I would like to get her into some PT for her low back as well. Advised her to proceed with dietary consult as planned. Will continue to monitor patient for Degeneration of intervertebral disc of lumbar region with lower extremity pain Primary osteoarthritis of both knees (primary encounter diagnosis), patient to schedule visit as per follow up discussed. Ms. Lyndon Burroughs was advised as to contrast therapies and/or to take analgesics/anti-inflammatories as needed and all contraindications were reviewed. OBJECTIVE: Ms. Lyndon Burroughs is a pleasant 43 year old in no apparent distress. Gen:LMP 03/06/2024 nl development, obese, no deformities ENT: Normocephalic, normal hearing, moist mucosa CV: Pulses:DP/PT= 2+ and symmetric, capillary refill < 2 secs, no peripheral edema/varicosities Skin: no rash, bruising or lesions. Good turgor. Psych: cooperative and appropriate, alert and oriented x 3, good mood and affect. Musculoskeletal: KNEE EXAM: Left: Alignment: Neutral Range of motion is lacking a few degrees secondary to tight hamstrings degrees in extension and 120 degrees of flexion. Extension La degrees Pain with ROM: No Effusion: None Tender to the palpation of Patellar tendon and Medial joint line Pain with patellar compression: Yes Stability: Anterior/Posterior stable and Varus/Valgus stable Hip Exam: flexion to 100+ degrees, full extension, internal/external rotation adequate and no pain with log roll Neurovascular Status: Sensation Intact, Moves foot and ankle up & down and 2+ dorsalis pedis Right: Alignment: Valgus deformity, Correctable Range of motion is lacking a few degrees secondary to tight hamstrings degrees in extension and 120 degrees of flexion. Extension La degrees Pain with ROM: Yes Effusion: Mild Tender to the palpation of Patellar tendon and Medial femoral condyle Pain with patellar compression: Yes Stability: Anterior/Posterior stable and Varus/Valgus stable Hip Exam: flexion to 100+ degrees, full extension, internal/external rotation adequate and no pain with log roll Neurovascular Status: Sensation Intact, Moves foot and ankle up & down and 2+ dorsalis pedis Imaging: IMPRESSION: Severe bilateral medial compartment osteoarthritis. 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: GIUSEPPE Transcribe Date/Time: May 05 2024 7:26P Dictated by : NATA LOYD MD This examination was interpreted and the report reviewed and electronically signed by: NATA LOYD MD on May 05 2024 7:26PM EST Results-Findings * * *Final Report* * * DATE OF EXAM: Apr 29 2024 12:43PM WOX [id number] - XR KNEE 4V AP/PA/LAT/MERCH JEANMARIE / PROCEDURE REASON: multiple diagnoses * * * * Physician Interpretation * * * * EXAMINATION / TECHNIQUE: XR KNEE 4V AP/PA/LAT/MERCH JEANMARIE HISTORY: chronic bilateral knee pain. Pain in both knees, unspecified chronicity Pain in both knees, unspecified chronicity COMPARISON: 03/27/2023. RESULT: No acute fracture or dislocation in either knee. Severe bilateral medial compartment osteoarthritis. No large joint effusion in either knee. Supporting Subjective Information Below: Past Surgical History: PAST SURGICAL HISTORY Procedure Laterality Date ENDOSCOPY PROC Medications: Current Outpatient Medications Medication Sig Norethindrone, Contraceptive, (ORTHO MICRONOR) 0.35 mg tablet Take 1 tablet by mouth once daily. cyclobenzaprine (FLEXERIL) 10 mg tablet Take 1 tablet by mouth at bedtime as needed for muscle spasm or pain. DULoxetine (CYMBALTA) 30 mg capsule Take 60 mg by mouth once daily. ATIVAN 0.5 mg buPROPion (WELLBUTRIN) 75 mg tablet Take 100 mg by mouth once daily. amphetamine-dextroamphetamine (ADDERALL) 15 mg tablet Take 7 mg by mouth as needed. MULTIVITAMIN ORAL Take by mouth once daily. elderberry fruit (ELDERBERRY ORAL) Take by mouth. No current facility-administered medications for this visit. Allergies: Latex and Tomatoes ROS: General (negative for fatigue, malaise, weight loss/gain) HEENT (negative for headache, earache, recent vision changes, sinus pain, sore throat) Respiratory (no recent shortness of breath, hemoptysis) CV (negative for chest tightness, palpitations) Musculoskeletal (see HPI) Psych (no depression, anxiety) This note was partially generated using mySchoolNotebook voice recognition system, and there may be some incorrect words, spellings, and punctuation that were not noted in checking the note before saving. Desirae Zamudio PA-C Patient presents with: Left Knee - Established Patient, Knee Pain Right Knee - Established Patient, Knee Pain: 5 months post visit OA bilateral knees with injections given AMB ROOMING INTAKE FLOWSHEET DATA Pain Pain Level: 5 Pain Location: (Bilateral knees) Description: Dull, Aching Duration Amount of Time: 3 Duration Units: Months Frequency: Continuous Intervention/Comfort measure: Medication Patient here for follow up bilateral knee pain. States injections have helped. She would like injections today. Taking Tylenol and Ibuprofen for the pain. Has been applying tiger balm and feels it helps the most. New x-rays done on 05/09/24. documented in this encounter [facility] 05-09-2024 Note HNO ID: [id number] Author: SEEMA FOFANA MA Service: ? Author Type: Director Foundation Type: Progress Notes Filed: 05/09/2024 11:59 Note Text: Patient presents with: Left Knee - Established Patient, Knee Pain Right Knee - Established Patient, Knee Pain: 5 months post visit OA bilateral knees with injections given AMB ROOMING INTAKE FLOWSHEET DATA Pain Pain Level: 5 Pain Location: (Bilateral knees) Description: Dull, Aching Duration Amount of Time: 3 Duration Units: Months Frequency: Continuous Intervention/Comfort measure: Medication Patient here for follow up bilateral knee pain. States injections have helped. She would like injections today. Taking Tylenol and Ibuprofen for the pain. Has been applying tiger balm and feels it helps the most. New x-rays done on 05/09/24. [facility] 05-02-2024 Telephone encounter Note Refill request received via [employer]. Patient last seen for annual on 01/08/23. Patient has upcoming appointment on 05/19/24. Please address in CP's absence. Josey Hutchinson RN T [facility] 05-02-2024 Telephone encounter Note Prescription Refill Information The patient has been identified by name and date of : Yes Caregiver verified no other encounters exist for this prescription request: Yes Caregiver confirmed with patient/requestor that no other refills are due, in the near future, with this provider at this time: Yes The last office visit in the department: 12/03/23 Does the patient have a future office visit with this provider/department: Yes 06/03/24 Requested Prescriptions Pending Prescriptions Disp Refills cyclobenzaprine (FLEXERIL) 10 mg tablet 30 tablet 1 Sig: Take 1 tablet by mouth at bedtime as needed for muscle spasm or pain. Kathleen Granger LPN May 02, 2024 1:58 PM [facility] 05-02-2024 Miscellaneous Notes Refill request received via [employer]. Patient last seen for annual on 01/08/23. Patient has upcoming appointment on 05/19/24. Please address in CP's absence. Josey Hutchinson RN documented in this encounter [facility] 05-02-2024 Miscellaneous Notes Prescription Refill Information The patient has been identified by name and date of : Yes Caregiver verified no other encounters exist for this prescription request: Yes Caregiver confirmed with patient/requestor that no other refills are due, in the near future, with this provider at this time: Yes The last office visit in the department: 12/03/23 Does the patient have a future office visit with this provider/department: Yes 06/03/24 Requested Prescriptions Pending Prescriptions Disp Refills cyclobenzaprine (FLEXERIL) 10 mg tablet 30 tablet 1 Sig: Take 1 tablet by mouth at bedtime as needed for muscle spasm or pain. Kathleen Granger LPN May 02, 2024 1:58 PM documented in this encounter [facility] 04-29-2024 History of Present illness Narrative Radiology Service Progress Note PATIENT NAME: Lyndon Burroughs DATE OF SERVICE: April 29, 2024 TIME: 12:25 PM PATIENT IDENTITY VERIFICATION COMPLETED USING TWO (2) IDENTIFIERS: Name and Date of confirmed by patient verbally. FALL SCREENING: Has the patient had 2 falls in the last year or 1 fall with injury or currently using an Ambulatory Assistive Device (Walker, Cane, Wheelchair, Crutches, etc.)? No PATIENT GENDER DATA: Assigned female at . status: : No status: NO. PATIENT RELEVANT IMPLANT DATA REVIEWED: Not Applicable PATIENT PRESENTS WITH AN IMPLANTABLE OR ATTACHED POOLING OPERATOR: No RADIOLOGY DEPARTMENT: General X-ray: Exam(s) Completed: Lower Extremity X-Ray(s): Knee, AP / Lat / Tunne / Merchant Bilateral PERIPHERAL IV DATA: Not applicable SIGNED BY: Geetha Simms April 29, 2024 12:25 PM documented in this encounter [facility] 04-29-2024 Note HNO ID: [id number] Author: SHASHA RUFF Tech Service: ? Author Type: Technologist Type: Progress Notes Filed: 04/29/2024 12:43 Note Text: Radiology Service Progress Note PATIENT NAME: Lyndon Burroughs DATE OF SERVICE: April 29, 2024 TIME: 12:25 PM PATIENT IDENTITY VERIFICATION COMPLETED USING TWO (2) IDENTIFIERS: Name and Date of confirmed by patient verbally. FALL SCREENING: Has the patient had 2 falls in the last year or 1 fall with injury or currently using an Ambulatory Assistive Device (Walker, Cane, Wheelchair, Crutches, etc.)? No PATIENT GENDER DATA: Assigned female at . status: : No status: NO. PATIENT RELEVANT IMPLANT DATA REVIEWED: Not Applicable PATIENT PRESENTS WITH AN IMPLANTABLE OR ATTACHED POOLING OPERATOR: No RADIOLOGY DEPARTMENT: General X-ray: Exam(s) Completed: Lower Extremity X-Ray(s): Knee, AP / Lat / Tunne / Merchant Bilateral PERIPHERAL IV DATA: Not applicable SIGNED BY: Geetha Simms April 29, 2024 12:[address] [facility] 04-05-2024 History of Present illness Narrative [facility] Medical Nutrition Therapy Visit Type: Virtual: I have discussed the nature of this visit with the patient which will occur via [facility] (Phone, Virtual Visit) and she agrees to proceed with this interaction. I have communicated my name and active licensure. The patient's identity and physical location were verified at the time of this visit. Either the patient or their legal registered representative has been informed of the risks and benefits of -- and alternatives to -- treatment through a remote evaluation and consents to proceed with the evaluation remotely. Patient states reason for visit: Weight Management Initial DEMOGRAPHICS: Co-Morbidities: PAST MEDICAL HISTORY Diagnosis Date ASCUS with positive high risk HPV cervical 05/2017 Mood disorder (HCC) counseling center Myopia, bilateral 12/23/2017 Obsessive-compulsive disorders Other specified anemias PMH - PAST MEDICAL HISTORY OF HIATAL HERNIA Psychosis (HCC) Dr. Rocha at [facility] center Activity: Do you do a regular exercise No Limited by chronic pain, wants to go back to gym or walk but feels anxiety Pre-COVID was walking 1mi daily, gym daily, lost 90lb- then gyms closed and depression worsened Symptoms: Patient's symptoms are as follows: Weight Concerns: weight loss How many hours of sleep on average? Did not report Diet History: prefers more cold foods, notes stress eating, skipping some meals Breakfast: pistachios, oatmeal OR yogurt, apple Snack: apple, kind bar, baby carrots, cucumbers, m&ms Lunch: snacking OR skips Dinner: chicken salad sandwich OR airfryer chicken, microwave vegetables Snack: ice cream Fluids 100+ oz water, herbal tea with honey, occasionally energy drink ETOH none Dining/eating out? None due to finances, sometimes [employer] salad Allergies: No Tomatoes, Dislikes Fish Patient / Provider Comments: Depression, Anxiety, ADHD - difficult year in 2023- mother passed, clearing out her home, child is a high school senior, pt is trying to restart in 2024 - lack of support, has 5 cats - endo psych welcome group 02/15/24, no f/u visit scheduled with endo psychology - already seeing psychiatry and therapist- gained 15lb with new medication, turned into a eating machine; child has autism and ARFID, pt feels she may meet some criteria for ARFID as well, seeing therapist is helping with stress - lives with roommate - pre-COVID lost 90lbs with diet and exercise (gym), also wrote a blog at that time that she plans to revisit for motivation - no weight loss medications at this time, will schedule f/u with weight management provider Medications: Current Outpatient Medications Medication Sig DULoxetine (CYMBALTA) 30 mg capsule Take 60 mg by mouth once daily. cyclobenzaprine (FLEXERIL) 10 mg tablet Take 1 tablet by mouth at bedtime as needed for muscle spasm or pain. ATIVAN 0.5 mg Norethindrone, Contraceptive, (ORTHO MICRONOR) 0.35 mg tablet Take 1 tablet by mouth once daily. elderberry fruit (ELDERBERRY ORAL) Take by mouth. buPROPion (WELLBUTRIN) 75 mg tablet Take 100 mg by mouth once daily. amphetamine-dextroamphetamine (ADDERALL) 15 mg tablet Take 7 mg by mouth as needed. MULTIVITAMIN ORAL Take by mouth once daily. No current facility-administered medications for this visit. Labs: Glucose (mg/dL) Date Value 12/03/2023 89 01/25/2021 Unable to assay. No specimen received. Potassium (mmol/L) Date Value 12/03/2023 4.9 01/25/2021 Unable to assay. No specimen received. Sodium (mmol/L) Date Value 12/03/2023 138 01/25/2021 Unable to assay. No specimen received. Chloride (mmol/L) Date Value 12/03/2023 104 01/25/2021 Unable to assay. No specimen received. CO2 (mmol/L) Date Value 12/03/2023 23 01/25/2021 Unable to assay. No specimen received. Creatinine (mg/dL) Date Value 12/03/2023 0.55 01/25/2021 Unable to assay. No specimen received. BUN (mg/dL) Date Value 12/03/2023 11 01/25/2021 Unable to assay. No specimen received. Anion Gap (mmol/L) Date Value 12/03/2023 11 01/25/2021 Unable to assay. No specimen received. Calcium (mg/dL) Date Value 01/25/2021 Unable to assay. No specimen received. Calcium, Total (mg/dL) Date Value 12/03/2023 9.4 Lab Results Component Value Date HBA1C 5.0 01/09/2023 HBA1C 5.1 04/17/2021 HBA1C 5.2 03/13/2018 HBA1C 5.3 10/13/2009 Cholesterol, Total Date Value Ref Range Status 12/05/2023 199 <200 mg/dL Final Comment: <200 mg/dL, Desirable 200-239 mg/dL, Borderline high >239 mg/dL, High HDL Cholesterol Date Value Ref Range Status 12/05/2023 50 >39 mg/dL Final Comment: 40-59 mg/dL, Acceptable >59 mg/dL, High: Negative risk factor for coronary heart disease <40 mg/dL, Low: Positive risk factor for coronary heart disease LDL Cholesterol Date Value Ref Range Status 12/05/2023 129 (H) <100 mg/dL Final Comment: <100 mg/dL, Optimal 100-129 mg/dL, Near optimal/above optimal 130-159 mg/dL, Borderline high 160-189 mg/dL, High >189 mg/dL, Very high Secondary prevention optimal LDL Cholesterol levels are recommended to be < 70 mg/dL Triglyceride Date Value Ref Range Status 12/05/2023 101 <150 mg/dL Final Comment: <150 mg/dL, Normal 150-199 mg/dL, Borderline high 200-499 mg/dL, High >499 mg/dL, Very high Glucose (mg/dL) Date Value 12/03/2023 89 01/25/2021 Unable to assay. No specimen received. Potassium (mmol/L) Date Value 12/03/2023 4.9 01/25/2021 Unable to assay. No specimen received. Sodium (mmol/L) Date Value 12/03/2023 138 01/25/2021 Unable to assay. No specimen received. Chloride (mmol/L) Date Value 12/03/2023 104 01/25/2021 Unable to assay. No specimen received. CO2 (mmol/L) Date Value 12/03/2023 23 01/25/2021 Unable to assay. No specimen received. Creatinine (mg/dL) Date Value 12/03/2023 0.55 01/25/2021 Unable to assay. No specimen received. BUN (mg/dL) Date Value 12/03/2023 11 01/25/2021 Unable to assay. No specimen received. Anion Gap (mmol/L) Date Value 12/03/2023 11 01/25/2021 Unable to assay. No specimen received. Calcium (mg/dL) Date Value 01/25/2021 Unable to assay. No specimen received. Calcium, Total (mg/dL) Date Value 12/03/2023 9.4 Protein, Total (g/dL) Date Value 12/03/2023 7.7 12/28/2015 7.0 Albumin (g/dL) Date Value 12/03/2023 4.3 12/28/2015 4.0 Bilirubin, Total (mg/dL) Date Value 12/03/2023 0.4 12/28/2015 0.3 Alkaline Phosphatase (U/L) Date Value 12/03/2023 89 12/28/2015 78 AST (U/L) Date Value 12/03/2023 22 12/28/2015 14 ALT (U/L) Date Value 12/03/2023 18 12/28/2015 15 ANTHROPOMETRICS Height: Last 1 Encounter Ht Readings: Date: Ht: 03/11/2024 167.6 cm (5' 6) Current weight: Last 3 Encounter Wt Readings: Date: Wt: 03/11/2024 127.9 kg (282 lb) 01/06/2024 123.6 kg (272 lb 7.8 oz) 12/31/2023 126.8 kg (279 lb 8.7 oz) BMI: 45.52 5% -10% Weight loss: 14-28lb Last Wt 03/11/24 : 127.9 kg (282 lb) 5% weight loss = 268 lbs, 10% weight loss = 254 lbs READINESS TO LEARN Cognitive ability: Alert and oriented Motivation to learn: Interested Family support: Unable to assess - Family not present Instruction provided to: Patient Patient learns best by: Individual Instruction Written Instruction - Hand-outs Verbal Instruction Factors affecting learning: None Physical limitations affecting learning: None Stage of Change: Contemplation Nutrition Diagnosis: Overweight Obesity, related to; disordered eating pattern, excess energy intake, physical inactivity, and increased psychological stress, as evidenced by BMI above normative standard for age and gender Calories Needed for Current Weight: Resting Metabolic Rate: 1942 Nutrition Intervention: Discussed the following nutrition topics today at the appointment: --carbohydrate sources and effect on weight management --concepts of the Mediterranean diet for healthy diet choices --reviewed a sample carb controlled Mediterranean style menu --benefits of protein and fiber in foods and effect on satiety --portion sizes for commonly eaten foods --avoiding regular soda, juice, and fried foods --Plate Method: at least 1/2 plate filled with low carb vegetables, 1/4 plate with a protein food that is not fried, 1/4 plate high fiber starch/carb --discussed mindful eating practices and hunger/fullness scale - Lower sodium options, impact on B/P - Importance of eating regularly/ avoiding skipping meals - may help to set reminders for meals/ add meals to to do list - managing night time/ bored eating, may try fidget toy while watching TV at night - Considerations with tracking intake ,importance of sustainable lifestyle changes - Meal planning resources, tips Exercise: --Effect of activity on weight management Education Materials: sent via [employer] message Thriving with the Mediterranean Lifestyle Nutrition Monitoring & Evaluation: Dietitian Goals: Weight Reduction of 5-10% within 6 months Criteria: Weight Patient Stated Goals at today's visit: 1) Add meals to to do list to help avoid skipping meals 2) Start walking when weather is nice, may go to gym if able 3) Create list of healthy and easy meals/snacks Adherence Potential to Goals: Fair Need for Follow up: May 24, 10am virtual visit Referred by: Shakeel Solano,* Piyush Lopez RD Consult Billing Type/Increments: Initial Assessment/15 minutes, 2 increment(s), 30 minutes Start time: 10:00AM End time: 10:30AM My final report will be communicated back to the requesting physician by way of shared medical record. Signed by: Piyush Lopez RD documented in this encounter [facility] 04-05-2024 Note HNO ID: [id number] Author: PIYUSH LOPEZ RD Service: ? Author Type: Registered Dietitian Type: Progress Notes Filed: 04/05/2024 10:38 Note Text: [facility] Medical Nutrition Therapy Visit Type: Virtual: I have discussed the nature of this visit with the patient which will occur via Distance Health (Phone, Virtual Visit) and she agrees to proceed with this interaction. I have communicated my name and active licensure. The patient's identity and physical location were verified at the time of this visit. Either the patient or their legal registered representative has been informed of the risks and benefits of -- and alternatives to -- treatment through a remote evaluation and consents to proceed with the evaluation remotely. Patient states reason for visit: Weight Management Initial DEMOGRAPHICS: Co-Morbidities: PAST MEDICAL HISTORY Diagnosis Date ASCUS with positive high risk HPV cervical 05/2017 Mood disorder (HCC) counseling center Myopia, bilateral 12/23/2017 Obsessive-compulsive disorders Other specified anemias PMH - PAST MEDICAL HISTORY OF HIATAL HERNIA Psychosis ([facility]) Dr. Rocha at [facility] Activity: Do you do a regular exercise No Limited by chronic pain, wants to go back to gym or walk but feels anxiety Pre-COVID was walking 1mi daily, gym daily, lost 90lb- then gyms closed and depression worsened Symptoms: Patient's symptoms are as follows: Weight Concerns: weight loss How many hours of sleep on average? Did not report Diet History: prefers more cold foods, notes stress eating, skipping some meals Breakfast: pistachios, oatmeal OR yogurt, apple Snack: apple, kind bar, baby carrots, cucumbers, mANDms Lunch: snacking OR skips Dinner: chicken salad sandwich OR airfryer chicken, microwave vegetables Snack: ice cream Fluids 100+ oz water, herbal tea with honey, occasionally energy drink ETOH none Dining/eating out? None due to finances, sometimes panera salad Allergies: No Tomatoes, Dislikes Fish Patient / Provider Comments: Depression, Anxiety, ADHD - difficult year in 2023- mother passed, clearing out her home, child is a high school senior, pt is trying to restart in 2024 - lack of support, has 5 cats - endo psych welcome group 02/15/24, no f/u visit scheduled with endo psychology - already seeing psychiatry and therapist- gained 15lb with new medication, turned into a eating machine; child has autism and ARFID, pt feels she may meet some criteria for ARFID as well, seeing therapist is helping with stress - lives with roommate - pre-COVID lost 90lbs with diet and exercise (gym), also wrote a blog at that time that she plans to revisit for motivation - no weight loss medications at this time, will schedule f/u with weight management provider Medications: Current Outpatient Medications Medication Sig DULoxetine (CYMBALTA) 30 mg capsule Take 60 mg by mouth once daily. cyclobenzaprine (FLEXERIL) 10 mg tablet Take 1 tablet by mouth at bedtime as needed for muscle spasm or pain. ATIVAN 0.5 mg Norethindrone, Contraceptive, (ORTHO MICRONOR) 0.35 mg tablet Take 1 tablet by mouth once daily. elderberry fruit (ELDERBERRY ORAL) Take by mouth. buPROPion (WELLBUTRIN) 75 mg tablet Take 100 mg by mouth once daily. amphetamine-dextroamphetamine (ADDERALL) 15 mg tablet Take 7 mg by mouth as needed. MULTIVITAMIN ORAL Take by mouth once daily. No current facility-administered medications for this visit. Labs: Glucose (mg/dL) Date Value 12/03/2023 89 01/25/2021 Unable to assay. No specimen received. Potassium (mmol/L) Date Value 12/03/2023 4.9 01/25/2021 Unable to assay. No specimen received. Sodium (mmol/L) Date Value 12/03/2023 138 01/25/2021 Unable to assay. No specimen received. Chloride (mmol/L) Date Value 12/03/2023 104 01/25/2021 Unable to assay. No specimen received. CO2 (mmol/L) Date Value 12/03/2023 23 01/25/2021 Unable to assay. No specimen received. Creatinine (mg/dL) Date Value 12/03/2023 0.55 01/25/2021 Unable to assay. No specimen received. BUN (mg/dL) Date Value 12/03/2023 11 01/25/2021 Unable to assay. No specimen received. Anion Gap (mmol/L) Date Value 12/03/2023 11 01/25/2021 Unable to assay. No specimen received. Calcium (mg/dL) Date Value 01/25/2021 Unable to assay. No specimen received. Calcium, Total (mg/dL) Date Value 12/03/2023 9.4 Lab Results Component Value Date HBA1C 5.0 01/09/2023 HBA1C 5.1 04/17/2021 HBA1C 5.2 03/13/2018 HBA1C 5.3 10/13/2009 Cholesterol, Total Date Value Ref Range Status 12/05/2023 199 <200 mg/dL Final Comment: <200 mg/dL, Desirable 200-239 mg/dL, Borderline high >239 mg/dL, High HDL Cholesterol Date Value Ref Range Status 12/05/2023 50 >39 mg/dL Final Comment: 40-59 mg/dL, Acceptable >59 mg/dL, High: Negative risk factor for coronary heart disease <40 mg/dL, Low: Pos (more content not included)... [facility] 03-30-2024 Attending History and physical note UPDATED HISTORY AND PHYSICAL EXAMINATION SERVICE DATE: 03/30/2024 SERVICE TIME: 8:07 Participation of a fellow, resident, medical student, or advanced practice provider student in performing the sensitive examination was discussed with the patient or authorized registered representative. The patient or authorized registered representative has agreed to proceed with the sensitive examination. (Sensitive examination includes inspection and/or palpation of the breasts, pelvis, prostate and anorectal regions) PHYSICAL EXAM MUST BE COMPLETED ON ADMISSION The History and Physical (completed in the past 30 days) has been reviewed and the patient has been examined. The contents accurately reflect the patient's condition with the following additions or revisions since the H&P was completed. Examination indicates no changes. This H&P can be found in the Electronic Medical Record . SIGNATURE: Seema Guillory MD PATIENT NAME: Lyndon Burroughs DATE: March 30, 2024 TIME: 9:07 AM Source Note - Dolly Hasikns APRN.CHROME CLEANER - 03/11/2024 10:02 AM EST Images from the original note were not included. [facility] HISTORY AND PHYSICAL EXAMINATION SERVICE DATE: 03/11/2024 SERVICE TIME: 3:21 PM PRIMARY CARE PHYSICIAN: Errol Luu MD Assessment Patient has the following medical conditions which may affect karyn-operative course: Morbid obesity due to excess calories (HCC) Assessment: Body mass index is 45.52 kg/m . Autism spectrum disorder Assessment: high functioning Schizo-affective psychosis (HCC) Assessment: following psych, stable on rx per pt Obsessive compulsive disorder Assessment: stable on rx per pt Chronic fatigue syndrome with fibromyalgia Assessment: controlled on rx and as needed Chronic bilateral low back pain without sciatica Assessment: controlled on rx and as needed Vertigo Assessment: recently evaluated by ENT and neurology 01/06/2024 Merlene Mchugh PA-C Assessment and Plan: (R42) Vertigo (primary encounter diagnosis) (H93.13) Tinnitus, bilateral (R42) Dizziness (H93.8X3) Sensation of fullness in both ears ~audiogram demonstrates normal hearing and normal middle ear function ~discussed masking and distraction for tinnitus. Does not qualify for Tinn[facility] Management Clinic due to medicaid. Referral submitted for [facility] for tinnitus ~referral to Vestibular Rehab and Vestibular Test Battery - I will MyChart with results ~follow up with me as needed HPI: Lyndon is a 43 year old who reports vertigo and tinnitus. Tinnitus started 10-15 years ago. Hears it primarily when it's quiet in both ears. Bothers her quite a bit and struggles despite use of background noises. Denies hearing loss, otalgia, otorrhea, h/o ear surgeries, or tubes. Known cervicalgia. Known bruxism, unable to tolerate bite guard. Vertigo started about 3 years ago. Occurs for a few seconds after turning her head to the left or right or rolling over in bed. She tried Albert/Pereira Daroff Maneuvers at home which helped with her symptoms partially, but she did not try again due to intense symptoms while performing. Recalls 2 particularly bad episodes that lasted 30-40 minutes after waking. No associated hearing changes. Dizziness also started 3 years ago described as unsteadiness, lightheadedness, or feeling like she could pass out. This occurs when she stands and usually lasts for a brief period. Fyae Activity Status Index: METS: Climb a flight of stairs or walk up a hill (5.50 METs) DASI Score: 5.5 Patient denies any chest pain or undue shortness of breath with the above physical activity. Clinical Frailty Scale: 3. Well, with treated comorbid disease STOP-Bang Score: BMI greater than 35 kg/m^2 Has a large neck Denies snoring loudly Denies feeling tired, fatigued, or sleepy during the daytime Has not been observed to stop breathing or choking/gasping during sleep Denies having high blood pressure Patient 50 years old or younger Non-male patient STOP-Bang Score: 2 [id number] Score: Age: <65 Sex: female CHF history: No Hypertension history: No Vascular disease history: No Diabetes history: No [id number] Score: ARISCAT Score: Age: <=50 Preoperative SpO2: >=96% Respiratory infection in the last month: No Preoperative anemia: No Surgical incision: peripheral Duration of surgery: <2 hrs Emergency procedure: No ARISCAT Score: 0 ANESTHESIA FINDINGS: Intubation History: No history of difficult intubation Significant Anesthesia Considerations: none Airway History: No history of difficult airway I - PHYSICAL EVALUATION AIRWAY Patient intubated: No. Tracheostomy tube not present Mallampati: II. TM distance: >3 FB. Neck ROM: full ROM without neurological symptoms. Mouth opening: adequate. Short neck: no. Thick neck: yes Herr present: no Lip Bite Test: III Microretrognathia/Micronagthia/Rec essed Chin: Yes DENTAL Dental findings: teeth intact. II - ANESTHESIA PLAN Anesthetic Plan: other Beta Kevin Monitoring Plan Post Procedure Analgesic Plan Prepared for Surgery: optimally prepared for surgery. CONSULTS: Patient does not require consults for optimization at this time Planned Anesthetic: other anesthesia choice The Following Tests/Procedures Have Been Initiated: Orders Placed This Encounter DULoxetine (CYMBALTA) 30 mg capsule Sig: Take 60 mg by mouth once daily. REASON FOR VISIT: Lyndon Burroughs is a 43 year old female who is scheduled for * No surgery found * at the request of Dr. Seema Guillory for consultation. My final recommendation will be communicated back to the requesting physician by way of shared medical record or letter. Subjective The patient has the following: COVID-19 Immunization Status Covid-19 Vaccine (Series Information) Completed 12/03/2023 Imm Admin: COVID-19 vaccine, age 12+ yr (PFIZER-BIONTECH COMIRNATY) 04/12/2021 Imm Admin: COVID-19 original vaccine, age 12+ yr, monovalent (PFIZER-BIONTECH - MUNGUIA TOP) 05/11/2020 Imm Admin: COVID-19 original vaccine, age 12+ yr, monovalent (PFIZER-BIONTECH - PURPLE TOP) Only the first 3 history entries have been loaded, but more history exists. CHIEF COMPLAINT: Pre-op exam HPI: Lyndon Burroughs is a 43 year old seen for PAC due to scheduled above procedure for colon cancer screening. 12/07/2023, Dr. Seema Guillory HPI: The patient is a 43 year old female referred for endoscopy. Lyndon manriquez presents for screening for colon cancer via colonoscopy The patient denies blood in stools, denies abdominal pain, and denies changes in bowel habits. Patient's mother had appendiceal cancer, diagnosed in her late 60s and has passed due to this. Her maternal grandmother had colon cancer She denies previous colonoscopy. She did have previous EGD at age 17. REVIEW OF SYSTEMS: General: No weight loss, malaise or fevers. Neurological: +vertigo Positive for: headaches (otc analgesics as needed). Negative for: cerebral palsy, BATCH AND FURNACE MANAGER tumor, dementia, impaired sensorium, multiple sclerosis, Parkinson's disease, peripheral neuropathy, seizures, TIA and strokes. Respiratory: No history of current cough or dyspnea, or pneumonia in the past 6 weeks. No history of respiratory/pulmonary symptoms or problems. Cardiovascular: Positive for: arrhythmia (+palpitations) Negative for: abdominal aortic aneurysm, AICD/PPM, angina, anticoagulation therapy, atrial fibrillation, CAD, chest pain, CHF, congenital heart defect, DVT/PE, hyperlipidemia, hypertension, recent OK, murmur/valvular heart disease, PTCA, PVD, open heart surgery and valve surgery. GI: See HPI. : No history of dysuria, frequency or incontinence, stones or chronic kidney disease. No difficulty urinating, nocturia > 1 time per night or hematuria. CONSULTING PRACTICE MANAGER: Negative for abnormal vaginal bleeding, abnormal vaginal discharge. Endocrine: No history of diabetes. Has not taken steroids within the past 30 days. No history of endocrinological symptoms or problems. Hematology: No history of bleeding or clotting disorder. Patient is not taking anti-coagulation or platelet medications. No history of hematological symptoms or problems. Oncology: No history of CA metastasis, chemo within 30 days, or radiotherapy within 90 days. No history of oncological symptoms or problems. Psych: Positive for: ADHD (rx as needed), anxiety (on rx) and depression (on rx). Negative for: Marijuana Use. Musculoskeletal: Positive for: back pain and joint pain. Skin: Negative for lesions, rash and itching. Implanted Devices: No implanted devices. PAST MEDICAL HISTORY Diagnosis Date ASCUS with positive high risk HPV cervical 05/2017 Mood disorder (HCC) counseling center Myopia, bilateral 12/23/2017 Obsessive-compulsive disorders Other specified anemias PMH - PAST MEDICAL HISTORY OF HIATAL HERNIA Psychosis (HCC) Dr. Rocha at counseling center PAST SURGICAL HISTORY Procedure Laterality Date ENDOSCOPY PROC FAMILY HISTORY Problem Relation Age of Onset Psychiatry Mother DEPRESSION,SUICIDAL IDEATION Cancer Mother cancer in the appendix Leukemia Mother Hypertension Father Heart Father OK Psychiatry Father DEPRESSION, bipolar COPD Father smoked from age 12 other (CHF) Father Diabetes Sister Depression Sister other (HTN) Sister Depression Brother other (htn) Brother Diabetes Brother Bipolar disorder Brother Psychiatry Brother Schizoaffective Alcohol/Drug Maternal Grandmother ALCOHOLIC Alzheimer's Disease Maternal Grandmother Arthritis Maternal Grandmother Colon Cancer Maternal Grandmother Psychiatry Maternal Grandmother Alcohol/Drug Maternal Grandfather ALCOHOLIC Stroke Maternal Grandfather Alcohol/Drug Paternal Grandmother ALCOHOLIC Heart Paternal Grandmother CHF Alcohol/Drug Paternal Grandfather ALCOHOLIC Heart Paternal Grandfather OK Stroke Paternal Grandfather Alzheimer's Disease Paternal Grandfather Diabetes Maternal Uncle Colon Cancer Maternal Uncle Cancer Maternal Uncle pancreatic cancer Breast Cancer Paternal Aunt Diabetes Paternal Aunt PAUNT X 5 Diabetes Paternal Uncle Autism Other Anxiety disorder Other Tourette syndrome Other Malig Hyperthermia No Family History Social History Tobacco Use Smoking status: Never Smokeless tobacco: Never Vaping Use Vaping status: Never Used Substance Use Topics Alcohol use: No Drug use: No Prior to Admission medications as of 03/11/24 1002 Medication Sig Last Dose Taking DULoxetine (CYMBALTA) 30 mg capsule Take 60 mg by mouth once daily. Taking Yes cyclobenzaprine (FLEXERIL) 10 mg tablet Take 1 tablet by mouth at bedtime as needed for muscle spasm or pain. Taking Yes ATIVAN 0.5 mg Taking Yes Norethindrone, Contraceptive, (ORTHO MICRONOR) 0.35 mg tablet Take 1 tablet by mouth once daily. Taking Yes elderberry fruit (ELDERBERRY ORAL) Take by mouth. Taking Yes buPROPion (WELLBUTRIN) 75 mg tablet Take 100 mg by mouth once daily. Taking Yes amphetamine-dextroamphetamine (ADDERALL) 15 mg tablet Take 7 mg by mouth as needed. Taking Yes MULTIVITAMIN ORAL Take by mouth once daily. Taking Yes No medication comments found. ALLERGIES Allergen Reactions Latex Tomatoes Objective PHYSICAL EXAM: General: alert and oriented (x3), healthy appearance and morbidly obese. Pertinent negatives noted - not distressed. Skin: normal color, no rash or lesions. HEENT: EOM intact and pupils equal round. Pertinent negatives noted - no carotid bruit. Cardiovascular: regular rate and rhythm, normal S1 and S2, no rub, murmurs, or gallop. Respiratory: normal breath sounds, no wheezes or crackles. No chest wall deformity or tenderness. Abdomen: soft. Pertinent negatives noted - not tender. Extremities: no deformity, no edema or tenderness, no joint swelling or clubbing. Neurological: normal cognition and motor skills. Gait normal. No weakness or sensory deficit. PAIN ASSESSMENT: VITALS: BP 120/88 Pulse 110 Temp (Src) 97.5 (Temporal) Resp 14 Ht 5' 6 (1.68m) Wt 282 lb (127.9kg) SpO2 98% LMP 03/06/2024 BMI 45.54 kg/(m^2). Diagnostic tests reviewed for today's visit: Lab Value Units Date High Low HB 14.4 g/dL 11/26/2023 15.5 11.5 HCT 45.6 % 11/26/2023 46.0 36.0 WBC 12.18 k/uL 11/26/2023 11.00 3.70 PLT 284 k/uL 11/26/2023 400 150 NA 138 mmol/L 12/03/2023 144 136 K 4.9 mmol/L 12/03/2023 5.1 3.7 GLUC 89 mg/dL 12/03/2023 99 74 BUN 11 mg/dL 12/03/2023 21 7 CREAT 0.55 mg/dL 12/03/2023 0.96 0.58 PTSEC No results within date range. INR No results within date range. APTT No results within date range. ALT 18 U/L 12/03/2023 38 7 AST 22 U/L 12/03/2023 35 13 TBILI 0.4 mg/dL 12/03/2023 1.3 0.2 TSH 2.270 mIU/L 11/26/2023 4.200 0.270 Lab Value Units Date High Low HCGQT No results within date range. UHCG No results within date range. HCG, BODY* No results within date range. Lab Value Units Date High Low ABORHD No results within date range. ABSCREEN No results within date range. Hemoglobin A1C (%) Date Value 01/09/2023 5.0 04/17/2021 5.1 03/13/2018 5.2 HBA1C, [place] (%) Date Value 10/13/2009 5.3 No results found for this or any previous visit (from the past 8760 hour(s)). Recent Results (from the past 63583 hour(s)) ECHO Collection Time: 12/17/23 7:59 AM Impression CONCLUSIONS: - Exam indication: Palpitations - The left ventricle is normal in size. Left ventricular systolic function is normal. EF = 58 5% (2D biplane) Normal left ventricular diastolic function. - The right ventricle is normal in size. Right ventricular systolic function is normal. - There are no significant valvular abnormalities. - The patient has not had a prior CC echocardiographic exam for comparison. * * * Final * * * Instructions Given to Patient: Instructions located in the after visit summary. Patient given verbal and written preop instructions and voices comprehension and compliance. SIGNATURE: Dolly Haskins APRN.CNP PATIENT NAME: Lyndon Burroughs DATE: March 11, 2024 TIME: 10:02 AM PAGER/CONTACT #: [facility] 03-30-2024 History and physical note UPDATED HISTORY AND PHYSICAL EXAMINATION SERVICE DATE: 03/30/2024 SERVICE TIME: 8:07 Participation of a fellow, resident, medical student, or advanced practice provider student in performing the sensitive examination was discussed with the patient or authorized registered representative. The patient or authorized registered representative has agreed to proceed with the sensitive examination. (Sensitive examination includes inspection and/or palpation of the breasts, pelvis, prostate and anorectal regions) PHYSICAL EXAM MUST BE COMPLETED ON ADMISSION The History and Physical (completed in the past 30 days) has been reviewed and the patient has been examined. The contents accurately reflect the patient's condition with the following additions or revisions since the H&P was completed. Examination indicates no changes. This H&P can be found in the Electronic Medical Record . SIGNATURE: Seema Guillory MD PATIENT NAME: Lyndon Burroughs DATE: March 30, 2024 TIME: 9:07 AM Source Note - Dolly Haskins APRN.CHROME CLEANER - 03/11/2024 10:02 AM EST Images from the original note were not included. [facility] HISTORY AND PHYSICAL EXAMINATION SERVICE DATE: 03/11/2024 SERVICE TIME: 3:21 PM PRIMARY CARE PHYSICIAN: Errol Luu MD Assessment Patient has the following medical conditions which may affect karyn-operative course: Morbid obesity due to excess calories (HCC) Assessment: Body mass index is 45.52 kg/m . Autism spectrum disorder Assessment: high functioning Schizo-affective psychosis (HCC) Assessment: following psych, stable on rx per pt Obsessive compulsive disorder Assessment: stable on rx per pt Chronic fatigue syndrome with fibromyalgia Assessment: controlled on rx and as needed Chronic bilateral low back pain without sciatica Assessment: controlled on rx and as needed Vertigo Assessment: recently evaluated by ENT and neurology 01/06/2024 Merlene Mchugh PA-C Assessment and Plan: (R42) Vertigo (primary encounter diagnosis) (H93.13) Tinnitus, bilateral (R42) Dizziness (H93.8X3) Sensation of fullness in both ears ~audiogram demonstrates normal hearing and normal middle ear function ~discussed masking and distraction for tinnitus. Does not qualify for Tinnitus Management Clinic due to medicaid. Referral submitted for [facility] for tinnitus ~referral to Vestibular Rehab and Vestibular Test Battery - I will MyChart with results ~follow up with me as needed HPI: Lyndon is a 43 year old who reports vertigo and tinnitus. Tinnitus started 10-15 years ago. Hears it primarily when it's quiet in both ears. Bothers her quite a bit and struggles despite use of background noises. Denies hearing loss, otalgia, otorrhea, h/o ear surgeries, or tubes. Known cervicalgia. Known bruxism, unable to tolerate bite guard. Vertigo started about 3 years ago. Occurs for a few seconds after turning her head to the left or right or rolling over in bed. She tried Albert/Pereira Daroff Maneuvers at home which helped with her symptoms partially, but she did not try again due to intense symptoms while performing. Recalls 2 particularly bad episodes that lasted 30-40 minutes after waking. No associated hearing changes. Dizziness also started 3 years ago described as unsteadiness, lightheadedness, or feeling like she could pass out. This occurs when she stands and usually lasts for a brief period. Faye Activity Status Index: METS: Climb a flight of stairs or walk up a hill (5.50 METs) DASI Score: 5.5 Patient denies any chest pain or undue shortness of breath with the above physical activity. Clinical Frailty Scale: 3. Well, with treated comorbid disease STOP-Bang Score: BMI greater than 35 kg/m^2 Has a large neck Denies snoring loudly Denies feeling tired, fatigued, or sleepy during the daytime Has not been observed to stop breathing or choking/gasping during sleep Denies having high blood pressure Patient 50 years old or younger Non-male patient STOP-Bang Score: 2 [id number] Score: Age: <65 Sex: female CHF history: No Hypertension history: No Vascular disease history: No Diabetes history: No [id number] Score: ARISCAT Score: Age: <=50 Preoperative SpO2: >=96% Respiratory infection in the last month: No Preoperative anemia: No Surgical incision: peripheral Duration of surgery: <2 hrs Emergency procedure: No ARISCAT Score: 0 ANESTHESIA FINDINGS: Intubation History: No history of difficult intubation Significant Anesthesia Considerations: none Airway History: No history of difficult airway I - PHYSICAL EVALUATION AIRWAY Patient intubated: No. Tracheostomy tube not present Mallampati: II. TM distance: >3 FB. Neck ROM: full ROM without neurological symptoms. Mouth opening: adequate. Short neck: no. Thick neck: yes Herr present: no Lip Bite Test: III Microretrognathia/Micronagthia/Rec essed Chin: Yes DENTAL Dental findings: teeth intact. II - ANESTHESIA PLAN Anesthetic Plan: other Beta Kevin Monitoring Plan Post Procedure Analgesic Plan Prepared for Surgery: optimally prepared for surgery. CONSULTS: Patient does not require consults for optimization at this time Planned Anesthetic: other anesthesia choice The Following Tests/Procedures Have Been Initiated: Orders Placed This Encounter DULoxetine (CYMBALTA) 30 mg capsule Sig: Take 60 mg by mouth once daily. REASON FOR VISIT: Lyndon Burroughs is a 43 year old female who is scheduled for * No surgery found * at the request of Dr. Seema Guillory for consultation. My final recommendation will be communicated back to the requesting physician by way of shared medical record or letter. Subjective The patient has the following: COVID-19 Immunization Status Covid-19 Vaccine (Series Information) Completed 12/03/2023 Imm Admin: COVID-19 vaccine, age 12+ yr (PFIZER-BIONTECH COMIRNATY) 04/12/2021 Imm Admin: COVID-19 original vaccine, age 12+ yr, monovalent (PFIZER-BIONTECH - MUNGUIA TOP) 05/11/2020 Imm Admin: COVID-19 original vaccine, age 12+ yr, monovalent (PFIZER-BIONTECH - PURPLE TOP) Only the first 3 history entries have been loaded, but more history exists. CHIEF COMPLAINT: Pre-op exam HPI: Lyndon Burroughs is a 43 year old seen for PAC due to scheduled above procedure for colon cancer screening. 12/07/2023, Dr. Seema Guillory HPI: The patient is a 43 year old female referred for endoscopy. Lyndon manriquez presents for screening for colon cancer via colonoscopy The patient denies blood in stools, denies abdominal pain, and denies changes in bowel habits. Patient's mother had appendiceal cancer, diagnosed in her late 60s and has passed due to this. Her maternal grandmother had colon cancer She denies previous colonoscopy. She did have previous EGD at age 17. REVIEW OF SYSTEMS: General: No weight loss, malaise or fevers. Neurological: +vertigo Positive for: headaches (otc analgesics as needed). Negative for: cerebral palsy, BATCH AND FURNACE MANAGER tumor, dementia, impaired sensorium, multiple sclerosis, Parkinson's disease, peripheral neuropathy, seizures, TIA and strokes. Respiratory: No history of current cough or dyspnea, or pneumonia in the past 6 weeks. No history of respiratory/pulmonary symptoms or problems. Cardiovascular: Positive for: arrhythmia (+palpitations) Negative for: abdominal aortic aneurysm, AICD/PPM, angina, anticoagulation therapy, atrial fibrillation, CAD, chest pain, CHF, congenital heart defect, DVT/PE, hyperlipidemia, hypertension, recent OK, murmur/valvular heart disease, PTCA, PVD, open heart surgery and valve surgery. GI: See HPI. : No history of dysuria, frequency or incontinence, stones or chronic kidney disease. No difficulty urinating, nocturia > 1 time per night or hematuria. CONSULTING PRACTICE MANAGER: Negative for abnormal vaginal bleeding, abnormal vaginal discharge. Endocrine: No history of diabetes. Has not taken steroids within the past 30 days. No history of endocrinological symptoms or problems. Hematology: No history of bleeding or clotting disorder. Patient is not taking anti-coagulation or platelet medications. No history of hematological symptoms or problems. Oncology: No history of CA metastasis, chemo within 30 days, or radiotherapy within 90 days. No history of oncological symptoms or problems. Psych: Positive for: ADHD (rx as needed), anxiety (on rx) and depression (on rx). Negative for: Marijuana Use. Musculoskeletal: Positive for: back pain and joint pain. Skin: Negative for lesions, rash and itching. Implanted Devices: No implanted devices. PAST MEDICAL HISTORY Diagnosis Date ASCUS with positive high risk HPV cervical 05/2017 Mood disorder (HCC) counseling center Myopia, bilateral 12/23/2017 Obsessive-compulsive disorders Other specified anemias PMH - PAST MEDICAL HISTORY OF HIATAL HERNIA Psychosis (HCC) Dr. Rocha at [facility] center PAST SURGICAL HISTORY Procedure Laterality Date ENDOSCOPY PROC FAMILY HISTORY Problem Relation Age of Onset Psychiatry Mother DEPRESSION,SUICIDAL IDEATION Cancer Mother cancer in the appendix Leukemia Mother Hypertension Father Heart Father OK Psychiatry Father DEPRESSION, bipolar COPD Father smoked from age 12 other (CHF) Father Diabetes Sister Depression Sister other (HTN) Sister Depression Brother other (htn) Brother Diabetes Brother Bipolar disorder Brother Psychiatry Brother Schizoaffective Alcohol/Drug Maternal Grandmother ALCOHOLIC Alzheimer's Disease Maternal Grandmother Arthritis Maternal Grandmother Colon Cancer Maternal Grandmother Psychiatry Maternal Grandmother Alcohol/Drug Maternal Grandfather ALCOHOLIC Stroke Maternal Grandfather Alcohol/Drug Paternal Grandmother ALCOHOLIC Heart Paternal Grandmother CHF Alcohol/Drug Paternal Grandfather ALCOHOLIC Heart Paternal Grandfather OK Stroke Paternal Grandfather Alzheimer's Disease Paternal Grandfather Diabetes Maternal Uncle Colon Cancer Maternal Uncle Cancer Maternal Uncle pancreatic cancer Breast Cancer Paternal Aunt Diabetes Paternal Aunt PAUNT X 5 Diabetes Paternal Uncle Autism Other Anxiety disorder Other Tourette syndrome Other Malig Hyperthermia No Family History Social History Tobacco Use Smoking status: Never Smokeless tobacco: Never Vaping Use Vaping status: Never Used Substance Use Topics Alcohol use: No Drug use: No Prior to Admission medications as of 03/11/24 1002 Medication Sig Last Dose Taking DULoxetine (CYMBALTA) 30 mg capsule Take 60 mg by mouth once daily. Taking Yes cyclobenzaprine (FLEXERIL) 10 mg tablet Take 1 tablet by mouth at bedtime as needed for muscle spasm or pain. Taking Yes ATIVAN 0.5 mg Taking Yes Norethindrone, Contraceptive, (ORTHO MICRONOR) 0.35 mg tablet Take 1 tablet by mouth once daily. Taking Yes elderberry fruit (ELDERBERRY ORAL) Take by mouth. Taking Yes buPROPion (WELLBUTRIN) 75 mg tablet Take 100 mg by mouth once daily. Taking Yes amphetamine-dextroamphetamine (ADDERALL) 15 mg tablet Take 7 mg by mouth as needed. Taking Yes MULTIVITAMIN ORAL Take by mouth once daily. Taking Yes No medication comments found. ALLERGIES Allergen Reactions Latex Tomatoes Objective PHYSICAL EXAM: General: alert and oriented (x3), healthy appearance and morbidly obese. Pertinent negatives noted - not distressed. Skin: normal color, no rash or lesions. HEENT: EOM intact and pupils equal round. Pertinent negatives noted - no carotid bruit. Cardiovascular: regular rate and rhythm, normal S1 and S2, no rub, murmurs, or gallop. Respiratory: normal breath sounds, no wheezes or crackles. No chest wall deformity or tenderness. Abdomen: soft. Pertinent negatives noted - not tender. Extremities: no deformity, no edema or tenderness, no joint swelling or clubbing. Neurological: normal cognition and motor skills. Gait normal. No weakness or sensory deficit. PAIN ASSESSMENT: VITALS: BP 120/88 Pulse 110 Temp (Src) 97.5 (Temporal) Resp 14 Ht 5' 6 (1.68m) Wt 282 lb (127.9kg) SpO2 98% LMP 03/06/2024 BMI 45.54 kg/(m^2). Diagnostic tests reviewed for today's visit: Lab Value Units Date High Low HB 14.4 g/dL 11/26/2023 15.5 11.5 HCT 45.6 % 11/26/2023 46.0 36.0 WBC 12.18 k/uL 11/26/2023 11.00 3.70 PLT 284 k/uL 11/26/2023 400 150 NA 138 mmol/L 12/03/2023 144 136 K 4.9 mmol/L 12/03/2023 5.1 3.7 GLUC 89 mg/dL 12/03/2023 99 74 BUN 11 mg/dL 12/03/2023 21 7 CREAT 0.55 mg/dL 12/03/2023 0.96 0.58 PTSEC No results within date range. INR No results within date range. APTT No results within date range. ALT 18 U/L 12/03/2023 38 7 AST 22 U/L 12/03/2023 35 13 TBILI 0.4 mg/dL 12/03/2023 1.3 0.2 TSH 2.270 mIU/L 11/26/2023 4.200 0.270 Lab Value Units Date High Low HCGQT No results within date range. UHCG No results within date range. HCG, BODY* No results within date range. Lab Value Units Date High Low ABORHD No results within date range. ABSCREEN No results within date range. Hemoglobin A1C (%) Date Value 01/09/2023 5.0 04/17/2021 5.1 03/13/2018 5.2 HBA1C, Laura (%) Date Value 10/13/2009 5.3 No results found for this or any previous visit (from the past 8760 hour(s)). Recent Results (from the past 25718 hour(s)) ECHO Collection Time: 12/17/23 7:59 AM Impression CONCLUSIONS: - Exam indication: Palpitations - The left ventricle is normal in size. Left ventricular systolic function is normal. EF = 58 5% (2D biplane) Normal left ventricular diastolic function. - The right ventricle is normal in size. Right ventricular systolic function is normal. - There are no significant valvular abnormalities. - The patient has not had a prior CC echocardiographic exam for comparison. * * * Final * * * Instructions Given to Patient: Instructions located in the after visit summary. Patient given verbal and written preop instructions and voices comprehension and compliance. SIGNATURE: Dolly Haskins APRN.CNP PATIENT NAME: Lyndon Burroughs DATE: March 11, 2024 TIME: 10:02 AM PAGER/CONTACT #: documented in this encounter [facility] 03-21-2024 Telephone encounter Note Spoke with patient & sent my chart to clarify instrutcions. [facility] 03-21-2024 Miscellaneous Notes Spoke with patient & sent my chart to clarify instrutcions. Message routed to home care scheduler to assist with clarification of prep instructions. Thank you. documented in this encounter [facility] 03-21-2024 Telephone encounter Note Message routed to home care scheduler to assist with clarification of prep instructions. Thank you. [facility] 03-11-2024 Instructions Dolly Haskins APRN.CHROME CLEANER - 03/11/2024 10:06 AM EST Images from the original note were not included. [facility] PATIENT PREOPERATIVE INSTRUCTIONS Seema Guillory MD has scheduled you for your procedure at this surgery center: [facility]: [phone] -- [address] [place] [address]. Please read below carefully for your personalized instructions. Dietary Restrictions: - Follow bowel prep instructions: clear liquids need to be stopped 2 hours prior to schedule arrival at facility No red/purple coloring and no creamer/sugar Medications: Unless instructed differently below, stay on all of your medications until your surgery. If you start any new medications after today's visit, please contact your surgeon. Pre-Surgery Med Instructions Medication Instructions DULoxetine (CYMBALTA) 30 mg capsule Take the day of surgery with a small sip of water cyclobenzaprine (FLEXERIL) 10 mg tablet IF needed ATIVAN 0.5 mg IF needed Norethindrone, Contraceptive, (ORTHO MICRONOR) 0.35 mg tablet Take the day of surgery with a small sip of water elderberry fruit (ELDERBERRY ORAL) Stop 7 days before surgery buPROPion (WELLBUTRIN) 75 mg tablet Take the day of surgery with a small sip of water amphetamine-dextroamphetamine (ADDERALL) 15 mg tablet Do not take the day of surgery MULTIVITAMIN ORAL Stop 7 days before surgery If you start any new medications after today's visit, please contact the surgeon's office. If you are currently using a [id number] injectable or oral medication for diabetes or weight loss such as Dulaglutide (Trulicity), Exenatide (Byetta, Bydureon), Liraglutide (Victoza, Saxenda), Semaglutide (Ozempic, Wegovy, Rybelsus), or Tirzepatide (Mounjaro), the medicine should be stopped at least 7 days before surgery. These medicines can cause food to remain in your stomach for a very long time and increase the risks from surgery and anesthesia. Not stopping the medication for a long enough time may result in your surgery being rescheduled. Blood Thinning Medications: - Stop NSAIDS (Ibuprofen, Advil, Aleve, Motrin, Celebrex, Mobic, etc.) 7 days before surgery, as directed by your surgeon. - Stop Aspirin 7 days before surgery, as directed by your surgeon. - Stop ALL herbal and dietary supplements 7 days before surgery. - You may take Tylenol (Acetaminophen) or any of your pain medications that do not contain aspirin or NSAIDS as needed. Important Reminders: - Candy, mints, gum and tobacco products are NOT permitted the morning of surgery. - Hearing aids, dentures and glasses may be worn the morning of surgery. - NO jewelry, body piercings, makeup, hairpins or contacts are to be worn the day of surgery. If you develop symptoms such as a fever, cold, or flu, or have other changes to your health within TWO DAYS of scheduled surgery or the morning of surgery, please contact the surgery center above. Personal Belongings: -Please have photo ID and insurance cards. -If you do not have a copy of advance directives on file with us, please bring a copy with you on the day of surgery. - Leave ALL valuables and money at home or with family members. - Please bring high-quality footwear, such as sneakers, to the hospital for ambulating post-surgery. For Outpatient Procedures: - YOU MUST HAVE A RESPONSIBLE PUBLIC RELATIONS REPRESENTATIVE TAKE YOU HOME. A DICTATING MACHINE MECHANIC OR DOCUMENT REVIEW SPECIALIST CANNOT BE MADE A RESPONSIBLE PUBLIC RELATIONS REPRESENTATIVE. - We recommend that a responsible person stays with you overnight to take care of you. - You cannot stay in a hotel alone after outpatient surgery. You will not be permitted to have your surgery, if you do not have someone to take care of you. Arrival Time for Surgery: - The Surgery Center or hospital where you are having surgery will call the afternoon before surgery (or Thursday for Thursday surgery) with a scheduled arrival time. - If you have not heard by 4 pm, please contact the surgery center above. Please be aware that emergency situations arise, which may delay or change your surgical time. If this happens, we will notify you as soon as possible and regret any inconvenience. If you already have an Advance Directive, please fax a copy to [phone] or email to for it to be added to your chart. If you do not have an Advance Directive, you can find the appropriate form and more information at [email or web address]. We recommend that you complete the Advance Directive form found on the website and bring it with you the day of your surgery. It can be witnessed and scanned into your chart that day. Dolly Haskins APRN.SANDRA documented in this encounter [facility] 03-11-2024 History and physical note Images from the original note were not included. [facility] HISTORY AND PHYSICAL EXAMINATION SERVICE DATE: 03/11/2024 SERVICE TIME: 3:21 PM PRIMARY CARE PHYSICIAN: Errol Luu MD Assessment Patient has the following medical conditions which may affect karyn-operative course: Morbid obesity due to excess calories (HCC) Assessment: Body mass index is 45.52 kg/m . Autism spectrum disorder Assessment: high functioning Schizo-affective psychosis (HCC) Assessment: following psych, stable on rx per pt Obsessive compulsive disorder Assessment: stable on rx per pt Chronic fatigue syndrome with fibromyalgia Assessment: controlled on rx and as needed Chronic bilateral low back pain without sciatica Assessment: controlled on rx and as needed Vertigo Assessment: recently evaluated by ENT and neurology 01/06/2024 Merlene Mchugh PA-C Assessment and Plan: (R42) Vertigo (primary encounter diagnosis) (H93.13) Tinnitus, bilateral (R42) Dizziness (H93.8X3) Sensation of fullness in both ears ~audiogram demonstrates normal hearing and normal middle ear function ~discussed masking and distraction for tinnitus. Does not qualify for Tinnitus Management Clinic due to medicaid. Referral submitted for [facility]al [facility] Care for tinnitus ~referral to Vestibular Rehab and Vestibular Test Battery - I will MyChart with results ~follow up with me as needed HPI: Lyndon is a 43 year old who reports vertigo and tinnitus. Tinnitus started 10-15 years ago. Hears it primarily when it's quiet in both ears. Bothers her quite a bit and struggles despite use of background noises. Denies hearing loss, otalgia, otorrhea, h/o ear surgeries, or tubes. Known cervicalgia. Known bruxism, unable to tolerate bite guard. Vertigo started about 3 years ago. Occurs for a few seconds after turning her head to the left or right or rolling over in bed. She tried Albert/Pereira Daroff Maneuvers at home which helped with her symptoms partially, but she did not try again due to intense symptoms while performing. Recalls 2 particularly bad episodes that lasted 30-40 minutes after waking. No associated hearing changes. Dizziness also started 3 years ago described as unsteadiness, lightheadedness, or feeling like she could pass out. This occurs when she stands and usually lasts for a brief period. Faye Activity Status Index: METS: Climb a flight of stairs or walk up a hill (5.50 METs) DASI Score: 5.5 Patient denies any chest pain or undue shortness of breath with the above physical activity. Clinical Frailty Scale: 3. Well, with treated comorbid disease STOP-Bang Score: BMI greater than 35 kg/m^2 Has a large neck Denies snoring loudly Denies feeling tired, fatigued, or sleepy during the daytime Has not been observed to stop breathing or choking/gasping during sleep Denies having high blood pressure Patient 50 years old or younger Non-male patient STOP-Bang Score: 2 [id number] Score: Age: <65 Sex: female CHF history: No Hypertension history: No Vascular disease history: No Diabetes history: No [id number] Score: ARISCAT Score: Age: <=50 Preoperative SpO2: >=96% Respiratory infection in the last month: No Preoperative anemia: No Surgical incision: peripheral Duration of surgery: <2 hrs Emergency procedure: No ARISCAT Score: 0 ANESTHESIA FINDINGS: Intubation History: No history of difficult intubation Significant Anesthesia Considerations: none Airway History: No history of difficult airway I - PHYSICAL EVALUATION AIRWAY Patient intubated: No. Tracheostomy tube not present Mallampati: II. TM distance: >3 FB. Neck ROM: full ROM without neurological symptoms. Mouth opening: adequate. Short neck: no. Thick neck: yes Herr present: no Lip Bite Test: III Microretrognathia/Micronagthia/Rec essed Chin: Yes DENTAL Dental findings: teeth intact. II - ANESTHESIA PLAN Anesthetic Plan: other Beta Kevin Monitoring Plan Post Procedure Analgesic Plan Prepared for Surgery: optimally prepared for surgery. CONSULTS: Patient does not require consults for optimization at this time Planned Anesthetic: other anesthesia choice The Following Tests/Procedures Have Been Initiated: Orders Placed This Encounter DULoxetine (CYMBALTA) 30 mg capsule Sig: Take 60 mg by mouth once daily. REASON FOR VISIT: Lyndon Burroughs is a 43 year old female who is scheduled for * No surgery found * at the request of Dr. Seema Guillory for consultation. My final recommendation will be communicated back to the requesting physician by way of shared medical record or letter. Subjective The patient has the following: COVID-19 Immunization Status Covid-19 Vaccine (Series Information) Completed 12/03/2023 Imm Admin: COVID-19 vaccine, age 12+ yr (PFIZER-BIONTECH COMIRNATY) 04/12/2021 Imm Admin: COVID-19 original vaccine, age 12+ yr, monovalent (PFIZER-BIONTECH - MUNGUIA TOP) 05/11/2020 Imm Admin: COVID-19 original vaccine, age 12+ yr, monovalent (PFIZER-BIONTECH - PURPLE TOP) Only the first 3 history entries have been loaded, but more history exists. CHIEF COMPLAINT: Pre-op exam HPI: Lyndon Burroughs is a 43 year old seen for PAC due to scheduled above procedure for colon cancer screening. 12/07/2023, Dr. Seema Guillory HPI: The patient is a 43 year old female referred for endoscopy. Lyndon manriquez presents for screening for colon cancer via colonoscopy The patient denies blood in stools, denies abdominal pain, and denies changes in bowel habits. Patient's mother had appendiceal cancer, diagnosed in her late 60s and has passed due to this. Her maternal grandmother had colon cancer She denies previous colonoscopy. She did have previous EGD at age 17. REVIEW OF SYSTEMS: General: No weight loss, malaise or fevers. Neurological: +vertigo Positive for: headaches (otc analgesics as needed). Negative for: cerebral palsy, BATCH AND FURNACE MANAGER tumor, dementia, impaired sensorium, multiple sclerosis, Parkinson's disease, peripheral neuropathy, seizures, TIA and strokes. Respiratory: No history of current cough or dyspnea, or pneumonia in the past 6 weeks. No history of respiratory/pulmonary symptoms or problems. Cardiovascular: Positive for: arrhythmia (+palpitations) Negative for: abdominal aortic aneurysm, AICD/PPM, angina, anticoagulation therapy, atrial fibrillation, CAD, chest pain, CHF, congenital heart defect, DVT/PE, hyperlipidemia, hypertension, recent OK, murmur/valvular heart disease, PTCA, PVD, open heart surgery and valve surgery. GI: See HPI. : No history of dysuria, frequency or incontinence, stones or chronic kidney disease. No difficulty urinating, nocturia > 1 time per night or hematuria. CONSULTING PRACTICE MANAGER: Negative for abnormal vaginal bleeding, abnormal vaginal discharge. Endocrine: No history of diabetes. Has not taken steroids within the past 30 days. No history of endocrinological symptoms or problems. Hematology: No history of bleeding or clotting disorder. Patient is not taking anti-coagulation or platelet medications. No history of hematological symptoms or problems. Oncology: No history of CA metastasis, chemo within 30 days, or radiotherapy within 90 days. No history of oncological symptoms or problems. Psych: Positive for: ADHD (rx as needed), anxiety (on rx) and depression (on rx). Negative for: Marijuana Use. Musculoskeletal: Positive for: back pain and joint pain. Skin: Negative for lesions, rash and itching. Implanted Devices: No implanted devices. PAST MEDICAL HISTORY Diagnosis Date ASCUS with positive high risk HPV cervical 05/2017 Mood disorder (HCC) counseling center Myopia, bilateral 12/23/2017 Obsessive-compulsive disorders Other specified anemias PMH - PAST MEDICAL HISTORY OF HIATAL HERNIA Psychosis (HCC) Dr. Rocha at counseling center PAST SURGICAL HISTORY Procedure Laterality Date ENDOSCOPY PROC FAMILY HISTORY Problem Relation Age of Onset Psychiatry Mother DEPRESSION,SUICIDAL IDEATION Cancer Mother cancer in the appendix Leukemia Mother Hypertension Father Heart Father OK Psychiatry Father DEPRESSION, bipolar COPD Father smoked from age 12 other (CHF) Father Diabetes Sister Depression Sister other (HTN) Sister Depression Brother other (htn) Brother Diabetes Brother Bipolar disorder Brother Psychiatry Brother Schizoaffective Alcohol/Drug Maternal Grandmother ALCOHOLIC Alzheimer's Disease Maternal Grandmother Arthritis Maternal Grandmother Colon Cancer Maternal Grandmother Psychiatry Maternal Grandmother Alcohol/Drug Maternal Grandfather ALCOHOLIC Stroke Maternal Grandfather Alcohol/Drug Paternal Grandmother ALCOHOLIC Heart Paternal Grandmother CHF Alcohol/Drug Paternal Grandfather ALCOHOLIC Heart Paternal Grandfather OK Stroke Paternal Grandfather Alzheimer's Disease Paternal Grandfather Diabetes Maternal Uncle Colon Cancer Maternal Uncle Cancer Maternal Uncle pancreatic cancer Breast Cancer Paternal Aunt Diabetes Paternal Aunt PAUNT X 5 Diabetes Paternal Uncle Autism Other Anxiety disorder Other Tourette syndrome Other Malig Hyperthermia No Family History Social History Tobacco Use Smoking status: Never Smokeless tobacco: Never Vaping Use Vaping status: Never Used Substance Use Topics Alcohol use: No Drug use: No Prior to Admission medications as of 03/11/24 1002 Medication Sig Last Dose Taking DULoxetine (CYMBALTA) 30 mg capsule Take 60 mg by mouth once daily. Taking Yes cyclobenzaprine (FLEXERIL) 10 mg tablet Take 1 tablet by mouth at bedtime as needed for muscle spasm or pain. Taking Yes ATIVAN 0.5 mg Taking Yes Norethindrone, Contraceptive, (ORTHO MICRONOR) 0.35 mg tablet Take 1 tablet by mouth once daily. Taking Yes elderberry fruit (ELDERBERRY ORAL) Take by mouth. Taking Yes buPROPion (WELLBUTRIN) 75 mg tablet Take 100 mg by mouth once daily. Taking Yes amphetamine-dextroamphetamine (ADDERALL) 15 mg tablet Take 7 mg by mouth as needed. Taking Yes MULTIVITAMIN ORAL Take by mouth once daily. Taking Yes No medication comments found. ALLERGIES Allergen Reactions Latex Tomatoes Objective PHYSICAL EXAM: General: alert and oriented (x3), healthy appearance and morbidly obese. Pertinent negatives noted - not distressed. Skin: normal color, no rash or lesions. HEENT: EOM intact and pupils equal round. Pertinent negatives noted - no carotid bruit. Cardiovascular: regular rate and rhythm, normal S1 and S2, no rub, murmurs, or gallop. Respiratory: normal breath sounds, no wheezes or crackles. No chest wall deformity or tenderness. Abdomen: soft. Pertinent negatives noted - not tender. Extremities: no deformity, no edema or tenderness, no joint swelling or clubbing. Neurological: normal cognition and motor skills. Gait normal. No weakness or sensory deficit. PAIN ASSESSMENT: VITALS: BP 120/88 Pulse 110 Temp (Src) 97.5 (Temporal) Resp 14 Ht 5' 6 (1.68m) Wt 282 lb (127.9kg) SpO2 98% LMP 03/06/2024 BMI 45.54 kg/(m^2). Diagnostic tests reviewed for today's visit: Lab Value Units Date High Low HB 14.4 g/dL 11/26/2023 15.5 11.5 HCT 45.6 % 11/26/2023 46.0 36.0 WBC 12.18 k/uL 11/26/2023 11.00 3.70 PLT 284 k/uL 11/26/2023 400 150 NA 138 mmol/L 12/03/2023 144 136 K 4.9 mmol/L 12/03/2023 5.1 3.7 GLUC 89 mg/dL 12/03/2023 99 74 BUN 11 mg/dL 12/03/2023 21 7 CREAT 0.55 mg/dL 12/03/2023 0.96 0.58 PTSEC No results within date range. INR No results within date range. APTT No results within date range. ALT 18 U/L 12/03/2023 38 7 AST 22 U/L 12/03/2023 35 13 TBILI 0.4 mg/dL 12/03/2023 1.3 0.2 TSH 2.270 mIU/L 11/26/2023 4.200 0.270 Lab Value Units Date High Low HCGQT No results within date range. UHCG No results within date range. HCG, BODY* No results within date range. Lab Value Units Date High Low ABORHD No results within date range. ABSCREEN No results within date range. Hemoglobin A1C (%) Date Value 01/09/2023 5.0 04/17/2021 5.1 03/13/2018 5.2 HBA1C, Laura (%) Date Value 10/13/2009 5.3 No results found for this or any previous visit (from the past 8760 hour(s)). Recent Results (from the past 00936 hour(s)) ECHO Collection Time: 12/17/23 7:59 AM Impression CONCLUSIONS: - Exam indication: Palpitations - The left ventricle is normal in size. Left ventricular systolic function is normal. EF = 58 5% (2D biplane) Normal left ventricular diastolic function. - The right ventricle is normal in size. Right ventricular systolic function is normal. - There are no significant valvular abnormalities. - The patient has not had a prior CC echocardiographic exam for comparison. * * * Final * * * Instructions Given to Patient: Instructions located in the after visit summary. Patient given verbal and written preop instructions and voices comprehension and compliance. SIGNATURE: Dolly Haskins APRN.CNP PATIENT NAME: Lyndon Burroughs DATE: March 11, 2024 TIME: 10:02 AM PAGER/CONTACT #: [facility] 03-11-2024 History and physical note Images from the original note were not included. [facility] HISTORY AND PHYSICAL EXAMINATION SERVICE DATE: 03/11/2024 SERVICE TIME: 3:21 PM PRIMARY CARE PHYSICIAN: Errol Luu MD Assessment Patient has the following medical conditions which may affect karyn-operative course: Morbid obesity due to excess calories (HCC) Assessment: Body mass index is 45.52 kg/m . Autism spectrum disorder Assessment: high functioning Schizo-affective psychosis (HCC) Assessment: following psych, stable on rx per pt Obsessive compulsive disorder Assessment: stable on rx per pt Chronic fatigue syndrome with fibromyalgia Assessment: controlled on rx and as needed Chronic bilateral low back pain without sciatica Assessment: controlled on rx and as needed Vertigo Assessment: recently evaluated by ENT and neurology 01/06/2024 Merlene Mchugh PA-C Assessment and Plan: (R42) Vertigo (primary encounter diagnosis) (H93.13) Tinnitus, bilateral (R42) Dizziness (H93.8X3) Sensation of fullness in both ears ~audiogram demonstrates normal hearing and normal middle ear function ~discussed masking and distraction for tinnitus. Does not qualify for [facility] due to medicaid. Referral submitted for [facility] for tinnitus ~referral to Vestibular Rehab and Vestibular Test Battery - I will MyChart with results ~follow up with me as needed HPI: Lyndon is a 43 year old who reports vertigo and tinnitus. Tinnitus started 10-15 years ago. Hears it primarily when it's quiet in both ears. Bothers her quite a bit and struggles despite use of background noises. Denies hearing loss, otalgia, otorrhea, h/o ear surgeries, or tubes. Known cervicalgia. Known bruxism, unable to tolerate bite guard. Vertigo started about 3 years ago. Occurs for a few seconds after turning her head to the left or right or rolling over in bed. She tried Albert/Pereira Daroff Maneuvers at home which helped with her symptoms partially, but she did not try again due to intense symptoms while performing. Recalls 2 particularly bad episodes that lasted 30-40 minutes after waking. No associated hearing changes. Dizziness also started 3 years ago described as unsteadiness, lightheadedness, or feeling like she could pass out. This occurs when she stands and usually lasts for a brief period. Faye Activity Status Index: METS: Climb a flight of stairs or walk up a hill (5.50 METs) DASI Score: 5.5 Patient denies any chest pain or undue shortness of breath with the above physical activity. Clinical Frailty Scale: 3. Well, with treated comorbid disease STOP-Bang Score: BMI greater than 35 kg/m^2 Has a large neck Denies snoring loudly Denies feeling tired, fatigued, or sleepy during the daytime Has not been observed to stop breathing or choking/gasping during sleep Denies having high blood pressure Patient 50 years old or younger Non-male patient STOP-Bang Score: 2 [id number] Score: Age: <65 Sex: female CHF history: No Hypertension history: No Vascular disease history: No Diabetes history: No [id number] Score: ARISCAT Score: Age: <=50 Preoperative SpO2: >=96% Respiratory infection in the last month: No Preoperative anemia: No Surgical incision: peripheral Duration of surgery: <2 hrs Emergency procedure: No ARISCAT Score: 0 ANESTHESIA FINDINGS: Intubation History: No history of difficult intubation Significant Anesthesia Considerations: none Airway History: No history of difficult airway I - PHYSICAL EVALUATION AIRWAY Patient intubated: No. Tracheostomy tube not present Mallampati: II. TM distance: >3 FB. Neck ROM: full ROM without neurological symptoms. Mouth opening: adequate. Short neck: no. Thick neck: yes Herr present: no Lip Bite Test: III Microretrognathia/Micronagthia/Rec essed Chin: Yes DENTAL Dental findings: teeth intact. II - ANESTHESIA PLAN Anesthetic Plan: other Beta Kevin Monitoring Plan Post Procedure Analgesic Plan Prepared for Surgery: optimally prepared for surgery. CONSULTS: Patient does not require consults for optimization at this time Planned Anesthetic: other anesthesia choice The Following Tests/Procedures Have Been Initiated: Orders Placed This Encounter DULoxetine (CYMBALTA) 30 mg capsule Sig: Take 60 mg by mouth once daily. REASON FOR VISIT: Lyndon Burroughs is a 43 year old female who is scheduled for * No surgery found * at the request of Dr. Seema Guillory for consultation. My final recommendation will be communicated back to the requesting physician by way of shared medical record or letter. Subjective The patient has the following: COVID-19 Immunization Status Covid-19 Vaccine (Series Information) Completed 12/03/2023 Imm Admin: COVID-19 vaccine, age 12+ yr (PFIZER-BIONTECH COMIRNATY) 04/12/2021 Imm Admin: COVID-19 original vaccine, age 12+ yr, monovalent (PFIZER-BIONTECH - MUNGUIA TOP) 05/11/2020 Imm Admin: COVID-19 original vaccine, age 12+ yr, monovalent (PFIZER-BIONTECH - PURPLE TOP) Only the first 3 history entries have been loaded, but more history exists. CHIEF COMPLAINT: Pre-op exam HPI: Lyndon Burroughs is a 43 year old seen for PAC due to scheduled above procedure for colon cancer screening. 12/07/2023, Dr. Seema Guillory HPI: The patient is a 43 year old female referred for endoscopy. Lyndon manriquez presents for screening for colon cancer via colonoscopy The patient denies blood in stools, denies abdominal pain, and denies changes in bowel habits. Patient's mother had appendiceal cancer, diagnosed in her late 60s and has passed due to this. Her maternal grandmother had colon cancer She denies previous colonoscopy. She did have previous EGD at age 17. REVIEW OF SYSTEMS: General: No weight loss, malaise or fevers. Neurological: +vertigo Positive for: headaches (otc analgesics as needed). Negative for: cerebral palsy, BATCH AND FURNACE MANAGER tumor, dementia, impaired sensorium, multiple sclerosis, Parkinson's disease, peripheral neuropathy, seizures, TIA and strokes. Respiratory: No history of current cough or dyspnea, or pneumonia in the past 6 weeks. No history of respiratory/pulmonary symptoms or problems. Cardiovascular: Positive for: arrhythmia (+palpitations) Negative for: abdominal aortic aneurysm, AICD/PPM, angina, anticoagulation therapy, atrial fibrillation, CAD, chest pain, CHF, congenital heart defect, DVT/PE, hyperlipidemia, hypertension, recent OK, murmur/valvular heart disease, PTCA, PVD, open heart surgery and valve surgery. GI: See HPI. : No history of dysuria, frequency or incontinence, stones or chronic kidney disease. No difficulty urinating, nocturia > 1 time per night or hematuria. CONSULTING PRACTICE MANAGER: Negative for abnormal vaginal bleeding, abnormal vaginal discharge. Endocrine: No history of diabetes. Has not taken steroids within the past 30 days. No history of endocrinological symptoms or problems. Hematology: No history of bleeding or clotting disorder. Patient is not taking anti-coagulation or platelet medications. No history of hematological symptoms or problems. Oncology: No history of CA metastasis, chemo within 30 days, or radiotherapy within 90 days. No history of oncological symptoms or problems. Psych: Positive for: ADHD (rx as needed), anxiety (on rx) and depression (on rx). Negative for: Marijuana Use. Musculoskeletal: Positive for: back pain and joint pain. Skin: Negative for lesions, rash and itching. Implanted Devices: No implanted devices. PAST MEDICAL HISTORY Diagnosis Date ASCUS with positive high risk HPV cervical 05/2017 Mood disorder (HCC) counseling center Myopia, bilateral 12/23/2017 Obsessive-compulsive disorders Other specified anemias PMH - PAST MEDICAL HISTORY OF HIATAL HERNIA Psychosis (HCC) Dr. Rocha at [facility] center PAST SURGICAL HISTORY Procedure Laterality Date ENDOSCOPY PROC FAMILY HISTORY Problem Relation Age of Onset Psychiatry Mother DEPRESSION,SUICIDAL IDEATION Cancer Mother cancer in the appendix Leukemia Mother Hypertension Father Heart Father [place] Psychiatry Father DEPRESSION, bipolar COPD Father smoked from age 12 other (CHF) Father Diabetes Sister Depression Sister other (HTN) Sister Depression Brother other (htn) Brother Diabetes Brother Bipolar disorder Brother Psychiatry Brother Schizoaffective Alcohol/Drug Maternal Grandmother ALCOHOLIC Alzheimer's Disease Maternal Grandmother Arthritis Maternal Grandmother Colon Cancer Maternal Grandmother Psychiatry Maternal Grandmother Alcohol/Drug Maternal Grandfather ALCOHOLIC Stroke Maternal Grandfather Alcohol/Drug Paternal Grandmother ALCOHOLIC Heart Paternal Grandmother CHF Alcohol/Drug Paternal Grandfather ALCOHOLIC Heart Paternal Grandfather OK Stroke Paternal Grandfather Alzheimer's Disease Paternal Grandfather Diabetes Maternal Uncle Colon Cancer Maternal Uncle Cancer Maternal Uncle pancreatic cancer Breast Cancer Paternal Aunt Diabetes Paternal Aunt PAUNT X 5 Diabetes Paternal Uncle Autism Other Anxiety disorder Other Tourette syndrome Other Malig Hyperthermia No Family History Social History Tobacco Use Smoking status: Never Smokeless tobacco: Never Vaping Use Vaping status: Never Used Substance Use Topics Alcohol use: No Drug use: No Prior to Admission medications as of 03/11/24 1002 Medication Sig Last Dose Taking DULoxetine (CYMBALTA) 30 mg capsule Take 60 mg by mouth once daily. Taking Yes cyclobenzaprine (FLEXERIL) 10 mg tablet Take 1 tablet by mouth at bedtime as needed for muscle spasm or pain. Taking Yes ATIVAN 0.5 mg Taking Yes Norethindrone, Contraceptive, (ORTHO MICRONOR) 0.35 mg tablet Take 1 tablet by mouth once daily. Taking Yes elderberry fruit (ELDERBERRY ORAL) Take by mouth. Taking Yes buPROPion (WELLBUTRIN) 75 mg tablet Take 100 mg by mouth once daily. Taking Yes amphetamine-dextroamphetamine (ADDERALL) 15 mg tablet Take 7 mg by mouth as needed. Taking Yes MULTIVITAMIN ORAL Take by mouth once daily. Taking Yes No medication comments found. ALLERGIES Allergen Reactions Latex Tomatoes Objective PHYSICAL EXAM: General: alert and oriented (x3), healthy appearance and morbidly obese. Pertinent negatives noted - not distressed. Skin: normal color, no rash or lesions. HEENT: EOM intact and pupils equal round. Pertinent negatives noted - no carotid bruit. Cardiovascular: regular rate and rhythm, normal S1 and S2, no rub, murmurs, or gallop. Respiratory: normal breath sounds, no wheezes or crackles. No chest wall deformity or tenderness. Abdomen: soft. Pertinent negatives noted - not tender. Extremities: no deformity, no edema or tenderness, no joint swelling or clubbing. Neurological: normal cognition and motor skills. Gait normal. No weakness or sensory deficit. PAIN ASSESSMENT: VITALS: BP 120/88 Pulse 110 Temp (Src) 97.5 (Temporal) Resp 14 Ht 5' 6 (1.68m) Wt 282 lb (127.9kg) SpO2 98% LMP 03/06/2024 BMI 45.54 kg/(m^2). Diagnostic tests reviewed for today's visit: Lab Value Units Date High Low HB 14.4 g/dL 11/26/2023 15.5 11.5 HCT 45.6 % 11/26/2023 46.0 36.0 WBC 12.18 k/uL 11/26/2023 11.00 3.70 PLT 284 k/uL 11/26/2023 400 150 NA 138 mmol/L 12/03/2023 144 136 K 4.9 mmol/L 12/03/2023 5.1 3.7 GLUC 89 mg/dL 12/03/2023 99 74 BUN 11 mg/dL 12/03/2023 21 7 CREAT 0.55 mg/dL 12/03/2023 0.96 0.58 PTSEC No results within date range. INR No results within date range. APTT No results within date range. ALT 18 U/L 12/03/2023 38 7 AST 22 U/L 12/03/2023 35 13 TBILI 0.4 mg/dL 12/03/2023 1.3 0.2 TSH 2.270 mIU/L 11/26/2023 4.200 0.270 Lab Value Units Date High Low HCGQT No results within date range. UHCG No results within date range. HCG, BODY* No results within date range. Lab Value Units Date High Low ABORHD No results within date range. ABSCREEN No results within date range. Hemoglobin A1C (%) Date Value 01/09/2023 5.0 04/17/2021 5.1 03/13/2018 5.2 HBA1C, Laura (%) Date Value 10/13/2009 5.3 No results found for this or any previous visit (from the past 8760 hour(s)). Recent Results (from the past 91280 hour(s)) ECHO Collection Time: 12/17/23 7:59 AM Impression CONCLUSIONS: - Exam indication: Palpitations - The left ventricle is normal in size. Left ventricular systolic function is normal. EF = 58 5% (2D biplane) Normal left ventricular diastolic function. - The right ventricle is normal in size. Right ventricular systolic function is normal. - There are no significant valvular abnormalities. - The patient has not had a prior CC echocardiographic exam for comparison. * * * Final * * * Instructions Given to Patient: Instructions located in the after visit summary. Patient given verbal and written preop instructions and voices comprehension and compliance. SIGNATURE: Dolly Haskins APRN.CNP PATIENT NAME: Lyndon Burroughs DATE: March 11, 2024 TIME: 10:02 AM PAGER/CONTACT #: documented in this encounter [facility] 03-08-2024 Telephone encounter Note Patient apologizing for missing appointment as she has been sick and slept through her alarm. Inquiring it needs rescheduled or not since testing has been normal. Lynette Gonzalez RN, BSN [facility] Work Phone: 03-08-2024 Miscellaneous Notes Patient apologizing for missing appointment as she has been sick and slept through her alarm. Inquiring it needs rescheduled or not since testing has been normal. Lynette Gonzalez RN, BSN documented in this encounter [facility] 02-15-2024 Note HNO ID: [id number] Author: GERMAINE POTTER LSW Service: ? Author Type: Operations Leader Type: Progress Notes Filed: 02/15/2024 12:28 Note Text: Summary: [facility] on 02/15/2024 Endocrine Psychology Welcome Group Lyndon Burroughs 1980 [id number] Date of Service: February 15, 2024 Patient advised of group visit and informed of privacy restrictions with group appointment. Patient instructed to be in a quiet, private area. Provided information for general psychology both within and outside the [facility]. This is appropriate for patients who experience mental health symptoms such as Depression, Anxiety, OCD, Bipolar disorder, etc. Discussed Endocrine Psychology resources for individuals who experience Night Eating, Binge Eating, Emotional Eating, Body Image, and Support for long-term weight management. Current Endocrine Psych Treatment consists of Individual and Group appointments. Informed patient on Endocrine form worker services to assist with community resource management. Patient is cleared to schedule with Endocrine Psychology Services (individual appointments, group appointments, etc.) This appointment was conducted by: MIELNA Leon February 15, 2024 12:28 PM [facility] 02-15-2024 History of Present illness Narrative Summary: Janet Mccray on 02/15/2024 Endocrine Psychology [facility] Lyndon Burroughs 1980 [id number] Date of Service: February 15, 2024 Patient advised of group visit and informed of privacy restrictions with group appointment. Patient instructed to be in a quiet, private area. Provided information for general psychology both within and outside the [facility]. This is appropriate for patients who experience mental health symptoms such as Depression, Anxiety, OCD, Bipolar disorder, etc. Discussed Endocrine Psychology resources for individuals who experience Night Eating, Binge Eating, Emotional Eating, Body Image, and Support for long-term weight management. Current Endocrine Psych Treatment consists of Individual and Group appointments. Informed patient on Endocrine form worker services to assist with community resource management. Patient is cleared to schedule with Endocrine Psychology Services (individual appointments, group appointments, etc.) This appointment was conducted by: MILENA Leon February 15, 2024 12:28 PM documented in this encounter [facility] 02-05-2024 Note HNO ID: [id number] Author: ROSIE RATLIFF PA-C Service: ? Author Type: Physician Recreational Therapy Aide Type: Progress Notes Filed: 02/05/2024 09:39 Note Text: FOLLOW UP APPOINTMENT Chief Complaint:/Reason for Visit: Established patient; Scheduled follow up appointment for new or existing problem and/or post-surgical evaluation History of Present Illness: Lyndon Burroughs follows up today for her right shoulder. She is here for repeat injection. Continues to get moderate relief. ROS: Constitutional: patient denies any recent fever or significant change in weight Cardiovascular: patient denies any chest pain at rest Respiratory: patient denies any shortness of breath or cough Gastrointestinal: patient denies any current abdominal discomfort Integumentary: patient denies any recent skin changes Musculoskeletal: as noted in the HPI Neurologic: as noted in the HPI Endocrine: patient denies a current diagnosis of diabetes Hematologic/Lymphatic: patient denies any easily bleeding, any recent infection and denies any recent observable lymph node enlargement Psychologic: negative for any recent depression or anxiety issues PAST MEDICAL HISTORY Diagnosis Date ASCUS with positive high risk HPV cervical 05/2017 Mood disorder (HCC) counseling center Myopia, bilateral 12/23/2017 Obsessive-compulsive disorders Other specified anemias PMH - PAST MEDICAL HISTORY OF HIATAL HERNIA Psychosis ([facility]) Dr. Rocha at [facility] center Current Outpatient Medications: cyclobenzaprine (FLEXERIL) 10 mg tablet ATIVAN 0.5 mg paliperidone ER (INVEGA) 3 mg 24 hr tablet Norethindrone, Contraceptive, (ORTHO MICRONOR) 0.35 mg tablet elderberry fruit (ELDERBERRY ORAL) buPROPion (WELLBUTRIN) 75 mg tablet amphetamine-dextroamphetamine (ADDERALL) 15 mg tablet MULTIVITAMIN ORAL Problem List: reviewed and updated. Physical Exam: Constitutional: No acute distress, pleasant Resp: Non-labored breathing Vascular: No cyanosis Skin: No rashes noted Focused Musculoskeletal exam: General: Ambulates well; no other joint abnormalities noted. 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 Pulses: 2+ radial, ulnar; hands warm bilat, <2sec CR Compartments: soft and compressible Assessment: (M25.811) Impingement of right shoulder (primary encounter diagnosis) Plan/Medical Decision Making:The nature of the problem and all indicated treatment options available were discussed in detail with the patient. Test(s)/Imaging/Referral(s): None 2. Intervention: Continue conservative treatment and CSI 3. Follow-up: as needed All of Lyndon Burroughs questions were answered today. She expressed a clear understanding of our discussion and is in agreement with the outlined treatment plan Rosie Ratliff PA-C Large Joint Arthro/Inj: R subacromial bursa Informed Consent Consent Obtained: Verbal Waterfall Protocol A moment to CARE was completed. SIGN IN Sign in communication not applicable due to emergent procedure. Personnel directly involved with the procedure wore the appropriate PPE. Special Equipment: N/A Patient/Surrogate Stated/Verified: Patient name, Date of , Relevant allergies and Intended procedure TIME OUT Intended patient and procedure match the source document(s). Consent documented and matches the intended procedure. Relevant labs, photos, and/or imaging studies have been reviewed. Correct side/site marked and visible. Medications required for procedure verified. No fire risk assessment and interventions applicable. No implant(s) inserted. 02/05/2024 9:38 AM The procedure site was prepped in the usual sterile fashion. Site: R subacromial bursa Medications: 40 mg triamcinolone acetonide 40 mg/mL Anesthetics: 4 mL lidocaine (PF) 10 mg/mL (1 %) Outcome: Tolerated well, no immediate complications Post-injection instructions were reviewed with the patient and the patient voiced understanding of these instructions. SIGN OUT All instruments, equipment, possible retained foreign bodies accounted for. [facility] 02-05-2024 History of Present illness Narrative Associated Order(s): Large Joint Arthro/Inj: R subacromial bursa Post-Procedure Diagnose(s): Impingement of right shoulder FOLLOW UP APPOINTMENT Chief Complaint:/Reason for Visit: Established patient; Scheduled follow up appointment for new or existing problem and/or post-surgical evaluation History of Present Illness: Lyndon Burroughs follows up today for her right shoulder. She is here for repeat injection. Continues to get moderate relief. ROS: Constitutional: patient denies any recent fever or significant change in weight Cardiovascular: patient denies any chest pain at rest Respiratory: patient denies any shortness of breath or cough Gastrointestinal: patient denies any current abdominal discomfort Integumentary: patient denies any recent skin changes Musculoskeletal: as noted in the HPI Neurologic: as noted in the HPI Endocrine: patient denies a current diagnosis of diabetes Hematologic/Lymphatic: patient denies any easily bleeding, any recent infection and denies any recent observable lymph node enlargement Psychologic: negative for any recent depression or anxiety issues PAST MEDICAL HISTORY Diagnosis Date ASCUS with positive high risk HPV cervical 05/2017 Mood disorder (HCC) counseling center Myopia, bilateral 12/23/2017 Obsessive-compulsive disorders Other specified anemias PMH - PAST MEDICAL HISTORY OF HIATAL HERNIA Psychosis (HCC) Dr. Rocha at [facility] center Current Outpatient Medications: cyclobenzaprine (FLEXERIL) 10 mg tablet ATIVAN 0.5 mg paliperidone ER (INVEGA) 3 mg 24 hr tablet Norethindrone, Contraceptive, (ORTHO MICRONOR) 0.35 mg tablet elderberry fruit (ELDERBERRY ORAL) buPROPion (WELLBUTRIN) 75 mg tablet amphetamine-dextroamphetamine (ADDERALL) 15 mg tablet MULTIVITAMIN ORAL Problem List: reviewed and updated. Physical Exam: Constitutional: No acute distress, pleasant Resp: Non-labored breathing Vascular: No cyanosis Skin: No rashes noted Focused Musculoskeletal exam: General: Ambulates well; no other joint abnormalities noted. 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 Pulses: 2+ radial, ulnar; hands warm bilat, <2sec CR Compartments: soft and compressible Assessment: (M25.811) Impingement of right shoulder (primary encounter diagnosis) Plan/Medical Decision Making:The nature of the problem and all indicated treatment options available were discussed in detail with the patient. Test(s)/Imaging/Referral(s): None 2. Intervention: Continue conservative treatment and CSI 3. Follow-up: as needed All of Lyndon Antonio Burroughs questions were answered today. She expressed a clear understanding of our discussion and is in agreement with the outlined treatment plan Rosie Ratliff PA-C Large Joint Arthro/Inj: R subacromial bursa Informed Consent Consent Obtained: Verbal Waterfall Protocol A moment to CARE was completed. SIGN IN Sign in communication not applicable due to emergent procedure. Personnel directly involved with the procedure wore the appropriate PPE. Special Equipment: N/A Patient/Surrogate Stated/Verified: Patient name, Date of , Relevant allergies and Intended procedure TIME OUT Intended patient and procedure match the source document(s). Consent documented and matches the intended procedure. Relevant labs, photos, and/or imaging studies have been reviewed. Correct side/site marked and visible. Medications required for procedure verified. No fire risk assessment and interventions applicable. No implant(s) inserted. 02/05/2024 9:38 AM The procedure site was prepped in the usual sterile fashion. Site: R subacromial bursa Medications: 40 mg triamcinolone acetonide 40 mg/mL Anesthetics: 4 mL lidocaine (PF) 10 mg/mL (1 %) Outcome: Tolerated well, no immediate complications Post-injection instructions were reviewed with the patient and the patient voiced understanding of these instructions. SIGN OUT All instruments, equipment, possible retained foreign bodies accounted for. documented in this encounter [facility] 02-01-2024 Miscellaneous Notes Patient returned call and scheduled an appointment on 02/29/24. I called and left a message for the patient to contact the office to get scheduled. Please reach out to patient to schedule with Desirae to discuss her knee. She will need x-rays prior. Thanks! Sounds like she is already having the shoulder injected 02/04, that provider does not inject knees, see other mychart message. I am happy to see her back to talk about repeat knee injections, she can schedule apt, will need updated xrays. documented in this encounter [facility] 02-01-2024 Telephone encounter Note Patient returned call and scheduled an appointment on 02/29/24. [facility] 01-28-2024 Telephone encounter Note I called and left a message for the patient to contact the office to get scheduled. [facility] 01-27-2024 Telephone encounter Note Please reach out to patient to schedule with Desirae to discuss her knee. She will need x-rays prior. Thanks! [facility] 01-27-2024 Note Addended by: MARIO TOTH on: 01/27/2024 10:07 AM Modules accepted: Orders [facility] 01-27-2024 Miscellaneous Notes Addended by: MARIO TOTH on: 01/27/2024 10:07 AM Modules accepted: Orders documented in this encounter [facility] 01-27-2024 Telephone encounter Note Sounds like she is already having the shoulder injected 02/04, that provider does not inject knees, see other mychart message. I am happy to see her back to talk about repeat knee injections, she can schedule apt, will need updated xrays. [facility] Work Phone: 01-27-2024 Note HNO ID: [id number] Author: MARIO TOTH, Therapist Service: ? Author Type: Therapist Type: Progress Notes Filed: 01/27/2024 09:54 Note Text: THE [facility] Center for Comprehensive Pain Recovery Psychological Evaluation January 27, 2024 Lyndon Burroughs [facility]#: [id number] I have communicated my name and active licensure. The patient's identity and physical location were verified at the time of this visit. Either the patient or their legal registered representative has been informed of the risks and benefits of -- and alternatives to -- treatment through virtual visit and consents to proceed with the session remotely. The patient e-signed the Informed Consent for Psychological Evaluation AND Care Form, and the [facility] health care insurance benefits, fees for service, emergency procedures, and the limits of confidentiality that may pertain with any given case were discussed with the patient. The patient was given a copy of the consent form on [employer]. The patient consented to a virtual visit and their location was confirmed. 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 Her most recent occupation was self-employed. 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 She was referred by Ciera King DO for psychological evaluation in the context of chronic pain. This consultation was shared with the referral source via the [facility] electronic medical record. She believes the reason for referral is I don't really know. Limits to confidentiality were discussed and agreed upon. Informed consent was provided verbally. Patient was informed that this evaluation is for consultation and not to be used for legal or forensic purposes. The goal of the following assessment is to identify the psychological, behavioral, cognitive, and social factors important to or directly affecting the patient?s physiological functioning, health and well-being, as it relates to his/her pain condition. Recommendations will be provided to improve the patient?s health and well-being via cognitive, behavioral, social and/or psychophysiological procedures designed to ameliorate pain related problems. Chief complaints: Fibromyalgia and arthritis Current Pain and Related Mood Symptoms: Lower back pain Between her shoulder blades Arthritic pain affecting shoulders, knees and lower back She clenches her jaw, more on her right jaw Tension headaches with nausea Most bothersome/worse symptoms: Lower back pain Patient-Entered Data: Pain Recovery Scores 01/20/2024 2:58 PM 10/20/2023 11:34 PM LBP over last 6 months - - Ongoing back pain problem - - START back screen total score - - START back screen distress score - - START back screen risk score - - Oswestry disability index score - - PCS rumination subscore 8 11 PCS magnification subscore 4 5 PCS helplessness subscore 10 12 PCS total score 22 28 01/20/2024 11/01/2023 10/20/2023 PHQ-9 Score 21 21 16 13 Multiple values from one day are sorted in reverse-chronological order 10/20/2023 10/21/2022 10/16/2022 CAROLINE - 7 SCORES Score 13 19 19 19 19 Multiple values from one day are sorted in reverse-chronological order 01/20/2024 10/20/2023 07/14/2023 PROMIS Global Health - (T-Scores - the mean of general population = 50. Five points is a clinically meaningful difference.) Physical T-Score 26.7 26.7 34.9 37.4 Mental T-Score 31.3 31.3 33.8 36.3 Multiple values from one day are sorted in reverse-chronological order No data to display History of Pain Syndrome: The following history is from the patient's report and a review of the EMR independently confirmed with the patient in this visit. Ciera King DO, 10/22/23: Chief complaint: Fibromyalgia. SUBJECTIVE: Patient states she has been in full body pain since puberty. Patient states she feels it the worse in her upper and low back, shooting sharp pain in her arms and legs, and tension headaches. Patient states at times when she picks thing up like her cat and stands she gets short bursts of shooting pain in her arms or legs. Patients states when simple things like her cats walking across her and hugging will cause her pain. When she exerts herself she feels like it will take two days to recover. Patient states she has tried numerous medications over the course of three decades including flexeril, tramadol, trazodone, ativan, tylenol, NSAIDs, and many OTC medications. States she has not been prescribed gabapentin, lyrica, Cymbalta, or amitriptyline. Current Medications: No outpatient medications have been marked as taking for the 01/27/24 encounter ([facility]) with Mario Toth, Therapist. Current Outpatient Medications Medication Si (more content not included)... [facility] 01-27-2024 History of Present illness Narrative Images from the original note were not included. THE [facility] for Comprehensive Pain Recovery Psychological Evaluation January 27, 2024 Lyndon Burroughs [facility]#: [id number] I have communicated my name and active licensure. The patient's identity and physical location were verified at the time of this visit. Either the patient or their legal registered representative has been informed of the risks and benefits of -- and alternatives to -- treatment through virtual visit and consents to proceed with the session remotely. The patient e-signed the Informed Consent for Psychological Evaluation & Care Form, and the [facility] care insurance benefits, fees for service, emergency procedures, and the limits of confidentiality that may pertain with any given case were discussed with the patient. The patient was given a copy of the consent form on [employer]. The patient consented to a virtual visit and their location was confirmed. Patient location: [place], [place] CPT Code: [id number] Virtual Psych Diagnotic Eval Appointment Start: 9 AM This 43 year old single part-time self-employed ([employer]) female lives with her roommate, her 17 year old son, and her 5 cats in [place], [place]. Her most recent occupation was self-employed. 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 She was referred by Ciera King DO for psychological evaluation in the context of chronic pain. This consultation was shared with the referral source via the [facility] electronic medical record. She believes the reason for referral is I don't really know. Limits to confidentiality were discussed and agreed upon. Informed consent was provided verbally. Patient was informed that this evaluation is for consultation and not to be used for legal or forensic purposes. The goal of the following assessment is to identify the psychological, behavioral, cognitive, and social factors important to or directly affecting the patient s physiological functioning, health and well-being, as it relates to his/her pain condition. Recommendations will be provided to improve the patient s health and well-being via cognitive, behavioral, social and/or psychophysiological procedures designed to ameliorate pain related problems. Chief complaints: Fibromyalgia and arthritis Current Pain and Related Mood Symptoms: Lower back pain Between her shoulder blades Arthritic pain affecting shoulders, knees and lower back She clenches her jaw, more on her right jaw Tension headaches with nausea Most bothersome/worse symptoms: Lower back pain Patient-Entered Data: Pain Recovery Scores 01/20/2024 2:58 PM 10/20/2023 11:34 PM LBP over last 6 months - - Ongoing back pain problem - - START back screen total score - - START back screen distress score - - START back screen risk score - - Oswestry disability index score - - PCS rumination subscore 8 11 PCS magnification subscore 4 5 PCS helplessness subscore 10 12 PCS total score 22 28 01/20/2024 11/01/2023 10/20/2023 PHQ-9 Score 21 21 16 13 Multiple values from one day are sorted in reverse-chronological order 10/20/2023 10/21/2022 10/16/2022 CAROLINE - 7 SCORES Score 13 19 19 19 19 Multiple values from one day are sorted in reverse-chronological order 01/20/2024 10/20/2023 07/14/2023 PROMIS Global Health - (T-Scores - the mean of general population = 50. Five points is a clinically meaningful difference.) Physical T-Score 26.7 26.7 34.9 37.4 Mental T-Score 31.3 31.3 33.8 36.3 Multiple values from one day are sorted in reverse-chronological order No data to display History of Pain Syndrome: The following history is from the patient's report and a review of the EMR independently confirmed with the patient in this visit. Ciera King DO, 10/22/23: Chief complaint: Fibromyalgia. SUBJECTIVE: Patient states she has been in full body pain since puberty. Patient states she feels it the worse in her upper and low back, shooting sharp pain in her arms and legs, and tension headaches. Patient states at times when she picks thing up like her cat and stands she gets short bursts of shooting pain in her arms or legs. Patients states when simple things like her cats walking across her and hugging will cause her pain. When she exerts herself she feels like it will take two days to recover. Patient states she has tried numerous medications over the course of three decades including flexeril, tramadol, trazodone, ativan, tylenol, NSAIDs, and many OTC medications. States she has not been prescribed gabapentin, lyrica, Cymbalta, or amitriptyline. Current Medications: No outpatient medications have been marked as taking for the 01/27/24 encounter ([facility]) with Mario Toth, Therapist. Current Outpatient Medications Medication Sig Dispense Refill ATIVAN 0.5 mg paliperidone ER (INVEGA) 3 mg 24 hr tablet Norethindrone, Contraceptive, (ORTHO MICRONOR) 0.35 mg tablet Take 1 tablet by mouth once daily. 84 tablet 0 elderberry fruit (ELDERBERRY ORAL) Take by mouth. buPROPion (WELLBUTRIN) 75 mg tablet Take 75 mg by mouth once daily. amphetamine-dextroamphetamine (ADDERALL) 15 mg tablet Take 15 mg by mouth two times a day. MULTIVITAMIN ORAL Take by mouth once daily. No current facility-administered medications for this visit. Functional Limitations: The patient has been unable to work full-time since 2004. She averages 3,000 steps daily. Time spent reclining is 21 hours/day (includes time in bed, recliner, sofa, ottoman, etc.). She had been walking a mile a day pre-pandemic. Her sleep is typically disrupted; she averages 6.5 hours of sleep. She has poor short term memory; struggles to find words; loses her train of thought easily. I write everything on my phone in this rays[place]wn; if it's not on my list it doesn't exist. She changes positions multiple times throughout the day to deal with her pain. Stairs are difficult, particularly carrying things on stairs. She went to the [employer] recently and after walking around I couldn't do anything for the next three days. She can't walk the grocery store much of the time (occasionally she can). She can't plan ahead with social activities because she doesn't know how her pain will be. She uses a very lightweight vacuum and can wash one room a day. She can't stand to wash a sink full of dishes. Taking a shower is difficult. Emotional Symptoms On the Patient Health Questionnaire (PHQ-9), patient scored 21 on depression, suggesting Severe (20-27) level of depression. Risk Assessment Suicide: low Homicide: low Deliberate Self-Harm: low Aggression: low SUICIDE RISK ASSESSMENT APPLICABLE: No EMOTIONAL SYMPTOMS include crying spells, frustration, irritability, and anger. Depression: Depressed / sad mood Sleep disturbance Anhedonia Guilt Decreased energy Decreased concentration Jose: Denies any history of hypomanic or manic episodes. She reports having jose in her 20's. Psychosis: Hallucinations: auditory; she reports having visual hallucinations when she was young but not now. Generalized Anxiety Disorder: Difficulty controlling worry Restless / keyed up Fatigued Irritability Phobias: no irrational fears Panic: Denies any symptoms of panic. She knows how to stop it before it gets that bad. Obsessions: germs were an issue, but since I've had a kid he's helped me with that Compulsions: checking, counting, and a lot of superstitious from my childhood; Post-Traumatic Stress Disorder: Denies any PTSD symptoms Disordered Eating: The patient denied a history of an eating disorder. Nutritional Screening: Did the patient have any unintentional weight loss or gain of greater than 10 pounds in the last 3 months? No Does the patient have a decrease in food intake and/or appetite? No Does the patient have any eating habits or behaviors that may be indicators of an eating disorder? Yes, Restricting eating Memory: Poor, Short term, Not as good as it used to be Psychomotor activity: psychomotor activity was WNL. Suicide: None Self mutilation: Cutting, Upper arms; she reports having a lot of promiscuous sex in her 20's. Coping: Current non-medical stress include financial stress; relationship stress with her roommate; housing stress; helping her autistic son apply for colleges/being a parent Coping efforts/strategies include lay down in the dark and listen to music; metal scrambles my brain and makes me feel less pain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 Verifications and Determination of Site- and Trimester-Specific Reference Intervals for Thyroid Function tests in . Thyroid, 2019:29:3:412-420. Jasen Summers, et al. 2017 Guidelines of the [place] Thyroid Association for the Diagnosis and Management of Thyroid Disease during and the . Thyroid, 2017:27:3:315-389. Free T4 Date Value Ref Range Status 11/26/2023 1.1 0.9 - 1.7 ng/dL Final ] Computed FIB-4 Calculation unavailable. One or more values for this score either were not found within the given timeframe or did not fit some other criterion. (E66.813, E66.01, Z68.41) Class 3 severe obesity due to excess calories without serious comorbidity with body mass index (BMI) of 40.0 to 44.9 in adult (HCC) - Patient comes today for treatment of overweight/obesity and its comorbidities. Patient has a BMI of 43.98 that is consistent with OBESITY CLASS 3. - Patient tried different weight loss modalities in the past including self-directed dieting, exercise, phentermine in the past, currently taking wellbutrin and adderall. - Pertinent co-morbidities of obesity include depression, anxiety, elevated BP readings without a formal diagnosis of HTN. - Patient's health and quality of life are compromised due to current weight and patient is motivated for weight loss. Our goal is to treat obesity to decrease long-term medical complications, comorbidities and improve lifestyle. PLAN: - Reviewed principles of energy metabolism, caloric intake and expenditure - Goals: -- 5-10% weight loss over 6 months is reasonable -- At least 6-month commitment to losing weight - Diet: risk factors for overweight/obesity include: irregular eating pattern, eating out frequently (>1 x per week), processed foods, low fiber diet, and emotional/stress eating -- Will refer to endo dietitian to discuss nutrition and identify the best approach and the individualized nutritional plan--low carb mediterranean -- Portion control -- No skipping meals--helps to avoid severe hunger, which can contribute to larger portions, overeating, less healthy dietary choices, etc. - Pharmacotherapy: -- I have reviewed with the patient the possibility of using weight loss medications and the various options available. -- Discussed that phentermine is contraindicated while on adderall, topiramate contraindicated due to ongoing depression that is suboptimally controlled. She is a good candidate for GLP-1RA/GIP-Julio Cesar but recommended to improve depression first. -- Exercise: -- Discussed basic exercise recommendations, the role of exercise on weight loss and maintenance. Discussed the combination of aerobic and resistance exercise. -- Most patients benefit from a personalized exercise program. Will refer to endocrine rough planer tender -- Recommend gradual increase in exercise. Goal is 150 minutes moderate-intensity exercise per week + strength training/resistance exercise 2 days per week. -- Sleep: -- Discussed the importance of sleep hygiene -- Recommend 7-8 hours sleep per night -- Behavioral: -- Will refer to endocrine psychologist -- Discussed the effect of stress and its relationship with weight gain. Stress management is very important. -- Self monitoring: suggest home weigh-ins at least 1x/week, food journals / trackers (Food log, My Fitness Pal), activity journals / trackers (Surfly watch, Fit Bit, Audionamix vivofit, Striiv). -- Elevated BP: discussed about DASH diet in detail. If BP does not improve, consider medications. I will see her back in a 4 month(s). DIAGNOSIS: Encounter Diagnosis ICD-10-CM 1. Class 3 severe obesity due to excess calories without serious comorbidity with body mass index (BMI) of 40.0 to 44.9 in adult ([facility]) E66.813 E66.01 Z68.41 Shakeel Solano MD [facility] [place] [facility] [phone] documented in this encounter [facility] 01-06-2024 Note HNO ID: [id number] Author: MERLENE MCHUGH PA-C Service: ? Author Type: Physician Recreational Therapy Aide Type: Progress Notes Filed: 01/06/2024 13:25 Note Text: CC: Lyndon Burroughs is 43 year old female who is seen at the request of Igor Blair for evaluation of vertigo. My findings and recommendations will be communicated to the referring provider via the shared electronic medical record. Assessment and Plan: (R42) Vertigo (primary encounter diagnosis) (H93.13) Tinnitus, bilateral (R42) Dizziness (H93.8X3) Sensation of fullness in both ears ~audiogram demonstrates normal hearing and normal middle ear function ~discussed masking and distraction for tinnitus. Does not qualify for [facility] due to medicaid. Referral submitted for Behavioral Health Care for tinnitus ~referral to Vestibular Rehab and Vestibular Test Battery - I will MyChart with results ~follow up with me as needed HPI: Lyndon is a 43 year old who reports vertigo and tinnitus. Tinnitus started 10-15 years ago. Hears it primarily when it's quiet in both ears. Bothers her quite a bit and struggles despite use of background noises. Denies hearing loss, otalgia, otorrhea, h/o ear surgeries, or tubes. Known cervicalgia. Known bruxism, unable to tolerate bite guard. Vertigo started about 3 years ago. Occurs for a few seconds after turning her head to the left or right or rolling over in bed. She tried Albert/Pereira Daroff Maneuvers at home which helped with her symptoms partially, but she did not try again due to intense symptoms while performing. Recalls 2 particularly bad episodes that lasted 30-40 minutes after waking. No associated hearing changes. Dizziness also started 3 years ago described as unsteadiness, lightheadedness, or feeling like she could pass out. This occurs when she stands and usually lasts for a brief period. ALLERGIES Allergen Reactions Latex Tomatoes Current Outpatient Medications Medication Sig ATIVAN 0.5 mg paliperidone ER (INVEGA) 3 mg 24 hr tablet Norethindrone, Contraceptive, (ORTHO MICRONOR) 0.35 mg tablet Take 1 tablet by mouth once daily. elderberry fruit (ELDERBERRY ORAL) Take by mouth. buPROPion (WELLBUTRIN) 75 mg tablet Take 75 mg by mouth once daily. amphetamine-dextroamphetamine (ADDERALL) 15 mg tablet Take 15 mg by mouth two times a day. MULTIVITAMIN ORAL Take by mouth once daily. No current facility-administered medications for this visit. PAST MEDICAL HISTORY Diagnosis Date ASCUS with positive high risk HPV cervical 05/2017 Mood disorder (HCC) counseling center Myopia, bilateral 12/23/2017 Obsessive-compulsive disorders Other specified anemias PMH - PAST MEDICAL HISTORY OF HIATAL HERNIA Psychosis (HCC) Dr. Rocha at counseling center PAST SURGICAL HISTORY Procedure Laterality Date ENDOSCOPY PROC Social History: Social History Tobacco Use Smoking status: Never Smokeless tobacco: Never Vaping Use Vaping status: Never Used Substance Use Topics Alcohol use: No Drug use: No FAMILY HISTORY Problem Relation Age of Onset Psychiatry Mother DEPRESSION,SUICIDAL IDEATION Cancer Mother cancer in the appendix Leukemia Mother Hypertension Father Heart Father OK Psychiatry Father DEPRESSION, bipolar COPD Father smoked from age 12 other (CHF) Father Diabetes Sister Depression Sister other (HTN) Sister Depression Brother other (htn) Brother Diabetes Brother Bipolar disorder Brother Psychiatry Brother Schizoaffective Alcohol/Drug Maternal Grandmother ALCOHOLIC Alzheimer's Disease Maternal Grandmother Arthritis Maternal Grandmother Colon Cancer Maternal Grandmother Psychiatry Maternal Grandmother Alcohol/Drug Maternal Grandfather ALCOHOLIC Stroke Maternal Grandfather Alcohol/Drug Paternal Grandmother ALCOHOLIC Heart Paternal Grandmother CHF Alcohol/Drug Paternal Grandfather ALCOHOLIC Heart Paternal Grandfather OK Stroke Paternal Grandfather Alzheimer's Disease Paternal Grandfather Diabetes Maternal Uncle Colon Cancer Maternal Uncle Cancer Maternal Uncle pancreatic cancer Breast Cancer Paternal Aunt Diabetes Paternal Aunt PAUNT X 5 Diabetes Paternal Uncle Autism Other Anxiety disorder Other Tourette syndrome Other Review Of Systems GENERAL: No weight loss, malaise or fevers. HEENT: Negative for frequent or significant headaches, No changes in hearing or vision, Ears Positive for tinnitus, vertigo/dizziness NECK: +cervicalgia I have confirmed and edited as necessary the ROS obtained by others. Merlene Mchugh PA-C PHYSICAL EXAM: LMP 01/01/2024 (Exact Date) No weight on file for this encounter. General appearance: Well appearing, alert, in no acute distress, well-hydrated, well nourished. Cranial Nerves: III-XII: grossly intact Skin: Skin color, texture, turgor normal, no suspicious rashes or lesions Head: normocephalic, no masses, les (more content not included)... [facility] 01-06-2024 History of Present illness Narrative CC: Lyndon Burroughs is 43 year old female who is seen at the request of Igor Blair for evaluation of vertigo. My findings and recommendations will be communicated to the referring provider via the shared electronic medical record. Assessment and Plan: (R42) Vertigo (primary encounter diagnosis) (H93.13) Tinnitus, bilateral (R42) Dizziness (H93.8X3) Sensation of fullness in both ears ~audiogram demonstrates normal hearing and normal middle ear function ~discussed masking and distraction for tinnitus. Does not qualify for Tinnitus Management Clinic due to medicaid. Referral submitted for Behavioral Health Care for tinnitus ~referral to Vestibular Rehab and Vestibular Test Battery - I will MyChart with results ~follow up with me as needed HPI: Lyndon is a 43 year old who reports vertigo and tinnitus. Tinnitus started 10-15 years ago. Hears it primarily when it's quiet in both ears. Bothers her quite a bit and struggles despite use of background noises. Denies hearing loss, otalgia, otorrhea, h/o ear surgeries, or tubes. Known cervicalgia. Known bruxism, unable to tolerate bite guard. Vertigo started about 3 years ago. Occurs for a few seconds after turning her head to the left or right or rolling over in bed. She tried Albert/Pereira Daroff Maneuvers at home which helped with her symptoms partially, but she did not try again due to intense symptoms while performing. Recalls 2 particularly bad episodes that lasted 30-40 minutes after waking. No associated hearing changes. Dizziness also started 3 years ago described as unsteadiness, lightheadedness, or feeling like she could pass out. This occurs when she stands and usually lasts for a brief period. ALLERGIES Allergen Reactions Latex Tomatoes Current Outpatient Medications Medication Sig ATIVAN 0.5 mg paliperidone ER (INVEGA) 3 mg 24 hr tablet Norethindrone, Contraceptive, (ORTHO MICRONOR) 0.35 mg tablet Take 1 tablet by mouth once daily. elderberry fruit (ELDERBERRY ORAL) Take by mouth. buPROPion (WELLBUTRIN) 75 mg tablet Take 75 mg by mouth once daily. amphetamine-dextroamphetamine (ADDERALL) 15 mg tablet Take 15 mg by mouth two times a day. MULTIVITAMIN ORAL Take by mouth once daily. No current facility-administered medications for this visit. PAST MEDICAL HISTORY Diagnosis Date ASCUS with positive high risk HPV cervical 05/2017 Mood disorder (HCC) counseling center Myopia, bilateral 12/23/2017 Obsessive-compulsive disorders Other specified anemias PMH - PAST MEDICAL HISTORY OF HIATAL HERNIA Psychosis (HCC) Dr. Rocha at counseling center PAST SURGICAL HISTORY Procedure Laterality Date ENDOSCOPY PROC Social History: Social History Tobacco Use Smoking status: Never Smokeless tobacco: Never Vaping Use Vaping status: Never Used Substance Use Topics Alcohol use: No Drug use: No FAMILY HISTORY Problem Relation Age of Onset Psychiatry Mother DEPRESSION,SUICIDAL IDEATION Cancer Mother cancer in the appendix Leukemia Mother Hypertension Father Heart Father [place] Psychiatry Father DEPRESSION, bipolar COPD Father smoked from age 12 other (CHF) Father Diabetes Sister Depression Sister other (HTN) Sister Depression Brother other (htn) Brother Diabetes Brother Bipolar disorder Brother Psychiatry Brother Schizoaffective Alcohol/Drug Maternal Grandmother ALCOHOLIC Alzheimer's Disease Maternal Grandmother Arthritis Maternal Grandmother Colon Cancer Maternal Grandmother Psychiatry Maternal Grandmother Alcohol/Drug Maternal Grandfather ALCOHOLIC Stroke Maternal Grandfather Alcohol/Drug Paternal Grandmother ALCOHOLIC Heart Paternal Grandmother CHF Alcohol/Drug Paternal Grandfather ALCOHOLIC Heart Paternal Grandfather OK Stroke Paternal Grandfather Alzheimer's Disease Paternal Grandfather Diabetes Maternal Uncle Colon Cancer Maternal Uncle Cancer Maternal Uncle pancreatic cancer Breast Cancer Paternal Aunt Diabetes Paternal Aunt PAUNT X 5 Diabetes Paternal Uncle Autism Other Anxiety disorder Other Tourette syndrome Other Review Of Systems GENERAL: No weight loss, malaise or fevers. HEENT: Negative for frequent or significant headaches, No changes in hearing or vision, Ears Positive for tinnitus, vertigo/dizziness NECK: +cervicalgia I have confirmed and edited as necessary the ROS obtained by others. Merlene Mchugh PA-C PHYSICAL EXAM: LMP 01/01/2024 (Exact Date) No weight on file for this encounter. General appearance: Well appearing, alert, in no acute distress, well-hydrated, well nourished. Cranial Nerves: III-XII: grossly intact Skin: Skin color, texture, turgor normal, no suspicious rashes or lesions Head: normocephalic, no masses, lesions, tenderness or abnormalities Ears: Bilateral external ear(s) normal, external auditory canal(s) clear, tympanic membrane(s) normal. Nose/Sinuses: Nares normal. Mucosa and the visible turbinates are normal on anterior rhinoscopy. No purulence or polyps Oral Cavity / Oropharynx: Lips, oral mucosa, hard and soft palates, tongue and posterior pharngeal wall are without lesions Neck: The neck appears symmetric without scars. On palpation, there are no masses or lymphadenopathy. The thyroid is not palpable and was free of masses. No salivary gland masses or hypertrophy is noted. Neuro: Gait normal. Mental status revealed patient to be alert and oriented. Mood is appropriate Merlene Mchugh PA-C I spent 45 minutes in the visit, with more than 50% of the total [id number] time of the visit in counseling / coordination of care. documented in this encounter [facility] 01-06-2024 Instructions Merlene Mchugh PA-C - 01/06/2024 9:16 AM EST Schedule the vestibular rehab and vestibular test battery ~~~~~~~~~~~~~~~~~~~~~~~~~~~~~~~~~~ ~~~~~~~~~~~~~~~~~ Tinnitus What is tinnitus? Tinnitus is a condition in which you hear noises when there is no outside source of the sounds. The noises can have many different qualities (ringing, clicking, buzzing, roaring, whistling, or hissing) and can be soft or loud. Usually, only the person experiencing the tinnitus can hear the sounds. Tinnitus can occur either with or without hearing loss, and can be perceived in one or both ears or in the head. Approximately 50 million Americans have some form of tinnitus. For most people, the sensation usually lasts only a few minutes at a time. About 12 million people have constant or recurring tinnitus that interferes with their daily life so much that they seek professional treatment. For these individuals, tinnitus may result in a loss of sleep, interfere with concentration, and create negative emotional reactions such as despair, frustration, and depression. People of any age can suffer from tinnitus, although it does not typically occur in children. Children with tinnitus should be evaluated for hearing loss or other underlying cause. What causes tinnitus? Although tinnitus often has no specific cause, the most common identifiable causes of tinnitus include the following: hearing loss exposure to loud noises head injury medication side effects high or low blood pressure wax buildup in the ear canal fluid buildup behind the eardrum problems of the heart, blood vessels, neck, jaw, or teeth Your doctor will try to determine what is causing the condition. If it is not due to a medication side effect or a general medical condition (such as high blood pressure), he or she may refer you to an time study observer (an ear, nose, and throat doctor) or an network technician (hearing therapy director). It is especially important to see an time study observer if you experience tinnitus in only one ear, tinnitus that sounds like your heartbeat or pulse (pulsatile tinnitus), tinnitus with sudden or fluctuating hearing loss, pressure or fullness in one or both ears, and/or dizziness or balance problems. Unless the cause of the tinnitus is obvious on physical examination, a hearing test is usually required. What is the treatment for tinnitus? Learning the cause of tinnitus is often the most important step to determining treatment options. In many cases there are no medical or surgical treatments for tinnitus; however, there are management strategies that can provide some relief. Treatment options for tinnitus include the following: Hearing aids. Many people who have tinnitus also have hearing loss. Hearing aids may help provide relief from tinnitus by making it less noticeable. This is done by increasing the background noise level. Another benefit of hearing aids is that they improve communication by increasing incoming speech sounds. Sound generators. These adjustable ear-level devices produce a broadband sound (pleasant shower-like sound) that is delivered directly to the ear. These devices help people pay less attention to their tinnitus by masking it with other sounds. Sound generators are also used for tinnitus retraining therapy. (This therapy combines individualized counseling with use of sound generators.) Combination instruments. A hearing aid and sound generator can be housed in a single unit. These units are best for people who need hearing aids and may benefit from the use of sound generators. Environmental enrichment devices. A variety of [id number]-tj-tob devices can be used to increase the level of background sound in order to decrease the perception of tinnitus. These include tabletop sound machines that can generate different types of sounds (for example, rain, wind, waterfalls), CD/mp3 recordings of music and/or nature/environmental sounds and apps specifically created for tinnitus relief that can be used with smartphones or tablets. Neuromonics. A pleasant acoustic signal (embedded in music) is delivered to the ear through high fidelity earphones and a small credit-card size processor. This form of music therapy is a very pleasant alternative to other types of sound therapy and requires at least 6 months of active treatment time. The music also tends to further improve relaxation, which helps people cope with their tinnitus. Relaxation techniques. Many people who have tinnitus find that it worsens when they are under stress. Learning techniques to increase relaxation and ease stress can help people better deal with the frustrations of tinnitus. Other options. Cognitive behavioral or acceptance therapy with a psychologist can help people learn ways to limit the attention given to tinnitus and also help them better manage the stress and anxiety resulting from the tinnitus. Management of a temporomandibular disorder (TMD) (the area where the lower jaw and skull meet) by a dentist may be of value in helping to control dental issues, such teeth clenching and grinding, which are associated with tinnitus. An examination by a physical therapist may identify problems with the movement of the head, neck and jaw that can contribute to tinnitus. Follow-up physical therapy can help restore the proper movement of the neck and jaw and improve posture, which may reduce the severity of tinnitus. Certain behaviors can make tinnitus worse and should be avoided whenever possible. These include: Smoking or using other tobacco products Drinking alcohol Exposure to loud noises and sounds (If you work in a loud setting, wear earplugs to protect your hearing.) References [place] Academy of Otolaryngology - Head and Neck Surgery. Tinnitus Accessed 05/16/2013. [place] Tinnitus Association. Tinnitus Accessed 05/16/2013. [place] Academy of Audiology. Tinnitus: Ringing in Your Ears Accessed 05/16/2013. National [place] on Deafness and Other Communication Disorders (NIDCD). Tinnitus Accessed 05/16/2013. Copyright 1287-1450 [facility]. All rights reserved This information is provided by the [facility] and is not intended to replace the medical advice of your doctor or health care provider. Please consult your health care provider for advice about a specific medical condition. For additional health information, please contact the Center for Consumer Health Information at the [facility] or toll-free extension [phone]. If you prefer, you may visit [email or web address] or [email or web address]. This document was last reviewed on: 2013 documented in this encounter [facility] 01-06-2024 History of Present illness Narrative Images from the original note were not included. [facility] Head and Neck Department AUDIOLOGIC EVALUATION REPORT Name: Lyndon Burroughs [facility]#: [id number] Date of Service: 01/06/2024 Date of : 1980 Age: [age] year old Referred by: Igor Blair APRN.* Referred for: Evaluation of the cause of disorder of hearing, tinnitus, or balance. Referral documented: In an order in Epic Patient's major complaints: Tinnitus in both ears, Dizziness/vertigo/imbalance, Pressure/fullness left ear greater than right ear Hearing loss: denied Tinnitus: intermittent in both ears for at least the last 10 years Ear pain: denied Aural fullness: feels fullness in left ear more than right Otorrhea: denied History of ear infections: denied History of otologic surgeries: denied Dizziness: she experiences both room spinning and lightheadedness. She can be standing up, rolling over in bed, turning her head. Noted more left than right. Noise exposure: in band in high school. Attending concerts. She tries to use hearing protection. History of chemotherapy or radiation: denied History of head trauma: denied Family history of hearing loss: denied Hearing aids: no Other concerns: none Lyndon Burroughs was seen for an initial audiologic evaluation. See Audiogram in Procedures Tab for additional reported history and symptoms. Risk of Falls Documentation for over 65 years old: Does not apply IMPRESSIONS RIGHT EAR: Hearing within normal limits LEFT EAR: Essentially WNL Comparison of today's results with previous test results (): No previous results available AUDIOLOGIC EVALUATION Following is a brief interpretation of the obtained findings from the audiologic evaluation. Refer to the Auditory Test Record for complete audiometric results. The patient was counseled about the test findings and appropriate audiologic recommendations were made. SUMMARY: Audiogram can be viewed under Procedures Tab OTOSCOPY RIGHT EAR: Otoscopic inspection revealed ear canal was clear with minimal amount of non-occluding cerumen present and identifiable cone of light suggesting WNL middle ear system. LEFT EAR: Otoscopic inspection revealed ear canal was clear with an identifiable cone of light suggesting WNL middle ear system. TYMPANOMETRY Description of procedure: This test is an objective evaluation of middle ear function. CPT code: 51683 RIGHT EAR: Normal ME function. LEFT EAR: Normal ME function. ACOUSTIC REFLEXES Description of procedure: This test is an objective measure of auditory and facial nerve pathways. CPT code: 29358, 25215 RIGHT EAR PROBE EAR: (ipsi right stimulus ear; contralateral left stimulus ear): Acoustic Reflex Pattern Did not test Acoustic Reflex Decay (left stimulus ear): Did not test. LEFT EAR PROBE EAR: (ipsi left stimulus ear; contralateral right stimulus ear): Acoustic Reflex Pattern Did not test Acoustic Reflex Decay (right stimulus ear):Did not test. PURE TONE AUDIOMETRY AND SPEECH TESTING Description of procedure: This test is an objective evaluation hearing sensitivity via air and bone conduction and speech recognition testing. CPT code: 68735 RIGHT EAR: Hearing Sensitivity: WNL Word Recognition Score: Excellent (100%). WRS is consistent with hearing sensitivity. Words were presented at 50 dB HL approximates (45-55 dB HL) intensity level for average conversational speech. The NU-6 Ordered by Difficulty Word List (10 words) was used for testing. and Contralateral masking was used. LEFT EAR: Hearing Sensitivity: WNL to mild unspecified loss at 8000 Hz. Word Recognition Score: Excellent (100%). WRS is consistent with hearing sensitivity. Words were presented at 50 dB HL which approximates (45-55 dB HL) intensity level for average conversational speech. The NU-6 Ordered by Difficulty Word List (10 words) was used for testing. and Contralateral masking was used. RECOMMENDATIONS * Continue medical follow-up with Merlene Mchugh PA-C. * Re-evaluation as medically indicated. * Return if a change in hearing is noted. * Consider assessment of vestibular and balance system (Vestibular Battery). Jose Keane., EDI-A Senior Human Resource Internship copied to: Errol Luu MD GERARDO Abbrev- iation Definition Degree of hearing sensitivity dB range WNL within normal limits WNL 0 - 20 SNHL sensorineural hearing loss Mild 20-40 CHL conductive hearing loss Moderate 40-55 MHL mixed hearing loss Moderately-Severe 55-70 WRS word recognition score Severe 70-90 ME middle ear Profound 90 + TM tympanic membrane documented in this encounter [facility] 01-06-2024 Note HNO ID: [id number] Author: NASREEN SOLORZANO AuD, CCC-A Service: ? Author Type: Human Resource Internship Type: Progress Notes Filed: 01/06/2024 08:34 Note Text: [facility] Head and Neck Department AUDIOLOGIC EVALUATION REPORT Name: Lyndon Burroughs [facility]#: [id number] Date of Service: 01/06/2024 Date of : 1980 Age: [age] year old Referred by: Igor Blair APRN.* Referred for: Evaluation of the cause of disorder of hearing, tinnitus, or balance. Referral documented: In an order in [facility] Patient's major complaints: Tinnitus in both ears, Dizziness/vertigo/imbalance, Pressure/fullness left ear greater than right ear Hearing loss: denied Tinnitus: intermittent in both ears for at least the last 10 years Ear pain: denied Aural fullness: feels fullness in left ear more than right Otorrhea: denied History of ear infections: denied History of otologic surgeries: denied Dizziness: she experiences both room spinning and lightheadedness. She can be standing up, rolling over in bed, turning her head. Noted more left than right. Noise exposure: in band in high school. Attending concerts. She tries to use hearing protection. History of chemotherapy or radiation: denied History of head trauma: denied Family history of hearing loss: denied Hearing aids: no Other concerns: none Lyndon Burroughs was seen for an initial audiologic evaluation. See Audiogram in Procedures Tab for additional reported history and symptoms. Risk of Falls Documentation for over 65 years old: Does not apply IMPRESSIONS RIGHT EAR: Hearing within normal limits LEFT EAR: Essentially WNL Comparison of today's results with previous test results (): No previous results available AUDIOLOGIC EVALUATION Following is a brief interpretation of the obtained findings from the audiologic evaluation. Refer to the Auditory Test Record for complete audiometric results. The patient was counseled about the test findings and appropriate audiologic recommendations were made. SUMMARY: Audiogram can be viewed under Procedures Tab OTOSCOPY RIGHT EAR: Otoscopic inspection revealed ear canal was clear with minimal amount of non-occluding cerumen present and identifiable cone of light suggesting WNL middle ear system. LEFT EAR: Otoscopic inspection revealed ear canal was clear with an identifiable cone of light suggesting WNL middle ear system. TYMPANOMETRY Description of procedure: This test is an objective evaluation of middle ear function. CPT code: 44708 RIGHT EAR: Normal ME function. LEFT EAR: Normal ME function. ACOUSTIC REFLEXES Description of procedure: This test is an objective measure of auditory and facial nerve pathways. CPT code: 81493, 12000 RIGHT EAR PROBE EAR: (ipsi right stimulus ear; contralateral left stimulus ear): Acoustic Reflex Pattern Did not test Acoustic Reflex Decay (left stimulus ear): Did not test. LEFT EAR PROBE EAR: (ipsi left stimulus ear; contralateral right stimulus ear): Acoustic Reflex Pattern Did not test Acoustic Reflex Decay (right stimulus ear):Did not test. PURE TONE AUDIOMETRY AND SPEECH TESTING Description of procedure: This test is an objective evaluation hearing sensitivity via air and bone conduction and speech recognition testing. CPT code: 87322 RIGHT EAR: Hearing Sensitivity: WNL Word Recognition Score: Excellent (100%). WRS is consistent with hearing sensitivity. Words were presented at 50 dB HL approximates (45-55 dB HL) intensity level for average conversational speech. The NU-6 Ordered by Difficulty Word List (10 words) was used for testing. and Contralateral masking was used. LEFT EAR: Hearing Sensitivity: WNL to mild unspecified loss at 8000 Hz. Word Recognition Score: Excellent (100%). WRS is consistent with hearing sensitivity. Words were presented at 50 dB HL which approximates (45-55 dB HL) intensity level for average conversational speech. The NU-6 Ordered by Difficulty Word List (10 words) was used for testing. and Contralateral masking was used. RECOMMENDATIONS * Continue medical follow-up with Merlene Mchugh PA-C. * Re-evaluation as medically indicated. * Return if a change in hearing is noted. * Consider assessment of vestibular and balance system (Vestibular Battery). Jose Keane., [facility]-A Senior Human Resource Internship copied to: Errol Luu MD GERARDO Abbrev- iation Definition Degree of hearing sensitivity dB range WNL within normal limits WNL 0 - 20 SNHL sensorineural hearing loss Mild 20-40 CHL conductive hearing loss Moderate 40-55 MHL mixed hearing loss Moderately-Severe 55-70 WRS word recognition score Severe 70-90 ME middle ear Profound 90 + TM tympanic membrane [facility] 12-31-2023 Note HNO ID: [id number] Author: ROSIE SORIANO APRN.[facility] Service: ? Author Type: Nurse Practitioner Type: Progress Notes Filed: 12/31/2023 09:21 Note Text: This note was created using NoteWriter. Subjective Lyndon Burroughs is a 43 year old female. 43 year old female with PMH anxiety, ADHD, Acute onset yesterday +irritated +white spots Denies eye, ear nose Denies cough Denies fever or chills Denies malaise or fatigue Denies URI sx. 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 No saw edge fuser circular was used. Sore Throat This is a new problem. The current episode started yesterday. The problem has been unchanged. Neither side of throat is experiencing more pain than the other. There has been no fever. The pain is at a severity of 5/10. The pain is moderate. Associated symptoms include swollen glands. Pertinent negatives include no abdominal pain, congestion, coughing, diarrhea, drooling, ear discharge, ear pain, headaches, hoarse voice, plugged ear sensation, neck pain, shortness of breath, stridor, trouble swallowing or vomiting. She has had no exposure to strep or mono. She has tried nothing for the symptoms. The treatment provided no relief. PAST MEDICAL HISTORY Diagnosis Date ASCUS with positive high risk HPV cervical 05/2017 Mood disorder ([facility]) counseling center Myopia, bilateral 12/23/2017 Obsessive-compulsive disorders Other specified anemias PMH - PAST MEDICAL HISTORY OF HIATAL HERNIA Psychosis ([facility]) Dr. Rocha at [facility] center PAST SURGICAL HISTORY Procedure Laterality Date ENDOSCOPY PROC ALLERGIES Latex and Tomatoes MEDICATIONS ATIVAN 0.5 mg paliperidone ER (INVEGA) 3 mg 24 hr tablet Norethindrone, Contraceptive, (ORTHO MICRONOR) 0.35 mg tablet Take 1 tablet by mouth once daily. elderberry fruit (ELDERBERRY ORAL) Take by mouth. buPROPion (WELLBUTRIN) 75 mg tablet Take 75 mg by mouth once daily. amphetamine-dextroamphetamine (ADDERALL) 15 mg tablet Take 15 mg by mouth two times a day. MULTIVITAMIN ORAL Take by mouth once daily. FAMILY HISTORY Problem Relation Age of Onset Psychiatry Mother DEPRESSION,SUICIDAL IDEATION Cancer Mother cancer in the appendix Leukemia Mother Hypertension Father Heart Father OK Psychiatry Father DEPRESSION, bipolar COPD Father smoked from age 12 other (CHF) Father Diabetes Sister Depression Sister other (HTN) Sister Depression Brother other (htn) Brother Diabetes Brother Bipolar disorder Brother Psychiatry Brother Schizoaffective Alcohol/Drug Maternal Grandmother ALCOHOLIC Alzheimer's Disease Maternal Grandmother Arthritis Maternal Grandmother Colon Cancer Maternal Grandmother Psychiatry Maternal Grandmother Alcohol/Drug Maternal Grandfather ALCOHOLIC Stroke Maternal Grandfather Alcohol/Drug Paternal Grandmother ALCOHOLIC Heart Paternal Grandmother CHF Alcohol/Drug Paternal Grandfather ALCOHOLIC Heart Paternal Grandfather OK Stroke Paternal Grandfather Alzheimer's Disease Paternal Grandfather Diabetes Maternal Uncle Colon Cancer Maternal Uncle Cancer Maternal Uncle pancreatic cancer Breast Cancer Paternal Aunt Diabetes Paternal Aunt PAUNT X 5 Diabetes Paternal Uncle Autism Other Anxiety disorder Other Tourette syndrome Other Social History Tobacco Use Smoking status: Never Smokeless tobacco: Never Vaping Use Vaping status: Never Used Substance Use Topics Alcohol use: No Drug use: No Review of Systems Constitutional: Negative for activity change, appetite change, chills and diaphoresis. HENT: Positive for sore throat. Negative for congestion, drooling, ear discharge, ear pain, hoarse voice and trouble swallowing. Eyes: Negative for pain, discharge and itching. Respiratory: Negative for cough, shortness of breath and stridor. Gastrointestinal: Negative for abdominal pain, diarrhea and vomiting. Musculoskeletal: Negative for neck pain. Allergic/Immunologic: Negative for environmental allergies, food allergies and immunocompromised state. Neurological: Negative for headaches. Hematological: Negative for adenopathy. Does not bruise/bleed easily. Objective BP 145/72 Pulse 85 Temp 36.4 ?C (97.6 ?F) Resp 18 Wt 126.8 kg (279 lb 8.7 oz) LMP 11/24/2023 (Exact Date) SpO2 98% BMI 45.12 kg/m? Physical Exam Vitals and nursing note reviewed. Constitutional: General: She is not in acute distress. Appearance: Normal appearance. She is obese. She is not ill-appearing, toxic-appearing or diaphoretic. HENT: Head: Normocephalic and atraumatic. Right Ear: Ear canal and external ear normal. Left Ear: Ear canal and external ear normal. Nose: Nose normal. No congestion or rhinorrhea. Mouth/Throat: Mouth: Mucous membranes are moist. Pharynx: No oropharyngeal exudate or posterior oropharyngeal erythema (2 + enlarged bilateral tonsils. +exudate. (more content not included)... [facility] 12-31-2023 History of Present illness Narrative This note was created using NoteWriter. Subjective Lyndon Burroughs is a 43 year old female. 43 year old female with PMH anxiety, ADHD, Acute onset yesterday +irritated +white spots Denies eye, ear nose Denies cough Denies fever or chills Denies malaise or fatigue Denies URI sx. 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 No saw edge fuser circular was used. Sore Throat This is a new problem. The current episode started yesterday. The problem has been unchanged. Neither side of throat is experiencing more pain than the other. There has been no fever. The pain is at a severity of 5/10. The pain is moderate. Associated symptoms include swollen glands. Pertinent negatives include no abdominal pain, congestion, coughing, diarrhea, drooling, ear discharge, ear pain, headaches, hoarse voice, plugged ear sensation, neck pain, shortness of breath, stridor, trouble swallowing or vomiting. She has had no exposure to strep or mono. She has tried nothing for the symptoms. The treatment provided no relief. PAST MEDICAL HISTORY Diagnosis Date ASCUS with positive high risk HPV cervical 05/2017 Mood disorder ([facility]) counseling roy Myopia, bilateral 12/23/2017 Obsessive-compulsive disorders Other specified anemias PMH - PAST MEDICAL HISTORY OF HIATAL HERNIA Psychosis ([facility]) Dr. Rocha at [facility] center PAST SURGICAL HISTORY Procedure Laterality Date ENDOSCOPY PROC ALLERGIES Latex and Tomatoes MEDICATIONS ATIVAN 0.5 mg paliperidone ER (INVEGA) 3 mg 24 hr tablet Norethindrone, Contraceptive, (ORTHO MICRONOR) 0.35 mg tablet Take 1 tablet by mouth once daily. elderberry fruit (ELDERBERRY ORAL) Take by mouth. buPROPion (WELLBUTRIN) 75 mg tablet Take 75 mg by mouth once daily. amphetamine-dextroamphetamine (ADDERALL) 15 mg tablet Take 15 mg by mouth two times a day. MULTIVITAMIN ORAL Take by mouth once daily. FAMILY HISTORY Problem Relation Age of Onset Psychiatry Mother DEPRESSION,SUICIDAL IDEATION Cancer Mother cancer in the appendix Leukemia Mother Hypertension Father Heart Father [place] Psychiatry Father DEPRESSION, bipolar COPD Father smoked from age 12 other (CHF) Father Diabetes Sister Depression Sister other (HTN) Sister Depression Brother other (htn) Brother Diabetes Brother Bipolar disorder Brother Psychiatry Brother Schizoaffective Alcohol/Drug Maternal Grandmother ALCOHOLIC Alzheimer's Disease Maternal Grandmother Arthritis Maternal Grandmother Colon Cancer Maternal Grandmother Psychiatry Maternal Grandmother Alcohol/Drug Maternal Grandfather ALCOHOLIC Stroke Maternal Grandfather Alcohol/Drug Paternal Grandmother ALCOHOLIC Heart Paternal Grandmother CHF Alcohol/Drug Paternal Grandfather ALCOHOLIC Heart Paternal Grandfather OK Stroke Paternal Grandfather Alzheimer's Disease Paternal Grandfather Diabetes Maternal Uncle Colon Cancer Maternal Uncle Cancer Maternal Uncle pancreatic cancer Breast Cancer Paternal Aunt Diabetes Paternal Aunt PAUNT X 5 Diabetes Paternal Uncle Autism Other Anxiety disorder Other Tourette syndrome Other Social History Tobacco Use Smoking status: Never Smokeless tobacco: Never Vaping Use Vaping status: Never Used Substance Use Topics Alcohol use: No Drug use: No Review of Systems Constitutional: Negative for activity change, appetite change, chills and diaphoresis. HENT: Positive for sore throat. Negative for congestion, drooling, ear discharge, ear pain, hoarse voice and trouble swallowing. Eyes: Negative for pain, discharge and itching. Respiratory: Negative for cough, shortness of breath and stridor. Gastrointestinal: Negative for abdominal pain, diarrhea and vomiting. Musculoskeletal: Negative for neck pain. Allergic/Immunologic: Negative for environmental allergies, food allergies and immunocompromised state. Neurological: Negative for headaches. Hematological: Negative for adenopathy. Does not bruise/bleed easily. Objective BP 145/72 Pulse 85 Temp 36.4 C (97.6 F) Resp 18 Wt 126.8 kg (279 lb 8.7 oz) LMP 11/24/2023 (Exact Date) SpO2 98% BMI 45.12 kg/m Physical Exam Vitals and nursing note reviewed. Constitutional: General: She is not in acute distress. Appearance: Normal appearance. She is obese. She is not ill-appearing, toxic-appearing or diaphoretic. HENT: Head: Normocephalic and atraumatic. Right Ear: Ear canal and external ear normal. Left Ear: Ear canal and external ear normal. Nose: Nose normal. No congestion or rhinorrhea. Mouth/Throat: Mouth: Mucous membranes are moist. Pharynx: No oropharyngeal exudate or posterior oropharyngeal erythema (2 + enlarged bilateral tonsils. +exudate. Uvula midline). Eyes: General: Right eye: No discharge. Left eye: No discharge. Extraocular Movements: Extraocular movements intact. Conjunctiva/sclera: Conjunctivae normal. Pupils: Pupils are equal, round, and reactive to light. Cardiovascular: Rate and Rhythm: Normal rate and regular rhythm. Pulses: Normal pulses. Heart sounds: Normal heart sounds. No murmur heard. No friction rub. Pulmonary: Effort: Pulmonary effort is normal. No respiratory distress. Breath sounds: Normal breath sounds. No stridor. No wheezing, rhonchi or rales. Chest: Chest wall: No tenderness. Abdominal: General: Abdomen is flat. There is no distension. Palpations: Abdomen is soft. There is no mass. Tenderness: There is no abdominal tenderness. There is no right CVA tenderness, left CVA tenderness, guarding or rebound. Hernia: No hernia is present. Musculoskeletal: General: No swelling, tenderness, deformity or signs of injury. Normal range of motion. Cervical back: Normal range of motion and neck supple. No rigidity. Right lower leg: No edema. Left lower leg: No edema. Lymphadenopathy: Cervical: Cervical adenopathy present. Skin: General: Skin is warm and dry. Coloration: Skin is not jaundiced or pale. Findings: No bruising, erythema, lesion or rash. Neurological: General: No focal deficit present. Mental Status: She is alert and oriented to person, place, and time. Cranial Nerves: No cranial nerve deficit. Sensory: No sensory deficit. Motor: No weakness. Coordination: Coordination normal. Gait: Gait normal. Psychiatric: Mood and Affect: Mood normal. Behavior: Behavior normal. Thought Content: Thought content normal. Judgment: Judgment normal. Assessment and Plan ASSESSMENT/PLAN: 1. Pharyngitis, unspecified etiology - ICD9: 462, ICD10: J02.9 X 1 day - suspect viral - Group A strep molecular testing negative - Discussed supportive care treatment with fluids, rest and analgesia. - The patient may also use OTC cough and cold meds as needed, warm salt water gargles, throat lozenges and/or OTC throat spray as needed, and nasal saline gtts and suction prn. - Contagious dz precautions discussed- including considered contagious until on antibiotics for 24 hours - The patient should follow up in 3-5 days if symptoms persist or worsen - Call back if drooling, increased temperature, symptoms of dehydration and/or still sick in one week - STREP A MOLECULAR (POC)-negative Declines viral/flu testing Rosie Soriano APRN.SANDRA documented in this encounter [facility] 12-28-2023 Note HNO ID: [id number] Author: ?, ?, ? Service: ? Author Type: ? Type: Progress Notes Filed: 12/29/2023 08:20 Note Text: UNIVERSAL PROTOCOL / SAFETY CHECKLIST Procedure to be Performed: ANS WITH TILT Sign In: A Moment of CARE was completed. Personnel directly involved with the procedure wore the appropriate PPE (Personal Protective Equipment). Patient/Surrogate Stated/Verified: PATIENT VERIFIED(optional for EMERGENT procedures): Patient name, Date of , Relevant allergies, and The intended procedure Time Out Communication: Intended patient and procedure match the source documents. No medications required for procedure. Sign Out: SIGN OUT (optional for EMERGENT procedures): Post-procedure follow-up management communicated and Plan of Care Visit completed when applicable. Kelli Currie [facility] 12-28-2023 History of Present illness Narrative UNIVERSAL PROTOCOL / SAFETY CHECKLIST Procedure to be Performed: ANS WITH TILT Sign In: A Moment of CARE was completed. Personnel directly involved with the procedure wore the appropriate PPE (Personal Protective Equipment). Patient/Surrogate Stated/Verified: PATIENT VERIFIED(optional for EMERGENT procedures): Patient name, Date of , Relevant allergies, and The intended procedure Time Out Communication: Intended patient and procedure match the source documents. No medications required for procedure. Sign Out: SIGN OUT (optional for EMERGENT procedures): Post-procedure follow-up management communicated and Plan of Care Visit completed when applicable. Kelli Currie documented in this encounter [facility] 12-28-2023 Note HNO ID: [id number] Author: ?, ?, ? Service: ? Author Type: ? Type: Progress Notes Filed: 12/29/2023 08:19 Note Text: UNIVERSAL PROTOCOL / SAFETY CHECKLIST Procedure to be Performed: QSART Sign In: A Moment of CARE was completed. Personnel directly involved with the procedure wore the appropriate PPE (Personal Protective Equipment). Patient/Surrogate Stated/Verified: PATIENT VERIFIED(optional for EMERGENT procedures): Patient name, Date of , Relevant allergies, and The intended procedure Time Out Communication: Intended patient and procedure match the source documents. Medications required for procedure verified. Sign Out: SIGN OUT (optional for EMERGENT procedures): Post-procedure follow-up management communicated and Plan of Care Visit completed when applicable. Kelli Currie [facility] 12-28-2023 History of Present illness Narrative UNIVERSAL PROTOCOL / SAFETY CHECKLIST Procedure to be Performed: QSART Sign In: A Moment of CARE was completed. Personnel directly involved with the procedure wore the appropriate PPE (Personal Protective Equipment). Patient/Surrogate Stated/Verified: PATIENT VERIFIED(optional for EMERGENT procedures): Patient name, Date of , Relevant allergies, and The intended procedure Time Out Communication: Intended patient and procedure match the source documents. Medications required for procedure verified. Sign Out: SIGN OUT (optional for EMERGENT procedures): Post-procedure follow-up management communicated and Plan of Care Visit completed when applicable. Kelli Currie documented in this encounter [facility] 12-28-2023 Telephone encounter Note Refill request received via [employer] for patients OCP. Patient last seen for annual exam on 01/08/23. She has upcoming annual on 01/11/24. Josey Hutchinson RN [facility] 12-28-2023 Miscellaneous Notes Refill request received via [employer] for patients OCP. Patient last seen for annual exam on 01/08/23. She has upcoming annual on 01/11/24. Josey Hutchinson RN documented in this encounter [facility] 12-17-2023 History of Present illness Narrative Radiology Service Progress Note PATIENT NAME: Lyndon Burroughs DATE OF SERVICE: December 17, 2023 TIME: 12:42 PM PATIENT IDENTITY VERIFICATION COMPLETED USING TWO (2) IDENTIFIERS: Name and Date of confirmed by patient verbally. FALL SCREENING: Has the patient had 2 falls in the last year or 1 fall with injury or currently using an Ambulatory Assistive Device (Walker, Cane, Wheelchair, Crutches, etc.)? No PATIENT GENDER DATA: Female. status: : No status: NO. PATIENT RELEVANT IMPLANT DATA REVIEWED: Yes PATIENT PRESENTS WITH AN IMPLANTABLE OR ATTACHED POOLING OPERATOR: No RADIOLOGY DEPARTMENT: CT; Exam(s) Completed: Abdomen/Pelvis PERIPHERAL IV DATA: Not applicable SIGNED BY: RT Jerri(R) December 17, 2023 12:42 PM documented in this encounter [facility] 12-17-2023 Note HNO ID: [id number] Author: KELLI RABAGO RT (R) Service: ? Author Type: Inside Sales Supervisor Type: Progress Notes Filed: 12/17/2023 12:43 Note Text: Radiology Service Progress Note PATIENT NAME: Lyndon Burroughs DATE OF SERVICE: December 17, 2023 TIME: 12:42 PM PATIENT IDENTITY VERIFICATION COMPLETED USING TWO (2) IDENTIFIERS: Name and Date of confirmed by patient verbally. FALL SCREENING: Has the patient had 2 falls in the last year or 1 fall with injury or currently using an Ambulatory Assistive Device (Walker, Cane, Wheelchair, Crutches, etc.)? No PATIENT GENDER DATA: Female. status: : No status: NO. PATIENT RELEVANT IMPLANT DATA REVIEWED: Yes PATIENT PRESENTS WITH AN IMPLANTABLE OR ATTACHED POOLING OPERATOR: No RADIOLOGY DEPARTMENT: CT; Exam(s) Completed: Abdomen/Pelvis PERIPHERAL IV DATA: Not applicable SIGNED BY: GERONIMO Guthrie) December 17, 2023 12:[address] [facility] 12-09-2023 Telephone encounter Note Sw left message for patient to return Sw call to discuss social service needs. [facility] 12-09-2023 Miscellaneous Notes Sw left message for patient to return Sw call to discuss social service needs. Sw received consult requesting Sw reach out to patient to discuss financial assistance needs. Sw left message for patient to return Sw call. Sw will also send My Chart message as well to see if that is an easier way to connect. documented in this encounter [facility] 12-08-2023 Telephone encounter Note Spoke with pt and results below given. Double checking on eating red meat. I instructed eating less red meat. If this is incorrect please advise pt. Pt reports she doesn't eat a lot of red meat. Yara Lock LPN [facility] 12-08-2023 Telephone encounter Note ----- Message from Errol Luu MD sent at 12/07/2023 7:28 PM EDT ----- Please review lipid labs and if you have any questions let me know. In general weight loss and exercising for at least 30 minutes every day along with eating red meat may help with reducing these numbers. [facility] 12-08-2023 Miscellaneous Notes Spoke with pt and results below given. Double checking on eating red meat. I instructed eating less red meat. If this is incorrect please advise pt. Pt reports she doesn't eat a lot of red meat. Yara Lock LPN ----- Message from Errol Luu MD sent at 12/07/2023 7:28 PM EDT ----- Please review lipid labs and if you have any questions let me know. In general weight loss and exercising for at least 30 minutes every day along with eating red meat may help with reducing these numbers. documented in this encounter [facility] 12-07-2023 Instructions Seema Guillory MD - 12/07/2023 8:50 AM EDT COLONOSCOPY BOWEL PREPARATION INSTRUCTIONS GOLYTELY/NULYTELY/TRILYTE/COLYTE Your doctor has scheduled you for a colonoscopy. To have a successful colonoscopy, you must have a clean colon, that is empty. A clean colon allows your doctor to see the entire colon & diagnose issues like polyps or cancer. For doctors, a clean colon is like driving on a deysi day; a dirty colon like driving in a storm. It is very important that you follow these instructions exactly, or your colonoscopy might not be as effective, could be canceled, and you may need to do the bowel prep and the colonoscopy again. TRANSPORTATION REQUIREMENTS You are receiving IV sedation. For your safety, a responsible adult escort must accompany you to and from your procedure: Your adult escort MUST be present with you at check-in for your colonoscopy. Your adult escort MUST remain in the endoscopy area until you are discharged. Your adult escort MUST transport you home once you are discharged. You are NOT allowed to operate any form of transportation (i.e. drive a car, bicycle, etc.) or leave the Endoscopy Center ALONE. It is not safe to do so. If you cannot meet these requirements, your procedure will be canceled. MEDICATION REQUIREMENTS For your safety, certain medications will need to be stopped or adjusted before you can have your procedure: BLOOD THINNERS: If you take blood thinners, such as Coumadin (warfarin), Plavix (clopidogrel), Ticlid (ticlopidine hydrochloride), Agrylin (anagrelide), Xarelto (Rivaroxaban), Pradaxa (Dabigatran), Eliquis (Apixaban), or Effient (Prasugrel), contact the physician who is prescribing these medications at least 2 weeks prior to your procedure to discuss any necessary adjustments. DIABETES: If you take medications for diabetes, your dosage may need to be adjusted. If you are being treated for diabetes with insulin, diabetic pills, or other injectable medications do not take your REGULAR dose after midnight on the day of your procedure. If you are taking any other types of insulin such as Lantus, Humalog, NPH (long-acting insulin), or 70/30 insulin, take half your normal dose the day before your procedure. DIABETES/WEIGHT MANAGEMENT: If you take medications for weight-loss, your dosage may need to be adjusted Contact the doctor who prescribes this medication for further instructions. If you take medications for weight-loss like semaglutide (Ozempic, Wegovy, Rybelsus), dulaglutide (Trulicity), liraglutide (Victoza, Saxenda), exenatide (Byetta, Bydureon), or lixisenatide (Adylyxin), stop your medication 1 week prior to your procedure. If you take medications like canagliflozin (Invokana), dapagliflozin (Farxiga, Forxiga), empagliflozin (Jardiance), stop your medication 3 days prior to your procedure. If you take ertugliflozin (Steglatro) stop your medication 4 days prior to your procedure. IRON: If you take iron pills, STOP them 1 week BEFORE your procedure, may resume after. OTHER MEDS: May take all other medications (including aspirin, antibiotics, water pills / diuretics like Lasix or Metolozone, blood pressure meds, etc.) at their usual scheduled time with a sip of water. DIET REQUIREMENTS The day before your colonoscopy, you may have a clear liquid diet (see below). The day of your colonoscopy, you may continue a clear liquid diet until 3 hours before your colonoscopy. Within 3 hours of your colonoscopy, take only any medications (as above) with a sip of water. Clear Liquid Diet Broth (chicken, beef or vegetable broth or bullion. Just the broth, no solids). Water Coffee or Tea (NO milk or creamer), but sugar and sugar substitutes are allowed. Clear liquids including clear, yellow, green, blue (NO red, NO orange, NO purple) Sodas / soft drinks Gatorade or other sports drinks Christos-Aid or flavored drinks Plain Jell-O or other gelatins Fruit juice (strained; no-pulp) Popsicles or hard candy BOWEL PREPARATION (GOLYTELY/NULYTELY/TRILYTE/COLYTE) Split Dosing Bowel Prep: This means drinking your bowel prep in two doses. Split dosing helps clean your colon better and makes it less likely that your procedure will be canceled. Fill your prescription for Golytely/Nulytely/Trilyte/Colyte: The afternoon before your colonoscopy, mix the solution and refrigerate. You may add the flavor pack (if present) that came with the bowel preparation. Do not add ice, sugar, or other flavorings to the solution. You will drink your prep in two doses, by several hours. On the evening before your colonoscopy: 1. 6 PM drink the first half of the bowel preparation solution. Drink one 8-ounce glass every 15 minutes. 2. Six hours before your colonoscopy, drink the second half of the solution. Drink one 8-ounce glass every 15 minutes. 3. You may continue a clear liquid diet until 3 hours before your colonoscopy. Bowel prep can work differently from person to person. Some people's bowels move slowly and they may need different instructions. Please see your doctor in office or virtually for personalized bowel prep instructions if you have: Medical condition that needs special accommodations Had a poor bowel prep results or failed bowel prep attempts in the past. Had difficulty with anesthesia during the procedure. FREQUENTLY ASKED QUESTIONS Q: What if I suffer from constipation? A: Recommend taking extra laxatives to resolve your constipation days prior to entering the bowel prep day. Q: What if have had prior poor preps results in past? A: Contact your physician as you will likely need additional bowel prep instructions. Q: What if I have motility issues like Parkinson's, MS (multiple sclerosis), wheelchair dependent, etc.? or on medications that slow bowel emptying (narcotics, gabapentin, anticholinergic medications etc.) A: Contact your physician as you will likely need extra time and additional laxatives to complete your bowel prep. Q: What if I cannot drink large volume of liquid? A: Start your prep 2-3 hours earlier to allow yourself more time to complete the entire prep. Q: What if I can't finish my bowel prep? A: If you cannot finish your entire bowel prep, it is likely that your colonoscopy will need to be rescheduled due to poor prep quality. Q: What if I had bariatric surgery? Do I still have to complete the entire prep? A: Yes, gastric bypass surgery involves the stomach & small bowel. You may need to drink smaller amounts, slower (may need more time to complete your bowel prep). Gastric bypass does not alter the length of your colon so you will need to complete the entire bowel prep, it may just take longer time to complete it. Q: What if I am on dialysis? A: Please consult your general operations agent prior to scheduling to get instructions pertinent to you. In general, dialysis patients take the Hupuly bowel prep and have the procedure same day of their dialysis (colonoscopy in AM, dialysis in PM). Q: How do I know if something is considered as clear liquid diet? A: If you can pour it in a glass and you can see through it, it is considered clear liquid Q: Can I eat nuts, seeds, beans, popcorn, dried fruits, vegetables & fruits that have skin peel? A: No, you will need to not eat these items starting 3 days prior to procedure. Q: Can I take Uber/Lyft/taxi/bus home? A: An adult MUST be present with you at check-in for your colonoscopy and remain in the endoscopy area until you are discharged. You can take Uber home only if this adult escort is with you at check in, remain in the endoscopy area until you are discharged, and takes the Uber with you to home. Q: Can I sleep it off here and drive myself home? A: No, you must have an adult with you at time of procedure check in, remain in the endoscopy center during your procedure, and drive you home. You cannot drive a vehicle after your procedure the rest of the day. documented in this encounter [facility] 12-07-2023 History of Present illness Narrative HISTORY AND PHYSICAL Lyndon Burroughs 1980 REFERRING PHYSICIAN: Tico Root APRN.BATCH AND FURNACE MANAGER CHIEF COMPLAINT: No chief complaint on file. HPI: The patient is a 43 year old female referred for endoscopy. Lyndon notes presents for screening for colon cancer via colonoscopy The patient denies blood in stools, denies abdominal pain, and denies changes in bowel habits. Patient's mother had appendiceal cancer, diagnosed in her late 60s and has passed due to this. Her maternal grandmother had colon cancer She denies previous colonoscopy. She did have previous EGD at age 17. PAST MEDICAL HISTORY Diagnosis Date ASCUS with positive high risk HPV cervical 05/2017 Mood disorder (HCC) counseling center Myopia, bilateral 12/23/2017 Obsessive-compulsive disorders Other specified anemias PMH - PAST MEDICAL HISTORY OF HIATAL HERNIA Psychosis (HCC) Dr. Rocha at [facility] PAST SURGICAL HISTORY Procedure Laterality Date ENDOSCOPY PROC Current Outpatient Medications Medication Sig buPROPion (WELLBUTRIN) 75 mg tablet Take 75 mg by mouth once daily. amphetamine-dextroamphetamine (ADDERALL) 15 mg tablet Take 15 mg by mouth two times a day. Norethindrone, Contraceptive, (ORTHO MICRONOR) 0.35 mg tablet Take 1 tablet by mouth once daily. MULTIVITAMIN ORAL Take by mouth once daily. No current facility-administered medications for this visit. ALLERGIES: Latex and Tomatoes PERSONAL HISTORY: Social History Tobacco Use Smoking status: Never Smokeless tobacco: Never Vaping Use Vaping status: Never Used Substance Use Topics Alcohol use: No Drug use: No FAMILY HISTORY Problem Relation Age of Onset Psychiatry Mother DEPRESSION,SUICIDAL IDEATION Cancer Mother cancer in the appendix Leukemia Mother Hypertension Father Heart Father OK Psychiatry Father DEPRESSION, bipolar COPD Father smoked from age 12 other (CHF) Father Diabetes Sister Depression Sister other (HTN) Sister Depression Brother other (htn) Brother Diabetes Brother Bipolar disorder Brother Psychiatry Brother Schizoaffective Alcohol/Drug Maternal Grandmother ALCOHOLIC Alzheimer's Disease Maternal Grandmother Arthritis Maternal Grandmother Colon Cancer Maternal Grandmother Psychiatry Maternal Grandmother Alcohol/Drug Maternal Grandfather ALCOHOLIC Stroke Maternal Grandfather Alcohol/Drug Paternal Grandmother ALCOHOLIC Heart Paternal Grandmother CHF Alcohol/Drug Paternal Grandfather ALCOHOLIC Heart Paternal Grandfather OK Stroke Paternal Grandfather Alzheimer's Disease Paternal Grandfather Diabetes Maternal Uncle Colon Cancer Maternal Uncle Cancer Maternal Uncle pancreatic cancer Breast Cancer Paternal Aunt Diabetes Paternal Aunt PAUNT X 5 Diabetes Paternal Uncle Autism Other Anxiety disorder Other Tourette syndrome Other REVIEW OF SYMPTOMS: The review of systems data was entered by the nurse and reviewed by me There are no exam notes on file for this visit. She denies chest pain; she notes occasional shortness of breath with exertion PHYSICAL EXAMINATION: General: The patient is 43 year old female, well nourished, well hydrated in no acute distress. The patient is oriented to time, place, and person. VITALS: Blood pressure 158/77, pulse 97, resp. rate 16, height 167.6 cm (5' 6), weight 124.7 kg (275 lb), last menstrual period 11/24/2023, SpO2 99%. Head: Normal cephalic, atraumatic Eyes: pupils are equally round, sclera are clear/anicteric, wearing glasses Neck is supple with no tracheal deviation Cardiac: normal heart sounds, regular Respiratory: Normal respiratory excursion and pattern. Abdominal exam: benign Extremities: no clubbing, cyanosis or edema. Neuro: non focal Psych: normal mood Assessment IMPRESSION: screening for colon cancer via colonoscopy PLAN: I have discussed the above with the patient. I have offered colonoscopy , possible biopsies I have explained the procedure to the patient. I have counseled the patient as to the risks of the procedure, including but not limited to: infection, bleeding, injury to any intrabdominal organs such as liver/spleen, perforation of the GI tract, inability to complete the procedure, complications of anesthesia, etc. - the patient understands. The patient wishes to proceed. I have answered all questions to the patient s satisfaction and the patient has no further questions. My clinic staff has educated the patient as to the colon cleansing regimen and I have prescribed Golytely for the colon cleansing solution. The patient will be scheduled for the procedure at [facility]. Diagnoses: (Z12.11) Special screening for malignant neoplasms, colon Medical Decision Making: Risk: Low: Low risk from testing/treatment Medical Decision Making Level: 2 - Straightforward Seema Guillory MD documented in this encounter [facility] 12-07-2023 Note HNO ID: [id number] Author: SEEMA GUILLORY MD Service: ? Author Type: Physician Type: Progress Notes Filed: 12/08/2023 15:32 Note Text: HISTORY AND PHYSICAL Lyndon Burroughs 1980 REFERRING PHYSICIAN: Tico Root APRN.BATCH AND FURNACE MANAGER CHIEF COMPLAINT: No chief complaint on file. HPI: The patient is a 43 year old female referred for endoscopy. Lyndon notes presents for screening for colon cancer via colonoscopy The patient denies blood in stools, denies abdominal pain, and denies changes in bowel habits. Patient's mother had appendiceal cancer, diagnosed in her late 60s and has passed due to this. Her maternal grandmother had colon cancer She denies previous colonoscopy. She did have previous EGD at age 17. PAST MEDICAL HISTORY Diagnosis Date ASCUS with positive high risk HPV cervical 05/2017 Mood disorder (HCC) [facility] Myopia, bilateral 12/23/2017 Obsessive-compulsive disorders Other specified anemias PMH - PAST MEDICAL HISTORY OF HIATAL HERNIA Psychosis (HCC) Dr. Rocha at [facility] PAST SURGICAL HISTORY Procedure Laterality Date ENDOSCOPY PROC Current Outpatient Medications Medication Sig buPROPion (WELLBUTRIN) 75 mg tablet Take 75 mg by mouth once daily. amphetamine-dextroamphetamine (ADDERALL) 15 mg tablet Take 15 mg by mouth two times a day. Norethindrone, Contraceptive, (ORTHO MICRONOR) 0.35 mg tablet Take 1 tablet by mouth once daily. MULTIVITAMIN ORAL Take by mouth once daily. No current facility-administered medications for this visit. ALLERGIES: Latex and Tomatoes PERSONAL HISTORY: Social History Tobacco Use Smoking status: Never Smokeless tobacco: Never Vaping Use Vaping status: Never Used Substance Use Topics Alcohol use: No Drug use: No FAMILY HISTORY Problem Relation Age of Onset Psychiatry Mother DEPRESSION,SUICIDAL IDEATION Cancer Mother cancer in the appendix Leukemia Mother Hypertension Father Heart Father [place] Psychiatry Father DEPRESSION, bipolar COPD Father smoked from age 12 other (CHF) Father Diabetes Sister Depression Sister other (HTN) Sister Depression Brother other (htn) Brother Diabetes Brother Bipolar disorder Brother Psychiatry Brother Schizoaffective Alcohol/Drug Maternal Grandmother ALCOHOLIC Alzheimer's Disease Maternal Grandmother Arthritis Maternal Grandmother Colon Cancer Maternal Grandmother Psychiatry Maternal Grandmother Alcohol/Drug Maternal Grandfather ALCOHOLIC Stroke Maternal Grandfather Alcohol/Drug Paternal Grandmother ALCOHOLIC Heart Paternal Grandmother CHF Alcohol/Drug Paternal Grandfather ALCOHOLIC Heart Paternal Grandfather OK Stroke Paternal Grandfather Alzheimer's Disease Paternal Grandfather Diabetes Maternal Uncle Colon Cancer Maternal Uncle Cancer Maternal Uncle pancreatic cancer Breast Cancer Paternal Aunt Diabetes Paternal Aunt PAUNT X 5 Diabetes Paternal Uncle Autism Other Anxiety disorder Other Tourette syndrome Other REVIEW OF SYMPTOMS: The review of systems data was entered by the nurse and reviewed by me There are no exam notes on file for this visit. She denies chest pain; she notes occasional shortness of breath with exertion PHYSICAL EXAMINATION: General: The patient is 43 year old female, well nourished, well hydrated in no acute distress. The patient is oriented to time, place, and person. VITALS: Blood pressure 158/77, pulse 97, resp. rate 16, height 167.6 cm (5' 6), weight 124.7 kg (275 lb), last menstrual period 11/24/2023, SpO2 99%. Head: Normal cephalic, atraumatic Eyes: pupils are equally round, sclera are clear/anicteric, wearing glasses Neck is supple with no tracheal deviation Cardiac: normal heart sounds, regular Respiratory: Normal respiratory excursion and pattern. Abdominal exam: benign Extremities: no clubbing, cyanosis or edema. Neuro: non focal Psych: normal mood Assessment IMPRESSION: screening for colon cancer via colonoscopy PLAN: I have discussed the above with the patient. I have offered colonoscopy , possible biopsies I have explained the procedure to the patient. I have counseled the patient as to the risks of the procedure, including but not limited to: infection, bleeding, injury to any intrabdominal organs such as liver/spleen, perforation of the GI tract, inability to complete the procedure, complications of anesthesia, etc. - the patient understands. The patient wishes to proceed. I have answered all questions to the patient?s satisfaction and the patient has no further questions. My clinic staff has educated the patient as to the colon cleansing regimen and I have prescribed Golytely for the colon cleansing solution. The patient will be scheduled for the procedure at [facility]. Diagnoses: (Z12.11) Special screening for malignant neoplasms, colon Medical Decision Making: Risk: Low: Low risk from testing (more content not included)... [facility] 12-04-2023 Telephone encounter Note Sw received consult requesting Sw reach out to patient to discuss financial assistance needs. Sw left message for patient to return Sw call. Sw will also send My Chart message as well to see if that is an easier way to connect. [facility] 12-03-2023 Instructions Tico Root APRN.LAURA - 12/03/2023 8:48 AM EDT Images from the original note were not included. COLONOSCOPY BOWEL PREPARATION INSTRUCTIONS MiraLAX Your doctor has scheduled you for a colonoscopy. To have a successful colonoscopy, you must have a clean colon, that is empty. A clean colon allows your doctor to see the entire colon & diagnose issues like polyps or cancer. For doctors, a clean colon is like driving on a deysi day; a dirty colon like driving in a storm. It is very important that you follow these instructions exactly, or your colonoscopy may not be as effective, could be canceled, and you may need to do the bowel prep and colonoscopy again. TRANSPORTATION REQUIREMENTS You are receiving IV sedation. For your safety, a responsible adult escort must accompany you to and from your procedure: Your adult escort MUST be present with you at check-in for your colonoscopy. Your adult escort MUST remain in the endoscopy area until you are discharged. Your adult escort MUST transport you home once you are discharged. You are NOT allowed to operate any form of transportation (i.e. drive a car, bicycle, etc) or leave the Endoscopy Center ALONE. It is not safe to do so. If you cannot meet these requirements, your procedure will be canceled. MEDICATION REQUIREMENTS For your safety, certain medications will need to be stopped or adjusted before you can have your procedure: BLOOD THINNERS: If you take blood thinners, such as Coumadin (warfarin), Plavix (clopidogrel), Ticlid (ticlopidine hydrochloride), Agrylin (anagrelide), Xarelto (Rivaroxaban), Pradaxa (Dabigatran), Eliquis (Apixaban), or Effient (Prasugrel), contact the physician who is prescribing these medications at least 2 weeks prior to your procedure to discuss any necessary adjustments. DIABETES: If you take medications for diabetes, your dosage may need to be adjusted. If you are being treated for diabetes with insulin, diabetic pills, or other injectable medications do not take your REGULAR dose after midnight on the day of your procedure. If you are taking any other types of insulin such as Lantus, Humalog, NPH (long-acting insulin), or 70/30 insulin, take half your normal dose the day before your procedure. DIABETES/WEIGHT MANAGEMENT: If you take medications for weight-loss, your dosage may need to be adjusted Contact the doctor who prescribes this medication for further instructions. If you take medications for weight-loss like semaglutide (Ozempic, Wegovy, Rybelsus), dulaglutide (Trulicity), liraglutide (Victoza, Saxenda), exenatide (Byetta, Bydureon), or lixisenatide (Adylyxin), stop your medication 1 week prior to your procedure. If you take medications like canagliflozin (Invokana), dapagliflozin (Farxiga, Forxiga), empagliflozin (Jardiance), stop your medication 3 days prior to your procedure. If you take ertugliflozin (Steglatro) stop your medication 4 days prior to your procedure. IRON: If you take iron pills, STOP them 1 week BEFORE your procedure, may resume after. OTHER MEDS: May take all other medications (including aspirin, antibiotics, water pills / diuretics like Lasix or Metolozone, blood pressure meds, etc.) at their usual scheduled time with water. DIET REQUIREMENTS The day before your colonoscopy, you may have a clear liquid diet (see below). The day of your colonoscopy, you may continue a clear liquid diet until 3 hours before your colonoscopy. Within 3 hours of your colonoscopy, take only any medications (as above) with a sip of water. Clear Liquid Diet Broth (chicken, beef or vegetable broth or bullion. Just the broth, no solids). Water Coffee or Tea (NO milk or creamer), but sugar and sugar substitutes are allowed. Clear liquids including clear, yellow, green, blue (NO red, NO orange, NO purple) Sodas / soft drinks; Gatorade or other sports drinks Fruit juice (strained; no-pulp); Christos-Aid or flavored drinks Plain Jell-O or other gelatins Popsicles or hard candy Bowel prep can work differently from person to person. Some people's bowels move slowly and they may need different instructions. Please see your doctor in office or virtually for personalized bowel prep instructions if you have: BOWEL PREPARATION (MIRALAX/GATORADE) Split Dosing Bowel Prep: This means drinking your bowel prep in two doses. Split dosing helps clean your colon better and makes it less likely that your procedure will be canceled. You will need to purchase the following (no prescriptions are needed): 64 ounces Gatorade, Propel, Crystal Lite or other noncarbonated clear liquid sports drink (NOT red, orange, or purple). Diabetic patients buy sugar-free, e.g. Gatorade G2 4 Dulcolax laxative tablets containing 5mg bisacodyl each (do not buy the stool softener) 8.3 oz MiraLAX (238g) powder or generic polyethylene glycol 3350 (find in laxative aisle) The day before your colonoscopy mix 64 oz of the sports drink with 8.3 oz MiraLAX (238 g) in a pitcher. Stir or shake until MiraLAX completely dissolved. Chill if desired. On the evening before your colonoscopy: 5 PM take 4 Dulcolax laxative tablets with water by mouth. 6 PM drink the first half of the Gatorade/MiraLAX solution Drink one 8-ounce glass every 15 minutes. Six hours before your colonoscopy, drink the second half of the solution. Drink one 8-ounce glass every 15 minutes. You may continue a clear liquid diet until 3 hours before your colonoscopy. Bowel prep can work differently from person to person. Some people's bowels move slowly and they may need different instructions. Please see your doctor in office or virtually for personalized bowel prep instructions if you have: Medical condition that needs special accommodations Had a poor bowel prep results or failed bowel prep attempts in the past. Had difficulty with anesthesia during the procedure. FREQUENTLY ASKED QUESTIONS Q: What if I suffer from constipation? A: Recommend taking extra laxatives to resolve your constipation days prior to entering the bowel prep day. Q: What if have had prior poor preps results in past? A: Contact your physician as you will likely need additional bowel prep instructions. Q: What if I have motility issues like Parkinson's, MS (multiple sclerosis), wheelchair dependent, etc.? or on medications that slow colonic transit times (narcotics, gabapentin, anticholinergic medications etc.) A: Contact your physician as you will likely need extra time and additional laxatives to complete your bowel prep. Q: What if I cannot drink large volume of liquid? A: Start your prep 2-3 hours earlier to allow yourself more time to complete the entire prep. Q: What if I had bariatric surgery? Do I still have to complete the entire prep? A: Yes, gastric bypass surgery involves the stomach & small bowel. You may need to drink smaller amounts, slower (may need more time to complete your bowel prep). Gastric bypass does not alter the length of your colon so you will need to complete the entire bowel prep, it may just take longer time to complete it. Q: What if I am on dialysis? A: Please consult your general operations agent prior to scheduling to get instructions pertinent to you. In general, dialysis patients take the Caring in Placeytely bowel prep and have the procedure same day of their dialysis (colonoscopy in AM, dialysis in PM). Q: How do I know if something is considered as clear liquid diet? A: If you can pour it in a glass and you can see through it, it is considered clear liquid Q: Can I eat nuts, seeds, beans, popcorn, dried fruits, vegetables & fruits that have skin peel? A: No, you will need to not eat these items starting 3 days prior to procedure. Q: Can I take Uber/Lyft/taxi/bus home? A: An adult MUST be present with you at check-in for your colonoscopy and remain in the endoscopy area until you are discharged. You can take Uber home only if this adult escort is with you at check in, remain in the endoscopy area until you are discharged, and takes the Uber with you to home. Q: Can I sleep it off here and drive myself home? A: No, you must have an adult with you at time of procedure check in, remain in the endoscopy center during your procedure, and drive you home. You cannot drive a vehicle after your procedure the rest of the day. Q: What if I can't finish my bowel prep? A: If you cannot complete your entire bowel prep, there is high likelihood that your colonoscopy will need to be rescheduled due to inadequate prep quality. Miralax/Dulcolax Bowel Prep For this bowel preparation, you will need to purchase the following medications at any pharmacy: Over the counter Miralax (generic name is polyethylene glycol) 8.3 oz or 238 grams Four (4) Dulcolax (generic name is Bisacodyl) tablets 3 days prior to your procedure, you need to be on a low fiber diet (Such as popcorn, beans, seeds, nuts, salad and raw vegetables, corn, fresh and dried fruit and multi-grain bread) YOU MUST BE ON CLEAR LIQUIDS FOR 2 FULL DAYS PRIOR TO YOUR COLONOSCOPY Day one which would be two days before your colonoscopy, you will need to be on clear liquids all day. You may have coffee or tea-black only (no cream), clear broths (beef, chicken or vegetable), apple juice, white grape juice, pop, Gatorade, Powerade, lemonade, Jello, popsicles, Christos-aid, and water-But nothing red or dark purple in color and no dairy products, tomato or orange juices. Day two which would be the day before your colonoscopy continue clear liquids all day as above. And follow the instructions below: 8:00 AM - Mix the Miralax with 64 oz of Gatorade or another clear liquid of choice and place in refrigerator. Most people say the drink is better cold. 4:00 PM - Take 2 of the Dulcolax tablets with 8 oz of water. 6:00 PM - Start to drink the Miralax mixture. You must finish it by midnight. 8:00 PM - Take the other 2 Dulcolax tablets with 8 oz of water. You may continue to drink clear liquids while you are taking your prep and after you finish it as long as it is before midnight. Drink lots of fluids so you don t become dehydrated. Nothing to drink after midnight the night before the procedure unless you are instructed differently by the physician or nurses. Please remember to take your normal medications the morning of the procedure with a small sip of water especially your blood pressure medications. If you are diabetic, you need to contact your physician about how to take your diabetic medications and/or insulin during the prepping period and the day of your procedure. Any questions please call: Dr. Guillory or Dr. Mckeon [phone] [facility] nurses [phone] documented in this encounter [facility] 12-03-2023 History of Present illness Narrative SUBJECTIVE: Influenza Vaccine(1) due on 10/11/2023 Covid-19 Vaccine( season) due on 10/11/2023 Colorectal Cancer Screening Never done Mammogram Screening due on 05/10/2024 HPI Lyndon Burroughs is a 43 year old female. PMH significant for ACTIVE PROBLEM LIST Generalized Anxiety Disorder Major Depressive Disorder in Partial Remission (Hcc) Morbid Obesity Due to Excess Calories (Hcc) Adhd (Attention Deficit Hyperactivity Disorder), Combined Type Social Anxiety Disorder Personality Traits Affecting Medical Condition Dysthymia Chronic Bilateral Low Back Pain Without Sciatica Autism Spectrum Disorder Mixed Obsessional Thoughts and Acts PCP: Errol Luu MD Presents today for follow-up visit. She continues to have significant amounts of stress. Continue to follow-up with behavioral health. She reports son currently is ill with feeling fatigued. She reports no recent illness herself. No longer taking phentermine for weight loss. Notes try to eat healthy. Limited exercise due to diffuse pain and fibromyalgia. Since last here she had a July 17, 2023 appointment for impingement of left shoulder with orthopedics. She underwent a joint injection was referred to physical therapy. She had a October 22, 2023 visit with neurology regarding POTS. Impression was fibromyalgia depression anxiety OCD ADHD autism chronic pain syndrome. She was started on a trial of gabapentin. Followed by Sylvain Garay APRN behavioral health. Today reports periumbical discomfort which is constant mild at rest moderate with movement. Pulling sensation is noted. Notes increased discomfort when lifting litter box wearing tight pants. Not increased with coughing or bearing down. Has not felt anything abnormal in the area. Pain is present left side of the umbilicus and a bit lateral to this on the left side as well. Heartburn: no Reflux: no Abdominal pain: LLQ, periumbilical Nausea: no Vomiting: no Alternating diarrhea and constipation, chronic. Daily BM BRBPR: no Black tarry:no She reports both her sister and mother had thyroid disease. Mother had colonic polyps. Paternal grandmother had colon cancer. Review of Systems Constitutional: Positive for unexpected weight change. Musculoskeletal: Positive for arthralgias and back pain. Psychiatric/Behavioral: Positive for decreased concentration, dysphoric mood and sleep disturbance. The patient is nervous/anxious. Objective BP 129/84 Pulse 86 Resp 16 Wt 123.8 kg (272 lb 14.9 oz) LMP 06/21/2023 (Exact Date) BMI 44.05 kg/m Physical Exam Vitals and nursing note reviewed. Constitutional: Appearance: Normal appearance. HENT: Head: Normocephalic and atraumatic. Eyes: Conjunctiva/sclera: Conjunctivae normal. Cardiovascular: Rate and Rhythm: Normal rate and regular rhythm. Pulses: Carotid pulses are 2+ on the right side and 2+ on the left side. Radial pulses are 2+ on the right side and 2+ on the left side. Heart sounds: Normal heart sounds. Pulmonary: Effort: Pulmonary effort is normal. Breath sounds: Normal breath sounds. Abdominal: General: Bowel sounds are normal. Palpations: Abdomen is soft. Musculoskeletal: Right lower leg: No edema. Left lower leg: No edema. Skin: General: Skin is warm and dry. Neurological: General: No focal deficit present. Mental Status: She is alert and oriented to person, place, and time. ALLERGIES Allergen Reactions Latex Tomatoes Medications buPROPion (WELLBUTRIN) 75 mg tablet Take 75 mg by mouth once daily. amphetamine-dextroamphetamine (ADDERALL) 15 mg tablet Take 15 mg by mouth two times a day. Norethindrone, Contraceptive, (ORTHO MICRONOR) 0.35 mg tablet Take 1 tablet by mouth once daily. MULTIVITAMIN ORAL Take by mouth once daily. PAST MEDICAL HISTORY Diagnosis Date ASCUS with positive high risk HPV cervical 05/2017 Mood disorder (HCC) counseling center Myopia, bilateral 12/23/2017 Obsessive-compulsive disorders Other specified anemias PMH - PAST MEDICAL HISTORY OF HIATAL HERNIA Psychosis (HCC) Dr. Rocha at counseling center Social History Tobacco Use Smoking status: Never Smokeless tobacco: Never Vaping Use Vaping status: Never Used Substance Use Topics Alcohol use: No Drug use: No Latest Ref Rng 11/01/2022 01/09/2023 06/26/2023 11/26/2023 WBC 3.70 - 11.00 k/uL 6.20 12.18 (H) RBC 3.90 - 5.20 m/uL 4.86 5.23 (H) Hemoglobin 11.5 - 15.5 g/dL 13.6 14.4 Hematocrit 36.0 - 46.0 % 43.7 45.6 MCV 80.0 - 100.0 fL 89.9 87.2 MCH 26.0 - 34.0 pg 28.0 27.5 MCHC 30.5 - 36.0 g/dL 31.1 31.6 RDW-CV 11.5 - 15.0 % 13.2 14.3 Platelet Count 150 - 400 k/uL 287 284 MPV 9.0 - 12.7 fL 11.0 11.6 Neut% % 62.0 64.9 Abs Neut (ANC) 1.45 - 7.50 k/uL 3.84 7.90 (H) Lymph% % 30.8 28.8 Abs Lymph 1.00 - 4.00 k/uL 1.91 3.51 Marshall% % 4.8 5.1 Abs Marshall <0.87 k/uL 0.30 0.62 Eosin% % 1.3 0.5 Abs Eosin <0.46 k/uL 0.08 0.06 Baso% % 0.6 0.5 Abs Baso <0.11 k/uL 0.04 0.06 Immature Gran % % 0.5 0.2 IMMATURE GRANS (ABS) <0.10 k/uL 0.03 0.03 NRBC /100 WBC 0.0 0.0 Absolute nRBC <0.01 k/uL <0.01 <0.01 DTYPE Auto Auto Protein, Total 6.3 - 8.0 g/dL 7.2 Albumin 3.9 - 4.9 g/dL 4.3 Calcium 8.5 - 10.2 mg/dL 9.8 Bilirubin, Total 0.2 - 1.3 mg/dL 0.3 Alkaline Phosphatase 34 - 123 U/L 81 AST 13 - 35 U/L 15 ALT 7 - 38 U/L 20 Glucose 74 - 99 mg/dL 104 (H) BUN 7 - 21 mg/dL 13 Creatinine 0.58 - 0.96 mg/dL 0.56 (L) Sodium 136 - 144 mmol/L 138 Potassium 3.7 - 5.1 mmol/L 4.3 Chloride 97 - 105 mmol/L 102 CO2 22 - 30 mmol/L 25 Anion Gap 9 - 18 mmol/L 11 eGFR >=60 mL/min/1.73m 116 Phencyclidine Negative Negative Benzodiazepines Urine Negative Negative Cocaine Urine Negative Negative Amphetamines Negative Negative Cannabinoids, Urine Negative Negative Opiates Negative Negative Barbiturates Negative Negative Ethanol, Urine <11 mg/dL <11 Oxycodone, Urine Negative Negative Cholesterol, Total <200 mg/dL 185 Triglyceride <150 mg/dL 112 HDL Cholesterol >39 mg/dL 40 Non HDL Cholesterol <130 mg/dL 145 (H) Fasting Time hrs 13 VLDL Cholesterol <30 mg/dL 22 TC:HDL Ratio <5.10 4.63 LDL Cholesterol <100 mg/dL 123 (H) LDL:HDL Ratio <2.54 3.08 (H) Iron 41 - 186 ug/dL 45 TIBC 232 - 386 ug/dL 321 Transferrin Saturation 15.0 - 57.0 % 14.0 (L) HIV 12 Combo (Ag/Ab) Nonreactive Nonreactive HIV 1/2 Ab -- HIV Interpretation -- Hemoglobin A1C 4.3 - 5.6 % 5.0 Estimated Average Glucose mg/dL 97 TSH 0.270 - 4.200 mIU/L 1.820 2.270 Ferritin 14.7 - 205.1 ng/mL 53.3 Vitamin D 25 Hydroxy 31.0 - 80.0 ng/mL 61.1 WSR 0 - 20 mm/hr 15 Rheumatoid Factor <16 IU/mL <10 KYLE Negative Negative CRP <0.9 mg/dL 1.4 (H) Glucose, Fasting 74 - 99 mg/dL 92 Hep C Antibody IA Negative Negative Hep B Surface Ag Negative Negative Free T4 0.9 - 1.7 ng/dL 1.1 DATE OF EXAM: Jan 07 2016 11:27AM [facility] [id number] - CT ABDOMEN W IVCON / PROCEDURE REASON: Left upper quadrant abdominal swelling, mass and lump * * * * Physician Interpretation * * * * RESULT: EXAMINATION: CT ABDOMEN WITH IV CONTRAST HISTORY: Left upper quadrant discomfort and distention TECHNIQUE: CT of the abdomen was performed using standard technique. M: CTAP Contrast: IV: 145 ml of Omnipaque 300 Oral: 900 ml of 50ML Omnipaque [address] Radiation dose: Integrated Dose-length product (DLP) for this visit = 721 mGy*cm. CT Dose Reduction Employed: Yes COMPARISON: None. RESULT: Liver: No mass. Mild fatty change Biliary: No bile duct dilation. Spleen: No mass. No splenomegaly. Pancreas: No mass or duct dilation. No changes of acute, interstitial, edematous pancreatitis Adrenals: No mass. Kidneys: 4 mm posterior, mid LEFT renal benign-appearing low-attenuation lesion; no stones or hydronephrosis GI tract: No dilation or wall thickening. No colonic diverticulosis Lymph nodes: No abdominal lymphadenopathy Mesentery/Peritoneum: No ascites or mass. Vasculature: The celiac axis and SMA are patent. The portal vein and branches, splenic vein, SMV, and hepatic veins are patent. Bones/Soft Tissues: Small periumbilical hernia containing fat; no LEFT flank hernia; no significant bony abnormalities Lung Bases: Unremarkable. Impression IMPRESSION: NO CAUSE FOR LEFT UPPER QUADRANT DISCOMFORT IDENTIFIED Note: No imaging follow-up is recommended for any of the following incidentally detected lesion(s): liver lesions less than or equal to 0.5 cm, cystic kidney lesions less than 1.0 cm, or adrenal lesions less than or equal to 1.0 cm, in this adult patient (18 years or older). ACR Whitepaper: Managing Incidental Findings on Abdominal CT. JACR 2010; 7:754 ASSESSMENT/PLAN: 1. Routine medical exam - ICD9: V70.0, ICD10: Z00.00 (primary diagnosis) - Counseled on healthy diet and regular exercise - Colorectal cancer screening recommended - agrees to Colonoscopy - Mammogram ordered - exam recommended once yearly - Follow up for annual exam in one year 2. Encounter for immunization - ICD9: V03.89, ICD10: Z23 - INFLUENZA VACCINE, AGE 6MO-64YR, TRIVALENT (AFLURIA, FLULAVAL, FLUVIRIN, FLUZONE) - Visiogen-Flipter COVID-19 VACCINE AGE 12+ YR (COMIRNATY) - HEP B VACCINE, 3-DOSE, AGE 20+ YR (ENGERIX-B, RECOMBIVAX HB) - HEP B VACCINE, 3-DOSE, AGE 20+ YR (ENGERIX-B, RECOMBIVAX HB) - HEP B VACCINE, 3-DOSE, AGE 20+ YR (ENGERIX-B, RECOMBIVAX HB) 3. Screening for colon cancer - ICD9: V76.51, ICD10: Z12.11 4. Special screening for malignant neoplasms, colon - ICD9: V76.51, ICD10: Z12.11 - COLONOSCOPY SCREENING - CONSULT TO GENERAL SURGERY 5. Left lower quadrant abdominal pain - ICD9: 789.04, ICD10: R10.32 6. Periumbilical pain - ICD9: 789.05, ICD10: R10.33 She has a known periumbilical hernia now with constant pain on the left side of her abdomen periumbilical region and a bit lateral to this. Last CT was completed 2015. Feels like there is progression in discomfort now which is constant and mild to moderate in intensity. - CT ABD/PEL WO IVCON - ENTERIC CONTRAST (RADIOLOGY PROCEDURE) 7. Periumbilical hernia - ICD9: 553.1, ICD10: K42.9 She notes increased periumbilical pain on the left side which is constant now - CT ABD/PEL WO IVCON - ENTERIC CONTRAST (RADIOLOGY PROCEDURE) 8. Inadequate community resources - ICD9: V60.2, ICD10: Z75.4 - PRIMARY CARE SOCIAL WORK CONSULT 9. Shortness of breath on exertion - ICD9: 786.05, ICD10: R06.02 She is undergoing evaluation for POTS, upcoming echocardiogram, currently wearing ZIO 10. Family history of colon cancer - ICD9: V16.0, ICD10: Z80.0 11. Family history of thyroid disease - ICD9: V18.19, ICD10: Z83.49 - THYROID PEROXIDASE ANTIBODY 12. Family history of diabetes mellitus - ICD9: V18.0, ICD10: Z83.3 - COMPREHENSIVE METABOLIC PANEL Labs today. Colonoscopy to be completed after POTS evaluation. She prefers a Miralax prep. Endorse portion control and daily exercise as tolerated, consider water therapy/exercises or chair exercises. 6 mo.dexu MD Tico Avina APRN.BATCH AND FURNACE MANAGER Medical Decision Making: Medical Decision Making Level: 1 - N/A To be completed by LIP: Reports some SOBOE with one flight of stairs. Undergoing evaluation for POTS Patient appropriate for Open Access Colonoscopy: No: NOT appropriate for Open Access Procedure documented in this encounter [facility] 12-03-2023 Note HNO ID: [id number] Author: TICO ROOT APRN.BATCH AND FURNACE MANAGER Service: ? Author Type: Nurse Specialist Type: Progress Notes Filed: 12/03/2023 15:51 Note Text: SUBJECTIVE: Influenza Vaccine(1) due on 10/11/2023 Covid-19 Vaccine( season) due on 10/11/2023 Colorectal Cancer Screening Never done Mammogram Screening due on 05/10/2024 HPI Lyndon Burroughs is a 43 year old female. PMH significant for ACTIVE PROBLEM LIST Generalized Anxiety Disorder Major Depressive Disorder in Partial Remission (Hcc) Morbid Obesity Due to Excess Calories (Hcc) Adhd (Attention Deficit Hyperactivity Disorder), Combined Type Social Anxiety Disorder Personality Traits Affecting Medical Condition Dysthymia Chronic Bilateral Low Back Pain Without Sciatica Autism Spectrum Disorder Mixed Obsessional Thoughts and Acts PCP: Errol Luu MD Presents today for follow-up visit. She continues to have significant amounts of stress. Continue to follow-up with behavioral health. She reports son currently is ill with feeling fatigued. She reports no recent illness herself. No longer taking phentermine for weight loss. Notes try to eat healthy. Limited exercise due to diffuse pain and fibromyalgia. Since last here she had a July 17, 2023 appointment for impingement of left shoulder with orthopedics. She underwent a joint injection was referred to physical therapy. She had a October 22, 2023 visit with neurology regarding POTS. Impression was fibromyalgia depression anxiety OCD ADHD autism chronic pain syndrome. She was started on a trial of gabapentin. Followed by Sylvain Garay APRN behavioral health. Today reports periumbical discomfort which is constant mild at rest moderate with movement. Pulling sensation is noted. Notes increased discomfort when lifting litter box wearing tight pants. Not increased with coughing or bearing down. Has not felt anything abnormal in the area. Pain is present left side of the umbilicus and a bit lateral to this on the left side as well. Heartburn: no Reflux: no Abdominal pain: LLQ, periumbilical Nausea: no Vomiting: no Alternating diarrhea and constipation, chronic. Daily BM BRBPR: no Black tarry:no She reports both her sister and mother had thyroid disease. Mother had colonic polyps. Paternal grandmother had colon cancer. Review of Systems Constitutional: Positive for unexpected weight change. Musculoskeletal: Positive for arthralgias and back pain. Psychiatric/Behavioral: Positive for decreased concentration, dysphoric mood and sleep disturbance. The patient is nervous/anxious. Objective BP 129/84 Pulse 86 Resp 16 Wt 123.8 kg (272 lb 14.9 oz) LMP 06/21/2023 (Exact Date) BMI 44.05 kg/m? Physical Exam Vitals and nursing note reviewed. Constitutional: Appearance: Normal appearance. HENT: Head: Normocephalic and atraumatic. Eyes: Conjunctiva/sclera: Conjunctivae normal. Cardiovascular: Rate and Rhythm: Normal rate and regular rhythm. Pulses: Carotid pulses are 2+ on the right side and 2+ on the left side. Radial pulses are 2+ on the right side and 2+ on the left side. Heart sounds: Normal heart sounds. Pulmonary: Effort: Pulmonary effort is normal. Breath sounds: Normal breath sounds. Abdominal: General: Bowel sounds are normal. Palpations: Abdomen is soft. Musculoskeletal: Right lower leg: No edema. Left lower leg: No edema. Skin: General: Skin is warm and dry. Neurological: General: No focal deficit present. Mental Status: She is alert and oriented to person, place, and time. ALLERGIES Allergen Reactions Latex Tomatoes Medications buPROPion (WELLBUTRIN) 75 mg tablet Take 75 mg by mouth once daily. amphetamine-dextroamphetamine (ADDERALL) 15 mg tablet Take 15 mg by mouth two times a day. Norethindrone, Contraceptive, (ORTHO MICRONOR) 0.35 mg tablet Take 1 tablet by mouth once daily. MULTIVITAMIN ORAL Take by mouth once daily. PAST MEDICAL HISTORY Diagnosis Date ASCUS with positive high risk HPV cervical 05/2017 Mood disorder (HCC) counseling center Myopia, bilateral 12/23/2017 Obsessive-compulsive disorders Other specified anemias PMH - PAST MEDICAL HISTORY OF HIATAL HERNIA Psychosis (HCC) Dr. Rocha at [facility] center Social History Tobacco Use Smoking status: Never Smokeless tobacco: Never Vaping Use Vaping status: Never Used Substance Use Topics Alcohol use: No Drug use: No Latest Ref Rng 11/01/2022 01/09/2023 06/26/2023 11/26/2023 WBC 3.70 - 11.00 k/uL 6.20 12.18 (H) RBC 3.90 - 5.20 m/uL 4.86 5.23 (H) Hemoglobin 11.5 - 15.5 g/dL 13.6 14.4 Hematocrit 36.0 - 46.0 % 43.7 45.6 MCV 80.0 - 100.0 fL 89.9 87.2 MCH 26.0 - 34.0 pg 28.0 27.5 MCHC 30.5 - 36.0 g/dL 31.1 31.6 RDW-CV 11.5 - 15.0 % 13.2 14.3 Platelet Count 150 - 400 k/uL 287 284 MPV 9.0 - 12.7 fL 11.0 11.6 Neut% % 62.0 64.9 Abs Neut (ANC) 1.45 - 7.50 k/uL 3.84 7.90 (more content not included)... [facility] 11-27-2023 Telephone encounter Note Last OV: 10/22/2023 Next OV: 01/21/2024 [facility] 11-27-2023 Miscellaneous Notes Last OV: 10/22/2023 Next OV: 01/21/2024 documented in this encounter [facility] 11-26-2023 Instructions Igor Blair APRN.CHROME CLEANER - 11/26/2023 11:11 AM EDT 1) Labs 2) bus driver/monitor 3) Echo 4) Autonomic reflex w/ tilt 5) QSART 6) Consult to ENT for spinning dizziness, ear symptoms 7) Vestibular PT - can complete locally --- Conservative Measures: Make all postural changes from lying to sitting or sitting to standing slowly. Drink to 2.0 -2.5 L of fluids per day. With bad symptoms, drink 500 cc of water quickly. This will result in an increased blood pressure within 5 minutes of drinking the water. The effect will last up to one hour and may improve orthostatic intolerance. Avoid large meals which can cause low blood pressure during digestion. It is better to eat smaller meals more often than three large meals. Avoid alcohol. Alcohol and cause blood to pool in the legs which may worsen low blood pressure reactions when standing. Avoid excessive caffeine intake as it may increase urine production and reduce blood volume. Perform lower extremity exercises to improve strength of the leg muscles. This will help prevent blood from a pooling in the legs when standing and walking. Preferred exercises are walking, squatting or stationery bicycling. An increased exercise duration by weekly should be considered. Use custom fitted elastic support stockings. These will reduce a tendency for blood to pool in the legs when standing and may improve orthostatic intolerance. Please try 30-40 mmHg compression. Raise the head of the bed by 6 to 10 inches. The entire bed must be at an angle. Raising only the head portion of the bed at waist level or using pillows will not be effective. Raising the head of the bed will reduce urine formation overnight and there will be more volume in the circulation in the morning. Use physical counter maneuvers such as leg crossing, or leg raising and resting the leg on a chair. These maneuvers increase blood pressure and can improve orthostatic intolerance quickly and transiently. documented in this encounter [facility] 11-26-2023 History of Present illness Narrative Images from the original note were not included. [facility] for General Neurology New Patient Evaluation Consultation requested by Dr. King for an opinion regarding POTS. My final recommendations will be communicated back to the requesting physician by way of shared Medical record or letter to requesting physician via US mail. Chief Complaint/Issues: Lyndon Burroughs is a 43 year old right handed female. New patient POTS HPI: Saw pain management provider, in the office she stood up and almost fell over, said this happens a lot since childhood. States her child has POTS, sister has POTS, mother may have had POTS. Has had no prior workup done. As a kid, developed symptoms of orthostatic dizziness and imbalance, which were not daily but would occur with heat and during gym class/exertion. Symptoms currently occur daily, multiple times per day. Typically, events last 30-60 seconds, but are worsened by stress/anxiety, lack of PO intake, or warm temperatures (which may cause episodes to last as long as 5-10 minutes). Endorses feeling tired and drained after episodes. Upon standing, feels dizzy (described as room spinning), lightheaded, and sometimes sees spots. Heart races, diaphoretic, face gets warm, feels as though she is having an anxiety attack. Has palpitations, but denies SOB or CP. Has never passed out, but feels close to it sometimes. May feel okay while walking to the library (1 mile) or walking around the grocery store, but then when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 bilateral subacromial bursas Medications (Right): 40 mg triamcinolone acetonide 40 mg/mL Medications (Left): 40 mg triamcinolone acetonide 40 mg/mL Anesthetics (Right): 4 mL lidocaine (PF) 10 mg/mL (1 %) Anesthetics (Left): 4 mL lidocaine (PF) 10 mg/mL (1 %) Outcome: Tolerated well, no immediate complications Post-injection instructions were reviewed with the patient and the patient voiced understanding of these instructions. SIGN OUT All instruments, equipment, possible retained foreign bodies accounted for. [facility] 11-03-2023 History of Present illness Narrative Associated Order(s): Large Joint Arthro/Inj: bilateral subacromial bursas Post-Procedure Diagnose(s): Impingement of right shoulder; Impingement of left shoulder FOLLOW UP APPOINTMENT Chief Complaint:/Reason for Visit: Established patient; Scheduled follow up appointment for new or existing problem and/or post-surgical evaluation History of Present Illness: Lyndon Burroughs follows up today for bilateral shoulder pain. At her last visit her left shoulder was injected and she received 85% relief. Today both shoulders are bothersome. She is hoping for injections in both shoulders. ROS: Constitutional: patient denies any recent fever or significant change in weight Cardiovascular: patient denies any chest pain at rest Respiratory: patient denies any shortness of breath or cough Gastrointestinal: patient denies any current abdominal discomfort Integumentary: patient denies any recent skin changes Musculoskeletal: as noted in the HPI Neurologic: as noted in the HPI Endocrine: patient denies a current diagnosis of diabetes Hematologic/Lymphatic: patient denies any easily bleeding, any recent infection and denies any recent observable lymph node enlargement Psychologic: negative for any recent depression or anxiety issues PAST MEDICAL HISTORY Diagnosis Date ASCUS with positive high risk HPV cervical 05/2017 Mood disorder (HCC) counseling center Myopia, bilateral 12/23/2017 Obsessive-compulsive disorders Other specified anemias PMH - PAST MEDICAL HISTORY OF HIATAL HERNIA Psychosis ([facility]) Dr. Rocha at [facility] Current Outpatient Medications: buPROPion (WELLBUTRIN) 75 mg tablet amphetamine-dextroamphetamine (ADDERALL) 15 mg tablet gabapentin (NEURONTIN) 100 mg capsule metroNIDAZOLE (METROGEL) 0.75 % Topical Gel cyclobenzaprine (FLEXERIL) 10 mg tablet Norethindrone, Contraceptive, (ORTHO MICRONOR) 0.35 mg tablet MULTIVITAMIN ORAL LORazepam (ATIVAN) 0.5 mg [id number]-OREG-CAPRYL ORAL Cholecalciferol, Vitamin D3, 5,000 unit tab Problem List: reviewed and updated. Physical Exam: Constitutional: No acute distress, pleasant Resp: Non-labored breathing Vascular: No cyanosis Skin: No rashes noted Focused Musculoskeletal exam: General: Ambulates well; no other joint abnormalities noted. 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 Pulses: 2+ radial, ulnar; hands warm bilat, <2sec CR Compartments: soft and compressible Bilateral ROM is 170/50/T12. Positive impingement testing. 5/5 cuff strength. Assessment: (M25.812) Impingement of left shoulder (primary encounter diagnosis) (M25.811) Impingement of right shoulder Plan/Medical Decision Making:The nature of the problem and all indicated treatment options available were discussed in detail with the patient. Test(s)/Imaging/Referral(s): None 2. Intervention: Continue conservative treatment and bilateral CSI 3. Follow-up: as needed All of Lyndon Antonio Burroughs questions were answered today. She expressed a clear understanding of our discussion and is in agreement with the outlined treatment plan Rosie Ratliff PA-C Large Joint Arthro/Inj: bilateral subacromial bursas Informed Consent Consent Obtained: Verbal Waterfall Protocol A moment to CARE was completed. SIGN IN Personnel directly involved with the procedure wore the appropriate PPE. Special Equipment: N/A Patient/Surrogate Stated/Verified: Patient name, Relevant allergies, Date of and Intended procedure TIME OUT Intended patient and procedure match the source document(s). Consent documented and matches the intended procedure. Relevant labs, photos, and/or imaging studies have been reviewed. Correct side/site marked and visible. Medications required for procedure verified. No fire risk assessment and interventions applicable. No implant(s) inserted. 11/03/2023 10:42 AM The procedure site was prepped in the usual sterile fashion. Site: bilateral subacromial bursas Medications (Right): 40 mg triamcinolone acetonide 40 mg/mL Medications (Left): 40 mg triamcinolone acetonide 40 mg/mL Anesthetics (Right): 4 mL lidocaine (PF) 10 mg/mL (1 %) Anesthetics (Left): 4 mL lidocaine (PF) 10 mg/mL (1 %) Outcome: Tolerated well, no immediate complications Post-injection instructions were reviewed with the patient and the patient voiced understanding of these instructions. SIGN OUT All instruments, equipment, possible retained foreign bodies accounted for. documented in this encounter [facility] 10-29-2023 History of Present illness Narrative Radiology Service Progress Note PATIENT NAME: Lyndon Burroughs DATE OF SERVICE: October 29, 2023 TIME: 9:23 AM PATIENT IDENTITY VERIFICATION COMPLETED USING TWO (2) IDENTIFIERS: Name and Date of confirmed by patient verbally. FALL SCREENING: Has the patient had 2 falls in the last year or 1 fall with injury or currently using an Ambulatory Assistive Device (Walker, Cane, Wheelchair, Crutches, etc.)? No PATIENT GENDER DATA: Female. status: : No status: NO. PATIENT RELEVANT IMPLANT DATA REVIEWED: Yes PATIENT PRESENTS WITH AN IMPLANTABLE OR ATTACHED POOLING OPERATOR: No RADIOLOGY DEPARTMENT: General X-ray: Exam(s) Completed: Upper Extremity X-Ray(s): Shoulder, AP / TRUE AP / AXILLARY right PERIPHERAL IV DATA: Not applicable SIGNED BY: RT Arvind(Karina) October 29, 2023 9:23 AM documented in this encounter [facility] 10-29-2023 Note HNO ID: [id number] Author: JACOBY WALDEN RT(R) Service: Radiology Author Type: Technologist Type: Progress Notes Filed: 10/29/2023 09:34 Note Text: Radiology Service Progress Note PATIENT NAME: Lyndon Burroughs DATE OF SERVICE: October 29, 2023 TIME: 9:23 AM PATIENT IDENTITY VERIFICATION COMPLETED USING TWO (2) IDENTIFIERS: Name and Date of confirmed by patient verbally. FALL SCREENING: Has the patient had 2 falls in the last year or 1 fall with injury or currently using an Ambulatory Assistive Device (Walker, Cane, Wheelchair, Crutches, etc.)? No PATIENT GENDER DATA: Female. status: : No status: NO. PATIENT RELEVANT IMPLANT DATA REVIEWED: Yes PATIENT PRESENTS WITH AN IMPLANTABLE OR ATTACHED POOLING OPERATOR: No RADIOLOGY DEPARTMENT: General X-ray: Exam(s) Completed: Upper Extremity X-Ray(s): Shoulder, AP / TRUE AP / AXILLARY right PERIPHERAL IV DATA: Not applicable SIGNED BY: RT Arvind(R) October 29, 2023 9:[address] [facility] 10-22-2023 Note Addended by: CIERA KING on: 10/22/2023 11:43 AM Modules accepted: Orders [facility] 10-22-2023 Miscellaneous Notes Addended by: CIERA KING on: 10/22/2023 11:43 AM Modules accepted: Orders documented in this encounter [facility] 10-22-2023 Note HNO ID: [id number] Author: CIERA KING DO Service: ? 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 She was referred by Kae Lennon [address] [place] [id number]. Chief complaint: Fibromyalgia SUBJECTIVE: Patient states she has been in full body pain since puberty. Patient states she feels it the worse in her upper and low back, shooting sharp pain in her arms and legs, and tension headaches. Patient states at times when she picks thing up like her cat and stands she gets short bursts of shooting pain in her arms or legs. Patients states when simple things like her cats walking across her and hugging will cause her pain. When she exerts herself she feels like it will take two days to recover. Patient states she has tried numerous medications over the course of three decades including flexeril, tramadol, trazodone, ativan, tylenol, NSAIDs, and many OTC medications. States she has not been prescribed gabapentin, lyrica, Cymbalta, or amitriptyline. Spine Red Flag Lyndon Burroughs has no red flag symptoms. Anesthesia: Denies history of problems Schizophrenia: see psych history : No currents plans. CHF: Denies history Uncontrolled HTN: Denies history Recent OK: Denies history Arrythmias: Denies history Afib: Denies history Hyperthyroid: Denies history Aortic Stenosis: Denies history Liver Failure: Denies history Increased ICP: Denies history Average pain over the last 7 days: 07/19 Previous pain treatments: physical therapy, medications, TENS, massage, chiropractic manipulation Functional Limitations: The patient has significant absenteeism. Time spent reclining is 12 hours/day (includes time in bed, recliner, sofa, ottoman, etc.). Wellness: How would you describe your diet: Mostly cereal, sandwiches, pre-packed salads. Tries to mix in fruits/proteins. How many days a week do you exercise: 0 How many hours do you sleep a night: 6 Emotional Symptoms: include depression and anxiety The patient has loss of energy and sleep The patient denies suicidal ideation. Non-medical stresses: Include work difficulties and medical problems Family involvement: mother last November. Tearful. Has a sister that she does not talk too much. Financial Status: Stable Allergies: Reviewed in the EMR Current Medications: Reviewed in the EMR Medical History: Reviewed in the EMR Surgical History: Reviewed in the EMR Psychiatric History: Depression, anxiety, OCD, ADHD, autism. Patient states she was diagnosed with bipolar, BPD, schizoaffective disorder, but then saw a new psychiatrist when she was 39 that told he she had none of those and it was OCD, ADHD, and autism. States when she is on SSRIs she will hear and see things. Social History Tobacco Use Smoking status: Never Smokeless tobacco: Never Vaping Use Vaping status: Never Used Substance Use Topics Alcohol use: No Drug use: No Family History: Reviewed in the EMR ROS was positive for: Fatigue Pain in the legs when walking Back pain All of the other systems reviewed were negative. OBJECTIVE: PHYSICAL EXAM: GENERAL APPEARANCE: Well appearing, well-hydrated, well nourished and alert SKIN: Head, neck, trunk, and extremities dry, intact and without lesions NECK: negative findings: no asymmetry or scars BACK: TTP throughout paraspinal musculature. LUNGS: even and non-labored breathing, normal chest excursion HEART: Edema: No NEURO/PSYCH: cranial nerves 2-12 intact, speech normal, mental status intact IMAGING: No relevant imaging to review. ASSESSMENT: Fibromyalgia Depression Anxiety OCD ADHD Autism Chronic Pain Syndrome PLAN: Further evaluation: No Nutrition: Yes Therapies: No Sleep: No Worklessness: No Medications: Yes, will start trial of gabapentin 100 mg qHS with slow increase to 100 mg TID. Can consider dose increase thereafter. Interventions: No Infusions: yes 9. Pain Psychology: Yes Review, Ask, Review: Yes Follow-up: 3 months Jasen Madrid DO Attending Note I evaluated the patient and personally participated in the gerardo components. I agree with the fellow/resident's findings and plan as documented and have discussed the case and management of the patient's care with the resident. Ciera King DO I spent a total of 45 minutes on the date of the service which included preparing to see the patient, [id number] patient care, completing clinical documentation, obtaining and/or reviewing separately obtained history, performing a medically appropriate examination, counseling and educating the patient/family/caregiver, and ordering medicati (more content not included)... 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 She was referred by Kae Lennon Formerly named [facility] Kandice Fountain [facility] [id number]. Chief complaint: Fibromyalgia SUBJECTIVE: Patient states she has been in full body pain since puberty. Patient states she feels it the worse in her upper and low back, shooting sharp pain in her arms and legs, and tension headaches. Patient states at times when she picks thing up like her cat and stands she gets short bursts of shooting pain in her arms or legs. Patients states when simple things like her cats walking across her and hugging will cause her pain. When she exerts herself she feels like it will take two days to recover. Patient states she has tried numerous medications over the course of three decades including flexeril, tramadol, trazodone, ativan, tylenol, NSAIDs, and many OTC medications. States she has not been prescribed gabapentin, lyrica, Cymbalta, or amitriptyline. Spine Red Flag Lyndon Burroughs has no red flag symptoms. Anesthesia: Denies history of problems Schizophrenia: see psych history : No currents plans. CHF: Denies history Uncontrolled HTN: Denies history Recent OK: Denies history Arrythmias: Denies history Afib: Denies history Hyperthyroid: Denies history Aortic Stenosis: Denies history Liver Failure: Denies history Increased ICP: Denies history Average pain over the last 7 days: 07/19 Previous pain treatments: physical therapy, medications, TENS, massage, chiropractic manipulation Functional Limitations: The patient has significant absenteeism. Time spent reclining is 12 hours/day (includes time in bed, recliner, sofa, ottoman, etc.). Wellness: How would you describe your diet: Mostly cereal, sandwiches, pre-packed salads. Tries to mix in fruits/proteins. How many days a week do you exercise: 0 How many hours do you sleep a night: 6 Emotional Symptoms: include depression and anxiety The patient has loss of energy and sleep The patient denies suicidal ideation. Non-medical stresses: Include work difficulties and medical problems Family involvement: mother last November. Tearful. Has a sister that she does not talk too much. Financial Status: Stable Allergies: Reviewed in the EMR Current Medications: Reviewed in the EMR Medical History: Reviewed in the EMR Surgical History: Reviewed in the EMR Psychiatric History: Depression, anxiety, OCD, ADHD, autism. Patient states she was diagnosed with bipolar, BPD, schizoaffective disorder, but then saw a new psychiatrist when she was 39 that told he she had none of those and it was OCD, ADHD, and autism. States when she is on SSRIs she will hear and see things. Social History Tobacco Use Smoking status: Never Smokeless tobacco: Never Vaping Use Vaping status: Never Used Substance Use Topics Alcohol use: No Drug use: No Family History: Reviewed in the EMR ROS was positive for: Fatigue Pain in the legs when walking Back pain All of the other systems reviewed were negative. OBJECTIVE: PHYSICAL EXAM: GENERAL APPEARANCE: Well appearing, well-hydrated, well nourished and alert SKIN: Head, neck, trunk, and extremities dry, intact and without lesions NECK: negative findings: no asymmetry or scars BACK: TTP throughout paraspinal musculature. LUNGS: even and non-labored breathing, normal chest excursion HEART: Edema: No NEURO/PSYCH: cranial nerves 2-12 intact, speech normal, mental status intact IMAGING: No relevant imaging to review. ASSESSMENT: Fibromyalgia Depression Anxiety OCD ADHD Autism Chronic Pain Syndrome PLAN: Further evaluation: No Nutrition: Yes Therapies: No Sleep: No Worklessness: No Medications: Yes, will start trial of gabapentin 100 mg qHS with slow increase to 100 mg TID. Can consider dose increase thereafter. Interventions: No Infusions: yes 9. Pain Psychology: Yes Review, Ask, Review: Yes Follow-up: 3 months Jasen Madrid DO Attending Note I evaluated the patient and personally participated in the gerardo components. I agree with the fellow/resident's findings and plan as documented and have discussed the case and management of the patient's care with the resident. Ciera King DO I spent a total of 45 minutes on the date of the service which included preparing to see the patient, [id number] patient care, completing clinical documentation, obtaining and/or reviewing separately obtained history, performing a medically appropriate examination, counseling and educating the patient/family/caregiver, and ordering medications, tests, or procedures. Important Patient Information: 1. To schedule Pain Recovery appointments or post-injection office visits, please call: [phone] 2. The nursing staff and medical assistants are an integral part of your pain recovery team and will be handling your phone calls and inquiries. 3. Your study results and treatment plan will be discussed during a follow-up appointment. If you do not have a follow-up appointment and wish to discuss any issues directly with me, please call: [phone] to set-up an appointment. 4. MyChart is best used for refill requests or yes or no questions. Anything more complicated will likely require a follow-up appointment that you can schedule by [phone]. 5. It is the practice of the Department to not fill disability or any other insurance-related forms/documentation. All of the office notes, study results, and other documentation as part of your evaluation will be available to you and to your Primary Care Physician (PCP). Use of this material to complete such forms will be at the discretion of your PCP/referring physician. 6. If you are scheduled for a ketamine infusion, you will be contacted regarding specific scheduling instructions in the future by our department. There is no need to contact our department regarding the scheduling process or your estimated wait; you will be contacted once there is an opening. documented in this encounter [facility] 10-02-2023 Note HNO ID: [id number] Author: ROSIE SORIANO APRN.[employer]ANER Service: ? Author Type: Nurse Practitioner Type: Progress Notes Filed: 10/02/2023 09:34 Note Text: This note was created using UpNextriter. Subjective Lyndon Burroughs is a 42 year old female. 42 year old female with PMH ADHD, depression, presents for eye complaints. Acute onset 2 days ago Right upper eyelid Endorses big bump under right eye States that the area was a white bump Endorses it popped and drainage. Denies visual disturbance Denies drainage Denies FB Wears glasses and contacts Has not worn contacts in 2 weeks, awaiting arrival of contact lens. Goes to [facility] for eye and was seen 2 weeks ago States that she gets these when I am stressed The history is provided by the patient. No saw edge fuser circular was used. Eye Problem This is a new problem. The current episode started in the past 7 days. The problem occurs constantly. Progression since onset: 2 days ago. Pertinent negatives include no abdominal pain, anorexia, arthralgias, change in bowel habit, chest pain, chills, congestion, coughing, diaphoresis, fatigue, fever, headaches, joint swelling, myalgias, nausea, neck pain, numbness, rash, sore throat, swollen glands, urinary symptoms, vertigo, visual change, vomiting or weakness. Exacerbated by: touching the area. She has tried nothing for the symptoms. The treatment provided no relief. PAST MEDICAL HISTORY 05/2017: ASCUS with positive high risk HPV cervical No date: Mood disorder (HCC) Comment: [facility] 12/23/2017: Myopia, bilateral No date: Obsessive-compulsive disorders No date: Other specified anemias No date: PMH - PAST MEDICAL HISTORY OF Comment: HIATAL HERNIA No date: Psychosis ([facility]) Comment: Dr. Rocha at [facility] PAST SURGICAL HISTORY No date: ENDOSCOPY PROC ALLERGIES Latex and Tomatoes MEDICATIONS Amphetamine-Dextroamphetamine (ADDERALL) 30 mg tablet metroNIDAZOLE (METROGEL) 0.75 % Topical Gel Apply to affected skin face twice daily cyclobenzaprine (FLEXERIL) 10 mg tablet Take 1 tablet by mouth at bedtime as needed for muscle spasm or pain. buPROPion XL (WELLBUTRIN XL) 150 mg 24 hr tablet Take 1 tablet by mouth once daily. (Patient taking differently: Take 75 mg by mouth once daily.) Norethindrone, Contraceptive, (ORTHO MICRONOR) 0.35 mg tablet Take 1 tablet by mouth once daily. ketoconazole (NIZORAL) 2 % shampoo Apply 1 application to affected area two times a week. MULTIVITAMIN ORAL Take by mouth once daily. LORazepam (ATIVAN) 0.5 mg Take 0.5 mg by mouth as needed. [id number]-YONF-UTWSV-OREG-CAPRYL ORAL Take by mouth once daily. biotin/calcium carbonate (BIOTIN 100+10 ORAL) Take by mouth once daily. Cholecalciferol, Vitamin D3, 5,000 unit tab Take 1 tablet by mouth once daily. erythromycin (ROMYCIN) 5 mg/gram (0.5 %) ophthalmic ointment Use 1 application in the right eye four times daily for 7 days. diclofenac, EC, (VOLTAREN) 75 mg EC tablet TAKE 1 TABLET BY MOUTH TWICE DAILY FOR PAIN (Patient not taking: Reported on 10/02/2023) FAMILY HISTORY Problem Relation Age of Onset Psychiatry Mother DEPRESSION,SUICIDAL IDEATION Cancer Mother cancer in the appendix Leukemia Mother Hypertension Father Heart Father OK Psychiatry Father DEPRESSION, bipolar COPD Father smoked from age 12 other (CHF) Father Diabetes Sister Depression Sister other (HTN) Sister Depression Brother other (htn) Brother Diabetes Brother Bipolar disorder Brother Psychiatry Brother Schizoaffective Alcohol/Drug Maternal Grandmother ALCOHOLIC Alzheimer's Disease Maternal Grandmother Arthritis Maternal Grandmother Colon Cancer Maternal Grandmother Psychiatry Maternal Grandmother Alcohol/Drug Maternal Grandfather ALCOHOLIC Stroke Maternal Grandfather Alcohol/Drug Paternal Grandmother ALCOHOLIC Heart Paternal Grandmother CHF Alcohol/Drug Paternal Grandfather ALCOHOLIC Heart Paternal Grandfather OK Stroke Paternal Grandfather Alzheimer's Disease Paternal Grandfather Diabetes Maternal Uncle Colon Cancer Maternal Uncle Cancer Maternal Uncle pancreatic cancer Breast Cancer Paternal Aunt Diabetes Paternal Aunt PAUNT X 5 Diabetes Paternal Uncle Autism Other Anxiety disorder Other Tourette syndrome Other Social History Tobacco Use Smoking status: Never Smokeless tobacco: Never Vaping Use Vaping status: Never Used Substance Use Topics Alcohol use: No Drug use: No Review of Systems Constitutional: Negative for chills, diaphoresis, fatigue and fever. HENT: Negative for congestion, ear pain, sinus pressure, sinus pain and sore throat. Eyes: Positive for discharge. Negative for photophobia, pain, redness, itching and visual disturbance. Respiratory: Negative for apnea, cough and chest tightness. Cardiovascular: Negative for chest pain. Gastrointestinal: Negative for abdominal pain, anorex (more content not included)... [facility] 10-02-2023 History of Present illness Narrative This note was created using UpNextriter. Subjective Lyndon Burroughs is a 42 year old female. 42 year old female with PMH ADHD, depression, presents for eye complaints. Acute onset 2 days ago Right upper eyelid Endorses big bump under right eye States that the area was a white bump Endorses it popped and drainage. Denies visual disturbance Denies drainage Denies FB Wears glasses and contacts Has not worn contacts in 2 weeks, awaiting arrival of contact lens. Goes to [facility] for eye and was seen 2 weeks ago States that she gets these when I am stressed The history is provided by the patient. No saw edge fuser circular was used. Eye Problem This is a new problem. The current episode started in the past 7 days. The problem occurs constantly. Progression since onset: 2 days ago. Pertinent negatives include no abdominal pain, anorexia, arthralgias, change in bowel habit, chest pain, chills, congestion, coughing, diaphoresis, fatigue, fever, headaches, joint swelling, myalgias, nausea, neck pain, numbness, rash, sore throat, swollen glands, urinary symptoms, vertigo, visual change, vomiting or weakness. Exacerbated by: touching the area. She has tried nothing for the symptoms. The treatment provided no relief. PAST MEDICAL HISTORY 05/2017: ASCUS with positive high risk HPV cervical No date: Mood disorder ([facility]) Comment: counseling center 12/23/2017: Myopia, bilateral No date: Obsessive-compulsive disorders No date: Other specified anemias No date: PMH - PAST MEDICAL HISTORY OF Comment: HIATAL HERNIA No date: Psychosis ([facility]) Comment: Dr. Rocha at [facility] PAST SURGICAL HISTORY No date: ENDOSCOPY PROC ALLERGIES Latex and Tomatoes MEDICATIONS Amphetamine-Dextroamphetamine (ADDERALL) 30 mg tablet metroNIDAZOLE (METROGEL) 0.75 % Topical Gel Apply to affected skin face twice daily cyclobenzaprine (FLEXERIL) 10 mg tablet Take 1 tablet by mouth at bedtime as needed for muscle spasm or pain. buPROPion XL (WELLBUTRIN XL) 150 mg 24 hr tablet Take 1 tablet by mouth once daily. (Patient taking differently: Take 75 mg by mouth once daily.) Norethindrone, Contraceptive, (ORTHO MICRONOR) 0.35 mg tablet Take 1 tablet by mouth once daily. ketoconazole (NIZORAL) 2 % shampoo Apply 1 application to affected area two times a week. MULTIVITAMIN ORAL Take by mouth once daily. LORazepam (ATIVAN) 0.5 mg Take 0.5 mg by mouth as needed. [id number]-[id number]-[id number]-OREG-CAPRYL ORAL Take by mouth once daily. biotin/calcium carbonate (BIOTIN 100+10 ORAL) Take by mouth once daily. Cholecalciferol, Vitamin D3, 5,000 unit tab Take 1 tablet by mouth once daily. erythromycin (ROMYCIN) 5 mg/gram (0.5 %) ophthalmic ointment Use 1 application in the right eye four times daily for 7 days. diclofenac, EC, (VOLTAREN) 75 mg EC tablet TAKE 1 TABLET BY MOUTH TWICE DAILY FOR PAIN (Patient not taking: Reported on 10/02/2023) FAMILY HISTORY Problem Relation Age of Onset Psychiatry Mother DEPRESSION,SUICIDAL IDEATION Cancer Mother cancer in the appendix Leukemia Mother Hypertension Father Heart Father [place] Psychiatry Father DEPRESSION, bipolar COPD Father smoked from age 12 other (CHF) Father Diabetes Sister Depression Sister other (HTN) Sister Depression Brother other (htn) Brother Diabetes Brother Bipolar disorder Brother Psychiatry Brother Schizoaffective Alcohol/Drug Maternal Grandmother ALCOHOLIC Alzheimer's Disease Maternal Grandmother Arthritis Maternal Grandmother Colon Cancer Maternal Grandmother Psychiatry Maternal Grandmother Alcohol/Drug Maternal Grandfather ALCOHOLIC Stroke Maternal Grandfather Alcohol/Drug Paternal Grandmother ALCOHOLIC Heart Paternal Grandmother CHF Alcohol/Drug Paternal Grandfather ALCOHOLIC Heart Paternal Grandfather OK Stroke Paternal Grandfather Alzheimer's Disease Paternal Grandfather Diabetes Maternal Uncle Colon Cancer Maternal Uncle Cancer Maternal Uncle pancreatic cancer Breast Cancer Paternal Aunt Diabetes Paternal Aunt PAUNT X 5 Diabetes Paternal Uncle Autism Other Anxiety disorder Other Tourette syndrome Other Social History Tobacco Use Smoking status: Never Smokeless tobacco: Never Vaping Use Vaping status: Never Used Substance Use Topics Alcohol use: No Drug use: No Review of Systems Constitutional: Negative for chills, diaphoresis, fatigue and fever. HENT: Negative for congestion, ear pain, sinus pressure, sinus pain and sore throat. Eyes: Positive for discharge. Negative for photophobia, pain, redness, itching and visual disturbance. Respiratory: Negative for apnea, cough and chest tightness. Cardiovascular: Negative for chest pain. Gastrointestinal: Negative for abdominal pain, anorexia, change in bowel habit, nausea and vomiting. Musculoskeletal: Negative for arthralgias, joint swelling, myalgias and neck pain. Skin: Negative for color change, pallor and rash. Allergic/Immunologic: Negative for environmental allergies, food allergies and immunocompromised state. Neurological: Negative for dizziness, vertigo, facial asymmetry, weakness, numbness and headaches. Hematological: Negative for adenopathy. Does not bruise/bleed easily. Psychiatric/Behavioral: Negative for agitation and behavioral problems. Objective BP 142/88 Pulse 103 Temp 36.7 C (98.1 F) Resp 21 Wt 125 kg (275 lb 9.2 oz) LMP 06/21/2023 (Exact Date) SpO2 98% BMI 44.48 kg/m Physical Exam Vitals and nursing note reviewed. Constitutional: General: She is not in acute distress. Appearance: Normal appearance. She is obese. She is not ill-appearing, toxic-appearing or diaphoretic. HENT: Head: Normocephalic and atraumatic. Right Ear: External ear normal. Left Ear: External ear normal. Nose: Nose normal. Mouth/Throat: Mouth: Mucous membranes are moist. Pharynx: No oropharyngeal exudate or posterior oropharyngeal erythema. Eyes: General: Right eye: No discharge. Left eye: No discharge. Extraocular Movements: Extraocular movements intact. Pupils: Pupils are equal, round, and reactive to light. Comments: Right upper eyelid with erythema and swelling Small pustular area on eyelid noted. Vision grossly intact Conjunctiva normal EOM intact Cardiovascular: Rate and Rhythm: Normal rate and regular rhythm. Pulses: Normal pulses. Heart sounds: Normal heart sounds. No murmur heard. No friction rub. Pulmonary: Effort: Pulmonary effort is normal. No respiratory distress. Breath sounds: Normal breath sounds. No stridor. No wheezing, rhonchi or rales. Chest: Chest wall: No tenderness. Abdominal: General: Abdomen is flat. There is no distension. Palpations: Abdomen is soft. There is no mass. Tenderness: There is no abdominal tenderness. There is no right CVA tenderness, left CVA tenderness, guarding or rebound. Hernia: No hernia is present. Musculoskeletal: General: No swelling, tenderness, deformity or signs of injury. Normal range of motion. Cervical back: Normal range of motion and neck supple. No rigidity. Lymphadenopathy: Cervical: No cervical adenopathy. Skin: General: Skin is warm and dry. Capillary Refill: Capillary refill takes less than 2 seconds. Coloration: Skin is not jaundiced or pale. Findings: No bruising, erythema, lesion or rash. Neurological: General: No focal deficit present. Mental Status: She is alert and oriented to person, place, and time. Cranial Nerves: No cranial nerve deficit. Sensory: No sensory deficit. Motor: No weakness. Coordination: Coordination normal. Gait: Gait normal. Psychiatric: Mood and Affect: Mood normal. Behavior: Behavior normal. Thought Content: Thought content normal. Judgment: Judgment normal. Assessment and Plan ASSESSMENT/PLAN: 1. Hordeolum externum of right upper eyelid - ICD9: 373.11, ICD10: H00.011 History of same RX Romycin OTC analgesics Warm compress Follow up with eye for continued symptoms. Rosie Soriano APRN.[employer]AN[employer] documented in this encounter [facility] 07-17-2023 Note HNO ID: [id number] Author: ROSIE RATLIFF PA-C Service: ? Author Type: Physician Recreational Therapy Aide Type: Progress Notes Filed: 07/17/2023 11:20 Note Text: Margarito Borden M.D. hotel casino floorperson [facility] [address] [place] [address] INITIAL ENCOUNTER FOR A NEW SHOULDER PROBLEM Chief Complaint: Left shoulder pain HPI: Lyndon Burroughs is seen at the request of Chelly Cam for consultation regarding the above problem. Findings and recommendations will be communicated back to the referring provider via availability in the shared electronic medical record. Lyndon Burroughs is a 42 year old female who presents with the above complaint. Hand dominance: Bilateral. Two months of atraumatic left shoulder pain. Located laterally. Worse with certain motions, keeping her up at night. She has tried prednisone and oral voltaren with limited relief. No other formal treatment. She denies having any neck pain, radicular pain, numbness/tingling in the arm. Patient does not note any associated mechanical symptoms. All available outside records have been reviewed. REVIEW OF SYSTEMS: Constitutional: patient denies any recent fever or significant change in weight Cardiovascular: patient denies any chest pain at rest Respiratory: patient denies any shortness of breath or cough Gastrointestinal: patient denies any current abdominal discomfort Integumentary: patient denies any recent skin changes Musculoskeletal: as noted in the HPI Neurologic: as noted in the HPI Endocrine: patient denies a current diagnosis of diabetes Hematologic/Lymphatic: patient denies any easily bleeding, any recent infection and denies any recent observable lymph node enlargement Psychologic: negative for any recent depression or anxiety issues FAMILY HISTORY Problem Relation Age of Onset Psychiatry Mother DEPRESSION,SUICIDAL IDEATION Cancer Mother cancer in the appendix Leukemia Mother Hypertension Father Heart Father [place] Psychiatry Father DEPRESSION, bipolar COPD Father smoked from age 12 other (CHF) Father Diabetes Sister Depression Sister other (HTN) Sister Depression Brother other (htn) Brother Diabetes Brother Bipolar disorder Brother Psychiatry Brother Schizoaffective Alcohol/Drug Maternal Grandmother ALCOHOLIC Alzheimer's Disease Maternal Grandmother Arthritis Maternal Grandmother Colon Cancer Maternal Grandmother Psychiatry Maternal Grandmother Alcohol/Drug Maternal Grandfather ALCOHOLIC Stroke Maternal Grandfather Alcohol/Drug Paternal Grandmother ALCOHOLIC Heart Paternal Grandmother CHF Alcohol/Drug Paternal Grandfather ALCOHOLIC Heart Paternal Grandfather OK Stroke Paternal Grandfather Alzheimer's Disease Paternal Grandfather Diabetes Maternal Uncle Colon Cancer Maternal Uncle Cancer Maternal Uncle pancreatic cancer Breast Cancer Paternal Aunt Diabetes Paternal Aunt PAUNT X 5 Diabetes Paternal Uncle Autism Other Anxiety disorder Other Tourette syndrome Other PAST MEDICAL HISTORY Diagnosis Date ASCUS with positive high risk HPV cervical 05/2017 Mood disorder ([facility]) counseling roy Myopia, bilateral 12/23/2017 Obsessive-compulsive disorders Other specified anemias PMH - PAST MEDICAL HISTORY OF HIATAL HERNIA Psychosis ([facility]) Dr. Rocha at [facility] PAST SURGICAL HISTORY Procedure Laterality Date ENDOSCOPY PROC ALLERGIES Allergen Reactions Latex Tomatoes Problem List: reviewed and updated. Contributory Co-morbidities: Assessed as indicated; currently managed. Social History: Social History Tobacco Use Smoking status: Never Smokeless tobacco: Never Vaping Use Vaping Use: Never used Substance Use Topics Alcohol use: No Drug use: No Current Outpatient Medications Medication Sig metroNIDAZOLE (METROGEL) 0.75 % Topical Gel Apply to affected skin face twice daily cyclobenzaprine (FLEXERIL) 10 mg tablet Take 1 tablet by mouth at bedtime as needed for muscle spasm or pain. buPROPion XL (WELLBUTRIN XL) 150 mg 24 hr tablet Take 1 tablet by mouth once daily. Norethindrone, Contraceptive, (ORTHO MICRONOR) 0.35 mg tablet Take 1 tablet by mouth once daily. ketoconazole (NIZORAL) 2 % shampoo Apply 1 application to affected area two times a week. diclofenac, EC, (VOLTAREN) 75 mg EC tablet TAKE 1 TABLET BY MOUTH TWICE DAILY FOR PAIN MULTIVITAMIN ORAL Take by mouth once daily. LORazepam (ATIVAN) 0.5 mg Take 0.5 mg by mouth as needed. [id number]-OREG-CAPRYL ORAL Take by mouth once daily. biotin/calcium carbonate (BIOTIN 100+10 ORAL) Take by mouth once daily. Cholecalciferol, Vitamin D3, 5,000 unit tab Take 1 tablet by mouth once daily. No current facility-administered medications for this visit. Physical Exam: LMP 06/21/2023 Constitutional: Pleasant, well-appearing, no acute distress. Resp: breathing is un (more content not included)... [facility] 07-17-2023 History of Present illness Narrative Associated Order(s): Large Joint Arthro/Inj: L subacromial bursa Post-Procedure Diagnose(s): Impingement of left shoulder Margarito Borden M.D. hotel casino floorperson [facility] [address] [place] [address] INITIAL ENCOUNTER FOR A NEW SHOULDER PROBLEM Chief Complaint: Left shoulder pain HPI: Lyndon Burroughs is seen at the request of Chelly Cam for consultation regarding the above problem. Findings and recommendations will be communicated back to the referring provider via availability in the shared electronic medical record. Lyndon Burroughs is a 42 year old female who presents with the above complaint. Hand dominance: Bilateral. Two months of atraumatic left shoulder pain. Located laterally. Worse with certain motions, keeping her up at night. She has tried prednisone and oral voltaren with limited relief. No other formal treatment. She denies having any neck pain, radicular pain, numbness/tingling in the arm. Patient does not note any associated mechanical symptoms. All available outside records have been reviewed. REVIEW OF SYSTEMS: Constitutional: patient denies any recent fever or significant change in weight Cardiovascular: patient denies any chest pain at rest Respiratory: patient denies any shortness of breath or cough Gastrointestinal: patient denies any current abdominal discomfort Integumentary: patient denies any recent skin changes Musculoskeletal: as noted in the HPI Neurologic: as noted in the HPI Endocrine: patient denies a current diagnosis of diabetes Hematologic/Lymphatic: patient denies any easily bleeding, any recent infection and denies any recent observable lymph node enlargement Psychologic: negative for any recent depression or anxiety issues FAMILY HISTORY Problem Relation Age of Onset Psychiatry Mother DEPRESSION,SUICIDAL IDEATION Cancer Mother cancer in the appendix Leukemia Mother Hypertension Father Heart Father [place] Psychiatry Father DEPRESSION, bipolar COPD Father smoked from age 12 other (CHF) Father Diabetes Sister Depression Sister other (HTN) Sister Depression Brother other (htn) Brother Diabetes Brother Bipolar disorder Brother Psychiatry Brother Schizoaffective Alcohol/Drug Maternal Grandmother ALCOHOLIC Alzheimer's Disease Maternal Grandmother Arthritis Maternal Grandmother Colon Cancer Maternal Grandmother Psychiatry Maternal Grandmother Alcohol/Drug Maternal Grandfather ALCOHOLIC Stroke Maternal Grandfather Alcohol/Drug Paternal Grandmother ALCOHOLIC Heart Paternal Grandmother CHF Alcohol/Drug Paternal Grandfather ALCOHOLIC Heart Paternal Grandfather [place] Stroke Paternal Grandfather Alzheimer's Disease Paternal Grandfather Diabetes Maternal Uncle Colon Cancer Maternal Uncle Cancer Maternal Uncle pancreatic cancer Breast Cancer Paternal Aunt Diabetes Paternal Aunt PAUNT X 5 Diabetes Paternal Uncle Autism Other Anxiety disorder Other Tourette syndrome Other PAST MEDICAL HISTORY Diagnosis Date ASCUS with positive high risk HPV cervical 05/2017 Mood disorder ([facility]) counseling center Myopia, bilateral 12/23/2017 Obsessive-compulsive disorders Other specified anemias PMH - PAST MEDICAL HISTORY OF HIATAL HERNIA Psychosis ([facility]) Dr. Rocha at [facility] PAST SURGICAL HISTORY Procedure Laterality Date ENDOSCOPY PROC ALLERGIES Allergen Reactions Latex Tomatoes Problem List: reviewed and updated. Contributory Co-morbidities: Assessed as indicated; currently managed. Social History: Social History Tobacco Use Smoking status: Never Smokeless tobacco: Never Vaping Use Vaping Use: Never used Substance Use Topics Alcohol use: No Drug use: No Current Outpatient Medications Medication Sig metroNIDAZOLE (METROGEL) 0.75 % Topical Gel Apply to affected skin face twice daily cyclobenzaprine (FLEXERIL) 10 mg tablet Take 1 tablet by mouth at bedtime as needed for muscle spasm or pain. buPROPion XL (WELLBUTRIN XL) 150 mg 24 hr tablet Take 1 tablet by mouth once daily. Norethindrone, Contraceptive, (ORTHO MICRONOR) 0.35 mg tablet Take 1 tablet by mouth once daily. ketoconazole (NIZORAL) 2 % shampoo Apply 1 application to affected area two times a week. diclofenac, EC, (VOLTAREN) 75 mg EC tablet TAKE 1 TABLET BY MOUTH TWICE DAILY FOR PAIN MULTIVITAMIN ORAL Take by mouth once daily. LORazepam (ATIVAN) 0.5 mg Take 0.5 mg by mouth as needed. [id number]-OREG-CAPRYL ORAL Take by mouth once daily. biotin/calcium carbonate (BIOTIN 100+10 ORAL) Take by mouth once daily. Cholecalciferol, Vitamin D3, 5,000 unit tab Take 1 tablet by mouth once daily. No current facility-administered medications for this visit. Physical Exam: LMP 06/21/2023 Constitutional: Pleasant, well-appearing, no acute distress. Resp: breathing is unlabored without audible wheeze Vascular: Normal pedal and radial pulses, no cyanosis, no venous stasis changes Skin: No overlying skin change, ecchymosis, or erythema. Psychiatric: Pleasant, direct, appropriate mood and affect General Orthopaedic Examination: Ambulates well. No other major joint abnormalities noted. 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 Pulses: 2+ radial, ulnar; hands warm bilat, <2sec CR Compartments: soft and compressible Cervical Spine:Appropriate range of motion, negative midline and paraspinal muscle tenderness, negative stepoff, and negative Spurling's test. Focused Upper Extremity Musculoskeletal/Neurologic Exam: Contra-lateral shoulder wnl. ROM-Shoulders: Right: 170/ER:50/IR:T12 Left: 170/ER:50/IR:T12 Rotator Cuff Strength:5/5 . Pain with rotator cuff testing? Yes: Mild Special Tests (as indicated): Neer/Solano:Positive Speed's Test:Negative Yergeson's Test:Negative Belly Press: Negative Lift Off: Negative Vergara's Test:Negative Cross Body Adduction:Negative Jerk Test:Negative Apprehension:Negative Sulcus:Negative Load and Shift:Negative Radiographic studies: Plain Radiographs of the involved shoulder were reviewed and interpreted by me and discussed with patient. Findings:No fracture or dislocation. Assessment/Primary Diagnosis: (M25.812) Impingement of left shoulder (primary encounter diagnosis) Plan/Medical Decision Making: The nature of the problem and all indicated treatment options available were discussed in detail with the patient. Test(s)/Imaging/Referral(s): None 2. Intervention: Graduated occupational/physical therapy program and CSI 3. Follow-up: as needed All of Lyndon Burroughs questions were answered today. She expressed a clear understanding of our discussion and is in agreement with the outlined treatment plan. Rosie Ratliff PA-C CC:Chelly Cam Large Joint Arthro/Inj: L subacromial bursa Informed Consent Consent Obtained: Verbal Waterfall Protocol A moment to CARE was completed. SIGN IN Personnel directly involved with the procedure wore the appropriate PPE. Special Equipment: N/A Patient/Surrogate Stated/Verified: Patient name, Date of , Relevant allergies and Intended procedure TIME OUT Intended patient and procedure match the source document(s). Consent documented and matches the intended procedure. Relevant labs, photos, and/or imaging studies have been reviewed. Correct side/site marked and visible. Medications required for procedure verified. No fire risk assessment and interventions applicable. No implant(s) inserted. 07/17/2023 11:00 AM The procedure site was prepped in the usual sterile fashion. Site: L subacromial bursa Medications: 40 mg triamcinolone acetonide 40 mg/mL Anesthetics: 4 mL lidocaine (PF) 10 mg/mL (1 %) Outcome: Tolerated well, no immediate complications Post-injection instructions were reviewed with the patient and the patient voiced understanding of these instructions. SIGN OUT All instruments, equipment, possible retained foreign bodies accounted for. documented in this encounter [facility] 07-15-2023 Instructions Vance Gray MD - 07/15/2023 11:09 AM EDT Patient instructions for acne/rosacea: Avoid rubbing/scrubbing/exfoliation of the skin. Avoid washcloths/buff puffs/loofa. Avoid hot, long showers/baths. Avoid oil based products (Comedogenic products) Avoid manipulating acne Use moisturizer/sunscreen as instructed Messi Arita sensitive skin body and face SPF 50 mineral sunscreen documented in this encounter [facility] 07-15-2023 History of Present illness Narrative CHIEF COMPLAINT: Patient presents with: Rosacea : no Last menstrual period: 06-21-2023 Last Dermatology Visit: new REFERRAL: Consultation requested by Kae Lennon PA-C for an opinoin regarding the evaluation and treatment of Rosacea [L71.9 (ICD-10-CM)] . My final recommendations will be communicated back to the requesting physician by way of shared medical record or letter via [place] mail. RELEVANT DERMATOLOGY HISTORY: Personal Hx of skin cancer: no Personal Hx of atypical moles: no Family Hx of malignant melanoma: no Antibiotics before dental or other procedures: yes Artificial joints: no Pacemaker: no Anticoagulants: no DERMATOLOGY PROGRESS NOTE HISTORY: Lyndon Burroughs is a 42 year old female who presents with CC/HPI: Chief Complaint Rosacea Location Right cheek Duration 10 years Timing constant Severity mild Quality Red spot Modifying Factors: No prior tx Has sens skin Sunscreen breaks her out PAST MEDICAL HISTORY: PAST MEDICAL HISTORY Diagnosis Date ASCUS with positive high risk HPV cervical 05/2017 Mood disorder ([facility]) counseling roy Myopia, bilateral 12/23/2017 Obsessive-compulsive disorders Other specified anemias PMH - PAST MEDICAL HISTORY OF HIATAL HERNIA Psychosis ([facility]) Dr. Rocha at [facility] center ACTIVE PROBLEM LIST Generalized Anxiety Disorder Major Depressive Disorder in Partial Remission ([facility]) Morbid Obesity Due to Excess Calories ([facility]) Adhd (Attention Deficit Hyperactivity Disorder), Combined Type Social Anxiety Disorder Personality Traits Affecting Medical Condition Dysthymia Chronic Bilateral Low Back Pain Without Sciatica Autism Spectrum Disorder Mixed Obsessional Thoughts and Acts PAST SURGICAL HISTORY Procedure Laterality Date ENDOSCOPY PROC MEDICATIONS: Current Outpatient Medications Medication Sig cyclobenzaprine (FLEXERIL) 10 mg tablet Take 1 tablet by mouth at bedtime as needed for muscle spasm or pain. buPROPion XL (WELLBUTRIN XL) 150 mg 24 hr tablet Take 1 tablet by mouth once daily. Norethindrone, Contraceptive, (ORTHO MICRONOR) 0.35 mg tablet Take 1 tablet by mouth once daily. ketoconazole (NIZORAL) 2 % shampoo Apply 1 application to affected area two times a week. diclofenac, EC, (VOLTAREN) 75 mg EC tablet TAKE 1 TABLET BY MOUTH TWICE DAILY FOR PAIN (Patient not taking: Reported on 04/03/2023) MULTIVITAMIN ORAL Take by mouth once daily. LORazepam (ATIVAN) 0.5 mg Take 0.5 mg by mouth as needed. [id number]-OREG-CAPRYL ORAL Take by mouth once daily. biotin/calcium carbonate (BIOTIN 100+10 ORAL) Take by mouth once daily. Cholecalciferol, Vitamin D3, 5,000 unit tab Take 1 tablet by mouth once daily. No current facility-administered medications for this visit. 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 No dyspnea, chest pain, abdominal pain, dysuria. All other review of systems is negative FAMILY MEDICAL HISTORY: FAMILY HISTORY Problem Relation Age of Onset Psychiatry Mother DEPRESSION,SUICIDAL IDEATION Cancer Mother cancer in the appendix Leukemia Mother Hypertension Father Heart Father OK Psychiatry Father DEPRESSION, bipolar COPD Father smoked from age 12 other (CHF) Father Diabetes Sister Depression Sister other (HTN) Sister Depression Brother other (htn) Brother Diabetes Brother Bipolar disorder Brother Psychiatry Brother Schizoaffective Alcohol/Drug Maternal Grandmother ALCOHOLIC Alzheimer's Disease Maternal Grandmother Arthritis Maternal Grandmother Colon Cancer Maternal Grandmother Psychiatry Maternal Grandmother Alcohol/Drug Maternal Grandfather ALCOHOLIC Stroke Maternal Grandfather Alcohol/Drug Paternal Grandmother ALCOHOLIC Heart Paternal Grandmother CHF Alcohol/Drug Paternal Grandfather ALCOHOLIC Heart Paternal Grandfather OK Stroke Paternal Grandfather Alzheimer's Disease Paternal Grandfather Diabetes Maternal Uncle Colon Cancer Maternal Uncle Cancer Maternal Uncle pancreatic cancer Breast Cancer Paternal Aunt Diabetes Paternal Aunt PAUNT X 5 Diabetes Paternal Uncle Autism Other Anxiety disorder Other Tourette syndrome Other SOCIAL HISTORY: Social History Tobacco Use Smoking status: Never Smokeless tobacco: Never Vaping Use Vaping Use: Never used Substance Use Topics Alcohol use: No Drug use: No PHYSICAL EXAMINATION: GENERAL: Patient is a well appearing, well nourished, and pleasant, female alert and oriented, NAD. SKIN: skin exam was performed including the scalp, face, lips, neck, chest, Mild erythema on bilateral cheeks with superimposed tiny papules pustules Mild blanching erythema on chest ASSESSMENT/PLAN: 1. Rosacea - ICD9: 695.3, ICD10: L71.9 - dx and treatment options skin care discussed -recommend gentle care avoid rubbing scrubbing exfoliating the skin avoid hot long showers -Avoid oil containing products -If skin gets dry recommend Vanicream lotion or CeraVe PM lotion -Use Vanicream gentle facial cleanser - METRONIDAZOLE 0.75 % TOPICAL GEL twice daily -Use mineral sunscreen such as [place] Anthelios body and face SPF 50+ -Avoid triggers as much as possible -Will add low-dose doxycycline 20 mg twice daily if not improved by next visit -patient verbalized understanding and agrees with plan Vance Gray MD The documentation for this note was partially completed by Drea Baltazar LPN acting as scribe for Vance Gray MD. July 15, 2023 7:12 AM. I agree with the Chief Complaint, ROS, and Past Histories independently gathered by the clinical product support representative and the remaining scribed note accurately describes my personal service to the patient. EMMY Ferminkas, MD Return to clinic 3 mo documented in this encounter [facility] 07-15-2023 Note HNO ID: [id number] Author: VANCE GRAY MD Service: ? Author Type: Physician Type: Progress Notes Filed: 07/15/2023 11:13 Note Text: CHIEF COMPLAINT: Patient presents with: Rosacea : no Last menstrual period: 06-21-2023 Last Dermatology Visit: new REFERRAL: Consultation requested by Kae Lennon PA-C for an opinoin regarding the evaluation and treatment of Rosacea [L71.9 (ICD-10-CM)] . My final recommendations will be communicated back to the requesting physician by way of shared medical record or letter via [place] mail. RELEVANT DERMATOLOGY HISTORY: Personal Hx of skin cancer: no Personal Hx of atypical moles: no Family Hx of malignant melanoma: no Antibiotics before dental or other procedures: yes Artificial joints: no Pacemaker: no Anticoagulants: no DERMATOLOGY PROGRESS NOTE HISTORY: Lyndon Burroughs is a 42 year old female who presents with CC/HPI: Chief Complaint Rosacea Location Right cheek Duration 10 years Timing constant Severity mild Quality Red spot Modifying Factors: No prior tx Has sens skin Sunscreen breaks her out PAST MEDICAL HISTORY: PAST MEDICAL HISTORY Diagnosis Date ASCUS with positive high risk HPV cervical 05/2017 Mood disorder ([facility]) counseling center Myopia, bilateral 12/23/2017 Obsessive-compulsive disorders Other specified anemias PMH - PAST MEDICAL HISTORY OF HIATAL HERNIA Psychosis ([facility]) Dr. Rocha at counseling center ACTIVE PROBLEM LIST Generalized Anxiety Disorder Major Depressive Disorder in Partial Remission ([facility]) Morbid Obesity Due to Excess Calories ([facility]) Adhd (Attention Deficit Hyperactivity Disorder), Combined Type Social Anxiety Disorder Personality Traits Affecting Medical Condition Dysthymia Chronic Bilateral Low Back Pain Without Sciatica Autism Spectrum Disorder Mixed Obsessional Thoughts and Acts PAST SURGICAL HISTORY Procedure Laterality Date ENDOSCOPY PROC MEDICATIONS: Current Outpatient Medications Medication Sig cyclobenzaprine (FLEXERIL) 10 mg tablet Take 1 tablet by mouth at bedtime as needed for muscle spasm or pain. buPROPion XL (WELLBUTRIN XL) 150 mg 24 hr tablet Take 1 tablet by mouth once daily. Norethindrone, Contraceptive, (ORTHO MICRONOR) 0.35 mg tablet Take 1 tablet by mouth once daily. ketoconazole (NIZORAL) 2 % shampoo Apply 1 application to affected area two times a week. diclofenac, EC, (VOLTAREN) 75 mg EC tablet TAKE 1 TABLET BY MOUTH TWICE DAILY FOR PAIN (Patient not taking: Reported on 04/03/2023) MULTIVITAMIN ORAL Take by mouth once daily. LORazepam (ATIVAN) 0.5 mg Take 0.5 mg by mouth as needed. [id number]-OREG-CAPRYL ORAL Take by mouth once daily. biotin/calcium carbonate (BIOTIN 100+10 ORAL) Take by mouth once daily. Cholecalciferol, Vitamin D3, 5,000 unit tab Take 1 tablet by mouth once daily. No current facility-administered medications for this visit. 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 No dyspnea, chest pain, abdominal pain, dysuria. All other review of systems is negative FAMILY MEDICAL HISTORY: FAMILY HISTORY Problem Relation Age of Onset Psychiatry Mother DEPRESSION,SUICIDAL IDEATION Cancer Mother cancer in the appendix Leukemia Mother Hypertension Father Heart Father [place] Psychiatry Father DEPRESSION, bipolar COPD Father smoked from age 12 other (CHF) Father Diabetes Sister Depression Sister other (HTN) Sister Depression Brother other (htn) Brother Diabetes Brother Bipolar disorder Brother Psychiatry Brother Schizoaffective Alcohol/Drug Maternal Grandmother ALCOHOLIC Alzheimer's Disease Maternal Grandmother Arthritis Maternal Grandmother Colon Cancer Maternal Grandmother Psychiatry Maternal Grandmother Alcohol/Drug Maternal Grandfather ALCOHOLIC Stroke Maternal Grandfather Alcohol/Drug Paternal Grandmother ALCOHOLIC Heart Paternal Grandmother CHF Alcohol/Drug Paternal Grandfather ALCOHOLIC Heart Paternal Grandfather OK Stroke Paternal Grandfather Alzheimer's Disease Paternal Grandfather Diabetes Maternal Uncle Colon Cancer Maternal Uncle Cancer Maternal Uncle pancreatic cancer Breast Cancer Paternal Aunt Diabetes Paternal Aunt PAUNT X 5 Diabetes Paternal Uncle Autism Other Anxiety disorder Other Tourette syndrome Other SOCIAL HISTORY: Social History Tobacco Use Smoking status: Never Smokeless tobacco: Never Vaping Use Vaping Use: Never used Substance Use Topics Alcohol use: No Drug use: No PHYSICAL EXAMINATION: GENERAL: Patient is a well appearing, well nourished, and pleasant, female alert and oriented, NAD. SKIN: skin exam was performed including the scalp, face, lips, neck, chest, Mild erythema on bilateral cheeks with superimposed tiny papules pustules Mild blanching erythem (more content not included)... [facility] 06-26-2023 History of Present illness Narrative This note was created using Prescientter. Subjective Lyndon Burroughs is a 42 year old female. HPI Patient presents with a chief complaint of left shoulder pain over the past 2 weeks. She has pain with attempting to lift the arm above her head and with certain movements. She states she just woke up with the pain 1 day. She had been cleaning out a family member's house prior to this but had no sudden pain. Denies problems with the shoulder previously. He has been using [id number] pain relievers without relief. No weakness numbness or tingling. Review of Systems Constitutional: Negative. HENT: Negative. Respiratory: Negative. Cardiovascular: Negative. Gastrointestinal: Negative. Musculoskeletal: Left shoulder pain All other systems reviewed and are negative. PAST MEDICAL HISTORY Diagnosis Date ASCUS with positive high risk HPV cervical 05/2017 Mood disorder ([facility]) counseling center Myopia, bilateral 12/23/2017 Obsessive-compulsive disorders Other specified anemias PMH - PAST MEDICAL HISTORY OF HIATAL HERNIA Psychosis ([facility]) Dr. Rocha at counseling center Current Outpatient Medications Medication Sig Dispense Refill cyclobenzaprine (FLEXERIL) 10 mg tablet Take 1 tablet by mouth at bedtime as needed for muscle spasm or pain. 30 tablet 0 Phentermine HCl 37.5 mg tablet Take 1 tablet by mouth once daily for 30 days. Do not start before June 03, 2023. 30 tablet 0 buPROPion XL (WELLBUTRIN XL) 150 mg 24 hr tablet Take 1 tablet by mouth once daily. 90 tablet 1 Norethindrone, Contraceptive, (ORTHO MICRONOR) 0.35 mg tablet Take 1 tablet by mouth once daily. 84 tablet 3 ketoconazole (NIZORAL) 2 % shampoo Apply 1 application to affected area two times a week. 120 mL 0 MULTIVITAMIN ORAL Take by mouth once daily. LORazepam (ATIVAN) 0.5 mg Take 0.5 mg by mouth as needed. [id number]-BEUFG-OREG-CAPRYL ORAL Take by mouth once daily. biotin/calcium carbonate (BIOTIN 100+10 ORAL) Take by mouth once daily. Cholecalciferol, Vitamin D3, 5,000 unit tab Take 1 tablet by mouth once daily. 0 predniSONE (DELTASONE) 20 mg tablet Take 2 tablets by mouth once daily for 5 days. 10 tablet 0 diclofenac, EC, (VOLTAREN) 75 mg EC tablet TAKE 1 TABLET BY MOUTH TWICE DAILY FOR PAIN (Patient not taking: Reported on 04/03/2023) 60 tablet 0 No current facility-administered medications for this visit. PAST SURGICAL HISTORY Procedure Laterality Date ENDOSCOPY PROC FAMILY HISTORY Problem Relation Age of Onset Psychiatry Mother DEPRESSION,SUICIDAL IDEATION Cancer Mother cancer in the appendix Leukemia Mother Hypertension Father Heart Father [place] Psychiatry Father DEPRESSION, bipolar COPD Father smoked from age 12 other (CHF) Father Diabetes Sister Depression Sister other (HTN) Sister Depression Brother other (htn) Brother Diabetes Brother Bipolar disorder Brother Psychiatry Brother Schizoaffective Alcohol/Drug Maternal Grandmother ALCOHOLIC Alzheimer's Disease Maternal Grandmother Arthritis Maternal Grandmother Colon Cancer Maternal Grandmother Psychiatry Maternal Grandmother Alcohol/Drug Maternal Grandfather ALCOHOLIC Stroke Maternal Grandfather Alcohol/Drug Paternal Grandmother ALCOHOLIC Heart Paternal Grandmother CHF Alcohol/Drug Paternal Grandfather ALCOHOLIC Heart Paternal Grandfather [place] Stroke Paternal Grandfather Alzheimer's Disease Paternal Grandfather Diabetes Maternal Uncle Colon Cancer Maternal Uncle Cancer Maternal Uncle pancreatic cancer Breast Cancer Paternal Aunt Diabetes Paternal Aunt PAUNT X 5 Diabetes Paternal Uncle Autism Other Anxiety disorder Other Tourette syndrome Other Social History Tobacco Use Smoking status: Never Smokeless tobacco: Never Vaping Use Vaping Use: Never used Substance Use Topics Alcohol use: No Drug use: No Objective BP 132/88 Pulse 94 Temp 36.2 C (97.1 F) Resp 20 Wt 120 kg (264 lb 8.8 oz) LMP 06/21/2023 (Exact Date) SpO2 98% BMI 42.70 kg/m Physical Exam Vitals reviewed. Constitutional: Appearance: Normal appearance. HENT: Head: Normocephalic and atraumatic. Musculoskeletal: Comments: Exam of the left shoulder reveals tenderness palpation over the AC area. No tenderness otherwise over the clavicle. Pain with range of motion of the shoulder. Normal strength against resistance. Radial pulse 2+ normal hand grasp strength. No redness or swelling. Skin: General: Skin is warm and dry. Findings: No rash. Neurological: General: No focal deficit present. Mental Status: She is alert and oriented to person, place, and time. Assessment and Plan ASSESSMENT/PLAN: 1. Acute pain of left shoulder - ICD9: 719.41, ICD10: M25.512 X-rays do show some degenerative degenerative changes of the AC joint. Will treat with prednisone burst. Discussed not using NSAIDs with this. Follow-up with orthopedics if not improving. Rest, ice. Patient agreeable. - XR SHOULDER GENERAL 3V OR MORE AP/TRUE AP/OTHER LEFT - PREDNISONE 20 MG TABLET - CONSULT TO ORTHOPAEDICS Chelly Cam PA-C documented in this encounter [facility] 06-26-2023 History of Present illness Narrative Radiology Service Progress Note PATIENT NAME: Lyndon Burroughs DATE OF SERVICE: June 26, 2023 TIME: 11:02 AM PATIENT IDENTITY VERIFICATION COMPLETED USING TWO (2) IDENTIFIERS: Name and Date of confirmed by patient verbally. FALL SCREENING: Has the patient had 2 falls in the last year or 1 fall with injury or currently using an Ambulatory Assistive Device (Walker, Cane, Wheelchair, Crutches, etc.)? No PATIENT GENDER DATA: Female. status: : No status: NO. PATIENT RELEVANT IMPLANT DATA REVIEWED: Yes PATIENT PRESENTS WITH AN IMPLANTABLE OR ATTACHED POOLING OPERATOR: No RADIOLOGY DEPARTMENT: General X-ray: Exam(s) Completed: Upper Extremity X-Ray(s): Shoulder, AP / TRUE AP / AXILLARY left PERIPHERAL IV DATA: Not applicable SIGNED BY: RT Arvind(R) June 26, 2023 11:02 AM documented in this encounter [facility] 06-26-2023 History of Present illness Narrative Fruit Grader offered: Patient declines. Junior Graphic Designer Visit 06/26/2023 9:46 AM CC: STD screening HPI: Lyndon Burroughs is a 42 year old woman here for STD screening. Any known exposure? Unsure- 3 new partners in the past 6 months Vaginal discharge? Yes: 2 weeks ago- itchy and uncomfortable mild burning. Denies any current concerns. Contraception: oral contraceptives ROS: Denies fevers, pelvic pain, abnormal vaginal bleeding. O: BP 128/90 Wt 264 lb 9.6 oz (120 kg) LMP 06/21/2023 (Exact Date) BMI 42.71 kg/m Gen: NAD SSE: normal cervix and vagina with physiological discharge present. A/P: 42 year old woman requesting STD screening. Increased risk for STDs - GC/Chlamydia, HIV, Hepatitis B, C, and Syphilis - will notify patient of abnormal results. - discussed condom use for STD prevention. Follow up 1 year for annual harvest worker fruit exam or sooner as needed. Yahaira Daniels APRN.CNM documented in this encounter [facility] 06-17-2023 Telephone encounter Note Patient has been identified by name and date of : Yes Patient phones for refill(s): Requested Prescriptions Pending Prescriptions Disp Refills cyclobenzaprine (FLEXERIL) 10 mg tablet 30 tablet 0 Sig: Take 1 tablet by mouth at bedtime as needed for muscle spasm or pain. Date of last office visit in primary care: 04/03/2023 Date of next office visit in primary care: 07/31/2023 Please advise. Thank you. Kathleen Granger LPN. [facility] 06-17-2023 Miscellaneous Notes Patient has been identified by name and date of : Yes Patient phones for refill(s): Requested Prescriptions Pending Prescriptions Disp Refills cyclobenzaprine (FLEXERIL) 10 mg tablet 30 tablet 0 Sig: Take 1 tablet by mouth at bedtime as needed for muscle spasm or pain. Date of last office visit in primary care: 04/03/2023 Date of next office visit in primary care: 07/31/2023 Please advise. Thank you. Kathleen Granger LPN. documented in this encounter [facility] 05-13-2023 Miscellaneous Notes I called patient and she states she does know she has refills. States she sent this in error-she meant to send this to the pharmacy to request refill documented in this encounter [facility] 05-13-2023 Miscellaneous Notes Patient has been identified by name and date of : No Patient phones for refill(s): Requested Prescriptions Pending Prescriptions Disp Refills cyclobenzaprine (FLEXERIL) 10 mg tablet 30 tablet 0 Sig: Take 1 tablet by mouth at bedtime as needed for muscle spasm or pain. Date of last office visit in primary care: 04/03/2023 Date of next office visit in primary care: 07/03/2023 Please advise. Thank you. Lynette Perez LPN. documented in this encounter [facility] 05-11-2023 Miscellaneous Notes May 11, 2023 PID: [id number] Lyndon Burroughs [address] [place] [id number] Dear Ms. Burroughs, We are pleased to inform you that the results of your recent breast imaging exam on 05/11/2023 are normal. Early detection of cancer is very important. We also understand recommendations regarding breast cancer screening are controversial. Please discuss with your primary care provider which strategy is best for you and whether a mammogram is right for you. Your imaging studies and report will be kept on file at [facility] as part of your permanent medical record and are available for your continuing care. Thank you for allowing us to help in meeting your health care needs. Sincerely, Dr. Lewis Interpreting Radiologist [facility] (Normal over 40) documented in this encounter [facility] 05-11-2023 History of Present illness Narrative Radiology Service Progress Note PATIENT NAME: Lyndon Burroughs DATE OF SERVICE: May 11, 2023 TIME: 8:48 AM PATIENT IDENTITY VERIFICATION COMPLETED USING TWO (2) IDENTIFIERS: Name and Date of confirmed by patient verbally. FALL SCREENING: Has the patient had 2 falls in the last year or 1 fall with injury or currently using an Ambulatory Assistive Device (Walker, Cane, Wheelchair, Crutches, etc.)? No PATIENT GENDER DATA: Female. status: : No status: NO. PATIENT RELEVANT IMPLANT DATA REVIEWED: Not Applicable PATIENT PRESENTS WITH AN IMPLANTABLE OR ATTACHED POOLING OPERATOR: No RADIOLOGY DEPARTMENT: Mammography PERIPHERAL IV DATA: Not applicable SIGNED BY: Ahmet SmithiCIMS Geetha May 11, 2023 8:48 AM documented in this encounter [facility] 04-03-2023 History of Present illness Narrative SUBJECTIVE: Hepatitis B Vaccine(1 of 3 - 3-dose series) Never done Influenza Vaccine(1) due on 10/10/2022 Covid-19 Vaccine(2022- season) due on 10/10/2022 Mammogram Screening due on 02/19/2023 HPI Lyndon Burroughs is a 42 year old female. PMH significant for ACTIVE PROBLEM LIST Generalized Anxiety Disorder Major Depressive Disorder in Partial Remission ([facility]) Morbid Obesity Due to Excess Calories ([facility]) Adhd (Attention Deficit Hyperactivity Disorder), Combined Type Social Anxiety Disorder Personality Traits Affecting Medical Condition Dysthymia Chronic Bilateral Low Back Pain Without Sciatica Autism Spectrum Disorder Mixed Obsessional Thoughts and Acts PCP: Errol Luu MD Presents today for follow-up of weight. HPI excerpted from previous visit. Breast biopsy on right completed July 03, [address] Mckeon revealed PASH. Followed by Solo Betancourt MD for ADHD, anxiety and depression. Presents for a routine visit today. Mom has leukemia and undergoing treatment at [facility]. Notes weight is increased. She reports trending up for a long time. She has been on phentermine in the past would like to resume. She reports previously has stopped Adderall and then taken phentermine for weight loss in the past and that is been effective. No current diet or exercise due to her mother's illness. She reports chronic insomnia trouble falling asleep and staying asleep for years. Has had sleep study and did not show ANTHONY. States she needs to be able to awaken for her daughter and mother if they need her during the night. Not interested in sleeping pill at this time, trazodone did not help. She reports chronic allover body pain. She notes chronic back pain and chronic knee pain. Currently taking diclofenac which is helping her knee pain somewhat. States her daughter has Cornelius-Danlos hypermobility. Advised she should follow-up regarding this for herself as well. Has not yet done so. She notes bruxism, has seen dentist regarding this. Notes not using mouthguard currently. Returns today for follow-up of weight loss and phentermine. Reports side effect of constipation managed with increased fluid intake. No need for OTC remedy. She reports trying to eat a healthy diet. She reports increasing activity from 2500 steps per day to 4000. She plans to increase by thousand steps every week or 2. Has not yet returned to the gym but plans to do so. States anxiety is keeping her away. States she did not start medication until January due to filing for bankruptcy and too much stress. Feeling better now. Since last here she was seen by rheumatology. Noted to have diffuse pain and fibromyalgia. She was referred to endocrinology for weight management, Center for chronic pain recovery and pelvic floor PT. Review of Systems Constitutional: Positive for unexpected weight change. Musculoskeletal: Positive for arthralgias and back pain. Psychiatric/Behavioral: Positive for decreased concentration, dysphoric mood and sleep disturbance. The patient is nervous/anxious. Objective BP 129/84 Pulse 98 Resp 16 Wt 118.4 kg (261 lb) LMP 12/30/2022 (Exact Date) BMI 42.13 kg/m Physical Exam Vitals and nursing note reviewed. Constitutional: Appearance: Normal appearance. HENT: Head: Normocephalic and atraumatic. Eyes: Conjunctiva/sclera: Conjunctivae normal. Cardiovascular: Rate and Rhythm: Normal rate and regular rhythm. Pulses: Carotid pulses are 2+ on the right side and 2+ on the left side. Radial pulses are 2+ on the right side and 2+ on the left side. Heart sounds: Normal heart sounds. Pulmonary: Effort: Pulmonary effort is normal. Breath sounds: Normal breath sounds. Abdominal: General: Bowel sounds are normal. Palpations: Abdomen is soft. Musculoskeletal: Right lower leg: No edema. Left lower leg: No edema. Skin: General: Skin is warm and dry. Neurological: General: No focal deficit present. Mental Status: She is alert and oriented to person, place, and time. ALLERGIES Allergen Reactions Latex Tomatoes Medications buPROPion XL (WELLBUTRIN XL) 150 mg 24 hr tablet Take 1 tablet by mouth once daily. Norethindrone, Contraceptive, (ORTHO MICRONOR) 0.35 mg tablet Take 1 tablet by mouth once daily. ketoconazole (NIZORAL) 2 % shampoo Apply 1 application to affected area two times a week. cyclobenzaprine (FLEXERIL) 10 mg tablet Take 1 tablet by mouth at bedtime as needed for muscle spasm or pain. MULTIVITAMIN ORAL Take by mouth once daily. LORazepam (ATIVAN) 0.5 mg Take 0.5 mg by mouth as needed. PGZEOEE-SJYA-ARWKU-OREG-CAPRYL ORAL Take by mouth once daily. biotin/calcium carbonate (BIOTIN 100+10 ORAL) Take by mouth once daily. Cholecalciferol, Vitamin D3, 5,000 unit tab Take 1 tablet by mouth once daily. [START ON 06/03/2023] Phentermine HCl 37.5 mg tablet Take 1 tablet by mouth once daily for 30 days. Do not start before June 03, 2023. [START ON 05/04/2023] Phentermine HCl 37.5 mg tablet Take 1 tablet by mouth once daily for 30 days. Do not start before May 04, 2023. [START ON 04/04/2023] Phentermine HCl 37.5 mg tablet Take 1 tablet by mouth once daily for 30 days. Do not start before April 04, 2023. diclofenac, EC, (VOLTAREN) 75 mg EC tablet TAKE 1 TABLET BY MOUTH TWICE DAILY FOR PAIN (Patient not taking: Reported on 04/03/2023) PAST MEDICAL HISTORY Diagnosis Date ASCUS with positive high risk HPV cervical 05/2017 Mood disorder (HCC) counseling center Myopia, bilateral 12/23/2017 Obsessive-compulsive disorders Other specified anemias PMH - PAST MEDICAL HISTORY OF HIATAL HERNIA Psychosis (HCC) Dr. Rocha at counseling center Social History Tobacco Use Smoking status: Never Smokeless tobacco: Never Vaping Use Vaping Use: Never used Substance Use Topics Alcohol use: No Drug use: No ASSESSMENT/PLAN: 1. Morbid obesity with BMI of 40.0-44.9, adult (HCC) - ICD9: 278.01, V85.41, ICD10: E66.01, Z68.41 (primary diagnosis) She reports starting phentermine in January not in December due to social stressors. She has reached 5% weight loss so we will continue on for now. She notes mild side effect of constipation otherwise without complaints of medication. 3-month follow-up with me, 6-month follow-up with PCP. - PHENTERMINE 37.5 MG TABLET Endorse portion control and routine exercise. Phentermine criteria: no required time off therapy after 12 weeks (still need to have an initial BMI>30 or >27 with the listed comorbid factors) need to assess the patient at least once every three months and obtain the patient's weight, blood pressure, and heart rate not to continue therapy in patients who have not achieved a weight loss of at least 5% of the patient's initial weight, during the initial three month Tico Root APRN.BATCH AND FURNACE MANAGER Medical Decision Making: Problems: Moderate: 2+ stable chronic illnesses Risk: Moderate: Drug management Medical Decision Making Level: 4 - Moderate documented in this encounter [facility] 03-29-2023 Note IMPRESSION: 1. Progressive advanced bilateral knee osteoarthrosis 2. Minimal bilateral hip osteoarthrosis 3. Unremarkable SI joints 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: [facility] Transcribe Date/Time: Mar 29 2023 9:32A Dictated by : GABY COLEMAN MD This examination was interpreted and the report reviewed and electronically signed by: GABY COLEMAN MD on Mar 29 2023 9:35AM EST DIVISION OF RADIOLOGY 03-29-2023 Note IMPRESSION: 1. Progressive advanced bilateral knee osteoarthrosis 2. Minimal bilateral hip osteoarthrosis 3. Unremarkable SI joints 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: [facility] Transcribe Date/Time: Mar 29 2023 9:32A Dictated by : GABY COLEMAN MD This examination was interpreted and the report reviewed and electronically signed by: GABY COLEMAN MD on Mar 29 2023 9:35AM EST DIVISION OF RADIOLOGY 03-29-2023 Note IMPRESSION: 1. Progressive advanced bilateral knee osteoarthrosis 2. Minimal bilateral hip osteoarthrosis 3. Unremarkable SI joints 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: [email or web address] Transcribe Date/Time: Mar 29 2023 9:32A Dictated by : GABY COLEMAN MD This examination was interpreted and the report reviewed and electronically signed by: GABY COLEMAN MD on Mar 29 2023 9:35AM EST DIVISION OF RADIOLOGY 03-27-2023 History of Present illness Narrative Radiology Service Progress Note PATIENT NAME: Lyndon Burroughs DATE OF SERVICE: March 27, 2023 TIME: 9:59 AM PATIENT IDENTITY VERIFICATION COMPLETED USING TWO (2) IDENTIFIERS: Name and Date of confirmed by patient verbally. FALL SCREENING: Has the patient had 2 falls in the last year or 1 fall with injury or currently using an Ambulatory Assistive Device (Walker, Cane, Wheelchair, Crutches, etc.)? No PATIENT GENDER DATA: Female. status: : No status: NO. PATIENT RELEVANT IMPLANT DATA REVIEWED: Not Applicable PATIENT PRESENTS WITH AN IMPLANTABLE OR ATTACHED POOLING OPERATOR: No RADIOLOGY DEPARTMENT: General X-ray: Exam(s) Completed: Spine X-Ray(s): Cervical AP / LAT and Lumbar AP / LAT / L5-S1 / OBL Pelvis X-Ray: Pelvis with Hip Bilateral Lower Extremity X-Ray(s): Knee, AP / Lat / Tunne / Merchant Bilateral and Wt. Bearing si joints PERIPHERAL IV DATA: Not applicable SIGNED BY: RT Tomy(R) March 27, 2023 9:59 AM documented in this encounter [facility] 03-26-2023 Instructions Kae Lennon PA-C - 03/26/2023 1:48 PM EST Complete x-rays Schedule the following consultations: Pelvic floor PT Endocrinology for weight management [facility] Dermatology for rosacea and skin check documented in this encounter [facility] 03-26-2023 History of Present illness Narrative Images from the original note were not included. Orthopedic and Rheumat[facility] [place] Department of Rheumatic and Immunologic Diseases New Patient Date of Service: 03/26/2023 Patient: Lyndon Burroughs Medical Record: [id number] Primary Care Physician: Errol Luu MD Referring Physician: Tico Root Last Rheumatology visit: None at [facility] This consult was requested by the doctor listed for an opinion regarding the chief complaint listed below, and my final recommendations will be communicated to the requesting health care provider by way of the shared medical record for internal providers or letter via the [employer] for external providers. SUBJECTIVE CC: Generalized musculoskeletal pain History of Present Illness Patient is a 42 year-old female presenting for evaluation of generalized musculoskeletal pain. Patient is the primary historian. Patient has a significant past medical history of chronic bilateral low back pain without sciatica, osteoarthritis (OA), migraines with aura, morbid obesity, autism spectrum disorder, obsessive compulsive disorder (OCD), ADHD combined-type, borderline personality disorder, major depressive disorder, generalized anxiety disorder, and history of psychosis Relevant Serology Results: 11/01/2022: KYLE negative 11/01/2022: Rheumatoid factor: <10 Current Pertinent Medications: Diclofenac EC 75-mg: take 1 tablet by mouth twice daily Cyclobenzaprine 10-mg: take 1 tablet by mouth at bedtime as needed Past Rheumatologic Medications: none Ms. Marielle Burroughs is a 42 year-old female with longstanding history of generalized musculoskeletal pain Patient endorses first experiencing musculoskeletal pain since elementary child, which she considered secondary to both hypermobility and anxiolytic life events Joints initially involved: bilateral hips, knees, and ankles Endorses frequent subluxations without dislocation of daughter: 2006 Back pain progressed despite chiropractic adjustments Symptoms were conservatively self-managed with rest, AMI bandage application, and oral Acetaminophen until Presented to then primary care physician for further evaluation Advised to enroll in Physical Therapy Due to Dr. Ambrosio's utilization of paper charting, chart review is not available at this time Based upon clinical presentation, patient states that she was diagnosed with fibromyalgia, osteoarthritis, and inflammatory arthritis Patient notes that imaging and serologies completed at time of initial encounter were remarkable for only degenerative joint disease (no autoantibodies appreciated) While managed by Dr. Ambrosio, patient recalls being prescribed several courses of oral glucocorticoids, Hydroxychloroquine Sulfate, Leflunomide (adverse effects of vomiting and diffuse skin eruptions), NSAIDs, and Gabapentin and well as completed cervical and lumbar epidural corticosteroid injections in 2019 while living in [place] Patient denies experiencing symptom improvement with aforementioned interventions Patient states that during the fall of 2022, she was prescribed an injectable therapy (cannot recall name), but due to lack of insurance coverage, Tramadol was alternatively prescribed with prescription maintained since by primary care physician, Dr. 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, further exacerbating emotional lability and depressive state Wants to exercise Endorses current symptoms: Fatigue and easy fatigability Difficulty sleeping (difficulty falling asleep and staying asleep) Cognitive difficulties Allodynia Emotional lability Had been established with several counselors and psychiatry in the past Generalized myalgias and muscular weakness attributed to suboptimally managed fibromyalgia and muscular deconditioning Patient states that she has utilized Gabapentin dosages as high as 800-mg Joint pain Joints involved: generalized, with weight-bearing joints (bilateral hips and knees being most notable Pain on a scale of 0-10: 10 Quality of pain: sharp and throbbing Not dependent on time of day Continuous Joint stiffness: all day Exacerbating factors: standing for prolonged periods of time, seasonal weather pattern changes, and repetitive overuse Alleviating factors: none Denies: Fever Lymphadenopathy Rash History of psoriasis Nail ridging, pitting, or dystrophy Nonscarring alopecia Raynaud's phenomena Mucocutaneous lesions History of or symptoms consistent with inflammatory eye disease History of or symptoms consistent with inflammatory bowel disease Dry eye or dry mouth Joint swelling Enthesitis Dactylitis Chest pain Dyspnea History of gout History of thromboembolic events Functional status: fair History of joint injuries/fractures: Bilateral ankle left wrist hairline fractures as child History of joint replacements/surgeries: none Ambulation status/assistive devices: stable without assistance Rheum/Ortho Arthrocentesis Injections (last 5) Some values may be hidden. Unless noted otherwise, only the newest values recorded on each date are displayed. Injection History 06/03/21 09/02/21 12/02/21 Medication - Right 6 mg betamethasone acetate-betamethasone sodium phosphate 6 mg/mL 6 mg betamethasone acetate-betamethasone sodium phosphate 6 mg/mL 6 mg betamethasone acetate-betamethasone sodium phosphate 6 mg/mL Medication - Left 6 mg betamethasone acetate-betamethasone sodium phosphate 6 mg/mL 6 mg betamethasone acetate-betamethasone sodium phosphate 6 mg/mL 6 mg betamethasone acetate-betamethasone sodium phosphate 6 mg/mL Location knee knee knee Knee Site bilateral knee joints bilateral knee joints bilateral knee joints Current Outpatient Medications on File Prior to Visit Medication Sig buPROPion XL (WELLBUTRIN XL) 150 mg 24 hr tablet Take 1 tablet by mouth once daily. Phentermine HCl 37.5 mg tablet Take 1 tablet by mouth once daily for 30 days. Norethindrone, Contraceptive, (ORTHO MICRONOR) 0.35 mg tablet Take 1 tablet by mouth once daily. ketoconazole (NIZORAL) 2 % shampoo Apply 1 application to affected area two times a week. diclofenac, EC, (VOLTAREN) 75 mg EC tablet TAKE 1 TABLET BY MOUTH TWICE DAILY FOR PAIN cyclobenzaprine (FLEXERIL) 10 mg tablet Take 1 tablet by mouth at bedtime as needed for muscle spasm or pain. MULTIVITAMIN ORAL Take by mouth once daily. LORazepam (ATIVAN) 0.5 mg Take 0.5 mg by mouth as needed. RBUNFXF-MSAJ-UTQTE-OREG-CAPRYL ORAL Take by mouth once daily. biotin/calcium carbonate (BIOTIN 100+10 ORAL) Take by mouth once daily. Cholecalciferol, Vitamin D3, 5,000 unit tab Take 1 tablet by mouth once daily. No current facility-administered medications on file prior to visit. Review of Systems CONSTITUTION: Negative for: Fever and Recent weight change HEENT: Positive for: Mouth sores and Dry mouth Negative for: Nosebleeds and Trouble swallowing RESPIRATORY: Negative for: Cough, Shortness of breath and Pain with breathing GASTROINTESTINAL: Positive for: Diarrhea and Heartburn Negative for: Melena and Abdominal pain MUSCULOSKELETAL: Positive for: Arthralgias, Myalgias, Muscle weakness and Morning Joint Stiffness Negative for: Joint swelling NEUROLOGICAL: Positive for: Headaches and Memory loss Negative for: Numbness SKIN: Positive for: Rash, Sun Sensitive Rash, Hair loss and Nail changes Negative for: Skin changes EYES: Positive for: Eye dryness and Visual disturbance Negative for: Eye pain and Eye redness CARDIOVASCULAR: Positive for: Leg swelling Negative for: Chest pain GENITOURINARY: Negative for: Dysuria and Hematuria HEMATOLOGIC/LYMPHATIC: Positive for: Swollen glands All other reviewed and negative other than HPI. 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 Lives at home: with daughter Physical activity: prior to COVID - strengthening and walking Substance use Tobacco use: none Alcohol use: Marijuana: Stress level: moderate to severe Visual aid (contacts or glasses): Recent travel: Environmental exposure: Personal history of cancer: Age-appropriate cancer screening: - Annual skin screening: - Mammogram - Pap smear - Colonoscopy Vaccination Status: - Flu vaccine: - [id number]: / Pneumovax: - Shingrix/ Zostavax: - COVID19: Family History Significant for: Daughter: hypermobile Cornelius-Danlos Syndrome PAST MEDICAL HISTORY Diagnosis Date ASCUS with positive high risk HPV cervical 05/2017 Mood disorder (HCC) counseling center Myopia, bilateral 12/23/2017 Obsessive-compulsive disorders Other specified anemias PMH - PAST MEDICAL HISTORY OF HIATAL HERNIA Psychosis (HCC) Dr. Rocha at counseling center PAST SURGICAL HISTORY Procedure Laterality Date ENDOSCOPY PROC FAMILY HISTORY Problem Relation Age of Onset Psychiatry Mother DEPRESSION,SUICIDAL IDEATION Cancer Mother cancer in the appendix Leukemia Mother Hypertension Father Heart Father OK Psychiatry Father DEPRESSION, bipolar COPD Father smoked from age 12 other (CHF) Father Diabetes Sister Depression Sister other (HTN) Sister Depression Brother other (htn) Brother Diabetes Brother Bipolar disorder Brother Psychiatry Brother Schizoaffective Alcohol/Drug Maternal Grandmother ALCOHOLIC Alzheimer's Disease Maternal Grandmother Arthritis Maternal Grandmother Colon Cancer Maternal Grandmother Psychiatry Maternal Grandmother Alcohol/Drug Maternal Grandfather ALCOHOLIC Stroke Maternal Grandfather Alcohol/Drug Paternal Grandmother ALCOHOLIC Heart Paternal Grandmother CHF Alcohol/Drug Paternal Grandfather ALCOHOLIC Heart Paternal Grandfather OK Stroke Paternal Grandfather Alzheimer's Disease Paternal Grandfather Diabetes Maternal Uncle Colon Cancer Maternal Uncle Cancer Maternal Uncle pancreatic cancer Breast Cancer Paternal Aunt Diabetes Paternal Aunt PAUNT X 5 Diabetes Paternal Uncle Autism Other Anxiety disorder Other Tourette syndrome Other Social History Tobacco Use Smoking status: Never Smokeless tobacco: Never Vaping Use Vaping Use: Never used Substance Use Topics Alcohol use: No Drug use: No PAIN EVALUATION 03/23/20232109 Pain Level: 6 Pain Location: Back Description: Aching;Dull;Radiating;Sharp;Shooti ng;Stiffness Duration Amount of Time: 36 Duration Units: Months Frequency: Continuous Intervention/Comfort measure: Medication;Reposition;Relaxation;P ositioning Comments: I've had back pain my entire adult life. It has worsened over the last 3 years. Many other symptoms as well. PROMIS Assessments PROMIS Assessments 10/21/2022 10/21/2022 03/23/2023 Physical Health Percentile 10% 10% 4% Mental Health Percentile 2% 2% 2% Pain Score 3 3 3 Pain Interference Percentile - - 2% Fatigue Percentile - - 1% Physical Function Percentile - - 4% RAPID 3 Gerardo Activities of Daily Living 03/23/2023 9:15 PM Dress self? With SOME difficulty Get in and out of bed? With SOME difficulty Walk outdoors? Without ANY difficulty Wash and dry body? With SOME difficulty Get in and out of car? With SOME difficulty RAPID 3 Disease Activity Weighed Score Levels: 0 - 1: Near Remission 1.3 - 2.0: Low Severity 2.3 - 4.0: Moderate Severity 4.3 - 10.0: High Severity RAPID-3 Weighed Score 03/23/2023 RAPID 3 Weighed Score 5.89 (High Severity (HS)) OBJECTIVE BP 189/96 Pulse 93 Wt 266 lb 1.5 oz (120.7kg) LMP 12/30/2022 Physical Exam Musculoskeletal: Tender points are absent. Compression of muscle groups are not tender. Spine: No limitations in flexion or extension. No TTP of the spine or paraspinal region. Fingertip to floor is cm. Shoulders: Intact ROM without reported pain. No appreciable swelling or tenderness with palpation. Neg impingement. Elbows: No flexion contractures. No appreciable swelling, deformities, or tenderness with palpation. No bursitis. No limited ROM Wrists: No limitation of flexion or extension. No appreciable swelling or tenderness with palpation. No limited ROM Hands: Able to make full fists bilaterally. CMC: No CMC squaring. Nontender. MCP: No synovitis. Nontender. PIP: No hypertrophic bony changes. No synovitis. Nontender. DIP: No hypertrophic bony changes. No synovitis. Nontender. Hips: No SI ttp. Painless log roll. Intact ROM. No tenderness with palpation of the lateral hip. REGINO negative. Knees: No gross deformity. No appreciable effusion. No tenderness with palpation of joint lines. No crepitus. Ankles: No limitation of plantarflexion or dorsiflexion. No appreciable effusion. No tenderness with palpation. Compression of Gipsy's tendon is not painful. Feet: No deformity. No evidence of synovitis or tenderness with palpation. Weight 01/08/2023 10/31/2022 02/20/2022 09/02/2021 07/18/2021 WEIGHT 274 lb 271 lb 270 lb 256 lb 12.8 oz 268 lb Some recent data might be hidden Blood Pressure 01/08/2023 10/31/2022 02/20/2022 07/18/2021 06/12/2021 Systolic 120 132 124 142 124 Diastolic 80 80 90 92 70 Some recent data might be hidden Labs and Imaging CBC Latest Ref Rng & Units 01/25/2021 04/17/2021 11/01/2022 WBC 3.70 - 11.00 k/uL Unable to assay. No specimen received. 5.93 6.20 HEMOGLOBIN 11.5 - 15.5 g/dL Unable to assay. No specimen received. 13.6 13.6 HEMOGLOBIN, LAURA 12.0 - 16.0 g/dL - - - HEMATOCRIT 36.0 - 46.0 % Unable to assay. No specimen received. 42.3 43.7 PLATELETS 150 - 400 k/uL Unable to assay. No specimen received. 265 287 ABS NEUT (ANC) 1.45 - 7.50 k/uL Unable to assay. No specimen received. 3.80 3.84 ABS NEUT, LAURA 2.0 - 8.1 k/uL - - - ABS LYMP, LAURA 1.0 - 5.5 k/uL - - - ABS LYMPH 1.00 - 4.00 k/uL Unable to assay. No specimen received. 1.75 1.91 CMP Latest Ref Rng & Units 01/25/2021 06/03/2021 11/01/2022 SODIUM 136 - 144 mmol/L Unable to assay. No specimen received. 139 138 SODIUM, LAURA 132 - 148 mmol/L - - - SODIUM, LAURA 132 - 148 mmol/L - - - POTASSIUM 3.7 - 5.1 mmol/L Unable to assay. No specimen received. 4.1 4.3 POTASSIUM, LAURA 3.5 - 5.0 mmol/L - - - CHLORIDE 97 - 105 mmol/L Unable to assay. No specimen received. 103 102 CHLORIDE, LAURA 98 - 110 mmol/L - - - CO2 22 - 30 mmol/L Unable to assay. No specimen received. 24 25 CO2, LAURA 23.0 - 32.0 mmol/L - - - GLUCOSE 74 - 99 mg/dL Unable to assay. No specimen received. 93 104(H) GLUCOSE, LAURA 65 - 100 mg/dL - - - BUN 7 - 21 mg/dL Unable to assay. No specimen received. 15 13 BUN, LAURA 10 - 25 mg/dL - - - CREATININE 0.58 - 0.96 mg/dL Unable to assay. No specimen received. 0.60 0.56(L) CREATININE, LAURA 0.7 - 1.4 mg/dL - - - CALCIUM, LAURA 8.5 - 10.5 mg/dL - - - CALCIUM, TOTAL 8.5 - 10.2 mg/dL Unable to assay. No specimen received. 9.5 9.8 AST 13 - 35 U/L - - 15 AST, LAURA 7 - 40 U/L - - - ALT 7 - 38 U/L - - 20 ALT, LAURA 0 - 45 U/L - - - ALKALINE PHOSPHATASE 34 - 123 U/L - - 81 ESR, WSR Latest Ref Rng & Units 08/15/2013 07/04/2015 11/01/2022 WSR 0 - 20 mm/hr 9 16(H) 15 CRP Latest Ref Rng & Units 07/04/2015 11/01/2022 CRP <0.9 mg/dL 1.4(H) 1.4(H) RF and CCP Latest Ref Rng & Units 11/01/2022 RHEUMATOID FACTOR <16 IU/mL <10 Hepatitis Screen Latest Ref Rng & Units 10/20/2005 02/24/2019 HBSAG Negative Negative Negative Antibodies Latest Ref Rng & Units 11/01/2022 KYLE Negative Negative Urinalysis Latest Ref Rng & Units 10/20/2005 11/18/2005 07/04/2015 PROTEIN, URINE Negative mg/dL n n Negative RBC, URINE 0 - 3 /HPF - - 0-3 Last XR Knee - Impression Only XR KNEE GENERAL 4V AP BOTH/PA BOTH/LAT/MERC BILAT Exam End: 08/06/2020 9:42 AM (Final result) Impression: IMPRESSION: Tricompartmental degenerative changes of bilateral knees without acute osseous abnormality or joint effusion. 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 ASSESSMENT & PLAN Patient with long-standing history of generalized musculoskeletal pain considered secondary to degenerative joint disease and central sensitization with compounding inflammatory arthritis previously managed by Dr. Mario Ambrosio. Symptoms have been recalcitrant to NSAIDs, Acetaminophen, oral and intraarticular glucocorticoids, immunomodulatory therapy, conventional DMARDs, Gabapentin, Tramadol, cognitive behavioral and Physical Therapy to date. As stated in HPI, unable to chart review previous Rheumatology clinic notes as Dr. Ambrosio utilized paper charting. Per patient and updated serologies in April 2022, studies and imaging have been unremarkable for objective findings of rheumatologic disease or marginal erosive joint disease, with exception of nondescript acute phase reactant elevations. Suspicion for a rheumatologic disease or inflammatory condition contributing to patient's symptomology is currently low given clinical presentation (constellation of multisystemic symptoms) and absence of active synovitis on physical exam. Additional plain films and serologies will be obtained, however, for further evaluation prior to establishing updated treatment regimen. Diagnoses: (R52) Diffuse pain (M54.50, G89.29) Chronic bilateral low back pain without sciatica Orders from this visit: Office Visit on 03/26/23 XR LUMBAR PARS DEFECT 4V AP/LAT/BOTH OBL XR SACROILIAC JOINTS 2V AP PELVIS/FERGUESON CONSULT TO RHEUM/IMMUN DISEASE CONSULT TO [facility] (CHRONIC PAIN) Plan: Reviewed with patient at length the clinical manifestations, co-existent syndromes, and recognized triggers of Fibromyalgia Detailed that fibromyalgia is a chronic, non-inflammatory, non-autoimmune central afferent processing disorder leading to a diffuse pain syndrome Discussed the importance and responsibilities of her role in disease management Outlined expectations regarding activity, sleep hygiene, and self-management Informed patient that the evidence suggests that non-pharmacologic therapies offer a higher degree of impact of generalized pain than medication therapy alone Including, but not limited to: Aquatic therapy - patient is provided with a referral to enroll in generalized strengthening program Routine, low-grade aerobic exercise (stationary bike, Pilates, walking) Relaxation techniques (meditation, Se Chi) Improve sleep hygiene and optimizing deep sleep phase 3/4 NREM Appropriately address anxiety and depression Optimal weight management Discussed that there is no single therapy that is completely effective for symptom relief, but that it is rather multifactorial Patient is provided with a consult to the [facility] to provide one-on-one support, establish care with a pain psychiatrist, and discuss Gabapentin alternatives, such as low-dose Naltrexone and Ketamine infusions Patient's oral Gabapentin will be maximized to 600-mg daily until appointment can be made Reviewed with patient clinical manifestations of Osteoarthritis (OA) Reviewed with patient the pathogenesis of OA Reviewed that treatment is symptomatic and include: [id number] topical treatments: Aspercreme, Biofreeze, etc. Acetaminophen 500-1000 mg up to 3 times a day as needed Topical (Voltaren gel) and oral NSAIDs Glucosamine/chondroitin sulfate Duloxetine Reviewed with patient importance of non-pharmacologic therapies in improving generalized pain, fatigue, and quality of life Including, but not limited to: Aquatic therapy and/or routine, low-grade aerobic exercise (stationary bike, Pilates, walking) Relaxation techniques (meditation, Se Chi) Sleep hygiene and optimizing deep sleep phase 3/4 NREM Appropriately addressing feelings of either anxiety and depression Optimal weight management Patient is advised to contact me on MyChart or by phone if symptoms worsen or disease flares during upcoming appointment interim Return in 1 year (on 03/26/2024) for Fibromyalgia follow-up. I spent a total of 120 minutes on the date of the service which included preparing to see the patient, [id number] patient care, completing clinical documentation, obtaining and/or reviewing separately obtained history, performing a medically appropriate examination, counseling and educating the patient/family/caregiver, ordering medications, tests, or procedures, independently interpreting results (not separately reported), and communicating results to the patient/family/caregiver. Kae Lennon PA-C Rheumatology Date: March 26, 2023 documented in this encounter [facility] 11-25-2022 Miscellaneous Notes Addended by: TICO ROOT on: 11/25/2022 11:45 AM Modules accepted: Orders Appears to be $15-$20 at [facility] using Goodrx coupon. documented in this encounter [facility] 10-31-2022 Instructions Tico Root APRN.CNS - 10/31/2022 1:25 PM EDT Consider getting COVID-19 booster and hepatitis B vaccine either in clinic or at local pharmacy. Okay to take phentermine as long as you are not currently taking Adderall. Regarding phentermine: May continue on therapy after 12 weeks Need to be seen at least every 3 months to check weight, blood pressure, and heart rate Will not not to continue in patients who have not achieved a weight loss of at least 5% of the initial weight, during the initial three month Recommend portion control and daily could be exercise such as walking to help with weight loss. documented in this encounter [facility] 10-31-2022 History of Present illness Narrative SUBJECTIVE: Hepatitis B Vaccine(1 of 3 - 3-dose series) Never done Covid-19 Vaccine(4 - Pfizer series) due on 06/07/2021 Mammogram Screening due on 04/17/2022 Influenza Vaccine(1) due on 10/10/2022 HPI Lyndon Burroughs is a 42 year old female. PMH significant for ACTIVE PROBLEM LIST Generalized Anxiety Disorder Major Depressive Disorder in Partial Remission (Hcc) Morbid Obesity Due to Excess Calories (Hcc) Adhd (Attention Deficit Hyperactivity Disorder), Combined Type Social Anxiety Disorder Personality Traits Affecting Medical Condition Dysthymia Chronic Bilateral Low Back Pain Without Sciatica Autism Spectrum Disorder Mixed Obsessional Thoughts and Acts PCP: Errol Luu MD Breast biopsy on right completed July 03, [address] Mckeon [facility]. Followed by Solo Betancourt MD for ADHD, anxiety and depression. Presents for a routine visit today. Mom has leukemia and undergoing treatment at [facility]. Notes weight is increased. She reports trending up for a long time. She has been on phentermine in the past would like to resume. She reports previously has stopped Adderall and then taken phentermine for weight loss in the past and that is been effective. No current diet or exercise due to her mother's illness. She reports chronic insomnia trouble falling asleep and staying asleep for years. Has had sleep study and did not show ANTHONY. States she needs to be able to awaken for her daughter and mother if they need her during the night. Not interested in sleeping pill at this time, trazodone did not help. She reports chronic allover body pain. She notes chronic back pain and chronic knee pain. Currently taking diclofenac which is helping her knee pain somewhat. States her daughter has Cornelius-Danlos hypermobility. Advised she should follow-up regarding this for herself as well. Has not yet done so. She notes bruxism, has seen dentist regarding this. Notes not using mouthguard currently. Review of Systems Constitutional: Positive for unexpected weight change. Musculoskeletal: Positive for arthralgias and back pain. Psychiatric/Behavioral: Positive for decreased concentration, dysphoric mood and sleep disturbance. The patient is nervous/anxious. Objective BP 132/80 Pulse 83 Resp 16 Wt 122.9 kg (271 lb) LMP 02/14/2022 (Exact Date) BMI 43.74 kg/m Physical Exam Vitals and nursing note reviewed. Constitutional: Appearance: Normal appearance. HENT: Head: Normocephalic and atraumatic. Eyes: Conjunctiva/sclera: Conjunctivae normal. Cardiovascular: Rate and Rhythm: Normal rate and regular rhythm. Pulses: Carotid pulses are 2+ on the right side and 2+ on the left side. Radial pulses are 2+ on the right side and 2+ on the left side. Heart sounds: Normal heart sounds. Pulmonary: Effort: Pulmonary effort is normal. Breath sounds: Normal breath sounds. Abdominal: General: Bowel sounds are normal. Palpations: Abdomen is soft. Musculoskeletal: Right lower leg: No edema. Left lower leg: No edema. Skin: General: Skin is warm and dry. Neurological: General: No focal deficit present. Mental Status: She is alert and oriented to person, place, and time. ALLERGIES Allergen Reactions Latex Tomatoes Medications diclofenac, EC, (VOLTAREN) 75 mg EC tablet TAKE 1 TABLET BY MOUTH TWICE DAILY FOR PAIN Norethindrone, Contraceptive, (ORTHO MICRONOR) 0.35 mg tablet Take 1 tablet by mouth once daily. ketoconazole (NIZORAL) 2 % shampoo Apply 1 application to affected area two times a week. VITAMIN E ORAL Take by mouth once daily. MULTIVITAMIN ORAL Take by mouth once daily. AMOXICILLIN ORAL Take by mouth. dental LORazepam (ATIVAN) 0.5 mg Take 0.5 mg by mouth as needed. Amphetamine-Dextroamphetamine (ADDERALL) 30 mg tablet Take 30 mg by mouth once daily. Takes as needed amphetamine-dextroamphetamine 15 mg tablet Take 1 tablet by mouth once daily. MEDICAL SUPPLY Cane- WXUIGWF-MTAP-GNOFC-OREG-CAPRYL ORAL Take by mouth once daily. biotin/calcium carbonate (BIOTIN 100+10 ORAL) Take by mouth once daily. buPROPion XL (WELLBUTRIN XL) 150 mg 24 hr tablet Take 1 tablet by mouth once daily. magnesium oxide 400 mg magnesium tab Take 400 mg by mouth daily at bedtime. L-TYROSINE ORAL Take 1 capsule by mouth twice daily. Cholecalciferol, Vitamin D3, 5,000 unit tab Take 1 tablet by mouth once daily. PAST MEDICAL HISTORY Diagnosis Date ASCUS with positive high risk HPV cervical 05/2017 Mood disorder (HCC) counseling center Myopia, bilateral 12/23/2017 Obsessive-compulsive disorders Other specified anemias PMH - PAST MEDICAL HISTORY OF HIATAL HERNIA Psychosis (HCC) Dr. Rocha at counseling center Social History Tobacco Use Smoking status: Never Smokeless tobacco: Never Vaping Use Vaping Use: Never used Substance Use Topics Alcohol use: No Drug use: No Component Latest Ref Rng & Units 04/17/2021 06/03/2021 WBC 3.70 - 11.00 k/uL 5.93 RBC 3.90 - 5.20 m/uL 4.86 Hemoglobin 11.5 - 15.5 g/dL 13.6 Hematocrit 36.0 - 46.0 % 42.3 MCV 80.0 - 100.0 fL 87.0 MCH 26.0 - 34.0 pg 28.0 MCHC 30.5 - 36.0 g/dL 32.2 RDW-CV 11.5 - 15.0 % 13.2 Platelet Count 150 - 400 k/uL 265 MPV 9.0 - 12.7 fL 10.4 Neut% % 64.1 Abs Neut (ANC) 1.45 - 7.50 k/uL 3.80 Lymph% % 29.5 Abs Lymph 1.00 - 4.00 k/uL 1.75 Marshall% % 4.7 Abs Marshall <0.87 k/uL 0.28 Eosin% % 1.0 Abs Eosin <0.46 k/uL 0.06 Baso% % 0.5 Abs Baso <0.11 k/uL 0.03 Immature Gran % % 0.2 IMMATURE GRANS (ABS) <0.10 k/uL <0.03 NRBC /100 WBC 0.0 Absolute nRBC <0.01 k/uL <0.01 DTYPE Auto Glucose 74 - 99 mg/dL 93 BUN 7 - 21 mg/dL 15 Creatinine 0.58 - 0.96 mg/dL 0.60 Sodium 136 - 144 mmol/L 139 Potassium 3.7 - 5.1 mmol/L 4.1 Chloride 97 - 105 mmol/L 103 CO2 22 - 30 mmol/L 24 Anion Gap 9 - 18 mmol/L 12 Calcium 8.5 - 10.2 mg/dL 9.5 eGFR >=60 mL/min/1.73m 115 Total Cholesterol, Nonfasting <200 mg/dL 190 Triglycerides, Nonfasting <150 mg/dL 197 (H) HDL Cholesterol, Nonfasting >39 mg/dL 37 (L) LDL Cholesterol, Nonfasting <100 mg/dL 114 (H) Non HDL Cholesterol, Nonfasting <130 mg/dL 153 (H) VLDL Cholesterol, Nonfasting <30 mg/dL 39 (H) Total Chol/HDL Ratio, Nonfasting <5.10 mg/dL 5.14 (H) LDL/HDL Ratio, Nonfasting <2.54 mg/dL 3.08 (H) Hemoglobin A1C 4.3 - 5.6 % 5.1 Estimated Average Glucose mg/dL 100 ASSESSMENT/PLAN: 1. Morbid obesity with BMI of 40.0-44.9, adult (HCC) - ICD9: 278.01, V85.41, ICD10: E66.01, Z68.41 (primary diagnosis) - PHENTERMINE 37.5 MG TABLET - CON[facility]ULT [facility] 2. Encounter for immunization - ICD9: V03.89, ICD10: Z23 - INFLUENZA VACCINE, AGE 6 MO - 64 YR, QUADRIVALENT (AFLURIA, FLULAVAL, FLUZONE) 3. Weight gain - ICD9: 783.1, ICD10: R63.5 - COMP METABOLIC PANEL - CBC + DIFF - TSH BLD - IRON + TIBC - FERRITIN BLD - VITAMIN D 25 HYDROXY 4. Morbid obesity due to excess calories (HCC) - ICD9: 278.01, ICD10: E66.01 - TOX SCREEN ROUT UR - [facility] 5. Chronic insomnia - ICD9: 780.52, ICD10: F51.04 - CONSULT TO SLEEP MEDICINE - ADULT 6. Diffuse pain - ICD9: 780.96, ICD10: R52 - SED RATE WESTERGREN - RHEUMATOID FACTOR BL - KYLE BY IFA SCREEN - C-REACTIVE PROTEIN (CRP) - CONSULT TO RHEUM/IMMUN DISEASE 7. ADHD (attention deficit hyperactivity disorder), combined type - ICD9: 314.01, ICD10: F90.2 8. Social anxiety disorder - ICD9: 300.23, ICD10: F40.10 9. Dysthymia - ICD9: 300.4, ICD10: F34.1 Seeing psychiatrist and taking bupropion, Adderall and lorazepam. 10. Chronic bilateral low back pain without sciatica - ICD9: 724.2, 338.29, ICD10: M54.50, G89.29 - SED RATE WESTERGREN - RHEUMATOID FACTOR BL - KYLE BY IFA SCREEN - C-REACTIVE PROTEIN (CRP) - CONSULT TO RHEUM/IMMUN DISEASE Endorse portion control and routine exercise. Labs today. Schedule appointments with specialists if so desires. 3 mo follow up Tico Root APRN.BATCH AND FURNACE MANAGER Tico Root APRN.LAURA Medical Decision Making: Problems: Moderate: 2+ stable chronic illnesses Data: Unique test(s) ordered: 3+ Risk: Moderate: Drug management Medical Decision Making Level: 4 - Moderate documented in this encounter [facility] 07-10-2022 Miscellaneous Notes Pt has an apt scheduled for 07/16/22. Yara Lock LPN Left a message for pt to call the office and ask to speak to a nurse. Yara Lock LPN Patient needing to contact provider who has been prescribing this for her. She has also not been seen in a year so needs an annual exam Thank you Kiara Pedraza APRN.SANDRA documented in this encounter [facility] 02-20-2022 History of Present illness Narrative FOLLOW UP VISIT - POST RIGHT ULTRASOUND GUIDED CORE BIOPSY NAME: Lyndon Alvarez [facility] NO.: [id number] DATE OF SERVICE: February 20, 2022 : 1980 REFERRING PHYSICIAN: Errol Luu MD Lyndon is a patient I am following for abnormal right breast imaging. The patient is a 40 year old female with a complaint of an abnormal mammogram. The patient had a mammogram initially for screening on April 17, 2021 followed up with a tomogram with ultrasound on June 05, 2021 which demonstrated: IMPRESSION: SUSPICIOUS FINDING - BIOPSY SHOULD BE CONSIDERED The 2.5 cm irregular equal density asymmetry in the right breast is suspicious of malignancy. An ultrasound guided biopsy is recommended. LIMITED ULTRASOUND OF RIGHT BREAST: 06/05/2021 RESULT: Comparison is made to exams dated: 04/17/2021 mammogram, 03/21/2020 mammogram, 03/01/2020 mammogram, 03/23/2019 mammogram, and 09/22/2018 mammogram - [facility]. Color flow and real-time ultrasound of the right breast 5 o'clock and 12 o'clock regions were performed. Greene scale images of the real-time examination were reviewed. There is 1.8 cm x 1.7 cm x 2.2 cm irregular mass with an angular margin in the right breast at 5 o'clock posterior depth 1 cm from the nipple. This irregular mass is hypoechoic with internal echoes. This correlates with mammography findings. There is no axillary adenopathy. There also is a benign 5 mm cyst in the right breast at 11 o'clock posterior depth. This correlates with mammography findings. Color flow imaging demonstrates that there is no vascularity present. IMPRESSION: SUSPICIOUS FINDING - BIOPSY SHOULD BE CONSIDERED The 1.8 cm x 1.7 cm x 2.2 cm irregular mass in the right breast at 5 o'clock posterior depth is suspicious of malignancy. An ultrasound guided biopsy is recommended. The 5 mm cyst in the right breast at 11 o'clock posterior depth is benign. LIMITED ULTRASOUND OF BOTH BREASTS: 06/05/2021 RESULT: Comparison is made to exams dated: 04/17/2021 mammogram, 03/21/2020 mammogram, 03/01/2020 mammogram, 03/23/2019 mammogram, and 09/22/2018 mammogram - [facility]. Color flow and real-time ultrasound of the right breast and color flow and real-time ultrasound of the left breast 2 o'clock region were performed. Grenee scale images of the real-time examination were reviewed. Prior cyst is no longer seen left breast. IMPRESSION: NEGATIVE There is no sonographic evidence of malignancy. Liana eckert/raffi:06/05/2021 14:55:02 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: Raffi Transcribe Date/Time: Jun 05 2021 2:09P Dictated by : LIANA KIDD MD This examination was interpreted and the report reviewed and electronically signed by: LIANA KIDD MD on Jun 05 2021 2:55PM EST Results-Findings * * *Final Report* * * DATE OF EXAM: Jun 05 2021 2:46PM [id number] - [facility] [employer] BREAST [place] RT / PROCEDURE REASON: Abnormal mammogram * * * * Physician Interpretation * * * * #[id number] - [facility] DIAG W JUVE RT #[id number] - [facility] [employer] BREAST LTD LT #[id number] - [facility] [employer] BREAST [facility] RT UNILATERAL RIGHT DIGITAL DIAGNOSTIC MAMMOGRAM TOMOSYNTHESIS WITH CAD: 06/05/2021 HISTORY: Abnormal Mammogramcall back right dx, and ultrasound of the leftl. Abnormal Mammogram Abnormal Mammogram. RESULT: TECHNIQUE: The study was acquired using full field digital technology and interpreted from soft copy. Digital Breast Tomosynthesis (DBT) images were obtained and used to assist in the interpretation of this examination. Current study was also evaluated with a Computer Aided Detection (CAD). Comparison is made to exams dated: 04/17/2021 mammogram, 03/21/2020 mammogram, 03/01/2020 mammogram, 03/23/2019 mammogram, and 09/22/2018 mammogram - [facility]. There are scattered fibroglandular elements in right breast. There is a 5 mm benign appearing asymmetry in the right breast at 11 o'clock. There is a 2.5 cm irregular equal density asymmetry with an indistinct margin in the right breast at 5 o'clock middle depth. No other significant masses or calcifications are seen in the breast. The patient denies a history of breast masses but does note significant fibrocystic changes in her breast. She states that she frequently gets called back for mammograms and ultrasounds for abnormalities in this location however the ultrasound image looks more concerning this year than in past years. She does perform a self breast exam routinely. She notes no skin changes. She denies nipple discharge. She notes no axillary masses. She notes no family history of breast problems. She notes no significant breast trauma or breast difficulties in the past. The patient has had 1 . Her last mammogram was March 2020. Her last menstrual period was May 27. Her first menstrual period was at age 14. The patient is being seen by me at the request of Kiara Pedraza APRN.CHROME CLEANER my opinion and advice regarding abnormal right breast imaging. I was not able to completely identify the abnormality to my shortness therapy biopsy in the same site in the office and referred her for radiologist directed ultrasound-guided biopsy. The patient underwent ultrasound-guided biopsy on July 03, 2021. Her pathology demonstrated: FINAL DIAGNOSIS A. 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 The patient noted bruising since the procedure that is since resolved. She returns now for 6-month follow-up. She had her bilateral mammogram performed yesterday. This demonstrated no abnormalities. -BI-RADS 1 return to annual screening VITALS: Blood pressure 124/90, pulse 94, temperature 36.6 C (97.8 F), temperature source Temporal, resp. rate 14, height 167.6 cm (5' 6), weight 122.5 kg (270 lb), last menstrual period 02/14/2022, SpO2 98 %. On examination, the right side breast biopsy site is held. Her bilateral breast exam reveals benign feeling nodules without suspicious areas. There are no axillary masses or areas of suspicion. She has no skin changes dimpling retractions or other difficulties. There is no residual bruising of the site. Assessment IMPRESSION: status post ultrasound guided core biopsy for right side breast PASH. PLAN: If Lyndon notes any problems, she should contact me immediately. I reminded her about the importance of self - breast exam. I recommend she perform monthly self breast exams. She may return to her normal screening. 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 Sylvain Mckeon MD documented in this encounter [facility] 02-19-2022 Miscellaneous Notes February 19, 2022 PID: [id number] Lyndon Burroughs [facility] [address] [address] Dear Ms. Burroughs, We are pleased to inform you that the results of your recent breast imaging exam on 02/19/2022 are normal. Early detection of cancer is very important. We also understand recommendations regarding breast cancer screening are controversial. Please discuss with your primary care provider which strategy is best for you and whether a mammogram is right for you. Your imaging studies and report will be kept on file at [facility] as part of your permanent medical record and are available for your continuing care. Thank you for allowing us to help in meeting your health care needs. Sincerely, Dr. Crawford Interpreting Radiologist [facility] (Normal over 40) documented in this encounter [facility] 02-14-2022 Miscellaneous Notes Patient has been identified by name and date of : No Patient phones for refill(s): Requested Prescriptions Pending Prescriptions Disp Refills ketoconazole (NIZORAL) 2 % shampoo 120 mL 0 Sig: Apply 1 application to affected area two times a week. Date of last office visit in primary care: 04/10/2021 Last 2 Encounter Wt Readings: Date: Wt: 09/02/2021 116.5 kg (256 lb 12.8 oz) 07/18/2021 121.6 kg (268 lb) Previous labs/tests for medication: Not applicable Please advise. Thank you. Lynette Braun LPN documented in this encounter [facility] 09-02-2021 History of Present illness Narrative Associated Order(s): Large Joint Arthro/Inj: bilateral knee joints Post-Procedure Diagnose(s): Primary osteoarthritis of both knees Large Joint Arthro/Inj: bilateral knee joints Informed Consent Consent Obtained: Verbal Waterfall Protocol A moment to CARE was completed. SIGN IN Sign in communication not applicable due to emergent procedure. Personnel directly involved with the procedure wore the appropriate PPE. Special Equipment: N/A Patient/Surrogate Stated/Verified: Patient name, Date of , Relevant allergies and Intended procedure TIME OUT Intended patient and procedure match the source document(s). Consent documented and matches the intended procedure. Relevant labs, photos, and/or imaging studies have been reviewed. Correct side/site marked and visible. Medications required for procedure verified. No fire risk assessment and interventions applicable. No implant(s) inserted. 09/02/2021 2:37 PM The procedure site was prepped in the usual sterile fashion. Site: bilateral knee joints Medications (Right): 6 mg betamethasone acetate-betamethasone sodium phosphate 6 mg/mL Medications (Left): 6 mg betamethasone acetate-betamethasone sodium phosphate 6 mg/mL Anesthetics (Right): 5 mL lidocaine (PF) 10 mg/mL (1 %) Anesthetics (Left): 5 mL lidocaine (PF) 10 mg/mL (1 %) Outcome: Tolerated well, no immediate complications Post-injection instructions were reviewed with the patient and the patient voiced understanding of these instructions. SIGN OUT Post-procedure follow-up management communicated and Plan of Care Visit completed when applicable Patient presents with: Right Knee - Established Patient Left Knee - Established Patient 13 weeks post OV chondromalacia bilateral patella: with injections given, wants injections AMB ROOMING INTAKE FLOWSHEET DATA Risk Screening Do you have concerns about personal safety or safety in the home?: No Pain Pain Level: (3-6) Pain Location: (bilateral knees) Description: Aching, Sharp, Stabbing/Not Incision Duration Amount of Time: 3 Duration Units: Weeks Frequency: Continuous Intervention/Comfort measure: Medication Comments: diclofenac and Tylenol daily, but no longer helping documented in this encounter [facility] 08-01-2021 Miscellaneous Notes Rx sent. Sometimes it is an insurance issue and they will only cover 1 month at a time. Hopefully they cover the 90 days! .Yahaira Daniels APRN.CNM Patient requesting 90 day Rx of OCP. Last seen 04/17/21 for annual exam. Josey Hutchinson RN documented in this encounter [facility] 08-01-2021 Miscellaneous Notes Last OV 06/03/21 Last refill 06/29/21 documented in this encounter [facility] 07-04-2021 Miscellaneous Notes Lyndon had her right breast biopsy at [facility] on 07/03/2021. Eduarda Price RN Images from the original note were not included. Sylvain Mckeon MD P [facility] General Surgery Pool Please make sure the patient is scheduled for ultrasound-guided biopsy for her right breast abnormality-thanks Rich Email sent to Valeria Del Rosario and Becky Eller, nurse navigators at the breast center at [facility], to schedule an ultrasound guided biopsy of Brittni right breast. Eduarda Price RN documented in this encounter [facility] 07-03-2021 History of Present illness Narrative Radiology Service Progress Note PATIENT NAME: Lyndon Burroughs DATE OF SERVICE: July 03, 2021 TIME: 9:35 AM PATIENT IDENTITY VERIFICATION COMPLETED USING TWO (2) IDENTIFIERS: Name and Date of confirmed by patient verbally and Name and Date of confirmed by identification band. FALL SCREENING: Has the patient had 2 falls in the last year or 1 fall with injury or currently using an Ambulatory Assistive Device (Walker, Cane, Wheelchair, Crutches, etc.)? No PATIENT GENDER DATA: Female. status: : No status: NO. PATIENT RELEVANT IMPLANT DATA REVIEWED: Not Applicable RADIOLOGY DEPARTMENT: Biopsy PERIPHERAL IV DATA: Not applicable SIGNED BY: FIORDALIZA Henson July 03, 2021 9:35 AM documented in this encounter [facility] 06-12-2021 History of Present illness Narrative HISTORY AND PHYSICAL - BREAST COMPLAINT Lyndon Burroughs 1980 REFERRING PHYSICIAN: Kiara Pedraza APRN.CNP CHIEF COMPLAINT: Abnormal right breast imaging HPI: The patient is a 40 year old female with a complaint of an abnormal mammogram. The patient had a mammogram initially for screening on April 17, 2021 followed up with a tomogram with ultrasound on June 05, 2021 which demonstrated: IMPRESSION: SUSPICIOUS FINDING - BIOPSY SHOULD BE CONSIDERED The 2.5 cm irregular equal density asymmetry in the right breast is suspicious of malignancy. An ultrasound guided biopsy is recommended. LIMITED ULTRASOUND OF RIGHT BREAST: 06/05/2021 RESULT: Comparison is made to exams dated: 04/17/2021 mammogram, 03/21/2020 mammogram, 03/01/2020 mammogram, 03/23/2019 mammogram, and 09/22/2018 mammogram - [facility]. Color flow and real-time ultrasound of the right breast 5 o'clock and 12 o'clock regions were performed. Greene scale images of the real-time examination were reviewed. There is 1.8 cm x 1.7 cm x 2.2 cm irregular mass with an angular margin in the right breast at 5 o'clock posterior depth 1 cm from the nipple. This irregular mass is hypoechoic with internal echoes. This correlates with mammography findings. There is no axillary adenopathy. There also is a benign 5 mm cyst in the right breast at 11 o'clock posterior depth. This correlates with mammography findings. Color flow imaging demonstrates that there is no vascularity present. IMPRESSION: SUSPICIOUS FINDING - BIOPSY SHOULD BE CONSIDERED The 1.8 cm x 1.7 cm x 2.2 cm irregular mass in the right breast at 5 o'clock posterior depth is suspicious of malignancy. An ultrasound guided biopsy is recommended. The 5 mm cyst in the right breast at 11 o'clock posterior depth is benign. LIMITED ULTRASOUND OF BOTH BREASTS: 06/05/2021 RESULT: Comparison is made to exams dated: 04/17/2021 mammogram, 03/21/2020 mammogram, 03/01/2020 mammogram, 03/23/2019 mammogram, and 09/22/2018 mammogram - [facility]. Color flow and real-time ultrasound of the right breast and color flow and real-time ultrasound of the left breast 2 o'clock region were performed. Greene scale images of the real-time examination were reviewed. Prior cyst is no longer seen left breast. IMPRESSION: NEGATIVE There is no sonographic evidence of malignancy. Liana eckert/raffi:06/05/2021 14:55:02 Multiple national specialty organizations have released breast cancer screening guidelines for women at average risk for developing breast cancer - guidelines that are based on both evidence and opinion, yet differ on when to start and how often to screen for breast cancer. With representation from Breast Imaging, Internal Medicine, Women's Health, Family Medicine, and Medical/Surgical Oncology, the [facility] has carefully reviewed the data and reached the following consensus: 1) All women should engage in shared decision-making with their providers to decide when to start and how often to screen; 2) All women should have the opportunity to start screening mammography at age 40; 3) For women ages 45-55, we recommend annual screening mammograms; 4) For women ages 55 and over, we support both the transition from an annual to a biennial interval if this aligns more with patient's values and preferences, or continuation with annual screening; 5) All women should discuss with their providers when to stop screening mammograms. Laminating Press Operator(s): Dorcas Canales, RT(R)(M), [facility]; Rosie Jernigan, [facility] OVERALL STUDY BIRADS: 4 Suspicious finding - Biopsy should be considered 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: Raffi Transcribe Date/Time: Jun 05 2021 2:09P Dictated by : LIANA KIDD MD This examination was interpreted and the report reviewed and electronically signed by: LIANA KIDD MD on Jun 05 2021 2:55PM EST Results-Findings * * *Final Report* * * DATE OF EXAM: Jun 05 2021 2:46PM [id number] - [facility] [employer] BREAST LTD RT / PROCEDURE REASON: Abnormal mammogram * * * * Physician Interpretation * * * * #[id number] - [facility] DIAG W JUVE RT #[id number] - [facility] US BREAST LTD LT #[id number] - [facility] US BREAST LTD RT UNILATERAL RIGHT DIGITAL DIAGNOSTIC MAMMOGRAM TOMOSYNTHESIS WITH CAD: 06/05/2021 HISTORY: Abnormal Mammogramcall back right dx, and ultrasound of the leftl. Abnormal Mammogram Abnormal Mammogram. RESULT: TECHNIQUE: The study was acquired using full field digital technology and interpreted from soft copy. Digital Breast Tomosynthesis (DBT) images were obtained and used to assist in the interpretation of this examination. Current study was also evaluated with a Computer Aided Detection (CAD). Comparison is made to exams dated: 04/17/2021 mammogram, 03/21/2020 mammogram, 03/01/2020 mammogram, 03/23/2019 mammogram, and 09/22/2018 mammogram - [facility]. There are scattered fibroglandular elements in right breast. There is a 5 mm benign appearing asymmetry in the right breast at 11 o'clock. There is a 2.5 cm irregular equal density asymmetry with an indistinct margin in the right breast at 5 o'clock middle depth. No other significant masses or calcifications are seen in the breast. The patient denies a history of breast masses but does note significant fibrocystic changes in her breast. She states that she frequently gets called back for mammograms and ultrasounds for abnormalities in this location however the ultrasound image looks more concerning this year than in past years. She does perform a self breast exam routinely. She notes no skin changes. She denies nipple discharge. She notes no axillary masses. She notes no family history of breast problems. She notes no significant breast trauma or breast difficulties in the past. The patient has had 1 . Her last mammogram was March 2020. Her last menstrual period was May 27. Her first menstrual period was at age 14. The patient is being seen by me today at the request of Kiara Pedraza APRN.SANDRA my opinion and advice regarding abnormal right breast imaging. PAST MEDICAL HISTORY Diagnosis Date ASCUS with positive high risk HPV cervical 05/2017 Mood disorder (HCC) counseling center Myopia, bilateral 12/23/2017 Obsessive-compulsive disorders Other specified anemias PMH - PAST MEDICAL HISTORY OF HIATAL HERNIA Psychosis ([facility]) Dr. Rocha at counseling center PAST SURGICAL HISTORY Procedure Laterality Date ENDOSCOPY PROC Current Outpatient Medications Medication Sig Dispense Refill MULTIVITAMIN ORAL Take by mouth once daily. diclofenac, EC, (VOLTAREN) 75 mg EC tablet Take 1 tablet by mouth twice daily. FOR PAIN 60 tablet 0 Norethindrone, Contraceptive, (ORTHO MICRONOR) 0.35 mg tablet Take 1 tablet by mouth once daily. 28 tablet 1 LORazepam (ATIVAN) 0.5 mg Take 0.5 mg by mouth as needed. Amphetamine-Dextroamphetamine (ADDERALL) 30 mg tablet Take 1 tablet by mouth once daily. 0 amphetamine-dextroamphetamine (ADDERALL) 15 mg tablet Take 1 tablet by mouth once daily. 0 MEDICAL SUPPLY Cane- 1 Each 0 ketoconazole (NIZORAL) 2 % shampoo Apply 1 application to affected area two times a week. 120 mL 0 LRHYYJW-COZC-CQEIU-OREG-CAPRYL ORAL Take by mouth. biotin/calcium carbonate (BIOTIN 100+10 ORAL) Take by mouth. buPROPion XL (WELLBUTRIN XL) 150 mg 24 hr tablet Take 1 tablet by mouth once daily. 90 tablet 3 magnesium oxide 400 mg magnesium tab Take 400 mg by mouth daily at bedtime. Cholecalciferol, Vitamin D3, 5,000 unit tab Take 1 tablet by mouth once daily. 0 AMOXICILLIN ORAL Take by mouth. dental lisdexamfetamine (VYVANSE) 30 mg capsule Take 1 capsule by mouth once daily for 30 days. Do not start before November 02, 2020. 30 capsule 0 gluc zimmerman/chondro zimmerman A/vit C/Mn (GLUCOSAMINE 1500 COMPLEX ORAL) Take by mouth. (Patient not taking: Reported on 06/12/2021 ) hhrxcebynlx-euuopr-ehno-collag [id number] mg tab Take 1 tablet by mouth once daily. (Patient not taking: Reported on 05/27/2021 ) venlafaxine ER (EFFEXOR XR) 37.5 mg 24 hr capsule Take 1 capsule by mouth once daily. (Patient not taking: Reported on 11/12/2020 ) 30 capsule 2 L-TYROSINE ORAL Take 1 capsule by mouth twice daily. (Patient not taking: Reported on 05/27/2021 ) vitamin b complex (B COMPLETE) tab Take 1 tablet by mouth once daily. (Patient not taking: Reported on 06/12/2021 ) 0 No current facility-administered medications for this visit. ALLERGIES: Latex and Tomatoes PERSONAL HISTORY: Social History Tobacco Use Smoking status: Never Smoker Smokeless tobacco: Never Used Vaping Use Vaping Use: Never used Substance Use Topics Alcohol use: No Drug use: No FAMILY HISTORY: FAMILY HISTORY Problem Relation Age of Onset Psychiatry Mother DEPRESSION,SUICIDAL IDEATION Cancer Mother cancer in the appendix Hypertension Father Heart Father [place] Psychiatry Father DEPRESSION, bipolar COPD Father smoked from age 12 other (CHF) Father Diabetes Sister Depression Sister other (HTN) Sister Depression Brother other (htn) Brother Diabetes Brother Bipolar disorder Brother Psychiatry Brother Schizoaffective Alcohol/Drug Maternal Grandmother ALCOHOLIC Alzheimer's Disease Maternal Grandmother Arthritis Maternal Grandmother Colon Cancer Maternal Grandmother Psychiatry Maternal Grandmother Alcohol/Drug Maternal Grandfather ALCOHOLIC Stroke Maternal Grandfather Alcohol/Drug Paternal Grandmother ALCOHOLIC Heart Paternal Grandmother CHF Alcohol/Drug Paternal Grandfather ALCOHOLIC Heart Paternal Grandfather OK Stroke Paternal Grandfather Alzheimer's Disease Paternal Grandfather Diabetes Maternal Uncle Colon Cancer Maternal Uncle Cancer Maternal Uncle pancreatic cancer Breast Cancer Paternal Aunt Diabetes Paternal Aunt PAUNT X 5 Diabetes Paternal Uncle Autism Other Anxiety disorder Other Tourette syndrome Other REVIEW OF SYMPTOMS: The review of systems data was entered by the nurse and reviewed by me Nursing Notes: Eduarda Price RN 06/12/2021 8:49 AM Signed REVIEW OF SYSTEMS: General: The patient NOTES fatigue, denies weight loss, denies weight gain, denies feeling hot, and denies feelings of cold. Eyes: The patient denies glaucoma, denies eye injury/surgery, wears glasses or contacts. Ear/Nose/Throat: The patient NOTES allergies, denies hayfever, denies ear infections, and denies bloody noses. Cardiovascular: The patient denies chest pain, denies heart disease, denies high blood pressure,denies cardiac stent, denies prior heart attack, denies irregular heart beat, denies high cholesterol, denies poor circulation, denies heart failure, other cardiac issues, denies claudication, denies cold feet, denies peripheral arterial stent. Respiratory: The patient denies tuberculosis, denies pneumonia, denies frequent cough, denies pulmonary embolism, denies shortness of breath, and denies coughing up blood. Gastrointestinal: The patient denies difficulty swallowing, NOTES acid reflux, denies ulcers, NOTES vomiting, denies jaundice/hepatitis, denies gallbladder problems, denies black or tarry stools, denies hemorrhoids, denies bleeding from rectum, denies diverticulitis, denies constipation, denies diarrhea, denies loss of stool control, and NOTES hernias. Kidney/Bladder: The patient denies kidney stones, denies urine infections, and denies bloody urine. Skin: The patient denies a history of skin cancer, denies bleeding/changing moles, and denies a history of skin rash. Neurologic: The patient denies a history of epilepsy/convulsions, NOTES headaches, denies head/spinal injuries, and denies stroke/TIA. Psychiatric: The patient NOTES psychiatric medications, NOTES depression, and denies voices, denies substance abuse. Endocrine: The patient denies thyroid disorders, denies diabetes, and denies hormonal problems. Hematologic: The patient denies a history of bruising, denies bleeding, and NOTES anemia, denies blood clots. Infections: The patient denies a history of measles and mumps, denies rheumatic fever, and NOTES sexually transmitted diseases. Musculoskeletal: The patient denies back pain/injury, NOTES back problems, denies sciatica, NOTES knee/foot trouble, NOTES arthritis, or denies gout. When was patient's last Mammogram screening? 06/05/2021 Last Colonoscopy: None Eduarda Price RN PHYSICAL EXAMINATION: General: The patient is 40 year old female, well nourished, well hydrated in no acute distress. The patient is oriented to time, place, and person. VITALS: Blood pressure 124/70, pulse 120, temperature 36.4 C (97.6 F), height 167.6 cm (5' 6), weight 120.9 kg (266 lb 9.6 oz), last menstrual period 04/09/2021, SpO2 99 %. Body mass index is 43.03 kg/m . HEENT: Normal cephalic, ataumatic, pupils are equally round, sclera are anicteric, mucous membranes are moist, oropharynx is clear. Neck has no masses, asymmetry or lymphadenopathy. Thyroid is unremarkable. Respiratory: Clear to auscultation and percussion. Normal respiratory excursion and pattern. Cardiac: Examination is regular rate and rhythm. Abdominal exam: Soft, nontender, with no palpable masses. No hepatosplenomegaly. No palpable hernias. Rectal exam: exam deferred Extremities: no clubbing, cyanosis or edema. No adenopathy. Breast: Visual inspection reveals no retractions, nipple inversion, or skin changes. Palpation of the right breast reveals no dominant or suspicious masses, but multiple benign-feeling nodules. No specific obvious abnormality was felt at the expected location on ultrasound palpation of the left breast reveals no dominant or suspicious masses, but multiple benign-feeling nodules. Axillary exam demonstrates no suspicious masses in either the left or right axilla. There is no nipple discharge expressed from either the left or right breast. LABORATORY VALUES: As Noted RADIOLOGIC STUDIES: As Noted Intraoffice ultrasound was performed. Vague asymmetries with ductal images were noted in the approximate area but no obvious mass and certainly no obvious shadowing demonstrating similar images noted on the official ultrasound Assessment IMPRESSION: Right breast 5:00 abnormality on ultrasound recommended biopsy PLAN: Since I cannot obviously image the same abnormality I recommend the patient be referred to breast imaging for ultrasound-guided biopsy or reevaluation of the images. The patient to follow-up my office after biopsy to discuss results Diagnoses: (R92.8) Abnormal finding on breast imaging (primary encounter diagnosis) My findings have been communicated to Kiara Pedraza via shared medical record. This note will be forwarded to Errol Luu MD. Return to Clinic: The patient is instructed to follow-up with me after the testing has been completed. Sylvain Mckeon MD documented in this encounter [facility] 06-12-2021 Nurse Note REVIEW OF SYSTEMS: General: The patient NOTES fatigue, denies weight loss, denies weight gain, denies feeling hot, and denies feelings of cold. Eyes: The patient denies glaucoma, denies eye injury/surgery, wears glasses or contacts. Ear/Nose/Throat: The patient NOTES allergies, denies hayfever, denies ear infections, and denies bloody noses. Cardiovascular: The patient denies chest pain, denies heart disease, denies high blood pressure,denies cardiac stent, denies prior heart attack, denies irregular heart beat, denies high cholesterol, denies poor circulation, denies heart failure, other cardiac issues, denies claudication, denies cold feet, denies peripheral arterial stent. Respiratory: The patient denies tuberculosis, denies pneumonia, denies frequent cough, denies pulmonary embolism, denies shortness of breath, and denies coughing up blood. Gastrointestinal: The patient denies difficulty swallowing, NOTES acid reflux, denies ulcers, NOTES vomiting, denies jaundice/hepatitis, denies gallbladder problems, denies black or tarry stools, denies hemorrhoids, denies bleeding from rectum, denies diverticulitis, denies constipation, denies diarrhea, denies loss of stool control, and NOTES hernias. Kidney/Bladder: The patient denies kidney stones, denies urine infections, and denies bloody urine. Skin: The patient denies a history of skin cancer, denies bleeding/changing moles, and denies a history of skin rash. Neurologic: The patient denies a history of epilepsy/convulsions, NOTES headaches, denies head/spinal injuries, and denies stroke/TIA. Psychiatric: The patient NOTES psychiatric medications, NOTES depression, and denies voices, denies substance abuse. Endocrine: The patient denies thyroid disorders, denies diabetes, and denies hormonal problems. Hematologic: The patient denies a history of bruising, denies bleeding, and NOTES anemia, denies blood clots. Infections: The patient denies a history of measles and mumps, denies rheumatic fever, and NOTES sexually transmitted diseases. Musculoskeletal: The patient denies back pain/injury, NOTES back problems, denies sciatica, NOTES knee/foot trouble, NOTES arthritis, or denies gout. When was patient's last Mammogram screening? 06/05/2021 Last Colonoscopy: None Eduarda Price RN documented in this encounter [facility] 06-05-2021 History of Present illness Narrative Radiology Service Progress Note PATIENT NAME: Lyndon Burroughs DATE OF SERVICE: June 05, 2021 TIME: 4:09 PM PATIENT IDENTITY VERIFICATION COMPLETED USING TWO (2) IDENTIFIERS: Name and Date of confirmed by patient verbally. FALL SCREENING: Has the patient had 2 falls in the last year or 1 fall with injury or currently using an Ambulatory Assistive Device (Walker, Cane, Wheelchair, Crutches, etc.)? No PATIENT GENDER DATA: Female. status: : No status: N/A PATIENT RELEVANT IMPLANT DATA REVIEWED: Not Applicable RADIOLOGY DEPARTMENT: Ultrasound PERIPHERAL IV DATA: Not applicable SIGNED BY: Rosie Jernigan RDMS T June 05, 2021 4:09 PM documented in this encounter [facility] 06-05-2021 History of Present illness Narrative Radiology Service Progress Note PATIENT NAME: Lyndon Burroughs DATE OF SERVICE: June 05, 2021 TIME: 2:25 PM PATIENT IDENTITY VERIFICATION COMPLETED USING TWO (2) IDENTIFIERS: Name and Date of confirmed by patient verbally. FALL SCREENING: Has the patient had 2 falls in the last year or 1 fall with injury or currently using an Ambulatory Assistive Device (Walker, Cane, Wheelchair, Crutches, etc.)? No PATIENT GENDER DATA: Female. status: : No status: NO. PATIENT RELEVANT IMPLANT DATA REVIEWED: Not Applicable RADIOLOGY DEPARTMENT: Mammography PERIPHERAL IV DATA: Not applicable SIGNED BY: Carlos Chavarria June 05, 2021 2:25 PM documented in this encounter [facility] 06-03-2021 History of Present illness Narrative Associated Order(s): Large Joint Arthro/Inj: bilateral knee joints Post-Procedure Diagnose(s): Chondromalacia of right patella; Chondromalacia of left patella Desirae Zamudio PA-C Department of Orthopaedics Orthopaedics [address] [facility] [address] Dept: [phone] Dept June 03, 2021 CHIEF COMPLAINT: Follow Up of the Right Knee, Follow Up of the Left Knee, and 1 week post visit with BP chondromalcia bilateral knees (Wants injections) Ms. Lyndon Burroughs is a 40 year old female who presents with continued anterior knee pain. Has tried oral and topical NSAIDs without relief. Is interested in trying a cortisone injection. Having some posterior knee and thigh pain and cramping on the right. Better if area is massaged. Denies injury. Trying to get back to her work out routine but is still feeling fatigued after having COVID. Continue to feel that right leg is larger than left, we have already obtained an US to rule out DVT. 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 Sounds like she may have a hamstring strain/cramping on the right, will check some basic electrolytes. Ms. Lyndon Burroughs was advised as to contrast therapies and/or to take analgesics/anti-inflammatories as needed and all contraindications were reviewed. OBJECTIVE: Ms. Lyndon Burroughs is a pleasant 40 year old in no apparent distress. Gen:LMP 04/09/2021 nl development, obese, no deformities ENT: Normocephalic, normal hearing, moist mucosa CV: Pulses:DP/PT= 2+ and symmetric, capillary refill < 2 secs, no peripheral edema/varicosities Skin: no rash, bruising or lesions. Good turgor. Psych: cooperative and appropriate, alert and oriented x 3, good mood and affect. Musculoskeletal: KNEE EXAM: Left: Alignment: Neutral Range of motion is lacking a few degrees secondary to tight hamstrings degrees in extension and 120 degrees of flexion. Extension La degrees Pain with ROM: No Effusion: None Tender to the palpation of Patellar tendon and Medial joint line Pain with patellar compression: Yes Stability: Anterior/Posterior stable and Varus/Valgus stable Hip Exam: flexion to 100+ degrees, full extension, internal/external rotation adequate and no pain with log roll Neurovascular Status: Sensation Intact, Moves foot and ankle up & down and 2+ dorsalis pedis Right: Alignment: Valgus deformity, Correctable Range of motion is lacking a few degrees secondary to tight hamstrings degrees in extension and 120 degrees of flexion. Extension La degrees Pain with ROM: Yes Effusion: Mild Tender to the palpation of Patellar tendon and Medial femoral condyle Pain with patellar compression: Yes Stability: Anterior/Posterior stable and Varus/Valgus stable Hip Exam: flexion to 100+ degrees, full extension, internal/external rotation adequate and no pain with log roll Neurovascular Status: Sensation Intact, Moves foot and ankle up & down and 2+ dorsalis pedis Large Joint Arthro/Inj: bilateral knee joints Informed Consent Consent Obtained: Verbal Waterfall Protocol A moment to CARE was completed. SIGN IN Sign in communication not applicable due to emergent procedure. Personnel directly involved with the procedure wore the appropriate PPE. Special Equipment: N/A Patient/Surrogate Stated/Verified: Patient name, Date of , Relevant allergies and Intended procedure TIME OUT Intended patient and procedure match the source document(s). Consent documented and matches the intended procedure. Relevant labs, photos, and/or imaging studies have been reviewed. Correct side/site marked and visible. Medications required for procedure verified. No fire risk assessment and interventions applicable. No implant(s) inserted. 06/03/2021 12:35 PM The procedure site was prepped in the usual sterile fashion. Site: bilateral knee joints Medications (Right): 6 mg betamethasone acetate-betamethasone sodium phosphate 6 mg/mL Medications (Left): 6 mg betamethasone acetate-betamethasone sodium phosphate 6 mg/mL Anesthetics (Right): 5 mL lidocaine (PF) 10 mg/mL (1 %) Anesthetics (Left): 5 mL lidocaine (PF) 10 mg/mL (1 %) Outcome: Tolerated well, no immediate complications Post-injection instructions were reviewed with the patient and the patient voiced understanding of these instructions. SIGN OUT Post-procedure follow-up management communicated and Plan of Care Visit completed when applicable Imaging: IMPRESSION: Tricompartmental degenerative changes of bilateral knees without acute osseous abnormality or joint effusion. 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: [email or web address] Transcribe Date/Time: Aug 06 2020 9:44A Dictated by : ROSARIO MATHUR MD This examination was interpreted and the report reviewed and electronically signed by: ROSARIO MATHUR MD on Aug 06 2020 9:47AM EST Results-Findings * * *Final Report* * * DATE OF EXAM: Aug 06 2020 9:42AM WOX [id number] - XR KNEE 4V AP/PA/LAT/MERCH JEANMARIE / PROCEDURE REASON: multiple diagnoses * * * * Physician Interpretation * * * * EXAMINATION: XR KNEE 4V AP/PA/LAT/MERCH JEANMARIE CLINICAL HISTORY: Pt. states bilateral knee pain. No known injury. Chronic pain of both knees Technique: XR KNEE 4V AP/PA/LAT/MERCH JEANMARIE -- BILATERAL knees with 5 views on 5 images Comparison: None RESULT: RIGHT knee: No acute fracture or dislocation. There is narrowing of the medial compartment of the RIGHT knee. Narrowing is noted at the lateral aspect of the patellofemoral joint. Tricompartmental degenerative spurring with a small enthesophyte at the quadriceps tendon insertion. No RIGHT knee joint effusion. LEFT knee: No acute fracture or dislocation. There is narrowing at the lateral aspect of the patellofemoral joint. Tricompartmental degenerative spurring. No LEFT knee joint effusion. Supporting Subjective Information Below: Past Surgical History: PAST SURGICAL HISTORY Procedure Laterality Date ENDOSCOPY PROC Medications: Current Outpatient Medications Medication Sig diclofenac, EC, (VOLTAREN) 75 mg EC tablet Take 1 tablet by mouth twice daily. FOR PAIN Norethindrone, Contraceptive, (ORTHO MICRONOR) 0.35 mg tablet Take 1 tablet by mouth once daily. LORazepam (ATIVAN) 0.5 mg Take 0.5 mg by mouth as needed. Amphetamine-Dextroamphetamine (ADDERALL) 30 mg tablet Take 1 tablet by mouth once daily. amphetamine-dextroamphetamine (ADDERALL) 15 mg tablet Take 1 tablet by mouth once daily. MEDICAL SUPPLY Cane- ketoconazole (NIZORAL) 2 % shampoo Apply 1 application to affected area two times a week. [id number]-OREG-CAPRYL ORAL Take by mouth. biotin/calcium carbonate (BIOTIN 100+10 ORAL) Take by mouth. gluc zimmerman/chondro zimmerman A/vit C/Mn (GLUCOSAMINE 1500 COMPLEX ORAL) Take by mouth. buPROPion XL (WELLBUTRIN XL) 150 mg 24 hr tablet Take 1 tablet by mouth once daily. magnesium oxide 400 mg magnesium tab Take 400 mg by mouth daily at bedtime. Cholecalciferol, Vitamin D3, 5,000 unit tab Take 1 tablet by mouth once daily. vitamin b complex (B COMPLETE) tab Take 1 tablet by mouth once daily. AMOXICILLIN ORAL Take by mouth. dental lisdexamfetamine (VYVANSE) 30 mg capsule Take 1 capsule by mouth once daily for 30 days. Do not start before November 02, 2020. hbfhgjtmdrv-ykffff-mpww-collag [id number] mg tab Take 1 tablet by mouth once daily. (Patient not taking: Reported on 05/27/2021 ) venlafaxine ER (EFFEXOR XR) 37.5 mg 24 hr capsule Take 1 capsule by mouth once daily. (Patient not taking: Reported on 11/12/2020 ) L-TYROSINE ORAL Take 1 capsule by mouth twice daily. (Patient not taking: Reported on 05/27/2021 ) No current facility-administered medications for this visit. Allergies: Latex and Tomatoes ROS: General (negative for fatigue, malaise, weight loss/gain) HEENT (negative for headache, earache, recent vision changes, sinus pain, sore throat) Respiratory (no recent shortness of breath, hemoptysis) CV (negative for chest tightness, palpitations) Musculoskeletal (see HPI) Psych (no depression, anxiety) This note was partially generated using my[employer] voice recognition system, and there may be some incorrect words, spellings, and punctuation that were not noted in checking the note before saving. Desirae Zamudio PA-C Patient presents with: Right Knee - Follow Up Left Knee - Follow Up 1 week post visit with BP chondromalcia bilateral knees: Wants injections Intake information documented in the prior visit with Dr. Flowers on 05/27/21. AMB ROOMING INTAKE FLOWSHEET DATA Pain Pain Level: 4 Pain Location: (Bilateral knees) Description: Dull, Sharp Duration Amount of Time: (Ongoing) Frequency: Continuous Intervention/Comfort measure: Medication Patient was unable to get injections last week. Would like injections today. Taking Tylenol for the pain when needed and helps. documented in this encounter [facility] 05-27-2021 History of Present illness Narrative Phil Flowers MD Department of Orthopaedics Orthopaedics [address] [place] [id number] Dept: [phone] Dept May 27, 2021 CHIEF COMPLAINT: Established Patient of the Right Knee, Established Patient of the Left Knee, and 8 1/2 months post visit OA bilateral knees with Desirae HPI Patient states during the daytime she is having a pain that feels like a knife stabbing her on the anterior aspect and at night it feels like something heavy is laying on the back of her knee. Her pain has gotten worse since December. The back of her knee feels like a bienvenido horse at night from her thigh to her calf. She is unable to bend her knee and straighten at night. Her left knee is worse than her right. Taking Voltaren for the pain and feels it is not helping. She has been also using Lidocaine spray with the Tylenol and does help her go back to sleep. Her PCP gave her an Rx for a cane but has not picked it up yet. 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 Possible schedule in a week or two with Desirae. Ms. Lyndon Burroughs was advised as to contrast therapies and/or to take analgesics/anti-inflammatories as needed and all contraindications were reviewed. OBJECTIVE: Ms. Lyndon Burroughs is a pleasant 40 year old in no apparent distress. Gen:LMP 04/09/2021 nl development, morbidly obese, no deformities ENT: Normocephalic, normal hearing, moist mucosa CV: Pulses:DP/PT= 2+ and symmetric, capillary refill < 2 secs, no peripheral edema/varicosities Skin: no rash, bruising or lesions. Good turgor. Psych: cooperative and appropriate, alert and oriented x 3, good mood and affect. Musculoskeletal: Mild antalgia with ambulation. Patella both track a little bit with lateral tilt. There is crepitance in both, left worse than right. She has some medial joint line tenderness on the right knee greater than the left. Range of motion is from 0-115 degrees. No obvious effusion. Imaging: IMPRESSION: Tricompartmental degenerative changes of bilateral knees without acute osseous abnormality or joint effusion. 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 states bilateral knee pain. No known injury. Chronic pain of both knees Technique: XR KNEE 4V AP/PA/LAT/MERCH JEANMARIE -- BILATERAL knees with 5 views on 5 images Comparison: None RESULT: RIGHT knee: No acute fracture or dislocation. There is narrowing of the medial compartment of the RIGHT knee. Narrowing is noted at the lateral aspect of the patellofemoral joint. Tricompartmental degenerative spurring with a small enthesophyte at the quadriceps tendon insertion. No RIGHT knee joint effusion. LEFT knee: No acute fracture or dislocation. There is narrowing at the lateral aspect of the patellofemoral joint. Tricompartmental degenerative spurring. No LEFT knee joint effusion. Supporting Subjective Information Below: Past Surgical History: PAST SURGICAL HISTORY Procedure Laterality Date ENDOSCOPY PROC Medications: Current Outpatient Medications Medication Sig diclofenac, EC, (VOLTAREN) 75 mg EC tablet Take 1 tablet by mouth twice daily. FOR PAIN Norethindrone, Contraceptive, (ORTHO MICRONOR) 0.35 mg tablet Take 1 tablet by mouth once daily. LORazepam (ATIVAN) 0.5 mg Take 0.5 mg by mouth as needed. Amphetamine-Dextroamphetamine (ADDERALL) 30 mg tablet Take 1 tablet by mouth once daily. amphetamine-dextroamphetamine (ADDERALL) 15 mg tablet Take 1 tablet by mouth once daily. ketoconazole (NIZORAL) 2 % shampoo Apply 1 application to affected area two times a week. [id number]-[id number]-OREG-CAPRYL ORAL Take by mouth. biotin/calcium carbonate (BIOTIN 100+10 ORAL) Take by mouth. gluc zimmerman/chondro zimmerman A/vit C/Mn (GLUCOSAMINE 1500 COMPLEX ORAL) Take by mouth. buPROPion XL (WELLBUTRIN XL) 150 mg 24 hr tablet Take 1 tablet by mouth once daily. Cholecalciferol, Vitamin D3, 5,000 unit tab Take 1 tablet by mouth once daily. vitamin b complex (B COMPLETE) tab Take 1 tablet by mouth once daily. AMOXICILLIN ORAL Take by mouth. dental MEDICAL SUPPLY Cane- lisdexamfetamine (VYVANSE) 30 mg capsule Take 1 capsule by mouth once daily for 30 days. Do not start before November 02, 2020. paqmihkpgix-wdxiwz-svha-collag [id number] mg tab Take 1 tablet by mouth once daily. (Patient not taking: Reported on 05/27/2021 ) venlafaxine ER (EFFEXOR XR) 37.5 mg 24 hr capsule Take 1 capsule by mouth once daily. (Patient not taking: Reported on 11/12/2020 ) magnesium oxide 400 mg magnesium tab Take 400 mg by mouth daily at bedtime. L-TYROSINE ORAL Take 1 capsule by mouth twice daily. (Patient not taking: Reported on 05/27/2021 ) No current facility-administered medications for this visit. Allergies: Latex and Tomatoes ROS: General (negative for fatigue, malaise, weight loss/gain) HEENT (negative for headache, earache, recent vision changes, sinus pain, sore throat) Respiratory (no recent shortness of breath, hemoptysis) CV (negative for chest tightness, palpitations) Musculoskeletal (see HPI) Psych (no depression, anxiety) Phil Flowers MD documented in this encounter [facility] 05-14-2021 Miscellaneous Notes According to [employer] message on 02/04/2021 lab results good. Ok to continue diclofenac. The following approved medication requests have been transmitted electronically. Signed Prescriptions Disp Refills diclofenac, EC, (VOLTAREN) 75 mg EC tablet 60 tablet 0 Sig: Take 1 tablet by mouth twice daily. FOR PAIN OMAR: No Authorizing Provider: ISELA OCHOA PA-C Last OV 08/2020 Last creatinine 01/25/21 0.59 documented in this encounter [facility] 05-06-2021 Miscellaneous Notes Pt called and is notified of providers results and instructions. Pt voices understanding. She will get US and mammogram set up. Lakia Gregorio RN Please let patient know her follow up US and mammogram are ordered. Also, Cholesterol levels are slightly elevated. Diet should be rich in fruits, vegetables, lean meats and healthy fats/oils. Avoid processed foods, trans fats, vegetable oils and simple sugars. Watch portion sizes. Aerobic exercise for at least 20 minutes, 3-5 days a week. Thank you Kiara Pedraza APRN.SANDRA See message below, pt needs orders placed. Pt asking for pcp to also look at her labs from 04/17/21. 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 Alice Ramírez LPN Pt is a call back, please enter orders for Diagnostic Breast Juve of Right and Right Breast US, Left Breast US, thank you. [place] documented in this encounter [facility] 08-20-2020 History of Past i llness Narrative Problem Noted Date Resolved Date Chronic pain of both knees 08/20/202012/18 Supervision of normal first 10/17/2005 2009 documented as of this encounter (statuses as of 05/06/2021) [facility] History of Past illness Narrative* Problem Noted Date Resolved Date Chronic pain of both knees 08/20/202012/18 Supervision of normal first 10/17/2005 2009 documented as of this encounter (statuses as of 05/14/2021) [facility] History of Past illness Narrative* Problem Noted Date Resolved Date Chronic pain of both knees 08/20/202012/18 Supervision of normal first 10/17/2005 2009 documented as of this encounter (statuses as of 05/27/2021) [facility] History of Past illness Narrative* Problem Noted Date Resolved Date Chronic pain of both knees 08/20/202012/18 Supervision of normal first 10/17/2005 2009 documented as of this encounter (statuses as of 06/03/2021) [facility] History of Past illness Narrative* Problem Noted Date Resolved Date Chronic pain of both knees 08/20/202012/18 Supervision of normal first 10/17/2005 2009 documented as of this encounter (statuses as of 06/06/2021) [address]-2021 History of Past illness Narrative* Problem Noted Date Resolved Date Chronic pain of both knees 08/20/202012/18 Supervision of normal first 10/17/2005 2009 documented as of this encounter (statuses as of 06/06/2021) [address]-2021 History of Past illness Narrative* Problem Noted Date Resolved Date Chronic pain of both knees 08/20/202012/18 Supervision of normal first 10/17/2005 2009 documented as of this encounter (statuses as of 06/12/2021) [address]-2021 History of Past illness Narrative* Problem Noted Date Resolved Date Chronic pain of both knees 08/20/202012/18 Supervision of normal first 10/17/2005 2009 documented as of this encounter (statuses as of 07/01/2021) [address]-2021 History of Past illness Narrative* Problem Noted Date Resolved Date Chronic pain of both knees 08/20/202012/18 Supervision of normal first 10/17/2005 2009 documented as of this encounter (statuses as of 07/03/2021) [address]-2021 History of Past illness Narrative* Problem Noted Date Resolved Date Chronic pain of both knees 08/20/202012/18 Supervision of normal first 10/17/2005 2009 documented as of this encounter (statuses as of 07/04/2021) [address]-2021 History of Past illness Narrative* Problem Noted Date Resolved Date Chronic pain of both knees 08/20/202012/18 Supervision of normal first 10/17/2005 2009 documented as of this encounter (statuses as of 07/04/2021) [address]-2021 History of Past illness Narrative* Problem Noted Date Resolved Date Chronic pain of both knees 08/20/202012/18 Supervision of normal first 10/17/2005 2009 documented as of this encounter (statuses as of 08/01/2021) [address]21 History of Past illness Narrative* Problem Noted Date Resolved Date Chronic pain of both knees 08/20/202012/18 Supervision of normal first 10/17/2005 2009 documented as of this encounter (statuses as of 08/01/2021) [address]-2021 History of Past illness Narrative* Problem Noted Date Resolved Date Chronic pain of both knees 08/20/202012/18 Supervision of normal first 10/17/2005 2009 documented as of this encounter (statuses as of 09/02/2021) [address] History of Past illness Narrative* Problem Noted Date Resolved Date Chronic pain of both knees 08/20/202012/18 Supervision of normal first 10/17/2005 2009 documented as of this encounter (statuses as of 10/07/2021) [address] History of Past illness Narrative* Problem Noted Date Resolved Date Chronic pain of both knees 08/20/202012/18 Supervision of normal first 10/17/2005 2009 documented as of this encounter (statuses as of 11/29/2021) [address]-2021 History of Past illness Narrative* Problem Noted Date Resolved Date Chronic pain of both knees 08/20/202012/18 Supervision of normal first 10/17/2005 2009 documented as of this encounter (statuses as of 12/02/2021) [address] History of Past illness Narrative* Problem Noted Date Resolved Date Chronic pain of both knees 08/20/202012/18 Supervision of normal first 10/17/2005 2009 documented as of this encounter (statuses as of 01/06/2022) [address]-2021 History of Past illness Narrative* Problem Noted Date Resolved Date Chronic pain of both knees 08/20/202012/18 Supervision of normal first 10/17/2005 2009 documented as of this encounter (statuses as of 01/06/2022) [address]-2021 History of Past illness Narrative* Problem Noted Date Resolved Date Chronic pain of both knees 08/20/202012/18 Supervision of normal first 10/17/2005 2009 documented as of this encounter (statuses as of 02/15/2022) [address]-2021 History of Past illness Narrative* Problem Noted Date Resolved Date Chronic pain of both knees 08/20/202012/18 Supervision of normal first 10/17/2005 2009 documented as of this encounter (statuses as of 02/21/2022) [address]-2021 History of Past illness Narrative* Problem Noted Date Resolved Date Chronic pain of both knees 08/20/202012/18 Supervision of normal first 10/17/2005 2009 documented as of this encounter (statuses as of 02/21/2022) [address]2021 History of Past illness Narrative* Problem Noted Date Resolved Date Chronic pain of both knees 08/20/202012/18 Supervision of normal first 10/17/2005 2009 documented as of this encounter (statuses as of 05/26/2022) [address]-2021 History of Past illness Narrative* Problem Noted Date Resolved Date Chronic pain of both knees 08/20/202012/18 Supervision of normal first 10/17/2005 2009 documented as of this encounter (statuses as of 07/11/2022) [address]-2021 History of Past illness Narrative* Problem Noted Date Resolved Date Chronic pain of both knees 08/20/202012/18 Supervision of normal first 10/17/2005 2009 documented as of this encounter (statuses as of 08/11/2022) [address]-2021 History of Past illness Narrative* Problem Noted Date Diagnosed Date Resolved Date Chronic pain of both knees 08/20/2020 1 02/18/2020 Supervision of normal first 10/17/2005 2009 documented as of this encounter (statuses as of 10/03/2022) [address]-2021 History of Past illness Narrative* Problem Noted Date Diagnosed Date Resolved Date Chronic pain of both knees 08/20/2020 1 02/18/2020 Supervision of normal first 10/17/2005 2009 documented as of this encounter (statuses as of 10/27/2022) [address]2021 History of Past illness Narrative* Problem Noted Date Diagnosed Date Resolved Date Chronic pain of both knees 08/20/2020 1 02/18/2020 Supervision of normal first 10/17/2005 2009 documented as of this encounter (statuses as of 11/01/2022) [address]-2021 History of Past illness Narrative* Problem Noted Date Diagnosed Date Resolved Date Chronic pain of both knees 08/20/2020 1 02/18/2020 Supervision of normal first 10/17/2005 2009 documented as of this encounter (statuses as of 11/25/2022) [address]-2021 History of Past illness Narrative* Problem Noted Date Diagnosed Date Resolved Date Chronic pain of both knees 08/20/2020 1 02/18/2020 Supervision of normal first 10/17/2005 2009 documented as of this encounter (statuses as of 03/17/2023) [address]2021 History of Past illness Narrative* Problem Noted Date Diagnosed Date Resolved Date Chronic pain of both knees 08/20/2020 1 02/18/2020 Supervision of normal first 10/17/2005 2009 documented as of this encounter (statuses as of 03/26/2023) [address]-2021 History of Past illness Narrative* Problem Noted Date Diagnosed Date Resolved Date Chronic pain of both knees 08/20/2020 1 02/18/2020 Supervision of normal first 10/17/2005 2009 documented as of this encounter (statuses as of 04/03/2023) [address]2021 History of Past illness Narrative* Problem Noted Date Diagnosed Date Resolved Date Chronic pain of both knees 08/20/2020 1 02/18/2020 Supervision of normal first 10/17/2005 2009 documented as of this encounter (statuses as of 05/12/2023) [facility] History of Past illness Narrative* Problem Noted Date Diagnosed Date Resolved Date Chronic pain of both knees 08/20/2020 1 02/18/2020 Supervision of normal first 10/17/2005 2009 documented as of this encounter (statuses as of 05/13/2023) [facility] History of Past illness Narrative* Problem Noted Date Diagnosed Date Resolved Date Chronic pain of both knees 08/20/2020 1 02/18/2020 Supervision of normal first 10/17/2005 2009 documented as of this encounter (statuses as of 05/13/2023) [facility] History of Past illness Narrative* Problem Noted Date Diagnosed Date Resolved Date Chronic pain of both knees 08/20/2020 1 02/18/2020 Supervision of normal first 10/17/2005 2009 documented as of this encounter (statuses as of 05/13/2023) [facility] History of Past illness Narrative* Problem Noted Date Diagnosed Date Resolved Date Chronic pain of both knees 08/20/2020 1 02/18/2020 Supervision of normal first 10/17/2005 2009 documented as of this encounter (statuses as of 05/14/2023) [facility] History of Present illness Narrative* Timothy Mann RT(R) - 08/06/2020 8:50 AM EDT Radiology Service Progress Note PATIENT NAME: Lyndon Burroughs DATE OF SERVICE: August 06, 2020 TIME: 9:26 AM PATIENT IDENTITY VERIFICATION COMPLETED USING TWO (2) IDENTIFIERS: Name and Date of confirmedby patient verbally. FALL SCREENING: Has the patient had 2 falls in the last year or 1 fall with injury or currently using an Ambulatory Assistive Device (Walker, Cane, Wheelchair, Crutches, etc.)? No PATIENT GENDER DATA: Female. status: : No status: NO. PATIENT RELEVANT IMPLANT DATA REVIEWED: Not Applicable RADIOLOGY DEPARTMENT: General X-ray: Exam(s) Completed: Lower Extremity X- Ray(s): Knee, AP / Lat / Tunne / Merchant Bilateral and Wt. Bearing PERIPHERAL IV DATA: Not applicable SIGNED BY: RT Bora(R) August 06, 2020 9:26 AM [facility] noteNo assessment information availableWMercy Health [facility] Work Phone: Evaluation note* Diagnosis Abnormal mammogram- Primary Abnormal mammogram, unspecified [facility]* Diagnosis Primary osteoarthritis of both knees Primary localized osteoarthrosis, lower leg [facility]* Diagnosis Chondromalacia of right patella- Primary Chondromalacia of patella Chondromalacia of left patella Chondromalacia of patella Chronic pain of both knees Primary osteoarthritis of both knees Primary localized osteoarthrosis, lower leg [facility]* Diagnosis Chondromalacia of left patella- Primary Chondromalacia of patella Leg swelling Swelling of limb Chondromalacia of right patella Chondromalacia of patella [facility]* Diagnosis Abnormal mammogram Abnormal mammogram, unspecified [facility]* Diagnosis Abnormal mammogram Abnormal mammogram, unspecified [facility]* Diagnosis Abnormal finding on breast imaging- Primary Other (abnormal) findings on radiological examination of breast [facility]* Diagnosis Primary osteoarthritis of both knees Primary localized osteoarthrosis, lower leg [facility]* Diagnosis Abnormal finding on breast imaging Other (abnormal) findings on radiological examination of breast [facility]* Diagnosis Abnormal mammogram Abnormal mammogram, unspecified [facility]* Diagnosis Primary osteoarthritis of both knees Primary localized osteoarthrosis, lower leg [facility]* Diagnosis Primary osteoarthritis of both knees- Primary Primary localized osteoarthrosis, lower leg [facility]* Diagnosis Primary osteoarthritis of both knees Primary localized osteoarthrosis, lower leg [facility]* Diagnosis Seborrheic dermatitis of scalp Other seborrheic dermatitis documented in this encounter [facility] note* Diagnosis Pseudoangiomatous stromal hyperplasia of breast- Primary Hypertrophy of breast [facility]* Diagnosis Encounter for screening mammogram for breast cancer documented in this encounter [facility] note* Diagnosis Primary osteoarthritis of both knees Primary localized osteoarthrosis, lower leg [facility]* Diagnosis Primary osteoarthritis of both knees Primary localized osteoarthrosis, lower leg [facility] emergency department note* Diagnosis Primary osteoarthritis of both knees Primary localized osteoarthrosis, lower leg [facility] Diagnosis Morbid obesity with BMI of 40.0-44.9, adult (HCC)- Primary Morbid obesity Encounter for immunization Need for other specified prophylactic vaccination against single bacterial disease Weight gain Abnormal weight gain Morbid obesity due to excess calories (HCC) Chronic insomnia Insomnia, unspecified Diffuse pain Generalized pain ADHD (attention deficit hyperactivity disorder), combined type Attention deficit disorder with hyperactivity Social anxiety disorder Social phobia Dysthymia Dysthymic disorder Chronic bilateral low back pain without sciatica documented in this encounter [facility] note* Diagnosis Morbid obesity with BMI of 40.0-44.9, adult ([facility]) Morbid obesity documented in this encounter [facility] note* Diagnosis Depression, unspecified depression type [facility]* Diagnosis Morbid obesity with BMI of 40.0-44.9, adult (HCC) Morbid obesity [facility]* Diagnosis Encounter for screening mammogram for breast cancer documented in this encounter [facility] note* Diagnosis Fibromyalgia- Primary Mylagia and myositis, unspecified Diffuse pain Generalized pain Chronic bilateral low back pain without sciatica Class 3 severe obesity due to excess calories without serious comorbidity with body mass index (BMI) of 40.0 to 44.9 in adult ([facility]) Rosacea [facility]* Diagnosis Screen for STD (sexually transmitted disease)- Primary Screening examination for venereal disease documented in this encounter [facility] note* Diagnosis Acute pain of left shoulder- Primary Acute pain of left shoulder documented in this encounter [facility] note* Diagnosis Rosacea documented in this encounter [facility] note* Diagnosis Impingement of left shoulder- Primary [facility]* Diagnosis Routine health maintenance- Primary Routine general medical examination at a health care facility Anxiety Anxiety state, unspecified Recurrent major depressive disorder, in partial remission (HCC) Morbid obesity due to excess calories (HCC) Hordeolum externum of right upper eyelid- Primary Hordeolum externum [facility] Diagnosis Routine health maintenance- Primary Routine general medical examination at a health care facility Anxiety Anxiety state, unspecified Recurrent major depressive disorder, in partial remission (HCC) Morbid obesity due to excess calories (HCC) Acute pain of left shoulder [facility] Diagnosis Routine health maintenance- Primary Routine general medical examination at a health care facility Anxiety Anxiety state, unspecified Recurrent major depressive disorder, in partial remission (HCC) Morbid obesity due to excess calories (HCC) POTS (postural orthostatic tachycardia syndrome)- Primary Tachycardia, unspecified Diffuse pain Generalized pain Fibromyalgia Mylagia and myositis, unspecified Hypermobility syndrome [facility]* Diagnosis Routine health maintenance- Primary Routine general medical examination at a health care facility Anxiety Anxiety state, unspecified Recurrent major depressive disorder, in partial remission (HCC) Morbid obesity due to excess calories (HCC) Chronic bilateral low back pain without sciatica Diffuse pain Generalized pain [facility] Diagnosis Routine health maintenance- Primary Routine general medical examination at a health care facility Anxiety Anxiety state, unspecified Recurrent major depressive disorder, in partial remission (HCC) Morbid obesity due to excess calories (HCC) Pain- Primary Generalized pain [facility]* Diagnosis Routine health maintenance- Primary Routine general medical examination at a health care facility Anxiety Anxiety state, unspecified Recurrent major depressive disorder, in partial remission (HCC) Morbid obesity due to excess calories (HCC) Pain Generalized pain [facility]* Diagnosis Routine health maintenance- Primary Routine general medical examination at a health care facility Anxiety Anxiety state, unspecified Recurrent major depressive disorder, in partial remission (HCC) Morbid obesity due to excess calories (HCC) Impingement of left shoulder- Primary Impingement of right shoulder [facility] Diagnosis Routine health maintenance- Primary Routine general medical examination at a health care facility Anxiety Anxiety state, unspecified Recurrent major depressive disorder, in partial remission (HCC) Morbid obesity due to excess calories (HCC) Chronic pain of both knees [facility] Diagnosis Routine health maintenance- Primary Routine general medical examination at a health care facility Anxiety Anxiety state, unspecified Recurrent major depressive disorder, in partial remission (HCC) Morbid obesity due to excess calories (HCC) Encounter for other screening for malignant neoplasm of breast- Primary [facility]* Diagnosis Routine health maintenance- Primary Routine general medical examination at a health care facility Anxiety Anxiety state, unspecified Recurrent major depressive disorder, in partial remission (HCC) Morbid obesity due to excess calories (HCC) Tinnitus, bilateral- Primary Unspecified tinnitus POTS (postural orthostatic tachycardia syndrome) Tachycardia, unspecified Dizziness Dizziness and giddiness Sensation of fullness in both ears Pre-syncope Syncope and collapse Orthostatic lightheadedness Dizziness and giddiness Tachycardia Tachycardia, unspecified Palpitations Temperature intolerance Other general symptoms Imbalance Abnormality of gait [facility] Diagnosis Routine health maintenance- Primary Routine general medical examination at a health care facility Anxiety Anxiety state, unspecified Recurrent major depressive disorder, in partial remission (HCC) Morbid obesity due to excess calories (HCC) Routine medical exam- Primary Routine general medical examination at a health care facility Encounter for immunization Need for other specified prophylactic vaccination against single bacterial disease Screening for colon cancer Special screening for malignant neoplasms, colon Special screening for malignant neoplasms, colon Left lower quadrant abdominal pain Periumbilical pain Abdominal pain, periumbilic Periumbilical hernia Umbilical hernia without mention of obstruction or gangrene Inadequate community resources Inadequate material resources Shortness of breath on exertion Shortness of breath Family history of colon cancer Family history of malignant neoplasm of gastrointestinal tract Family history of thyroid disease Family history of other endocrine and metabolic diseases Family history of diabetes mellitus [facility] Diagnosis Routine health maintenance- Primary Routine general medical examination at a health care facility Anxiety Anxiety state, unspecified Recurrent major depressive disorder, in partial remission (HCC) Morbid obesity due to excess calories (HCC) Hyperlipidemia, mixed- Primary Mixed hyperlipidemia [facility] Diagnosis Routine health maintenance- Primary Routine general medical examination at a health care facility Anxiety Anxiety state, unspecified Recurrent major depressive disorder, in partial remission (HCC) Morbid obesity due to excess calories (HCC) Special screening for malignant neoplasms, colon [facility] Diagnosis Routine health maintenance- Primary Routine general medical examination at a health care facility Anxiety Anxiety state, unspecified Recurrent major depressive disorder, in partial remission (HCC) Morbid obesity due to excess calories (HCC) Left lower quadrant abdominal pain Periumbilical pain Abdominal pain, periumbilic Periumbilical hernia Umbilical hernia without mention of obstruction or gangrene [facility]* Diagnosis Routine health maintenance- Primary Routine general medical examination at a [facility] care facility Anxiety Anxiety state, unspecified Recurrent major depressive disorder, in partial remission (HCC) Morbid obesity due to excess calories (HCC) Orthostatic lightheadedness- Primary Dizziness and giddiness [facility]* Diagnosis Routine health maintenance- Primary Routine general medical examination at a [facility] Anxiety Anxiety state, unspecified Recurrent major depressive disorder, in partial remission (HCC) Morbid obesity due to excess calories (HCC) Orthostatic lightheadedness- Primary Dizziness and giddiness [facility]* Diagnosis Routine health maintenance- Primary Routine general medical examination at a [facility] Anxiety Anxiety state, unspecified Recurrent major depressive disorder, in partial remission (HCC) Morbid obesity due to excess calories (HCC) Pharyngitis, unspecified etiology- Primary [facility]* Diagnosis Routine health maintenance- Primary Routine general medical examination at a [facility] care facility Anxiety Anxiety state, unspecified Recurrent major depressive disorder, in partial remission (HCC) Morbid obesity due to excess calories (HCC) Dizziness- Primary Dizziness and giddiness Other specified hearing loss, unspecified ear Tinnitus, bilateral Unspecified tinnitus [facility]* Diagnosis Routine health maintenance- Primary Routine general medical examination at a health care facility Anxiety Anxiety state, unspecified Recurrent major depressive disorder, in partial remission (HCC) Morbid obesity due to excess calories (HCC) Class 3 severe obesity due to excess calories without serious comorbidity with body mass index (BMI) of 40.0 to 44.9 in adult (HCC)- Primary [facility]* Diagnosis Routine health maintenance- Primary Routine general medical examination at a health care facility Anxiety Anxiety state, unspecified Recurrent major depressive disorder, in partial remission (HCC) Morbid obesity due to excess calories (HCC) Vertigo- Primary Dizziness and giddiness Tinnitus, bilateral Unspecified tinnitus Dizziness Dizziness and giddiness Sensation of fullness in both ears [facility]* Diagnosis Routine health maintenance- Primary Routine general medical examination at a health care facility Anxiety Anxiety state, unspecified Recurrent major depressive disorder, in partial remission (HCC) Morbid obesity due to excess calories (HCC) Adjustment disorder with depressed mood- Primary Fibromyalgia Mylagia and myositis, unspecified Diffuse pain Generalized pain Hypermobility syndrome [facility]* Diagnosis Routine health maintenance- Primary Routine general medical examination at a health care facility Anxiety Anxiety state, unspecified Recurrent major depressive disorder, in partial remission (HCC) Morbid obesity due to excess calories (HCC) Pain in both knees, unspecified chronicity- Primary [facility]* Diagnosis Routine health maintenance- Primary Routine general medical examination at a health care facility Anxiety Anxiety state, unspecified Recurrent major depressive disorder, in partial remission (HCC) Morbid obesity due to excess calories (HCC) Impingement of right shoulder- Primary documented in this encounter [facility] note* Diagnosis Routine health maintenance- Primary Routine general medical examination at a health care facility Anxiety Anxiety state, unspecified Recurrent major depressive disorder, in partial remission (HCC) Morbid obesity due to excess calories (HCC) Morbid obesity due to excess calories (HCC)- Primary Autism spectrum disorder Autistic disorder, current or active state Schizoaffective disorder, unspecified type (HCC) Obsessive-compulsive disorder, unspecified type Chronic fatigue syndrome with fibromyalgia Chronic bilateral low back pain without sciatica Vertigo Dizziness and giddiness * Assessment & Plan Note - Dolly Haskins, CERAMIC ENGINEER.[facility] - 03/15/2024 3:18 PM EST Associated Problem(s): Vertigo Assessment: recently evaluated by ENT and neurology 01/06/2024 Merlene Mchugh PA-C Assessment and Plan: (R42) Vertigo (primary encounter diagnosis) (H93.13) Tinnitus, bilateral (R42) Dizziness (H93.8X3) Sensation of fullness in both ears ~audiogram demonstrates normal hearing and normal middle ear function ~discussed masking and distraction for tinnitus. Does not qualify for [facility] due to medicaid. Referral submitted for [facility] for tinnitus ~referral to [facility] and Vestibular Test Battery - I will MyChart with results ~follow up with me as needed HPI: Lyndon is a 43 year old who reports vertigo and tinnitus. Tinnitus started 10-15 years ago. Hears it primarily when it's quiet in both ears. Bothers her quite a bit and struggles despite use of background noises. Denies hearing loss, otalgia, otorrhea, h/o ear surgeries, or tubes. Known cervicalgia. Known bruxism, unable to tolerate bite guard. Vertigo started about 3 years ago. Occurs for a few seconds after turning her head to the left or right or rolling over in bed. She tried [employer] Maneuvers at home which helped with her symptoms partially, but she did not try again due to intense symptoms while performing. Recalls 2 particularly bad episodes that lasted 30-40 minutes after waking. No associated hearing changes. Dizziness also started 3 years ago described as unsteadiness, lightheadedness, or feeling like she could pass out. This occurs when she stands and usually lasts for a brief period. * Assessment & Plan Note - Dolly Haskins APRN.CNP - 03/15/2024 3:16 PM EST Associated Problem(s): Chronic bilateral low back pain without sciatica Assessment: controlled on rx and as needed * Assessment & Plan Note - Dolly Haskins APRN.CNP - 03/15/2024 3:16 PM EST Associated Problem(s): Chronic fatigue syndrome with fibromyalgia Assessment: controlled on rx and as needed * Assessment & Plan Note - Dolly Haskins APRN.CNP - 03/15/2024 3:15 PM EST Associated Problem(s): Obsessive compulsive disorder Assessment: stable on rx per pt * Assessment & Plan Note - Dolly Haskins APRN.CNP - 03/15/2024 3:15 PM EST Associated Problem(s): Schizo-affective psychosis (HCC) Assessment: following psych, stable on rx per pt * Assessment & Plan Note - Dolly Haskins APRN.CNP - 03/15/2024 3:15 PM EST Associated Problem(s): Autism spectrum disorder Assessment: high functioning * Assessment & Plan Note - Dolly Haskins APRN.CNP - 03/15/2024 3:15 PM EST Associated Problem(s): Morbid obesity due to excess calories (HCC) Assessment: Body mass index is 45.52 kg/m . documented in this encounter [facility] note* Diagnosis Routine health maintenance- Primary Routine general medical examination at a health care facility Anxiety Anxiety state, unspecified Recurrent major depressive disorder, in partial remission (HCC) Morbid obesity due to excess calories (HCC) Morbid obesity due to excess calories (HCC)- Primary Autism spectrum disorder Autistic disorder, current or active state Schizoaffective disorder, unspecified type (HCC) Obsessive-compulsive disorder, unspecified type Chronic fatigue syndrome with fibromyalgia Chronic bilateral low back pain without sciatica Vertigo Dizziness and giddiness Screening for colon cancer- Primary Special screening for malignant neoplasms, colon Special screening for malignant neoplasms, colon documented in this encounter [facility] note* Diagnosis Routine health maintenance- Primary Routine general medical examination at a health care facility Anxiety Anxiety state, unspecified Recurrent major depressive disorder, in partial remission (HCC) Morbid obesity due to excess calories (HCC) Morbid obesity due to excess calories (HCC)- Primary Autism spectrum disorder Autistic disorder, current or active state Schizoaffective disorder, unspecified type (HCC) Obsessive-compulsive disorder, unspecified type Chronic fatigue syndrome with fibromyalgia Chronic bilateral low back pain without sciatica Vertigo Dizziness and giddiness Class 3 severe obesity due to excess calories without serious comorbidity with body mass index (BMI) of 40.0 to 44.9 in adult (HCC) [facility]* Diagnosis Routine health maintenance- Primary Routine general medical examination at a health care facility Anxiety Anxiety state, unspecified Recurrent major depressive disorder, in partial remission (HCC) Morbid obesity due to excess calories (HCC) Morbid obesity due to excess calories (HCC)- Primary Autism spectrum disorder Autistic disorder, current or active state Schizoaffective disorder, unspecified type (HCC) Obsessive-compulsive disorder, unspecified type Chronic fatigue syndrome with fibromyalgia Chronic bilateral low back pain without sciatica Vertigo Dizziness and giddiness Pain in both knees, unspecified chronicity [facility]* Diagnosis Routine health maintenance- Primary Routine general medical examination at a health care facility Anxiety Anxiety state, unspecified Recurrent major depressive disorder, in partial remission Morbid obesity due to excess calories (HCC) Morbid obesity due to excess calories (HCC)- Primary Autism spectrum disorder (HCC) Autistic disorder, current or active state Schizoaffective disorder, unspecified type (HCC) Obsessive-compulsive disorder, unspecified type Chronic fatigue syndrome with fibromyalgia Chronic bilateral low back pain without sciatica Vertigo Dizziness and giddiness Primary osteoarthritis of both knees- Primary Primary localized osteoarthrosis, lower leg Degeneration of intervertebral disc of lumbar region with lower extremity pain [facility]* Diagnosis Routine health maintenance- Primary Routine general medical examination at a health care facility Anxiety Anxiety state, unspecified Recurrent major depressive disorder, in partial remission Morbid obesity due to excess calories (HCC) Morbid obesity due to excess calories (HCC)- Primary Autism spectrum disorder (HCC) Autistic disorder, current or active state Schizoaffective disorder, unspecified type (HCC) Obsessive-compulsive disorder, unspecified type Chronic fatigue syndrome with fibromyalgia Chronic bilateral low back pain without sciatica Vertigo Dizziness and giddiness Primary osteoarthritis of both knees- Primary Primary localized osteoarthrosis, lower leg [facility]* Diagnosis Routine health maintenance- Primary Routine general medical examination at a health care facility Anxiety Anxiety state, unspecified Recurrent major depressive disorder, in partial remission Morbid obesity due to excess calories (HCC) Morbid obesity due to excess calories (HCC)- Primary Autism spectrum disorder (HCC) Autistic disorder, current or active state Schizoaffective disorder, unspecified type (HCC) Obsessive-compulsive disorder, unspecified type Chronic fatigue syndrome with fibromyalgia Chronic bilateral low back pain without sciatica Vertigo Dizziness and giddiness Encounter for other screening for malignant neoplasm of breast [facility]* Diagnosis Routine health maintenance- Primary Routine general medical examination at a health care facility Anxiety Anxiety state, unspecified Recurrent major depressive disorder, in partial remission Morbid obesity due to excess calories (HCC) Morbid obesity due to excess calories (HCC)- Primary Autism spectrum disorder (HCC) Autistic disorder, current or active state Schizoaffective disorder, unspecified type (HCC) Obsessive-compulsive disorder, unspecified type Chronic fatigue syndrome with fibromyalgia Chronic bilateral low back pain without sciatica Vertigo Dizziness and giddiness Degeneration of intervertebral disc of lumbar region with lower extremity pain- Primary Impingement of right shoulder [facility] Diagnosis Routine health maintenance- Primary Routine general medical examination at a [facility] care facility Anxiety Anxiety state, unspecified Recurrent major depressive disorder, in partial remission Morbid obesity due to excess calories (HCC) Morbid obesity due to excess calories (HCC)- Primary Autism spectrum disorder (HCC) Autistic disorder, current or active state Schizoaffective disorder, unspecified type (HCC) Obsessive-compulsive disorder, unspecified type Chronic fatigue syndrome with fibromyalgia Chronic bilateral low back pain without sciatica Vertigo Dizziness and giddiness Impingement of right shoulder- Primary [facility] Diagnosis Routine health maintenance- Primary Routine general medical examination at a health care facility Anxiety Anxiety state, unspecified Recurrent major depressive disorder, in partial remission Morbid obesity due to excess calories (HCC) Morbid obesity due to excess calories (HCC)- Primary Autism spectrum disorder (HCC) Autistic disorder, current or active state Schizoaffective disorder, unspecified type (HCC) Obsessive-compulsive disorder, unspecified type Chronic fatigue syndrome with fibromyalgia Chronic bilateral low back pain without sciatica Vertigo Dizziness and giddiness Abnormal screening mammogram- Primary Abnormal mammogram, unspecified [facility]* Diagnosis Routine health maintenance- Primary Routine general medical examination at a health care facility Anxiety Anxiety state, unspecified Recurrent major depressive disorder, in partial remission Morbid obesity due to excess calories (HCC) Morbid obesity due to excess calories (HCC)- Primary Autism spectrum disorder (HCC) Autistic disorder, current or active state Schizoaffective disorder, unspecified type (HCC) Obsessive-compulsive disorder, unspecified type Chronic fatigue syndrome with fibromyalgia Chronic bilateral low back pain without sciatica Vertigo Dizziness and giddiness Abnormal screening mammogram Abnormal mammogram, unspecified [facility] Diagnosis Routine health maintenance- Primary Routine general medical examination at a health care facility Anxiety Anxiety state, unspecified Recurrent major depressive disorder, in partial remission Morbid obesity due to excess calories (HCC) Morbid obesity due to excess calories (HCC)- Primary Autism spectrum disorder (HCC) Autistic disorder, current or active state Schizoaffective disorder, unspecified type (HCC) Obsessive-compulsive disorder, unspecified type Chronic fatigue syndrome with fibromyalgia Chronic bilateral low back pain without sciatica Vertigo Dizziness and giddiness Impingement of right shoulder- Primary [facility] Diagnosis Routine health maintenance- Primary Routine general medical examination at a [facility] Anxiety Anxiety state, unspecified Recurrent major depressive disorder, in partial remission Morbid obesity due to excess calories (HCC) Morbid obesity due to excess calories (HCC)- Primary Autism spectrum disorder (HCC) Autistic disorder, current or active state Schizoaffective disorder, unspecified type (HCC) Obsessive-compulsive disorder, unspecified type Chronic fatigue syndrome with fibromyalgia Chronic bilateral low back pain without sciatica Vertigo Dizziness and giddiness Primary osteoarthritis of both knees- Primary Primary localized osteoarthrosis, lower leg Lumbosacral spondylosis without myelopathy Hyperlordosis deformity of lumbar spine Morbid obesity due to excess calories (HCC) [facility] Diagnosis Routine health maintenance- Primary Routine general medical examination at a health care facility Anxiety Anxiety state, unspecified Recurrent major depressive disorder, in partial remission Morbid obesity due to excess calories (HCC) Morbid obesity due to excess calories (HCC)- Primary Autism spectrum disorder (HCC) Autistic disorder, current or active state Schizoaffective disorder, unspecified type (HCC) Obsessive-compulsive disorder, unspecified type Chronic fatigue syndrome with fibromyalgia Chronic bilateral low back pain without sciatica Vertigo Dizziness and giddiness Chronic midline thoracic back pain- Primary 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 [facility] Diagnosis Routine health maintenance- Primary Routine general medical examination at a health care facility Anxiety Anxiety state, unspecified Recurrent major depressive disorder, in partial remission Morbid obesity due to excess calories (HCC) Morbid obesity due to excess calories (HCC)- Primary Autism spectrum disorder (HCC) Autistic disorder, current or active state Schizoaffective disorder, unspecified type (HCC) Obsessive-compulsive disorder, unspecified type Chronic fatigue syndrome with fibromyalgia Chronic bilateral low back pain without sciatica Vertigo Dizziness and giddiness Chronic midline thoracic back pain 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 documented in this encounter [facility] note* Diagnosis Routine health maintenance- Primary Routine general medical examination at a health care facility Anxiety Anxiety state, unspecified Recurrent major depressive disorder, in partial remission Morbid obesity due to excess calories (HCC) Morbid obesity due to excess calories (HCC)- Primary Autism spectrum disorder (HCC) Autistic disorder, current or active state Schizoaffective disorder, unspecified type (HCC) Obsessive-compulsive disorder, unspecified type Chronic fatigue syndrome with fibromyalgia Chronic bilateral low back pain without sciatica Vertigo Dizziness and giddiness Dense breast tissue- Primary documented in this encounter [facility] note* Diagnosis Routine health maintenance- Primary Routine general medical examination at a health care facility Anxiety Anxiety state, unspecified Recurrent major depressive disorder, in partial remission Morbid obesity due to excess calories (HCC) Morbid obesity due to excess calories (HCC)- Primary Autism spectrum disorder (HCC) Autistic disorder, current or active state Schizoaffective disorder, unspecified type (HCC) Obsessive-compulsive disorder, unspecified type Chronic fatigue syndrome with fibromyalgia Chronic bilateral low back pain without sciatica Vertigo Dizziness and giddiness Primary osteoarthritis of both knees- Primary Primary localized osteoarthrosis, lower leg documented in this encounter [facility] note* Diagnosis Routine health maintenance- Primary Routine general medical examination at a health care facility Anxiety Anxiety state, unspecified Recurrent major depressive disorder, in partial remission Morbid obesity due to excess calories (HCC) Morbid obesity due to excess calories (HCC)- Primary Autism spectrum disorder (HCC) Autistic disorder, current or active state Schizoaffective disorder, unspecified type (HCC) Obsessive-compulsive disorder, unspecified type Chronic fatigue syndrome with fibromyalgia Chronic bilateral low back pain without sciatica Vertigo Dizziness and giddiness Mass of upper outer quadrant of right breast- Primary documented in this encounter [facility] for referral (narrative)* Diagnostic Procedure Only (Routine) - Pending Review Specialty Diagnoses / Procedures Referred By Nestorac t Referred To Contact [facility] Diagnoses Abnormal mammogram Procedures US BREAST LTD RT US BREAST UNI REAL TIME WITH IMAGE LIMITED Kiara Pedraza APRN.[employer] [address] [place] [address] [facility] [address] [place] [address] Referral ID Status Reason Start Date Expiration Date Visits Requested Visits Authorized [id number] Pending Review Auto-Generat ed Referral 05/06/2021 06/05/2022 1 1 * Diagnostic Procedure Only (Routine) - Pending Review Specialty Diagnoses / Procedures Referred By Nestorac t Referred To Contact [facility] Diagnoses Abnormal mammogram Procedures US BREAST LTD LT US BREAST UNI REAL TIME WITH IMAGE LIMITED Kiara Pedraza APRN.[employer] [address] [place] [address] [facility] [address] [place] [address] Referral ID Status Reason Start Date Expiration Date Visits Requested Visits Authorized [id number] Pending Review Auto-Generat ed Referral 05/06/2021 06/05/2022 1 1 * Diagnostic Procedure Only (Routine) - Pending Review Specialty Diagnoses / Procedures Referred By Nestorac t Referred To Contact [facility] Diagnoses Abnormal mammogram Procedures DOMINIK DIAGNOSTIC RT DIAGNOSTIC MAMMOGRAPHY COMPUTER-AIDED DETCJ Kiara Irving APRN.[employer] [address] [place] [address] [facility] [address] [place] [address] Referral ID Status Reason Start Date Expiration Date Visits Requested Visits Authorized [id number] Pending Review Auto-Generat ed Referral 05/06/2021 06/05/2022 [address] [facility] for referral (narrative)* Diagnostic Procedure Only (Routine) - Closed Specialty Diagnoses / Procedures Referred By Contac t Referred To Contact [facility] Diagnoses Abnormal mammogram Procedures US BREAST LTD RT US BREAST UNI REAL TIME WITH IMAGE LIMITED Kiara Pedraza APRN.[employer] [address] [place] [address] [facility] [address] [place] [address] Referral ID Status Reason Start Date Expiration Date V isits Requested Visits Authorized [id number] Closed Auto-Generate d Referral 05/06/2021 06/05/2022 1 1 * Diagnostic Procedure Only (Routine) - Closed Specialty Diagnoses / Procedures Referred By Sylvie bowling Referred To Contact [facility] Diagnoses Abnormal mammogram Procedures US BREAST LTD LT US BREAST UNI REAL TIME WITH IMAGE LIMITED Kiara Pedraza APRN.[employer] [address] [place] [address] [facility] [address] [place] [address] Referral ID Status Reason Start Date Expiration Date V isits Requested Visits Authorized [id number] Closed Auto-Generate d Referral 05/06/2021 06/05/2022 [address] [facility] for referral (narrative)* Diagnostic Procedure Only (Routine) - Pending Review Specialty Diagnoses / Procedures Referred By Sylvie bowling Referred To Contact [facility] Diagnoses Abnormal finding on breast imaging Procedures US BIOPSY BREAST RT BX BREAST W/DEVICE 1ST LESION ULTRASOUND GUID Sylvain Mckeon MD [address] [facility] [place] [place] [address] [facility] [address] [place] [address] Referral ID Status Reason Start Date Expiration Date Visits Requested Visits Authorized [id number] Pending Review Auto-Generat ed Referral 06/12/2021 07/12/2022 [address] [facility] for referral (narrative)* Diagnostic Procedure Only (Routine) - Closed Specialty Diagnoses / Procedures Referred By Sylvie bowling Referred To Contact [facility] Diagnoses Abnormal finding on breast imaging Procedures US BIOPSY BREAST RT BX BREAST W/DEVICE 1ST LESION ULTRASOUND Sylvain Phillip MD [address] [place] [address] [facility] [address] [place] [address] Referral ID Status Reason Start Date Expiration Date V isits Requested Visits Authorized [id number] Closed Auto-Generate d Referral 06/12/2021 07/12/2022 [address] [facility] for referral (narrative)* Diagnostic Procedure Only (Routine) - Closed Specialty Diagnoses / Procedures Referred By Sylvie bowling Referred To Contact [facility] Diagnoses Abnormal mammogram Procedures US BREAST LTD RT US BREAST UNI REAL TIME WITH IMAGE LIMITED Esther Osorio MD [address] [place] [address] [facility] [address] [place] [address] Referral ID Status Reason Start Date Expiration Date V isits Requested Visits Authorized [id number] Closed Auto-Generate d Referral 06/14/2021 07/14/2022 1 1 [facility] for referral (narrative)* Diagnostic Procedure Only (Routine) - Pending Review Specialty Diagnoses / Procedures Referred By Sylvie bowling Referred To Contact [facility] Diagnoses Encounter for screening mammogram for breast cancer Procedures DOMINIK SCREENING SCREENING MAMMOGRAPHY BI 2-VIEW BREAST INC CAD Errol Luu MD [address] [place] [address] [facility] [address] [place] [address] Referral ID Status Reason Start Date Expiration Date Visits Requested Visits Authorized [id number] Pending Review Auto-Generat ed Referral 05/21/2022 06/20/2023 1 1 [facility] for referral (narrative)* Diagnostic Procedure Only (Routine) - Closed Specialty Diagnoses / Procedures [facility] To Contact [facility] Diagnoses Encounter for screening mammogram for breast cancer Procedures DOMINIK SCREENING SCREENING MAMMOGRAPHY BI 2-VIEW BREAST INC CAD Errol Luu MD [address] [place] [address] [facility] [address] [place] [address] Referral ID Status Reason Start Date Expiration Date V isits Requested Visits Authorized [id number] Closed Auto-Generate d Referral 05/21/2022 06/20/2023 [address] [facility] for referral (narrative)* Diagnostic Procedure Only (Urgent) - Closed Specialty Diagnoses / Procedures [facility] Ref[facility] To Contact [facility] Diagnoses Acute pain of left shoulder Procedures XR SHOULDER GENERAL 3V OR MORE AP/TRUE AP/OTHER LEFT RADEX SHOULDER COMPLETE MINIMUM 2 VIEWS Chelly Cam PA-C [address] [place] [address] [place] [address] Referral ID Status Reason Start Date Expiration Date V isits Requested Visits Authorized [id number] Closed Auto-Generate d Referral 06/26/2023 07/25/2024 [address] [facility] for referral (narrative)* Diagnostic Procedure Only (Routine) - Closed Specialty Diagnoses / Procedures Referred By Contac t Referred To Contact XR IMAGING Diagnoses Diffuse pain Procedures XR CERVICAL 2V FLEX/EXT RADEX SPINE CERVICAL 2 OR 3 VIEWS Kae Lennon PA-C [address] [place] [address] [place] [address] Referral ID Status Reason Start Date Expiration Date V isits Requested Visits Authorized [id number] Closed Auto-Generate d Referral 03/26/2023 04/24/2024 1 1 * Diagnostic Procedure Only (Routine) - Closed Specialty Diagnoses / Procedures Referred By Contac t Referred To Contact XR IMAGING Diagnoses Diffuse pain Procedures XR KNEE GENERAL 4V AP BOTH/PA BOTH/LAT/MERC BILATERAL RADIOLOGIC EXAM KNEE COMPLETE 4/MORE VIEWS Kae Lennon PA-C [address] [place] [id number] X[facility] [place] [address] Referral ID Status Reason Start Date Expiration Date V isits Requested Visits Authorized [id number] Closed Auto-Generate d Referral 03/26/2023 04/24/2024 1 1 * Diagnostic Procedure Only (Routine) - Closed Specialty Diagnoses / Procedures Referred By Contac t Referred To Contact XR IMAGING Diagnoses Diffuse pain Procedures XR HIP BILATERAL 5V PEL/AP/LAT EACH HIP RADEX HIPS BILATERAL WITH PELVIS MINIMUM 5 VIEWS Kae Lennon PA-C [address] [place] [address] X[facility] Imaging [place] [address] Referral ID Status Reason Start Date Expiration Date V isits Requested Visits Authorized [id number] Closed Auto-Generate d Referral 03/26/2023 04/24/2024 1 1 * Diagnostic Procedure Only (Routine) - Closed Specialty Diagnoses / Procedures Referred By Contac t Referred To Contact XR IMAGING Diagnoses Chronic bilateral low back pain without sciatica Procedures XR SACROILIAC JOINTS 2V AP PELVIS/FERGUESON RADIOLOGIC EXAMINATION SACROILIAC JNTS <3 VIEWS Kae Lennon PA-C [address] [place] [id number] Xr Imaging [facility]95 Referral ID Status Reason Start Date Expiration Date V isits Requested Visits Authorized [id number] Closed Auto-Generate d Referral 03/26/2023 04/24/2024 1 1 * Diagnostic Procedure Only (Routine) - Closed Specialty Diagnoses / Procedures Referred By Contac t Referred To Contact XR IMAGING Diagnoses Chronic bilateral low back pain without sciatica Procedures XR LUMBAR PARS DEFECT 4V AP/LAT/BOTH OBL RADEX SPINE LUMBOSACRAL MINIMUM 4 VIEWS Kae Lennon PA-C [address] [place] [address] [place] [address] Referral ID Status Reason Start Date Expiration Date V isits Requested Visits Authorized [id number] Closed Auto-Generate d Referral 03/26/2023 04/24/2024 [address] [facility] for referral (narrative)* Diagnostic Procedure Only (Routine) - Closed Specialty Diagnoses / Procedures Referred By Contac tawnya Referred To Contact XR IMAGING Diagnoses Pain Procedures XR SHOULDER GENERAL 3V OR MORE AP/TRUE AP/OTHER RIGHT RADEX SHOULDER COMPLETE MINIMUM 2 VIEWS Rosie Ratliff PA-C [address] [place] [address] X[facility] Imaging [place] [address] Referral ID Status Reason Start Date Expiration Date V isits Requested Visits Authorized [id number] Closed Auto-Generate d Referral 10/29/2023 11/27/2024 [address] [facility] for referral (narrative)* Diagnostic Procedure Only (Routine) - New Request Specialty Diagnoses / Procedures Referred By Contac t Referred To Contact [facility] Diagnoses Encounter for other screening for malignant neoplasm of breast Procedures DOMINIK SCREENING W JUVE SCREENING DIGITAL BREAST TOMOSYNTHESIS BI SCREENING MAMMOGRAPHY BI 2-VIEW BREAST INC Yahaira Tan APRN.CNM [address] [place] [address] [facility] [address] [place] [address] Referral ID Status Reason Start Date Expiration Date Visits Requested Visits Authorized [id number] New Request Auto-Generat ed Referral 11/13/2023 12/12/2024 [address] [facility] for referral (narrative)* Outpatient Procedure (Routine) - Pending Review Specialty Diagnoses / Procedures Referred By Nestorac t Referred To Contact [facility] Diagnoses Special screening for malignant neoplasms, colon Procedures COLONOSCOPY SCREENING COLONOSCOPY FLX DX W/COLLJ SPEC WHEN Seema Lundberg MD [address] [place] [address] [facility] [address] [place] [address] Referral ID Status Reason Start Date Expiration Date Visits Requested Visits Authorized [id number] Pending Review Auto-Generat ed Referral 4 12/06/2024 [address] [facility] for referral (narrative)* Diagnostic Procedure Only (Routine) - New Request Specialty Diagnoses / Procedures Referred By Sylvie t Referred To Contact XR IMAGING Diagnoses Pain in both knees, unspecified chronicity Procedures XR KNEE GENERAL 4V AP BOTH/PA BOTH/LAT/MERC BILATERAL RADIOLOGIC EXAM KNEE COMPLETE 4/MORE VIEWS Desirae Zamudio PA-C [address] [place] [address] [place] [address] Referral ID Status Reason Start Date Expiration Date Visits Requested Visits Authorized [id number] New Request Auto-Generat ed Referral 4 03/02/[address] [facility] for referral (narrative)No reason for referral information [facility] Phone: [facility] for visit Narrative* Diagnostic Procedure Only (Routine) - Closed Specialty Diagnoses / Procedures Referred By Sylvie bowling Referred To Contact [facility] Diagnoses Abnormal finding on breast imaging Procedures US BIOPSY BREAST RT BX BREAST W/DEVICE 1ST LESION ULTRASOUND Sylvain Phillip MD [address] [place] [address] [facility] [address] [place] [address] Referral ID Status Reason Start Date Expiration Date V isits Requested Visits Authorized [id number] Closed Auto-Generate d Referral 06/12/2021 07/12/2022 [address] [facility] for visit Narrative* Diagnostic Procedure Only (Routine) - Closed Specialty Diagnoses / Procedures Referred By Contac t Referred To Contact [facility] Diagnoses Abnormal mammogram Procedures US BREAST LTD RT US BREAST UNI REAL TIME WITH IMAGE LIMITED Esther Osorio MD [address] [place] [address] [facility] [address] [place] [address] Referral ID Status Reason Start Date Expiration Date V isits Requested Visits Authorized [id number] Closed Auto-Generate d Referral 06/14/2021 07/14/2022 [address] [facility] for visit Narrative* Diagnostic Procedure Only (Routine) - Closed Specialty Diagnoses / Procedures Referred By Contac t Referred To Contact [facility] Diagnoses Encounter for screening mammogram for breast cancer Procedures DOMINIK SCREENING SCREENING MAMMOGRAPHY BI 2-VIEW BREAST INC CAD Errol Luu MD [address] [place] [address] [facility] [address] [place] [address] Referral ID Status Reason Start Date Expiration Date V isits Requested Visits Authorized [id number] Closed Auto-Generate d Referral 05/21/2022 06/20/2023 [address] [facility] for visit Narrative* Diagnostic Procedure Only (Urgent) - Closed Specialty Diagnoses / Procedures Referred By Contac t Referred To Contact XR IMAGING Diagnoses Acute pain of left shoulder Procedures XR SHOULDER GENERAL 3V OR MORE AP/TRUE AP/OTHER LEFT RADEX SHOULDER COMPLETE MINIMUM 2 VIEWS Chelly Cam PA-C [address] [place] [address] [place] [address] Referral ID Status Reason Start Date Expiration Date V isits Requested Visits Authorized [id number] Closed Auto-Generate d Referral 06/26/2023 07/25/2024 [address] [facility] for visit Narrative* Diagnostic Procedure Only (Routine) - Closed Specialty Diagnoses / Procedures Referred By Contac t Referred To Contact XR IMAGING Diagnoses Diffuse pain Procedures XR CERVICAL 2V FLEX/EXT RADEX SPINE CERVICAL 2 OR 3 VIEWS Kae Lennon PA-C [address] [place] [id number] Xr Imaging [facility]95 Referral ID Status Reason Start Date Expiration Date V isits Requested Visits Authorized [id number] Closed Auto-Generate d Referral 03/26/2023 04/24/2024 [address] [facility] for visit Narrative* Diagnostic Procedure Only (Routine) - Closed Specialty Diagnoses / Procedures Referred By Contac t Referred To Contact XR IMAGING Diagnoses Pain Procedures XR SHOULDER GENERAL 3V OR MORE AP/TRUE AP/OTHER RIGHT RADEX SHOULDER COMPLETE MINIMUM 2 VIEWS Rosie Ratliff PA-C [address] [place] [address] Xr Imaging [facility]95 Referral ID Status Reason Start Date Expiration Date V isits Requested Visits Authorized [id number] Closed Auto-Generate d Referral 10/29/2023 11/27/2024 [address] [facility] for visit Narrative* Outpatient Procedure (Routine) - Closed Specialty Diagnoses / Procedures Referred By Contac t Referred To Contact Diagnoses Special screening for malignant neoplasms, colon Procedures COLONOSCOPY SCREENING COLONOSCOPY FLX DX W/COLLJ SPEC WHEN Seema Lundberg MD [address] [place] [address] Phone: tel: fax: [facility] [address] [place] [address] Referral ID Status Reason Start Date Expiration Date V isits Requested Visits Authorized [id number] Closed Auto-Generate d Referral 03/30/2024 06/28/2024 [address] [facility] for visit Narrative* Diagnostic Procedure Only (Routine) - Closed Specialty Diagnoses / Procedures Referred By Contac t Referred To Contact XR IMAGING Diagnoses Pain in both knees, unspecified chronicity Procedures XR KNEE GENERAL 4V AP BOTH/PA BOTH/LAT/MERC BILATERAL RADIOLOGIC EXAM KNEE COMPLETE 4/MORE VIEWS Desirae Zamudio PA-C [address] [place] [address] Phone: tel: fax: XR IMAGING [facility]95 Referral ID Status Reason Start Date Expiration Date V isits Requested Visits Authorized [id number] Closed Auto-Generate d Referral 02/01/2024 03/02/2025 [address] [facility] for visit Narrative* Diagnostic Procedure Only (Routine) - Closed Specialty Diagnoses / Procedures Referred By Sylvie t Referred To Contact [facility] Diagnoses Encounter for other screening for malignant neoplasm of breast Procedures DOMINIK SCREENING W JUVE SCREENING DIGITAL BREAST TOMOSYNTHESIS BI SCREENING MAMMOGRAPHY BI 2-VIEW BREAST INC CAD JeremiahYahaira APRN.CN [address] [place] [address] Phone: tel: fax: [facility] [address] [place] [address] Referral ID Status Reason Start Date Expiration Date V isits Requested Visits Authorized [id number] Closed Auto-Generate d Referral 11/13/2023 12/12/2024 [address] [facility] for visit Narrative* Diagnostic Procedure Only (Routine) - Closed Specialty Diagnoses / Procedures Referred By Sylvie bowling Referred To Contact [facility] Diagnoses Abnormal screening mammogram Procedures US BREAST LTD RIGHT US BREAST UNI REAL TIME WITH IMAGE LIMITED Jeremiah MARCK Syed.CN [address] [place] [address] Phone: tel: fax:[phone] [facility] [address] [place] [address] Referral ID Status Reason Start Date Expiration Date V isits Requested Visits Authorized [id number] Closed Auto-Generate d Referral 05/13/2024 06/12/2025 [address] 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 Procedures XR THORACIC GENERAL 3V AP/LAT/SWIMMERS RADEX SPINE THORACIC 3 VIEWS Mario Osborne PA-C [address] [place] [address] Phone: tel: fax:[phone] [address] Referral ID Status Reason Start Date Expiration Date V isits Requested Visits Authorized [id number] Closed Auto-Generate d Referral 06/16/2024 07/16/2025 1 1 [facility] Chief Complaint and Reason for Visit Chief Complaint PFIZER VACCINE Chief Complaint Admit Date Left foot pain, sore throat July 29, 2 025 6:55pm Reason for Referral Specialty Diagnoses / Procedures Referred By Contac t Referred To Contact Rheumatology Diagnoses Chondromalacia of right patella Chondromalacia of left patella Chronic pain of both knees Primary osteoarthritis of both knees Procedures CONSULT TO RHEUM/IMMUN DISEASE OFFICE/OUTPATIENT [facility] 60-74 MINUTES Phil Flowers MD [address] [place] [address] Referral ID Status Reason Start Date Expiration Date Visits Requested Visits Authorized [id number] Authorized PCP Requested Referral 05/27/2021 05/27/2022 1 1 Specialty Diagnoses / Procedures Referred By Contac t Referred To Contact Rheumatology Diagnoses Diffuse pain Chronic bilateral low back pain without sciatica Procedures CONSULT TO RHEUM/IMMUN DISEASE OFFICE/OUTPATIENT [facility] 60-74 MINUTES Tico Root, CERAMIC ENGINEER.[employer]NACE MANAGER [address] [place] [address] Referral ID Status Reason Start Date Expiration Date Visits Requested Visits Authorized [id number] Authorized PCP Requested Referral 10/31/2022 10/31/2023 1 1 Specialty Diagnoses / Procedures Referred By Contac t Referred To Contact Diagnoses Chronic insomnia Procedures CONSULT TO SLEEP MEDICINE - ADULT OFFICE/OUTPATIENT [facility] 60-74 MINUTES Tico Root, CERAMIC ENGINEER.BATCH AND FURNACE MANAGER [address] [place] [address] Referral ID Status Reason Start Date Expiration Date Visits Requested Visits Authorized [id number] Authorized PCP Requested Referral 10/31/2022 10/31/2023 1 1 Specialty Diagnoses / Procedures Referred By Contac t Referred To Contact Diagnoses Morbid obesity with BMI of 40.0-44.9, adult (HCC) Morbid obesity due to excess calories (HCC) Procedures CONSULT BARIATRIC/[facility]OLIC INSTITUTE OFFICE/OUTPATIENT [facility] 60-74 MINUTES Tico Root, CERAMIC ENGINEER.BATCH AND FURNACE MANAGER [address] [place] [address] Referral ID Status Reason Start Date Expiration Date Visits Requested Visits Authorized [id number] Authorized PCP Requested Referral 10/31/2022 10/31/2023 1 1 Specialty Diagnoses / Procedures Referred By Contac t Referred To Contact [facility] Diagnoses Diffuse pain Procedures CONSULT TO PHYSICAL THERAPY PHYSICAL THERAPY EVALUATION HIGH COMPLEX 45 MINS Kae Lennon PA-C [address] [phone] [facility] [place] [address] [place] [address] Referral ID Status Reason Start Date Expiration Date Visits Requested Visits Authorized [id number] Authorized Auto-Generat ed Referral 02/09/2023 02/09/2024 1 1 Specialty Diagnoses / Procedures Referred By Contac t Referred To Contact XR IMAGING Diagnoses Diffuse pain Procedures XR CERVICAL 2V FLEX/EXT RADEX SPINE CERVICAL 2 OR 3 VIEWS Kae Lennon PA-C [address] [phone] Xr Imaging [id number] Referral ID Status Reason Start Date Expiration Date V isits Requested Visits Authorized [id number] Closed Auto-Generate d Referral 03/26/2023 04/24/2024 1 1 Specialty Diagnoses / Procedures Referred By Contac t Referred To Contact Dermatology Diagnoses Rosacea Procedures CONSULT TO DERMATOLOGY OFFICE/OUTPATIENT [facility] MDM 60 MINUTES Kae Lennon PA-C [address] [phone] Referral ID Status Reason Start Date Expiration Date Visits Requested Visits Authorized [id number] Authorized PCP Requested Referral 03/26/2023 03/25/2024 1 1 Specialty Diagnoses / Procedures Referred By Contac t Referred To Contact XR IMAGING Diagnoses Diffuse pain Procedures XR KNEE GENERAL 4V AP BOTH/PA BOTH/LAT/MERC BILATERAL RADIOLOGIC EXAM KNEE COMPLETE 4/MORE VIEWS Kae Lennon PA-C [address] [phone] Xr Imaging [id number] Referral ID Status Reason Start Date Expiration Date V isits Requested Visits Authorized [id number] Closed Auto-Generate d Referral 03/26/2023 04/24/2024 1 1 Specialty Diagnoses / Procedures Referred By Contac t Referred To Contact XR IMAGING Diagnoses Diffuse pain Procedures XR HIP BILATERAL 5V PEL/AP/LAT EACH HIP RADEX HIPS BILATERAL WITH PELVIS MINIMUM 5 VIEWS Kae Lennon PA-C [address] [place] [address] Xr Imaging [place] [address] Referral ID Status Reason Start Date Expiration Date V isits Requested Visits Authorized [id number] Closed Auto-Generate d Referral 03/26/2023 04/24/2024 1 1 Specialty Diagnoses / Procedures Referred By Contac t Referred To Contact Endocrinology Diagnoses Class 3 severe obesity due to excess calories without serious comorbidity with body mass index (BMI) of 40.0 to 44.9 in adult (HCC) Procedures CONSULT TO ENDOCRINOLOGY OFFICE/OUTPATIENT [facility] 60 MINUTES Kae Lennon PA-C [address] [place] [address] Referral ID Status Reason Start Date Expiration Date Visits Requested Visits Authorized [id number] Authorized PCP Requested Referral 03/26/2023 03/25/2024 1 1 Specialty Diagnoses / Procedures Referred By Contac t Referred To Contact [facility] [place] Diagnoses Diffuse pain Fibromyalgia Procedures CONSULT TO [facility] (CHRONIC PAIN) OFFICE/OUTPATIENT [facility] MDM 60 MINUTES Kae Lennon PA-C [address] [place] [address] Referral ID Status Reason Start Date Expiration Date Visits Requested Visits Authorized [id number] Pending Review PCP Requested Referral 03/26/2023 03/25/2024 1 1 Specialty Diagnoses / Procedures Referred By Contac t Referred To Contact XR IMAGING Diagnoses Chronic bilateral low back pain without sciatica Procedures XR SACROILIAC JOINTS 2V AP PELVIS/FERGUESON RADIOLOGIC EXAMINATION SACROILIAC JNTS <3 VIEWS Kae Lennon PA-C [address] [place] [address] [place] [address] Referral ID Status Reason Start Date Expiration Date V isits Requested Visits Authorized [id number] Closed Auto-Generate d Referral 03/26/2023 04/24/2024 1 1 Specialty Diagnoses / Procedures Referred By Contac t Referred To Contact XR IMAGING Diagnoses Chronic bilateral low back pain without sciatica Procedures XR LUMBAR PARS DEFECT 4V AP/LAT/BOTH OBL RADEX SPINE LUMBOSACRAL MINIMUM 4 VIEWS Kae Lennon PA-C [address] [address] [place] [address] Referral ID Status Reason Start Date Expiration Date V isits Requested Visits Authorized [id number] Closed Auto-Generate d Referral 03/26/2023 04/24/2024 1 1 Specialty Diagnoses / Procedures Referred By Contac t Referred To Contact Orthopedics Diagnoses Acute pain of left shoulder Procedures CONSULT TO ORTHOPAEDICS OFFICE/OUTPATIENT [facility] 60 MINUTES Chelly Cam PA-C [address] [place] [address] Referral ID Status Reason Start Date Expiration Date Visits Requested Visits Authorized [id number] Authorized PCP Requested Referral 06/26/2023 06/25/2024 1 1 Specialty Diagnoses / Procedures Referred By Contac t Referred To Contact XR IMAGING Diagnoses Acute pain of left shoulder Procedures XR SHOULDER GENERAL 3V OR MORE AP/TRUE AP/OTHER LEFT RADEX SHOULDER COMPLETE MINIMUM 2 VIEWS Chelly Cam PA-C [address] [place] [address] Xr Imaging [id number] Referral ID Status Reason Start Date Expiration Date V isits Requested Visits Authorized [id number] Closed Auto-Generate d Referral 06/26/2023 07/25/2024 1 1 Specialty Diagnoses / Procedures Referred By Contac t Referred To Contact [facility] Diagnoses Impingement of left shoulder Procedures CONSULT TO PHYSICAL THERAPY PHYSICAL THERAPY EVALUATION HIGH COMPLEX 45 MINS Rosie Ratliff PA-C [address] [place] [address] [facility] [place] [address] [place] [address] Referral ID Status Reason Start Date Expiration Date Visits Requested Visits Authorized [id number] Pending Review Auto-Generat ed Referral 07/17/2023 07/16/2024 1 1 Specialty Diagnoses / Procedures Referred By Contac t Referred To Contact Rheumatology Diagnoses Hypermobility syndrome Procedures CONSULT TO RHEUM/IMMUN DISEASE OFFICE/OUTPATIENT [facility] 60 MINUTES Ciera King, [place] [address] Referral ID Status Reason Start Date Expiration Date Visits Requested Visits Authorized [id number] Authorized PCP Requested Referral 10/22/2023 10/21/2024 1 1 Specialty Diagnoses / Procedures Referred By Contac t Referred To Contact Neurology Diagnoses POTS (postural orthostatic tachycardia syndrome) Procedures CONSULT TO NEUROLOGY OFFICE/OUTPATIENT [facility]ES [facility] [place] [address] Referral ID Status Reason Start Date Expiration Date Visits Requested Visits Authorized [id number] Authorized PCP Requested Referral 10/22/2023 10/21/2024 1 1 Specialty Diagnoses / Procedures Referred By Contac t Referred To Contact [facility] Diagnoses Tinnitus, bilateral Dizziness Procedures CONSULT TO PHYSICAL THERAPY PHYSICAL THERAPY EVALUATION HIGH COMPLEX 45 MINS Igor Blair APRN.[employer] CLEANER [address] [place] [address] [facility] [place] [address] Referral ID Status Reason Start Date Expiration Date Visits Requested Visits Authorized [id number] Authorized Auto-Generat ed Referral 02/09/2023 02/09/2024 1 1 Specialty Diagnoses / Procedures Referred By Contac t Referred To Contact Ent - Otolaryngology Diagnoses Tinnitus, bilateral Dizziness Sensation of fullness in both ears Procedures CONSULT TO ENT OFFICE/OUTPATIENT [facility] 60 MINUTES Igor Blair APRN.CHROME CLEANER [address] [place] [address] Referral ID Status Reason Start Date Expiration Date Visits Requested Visits Authorized [id number] Authorized PCP Requested Referral 11/25/2024 1 1 Specialty Diagnoses / Procedures Referred By Contac t Referred To Contact [facility] Diagnoses Pre-syncope Orthostatic lightheadedness Palpitations Procedures ECHO ECHO TTHRC R-T 2D W/WOM-MODE COMPL SPEC&COLR D Igor Blair, CERAMIC ENGINEER.[facility] [address] [place] [address] [facility] [address] [address] Referral ID Status Reason Start Date Expiration Date Visits Requested Visits Authorized [id number] Authorized Auto-Generat ed Referral 4 11/25/2024 1 1 Specialty Diagnoses / Procedures Referred By Contac t Referred To Contact CT IMAGING Diagnoses Left lower quadrant abdominal pain Periumbilical pain Periumbilical hernia Procedures CT ABD/PEL WO IVCON CT ABD & PELVIS W/O CONTRAST Tico Root, CERAMIC ENGINEER.[facility] [address] [place] [address] Ct Imaging [place] [address] Referral ID Status Reason Start Date Expiration Date Visits Requested Visits Authorized [id number] Additional Clinical Info Needed Auto-Generat ed Referral 4 01/01/2025 1 1 Specialty Diagnoses / Procedures Referred By Contac t Referred To Contact General Surgery Diagnoses Special screening for malignant neoplasms, colon Procedures CONSULT TO GENERAL SURGERY OFFICE/OUTPATIENT [facility] 60 MINUTES Tico Root, CERAMIC ENGINEER.BATCH AND FURNACE MANAGER [address] [place] [address] Referral ID Status Reason Start Date Expiration Date Visits Requested Visits Authorized [id number] Authorized PCP Requested Referral 4 12/02/2024 1 1 Specialty Diagnoses / Procedures Referred By Contac t Referred To Contact Diagnoses Class 3 severe obesity due to excess calories without serious comorbidity with body mass index (BMI) of 40.0 to 44.9 in adult (HCC) Procedures ENDOCRINOLOGY DIETITIAN VISIT (MNT) MEDICAL NUTRITION ASSMT&IVNTJ INDIV EACH 15 [place] MEDICAL NUTRITION ASSMT&IVNTJ INDIV EACH 15 [place] MEDICAL NUTRITION ASSMT&IVNTJ INDIV EACH 15 [place] MEDICAL NUTRITION ASSMT&IVNTJ INDIV EACH [place] [address] [place] [address] Referral ID Status Reason Start Date Expiration Date Visits Requested Visits Authorized [id number] Authorized PCP Requested Referral 01/05/2025 1 1 Specialty Diagnoses / Procedures Referred By Contac t Referred To Contact [facility] Diagnoses Dizziness Vertigo Procedures CONSULT TO PHYSICAL THERAPY PHYSICAL THERAPY EVALUATION HIGH COMPLEX 45 MINS Merlene Mchugh PA-C [address] [place] [address] [facility] [place] [address] [place] [address] Referral ID Status Reason Start Date Expiration Date Visits Requested Visits Authorized [id number] Authorized Auto-Generat ed Referral 12/11/2023 02/09/2024 1 1 Specialty Diagnoses / Procedures Referred By Contac t Referred To Contact Diagnoses Tinnitus, bilateral Procedures CONSULT [facility] Merlene Mchugh PA-C [address] [place] [address] Caroline Reyes PSYD [address] [place] [address] Referral ID Status Reason Start Date Expiration Date Visits Requested Visits Authorized [id number] Ref Not Required PCP Requested Referral 04/05/2024 1 1 Medications Administered Section Inactive Administered Medications - up to 3 most recent administrations Medication Order MAR Action Action Date Dose Rate Site betamethasone acetate-betamethasone sodium phosphate 6 mg injection (CELESTONE) 6 mg, Injection - FOR ORTHO USE ONLY, ONE TIME INJECTION, 1 dose, Starting on Thu06/03/21 at 1235, Until Thu06/03/21 at 1235 Given 06/03/2021 12:35 PM EDT 6 mg lidocaine (PF) 10 mg/mL (1 %) 5 mL injection (XYLOCAINE) 5 mL, Injection - FOR ORTHO USE ONLY, ONE TIME INJECTION, 1 dose, Starting on Thu06/03/21 at 1235, Until Thu06/03/21 at 1235 Given 06/03/2021 12:35 PM EDT 5 mL Inactive Administered Medications - up to 3 most recent administrations Medication Order MAR Action Action Date Dose Rate Site lidocaine 10 mg/mL (1 %) injection (XYLOCAINE) OTHER, NEEDED, Starting on Thu07/03/21 at 0913, Until Thu07/03/21 at 0913 Given 07/03/2021 9:13 AM EDT 50 mg Breast, Right Inactive Administered Medications - up to 3 most recent administrations Medication Order MAR Action Action Date Dose Rate Site betamethasone acetate-betamethasone sodium phosphate 6 mg injection (CELESTONE) 6 mg, Injection - FOR ORTHO USE ONLY, ONE TIME INJECTION, 1 dose, Starting on Thu09/02/21 at 1437, Until Thu09/02/21 at 1437 Given 09/02/2021 2:37 PM EDT 6 mg lidocaine (PF) 10 mg/mL (1 %) 5 mL injection (XYLOCAINE) 5 mL, Injection - FOR ORTHO USE ONLY, ONE TIME INJECTION, 1 dose, Starting on Thu09/02/21 at 1437, Until Thu09/02/21 at 1437 Given 09/02/2021 2:37 PM EDT 5 mL Summary Purpose Family History No Family History Records FoundNo Family History Records FoundNo Family History Records Found Advance Directives Advance Directive Response Recorded Date/ Time Advance Directives No July 29 7:12pm Additional Source Comments Goals (unrecognized section and content) Goals may be documented in a n alternate sectionGoals may be documented in an alternate section Source Comments (unrecognize d section and content) In the event this informatio n is protected by the Federal Confidentiality of Alcohol and Drug Abuse Patient Records regulations: The Federal rules restrict any use of the information to criminally investigate or prosecute any alcohol or drug abuse patient.[facility] the event this information is protected by the Federal Confidentiality of Alcohol and Drug Abuse Patient Records regulations: The Federal rules restrict any use of the information to criminally investigate or prosecute any alcohol or drug abuse patient.[facility] HospitalIn the event this information is protected by the Federal Confidentiality of Alcohol and Drug Abuse Patient Records regulations: The Federal rules restrict any use of the information to criminally investigate or prosecute any alcohol or drug abuse patient.[facility] HospitalIn the event this information is protected by the Federal Confidentiality of Alcohol and Drug Abuse Patient Records regulations: The Federal rules restrict any use of the information to criminally investigate or prosecute any alcohol or drug abuse patient.[facility] HospitalIn the event this information is protected by the Federal Confidentiality of Alcohol and Drug Abuse Patient Records regulations: The Federal rules restrict any use of the information to criminally investigate or prosecute any alcohol or drug abuse patient.[facility] HospitalIn the event this information is protected by the Federal Confidentiality of Alcohol and Drug Abuse Patient Records regulations: The Federal rules restrict any use of the information to criminally investigate or prosecute any alcohol or drug abuse patient.[facility] HospitalIn the event this information is protected by the Federal Confidentiality of Alcohol and Drug Abuse Patient Records regulations: The Federal rules restrict any use of the information to criminally investigate or prosecute any alcohol or drug abuse patient.[facility] HospitalIn the event this information is protected by the Federal Confidentiality of Alcohol and Drug Abuse Patient Records regulations: The Federal rules restrict any use of the information to criminally investigate or prosecute any alcohol or drug abuse patient.[facility] HospitalIn the event this information is protected by the Federal Confidentiality of Alcohol and Drug Abuse Patient Records regulations: The Federal rules restrict any use of the information to criminally investigate or prosecute any alcohol or drug abuse patient.[facility] HospitalIn the event this information is protected by the Federal Confidentiality of Alcohol and Drug Abuse Patient Records regulations: The Federal rules restrict any use of the information to criminally investigate or prosecute any alcohol or drug abuse patient.[facility] HospitalIn the event this information is protected by the Federal Confidentiality of Alcohol and Drug Abuse Patient Records regulations: The Federal rules restrict any use of the information to criminally investigate or prosecute any alcohol or drug abuse patient.[facility] HospitalIn the event this information is protected by the Federal Confidentiality of Alcohol and Drug Abuse Patient Records regulations: The Federal rules restrict any use of the information to criminally investigate or prosecute any alcohol or drug abuse patient.[facility] HospitalIn the event this information is protected by the Federal Confidentiality of Alcohol and Drug Abuse Patient Records regulations: The Federal rules restrict any use of the information to criminally investigate or prosecute any alcohol or drug abuse patient.[facility] HospitalIn the event this information is protected by the Federal Confidentiality of Alcohol and Drug Abuse Patient Records regulations: The Federal rules restrict any use of the information to criminally investigate or prosecute any alcohol or drug abuse patient.[facility] HospitalIn the event this information is protected by the Federal Confidentiality of Alcohol and Drug Abuse Patient Records regulations: The Federal rules restrict any use of the information to criminally investigate or prosecute any alcohol or drug abuse patient.[facility] HospitalIn the event this information is protected by the Federal Confidentiality of Alcohol and Drug Abuse Patient Records regulations: The Federal rules restrict any use of the information to criminally investigate or prosecute any alcohol or drug abuse patient.[facility] HospitalIn the event this information is protected by the Federal Confidentiality of Alcohol and Drug Abuse Patient Records regulations: The Federal rules restrict any use of the information to criminally investigate or prosecute any alcohol or drug abuse patient.[facility] HospitalIn the event this information is protected by the Federal Confidentiality of Alcohol and Drug Abuse Patient Records regulations: The Federal rules restrict any use of the information to criminally investigate or prosecute any alcohol or drug abuse patient.[facility] HospitalIn the event this information is protected by the Federal Confidentiality of Alcohol and Drug Abuse Patient Records regulations: The Federal rules restrict any use of the information to criminally investigate or prosecute any alcohol or drug abuse patient.[facility] HospitalIn the event this information is protected by the Federal Confidentiality of Alcohol and Drug Abuse Patient Records regulations: The Federal rules restrict any use of the information to criminally investigate or prosecute any alcohol or drug abuse patient.[facility] HospitalIn the event this information is protected by the Federal Confidentiality of Alcohol and Drug Abuse Patient Records regulations: The Federal rules restrict any use of the information to criminally investigate or prosecute any alcohol or drug abuse patient.[facility] HospitalIn the event this information is protected by the Federal Confidentiality of Alcohol and Drug Abuse Patient Records regulations: The Federal rules restrict any use of the information to criminally investigate or prosecute any alcohol or drug abuse patient.[facility] HospitalIn the event this information is protected by the Federal Confidentiality of Alcohol and Drug Abuse Patient Records regulations: The Federal rules restrict any use of the information to criminally investigate or prosecute any alcohol or drug abuse patient.[facility] HospitalIn the event this information is protected by the Federal Confidentiality of Alcohol and Drug Abuse Patient Records regulations: The Federal rules restrict any use of the information to criminally investigate or prosecute any alcohol or drug abuse patient.[facility] HospitalIn the event this information is protected by the Federal Confidentiality of Alcohol and Drug Abuse Patient Records regulations: The Federal rules restrict any use of the information to criminally investigate or prosecute any alcohol or drug abuse patient.[facility] HospitalIn the event this information is protected by the Federal Confidentiality of Alcohol and Drug Abuse Patient Records regulations: The Federal rules restrict any use of the information to criminally investigate or prosecute any alcohol or drug abuse patient.[facility] HospitalIn the event this information is protected by the Federal Confidentiality of Alcohol and Drug Abuse Patient Records regulations: The Federal rules restrict any use of the information to criminally investigate or prosecute any alcohol or drug abuse patient.[facility] HospitalIn the event this information is protected by the Federal Confidentiality of Alcohol and Drug Abuse Patient Records regulations: The Federal rules restrict any use of the information to criminally investigate or prosecute any alcohol or drug abuse patient.[facility] HospitalIn the event this information is protected by the Federal Confidentiality of Alcohol and Drug Abuse Patient Records regulations: The Federal rules restrict any use of the information to criminally investigate or prosecute any alcohol or drug abuse patient.[facility] HospitalIn the event this information is protected by the Federal Confidentiality of Alcohol and Drug Abuse Patient Records regulations: The Federal rules restrict any use of the information to criminally investigate or prosecute any alcohol or drug abuse patient.[facility] HospitalIn the event this information is protected by the Federal Confidentiality of Alcohol and Drug Abuse Patient Records regulations: The Federal rules restrict any use of the information to criminally investigate or prosecute any alcohol or drug abuse patient.[facility] HospitalIn the event this information is protected by the Federal Confidentiality of Alcohol and Drug Abuse Patient Records regulations: The Federal rules restrict any use of the information to criminally investigate or prosecute any alcohol or drug abuse patient.[facility] HospitalIn the event this information is protected by the Federal Confidentiality of Alcohol and Drug Abuse Patient Records regulations: The Federal rules restrict any use of the information to criminally investigate or prosecute any alcohol or drug abuse patient.[facility] HospitalIn the event this information is protected by the Federal Confidentiality of Alcohol and Drug Abuse Patient Records regulations: The Federal rules restrict any use of the information to criminally investigate or prosecute any alcohol or drug abuse patient.[facility] HospitalIn the event this information is protected by the Federal Confidentiality of Alcohol and Drug Abuse Patient Records regulations: The Federal rules restrict any use of the information to criminally investigate or prosecute any alcohol or drug abuse patient.[facility] HospitalIn the event this information is protected by the Federal Confidentiality of Alcohol and Drug Abuse Patient Records regulations: The Federal rules restrict any use of the information to criminally investigate or prosecute any alcohol or drug abuse patient.[facility] HospitalIn the event this information is protected by the Federal Confidentiality of Alcohol and Drug Abuse Patient Records regulations: The Federal rules restrict any use of the information to criminally investigate or prosecute any alcohol or drug abuse patient.[facility] HospitalIn the event this information is protected by the Federal Confidentiality of Alcohol and Drug Abuse Patient Records regulations: The Federal rules restrict any use of the information to criminally investigate or prosecute any alcohol or drug abuse patient.[facility] HospitalIn the event this information is protected by the Federal Confidentiality of Alcohol and Drug Abuse Patient Records regulations: The Federal rules restrict any use of the information to criminally investigate or prosecute any alcohol or drug abuse patient.[facility] HospitalIn the event this information is protected by the Federal Confidentiality of Alcohol and Drug Abuse Patient Records regulations: The Federal rules restrict any use of the information to criminally investigate or prosecute any alcohol or drug abuse patient.[facility] HospitalIn the event this information is protected by the Federal Confidentiality of Alcohol and Drug Abuse Patient Records regulations: The Federal rules restrict any use of the information to criminally investigate or prosecute any alcohol or drug abuse patient.[facility] HospitalIn the event this information is protected by the Federal Confidentiality of Alcohol and Drug Abuse Patient Records regulations: The Federal rules restrict any use of the information to criminally investigate or prosecute any alcohol or drug abuse patient.[facility] HospitalIn the event this information is protected by the Federal Confidentiality of Alcohol and Drug Abuse Patient Records regulations: The Federal rules restrict any use of the information to criminally investigate or prosecute any alcohol or drug abuse patient.[facility] HospitalIn the event this information is protected by the Federal Confidentiality of Alcohol and Drug Abuse Patient Records regulations: The Federal rules restrict any use of the information to criminally investigate or prosecute any alcohol or drug abuse patient.[facility] HospitalIn the event this information is protected by the Federal Confidentiality of Alcohol and Drug Abuse Patient Records regulations: The Federal rules restrict any use of the information to criminally investigate or prosecute any alcohol or drug abuse patient.[facility] HospitalIn the event this information is protected by the Federal Confidentiality of Alcohol and Drug Abuse Patient Records regulations: The Federal rules restrict any use of the information to criminally investigate or prosecute any alcohol or drug abuse patient.[facility] HospitalIn the event this information is protected by the Federal Confidentiality of Alcohol and Drug Abuse Patient Records regulations: The Federal rules restrict any use of the information to criminally investigate or prosecute any alcohol or drug abuse patient.[facility] HospitalIn the event this information is protected by the Federal Confidentiality of Alcohol and Drug Abuse Patient Records regulations: The Federal rules restrict any use of the information to criminally investigate or prosecute any alcohol or drug abuse patient.[facility] HospitalIn the event this information is protected by the Federal Confidentiality of Alcohol and Drug Abuse Patient Records regulations: The Federal rules restrict any use of the information to criminally investigate or prosecute any alcohol or drug abuse patient.[facility] HospitalIn the event this information is protected by the Federal Confidentiality of Alcohol and Drug Abuse Patient Records regulations: The Federal rules restrict any use of the information to criminally investigate or prosecute any alcohol or drug abuse patient.[facility] HospitalIn the event this information is protected by the Federal Confidentiality of Alcohol and Drug Abuse Patient Records regulations: The Federal rules restrict any use of the information to criminally investigate or prosecute any alcohol or drug abuse patient.[facility] HospitalIn the event this information is protected by the Federal Confidentiality of Alcohol and Drug Abuse Patient Records regulations: The Federal rules restrict any use of the information to criminally investigate or prosecute any alcohol or drug abuse patient.[facility] HospitalIn the event this information is protected by the Federal Confidentiality of Alcohol and Drug Abuse Patient Records regulations: The Federal rules restrict any use of the information to criminally investigate or prosecute any alcohol or drug abuse patient.[facility] HospitalIn the event this information is protected by the Federal Confidentiality of Alcohol and Drug Abuse Patient Records regulations: The Federal rules restrict any use of the information to criminally investigate or prosecute any alcohol or drug abuse patient.[facility] HospitalIn the event this information is protected by the Federal Confidentiality of Alcohol and Drug Abuse Patient Records regulations: The Federal rules restrict any use of the information to criminally investigate or prosecute any alcohol or drug abuse patient.[facility] HospitalIn the event this information is protected by the Federal Confidentiality of Alcohol and Drug Abuse Patient Records regulations: The Federal rules restrict any use of the information to criminally investigate or prosecute any alcohol or drug abuse patient.[facility] HospitalIn the event this information is protected by the Federal Confidentiality of Alcohol and Drug Abuse Patient Records regulations: The Federal rules restrict any use of the information to criminally investigate or prosecute any alcohol or drug abuse patient.[facility] HospitalIn the event this information is protected by the Federal Confidentiality of Alcohol and Drug Abuse Patient Records regulations: The Federal rules restrict any use of the information to criminally investigate or prosecute any alcohol or drug abuse patient.[facility] HospitalIn the event this information is protected by the Federal Confidentiality of Alcohol and Drug Abuse Patient Records regulations: The Federal rules restrict any use of the information to criminally investigate or prosecute any alcohol or drug abuse patient.[facility] HospitalIn the event this information is protected by the Federal Confidentiality of Alcohol and Drug Abuse Patient Records regulations: The Federal rules restrict any use of the information to criminally investigate or prosecute any alcohol or drug abuse patient.[facility] HospitalIn the event this information is protected by the Federal Confidentiality of Alcohol and Drug Abuse Patient Records regulations: The Federal rules restrict any use of the information to criminally investigate or prosecute any alcohol or drug abuse patient.[facility] HospitalIn the event this information is protected by the Federal Confidentiality of Alcohol and Drug Abuse Patient Records regulations: The Federal rules restrict any use of the information to criminally investigate or prosecute any alcohol or drug abuse patient.[facility] HospitalIn the event this information is protected by the Federal Confidentiality of Alcohol and Drug Abuse Patient Records regulations: The Federal rules restrict any use of the information to criminally investigate or prosecute any alcohol or drug abuse patient.[facility] HospitalIn the event this information is protected by the Federal Confidentiality of Alcohol and Drug Abuse Patient Records regulations: The Federal rules restrict any use of the information to criminally investigate or prosecute any alcohol or drug abuse patient.[facility] HospitalIn the event this information is protected by the Federal Confidentiality of Alcohol and Drug Abuse Patient Records regulations: The Federal rules restrict any use of the information to criminally investigate or prosecute any alcohol or drug abuse patient.[facility] HospitalIn the event this information is protected by the Federal Confidentiality of Alcohol and Drug Abuse Patient Records regulations: The Federal rules restrict any use of the information to criminally investigate or prosecute any alcohol or drug abuse patient.[facility] HospitalIn the event this information is protected by the Federal Confidentiality of Alcohol and Drug Abuse Patient Records regulations: The Federal rules restrict any use of the information to criminally investigate or prosecute any alcohol or drug abuse patient.[facility] HospitalIn the event this information is protected by the Federal Confidentiality of Alcohol and Drug Abuse Patient Records regulations: The Federal rules restrict any use of the information to criminally investigate or prosecute any alcohol or drug abuse patient.[facility] HospitalIn the event this information is protected by the Federal Confidentiality of Alcohol and Drug Abuse Patient Records regulations: The Federal rules restrict any use of the information to criminally investigate or prosecute any alcohol or drug abuse patient.[facility] HospitalIn the event this information is protected by the Federal Confidentiality of Alcohol and Drug Abuse Patient Records regulations: The Federal rules restrict any use of the information to criminally investigate or prosecute any alcohol or drug abuse patient.[facility] HospitalIn the event this information is protected by the Federal Confidentiality of Alcohol and Drug Abuse Patient Records regulations: The Federal rules restrict any use of the information to criminally investigate or prosecute any alcohol or drug abuse patient.[facility] HospitalIn the event this information is protected by the Federal Confidentiality of Alcohol and Drug Abuse Patient Records regulations: The Federal rules restrict any use of the information to criminally investigate or prosecute any alcohol or drug abuse patient.[facility] HospitalIn the event this information is protected by the Federal Confidentiality of Alcohol and Drug Abuse Patient Records regulations: The Federal rules restrict any use of the information to criminally investigate or prosecute any alcohol or drug abuse patient.[facility] HospitalIn the event this information is protected by the Federal Confidentiality of Alcohol and Drug Abuse Patient Records regulations: The Federal rules restrict any use of the information to criminally investigate or prosecute any alcohol or drug abuse patient.[facility] HospitalIn the event this information is protected by the Federal Confidentiality of Alcohol and Drug Abuse Patient Records regulations: The Federal rules restrict any use of the information to criminally investigate or prosecute any alcohol or drug abuse patient.[facility] HospitalIn the event this information is protected by the Federal Confidentiality of Alcohol and Drug Abuse Patient Records regulations: The Federal rules restrict any use of the information to criminally investigate or prosecute any alcohol or drug abuse patient.[facility] HospitalIn the event this information is protected by the Federal Confidentiality of Alcohol and Drug Abuse Patient Records regulations: The Federal rules restrict any use of the information to criminally investigate or prosecute any alcohol or drug abuse patient.[facility] HospitalIn the event this information is protected by the Federal Confidentiality of Alcohol and Drug Abuse Patient Records regulations: The Federal rules restrict any use of the information to criminally investigate or prosecute any alcohol or drug abuse patient.[facility] HospitalIn the event this information is protected by the Federal Confidentiality of Alcohol and Drug Abuse Patient Records regulations: The Federal rules restrict any use of the information to criminally investigate or prosecute any alcohol or drug abuse patient.[facility] HospitalIn the event this information is protected by the Federal Confidentiality of Alcohol and Drug Abuse Patient Records regulations: The Federal rules restrict any use of the information to criminally investigate or prosecute any alcohol or drug abuse patient.[facility] HospitalIn the event this information is protected by the Federal Confidentiality of Alcohol and Drug Abuse Patient Records regulations: The Federal rules restrict any use of the information to criminally investigate or prosecute any alcohol or drug abuse patient.[facility] HospitalIn the event this information is protected by the Federal Confidentiality of Alcohol and Drug Abuse Patient Records regulations: The Federal rules restrict any use of the information to criminally investigate or prosecute any alcohol or drug abuse patient.[facility] HospitalIn the event this information is protected by the Federal Confidentiality of Alcohol and Drug Abuse Patient Records regulations: The Federal rules restrict any use of the information to criminally investigate or prosecute any alcohol or drug abuse patient.[facility] HospitalIn the event this information is protected by the Federal Confidentiality of Alcohol and Drug Abuse Patient Records regulations: The Federal rules restrict any use of the information to criminally investigate or prosecute any alcohol or drug abuse patient.[facility] HospitalIn the event this information is protected by the Federal Confidentiality of Alcohol and Drug Abuse Patient Records regulations: The Federal rules restrict any use of the information to criminally investigate or prosecute any alcohol or drug abuse patient.[facility] HospitalIn the event this information is protected by the Federal Confidentiality of Alcohol and Drug Abuse Patient Records regulations: The Federal rules restrict any use of the information to criminally investigate or prosecute any alcohol or drug abuse patient.[facility] HospitalIn the event this information is protected by the Federal Confidentiality of Alcohol and Drug Abuse Patient Records regulations: The Federal rules restrict any use of the information to criminally investigate or prosecute any alcohol or drug abuse patient.[facility] HospitalIn the event this information is protected by the Federal Confidentiality of Alcohol and Drug Abuse Patient Records regulations: The Federal rules restrict any use of the information to criminally investigate or prosecute any alcohol or drug abuse patient.[facility] HospitalIn the event this information is protected by the Federal Confidentiality of Alcohol and Drug Abuse Patient Records regulations: The Federal rules restrict any use of the information to criminally investigate or prosecute any alcohol or drug abuse patient.[facility] HospitalIn the event this information is protected by the Federal Confidentiality of Alcohol and Drug Abuse Patient Records regulations: The Federal rules restrict any use of the information to criminally investigate or prosecute any alcohol or drug abuse patient.[facility] HospitalIn the event this information is protected by the Federal Confidentiality of Alcohol and Drug Abuse Patient Records regulations: The Federal rules restrict any use of the information to criminally investigate or prosecute any alcohol or drug abuse patient.[facility] HospitalIn the event this information is protected by the Federal Confidentiality of Alcohol and Drug Abuse Patient Records regulations: The Federal rules restrict any use of the information to criminally investigate or prosecute any alcohol or drug abuse patient.[facility] HospitalIn the event this information is protected by the Federal Confidentiality of Alcohol and Drug Abuse Patient Records regulations: The Federal rules restrict any use of the information to criminally investigate or prosecute any alcohol or drug abuse patient.[facility] HospitalIn the event this information is protected by the Federal Confidentiality of Alcohol and Drug Abuse Patient Records regulations: The Federal rules restrict any use of the information to criminally investigate or prosecute any alcohol or drug abuse patient.[facility] HospitalIn the event this information is protected by the Federal Confidentiality of Alcohol and Drug Abuse Patient Records regulations: The Federal rules restrict any use of the information to criminally investigate or prosecute any alcohol or drug abuse patient.[facility] HospitalIn the event this information is protected by the Federal Confidentiality of Alcohol and Drug Abuse Patient Records regulations: The Federal rules restrict any use of the information to criminally investigate or prosecute any alcohol or drug abuse patient.[facility] HospitalIn the event this information is protected by the Federal Confidentiality of Alcohol and Drug Abuse Patient Records regulations: The Federal rules restrict any use of the information to criminally investigate or prosecute any alcohol or drug abuse patient.[facility] HospitalIn the event this information is protected by the Federal Confidentiality of Alcohol and Drug Abuse Patient Records regulations: The Federal rules restrict any use of the information to criminally investigate or prosecute any alcohol or drug abuse patient.[facility] HospitalIn the event this information is protected by the Federal Confidentiality of Alcohol and Drug Abuse Patient Records regulations: The Federal rules restrict any use of the information to criminally investigate or prosecute any alcohol or drug abuse patient.[facility] HospitalIn the event this information is protected by the Federal Confidentiality of Alcohol and Drug Abuse Patient Records regulations: The Federal rules restrict any use of the information to criminally investigate or prosecute any alcohol or drug abuse patient.[facility] HospitalIn the event this information is protected by the Federal Confidentiality of Alcohol and Drug Abuse Patient Records regulations: The Federal rules restrict any use of the information to criminally investigate or prosecute any alcohol or drug abuse patient.[facility] HospitalIn the event this information is protected by the Federal Confidentiality of Alcohol and Drug Abuse Patient Records regulations: The Federal rules restrict any use of the information to criminally investigate or prosecute any alcohol or drug abuse patient.[facility] HospitalIn the event this information is protected by the Federal Confidentiality of Alcohol and Drug Abuse Patient Records regulations: The Federal rules restrict any use of the information to criminally investigate or prosecute any alcohol or drug abuse patient.[facility] HospitalIn the event this information is protected by the Federal Confidentiality of Alcohol and Drug Abuse Patient Records regulations: The Federal rules restrict any use of the information to criminally investigate or prosecute any alcohol or drug abuse patient.[facility] Reason for Visit (unrecogniz ed section and content) Reason Comments Orders Mammogram Reason Onset Date Comments Refill Request 05/10/2021 Reason Comments 8 1/2 months post visit OA bilateral kne es Established Patient Reason Comments 1 week post visit with BP chondromalcia bilateral knees Wants injections Follow Up Reason Comments Radiology US Specialty Diagnoses / Procedures Referred By Contac t Referred To Contact [facility] Diagnoses Abnormal mammogram Procedures US BREAST LTD RT US BREAST UNI REAL TIME WITH IMAGE LIMITED Kiara Pedraza APRN.[employer] [address] [place] [address] [facility] [id number] [place] [address] Referral ID Status Reason Start Date Expiration Date V isits Requested Visits Authorized [id number] Closed Auto-Generate d Referral 05/06/2021 06/05/2022 1 1 Reason Comments Radiology Mammogram Specialty Diagnoses / Procedures Referred By Contac t Referred To Contact [facility] Diagnoses Abnormal mammogram Procedures DOMINIK DIAGNOSTIC RT DIAGNOSTIC MAMMOGRAPHY COMPUTER-AIDED DETCJ Kiara Irving CERAMIC ENGINEER.[employer] CLE[employer] [address] [place] [address] [facility] [id number] [place] [address] Referral ID Status Reason Start Date Expiration Date V isits Requested Visits Authorized [id number] Closed Auto-Generate d Referral 05/06/2021 06/05/2022 1 1 Reason Comments Consult abnormal mammogram, right breast Reason Onset Date Comments Refill Request 06/29/2021 Reason Comments Breast Problem Reason Comments Schedule Biopsy US guided right cora st biopsy at [facility] Reason Onset Date Comments Refill Request 08/01/2021 Reason Comments 13 weeks post OV chondromala vilma bilateral patella with injections given, wants injections Established Patient Reason Onset Date Comments Refill Request 10/06/2021 Reason Onset Date Comments Refill Request 11/28/2021 Reason Onset Date Comments Refill Request 01/05/2022 Reason Onset Date Comments Refill Request 02/13/2022 Reason Comments Follow Up Reason Onset Date Comments Refill Request 06/30/2022 Reason Comments Refill Request Reason Onset Date Comments Refill Request 10/03/2022 Reason Comments Yearly Exam Reason Comments F/U 3 Month Reason Comments Consult Specialty Diagnoses / Procedures Referred By Contac t Referred To Contact Rheumatology Diagnoses Diffuse pain Chronic bilateral low back pain without sciatica Procedures CONSULT TO RHEUM/IMMUN DISEASE OFFICE/OUTPATIENT [facility] 60-74 MINUTES Tico Root, CERAMIC ENGINEER.[employer]NACE MANAGER [address] [place] [address] Referral ID Status Reason Start Date Expiration Date V isits Requested Visits Authorized [id number] Closed PCP Requested Referral 10/31/2022 10/31/2023 1 1 Reason Onset Date Comments Refill Request 05/13/2023 Reason Onset Date Comments Refill Request 06/17/2023 Reason Comments STD Screening Reason Comments Pain (Shoulder Pain) Left shoulder, LROM , no know injury, feels out of place x 2 weeks Reason Comments Rosacea Specialty Diagnoses / Procedures Referred By Contac t Referred To Contact Dermatology Diagnoses Rosacea Procedures CONSULT TO DERMATOLOGY OFFICE/OUTPATIENT [facility] MDM 60 MINUTES Kae Lennon PA-C [address] [address] Referral ID Status Reason Start Date Expiration Date V isits Requested Visits Authorized [id number] Closed PCP Requested Referral 03/26/2023 03/25/2024 1 1 Reason Comments New Pain Specialty Diagnoses / Procedures Referred By Contac t Referred To Contact Orthopedics / [facility] Diagnoses Acute pain of left shoulder Procedures CONSULT TO ORTHOPAEDICS OFFICE/OUTPATIENT [facility] MDM 60 MINUTES Chelly Cam PA-C [address] [place] [address] Rosie Ratliff PA-C [address] [place] [address] Referral ID Status Reason Start Date Expiration Date V isits Requested Visits Authorized [id number] Closed PCP Requested Referral OON/Self Pay Override 06/26/2023 06/25/2024 1 1 Reason Comments Eye Problem Right eye swollen an d red x 2 days Reason Comments New Patient Specialty Diagnoses / Procedures Referred By Contac t Referred To Contact [facility] [place] Diagnoses Diffuse pain Fibromyalgia Procedures [facility]SULT TO [facility] OFFICE/OUTPATIENT [facility] 60 MINUTES Kae Lennon PA-C [address] [place] [id number] [address] Referral ID Status Reason Start Date Expiration Date V isits Requested Visits Authorized [id number] Closed PCP Requested Referral 09/28/2023 02/09/2024 1 1 Reason Comments Established Patient Reason Comments New Patient Specialty Diagnoses / Procedures Referred By Contac t Referred To Contact Neurology Diagnoses POTS (postural orthostatic tachycardia syndrome) Procedures CONSULT TO NEUROLOGY OFFICE/OUTPATIENT [facility] 60 MINUTES Ciera King DO [facility] [place] [address] Referral ID Status Reason Start Date Expiration Date V isits Requested Visits Authorized [id number] Closed PCP Requested Referral 10/22/2023 10/21/2024 1 1 Reason Comments Abdominal Pain L lower abdominal Reason Comments New Patient Specialty Diagnoses / Procedures Referred By Contac t Referred To Contact General Surgery Diagnoses Special screening for malignant neoplasms, colon Procedures CONSULT TO GENERAL SURGERY OFFICE/OUTPATIENT NEW [facility]IGH [facility]DM 60 MINUTES Tico Root, CERAMIC ENGINEER.[employer]ATCH AND FURNACE MANAGER [address] [place] [address] Referral ID Status Reason Start Date Expiration Date V isits Requested Visits Authorized [id number] Closed PCP Requested Referral 12/03/2023 12/02/2024 1 1 Reason Comments Results Specialty Diagnoses / Procedures Referred By Contac t Referred To Contact CT IMAGING Diagnoses Left lower quadrant abdominal pain Periumbilical pain Periumbilical hernia Procedures CT ABD/PEL WO IVCON CT ABD & PELVIS W/O CONTRAST Tico Root, CERAMIC ENGINEER.BATCH AND FURNACE MANAGER [address] [place] [address] [place] [address] Referral ID Status Reason Start Date Expiration Date V isits Requested Visits Authorized [id number] Closed Auto-Generate d Referral 12/04/2023 01/18/2024 2 [address] Specialty Diagnoses / Procedures Referred By Contac t Referred To Contact CT IMAGING Diagnoses Left lower quadrant abdominal pain Periumbilical pain Periumbilical hernia Procedures CT ABD/PEL WO IVCON CT ABD & PELVIS W/O CONTRAST RootTico elaine, CERAMIC ENGINEER.[facility] [address] [place] [address] [place] [address] Reason Onset Date Comments Refill Request 12/27/2023 Reason Comments Sore Throat X1 day Specialty Diagnoses / Procedures Referred By Contac t Referred To Contact Diagnoses Other specified hearing loss, unspecified ear Procedures HEARING TEST/AUDIOGRAM COMPRE AUDIOMETRY THRESHOLD Merlene Hoffmann PA-C [address] [place] [address] [facility] [address] [place] [address] Referral ID Status Reason Start Date Expiration Date V isits Requested Visits Authorized [id number] Closed Auto-Generate d Referral 11/26/2023 11/26/2024 1 1 Reason Comments Initial Consult Medical Weight Management Specialty Diagnoses / Procedures Referred By Contac t Referred To Contact Endocrinology Diagnoses Class 3 severe obesity due to excess calories without serious comorbidity with body mass index (BMI) of 40.0 to 44.9 in adult (HCC) Procedures CONSULT TO ENDOCRINOLOGY OFFICE/OUTPATIENT [facility] 60 MINUTES Kae Lennon PA-C [address] [place] [address] Referral ID Status Reason Start Date Expiration Date V isits Requested Visits Authorized [id number] Closed PCP Requested Referral 03/26/2023 03/25/2024 1 1 Reason Comments New Patient Tinnitus and dizzine ss Specialty Diagnoses / Procedures Referred By Contac t Referred To Contact Ent - Otolaryngology Diagnoses Tinnitus, bilateral Dizziness Sensation of fullness in both ears Procedures CONSULT TO ENT OFFICE/OUTPATIENT [facility] 60 MINUTES Igor Blari, CERAMIC ENGINEER.CHROME CLEANER [address] [place] [address] Referral ID Status Reason Start Date Expiration Date V isits Requested Visits Authorized [id number] Closed PCP Requested Referral 11/26/2023 11/25/2024 1 1 Reason Comments Consult Reason Comments Appointment Reason Comments Medical Nutrition Therapy Weight Managem ent Specialty Diagnoses / Procedures Referred By Contac t Referred To Contact Diagnoses Class 3 severe obesity due to excess calories without serious comorbidity with body mass index (BMI) of 40.0 to 44.9 in adult (HCC) Procedures ENDOCRINOLOGY DIETITIAN VISIT (MNT) MEDICAL NUTRITION ASSMT&IVNTJ INDIV EACH 15 [place] MEDICAL NUTRITION ASSMT&IVNTJ INDIV EACH 15 [place] MEDICAL NUTRITION ASSMT&IVNTJ INDIV EACH 15 [place] MEDICAL NUTRITION ASSMT&IVNTJ INDIV EACH [address] [place] [address] [place] [address] Phone: tel: fax: Referral ID Status Reason Start Date Expiration Date V isits Requested Visits Authorized [id number] Closed PCP Requested Referral 01/06/2024 01/05/2025 1 1 Reason Onset Date Comments Refill Request 05/01/2024 Reason Comments Established Patient Knee Pain Established Patient 5 months post visit OA bilateral knees with injections given Knee Pain 5 months post visit OA bilateral knees with injections given Reason Comments PT Eval Specialty Diagnoses / Procedures Referred By Contac t Referred To Contact [facility] Diagnoses Degeneration of intervertebral disc of lumbar region with lower extremity pain Procedures CONSULT TO PHYSICAL THERAPY PHYSICAL THERAPY EVALUATION HIGH COMPLEX 45 MINS Desirae Zamudio PA-C [address] [place] [address] Phone: tel: fax: [facility] [address] [place] [address] Referral ID Status Reason Start Date Expiration Date V isits Requested Visits Authorized [id number] Closed Auto-Generate d Referral 02/10/2024 02/08/2025 1 1 Reason Comments Orders Reason Comments New Patient Low Back Pain Left Hip Pain Leg Pain Upper leg Reason Comments New Patient Evaluation Neck Pain Pain (Shoulder Pain) Right Back Pain (Upper Back) Headaches Reason Comments Follow Up Follow Up 9 weeks post visit O A bilateral knees - Here for injections Care Teams (unrecognized sec tion and content) Assistant District Attorney Relationship Specialty Start Date End Date Errol Luu MD [address] [place] [address] PCP - General Internal Medicine 01/24/16 Assistant District Attorney Relationship Specialty Start Date End Date Errol Luu MD [address] [place] [address] PCP - General Internal Medicine 01/24/16 Assistant District Attorney Relationship Specialty Start Date End Date Erorl Luu MD [address] [place] [address] PCP - General Internal Medicine 01/24/16 Assistant District Attorney Relationship Specialty Start Date End Date Errol Luu MD [address] [place] [address] PCP - General Internal Medicine 01/24/16 Assistant District Attorney Relationship Specialty Start Date End Date Errol Luu MD [address] [place] [address] PCP - General Internal Medicine 01/24/16 Assistant District Attorney Relationship Specialty Start Date End Date Errol Luu MD [address] [place] [address] PCP - General Internal Medicine 01/24/16 Assistant District Attorney Relationship Specialty Start Date End Date Errol Luu MD [address] [place] [address] PCP - General Internal Medicine 01/24/16 Assistant District Attorney Relationship Specialty Start Date End Date Errol Luu MD [address] [place] [address] PCP - General Internal Medicine 01/24/16 Assistant District Attorney Relationship Specialty Start Date End Date Errol Luu MD [address] [place] [address] PCP - General Internal Medicine 01/24/16 Assistant District Attorney Relationship Specialty Start Date End Date Errol Luu MD [address] [place] [address] PCP - General Internal Medicine 01/24/16 Assistant District Attorney Relationship Specialty Start Date End Date Errol Luu MD [address] [place] [address] PCP - General Internal Medicine 01/24/16 Assistant District Attorney Relationship Specialty Start Date End Date Errol Luu MD [address] [place] [address] PCP - General Internal Medicine 01/24/16 Assistant District Attorney Relationship Specialty Start Date End Date Errol Luu MD [address] [place] [address] PCP - General Internal Medicine 01/24/16 Assistant District Attorney Relationship Specialty Start Date End Date Errol Luu MD [address] [place] [address] PCP - General Internal Medicine 01/24/16 Assistant District Attorney Relationship Specialty Start Date End Date Errol Luu MD [address] [place] [address] PCP - General Internal Medicine 01/24/16 Assistant District Attorney Relationship Specialty Start Date End Date Errol Luu MD [address] [place] [address] PCP - General Internal Medicine 01/24/16 Assistant District Attorney Relationship Specialty Start Date End Date Errol Luu MD [address] [place] [address] PCP - General Internal Medicine 01/24/16 Assistant District Attorney Relationship Specialty Start Date End Date Errol Luu MD [address] [place] [address] PCP - General Internal Medicine 01/24/16 Assistant District Attorney Relationship Specialty Start Date End Date Errol Luu MD [address] [place] [address] PCP - General Internal Medicine 01/24/16 Assistant District Attorney Relationship Specialty Start Date End Date Errol Luu MD [address] [place] [address] PCP - General Internal Medicine 01/24/16 Assistant District Attorney Relationship Specialty Start Date End Date Errol Luu MD [address] [place] [address] PCP - General Internal Medicine 01/24/16 Assistant District Attorney Relationship Specialty Start Date End Date Errol Luu MD [address] [facility] [place] [address] PCP - General Internal Medicine 01/24/16 Assistant District Attorney Relationship Specialty Start Date End Date Errol Luu MD [address] [facility] [place] [address] PCP - General Internal Medicine 01/24/16 Assistant District Attorney Relationship Specialty Start Date End Date Errol Luu MD [address] [facility] [place] [address] PCP - General Internal Medicine 01/24/16 Assistant District Attorney Relationship Specialty Start Date End Date Errol Luu MD [address] [facility] [place] [address] PCP - General Internal Medicine 01/24/16 Assistant District Attorney Relationship Specialty Start Date End Date Errol Luu MD [address] [place] [address] PCP - General Internal Medicine 01/24/16 Assistant District Attorney Relationship Specialty Start Date End Date Errol Luu MD [address] [place] [address] PCP - General Internal Medicine 01/24/16 Assistant District Attorney Relationship Specialty Start Date End Date Errol Luu MD [address] [place] [address] PCP - General Internal Medicine 01/24/16 Assistant District Attorney Relationship Specialty Start Date End Date Errol Luu MD [address] [facility] [place] [address] PCP - General Internal Medicine 01/24/16 Assistant District Attorney Relationship Specialty Start Date End Date Errol Luu MD [address] [place] [address] PCP - General Internal Medicine 01/24/16 Assistant District Attorney Relationship Specialty Start Date End Date Errol Luu MD [address] [place] [address] PCP - General Internal Medicine 01/24/16 Assistant District Attorney Relationship Specialty Start Date End Date Errol Luu MD [address] [place] [address] PCP - General Internal Medicine 01/24/16 Assistant District Attorney Relationship Specialty Start Date End Date Errol Luu MD [address] [place] [address] PCP - General Internal Medicine 01/24/16 Assistant District Attorney Relationship Specialty Start Date End Date Errol Luu MD [address] [place] [address] PCP - General Internal Medicine 01/24/16 Assistant District Attorney Relationship Specialty Start Date End Date Errol Luu MD [address] [place] [address] PCP - General Internal Medicine 01/24/16 Assistant District Attorney Relationship Specialty Start Date End Date Errol Luu MD [address] [place] [address] PCP - General Internal Medicine 01/24/16 Assistant District Attorney Relationship Specialty Start Date End Date Errol Luu MD [address] [place] [address] PCP - General Internal Medicine 01/24/16 Assistant District Attorney Relationship Specialty Start Date End Date Errol Luu MD [address] [place] [address] PCP - General Internal Medicine 01/24/16 Assistant District Attorney Relationship Specialty Start Date End Date Errol Luu MD [address] [place] [address] PCP - General Internal Medicine 01/24/16 Assistant District Attorney Relationship Specialty Start Date End Date Errol Luu MD [address] [place] [address] PCP - General Internal Medicine 01/24/16 Assistant District Attorney Relationship Specialty Start Date End Date Errol Luu MD [address] [place] [address] PCP - General Internal Medicine 01/24/16 Assistant District Attorney Relationship Specialty Start Date End Date Errol Luu MD [address] [place] [address] PCP - General Internal Medicine 01/24/16 Assistant District Attorney Relationship Specialty Start Date End Date Errol Luu MD [address] [place] [address] PCP - General Internal Medicine 01/24/16 Assistant District Attorney Relationship Specialty Start Date End Date Errol Luu MD [address] [place] [address] PCP - General Internal Medicine 01/24/16 Assistant District Attorney Relationship Specialty Start Date End Date Errol Luu MD [address] [place] [address] PCP - General Internal Medicine 01/24/16 Assistant District Attorney Relationship Specialty Start Date End Date Errol Luu MD [address] [place] [address] PCP - General Internal Medicine 01/24/16 Assistant District Attorney Relationship Specialty Start Date End Date Errol Luu MD [address] [place] [address] PCP - General Internal Medicine 01/24/16 Assistant District Attorney Relationship Specialty Start Date End Date Errol Luu MD [address] [place] [address] PCP - General Internal Medicine 01/24/16 Assistant District Attorney Relationship Specialty Start Date End Date Errol Luu MD [address] [place] [address] PCP - General Internal Medicine 01/24/16 Assistant District Attorney Relationship Specialty Start Date End Date Errol Luu MD [address] [place] [address] PCP - General Internal Medicine 01/24/16 Assistant District Attorney Relationship Specialty Start Date End Date Errol Luu MD [address] [place] [address] PCP - General Internal Medicine 01/24/16 Lyndon Ladd PA-C [address] [place] [address] [employer] Install[employer] Family Medicine 01/17/24 Kiara Pedraza APRN.[employer]OME CLEANER [address] [place] [address] [employer] Install[employer] Internal Medicine 01/17/24 Kate Rivera PA-C [address] [place] [address] [employer]able [employer] Installer Family [facility] 01/17/24 Assistant District Attorney Relationship Specialty Start Date End Date Errol Luu MD [address] [place] [address] PCP - General Internal Medicine 01/24/16 Lyndon Ladd PA-C [address] [place], [place] [address] [phone] Movable Bulkhead Installer Family [facility] 01/17/24 Kiara Pedraza APRN.CHROME CLEANER [address] [place] [address] Movable [employer]khead Installer Internal Medicine 01/17/24 Kate Rivera PA-C [address] [place] [address] [facility] 01/17/[facility] Assistant District Attorney Relationship Specialty Start Date End Date Errol Luu MD [address] [place] [address] PCP - General Internal Medicine 01/24/16 Lyndon Ladd PA-C [address] [place] [address] Movable Bulkhead Installer Family [facility] 01/17/24 Kiara Pedraza APRN.CHROME CLEANER [address] [place] [address] Movable [employer]khead Installer Internal Medicine 01/17/24 Kate Rivera PA-C [address] [place] [address] Movable [employer]khead Installer Family [facility] 01/17/24 Assistant District Attorney Relationship Specialty Start Date End Date Errol Luu MD [address] [place] [address] PCP - General Internal Medicine 01/24/16 Lyndon Ladd PA-C [address] [place] [address] [id number] Mov[employer] Bulkhead Installer Family Medicine 01/17/24 Kiara Pedraza APRN.CHROME CLEANER [address] [place] [address] [employer]able [employer]khead Installer Internal Medicine 01/17/24 Kate Rivera PA-C [address] [place] [address] [employer]able [employer] Installer Family Medicine 01/17/24 Assistant District Attorney Relationship Specialty Start Date End Date Errol Luu MD [address] [place] [address] PCP - General Internal Medicine 01/24/16 Lyndon Ladd PA-C [address] [place] [address] [employer] Install[employer] Family Medicine 01/17/24 Kiara Pedraza APRN.CHROME CLEANER [address] [place] [address] [employer] Installer Internal Medicine 01/17/24 Kate Rivera PA-C [address] [place] [address] [employer] Install[employer] Family Medicine 01/17/24 Assistant District Attorney Relationship Specialty Start Date End Date Errol Luu MD [address] [place] [address] PCP - General Internal Medicine 01/24/16 Lyndon Ladd PA-C [address] [place] [address] [employer] Install[employer] Family Medicine 01/17/24 Kiara Pedraza, CERAMIC ENGINEER.CHROME CLEANER [address] [place] [address] [employer] Installer Internal Medicine 01/17/24 Kate Rivera PA-C [address] [place] [address] [employer] Install[employer] Family Medicine 01/17/24 Assistant District Attorney Relationship Specialty Start Date End Date Errol Luu MD [address] [place] [address] PCP - General Internal Medicine 01/24/16 Lyndon Ladd PA-C [address] [place] [address] [employer] Installer Family Medicine 01/17/24 Kiara Pedraza, CERAMIC ENGINEER.CHROME CLEANER [address] [place] [address] Movable Bulkhead Installer Internal Medicine 01/17/24 Kate Rivera PA-C [address] [place] [address] [employer]able [employer] Install[employer] Family Medicine 01/17/24 Assistant District Attorney Relationship Specialty Start Date End Date Errol Luu MD [address] [place] [address] PCP - General Internal Medicine 01/24/16 Lyndon Ladd PA-C [address] [place] [address] Mov[employer] Installer Family Medicine 01/17/24 Kiara Pedraza APRN.CHROME CLEANER [address] [place] [address] Movable Bulkhead Installer Internal Medicine 01/17/24 Kate Rivera PA-C [address] [place] [address] [employer]able [employer] Installer Family Medicine 01/17/24 Assistant District Attorney Relationship Specialty Start Date End Date Errol Luu MD [address] [place] [address] PCP - General Internal Medicine 01/24/16 Lyndon Ladd PA-C [address] [place] [address] Mov[employer] Installer Family Medicine 01/17/24 Kiara Pedraza APRN.CHROME CLEANER [address] [place] [address] [employer]able [employer] Installer Internal Medicine 01/17/24 Kate Rivear PA-C [address] [place] [address] [employer] Install[employer] Family Medicine 01/17/24 Assistant District Attorney Relationship Specialty Start Date End Date Errol Luu MD [address] [place] [address] PCP - General Internal Medicine 01/24/16 Lyndon Ladd PA-C [address] [place] [address] [employer] Installer Family Medicine 01/17/24 Kiara Pedraza APRN.CHROME CLEANER [address] [place] [address] Movable Bul[employer] Installer Internal Medicine 01/17/24 Kate Rivera PA-C [address] [place] [address] Movable Bulkhead Installer Family [facility] 01/17/24 Assistant District Attorney Relationship Specialty Start Date End Date Errol Luu MD [address] [place] [address] PCP - General Internal Medicine 01/24/16 Lyndon Ladd PA-C [address] [place] [address] [facility] Family Medicine 01/17/24 Kiara Pedraza APRN.CHROME CLEANER [address] [place] [address] [employer] Installer Internal Medicine 01/17/24 Kate Rivera PA-C [address] [place] [address] [employer] Install[employer] Family Medicine 01/17/24 Assistant District Attorney Relationship Specialty Start Date End Date Errol Luu MD [address] [place] [address] PCP - General Internal Medicine 01/24/16 Lyndon Ladd PA-C [address] [place] [address] [employer]able [employer] Installer Family Medicine 01/17/24 Kiara Pedraza APRN.CHROME CLEANER [address] [place] [address] Movable [employer] Installer Internal Medicine 01/17/24 Kate Rivera PA-C [address] [place] [address] [employer] Install[employer] Family Medicine 01/17/24 Assistant District Attorney Relationship Specialty Start Date End Date Errol Luu MD [address] [place] [address] PCP - General Internal Medicine 01/24/16 Lyndon Ladd PA-C [address] [place] [address] [employer] Installer Family Medicine 01/17/24 Kiara Pedraza APRN.CHROME CLEANER [address] [place] [address] [employer]able [employer] Installer Internal Medicine 01/17/24 Kate Rivera PA-C [address] [place] [address] Movable Bulkhead Installer Family [facility] 01/17/24 Assistant District Attorney Relationship Specialty Start Date End Date Errol Luu MD [address] [place] [address] PCP - General Internal Medicine 01/24/16 Lyndon Ladd PA-C [address] [place] [address] [employer] Install[employer] Family Medicine 01/17/24 05/01/24 Kiara Pedraza APRN.CHROME CLEANER [address] [facility] [place] [address] Movable Bulkhead Installer Internal Medicine 01/17/24 Kate Rivera PA-C [address] [place] [address] [facility] 01/17/24 05/01/24 Assistant District Attorney Relationship Specialty Start Date End Date Errol Luu MD [address] [facility] [address] PCP - General Internal Medicine 01/24/16 Kiara Pedraza APRN.CHROME CLEANER [address] [place] [address] [facility] Internal Medicine 01/17/24 Assistant District Attorney Relationship Specialty Start Date End Date Errol Luu MD [address] [facility] [place] [address] PCP - General Internal Medicine 01/24/16 Kiara Pedraza APRN.CHROME CLEANER [address] [place] [address] [facility] Internal Medicine 01/17/24 Assistant District Attorney Relationship Specialty Start Date End Date Errol Luu MD [address] [facility] [address] PCP - General Internal Medicine 01/24/16 Kiara Pedraza APRN.CHROME CLEANER [address] [place] [address] [employer] Installer Internal Medicine 01/17/24 Assistant District Attorney Relationship Specialty Start Date End Date Errol Luu MD [address] [place] [address] PCP - General Internal Medicine 01/24/16 Kiara Pedraza APRN.CHROME CLEANER [address] [place] [address] [employer] Install[employer] Internal Medicine 01/17/24 Assistant District Attorney Relationship Specialty Start Date End Date Errol Luu MD [address] [place] [address] PCP - General Internal Medicine 01/24/16 Kiara Pedraza APRN.CHROME CLEANER [address] [place] [address] [employer] Install[employer] Internal Medicine 01/17/24 Assistant District Attorney Relationship Specialty Start Date End Date Errol Luu MD [address] [place] [address] PCP - General Internal Medicine 01/24/16 Kiara Pedraza APRN.CHROME CLEANER [address] [place] [address] [employer] Install[employer] Internal Medicine 01/17/24 Assistant District Attorney Relationship Specialty Start Date End Date Errol Luu MD [address] [place] [address] PCP - General Internal Medicine 01/24/16 Kiara Pedraza APRN.CHROME CLEANER [address] [place] [address] [employer] Installer Internal Medicine 01/17/24 Assistant District Attorney Relationship Specialty Start Date End Date Errol Luu MD [address] [place] [address] PCP - General Internal Medicine 01/24/16 Kiara Pedraza APRN.CHROME CLEANER [address] [facility] [place] [address] Movable [employer]khead Installer Internal Medicine 01/17/24 Assistant District Attorney Relationship Specialty Start Date End Date Errol Luu MD [address] [place] [address] PCP - General Internal Medicine 01/24/16 Kiara Pedraza APRN.CHROME CLEANER [address] [place] [address] [employer]able [employer] Installer Internal Medicine 01/17/24 Assistant District Attorney Relationship Specialty Start Date End Date Errol Luu MD [address] [place] [address] PCP - General Internal Medicine 01/24/16 Kiara Pedraza APRN.CHROME CLEANER [address] [place] [address] [employer]able [employer] Installer Internal Medicine 01/17/24 Assistant District Attorney Relationship Specialty Start Date End Date Errol Luu MD [address] [place] [address] PCP - General Internal Medicine 01/24/16 Kiara Pedraza APRN.CHROME CLEANER [address] [place] [address] [employer]able [employer] Installer Internal Medicine 01/17/24 Assistant District Attorney Relationship Specialty Start Date End Date Errol Luu MD [address] [place] [address] PCP - General Internal Medicine 01/24/16 Kiara Pedraza APRN.CHROME CLEANER [address] [place] [address] [employer] Internal Medicine 01/17/24 Team Status: Active Member Role Status Dates Out of [facility] Physician MD Primary Care Provider Activ e Team Status: Active Member Role Status Dates Out of [facility] Physician MD Primary Care Provider Activ e Start: July 29, 2024 [employer] Provider Attending Provider Active Start : July 29, 2024 INFORMATION SOURCE (unrecogn ized section and content) DATE CREATED AUTHOR 02/21/2024 [facility] DATE CREATED AUTHOR AUTHOR'S ORGANIZ ATION 04/03/2024 [facility] DATE CREATED AUTHOR AUTHOR'S ORGANIZ ATION 07/11/[address] [facility] FOR RECORDS PERTAINING TO PATIENTS WHO ARE OR HAVE BEEN ENROLLED IN A CHEMICAL DEPENDENCY/SUBSTANCEABUSE PROGRAM, SOME INFORMATION MAY BE OMITTED. This clinical summary was aggregated from multiple sources. Caution should be exercised in using it in the provision of clinical care. This summary normalizes information from multiple sources, and as a consequence, information in this document may materially change the coding, format and clinical context of patient data. In addition, data may be omitted in some cases. CLINICAL DECISIONS SHOULD BE BASED ON THE PRIMARY CLINICAL RECORDS. [facility]. provides no warranty or guarantee of the accuracy or completeness of information in this document.
--- NOTE | 2024-07-30 20:47 | ED.VIS.LOWEX ---
HPI History of Present Illness Chief Complaint: Lower Extremity Injury Informant: patient and spouse/S.O. Narrative Narrative: Presents for evaluation around her left great toe. We seen down at [place] walking around felt discomfort. They are driving back yesterday stop by an urgent care out of town. There is more redness around the toes. They were told to monitor. Redness is improving. She has pain when she palpates this. No fever or chills. Also days swelling to her foot. No chest pain no shortness of breath chronic swelling to left lower extremity has had DVT studies in the past that were negative. Prior similar symptoms: Yes PFSH PFS Medical History Osteoarthritis OCD (obsessive compulsive disorder) Schizo-affective psychosis Fibromyalgia Autism Back pain ADHD Depression Anxiety Home Medications ?Medication ?Instructions ?Recorded ?Last Taken ?Type bupropion HCl 100 mg tablet 100 mg PO DAILY 07/30/24 Unknown History cyclobenzaprine 10 mg tablet 10 mg PO QHS PRN PRN muscle spasm 07/30/24 Unknown History duloxetine 20 mg capsule,delayed 40 mg PO BID 07/30/24 Unknown History release lorazepam 0.5 mg tablet 0.5 mg PO QHS PRN PRN anxiety 07/30/24 Unknown History norethindrone (contraceptive) 0.35 0.35 mg PO DAILY 07/30/24 Unknown History mg tablet Allergy/AdvReac Type Severity Reaction Status Date / Time No Known Allergies Allergy Verified 07/30/24 19:15 Social History Smoking Status: Never smoker ROS ROS ED Constitutional Constitutional ED: Denies fever(s) Cardiovascular Cardiovascular: Denies chest pain Respiratory/Chest Respiratory/Chest: Denies cough Gastrointestinal Gastrointestinal: Denies diarrhea or vomiting Musculoskeletal Musculoskeletal: Reports other Details: Left great toe pain, left foot swelling. ; Denies none Integumentary Denies rash or wounds Neurologic Neurologic: Denies weakness EXAM Physical Exam Const Vital Signs: 07/30/24 19:14 07/30/24 20:59 Temperature 98.8 F 98.1 F Temperature Source Oral Pulse Rate 99 77 Respiratory Rate 16 16 Blood Pressure 167/109 H 122/78 H Blood Pressure Mean 128 92 Pulse Ox 100 99 Oxygen Delivery Method Room Air Positive well nourished and well developed General Appearance ED: well developed HEENT normocephalic and atraumatic Eyes General Eye ED: Yes normal appearance of both eyes Neck full ROM Resp normal respiratory effort and normal air movement Cardio regular rate and regular rhythm GI soft to palpation Extremity Extremity Narrative: Asymmetric swelling left leg compared to right however chronic per patient. New swelling to the dorsal foot. Great toe there is tenderness around the medial aspect great toe next to the nailbed there is no fluctuance no redness. Toenail seems to be ingrown however there is no drainage. Skin intact. Neuro oriented x3 Skin no rashes or lesions noted and no wounds MDM MDM MDM Narrative Medical decision making narrative: Interventions / MDM: Differential diagnosis: Left foot swelling, ingrown toenail left great toe Diagnosis considered but do not suspect: No clinical cellulitis or paronychia. No clinical compartment syndrome. My EKG interpretation: N/A Imaging independently reviewed and interpreted by myself: Left foot x-ray 3 views: No fracture noted. External documents reviewed: N/A Test considered but not ordered:N/A ED course: Patient ingrown toenails causing pain no signs of cellulitis or paronychia. Foot x-ray negative. She does have atraumatic chronic leg swelling however new foot swelling there is no calf tenderness on exam. Pulses are intact. X-ray from nursing protocol obtained negative on my evaluation. She reassured on findings. She chronic asymmetric swelling new swelling foot and on a car ride. No current DVT studies available in the ED. She has no chest pains or shortness of breath. I will order for outpatient DVT studies. She will be given follow-up with podiatry with her ingrown toenails. All questions were answered. Re-evaluation: stable Disposition discussed with patient/family/significant other: Patient and significant other Case discussed with consulting clinician: N/A This note was generated with [employer] dictation software. It may contain incorrect words, spelling, and punctuation that were not noted in checking the note before signing. Radiography Diagnostic Testing: Clinical Impression(s) from Imaging Studies Foot X-Ray 07/30/24 20:25 IMPRESSION: NO ACUTE FRACTURE OR DISLOCATION. Reading Location: [id number] Discharge Plan Triage Chief Complaint: Lower Extremity Injury ED Provider: Cosme Escalante Dx/Rx/DC Orders Clinical Impression: Swelling of left foot, Ingrowing toenail of left foot Instructions: ED Ingrown Toenail Home Tx, ED Lymphedema Prescriptions: No Action bupropion HCl 100 mg tablet 100 mg PO DAILY duloxetine 20 mg capsule,delayed release(DR/EC) 40 mg PO BID lorazepam 0.5 mg tablet 0.5 mg PO QHS PRN PRN (Reason: anxiety) norethindrone (contraceptive) 0.35 mg tablet 0.35 mg PO DAILY cyclobenzaprine 10 mg tablet 10 mg PO QHS PRN PRN (Reason: muscle spasm) Other Ambulatory Orders: Venous Duplex US, Unilateral (Stat) Facility: [facility] - Location: [facility] Ordered By: Dr. Cosme Escalante Primary Care Provider: Martha Mercer Referrals: Martha Mercer MD [Primary Care Provider] - Gianfranco Sarabia DPM [Med Staff - Active Staff] - 1 Week Activity Restrictions/Additional Instructions: Left foot x-ray negative. Return tomorrow to ultrasound your left lower leg as noted is available in the ED. Follow-up with podiatry with your ingrown toenails. No clinical signs of infection. Print Language: Yi Disposition Disposition: Home, Self Care Discharge Date/Time: 07/30/24 21:00
[2024-07-30 20:59] VITALS: BP 122/78; PULSE 77; RESP 16; TEMP 36.7; O2SAT 99
== END 2024-07-30 21:00 | disposition home or self-care (01) ==
PROVIDERS: Emergency Provider Emergency Medicine; PCP Internal Medicine; Visit Provider Emergency Medicine
DX: L60.0 Ingrowing nail (principal); F25.9 Schizoaffective disorder, unspecified; M79.89 Other specified soft tissue disorders; F42.9 Obsessive-compulsive disorder, unspecified; F84.0 Autistic disorder; F90.9 Attention-deficit hyperactivity disorder, unspecified type; F32.A Depression, unspecified; F41.9 Anxiety disorder, unspecified; M79.7 Fibromyalgia; Z79.899 Other long term (current) drug therapy
CPT/HCPCS: 73630; 99282

== ENCOUNTER 2024-08-10 08:50 | Observation (INO) | payer MEDICAID, SELFPAY ==
[2024-08-10] VITALS (7 sets, daily range): BP systolic 130–153; BP diastolic 61–96; PULSE 76–87; RESP 14–18; TEMP 36.6–37; O2SAT 96–100; BMI 46.3; BMI 45.6
--- NOTE | 2024-08-10 09:02 | EDS_ITS ---
HPI History of Present Illness Chief Complaint: Dizziness Narrative Narrative: 43-year-old female presents with day 3 of vertigo. She states she usually gets 2-3 episodes a year that only last for an hour. Usually it is accompanied by a headache but she denies any headache. No chest pain, shortness of breath, fever, chills, no nausea or vomiting, no other symptoms. She states that it is worse when she looks to the right. Additionally, she states that she has been worked up by neurology even with vestibular studies, and for POTS, but she states that they do not find anything wrong. She went to urgent care yesterday and they gave her meclizine. She states that she was improving yesterday, but rolled over in bed, and became dizzy again. She feels a spinning sensation and states it is difficult for her to ambulate. She denies any paresthesias or any improving or worsening factors. She last took meclizine this morning. [facility] Medical History Osteoarthritis OCD (obsessive compulsive disorder) Schizo-affective psychosis Fibromyalgia Autism Back pain ADHD Depression Anxiety Home Medications Medication Instructions Recorded Last Taken Type bupropion HCl 100 mg tablet 100 mg PO DAILY 07/30/24 U nknown History cyclobenzaprine 10 mg tablet 10 mg PO QHS PRN PRN musc le spasm 07/30/24 Unknown History duloxetine 20 mg capsule,delayed 40 mg PO BID 07/30/24 Unknown History release lorazepam 0.5 mg tablet 0.5 mg PO QHS PRN PRN anxiet y 07/30/24 Unknown History norethindrone (contraceptive) 0.35 0.35 mg PO DAILY Unknown History mg tablet Allergy/AdvReac Type Severity Reaction Status Date / Time No Known Allergies Allergy Verified 08/10/24 08:51 Social History Smoking Status: Never smoker ROS ROS ED ROS Narrative Review of systems positive for dizziness and vertigo symptoms. No fevers or c hills, no nausea or vomiting, no recent diarrhea. No chest pain or shortness of breath. No headache. May be worsened by looking the right and moving head to right. EXAM Physical Exam Narrative Exam Narrative: Afebrile. Vital signs noted. Nontoxic-appearing. Cardiovascular examination reveals a regular rate and rhythm. Lungs are clear to auscultation bilaterally. Abdomen is soft, nontender, without guarding or rebound. Positive bowel sounds. Neurological examination is nonfocal, nonlateralizing. PERRL, EOMI. No nystagmus. Neck soft and supple without meningismus. Able to stand from wheelchair and ambulate to cot. Normal nose to finger. Neurological exa mination shows her to be awake, alert, interactive, nonfocal, nonlateralizing. Const Vital Signs: 08/10/24 08:51 Temperature 98 F Temperature Source Temporal Pulse Rate 87 Respiratory Rate 14 Blood Pressure 153/90 H Blood Pressure Mean 111 Pulse Ox 98 Oxygen Delivery Method Room Air MDM MDM MDM Narrative Medical decision making narrative: Differential diagnosis includes but not limited to intravascular volume depletion versus electrolyte abnormality versus benign positional vertigo. Based on her history and physical, I have low suspicion for stroke. I discussed with her the utility of CT scanning, but do not feel it is indicated as she has a nonfocal examination. She has already taken her meclizine today so she will be given Valium 2.5 mg. I reviewed her EMR and problem list. History & Record Review Discussion w/independent historian: Patient Discharge Plan Triage Chief Complaint: Dizziness ED Provider: Nicolás Rondon Dx/Rx/DC Orders Prescriptions: No Action bupropion HCl 100 mg tablet 100 mg PO DAILY duloxetine 20 mg capsule,delayed release(DR/EC) 40 mg PO BID lorazepam 0.5 mg tablet 0.5 mg PO QHS PRN PRN (Reason: anxiety) norethindrone (contraceptive) 0.35 mg tablet 0.35 mg PO DAILY cyclobenzaprine 10 mg tablet 10 mg PO QHS PRN PRN (Reason: muscle spasm) Primary Care Provider: Martha Mercer Referrals: Martha Mercer MD [Primary Care Provider] - Print Language: Kinyarwanda
--- NOTE | 2024-08-10 09:02 | EX.ED.DYSGE1 ---
HPI History of Present Illness Chief Complaint: Dizziness Narrative Narrative: 43-year-old female presents with day 3 of vertigo. She states she usually gets 2-3 episodes a year that only last for an hour. Usually it is accompanied by a headache but she denies any headache. No chest pain, shortness of breath, fever, chills, no nausea or vomiting, no other symptoms. She states that it is worse when she looks to the right. Additionally, she states that she has been worked up by neurology even with vestibular studies, and for POTS, but she states that they do not find anything wrong. She went to urgent care yesterday and they gave her meclizine. She states that she was improving yesterday, but rolled over in bed, and became dizzy again. She feels a spinning sensation and states it is difficult for her to ambulate. She denies any paresthesias or any improving or worsening factors. She last took meclizine this morning. [facility] Medical History Osteoarthritis OCD (obsessive compulsive disorder) Schizo-affective psychosis Fibromyalgia Autism Back pain ADHD Depression Anxiety Home Medications Medication Instructions Recorded Last Taken Type bupropion HCl 100 mg tablet 100 mg PO DAILY 07/30/24 08/10/24 History cyclobenzaprine 10 mg tablet 10 mg PO QHS PRN PRN muscle spasm 07/30/24 Unknown History lorazepam 0.5 mg tablet 0.5 mg PO QHS PRN PRN anxiety 07/30/24 Unknown History norethindrone (contraceptive) 0.35 0.35 mg PO DAILY 07/30/24 08/10/24 History mg tablet duloxetine 60 mg capsule,delayed 60 mg PO BID 08/10/24 08/10/24 History release haloperidol 2 mg tablet 2 mg PO DAILY PRN agitation 08/10/24 Unknown History meclizine 25 mg tablet 25 mg PO Q6H PRN dizziness 08/10/24 08/10/24 History Allergy/AdvReac Type Severity Reaction Status Date / Time No Known Allergies Allergy Verified 08/10/24 08:51 Social History Smoking Status: Never smoker ROS ROS ED ROS Narrative Review of systems positive for dizziness and vertigo symptoms. No fevers or chills, no nausea or vomiting, no recent diarrhea. No chest pain or shortness of breath. No headache. May be worsened by looking the right and moving head to right. EXAM Physical Exam Narrative Exam Narrative: Afebrile. Vital signs noted. Nontoxic-appearing. Cardiovascular examination reveals a regular rate and rhythm. Lungs are clear to auscultation bilaterally. Abdomen is soft, nontender, without guarding or rebound. Positive bowel sounds. Neurological examination is nonfocal, nonlateralizing. PERRL, EOMI. No nystagmus. Neck soft and supple without meningismus. Able to stand from wheelchair and ambulate to cot. Normal nose to finger. Neurological examination shows her to be awake, alert, interactive, nonfocal, nonlateralizing. Const Vital Signs: 08/10/24 08:51 08/10/24 10:51 08/10/24 12:00 Temperature 98 F Temperature Source Temporal Pulse Rate 87 76 81 Respiratory Rate 14 18 18 Blood Pressure 153/90 H 132/66 H 140/78 H Blood Pressure Mean 111 88 98 Pulse Ox 98 99 100 Oxygen Delivery Method Room Air Room Air Room Air MDM MDM MDM Narrative Medical decision making narrative: Differential diagnosis includes but not limited to intravascular volume depletion versus electrolyte abnormality versus benign positional vertigo. Based on her history and physical, I have low suspicion for stroke. I discussed with her the utility of CT scanning, but do not feel it is indicated as she has a nonfocal examination. She has already taken her meclizine today so she will be given Valium 2.5 mg. I reviewed her EMR and problem list. I reviewed her laboratory work and it is grossly unremarkable with a normal white count 9.2, hemoglobin 13.8, hematocrit 43.8, platelet count 317. Electrolyte panel is remarkable for BUN of 12 and creatinine 0.55, glucose 94. After Valium 2.5 mg, patient was unable to ambulate, stating that she still feels like she is drunk and was walking into [place]. I performed a CTA of the head and neck which shows an in large lymph node in the submandibular area but no acute process. Patient was discussed with Dr. Grant for observation in the PCU given her intractable vertigo and inability to ambulate. Disposition is assigned observation in stable condition. History & Record Review Discussion w/independent historian: Patient Additional record(s) reviewed:: Prior ED visit Lab Data Attestation: I reviewed the patient's lab results. Labs: Laboratory Results - last 24 hr 08/10/24 09:36 WBC 9.2 RBC 5.05 Hgb 13.8 Hct 43.8 MCV 86.7 MCH 27.3 MCHC 31.5 L RDW Std Deviation 45.6 H RDW Coeff of Thea 14.3 Plt Count 317 MPV 9.7 Immature Gran % (Auto) 0.500 Neut % (Auto) 71.0 H Lymph % (Auto) 21.7 [place] % (Auto) 4.8 Eos % (Auto) 1.6 Baso % (Auto) 0.4 Absolute Neuts (auto) 6.5 Absolute Lymphs (auto) 1.99 Nucleated RBC % 0 Sodium 140 Potassium 3.9 Chloride 103 Carbon Dioxide 26.1 Anion Gap 11 BUN 12 Creatinine 0.55 L Est GFR (MDRD) Non-Af 115 BUN/Creatinine Ratio 21.4 H Glucose 94 Calcium 9.4 Radiography Diagnostic Testing: Clinical Impression(s) from Imaging Studies Head/Neck CTA 08/10/24 10:29 IMPRESSION: There is an enlarged left submandibular lymph node measuring 1.1 x 1.1 cm, image 227/554. There is an enlarged lymph node in the left carotid space measuring 1.1 x 1.2 cm, image 257/554. There is an enlarged lymph node in the right carotid space measuring 1.1 by 1.4 cm, image 251/554. follow-up is recommended. CTA of the head and neck shows no stenosis, occlusion, or visible aneurysm. Reading Location: [facility] Discharge Plan Dx/Rx/DC Orders Clinical Impression: Vertigo, Inability to walk Disposition Disposition: Acute [facility]
[2024-08-10] MEDS: 0.9% Normal Saline (1000mL) 1,000 ML 1000 ML IV (09:34)
[2024-08-10 09:53] LABS: Hematocrit 43.8 % (37-47); Hemoglobin 13.8 g/dL (12.0-15.0); Immature Granulocytes Count 0.050 X10^3/uL (0.0-0.0); Mean Corp Hgb Conc 31.5 g/dL (32-36); Mean Corpuscular Volume 86.7 fL (81-99); Mean Platelet Vol. 9.7 fl (6.2-12.0); NRBC Flagged by Analyzer 0 % (0-5); Platelet Count 317 K/mm3 (150-450); RBC Distribution Width CV 14.3 % (11.6-14.6); RBC Distribution Width SD 45.6 fl (35.1-43.9); Red Blood Count 5.05 M/mm3 (4.2-5.4); White Blood Count 9.2 K/mm3 (4.4-11.0)
[2024-08-10 10:12] LABS: Anion Gap 11 (5-15); BUN 12 mg/dL (4-19); BUN/Creat Ratio 21.4 RATIO (10-20); Calcium,Total 9.4 mg/dL (7.6-11.0); Carbon Dioxide 26.1 mmol/L (21.0-32.0); Chloride 103 mmol/L (98-108); Glucose 94 mg/dL (70-99); Potassium 3.9 mmol/L (3.3-5.1)
--- NOTE | 2024-08-10 10:29 | CT_ITS ---
PROCEDURE: CTA HEAD AND NECK W/ CONTRAST 08/10/2024 REASON FOR EXAM: INTRACTABLE VERTIGO TECHNIQUE: CTA HEAD AND NECK W/ CONTRAST Multiplanar Sagittal and Coronal images were obtained. CONTRAST: 100 cc Isovue 370 One or more dose reduction techniques were used (e.g., Automated exposure control, adjustment of the mA and/or kV according to patient size, use of iterative reconstruction technique). RADIATION DOSE SUMMARY: DLP: 1516.47 mGycm COMPARISON: None FINDINGS: Aortic Arch: Unremarkable Brachiocephalic and Subclavians: Unremarkable RIGHT Carotid: Right CCA: Patent minimal plaque is noted. Right ICA: Patent Maximum stenosis (NASCET): 0 % Right ECA: Patent LEFT Carotid: Left CCA: Patent minimal plaque is noted. Left ICA: Patent Maximum stenosis (NASCET): 0 % Left ECA: Patent Vertebrals: Patent RIGHT Vertebral: Patent LEFT Vertebral: Patent Anatomy: Unremarkable Aneurysm or avm: None Anterior cerebral arteries: Patent Middle cerebral arteries: Patent Basilar artery: Patent Posterior cerebral arteries: Patent Other major branches of the posterior circulation: Unremarkable Major venous structures: Patent Other findings: Neck: There is an enlarged left submandibular lymph node measuring 1.1 x 1.1 cm, image 227/554. There is an enlarged lymph node in the left carotid space measuring 1.1 x 1.2 cm, image 257/554. There is an enlarged lymph node in the right carotid space measuring 1.1 by 1.4 cm, image 251/554. Lungs: Clear bones: There is no acute bony abnormality. CT/CTA Head AND Neck W/ Contrast IMPRESSION: There is an enlarged left submandibular lymph node measuring 1.1 x 1.1 cm, imag e 227/554. There is an enlarged lymph node in the left carotid space measuring 1.1 x 1.2 cm, image 257/554. There is an enlarged lymph node in the right carotid space measuring 1.1 by 1.4 cm, image 251/554. follow-up is recommended. CTA of the head and neck shows no stenosis, occlusion, or visible aneurysm. Reading [facility]
--- NOTE | 2024-08-10 13:16 | HP.PCM.HOS_ITS ---
HPI - General General Date of Admission: 08/10/24 Date of Service: 08/10/24 Chief Complaint: Dizziness/vertigo HPI Narrative LYNDON BURROUGHS, is a 43 F who presented to the emergency department [facility] on 08/10/2024 with a chief complaint of vertigo. Patient evidently has had ongoing intermittent issues with vertigo however her longest episodes are fairly short lasting no more than 10 to 15 minutes. She states that this episode has lasted more than 3 days at this point. She states she gets symptomatic every time she turns her head. She states she has tried the Albert maneuver several times, which usually helps, with no success. She states she has had a extensive workup for vestibular issues and POTS both of which have been negative. She does not think she is ever had an MRI. She states that she has no associated nausea or vomiting and cannot elicit symptoms with moving her head. They do taylor with time if she is still. As long as she does not know she has no symptoms. She noticed that her gait is off as when she moves around to ambulate it worsens. She does indicate that usually with her vestibular symptoms she has an associated headache and she does not have that at this time. Vital signs on presentation are unremarkable. CBC is unremarkable. Chemistry panel is unremarkable. CTA of her head and neck showed enlarged left submandibular lymph nodes which is chronic per discussion with her and a newly enlarged lymph node in the right carotid space. I did discuss with her outpatient follow-up with ENT would likely be the best option for this as it is likely not contributing to her symptoms. I will get carotid duplex to make sure that there is no external compression with impingement of flow on the right carotid artery that could be contributing to her symptoms. Vasculature in the head and neck showed no stenosis, occlusion, or aneurysm. I did attempt to discharge in the emergency department with giving her some low- dose Valium however her symptoms persisted so admission was pursued. [facility], [facility] Medical History Non-smoker Migraines Morbid obesity Osteoarthritis OCD (obsessive compulsive disorder) Schizo-affective psychosis Fibromyalgia Autism Back pain ADHD Depression Anxiety Home Medications Medication Instructions Recorded Last Taken Type bupropion HCl 100 mg tablet 100 mg PO DAILY 07/30/24 0 08/10/24 History cyclobenzaprine 10 mg tablet 10 mg PO QHS PRN PRN musc le spasm 07/30/24 Unknown History lorazepam 0.5 mg tablet 0.5 mg PO QHS PRN PRN anxiet y 07/30/24 Unknown History norethindrone (contraceptive) 0.35 0.35 mg PO DAILY 08/10/24 History mg tablet duloxetine 60 mg capsule,delayed 60 mg PO BID 08/10/24 08/10/24 History release haloperidol 2 mg tablet 2 mg PO DAILY PRN agitation 08/10/24 Unknown History meclizine 25 mg tablet 25 mg PO Q6H PRN dizziness 0 08/10/24 08/10/24 History Allergy/AdvReac Type Severity Reaction Status Date / Time latex Allergy hives Verified 08/10/24 13:47 itching tomato Allergy hives itchy Verified 08/10/24 13:47 Social History Smoking Status: Never smoker ROS Constitutional Constitutional: Denies anorexia, change in weight, chills, fatigue, fever(s), malaise, night sweats, weakness or other Eyes Eyes: Denies blurry vision, change in eye color, change in vision, discharge from eye(s), double vision, erythema, eye pain, loss of vision or other ENT HEENT: Denies abnormal hearing, dysphagia, ear pain, epistaxis, headache(s), hearing loss, nasal congestion, nasal discharge, post nasal drip, sinus pressure, sore throat or other Cardiovascular Cardiovascular: Denies chest pain, claudication, dyspnea on exertion, edema, lightheadedness, orthopnea, palpitations, paroxysmal nocturnal dyspnea, rapid heart rate, syncope or other Respiratory/Chest Respiratory/Chest: Denies cough, dyspnea, excessive phlegm production, hemoptysis, productive cough, shortness of breath at rest, shortness of breath with exertion, wheezing or other Gastrointestinal Gastrointestinal: Denies abdominal pain, coffee ground emesis, constipation, diarrhea, dyspepsia, hematemesis, hematochezia, loose stools, melena, nausea, vomiting or other Genitourinary Genitourinary: Denies burning urination, difficulty urinating, dysuria, hematuria, nocturia, urinary frequency, urinary hesitancy, urinary incontinence, urinary urgency or other Musculoskeletal Musculoskeletal: Denies arthralgias, back pain, joint pain, joint stiffness, joint swelling, myalgias, neck pain or other Neurologic Neurologic: Reports disequilibrium and dizziness; Denies abnormal gait, abnormal speech, confusion, focal weakness, headache(s), numbness, paresthesias, seizure- like activity, seizures, syncope, tingling, tremor(s) or other Psychiatric Psychiatric: Reports anxiety, depression and other Details: OCD Endocrine Endocrinology: Denies change in body appearance, cold intolerance, excessive sweating, heat intolerance, polydipsia, polyuria or other Hematologic/Lymphatic Hematologic/Lymphatic: Denies anemia, easy bleeding, easy bruising, lymphadenopathy or other Allergic/Immunologic Allergic/Immunologic: Denies rhinitis, hives, eczemia, asthma or other Vital Signs Vital Signs Vital Signs: 08/10/24 08:51 08/10/24 10:51 08/10/24 12:00 Temperature 98 F Temperature Source Temporal Pulse Rate 87 76 81 Respiratory Rate 14 18 18 Blood Pressure 153/90 H 132/66 H 140/78 H Blood Pressure Mean 111 88 98 Pulse Ox 98 99 100 Oxygen Delivery Method Room Air Room Air Room Air Weight Weight: 130.257 kg Body Mass Index (BMI) 46.3 Physical Exam Const alert, oriented x3 and no apparent distress; Negative for average body habitus or healthy appearing Constitutional Narrative: Morbidly obese, white female, sitting up in bed, appears comfortable, nontoxic, watching television and texting on her phone General Appearance: cooperative HEENT normocephalic, head/scalp atraumatic, hearing grossly normal bilaterally and moist oral mucous membranes HEENT Narrative: Mallampati 3, no thrush Eyes conjunctivae normal Eyes Narrative: No scleral icterus Neck No no lymphadenopathy and supple Neck Narrative: Bilateral submandibular fullness, right greater than left, trachea midline, no stridor Resp normal respiratory effort, no retractions, no use of accessory muscles and clear to auscultation bilaterally Auscultation: Negative for rales, rhonchi or wheezes Cardio regular rate, regular rhythm, S1 normal heart sound, S2 normal heart sound, no murmurs, no rub, no gallops and no clicks GI normal to inspection, nondistended, normoactive bowel sounds, soft to palpation and non-tender Extremity no clubbing, cyanosis or edema Extremity Narrative: 2+ pedal pulses Neuro oriented x3, moves all extremities and no focal motor deficits Neuro Narrative: No nystagmus Speech: speech normal Motor Exam: strength 5/5 throughout Psych affect normal Psych Narrative: Pleasant, interacts normally, eye contact is good Results Lab / Micro Data 08/10/24 09:36 08/10/24 09:36 Labs: Laboratory Results - last 24 hr 08/10/24 09:36: WBC 9.2, RBC 5.05, Hgb 13.8, Hct 43.8, MCV 86.7, MCH 27.3, MCHC 31.5 L, RDW Std Deviation 45.6 H, RDW Coeff of Thea 14.3, Plt Count 317, MPV 9.7, Immature Gran % (Auto) 0.500, Neut % (Auto) 71.0 H, Lymph % (Auto) 21.7, Levy % (Auto) 4.8, Eos % (Auto) 1.6, Baso % (Auto) 0.4, Absolute Neuts (auto) 6.5, Absolute Lymphs (auto) 1.99, Nucleated RBC % 0, Sodium 140, Potassium 3.9, Chloride 103, Carbon Dioxide 26.1, Anion Gap 11, BUN 12, Creatinine 0.55 L, Est GFR (MDRD) Non-Af 115, BUN/Creatinine Ratio 21.4 H, Glucose 94, Calcium 9.4 Imaging Radiology Impression Head/Neck CTA 08/10/24 10:29 IMPRESSION: There is an enlarged left submandibular lymph node measuring 1.1 x 1.1 cm, image 227/554. There is an enlarged lymph node in the left carotid space measuring 1.1 x 1.2 cm, image 257/554. There is an enlarged lymph node in the right carotid space measuring 1.1 by 1.4 cm, image 251/554. follow-up is recommended. CTA of the head and neck shows no stenosis, occlusion, or visible aneurysm. Reading Location: [place] Assessment & Plan Assessment/Plan (1) Vertigo: (2) Inability to walk: (3) Enlarged lymph node in neck: PLAN: Plan Vertigo/inability ambulate -Highly doubt stroke as this is elicited and abated with movement - Check MRI with and without contrast - Check carotid ultrasound given lymphadenopathy with suggested carotid artery compression on CTA of the head and neck - As needed Valium - PT/OT consultation for stability - Neurology consultation Bilateral submandibular lymphadenopathy - ENT referral after discharge unless carotid ultrasound shows significant flow issues at the right carotid artery Chronic back pain - Continue home as needed Flexeril OCD/schizoaffective disorder - Continue home duloxetine - Continue home Wellbutrin - Continue home as needed Haldol - Will hold as needed lorazepam since we are using Valium for dizziness and restart lorazepam at discharge Morbid obesity - BMI is 45.7 - complicates treatment, prognosis, outcomes - Recommend weight loss - Patient states she had a negative outpatient polysomnography recently DVT prophylaxis - Subcu Lovenox twice daily CODE STATUS - Full code Charges/Coding Visit Charges Inpatient E&M: 84298 Init Hosp L2
--- NOTE | 2024-08-10 15:57 | CDU_ITS ---
Reason For Study Reason For Study: Dizziness Rt. Velocities/BP Lt. Velocities/BP Prox CCA 120.4/10.8 cm/sec. Prox CCA 127.7/29.0 cm/sec. Mid CCA 125.8/19.9 cm/sec. Mid CCA 96.6/21.7 cm/sec. Dist CCA 94.8/21.7 cm/sec. Dist CCA 83.8/21.7 cm/sec. Prox ICA 69.2/21.7 cm/sec. Prox ICA 63.7/23.6 cm/sec. Mid ICA 95.6/31.8 cm/sec. Mid ICA 71.1/25.1 cm/sec. Dist ICA 78.5/35.5 cm/sec. Dist ICA 99.3/37.1 cm/sec. Rt. ICA/CCA = 0.8. Lt. ICA/CCA = 1.0. Prox ECA 58.5/9.4 cm/sec. Prox ECA 109.4/10.8 cm/sec. Rt. Vert. 78.4/14.4 cm/sec. Lt. Vert. 38.1/15.8 cm/sec. Right Extracranial There is intimal thickening but no significant atherosclerotic plaque noted in the right common carotid artery. There is intimal thickening but no significant atherosclerotic plaque noted in the right internal carotid artery. The distal right internal carotid artery is not well visualized. There is intimal thickening but no significant atherosclerotic plaque noted in the right external carotid artery. Antegrade flow is noted in the right vertebral artery. Left Extracranial There is intimal thickening but no significant atherosclerotic plaque noted in the left common carotid artery. There is intimal thickening but no significant atherosclerotic plaque noted in the left internal carotid artery. The distal left internal carotid artery is not well visualized. There is heterogeneous, irregular atherosclerotic plaque noted in the left external carotid artery. Antegrade flow is noted in the left vertebral artery. Procedure Carotid Duplex [id number]. This is a Carotid Duplex examination using B-mode, color flow and specral Doppler. The exam was diagnostic. Exam performed portable in patient room. VL/Carotid Duplex Ultrasound Interpretation Summary Normal right extracranial internal carotid. Normal left extracranial internal carotid. Patent and antegrade vertebrals bilaterally. Ordering Physician: Alisa Grant Referring Physician: Martha Mercer Performed By: Kenji Gatica RVT
--- NOTE | 2024-08-10 16:30 | MRI_ITS ---
PROCEDURE: BRAIN W/WO CONTRAST 08/10/2024 REASON FOR EXAM: VERTIGO TECHNIQUE: BRAIN W/WO CONTRAST Multiplanar and multisequence images were obtained. CONTRAST: Clariscan VOLUME: 26 mL COMPARISON: None. FINDINGS: The ventricles are normal in size and midline in position. No evidence of acute hemorrhage or infarction. No extra-axial blood or fluid collections. No abnormal intracranial enhancement. The paranasal sinuses are clear. The mastoid air cells are well aerated. The calvarial vault and skull base are intact. MRI/Brain W/WO Contrast IMPRESSION: No acute intracranial abnormalities. Reading Location: [place] [id number]
[2024-08-10 22:08] LABS: Internal QC Validated? YES +Cl - CLEAR BKGD; Pregnancy, Urine Negative Negative; Record Kit Lot#,Urine Preg 947241
[2024-08-11 03:21] VITALS: BMI 45.8
[2024-08-11 03:30] VITALS: BP 140/82; PULSE 81; RESP 16; TEMP 36.8; O2SAT 98
[2024-08-11 06:26] LABS: Hematocrit 38.1 % (37-47); Hemoglobin 12.1 g/dL (12.0-15.0); Immature Granulocytes Count 0.050 X10^3/uL (0.0-0.0); Mean Corp Hgb Conc 31.8 g/dL (32-36); Mean Corpuscular Volume 87.4 fL (81-99); Mean Platelet Vol. 9.9 fl (6.2-12.0); NRBC Flagged by Analyzer 0 % (0-5); Platelet Count 281 K/mm3 (150-450); RBC Distribution Width CV 14.4 % (11.6-14.6); RBC Distribution Width SD 46.4 fl (35.1-43.9); Red Blood Count 4.36 M/mm3 (4.2-5.4); White Blood Count 9.1 K/mm3 (4.4-11.0)
[2024-08-11 07:06] LABS: AST(SGOT) 13 U/L (<=31); Alanine Aminotransfer ALT/SGPT 15 U/L (<=34); Albumin, Serum 3.7 g/dL (3.5-5.0); Alkaline Phosphatase 81 U/L (35-104); Anion Gap 9 (5-15); BUN 12 mg/dL (4-19); BUN/Creat Ratio 22.1 RATIO (10-20); Calcium,Total 9.0 mg/dL (7.6-11.0); Carbon Dioxide 25.0 mmol/L (21.0-32.0); Chloride 104 mmol/L (98-108); Estimated Creatinine Clearance 181.06 ml/min (50-250); Globulin 2.8 g/dL (2.2-4.2); Glucose 85 mg/dL (70-99); Magnesium 2.2 mg/dL (1.5-2.2); Potassium 4.4 mmol/L (3.3-5.1)
--- NOTE | 2024-08-11 07:47 | CON.PCM.NE_ITS ---
Assessment and Plan: Neuro Assessment/Plan LYNDON BURROUGHS is a 43 F with a past medical history of known BPPV, schizoaffective disorder, being evaluated by Teleneurology for prolonged dizziness. This is similar to her typical symptoms but lasted longer, no other associated symptoms that are focal motor or sensory. Exam is benign for focal lesions and imaging without evidence of stroke, mass, or demyelinating lesions that would suggest this is different than her typical BPPV. Unfortunately her exam does suggest this may be more a superior canal dysfunction which do not respond as well to Albert maneuvers. Symptoms control as below. Diagnosis: BPPV Plan: - continue PRN valium for symptom control, consider scopolamine patch - Recommend continued PT assistance and consideration of the [place] and reverse Albert maneurvers given concern for L superior canal dysfunction I personally attended this patient and spent a total time of 45minutes evaluating this patient including clinical assessment, review of chart, medical history imaging, and determining appropriate treatment and workup. HPI Consult Data Date of Consult: 08/11/24 HPI Narrative HPI Narrative: LYNDON BURROUGHS, is a 43 F who presented to the emergency department [facility] on 08/10/2024 with a chief complaint of vertigo. Patient evidently has had ongoing intermittent issues with vertigo however her longest episodes are fairly short lasting no more than 10 to 15 minutes. She states that this episode has lasted more than 3 days at this point. She states she gets symptomatic every time she turns her head. She states she has tried the Albert maneuver several times, which usually helps, with no success. She states she has had a extensive workup for vestibular issues and POTS both of which have been negative. She does not think she is ever had an MRI. She states that she has no associated nausea or vomiting and cannot elicit symptoms with moving her head. They do taylor with time if she is still. As long as she does not know she has no symptoms. She noticed that her gait is off as when she moves around to ambulate it worsens. She does indicate that usually with her vestibular symptoms she has an associated headache and she does not have that at this time. Neurologic History This is her typical dizziness but lasting a lot more and today is day 4. She woke up in the morning and trigger is the same as normal. She did Albert and it did not improve the dizziness. She had very light dizziness initially and then got sigfniciantly worse on day 2 and moving forward. On day 2, the meclizine worked the first 2 doses. This stopped working after day 3. Whe rolling over and looking to the R the room will start to spin. when standing up to walk will drift sideways. Sitting during our interview, patient feels lightheaded but nothing is spinning or moving. Denies a headache. No eye pain but when looking down and reading on her phone will spin. Will take cyclobenzaprine and ativan 3x a month for teeth grinding. Not on haldol currently - was prescribed it PRN for hallucinations and paranoia. No changes in doses of the buproprion and duloxetine. Will get these episodes once or twice a year she will get BPPV and the Albert maneuver makes it get better. No changes in exercise or diet. Exam: - General: Laying comfortably in bed; in no acute distress. - HENT: Normal oropharynx and mucosa. Normal external appearance of ears and nose. Exophthalmos. - Neck: Supple, no pain or tenderness - CV: No peripheral edema. - Pulmonary: Normal respiratory effort. - Ext: No cyanosis, edema, or deformity - Skin: No rash. Normal palpation of skin. - Musculoskeletal: full range of motion; no joint tenderness. Normal digits and nails by inspection. No clubbing. - NEURO: - Mental Status: The patient was alert and oriented to time, place, and person. Normal recent/remote memory, concentration, and general fund of knowledge. - Language: speech is clear. Naming, repetition, fluency, and comprehension intact. - Cranial Nerves: PERRL 3mm/brisk. There is L gaze fast rotational down nystagmus. EOMI, visual ewing full, no facial asymmetry, facial sensation intact, hearing intact, tongue midline, no evidence of atrophy or fibrillations. - Motor: normal bulk, tone, and strength throughout. No pronator drift or satelliting. Upper and lower extremities equal bilaterally. 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 - Gait- deferred d/t dizziness PFSH Medical History Non-smoker Migraines Morbid obesity Osteoarthritis OCD (obsessive compulsive disorder) Schizo-affective psychosis Fibromyalgia Autism Back pain ADHD Depression Anxiety Home Medications Medication Instructions Recorded Last Taken Type bupropion HCl 100 mg tablet 100 mg PO DAILY 07/30/24 0 08/10/24 History cyclobenzaprine 10 mg tablet 10 mg PO QHS PRN PRN musc le spasm 07/30/24 Unknown History lorazepam 0.5 mg tablet 0.5 mg PO QHS PRN PRN anxiet y 07/30/24 Unknown History norethindrone (contraceptive) 0.35 0.35 mg PO DAILY 08/10/24 History mg tablet duloxetine 60 mg capsule,delayed 40 mg PO BID 08/10/24 08/10/24 History release haloperidol 2 mg tablet 2 mg PO DAILY PRN agitation 08/10/24 Unknown History meclizine 25 mg tablet 25 mg PO Q6H PRN dizziness 0 08/10/24 08/10/24 History Allergy/AdvReac Type Severity Reaction Status Date / Time latex Allergy hives Verified 08/10/24 13:47 itching tomato Allergy hives itchy Verified 08/10/24 13:47 Social History Smoking Status: Never smoker Vital Signs Vital Signs Vital Signs: 08/10/24 08:51 08/10/24 10:51 08/10/24 12:00 Temperature 98 F Temperature Source Temporal Pulse Rate 87 76 81 Respiratory Rate 14 18 18 Respiratory Effort Respiratory Depth Respiratory Pattern Blood Pressure 153/90 H 132/66 H 140/78 H Blood Pressure Mean 111 88 98 Blood Pressure Source Blood Pressure Position Blood Pressure Location Pulse Ox 98 99 100 Oxygen Delivery Method Room Air Room Air Room Air 08/10/24 13:30 08/10/24 14:04 08/10/24 14:19 Temperature 98.6 F 98.4 F Temperature Source Oral Pulse Rate 79 83 Respiratory Rate 18 18 Respiratory Effort Normal Non-Labored Respiratory Depth Normal Respiratory Pattern Normal Blood Pressure 141/78 H 139/61 H Blood Pressure Mean 99 87 Blood Pressure Source Monitor Blood Pressure Position Semi-Fowlers Blood Pressure Location Right Arm Pulse Ox 98 98 Oxygen Delivery Method Room Air Room Air 08/10/24 17:49 08/10/24 21:25 08/10/24 21:25 Temperature 97.8 F 98.1 F Temperature Source Oral Oral Pulse Rate 87 87 Respiratory Rate 14 16 Respiratory Effort Respiratory Depth Respiratory Pattern Blood Pressure 130/96 H 140/84 H Blood Pressure Mean 107 102 Blood Pressure Source Monitor Monitor Blood Pressure Position Semi-Fowlers Semi-Fowlers Blood Pressure Location Right Forearm Right Arm Pulse Ox 96 98 98 Oxygen Delivery Method Room Air Room Air Room Air 08/10/24 21:30 08/11/24 03:30 08/11/24 03:30 Temperature 98.2 F Temperature Source Oral Pulse Rate 81 Respiratory Rate 16 Respiratory Effort Normal Non-Labored Normal Non-Labored Respiratory Depth Normal Normal Respiratory Pattern Normal Normal Blood Pressure 140/82 H Blood Pressure Mean 101 Blood Pressure Source Monitor Blood Pressure Position Semi-Fowlers Blood Pressure Location Right Arm Pulse Ox 98 Oxygen Delivery Method Room Air Room Air Room Air Weight Weight: 129 kg Body Mass Index (BMI) 45.8 EEG Results Procedure Details EEG Procedure Details: LYNDON BURROUGHS is a 43 year old F with a past medical history of , who presents for evaluation of Electroencephalogram on DATE at TIME Lab / Micro Data 08/11/24 05:38 08/11/24 05:38 Labs: Laboratory Results - last 24 hr 08/10/24 09:36: WBC 9.2, RBC 5.05, Hgb 13.8, Hct 43.8, MCV 86.7, MCH 27.3, MCHC 31.5 L, RDW Std Deviation 45.6 H, RDW Coeff of Thea 14.3, Plt Count 317, MPV 9.7, Immature Gran % (Auto) 0.500, Neut % (Auto) 71.0 H, Lymph % (Auto) 21.7, [place] % (Auto) 4.8, Eos % (Auto) 1.6, Baso % (Auto) 0.4, Absolute Neuts (auto) 6.5, Absolute Lymphs (auto) 1.99, Nucleated RBC % 0, Sodium 140, Potassium 3.9, Chloride 103, Carbon Dioxide 26.1, Anion Gap 11, BUN 12, Creatinine 0.55 L, Est GFR (MDRD) Non-Af 115, BUN/Creatinine Ratio 21.4 H, Glucose 94, Calcium 9.4 08/10/24 18:35: Urine Test Cancelled 08/10/24 21:20: Urine Test Negative 08/11/24 05:38: WBC 9.1, RBC 4.36, Hgb 12.1, Hct 38.1, MCV 87.4, MCH 27.8, MCHC 31.8 L, RDW Std Deviation 46.4 H, RDW Coeff of Thea 14.4, Plt Count 281, MPV 9.9, Immature Gran % (Auto) 0.500, Neut % (Auto) 63.5, Lymph % (Auto) 28.6, [place] % (Auto) 5.4, Eos % (Auto) 1.6, Baso % (Auto) 0.4, Absolute Neuts (auto) 5.8, Absolute Lymphs (auto) 2.61, Nucleated RBC % 0, Sodium 138, Potassium 4.4, Chloride 104, Carbon Dioxide 25.0, Anion Gap 9, BUN 12, Creatinine 0.54 L, Estim Creat Clear Calc 181.06, Est GFR (MDRD) Non-Af 115, BUN/Creatinine Ratio 22.1 H, Glucose 85, Calcium 9.0, Phosphorus 2.7, Magnesium 2.2, Total Bilirubin 0.28, AST 13, ALT 15, Alkaline Phosphatase 81, Total Protein 6.4, Albumin 3.7, Globulin 2.8, Albumin/Globulin Ratio 1.3, TSH 1.260 Imaging Radiology Impression Head/Neck CTA 08/10/24 10:29 IMPRESSION: There is an enlarged left submandibular lymph node measuring 1.1 x 1.1 cm, image 227/554. There is an enlarged lymph node in the left carotid space measuring 1.1 x 1.2 cm, image 257/554. There is an enlarged lymph node in the right carotid space measuring 1.1 by 1.4 cm, image 251/554. follow-up is recommended. CTA of the head and neck shows no stenosis, occlusion, or visible aneurysm. [facility] 08/10/24 16:30 IMPRESSION: No acute intracranial abnormalities. Reading Location: [id number] Active Medications Active Medications Active Medications: Current Medications Generic Name Dose Route Start Last Admin Trade Name Freq PRN Reason Stop Dose Admin Acetaminophen 650 mg 08/10/24 14:18 Acetaminophen 325 Mg Tablet PO Q6H PRN PRN Pain 1-10 Or Fever>100.7 Albuterol Sulfate 2.5 mg 08/10/24 14:18 Albuterol 2.5 Mg/3 Ml Vial.Neb. INHALATION Q2H PRN PRN SOB &/OR WHEEZING Bupropion HCl 100 mg 08/11/24 10:00 Bupropion 100 Mg Tablet PO DAILY LEENA Cyclobenzaprine HCl 10 mg 08/10/24 14:18 Cyclobenzaprine Hcl 10 Mg Tablet PO QHS PRN PRN muscle spasm Diazepam 4 mg 08/10/24 14:18 08/11/24 03:37 Diazepam 2 Mg Tablet PO 4 mg TID PRN PRN Administration Dizziness/vertigo Duloxetine HCl 40 mg 08/10/24 22:00 08/10/24 22:22 Duloxetine Hcl 20 Mg Capsule PO 40 mg BID LEENA Administration Enoxaparin Sodium 40 mg 08/10/24 22:00 08/10/24 22:23 Enoxaparin 40 Mg/0.4 Ml Syringe SC 40 mg BID LEENA Administration Haloperidol 2 mg 08/10/24 14:23 Haloperidol 1 Mg Tablet PO DAILY PRN agitation Sodium Chloride 250 mls @ 15 mls/hr 08/10/24 14:09 IV .[id number] PRN Saline Flush Sodium Chloride 250 mls @ 15 mls/hr 08/10/24 14:09 IV .[id number] PRN Additional IVPB Infusion Melatonin 3 mg 08/10/24 14:18 Melatonin 3 Mg Tablet PO QHS PRN PRN INSOMNIA Norethindrone 0.35 mg 08/10/24 21:00 08/10/24 21:34 Norethindrone 0.35 Mg Tablet PO Not Given DAILY LEENA Ondansetron HCl 4 mg 08/10/24 14:18 Ondansetron 4 Mg/2 Ml Vial IV Q8H PRN PRN NAUSEA/VOMITING Prochlorperazine Edisylate 5 mg 08/10/24 14:18 Prochlorperazine 10 Mg/2 Ml Vial IV Q4H PRN PRN Breakthrough Nausea/Vomiting Senna/Docusate Sodium 2 tablet 08/10/24 14:18 Senna/Docusate Sodium 1 Tablet PO BID PRN PRN Constipation Sodium Chloride 10 - 40 ml 08/10/24 14:09 0.9% Saline Lock 10 Ml Syringe IV UD PRN SALINE FLUSH
[2024-08-11 08:28] VITALS: BP 150/88; PULSE 85; RESP 14; TEMP 36.6; O2SAT 97
[2024-08-11] MEDS: NORETHINDRONE 0.35 MG TABLET PO (08:31)
[2024-08-11 14:41] VITALS: BP 144/84; PULSE 83; RESP 14; TEMP 36.9; O2SAT 100
--- NOTE | 2024-08-11 15:14 | DS.PCM_ITS ---
Providers Date of Admission: 08/10/24 Date of Discharge: 08/11/24 Primary Care Physician: Dr. Martha Mercer MD Consultations 08/10/24 15:59 Consult: Tele-Neurology Routine Consulting Provider: [facility] Reason for Consult: Dizziness EMERGENT Consult: No Notified: Yes Date Notified: 08/10/24 Time Notified: 16:24 Method of Notification: [facility] Staff Notify [facility] of Tele-Neurology Consult: Yes Reason For Visit: INTRACTABLE VERTIGO Diagnosis Discharge Diagnosis (1) Vertigo: Status: Acute Code(s): R42 - Dizziness and giddiness (2) Inability to walk: Status: Acute Code(s): R26.2 - Difficulty in walking, not elsewhere classified (3) Enlarged lymph node in neck: Status: Acute Code(s): R59.0 - Localized enlarged lymph nodes Medications at Discharge Home Medications bupropion HCl 100 mg tablet 100 mg PO DAILY 07/30/24 cyclobenzaprine 10 mg tablet 10 mg PO QHS PRN PRN muscle spasm 07/30/24 lorazepam 0.5 mg tablet 0.5 mg PO QHS PRN PRN anxiety 07/30/24 Held on 08/11/24. Instructions: Resume on 08/11/24. While using Valium for vertigo norethindrone (contraceptive) 0.35 mg tablet 0.35 mg PO DAILY 07/30/24 duloxetine 60 mg capsule,delayed release 40 mg PO BID 08/10/24 haloperidol 2 mg tablet 2 mg PO DAILY PRN agitation 08/10/24 meclizine 25 mg tablet 25 mg PO Q6H PRN dizziness 08/10/24 Held on 08/11/24. Instructions: While using Valium for vertigo diazepam 2 mg tablet 4 mg (2 x 2 mg) PO TID PRN PRN Dizziness/vertigo #15 tabs 08/11/24 Hospital Course Summary of Care Provided Minutes Spent on Discharge: 25 Hospital Course: LYNDON BURROUGHS, is a 43 F who presented to the emergency department [facility] on 08/10/2024 with a chief complaint of vertigo. Patient evidently has had ongoing intermittent issues with vertigo however her longest episodes are fairly short lasting no more than 10 to 15 minutes. She states that this episode has lasted more than 3 days at this point. She states she gets symptomatic every time she turns her head. She states she has tried the Albert maneuver several times, which usually helps, with no success. She states she has had a extensive workup for vestibular issues and POTS both of which have been negative. She does not think she is ever had an MRI. She states that she has no associated nausea or vomiting and cannot elicit symptoms with moving her head. They do taylor with time if she is still. As long as she does not know she has no symptoms. She noticed that her gait is off as when she moves around to ambulate it worsens. She does indicate that usually with her vestibular symptoms she has an associated headache and she does not have that at this time. Vital signs on presentation are unremarkable. CBC is unremarkable. Chemistry panel is unremarkable. CTA of her head and neck showed enlarged left submandibular lymph nodes which is chronic per discussion with her and a newly enlarged lymph node in the right carotid space. I did discuss with her outpatient follow-up with ENT would likely be the best option for this as it is likely not contributing to her symptoms. I will get carotid duplex to make sure that there is no external compression with impingement of flow on the right carotid artery that could be contributing to her symptoms. Vasculature in the head and neck showed no stenosis, occlusion, or aneurysm. Patient was admitted and monitored on telemetry with no arrhythmias noted. She was treated with Valium for her dizziness which seem to help her symptoms. We got an MRI with and without contrast which was unremarkable. She was evaluated by neurology who felt that she had BPPV but the superior canal which is why her symptoms did not respond to the Albert maneuver. She is currently not having any nausea or dizziness so I will go ahead and discharge her with Valium as this seems to be helpful. She is written for 5 days. I also gave her prescription for vestibular rehab and she was instructed to see a physical therapist for this. She was evaluated by physical therapy and she was able to independently ambulate in the hallways. There were no concerns with her going home by therapy services. Her imaging did note bilateral submandibular lymphadenopathy. Referral to ENT was made at the time of discharge for further evaluation. Patient was discharged in stable condition on 08/11/2024. Discharge diagnoses: Vertigo secondary to superior canal BPPV Bilateral submandibular lymphadenopathy Chronic back pain OCD Schizoaffective disorder Morbid obesity Physical Exam Const alert, oriented x3, no apparent distress, no limitations and well nourished; Negative for average body habitus or healthy appearing Constitutional Narrative: Morbidly obese, white female, lying in bed watching television, appears comfortable, nontoxic General Appearance: cooperative, comfortable, well kempt and well developed Exam Limitations: no limitations Nutritional Appearance: morbidly obese HEENT normocephalic, head/scalp atraumatic, hearing grossly normal bilaterally and moist oral mucous membranes Resp normal respiratory effort, no retractions, no use of accessory muscles and clear to auscultation bilaterally Auscultation: Negative for rales, rhonchi or wheezes Cardio regular rate, regular rhythm, S1 normal heart sound, S2 normal heart sound, no murmurs, no rub, no gallops and no clicks GI normal to inspection, nondistended, normoactive bowel sounds, soft to palpation and non-tender Extremity no clubbing, cyanosis or edema Extremity Narrative: 2+ pedal pulses Neuro oriented x3, moves all extremities and no focal motor deficits Neuro Narrative: No nystagmus Psych affect normal Psych Narrative: Pleasant, interacts normally, eye contact is good Weight / BMI Weight Weight: 129 kg Body Mass Index (BMI) 45.8 ABG / Lab / Microbiology Data 08/11/24 05:38 08/11/24 05:38 Laboratory: Laboratory Results - last 24 hr 08/10/24 18:35: Urine Test Cancelled 08/10/24 21:20: Urine Test Negative 08/11/24 05:38: WBC 9.1, RBC 4.36, Hgb 12.1, Hct 38.1, MCV 87.4, MCH 27.8, MCHC 31.8 L, RDW Std Deviation 46.4 H, RDW Coeff of Thea 14.4, Plt Count 281, MPV 9.9, Immature Gran % (Auto) 0.500, Neut % (Auto) 63.5, Lymph % (Auto) 28.6, [place] % (Auto) 5.4, Eos % (Auto) 1.6, Baso % (Auto) 0.4, Absolute Neuts (auto) 5.8, Absolute Lymphs (auto) 2.61, Nucleated RBC % 0, Sodium 138, Potassium 4.4, Chloride 104, Carbon Dioxide 25.0, Anion Gap 9, BUN 12, Creatinine 0.54 L, Estim Creat Clear Calc 181.06, Est GFR (MDRD) Non-Af 115, BUN/Creatinine Ratio 22.1 H, Glucose 85, Calcium 9.0, Phosphorus 2.7, Magnesium 2.2, Total Bilirubin 0.28, AST 13, ALT 15, Alkaline Phosphatase 81, Total Protein 6.4, Albumin 3.7, Globulin 2.8, Albumin/Globulin Ratio 1.3, TSH 1.260 Radiography Diagnostic Testing: Radiology Impression Brain MRI 08/10/24 16:30 IMPRESSION: No acute intracranial abnormalities. Reading Location: [place] [id number] D/C Instructions Discharge Diet: Low fat / Low cholesterol DC O2, CPAP, BIPAP Needs Home O2 Discharge instructions: No Meaningful Use Info Meaningful Use Meaningful Use Diagnoses (Choose all that apply): None applicable Ischemic Stroke Statin Dosing Therapy Reference: STATIN DOSE THERAPY REFERENCE: * Patients > 75 years receive moderate or high dose statin therapy. * Patients 75 years or YOUNGER should receive HIGH intensity statin dose unless contraindicated. You will be required to document reason for non-treatment if statin daily dose does not meet guidelines. HIGH DOSE STATIN THERAPY DAILY Atorvastatin > than or = to 40 mg Rosuvastatin > than or = to 20 mg Amlodipine + Atorvastatin > than or = to 2.5/40 mg Ezetimibe + Simvastatin 10/80 mg Simvastatin 80mg Discharge Plan Admission Admit Date/Time: 08/10/24 13:09 Primary Reason for Your Visit: Vertigo Attending Provider: Alisa Grant Primary Care Provider: Martha Mercer Consulting Providers: Jet Muller; Brea López; Magi Rodriguez; Binta Giles; Nevaeh Young; Callum Perez; Emerita Stark; Dez Briggs; Jhon Salas; Nitin Sanders; Neelam Mayfield; Miguel Nunez; Yeni Sharpe; Kelly Lima; Luly Multani; Colten Costa; Tanner Roberto; Mark Childress; Naz Grant; Tashi Santoyo Instructions Additional Instructions / Restrictions: 1. Neuro suspect posterior canal vertigo and outpatient physical therapy for vestibular rehab was recommended. We have written a prescription please follow- up with this. I have written for 5 days of Valium. Please do not take Ativan with Valium as this could be dangerous combination. 2. As discussed, we also did find some lymph nodes in your neck that were swollen. Please call the ear nose and throat below to be evaluated for this Discharge Orders/Prescriptions Prescriptions: New diazepam 2 mg Tablet 4 mg PO TID PRN PRN (Reason: Dizziness/vertigo) Qty: 15 0RF Continued haloperidol 2 mg tablet 2 mg PO DAILY PRN (Reason: agitation) duloxetine 60 mg capsule,delayed release(DR/EC) 40 mg PO BID bupropion HCl 100 mg tablet 100 mg PO DAILY norethindrone (contraceptive) 0.35 mg tablet 0.35 mg PO DAILY cyclobenzaprine 10 mg tablet 10 mg PO QHS PRN PRN (Reason: muscle spasm) Held meclizine 25 mg tablet 25 mg PO Q6H PRN (Reason: dizziness) Hold Instructions: While using Valium for vertigo lorazepam 0.5 mg tablet 0.5 mg PO QHS PRN PRN (Reason: anxiety) Hold Instructions: Resume on 08/11/24. While using Valium for vertigo Referrals / Follow Up: Martha Mercer MD [Primary Care Provider] - Within 2 Weeks Regis Weathers MD [Med Staff - Active Staff] - See Referral Note (Call Thursday to set up an appointment to be seen at their first availability for submandibular lymphadenopathy) Disposition Disposition (needs filled in before D/C Order can be placed): Home, Self Care Charges/Coding Visit Charges Inpatient E&M: 45972 Disch Hosp
--- NOTE | 2024-08-11 15:31 | CASEMGMT ---
OLVIN MCCARTHY received script for outpatient vestibular therapy. Patient has order for discharge. OLVIN CM in to discuss needs at discharge. Bobbin states she would like to schedule outpatient therapy herself. Patient had no further needs or concerns at discharge. OLVIN MCCARTHY placed outpatient script in discharge packet.
== END 2024-08-11 18:38 | disposition home or self-care (01) ==
LOC: ED 13:11 → PCU 13:24
PROVIDERS: Admitting Provider Internal Medicine; Emergency Provider Emergency Medicine; PCP Internal Medicine; Visit Provider Internal Medicine
DX: H81.10 Benign paroxysmal vertigo, unspecified ear (principal); F25.9 Schizoaffective disorder, unspecified; E66.01 Morbid (severe) obesity due to excess calories; Z68.42 Body mass index [BMI] 45.0-49.9, adult; F42.9 Obsessive-compulsive disorder, unspecified; R59.0 Localized enlarged lymph nodes; M79.7 Fibromyalgia; F84.0 Autistic disorder; F90.9 Attention-deficit hyperactivity disorder, unspecified type; Z79.899 Other long term (current) drug therapy; F41.9 Anxiety disorder, unspecified; F32.A Depression, unspecified
CPT/HCPCS: 36415; 70496; 70498; 70553; 80048; 80053; 81025; 83735; 84100; 84443; 85025; 93880; 94668; 96360; 96361; 96372; 97162; 97166; 99221; 99284; A9575; Q9967; A4216; G0378